=== PATIENT | male | born 1935 | race Caucasian/White ===

== ENCOUNTER 2020-04-06 09:36 | Emergency (ER) | payer MEDICARE, BC, SELFPAY ==
[2020-04-06] VITALS (9 sets, daily range): BP systolic 101–118; BP diastolic 58–78; PULSE 60–88; RESP 17–24; TEMP 36.8; O2SAT 97–98; BMI 26.6
--- NOTE | 2020-04-06 09:48 | XRR_ITS ---
PROCEDURE INFORMATION: Exam: XR Chest, 1 View Exam date and time: 04/06/2020 10:03 AM Age: 84 years old Clinical indication: Other: Syncope; Prior surgery; Surgery type: Pacemaker TECHNIQUE: Imaging protocol: XR of the chest Views: 1 view. COMPARISON: CR Chest 2 views* [id number] 12/03/2017 10:09 AM FINDINGS: Tubes, catheters and devices: Incomplete visualization of pacemaker. Lungs: Incomplete visualization of the lung base. Emphysematous change and interstitial prominence . Pleural space: Nonvisualization of the costophrenic angles. Heart/Mediastinum: Bypass surgery. No cardiomegaly. Bones/joints: Osteopenia and degenerative change. XR/XR chest 1V portable [id number] IMPRESSION: Emphysematous change and interstitial prominence in the incompletely visualized lung molina.
--- NOTE | 2020-04-06 09:48 | CT_ITS ---
WS: [id number] CT HEAD NONCONTRAST HISTORY: dizziness TECHNIQUE: Contiguous axial imaging performed through the brain in 2.5 mm imaging. Bone and soft tiss ue windows. Sagittal and coronal reformats reviewed. All CT scans at [facility] use at ast one of these dose optimization techniques: automated exposure control; mA and/or kV adjustment pe r patient size (includes targeted exams where dose is matched to clinical indication); or iterative r econstruction. DLP: 844.44 mGy.cm COMPARISON: 03/02/2017 No acute intracranial hemorrhage, midline shift or mass effect. Mild atrophy and chronic ischemic disease. Ventricles: Normal size with no hydrocephalus. Paranasal sinuses: Mild mucoperiosteal thickening in the maxillary sinuses. Mastoid air cells: Well pneumatized. Calvarium and scalp: Skull is intact with no soft tissue edema or swelling. CT/CT head wo con* [id number] IMPRESSION: 1. No acute intracranial hemorrhage or edema. 2. Mild atrophy and chronic ischemic disease.
--- NOTE | 2020-04-06 09:49 | ECG_ITS ---
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 Measurements Intervals [place] Rate: 65 P: 232 MI: 133 QRS: 236 QRSD: 175 T: 14 QT: 489 QTc: 512 Interpretive Statements ELECTRONIC ATRIAL PACEMAKER ELECTRONIC VENTRICULAR PACEMAKER Compared to ECG 12/04/2017 12:47:57 No significant changes Electronically Signed On 04-07-2020 20:26:38 CDT by Marek Redmond M.D. [email or web address]
[2020-04-06 10:17] LABS: Basophils # 0.1 10^3/uL (0.0-0.1); Basophils % 0.2 %; Eosinophils # 0.1 10^3/uL (0.0-0.8); Eosinophils % 0.3 %; Hematocrit 30.7 % (42.0-52.0); Lymphocytes # 0.9 10^3/uL (0.8-4.8); Mean Corpuscular HGB Conc 32.6 g/dL (30.0-36.0); Mean Corpuscular Hemoglobin 26.4 pg (28.0-34.0); Monocytes # 1.3 10^3/uL (0.2-0.9); Monocytes % 6.1 %; Neutrophils % 87.7 %; Nucleated Red Blood Cells % 0 %; Platelet Count 148 10^3/cmm (130-400); Red Blood Count 3.79 10^6/uL (4.1-5.3); White Blood Count 21.1 10^3/uL (4.0-10.0)
--- NOTE | 2020-04-06 10:28 | ED_ITS ---
HPI - Dizziness General: Chief Complaint: Dizziness Stated Complaint: WEAKNESS Time Seen by Provider: 04/06/20 09:43 History of Present Illness: HPI Narrative: 84-year-old male patient presents to the emergency department via EMS from home. He reports onset of weakness and dizziness that started this morning upon awakening around 730. Per EMS, stroke scale 0. Patient reports his blood pressure this morning was 80/40, EMS reports blood pressure 110/60; permanent pacemaker placed 2017. History of underlying atrial fib and sick sinus syndrome, patient of Dr. Gordon with last evaluation December 2019, previous TAVR/CABG. He denies chest pain upon exam. Glucose stick in route was 125. He reports positive dysuria for 2 weeks, has seen his primary care provider, Dr. Daly for this but no antibiotic therapy prescribed. He reports the room is spinning when he sets up. He is alert, per EMS, baseline orientation is secured. MD elicited complaint: dizziness, lightheadedness, difficulty walking, vertigo and disequilibrium Pertinent past history: inner ear problems and pacemaker Onset (ago): hour(s) (1-2) Timing: sudden onset Severity: moderate Description: room spinning , lightheadedness, off-balance and difficulty walking Context: exertion History of similar symptoms: No Exacerbating factors: movement/ambulation and change in body position Relieving factors: lying down Associated symptoms: Denies chest pain, chills, diaphoresis, headache(s), nausea, palpitations or vomiting Associated neuro symptoms: Reports extremity weakness Review of Systems General: Reports: 10 or more systems reviewed and unremarkable except in HPI and below Const: Denies: fever(s), chills, body aches or diaphoresis Eyes: Denies: blurry vision or eye redness ENMT: Denies: throat pain, hoarseness, oral sores, dental pain or disequilibrium Card: Denies: chest pain, palpitations or irregular heart rhythm Resp: Denies: dyspnea, productive cough, non-productive cough or wheezing GI: Denies: abdominal pain, nausea or vomiting : Denies: dysuria Musc: Denies: back pain Skin/Breast: Denies: rash or pruritus Neuro: Reports: weakness in extremities, lack of coordination, difficulty walking, dizziness and vertigo; Denies: headache(s), behavioral changes or Slurred speech present Bebeto/Lymph: Denies: easy bruising PFSH ED PFSH: Medical History (Updated 04/06/20 @ 15:29 by Jodie Huizar MD) Anticoagulation adequate with anticoagulant therapy Direct thrombin inhibitor Pradaxa Aortic stenosis ASHD (arteriosclerotic heart disease) Atrial fibrillation Carotid stenosis, bilateral CKD (chronic kidney disease) Dyslipidemia HTN (hypertension) Ischemic cardiomyopathy Mitral regurgitation Pulmonary HTN SSS (sick sinus syndrome) Surgical History S/P CABG (coronary artery bypass graft) S/P ICD (internal cardiac defibrillator) procedure S/P TAVR (transcatheter aortic valve replacement) Family History Mother CAD (coronary artery disease) Father Stroke Social History Smoking and tobacco status: never smoked Household members: spouse Marital status: Physical Exam Const: COMMON NORMALS: no acute distress and alert GENERAL APPEARANCE: cooperative, comfortable, frail appearing and well hydrated NUTRITIONAL APPEARANCE: thin ORIENTATION/CONSCIOUSNESS: Yes awake, Yes oriented to person, Yes oriented to place and Yes confused (Reports ear 1999; reports month February; reports President is Paco) HENMT: COMMON NORMALS: normocephalic, atraumatic and Normal external nose present HEAD & SCALP: normal to inspection, normocephalic and atraumatic FACE & SINUS: normal facial exam NOSE: Normal external nose present MOUTH: Normal oral and palatal mucosa present THROAT: posterior oropharynx normal Eye: COMMON NORMALS: Equal, round and reactive pupils present and EOMs intact bilaterally GENERAL EYE: appearance normal, both eyes and all related structures PUPIL: Yes Equal, round and reactive pupils present Neck/C-Spine: COMMON NORMALS: full ROM and no lymphadenopathy GENERAL: Yes normal visual inspection and Yes trachea midline CERVICAL SPINE: Yes cervical ROM normal Lymph: LYMPHATIC: no lymphadenopathy noted Chest: COMMONS NORMALS: normal inspection of the chest and normal palpation of entire chest wall Resp: COMMON NORMALS: normal respiratory effort and clear to auscultation bilaterally AUSCULTATION: clear to auscultation bilaterally Cardio: COMMON NORMALS: regular rhythm, S1 normal heart sound present, S2 normal heart sound present and Peripheral pulses 2+ throughout RHYTHM: regular rhythm HEART SOUNDS: S1 normal heart sound present and S2 normal heart sound present PERIPHERAL PULSES: Peripheral pulses 2+ throughout GI: COMMON NORMALS: Normal to inspection, nondistended, normoactive bowel sounds present, Soft to palpation and non-tender INSPECTION: Yes normal to inspection AUSCULTATION: Yes normoactive bowel sounds PALPATION: Yes Soft to palpation and Yes Bladder palpation abnormal : COMMON NORMALS: Yes no CVA tenderness BLADDER/KIDNEY EXAM: Yes no CVA tenderness and Yes Bladder palpation abnormal Bladder abnormal details: tender and distended to the umbilicus Back/Pelvis: COMMON NORMALS: no CVA tenderness and thoracic and lumbar spine normal to inspection Extremity: COMMON NORMALS: normal to inspection and capillary refill normal Neuro: COMMON NORMALS: no focal motor deficits SENSORIUM/ORIENTATION: Yes alert, Yes oriented to person and Yes oriented to place Psych: COMMON NORMALS: mental status grossly normal, Normal thought process present and cooperative ACTIVITY/MOTOR BEHAVIOR: Yes appropriate eye contact THOUGHT PROCESS: Normal thought process present Skin: COMMON NORMALS: no rashes or lesions noted and turgor normal GENERAL SKIN EXAM: no rashes or lesions noted and turgor normal Course ED course: 84-year-old male patient presents to the emergency department via EMS secondary to onset of dizziness and weakness that occurred this morning upon awakening. White blood count elevated, hyponatremia noted with sodium 126, transfer of care to Dr. Huizar as patient will more than likely require hospital admission. CT scan pending at this time Vital Signs: Vital signs: Vital Signs Temperature 98.3 F 04/06/20 09:37 Pulse Rate 88 04/06/20 16:34 Respiratory Rate 18 04/06/20 16:34 Blood Pressure 106/66 04/06/20 16:34 Pulse Oximetry 98 04/06/20 16:34 MDM - Dizziness Lab Data: Labs: Lab Results 04/06/20 04/06/20 04/06/20 Range/Units 10:10 10:10 10:10 WBC 21.1 H (4.0-10.0) 10^3/ uL RBC 3.79 L (4.1-5.3) 10^6/u L Hgb 10.0 L (11.7-16.6) g/dL Hct 30.7 L (42.0-52.0) % MCV 81.0 (80-94) fL MCH 26.4 L (28.0-34.0) pg MCHC 32.6 (30.0-36.0) g/dL RDW 17.0 H (12.1-15.1) % Plt Count 148 (130-400) 10^3/c mm MPV Not Reportable Neut % (Auto) 87.7 % Lymph % (Auto) 4.0 % [place] % (Auto) 6.1 % Eos % (Auto) 0.3 % Baso % (Auto) 0.2 % Neut # (Auto) 18.50 H (1.8-7.7) 10^3/u L Lymph # (Auto) 0.9 (0.8-4.8) 10^3/u L [place] # (Auto) 1.3 H (0.2-0.9) 10^3/u L Eos # (Auto) 0.1 (0.0-0.8) 10^3/u L Baso # (Auto) 0.1 (0.0-0.1) 10^3/u L Nucleated RBC % (a uto) 0 % Nucleated RBCs # 0.0 /100WBC Poikilocytosis 1+ H Ovalocytes 1+ H [place] Cells 1+ H Sodium 126 L (136-145) mmol/L Potassium 4.3 (3.5-5.1) mmol/L Chloride 96 L (98-107) mmol/L Carbon Dioxide 17 L (22-29) mmol/L Anion Gap 17.3 (5-19) BUN 23 (8-23) mg/dL Creatinine 1.5 H (0.7-1.2) mg/dL GFR Calculation Not Reportable Glucose 115 (65-115) mg/dL Calculated Osmolal ity 267 L (285-295) mOsm/k g Calcium 8.4 L (8.5-10.5) mg/dL Total Bilirubin 2.6 H (0.15-1.2) mg/dL AST 46 H (0-40) U/L ALT 37 (0-41) U/L Alkaline Phosphata se 265 H (40-130) IU/L Troponin T Baselin e 44 H (0-15) ng/L Troponin T 120 Min [place] (0-15) ng/L Delta Troponin T (0-10) ABS# Total Protein 6.4 L (6.6-8.7) g/dL Albumin 3.0 L (3.5-5.2) g/dL Globulin 3.4 (1.3-4.6) g/dL Lipase (13-60) U/L Urine Color (Yellow) Urine Appearance (CLEAR) Urine pH (5-7) Ur Specific Gravit y (1.005-1.030) Urine Protein (Negative) Urine Glucose (UA) (Normal) Urine Ketones (Negative) Urine Blood (Negative) Urine Nitrate (Negative) Urine Bilirubin (Negative) Urine Urobilinogen (Negative) mg/dL Ur Leukocyte Luci ase (Negative) Urine RBC (0-2) /hpf Urine WBC (0-5) /hpf Ur Squamous Epith Cells (0-5) /hpf Amorphous Sediment /hpf Urine Bacteria (NONE) /hpf Hyaline Casts /lpf Urine Mucus /hpf Urine Sperm /hpf 04/06/20 04/06/20 04/06/20 Range/Units 10:10 12:30 13:55 WBC (4.0-10.0) 10^3/ uL RBC (4.1-5.3) 10^6/u L Hgb (11.7-16.6) g/dL Hct (42.0-52.0) % MCV (80-94) fL MCH (28.0-34.0) pg MCHC (30.0-36.0) g/dL RDW (12.1-15.1) % Plt Count (130-400) 10^3/c mm MPV Neut % (Auto) % Lymph % (Auto) % [place] % (Auto) % Eos % (Auto) % Baso % (Auto) % Neut # (Auto) (1.8-7.7) 10^3/u L Lymph # (Auto) (0.8-4.8) 10^3/u L [place] # (Auto) (0.2-0.9) 10^3/u L Eos # (Auto) (0.0-0.8) 10^3/u L Baso # (Auto) (0.0-0.1) 10^3/u L Nucleated RBC % (a uto) % Nucleated RBCs # /100WBC Poikilocytosis Ovalocytes [place] Cells Sodium (136-145) mmol/L Potassium (3.5-5.1) mmol/L Chloride (98-107) mmol/L Carbon Dioxide (22-29) mmol/L Anion Gap (5-19) BUN (8-23) mg/dL Creatinine (0.7-1.2) mg/dL GFR Calculation Glucose (65-115) mg/dL Calculated Osmolal ity (285-295) mOsm/k g Calcium (8.5-10.5) mg/dL Total Bilirubin (0.15-1.2) mg/dL AST (0-40) U/L ALT (0-41) U/L Alkaline Phosphata se (40-130) IU/L Troponin T Baselin e (0-15) ng/L Troponin T 120 Min [place] 43.11 H (0-15) ng/L Delta Troponin T -0.89 L (0-10) ABS# Total Protein (6.6-8.7) g/dL Albumin (3.5-5.2) g/dL Globulin (1.3-4.6) g/dL Lipase 47 (13-60) U/L Urine Color Yellow (Yellow) Urine Appearance Clear (CLEAR) Urine pH 5 (5-7) Ur Specific Gravit y 1.015 (1.005-1.030) Urine Protein Neg (Negative) Urine Glucose (UA) Norm (Normal) Urine Ketones Negative (Negative) Urine Blood 3+ H (Negative) Urine Nitrate Negative (Negative) Urine Bilirubin Neg (Negative) Urine Urobilinogen Neg (Negative) mg/dL Ur Leukocyte Luci ase Negative (Negative) Urine RBC 15-25 H (0-2) /hpf Urine WBC 0-4 H (0-5) /hpf Ur Squamous Epith Cells None (0-5) /hpf Amorphous Sediment 1+ /hpf Urine Bacteria 1+ H (NONE) /hpf Hyaline Casts 0-4 H /lpf Urine Mucus 2+ /hpf Urine Sperm 1+ /hpf Imaging Data^: CXR: Radiologist's impression: [address] [address] XRay Report Signed Patient: Tank Saavedra Unit #: [id number] : 1935 Age/Sex: 84 / M ADM Date: 04/06/20 Loc: ER Room/Bed: Attending Dr: Ordering Provider/Ordering MD: Kathy Millan Date of Service: 04/06/20 Procedure(s): XR chest 1V portable [id number] Accession Number(s): [id number] Report Number: [id number] PROCEDURE INFORMATION: Exam: XR Chest, 1 View Exam date and time: 04/06/2020 10:03 AM Age: 84 years old Clinical indication: Other: Syncope; Prior surgery; Surgery type: Pacemaker TECHNIQUE: Imaging protocol: XR of the chest Views: 1 view. COMPARISON: CR Chest 2 views* [id number] 12/03/2017 10:09 AM FINDINGS: Tubes, catheters and devices: Incomplete visualization of pacemaker. Lungs: Incomplete visualization of the lung base. Emphysematous change and interstitial prominence . Pleural space: Nonvisualization of the costophrenic angles. Heart/Mediastinum: Bypass surgery. No cardiomegaly. Bones/joints: Osteopenia and degenerative change. XR/XR chest 1V portable [id number] IMPRESSION: Emphysematous change and interstitial prominence in the incompletely visualized lung molina. Dictated By: Graham Wise MD Signed By: Graham Wise MD Signed Date/Time: 04/06/20 105 DD/ 105 Discharge Plan Discharge Patient Disposition: Home Clinical Impression: Acute urinary retention, Dizziness Benign prostatic hyperplasia Qualifiers: Lower urinary tract symptom presence: symptoms present Lower urinary tract symptom detail: urinary retention Qualified Code(s): N40.1 - Benign prostatic hyperplasia with lower urinary tract symptoms Condition: Stable Prescriptions: No Action Pradaxa 75 mg capsule 75 mg PO BID Qty: 180 RF: 4 lisinopril 20 mg tablet 20 mg PO BID RF: 0 atorvastatin 40 mg tablet 40 mg PO DAILY RF: 0 carvedilol 25 mg tablet 25 mg PO BID RF: 0 amlodipine 5 mg tablet 2.5 mg PO BID RF: 0 furosemide 40 mg tablet 40 mg PO BID RF: 0 potassium chloride [Klor-Con M10] 10 mEq tablet,ER particles/crystals 10 meq PO DAILY RF: 0 nitroglycerin [Nitrostat] 0.4 mg tablet, sublingual 0.4 mg SUBLINGUAL Q5M PRNRF: 0 cetirizine [Zyrtec] 10 mg tablet 10 mg PO DAILY PRNRF: 0 omega-3 fatty acids [Fish Oil Concentrate] 1,000 mg capsule 1,000 mg PO DAILY RF: 0 cholecalciferol (vitamin D3) 400 unit capsule 400 unit PO DAILY RF: 0 lycopene 10 mg capsule 10 mg PO DAILY RF: 0 Durezol 0.05 % drops 1 drop ophthalmic (eye) BID RF: 0 hydrocodone-acetaminophen 5-325 mg tablet 1 tab PO Q8H PRNRF: 0 triamcinolone acetonide 55 mcg/actuation aerosol INTRANASAL DAILY RF: 0 levothyroxine 137 mcg capsule 150 mcg PO DAILY RF: 0 clopidogrel 75 mg tablet 75 mg PO DAILY Qty: 90 RF: 4 Discharge Orders: Discharge Order (Routine); Ordered 04/06/20 Ordered By: Jodie Huizar Referrals: Calixto Young MD [Physician] - 7-10 days Jacquie Coto NP [Primary Care Provider] - Discharge Diet: Usual diet Discharge Activity: Limit activity as instructed Patient Instructions: Wang Catheter Placement and Care (ED), Dizziness (ED) Activity Restrictions/Additional Instructions: Extremely cautious when getting up and around in case the dizziness returns. Follow-up with Dr. Young in about a week to discuss management of the catheter and urinary retention. Follow-up with your own doctor if episodes of dizziness continue. Discharge Date/Time: 04/06/20 16:34 Coding Level of Care Code ED Technology Resource Teacher for Rod Fwd Exam Comprehensive
[2020-04-06 10:37] LABS: Add RBC Morph Yes; Burr Cells 1+; Ovalocytes 1+; Poikilocytosis 1+; RBC Morph Comp Yes; Slide Review Slide Review Perform
[2020-04-06 10:51] LABS: Alanine Aminotransferase 37 U/L (0-41); Alkaline Phosphatase 265 IU/L (40-130); Anion Gap 17.3 (5-19); Aspartate Amino Transferase 46 U/L (0-40); Blood Urea Nitrogen 23 mg/dL (8-23); Calcium 8.4 mg/dL (8.5-10.5); Carbon Dioxide 17 mmol/L (22-29); Chloride 96 mmol/L (98-107); Globulin 3.4 g/dL (1.3-4.6); Glucose 115 mg/dL (65-115); Osmolality Calculated 267 mOsm/kg (285-295); Potassium 4.3 mmol/L (3.5-5.1); Sodium 126 mmol/L (136-145); Total Bilirubin 2.6 mg/dL (0.15-1.2); Total Protein 6.4 g/dL (6.6-8.7); Troponin(5th) Baseline 44 ng/L (0-15)
--- NOTE | 2020-04-06 11:24 | CT_ITS ---
WS: [id number] CT ABDOMEN AND PELVIS NONCONTRAST HISTORY: abdominal pain TECHNIQUE: Imaging performed through the abdomen and pelvis. Coronal and sagittal reformats are submi tted. All CT scans at [facility] use at least one of these dose optimization techniques: automated exposure control; mA and/or kV adjustment per patient size (includes targeted exams where d ose is matched to clinical indication); or iterative reconstruction. DLP: 1458.66 mGy.cm COMPARISON: 08/19/2006 Lower thorax: Small bilateral pleural effusions. Dependent changes at the lung bases with no pneumoni a. Markedly enlarged heart. Aortic valve replacement. LEFT subclavian dual lead cardiac pacer wires. Liver: Normal size liver with hepatic steatosis. Small amount of perihepatic fluid. Gallbladder: Gallbladder is slightly contracted and partially calcified wall. Pancreas: Normal size and attenuation. Normal pancreatic duct. No pancreatitis or mass. Spleen: Normal size spleen with a small amount of perisplenic ascites. Adrenal glands: Normal. No mass. Right kidney: Moderate perinephric stranding. There is no GI tract obstruction. Exophytic cyst from t he anterior and posterior kidney. These cysts are new since the prior study. The largest measures 2 c m. Left kidney: Moderate perinephric stranding. No obstruction. There is a large exophytic cyst from the lower pole maximum diameter 7.5 cm. Aorta: Extensive atherosclerosis of aorta. No aneurysm. There is a small amount of ascites adjacent to the liver and spleen. There is mild diffuse mesenteric edema and perinephric stranding. Subcentimeter retroperitoneal lymph nodes. GI tract: No GI tract obstruction. No wall thickening or acute inflammation. Abdominal wall: Negative. No hernia. Pelvis: Marked distention of the urinary bladder. Urinary bladder extends over a length of 18.8 cm. P rostate gland is enlarged. Osseous structures: Mild lumbar spondylosis. CT/CT kidney stone [id number] IMPRESSION: 1. Markedly distended urinary bladder. May be due to bladder outlet obstructio n as the prostate gland is enlarged. 2. Moderate diffuse perinephric stranding with no hydronephrosis. 3. Small amount of mesenteric edema. 4. Small amount of ascites. 5. Partially calcified gallbladder. 6. Cardiac enlargement with small bilateral pleural effusions.
--- NOTE | 2020-04-06 11:49 | ECG_ITS ---
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 Measurements Intervals [place] Rate: 60 P: 240 MS: 129 QRS: 234 QRSD: 192 T: 28 QT: 550 QTc: 550 Interpretive Statements ELECTRONIC ATRIAL PACEMAKER ELECTRONIC VENTRICULAR PACEMAKER PROLONGED QT INTERVAL CRITICAL TEST RESULT Compared to ECG 04/06/2020 10:04:21 Prolonged QT interval now present Electronically Signed On 04-07-2020 20:52:16 CDT by Marek Redmond M.D. [id number]
[2020-04-06] MEDS: sodium chloride 0.9% 500 ML 999 ML IV (12:10)
[2020-04-06 12:25] LABS: Lipase 47 U/L (13-60)
[2020-04-06 13:24] LABS: Troponin 5 2HR 43.11 ng/L (0-15); Troponin 5 2HR Delta -0.89 ABS# (0-10)
[2020-04-06 14:21] LABS: Add Urine Microscopic? YES; Bilirubin Urine Neg (Negative); Blood Urine 3+ (Negative); Glucose Urine UA Norm (Normal); Ketones Urine Negative (Negative); Leukocyte Esterase Urine Negative (Negative); Nitrate Urine Negative (Negative); Protein Urine Neg (Negative); Specific Gravity, Urine 1.015 (1.005-1.030); Urine Appearance Clear (CLEAR); Urine Color Yellow (Yellow); Urobilinogen Urine Neg (Negative); pH Urine 5 (5-7)
[2020-04-06 14:33] LABS: RBC Urine 15-25 /hpf (0-2); WBC Urine 0-4 /hpf (0-5)
[2020-04-06 14:34] LABS: Add Urine Culture? No; Amorphous Sediment Urine 1+ /hpf; Bacteria Urine 1+ /hpf; Hyaline Casts Urine 0-4 /lpf; Mucus Urine 2+ /hpf; Sperm Urine 1+ /hpf
--- NOTE | 2020-04-06 16:00 | PC.NURSE ---
Patient ambulated really well with walker, denies any dizziness or weakness, no abnormal gait noted.
== END 2020-04-06 16:34 | disposition home or self-care (01) ==
PROVIDERS: Nurse Practitioner Family; Emergency Provider Emergency Medicine; PCP Nurse Practitioner Family
DX: N40.1 Benign prostatic hyperplasia with lower urinary tract symptoms (principal); R42 Dizziness and giddiness; Z79.02 Long term (current) use of antithrombotics/antiplatelets; I48.91 Unspecified atrial fibrillation; E78.5 Hyperlipidemia, unspecified; I10 Essential (primary) hypertension; Z95.1 Presence of aortocoronary bypass graft
CPT/HCPCS: 12345; 36415; 51702; 70450; 71045; 74176; 80053; 81001; 83690; 84484; 85025; 87040; 87077; 87186; 87205; 93005; 99284; J7040

== ENCOUNTER 2020-04-14 21:31 | Inpatient (IN) | payer MEDICARE, BC, SELFPAY ==
[2020-04-14 21:41] VITALS: BP 94/56; PULSE 72; RESP 23; TEMP 37.4; O2SAT 94; BMI 23.7
--- NOTE | 2020-04-14 21:53 | XR_ITS ---
WS: [id number] Portable AP upright chest, 04/14/2020 Clinical Data: sepsis Comparison: Portable chest, 04/06/2020. Findings: No nodules, masses or effusions are seen. The heart is enlarged. The pulmonary vascularity is not increased. No pneumonia or pneumothorax is seen. The multilead pacemaker remains in same posit ion with the generator overlying the left lateral chest. The aortic arch and descending aorta are tor tuous. Midline sternotomy sutures are present. There is atelectasis at the left costophrenic angle. M onitor leads are on the chest wall. Osteoarthritic change of the right shoulder is noted. XR/XR chest 1V portable [id number] Impression: 1. Cardiomegaly and atherosclerosis. 2. Probable left basilar atelectasis unchanged.
--- NOTE | 2020-04-14 21:58 | W.ED.WEAKNES ---
HPI - Weakness General: Chief complaint: Weakness Stated complaint: weakness Time Seen by Provider: 04/14/20 21:40 Source: patient, family () and EMS Limitations: altered mental status History of Present Illness: HPI Narrative: Patient is an 84-year-old gentleman who was brought in today via ambulance with complaints of generalized weakness. His states that he is also lost appetite and has lost energy. The patient appears confused and was unable to give me history, all the history was given by the and ambulance. Patient was seen in this emergency department about 8 days ago and as part of his evaluation blood cultures were drawn which eventually grew out strep viridans in all bottles. He was called in a prescription for Augmentin and his states that he has had 3 doses so far. She states he has had a little bit of a cough but denied any fever. He had a low-grade temperature on arrival to the emergency department. Patient also had urinary retention when he was seen here last time and the Wang catheter was placed. He saw the urologist yesterday. Because of the patient's extreme weakness the decided that he needed to be evaluated in the emergency department. Patient hypotensive on arrival. MD Complaint: generalized weakness Review of Systems General: Reports: ROS unobtainable due to mental status PFS ED PFSH: Medical History (Reviewed 04/14/20 @ 22:05 by Suleman Moore MD, [facility] Anticoagulation adequate with anticoagulant therapy Direct thrombin inhibitor Pradaxa Aortic stenosis ASHD (arteriosclerotic heart disease) Atrial fibrillation Carotid stenosis, bilateral CKD (chronic kidney disease) Dyslipidemia Gross hematuria HTN (hypertension) Ischemic cardiomyopathy Mitral regurgitation Pulmonary HTN SSS (sick sinus syndrome) Surgical History (Reviewed 04/14/20 @ 22:05 by Suleman Moore MD, [facility] S/P CABG (coronary artery bypass graft) S/P cataract extraction S/P hernia repair S/P ICD (internal cardiac defibrillator) procedure S/P TAVR (transcatheter aortic valve replacement) Family History (Reviewed 04/14/20 @ 22:05 by Suleman Moore MD, [facility] Mother CAD (coronary artery disease) Father Stroke Social History (Reviewed 04/14/20 @ 22:05 by Suleman Moore MD, [facility] Smoking and tobacco status: never smoked Household members: spouse Marital status: Physical Exam Const: COMMON NORMALS: no acute distress, average body habitus, no limitations, healthy appearing, alert and well nourished ORIENTATION/CONSCIOUSNESS: Yes oriented to person HENMT: COMMON NORMALS: normocephalic, atraumatic and moist oral mucous membranes HEAD & SCALP: normocephalic and atraumatic Eye: COMMON NORMALS: Equal, round and reactive pupils present, EOMs intact bilaterally, conjunctivae normal and no scleral icterus CONJUNCTIVA: Yes conjunctivae normal PUPIL: Yes Equal, round and reactive pupils present Neck/C-Spine: COMMON NORMALS: full ROM, supple, no meningeal signs, no JVD and No carotid bruits Chest: COMMONS NORMALS: normal inspection of the chest and normal palpation of entire chest wall Resp: COMMON NORMALS: normal respiratory effort, No retractions, No use of accessory muscles, clear to auscultation bilaterally and percussion normal AUSCULTATION: clear to auscultation bilaterally PERCUSSION: percussion normal Cardio: COMMON NORMALS: no JVD, regular rate, regular rhythm, S1 normal heart sound present, S2 normal heart sound present, No gallops present (Cardio), No clicks present (Cardio), No murmurs present (Cardio), No rub (Cardio) and Peripheral pulses 2+ throughout RATE: regular rate RHYTHM: regular rhythm HEART SOUNDS: S1 normal heart sound present and S2 normal heart sound present PERIPHERAL PULSES: Peripheral pulses 2+ throughout GI: COMMON NORMALS: Normal to inspection, nondistended, normoactive bowel sounds present, Soft to palpation, non-tender, No hepatosplenomegaly present, no masses and no bruits PALPATION: Yes Soft to palpation and Yes No hepatosplenomegaly present Extremity: COMMON NORMALS: normal to inspection, full ROM, capillary refill normal, no calf tenderness and no pedal edema Neuro: SENSORIUM/ORIENTATION: Yes alert and Yes oriented to person MENINGEAL SIGNS: Yes no meningeal signs Skin: COMMON NORMALS: no rashes or lesions noted, no wounds, turgor normal, no jaundice, no petechiae and no mottling GENERAL SKIN EXAM: no rashes or lesions noted and turgor normal Course ED course: Patient who presents to the ED with clinical features consistent with sepsis. He was recently evaluated in the ED and blood cultures grew strep viridans and he was started on augmentin yesterday for this. He became weak today and his was concerned so he was brought in to be evaluated. Will admit him for further evaluation. Consultations: Consultation #1: Dr. Wilson, hospitalist and he kindly accepted the patient to his service. Vital Signs: Vital signs: Vital Signs Temperature 99.4 F 04/14/20 21:41 Pulse Rate 60 04/14/20 22:25 Respiratory Rate 22 H 04/14/20 22:25 Blood Pressure 88/51 04/14/20 22:25 Pulse Oximetry 95 04/14/20 22:25 MDM - Weakness MDM Narrative: Medical decision making narrative: Patient who came to the ED with AMS, and he is likely septic. He is at risk for infective endocarditis as he already has a confirmed bacteremia. He was given a dose of cefepime based on the sensitivity. He is admitted to the hospital for further evaluation and management. Medical Records: Attestation: I reviewed the patient's medical records. Lab Data: Attestation: I reviewed the patient's lab results. Labs: Lab Results 04/14/20 04/14/20 Range/Units 22:15 22:15 WBC 15.2 H (4.0-10.0) 10^3/ uL RBC 3.62 L (4.1-5.3) 10^6/u L Hgb 9.6 L (11.7-16.6) g/dL Hct 28.9 L (42.0-52.0) % MCV 79.8 L (80-94) fL MCH 26.5 L (28.0-34.0) pg MCHC 33.2 (30.0-36.0) g/dL RDW 17.4 H (12.1-15.1) % Plt Count 177 (130-400) 10^3/c mm MPV Not Reportable Neut % (Auto) 88.6 % Lymph % (Auto) 4.7 % Limestone % (Auto) 5.2 % Eos % (Auto) 0.2 % Baso % (Auto) 0.3 % Neut # (Auto) 13.44 H (1.8-7.7) 10^3/u L Lymph # (Auto) 0.7 L (0.8-4.8) 10^3/u L Limestone # (Auto) 0.8 (0.2-0.9) 10^3/u L Eos # (Auto) 0.0 (0.0-0.8) 10^3/u L Baso # (Auto) 0.0 (0.0-0.1) 10^3/u L Nucleated RBC % (a uto) 0 % Nucleated RBCs # 0.0 /100WBC Lactate 1.1 (0.5-2.2) mmol/L Critical Care Time Critical Care Time: Critical Care Time: Yes Total Critical Care Time: 45 Attestation: This case had a high probability of a clinically significant, sudden, or life threatening deterioration of this patient's condition which required my full and direct attention, intervention and personal management. 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
[2020-04-14] MEDS: cefepime 2,000 MG in sodium chloride 0.9% (plus) 50 ML 100 MG IV (22:18)
[2020-04-14] MEDS: sodium chloride 0.9% 1,000 ML 999 ML IV (22:19)
[2020-04-14 22:20] LABS: Basophils % 0.3 %; Eosinophils % 0.2 %; Hematocrit 28.9 % (42.0-52.0); Hemoglobin 9.6 g/dL (11.7-16.6); Lymphocytes # 0.7 10^3/uL (0.8-4.8); Lymphocytes % 4.7 %; Mean Corpuscular HGB Conc 33.2 g/dL (30.0-36.0); Mean Corpuscular Hemoglobin 26.5 pg (28.0-34.0); Mean Corpuscular Volume 79.8 fL (80-94); Monocytes # 0.8 10^3/uL (0.2-0.9); Monocytes % 5.2 %; Neutrophils # 13.44 10^3/uL (1.8-7.7); Neutrophils % 88.6 %; Nucleated Red Blood Cells % 0 %; Platelet Count 177 10^3/cmm (130-400); Red Blood Count 3.62 10^6/uL (4.1-5.3); Red Cell Distribution Width 17.4 % (12.1-15.1); White Blood Count 15.2 10^3/uL (4.0-10.0)
[2020-04-14 22:25] VITALS: BP 88/51; PULSE 60; RESP 22; O2SAT 95
[2020-04-14 22:37] LABS: Lactate (Lactic Acid level) 1.1 mmol/L (0.5-2.2)
[2020-04-14 22:41] LABS: Slide Review Slide Review Perform
--- NOTE | 2020-04-14 23:01 | P.HP_ITS ---
Providers/Chief Complaint Primary Care Provider: Jacquie Coto NP Chief Complaint: weakness History of Present Illness Tank Saavedra is a 84 year old male who has history of coronary disease status post CABG, pacemaker placement for sick sinus syndrome after CABG, atrial fibrillation, aortic stenosis status post TAVR, upgradation of pacemaker to defibrillator, presented today with chief complaint of generalized weakness. is at the bedside who is endorsing that lately he has been very weak, he experienced sinus congestion, rhinorrhea, no fever was noticed at home T-max 99 at home, no productive cough, diarrhea, chest pain or shortness of breath but lately he has been getting lethargic and weak on daily basis. On 04/06/2020 he presented to the [facility] [place] emergency department for weakness and dizziness, CT scan showed markedly distended bladder, Wang catheter placed for urinary tension, blood culture grew Streptococcus viridans pansensitive, Augmentin was called for him. Recently he has followed up with urology, with follow-up appointment next week. has not noticed confusion, but she is endorsing that he has been sleeping more, he has been taking naps more frequently. Diagnosis in the ER revealed leukocytosis, mild tachypnea, afebrile, he has been given cefepime in the ER, abnormal UA reviewed, hyponatremia, EMILY, he has been resuscitated with fluids as well in the ER, ESR 10, high procalcitonin Review of Systems Const: Reports: chills, body aches, fatigue, malaise and daytime sleepiness; Denies: fever(s) Eyes: Denies: change in vision ENMT: Reports: nasal discharge and nasal congestion; Denies: throat pain Card: Denies: chest pain Resp: Denies: dyspnea GI: Denies: abdominal pain : Denies: flank pain Musc: Reports: muscle weakness Skin/Breast: Reports: lesions Neuro: Reports: difficulty walking; Denies: headache(s) Psych: Reports: sleeping more Endo: Denies: polyuria Bebeto/Lymph: Denies: easy bruising All/Imm: Denies: urticaria Medications/Allergies Home Medications Medication Instructions Recorded Confirmed Last Taken Type amlodipine 5 mg tablet 2.5 mg PO BID tab 09/22/19 04/13/20 Unknown History atorvastatin 40 mg tablet 40 mg PO DAILY 09/22/19 04/13/20 Unknown History carvedilol 25 mg tablet 25 mg PO BID 09/22/19 04/13/20 Unknown History cetirizine 10 mg tablet 10 mg PO DAILY PRN tab 09/22/19 04/13/20 Unknown History cholecalciferol (vitamin D3) 10 400 unit PO DAILY 09/22/19 04/13/20 Unknown History mcg (400 unit) capsule difluprednate 0.05 % eye drops 1 drop OPHTHALMIC (EYE) BID 09/22/19 04/13/20 Unknown History furosemide 40 mg tablet 40 mg PO BID 09/22/19 04/13/20 Unknown History hydrocodone 5 mg-acetaminophen 325 1 tab PO Q8H PRN 09/22/19 04/13/20 Unknown History mg tablet lisinopril 20 mg tablet 20 mg PO BID 09/22/19 04/13/20 Unknown History lycopene 10 mg capsule 10 mg PO DAILY 09/22/19 04/13/20 Unknown History nitroglycerin 0.4 mg sublingual 0.4 mg SUBLINGUAL Q5M PRN 09/22/19 04/13/20 Unknown History tablet omega-3 fatty acids 1,000 mg 1,000 mg PO DAILY 09/22/19 04/13/20 Unknown History capsule potassium chloride 10 mEq 10 meq PO DAILY 09/22/19 04/13/20 Unknown History tablet,extended release(part/cryst) triamcinolone acetonide 55 mcg INTRANASAL DAILY 09/22/19 04/13/20 Unknown History mcg/actuation nasal spray,aerosol clopidogrel 75 mg tablet 75 mg PO DAILY #90 tab 12/24/19 04/13/20 Unknown Rx dabigatran etexilate 75 mg capsule 75 mg PO BID #180 cap 12/24/19 04/13/20 Unknown Rx levothyroxine 137 mcg capsule 150 mcg PO DAILY cap 12/24/19 04/13/20 Unknown History Allergies Allergy/AdvReac Type Severity Reaction Status Date / Time fenofibrate Allergy Unknown Unknown Verified 04/14/20 21:50 levofloxacin Allergy Unknown Unknown Verified 04/14/20 21:50 niacin Allergy Unknown Unknown Verified 04/14/20 21:50 PFSH Acute PFSH: Medical History Anticoagulation adequate with anticoagulant therapy Direct thrombin inhibitor Pradaxa Aortic stenosis ASHD (arteriosclerotic heart disease) Atrial fibrillation Carotid stenosis, bilateral CKD (chronic kidney disease) Dyslipidemia Gross hematuria HTN (hypertension) Ischemic cardiomyopathy Mitral regurgitation Pulmonary HTN SSS (sick sinus syndrome) Surgical History S/P CABG (coronary artery bypass graft) S/P cataract extraction S/P hernia repair S/P ICD (internal cardiac defibrillator) procedure S/P TAVR (transcatheter aortic valve replacement) Family History Mother CAD (coronary artery disease) Father Stroke Social History Smoking and tobacco status: never smoked Household members: spouse Marital status: Vitals/I&O/Wt Last Vital Signs Temp 99.4 F 04/14/20 21:41 Pulse 60 04/14/20 22:25 Resp 22 H 04/14/20 22:25 BP 88/51 04/14/20 22:25 Pulse Ox 95 04/14/20 22:25 Weight last 48 hrs Weight 81.647 kg Physical Exam Narrative: EXAM NARRATIVE: Pleasant elderly male, very frail Clinically looks dehydrated S1, S2, paced rhythm Urine catheter draining cloudy urine Abdomen soft, distended, bowel sound present nontender Patient is awake able to tell me date of , oriented x3, GCS 15, no neurological deficit Able to protect airways Bilateral breath sounds, no adventitious rhonchi or crackles, diminished at the bases Lower symmetry no edema gangrene or ulcer Multiple petechia on extremities, no active bleeding No decubitus ulcers No neurological deficit Appears fatigued and lethargic Data : 04/14/20 22:15 04/14/20 22:15 Micro: Microbiology 04/14/20 21:55 Blood Culture - Preliminary Blood SPECIMEN COLLECTED 04/14/20 22:15 Blood Culture - Preliminary Blood SPECIMEN COLLECTED A&P Assessment and plan (1) Sepsis: Status: Acute Qualifiers: Sepsis acute organ dysfunction status: unspecified Sepsis type: Streptococcus, other Qualified Code(s): A40.8 - Other streptococcal sepsis (2) Acute retention of urine: Status: Acute (3) BPH (benign prostatic hyperplasia): Status: Acute Additional A&P Information Sepsis Criteria met with tachypnea, leukocytosis, positive blood culture Patient is afebrile, Considering history of CHF, pleural effusion and ascites I would only give small amount of fluid for now, blood culture reviewed, pansensitive, I would use ceftriaxone because of abnormal UA and Streptococcus viridans bacteremia, no mouth sores however his dentures have green discoloration Would request echo in the morning to rule out endocarditis considering history of TAVR I would not add gentamicin or rifampin at this point EMILY due to acute urinary tension secondary to BPH Wang catheter draining cloudy urine, follows up with Dr. Young now Seems to be improving, 1.4 today, 2 weeks ago 1.5 Hold lisinopril Hypothyroidism: Continue levothyroxine, check TSH Reduced ejection fraction heart failure no acute exacerbation, I will hold Lasix for now Can resume tomorrow, mild ascites with bilateral pleural effusion evident on abdominal CT scan TAVR status post pacemaker placement with upgradation to defibrillator No acute decompensation, chest pain-free CODE STATUS: Full code( and patient were confused when I was discussing CODE STATUS, I spent a lot of time to explain goals of care, kindly readdress in the morning for now he is a full code) Cardiac diet DVT prophylaxis not needed currently on Pradaxa, slight drop in hemoglobin, monitor for now Physical therapy evaluation Attestations Medical Necessity Statement*: Anticipating stay in the hospital course more than 2 midnights continued IV antibiotics for bacteremia, need to rule out endocarditis, meets sepsis criteria Time Spent in Patient Care: (>than 50% of time spent in counselling and/or direct pt care on unit) . 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
[2020-04-14 23:14] LABS: Alanine Aminotransferase 28 U/L (0-41); Albumin Level 2.7 g/dL (3.5-5.2); Alkaline Phosphatase 250 IU/L (40-130); Anion Gap 16.3 (5-19); Aspartate Amino Transferase 34 U/L (0-40); Blood Urea Nitrogen 27 mg/dL (8-23); Carbon Dioxide 17 mmol/L (22-29); Chloride 94 mmol/L (98-107); Globulin 3.2 g/dL (1.3-4.6); Glucose 104 mg/dL (65-115); Osmolality Calculated 261 mOsm/kg (285-295); Potassium 4.3 mmol/L (3.5-5.1); Sodium 123 mmol/L (136-145); Total Protein 5.9 g/dL (6.6-8.7)
[2020-04-14 23:28] LABS: Bilirubin Urine Neg (Negative); Blood Urine 3+ (Negative); Glucose Urine UA Norm (Normal); Ketones Urine 1+ (Negative); Nitrate Urine Negative (Negative); Protein Urine 2+ (Negative); Specific Gravity, Urine 1.015 (1.005-1.030); Urine Appearance Cloudy (CLEAR); Urine Color Brown (Yellow); Urobilinogen Urine 1 mg/dL (Negative)
[2020-04-14 23:29] LABS: Add Urine Microscopic? YES; Bacteria Urine 2+ /hpf; Leukocyte Esterase Urine Trace (Negative); RBC Urine 50-80 /hpf (0-2)
[2020-04-14 23:30] VITALS: BP 100/63; PULSE 82; RESP 22; O2SAT 94
[2020-04-14 23:30] LABS: Add Urine Culture? Yes
[2020-04-15] VITALS (9 sets, daily range): BP systolic 98–119; BP diastolic 55–73; PULSE 60–71; RESP 16–20; TEMP 36.4–36.8; O2SAT 92–95
[2020-04-15 00:06] LABS: C Reactive Protein 42.9 mg/L (0.0-4.9); Procalcitonin 1.01 ng/mL (0-0.5)
[2020-04-15 00:09] LABS: Erythrocyte Sedimentation Rate 10 mm/hr (0-10)
[2020-04-15 00:58] LABS: SARS Covid-2 Antigen Negative (Negative)
--- NOTE | 2020-04-15 02:04 | USCV_ITS ---
Tank Saavedra Age: 84 Gender: M : 1935 Exam Date: 04/15/2020 07:11 Ordering Phys: Bo Wilson MD Technologist: Ivan Eller [place] [facility] [place]ication: CAD BP: 124 / 68 HR: 101 Rhythm: Sinus Technical Quality: Fair MEASUREMENTS (Male / Female) Normal Values 2D ECHO LV Diastolic Diameter PLAX 4.9 cm 4.2 - 5.9 / 3.9 - 5.3 cm LV Systolic Diameter PLAX 3.5 cm IVS Diastolic Thickness 1.2 cm 0.6 - 1.0 / 0.6 - 0.9 cm IVS Systolic Thickness 1.5 cm LVPW Diastolic Thickness 1.1 cm 0.6 - 1.0 / 0.6 - 0.9 cm LVPW Systolic Thickness 1.5 cm LVOT Diameter 2.0 cm LV Ejection Fraction 2D Teich 53.7 % LV Ejection Fraction MOD 2C 58.8 % LV Ejection Fraction 2C AL 55.9 % LA Diameter 4.6 cm Aorta at Sinotubular Diameter 1.3 cm M-MODE LV Diastolic Diameter MM 4.6 cm 4.2 - 5.9 / 3.9 - 5.3 cm LV Systolic Diameter MM 3.2 cm LV Ejection Fraction MM Teich 58.0 % IVS Diastolic Thickness MM 1.4 cm 0.6 - 1.0 / 0.6 - 0.9 cm IVS Systolic Thickness MM 1.6 cm LVPW Diastolic Thickness MM 1.4 cm 0.6 - 1.0 / 0.6 - 0.9 cm LVPW Systolic Thickness MM 2.2 cm RV Diastolic Diameter MM 3.1 cm Aortic Annulus Diameter 4.2 cm LA Ao Ratio MM 1.1 MV E Point Septal Separation 1.2 cm DOPPLER AV Peak Velocity 191.5 cm/s LVOT Peak Velocity 56.0 cm/s AV Area Cont Eq vti 0.8 cm squared AV Area Cont Eq pk 1.0 cm squared MV Area PHT 5.0 cm squared Mitral E to A Ratio 1.6 MV E' Velocity 49.0 cm/s Mitral E to MV E' Ratio 11.8 Mitral E to LV E' Lateral Ratio 10.7 Mitral E to LV E' Septal Ratio 13.4 TR Peak Velocity 280.7 cm/s TR Peak Gradient 31.5 mmHg TV Peak E Velocity 137.0 cm/s Right Atrial Pressure 3.0 mmHg Pulmonary Artery Systolic Pressu 34.5 mmHg FINDINGS Left Ventricle Normal left ventricular size and low normal systolic function. Increased wall thickness, with diagnostic no regional wall motion abnormalities. Left ventricular ejection fraction is estimated at 50-55 %. Abnormal diastolic function. Right Ventricle Normal right ventricular size and systolic function, RVSP 34.5 mmHg. Pacemaker wire visualized in the right ventricle. Right Atrium Mildly increased right atrial size. Left Atrium Mildly increased left atrial size. Mitral Valve Moderate mitral annular calcification. Mildly thickened mitral valve. No mitral valve stenosis. Trace mitral valve regurgitation. Aortic Valve Aortic valve not well visualized. TAVR valve in situ. Mean gradient 8.2 mmHg and peak velocity 2 m/s Tricuspid Valve Tricuspid valve not well visualized. Moderate tricuspid valve regurgitation. Pulmonic Valve Pulmonic valve not well visualized. Pericardium No pericardial effusion. Aorta Normal sized aortic root. CONCLUSIONS 1. Normal left ventricular size and systolic function. Increased wall thickness, with diagnostic no regional wall motion abnormalities. Left ventricular ejection fraction is estimated at 55 %. Abnormal diastolic function. 2. Normal right ventricular size and systolic function, RVSP 34.5 mmHg. 3. TAVR valve in situ. Mean gradient 8.2 mmHg and peak velocity 2 m/s. 4. There is no evidence of endocarditis based on this study. PRICILA is recommended, if clinically indicated. 5. When compared to previous study dated 12/03/2017, left ventricular systolic function has improved. Irma Granados MD (Electronically Signed) Final Date: 15 April 2020 15:12 S
[2020-04-15] MEDS: sodium chloride 0.9% 250 ML IV (02:40)
[2020-04-15] MEDS: cefTRIAXone 2,000 MG in sodium chloride 0.9% (plus) 50 ML 100 MG IV (03:15)
[2020-04-15 05:29] LABS: Basophils % 0.3 %; Eosinophils % 0.3 %; Hematocrit 28.5 % (42.0-52.0); Hemoglobin 9.1 g/dL (11.7-16.6); Lymphocytes # 1.3 10^3/uL (0.8-4.8); Lymphocytes % 9.5 %; Mean Corpuscular HGB Conc 31.9 g/dL (30.0-36.0); Mean Corpuscular Hemoglobin 26.2 pg (28.0-34.0); Mean Corpuscular Volume 82.1 fL (80-94); Mean Platelet Volume 13.7 fL (7.4-10.4); Monocytes # 0.8 10^3/uL (0.2-0.9); Neutrophils # 11.12 10^3/uL (1.8-7.7); Neutrophils % 83.1 %; Nucleated Red Blood Cells % 0 %; Platelet Count 164 10^3/cmm (130-400); Red Blood Count 3.47 10^6/uL (4.1-5.3); Red Cell Distribution Width 17.3 % (12.1-15.1); White Blood Count 13.4 10^3/uL (4.0-10.0)
[2020-04-15 06:07] LABS: Slide Review Slide Review Perform
[2020-04-15 06:18] LABS: Anion Gap 14.3 (5-19); Blood Urea Nitrogen 25 mg/dL (8-23); Calcium 7.6 mg/dL (8.5-10.5); Carbon Dioxide 19 mmol/L (22-29); Chloride 96 mmol/L (98-107); Glucose 99 mg/dL (65-115); Osmolality Calculated 264 mOsm/kg (285-295); Potassium 4.3 mmol/L (3.5-5.1); Sodium 125 mmol/L (136-145)
[2020-04-15] MEDS: atorvastatin 40 mg Tablet PO (08:28)
[2020-04-15] MEDS: levothyroxine 150 mcg Tablet PO (08:31)
[2020-04-15] MEDS: clopidogrel 75 mg Tablet PO (08:31)
--- NOTE | 2020-04-15 09:11 | US_ITS ---
WS: [id number] Gallbladder and right upper quadrant ultrasound, 04/15/2020 Clinical Data: RUQ us for acute cholecystitis Comparison: Gallbladder ultrasound, 12/13/2017. Findings: The gallbladder shows acoustic shadowing from dense stones.. The wall measures 0.4 cm with no pericho lecystic fluid. The common bile duct is 0.5 cm and there are no intrahepatic ductal abnormalities. Liver shows no cysts, masses or dilated intrahepatic ducts. The liver measured 16.34 cm in greatest d iameter. The pancreas is obscured by overlying bowel gas but no cyst, pseudocyst, or evidence of pancreatitis is noted. Right kidney measures 12.9 cm and there were several cortical cysts, the largest of which measuring 1 .63 x 2.12 x 2.48 cm. The aorta and inferior vena cava show dilatation of the IVC to 2.67 cm. US/US abdomen limited [id number] Impression: 1. Numerous gallstones. 2. Dilated gallbladder wall which can indicate acute and or chronic cholecystit is. 3. Several right renal cortical cysts.
--- NOTE | 2020-04-15 09:29 | PC.CHAP ---
Pastoral Care Encounter/Spiritual Assessment Type of Contact [] Declined attendant self service store visit [] Patient/Family/Request visit [] Outpatient visit [] Follow-up visit [] Physician referral [] Code/Alert [] Routine visit [] Staff referral [] Actively dying [] Patient sleeping [] Family support [] [] Out of room [] Palliative care [] [] Receiving care in room [] Pre-surgical visit [] Trauma [] Long length of stay [] ICU visit [] Other: Relational/Emotional Strength [] Patient feels connected with others/family/visitors/staff [] Distress [] Loneliness/isolation [] Abandonment Spirituality of Patient [x] Person of Carrol [x] Attends Scientology of their [place] [] Believes in Prayer [] Reads Bible or Adventism materials [] There are Spiritual issues to be addressed Counseling Director Interventions [x] Prayer [] Active listening [] Non-anxious presence [] Spiritual/emotional support [] Crisis/trauma care [] Spiritual counseling [] Bereavement support [] Provided bereavement packet [] Provided Bible/devotional materials [] Provided toy/stuffed animal, coloring book to patient or family member [] Provided Communion [] Anointing/[place] [] Salvation [x Completed spiritual assessment [] Other: Impact on Illness or Injury [] Angry [] Fearful [] Anxious [] Often cries [] Exhaustion [] Unable to work [] Unable to attend orthodox [] Unable to walk/stand [] Unable to read [] Unable to drive [] Unable to eat/drink [] Unable to sleep [] Unable to be with family [] Patient intubated [] Other: Summary week Time spent with patient 10 min
--- NOTE | 2020-04-15 10:52 | CT_ITS ---
WS: [id number] CT ABDOMEN PELVIS TECHNIQUE: Contrast-enhanced CT of the abdomen and pelvis with coronal and sagittal reformatted image s. CLINICAL INFORMATION: RUQ pain, AMS, COMPARISON: CT April 06, 2020 DLP: 2038.[address] scans at [facility] use at least one of these dose optimization techniques: automat ed exposure control; mA and/or kV adjustment per patient size (includes targeted exams where dose is matched to clinical indication); or iterative reconstruction. FINDINGS: Diffuse fatty infiltration of the liver with hepatomegaly. Calcified gallbladder. No evidence of serena cholecystic fluid. Calcified gallbladder has a chronic appearance. Small bilateral pleural effusions with bibasilar atelectasis. Cardiomegaly. Bibasilar atelectasis.Nor mal spleen. Normal GE junction. Adrenal glands are normal. Normal pancreas. Normal bilateral renal pa renchymal enhancement. Bilateral renal cysts. Largest left renal cyst measuring 7.0 cm. No hydroneph rosis. Normal sigmoid colon. No evidence of acute colitis or diverticulitis. No evidence of high-grade small or large bowel obstruction. Normal caliber abdominal aorta. Aortic calcification. No aneurysm. Wang catheter in place. Mild diffuse anasarca. A few shotty retroperitoneal lymph nodes. No pelvic or ing uinal lymphadenopathy. Incidental fat-containing right inguinal hernia. Ankylosis lower thoracic spin e. Wang catheter in place. Mild diffuse bladder wall thickening likely due to bladder outlet obstructio n or chronic cystitis. Enlarged prostate measuring 4.2 x 5.5 CM. Recommend correlation PSA. Nondepend ent air within the bladder likely due to Wang catheter placement. Recommend correlation for urinary tract infection. CT/CT abdomen pelvis w con* [id number] IMPRESSION: 1. Small bilateral pleural effusions with bibasilar atelectasis. 2. Gallbladder is contracted and calcified. This has a chronic appearance. No fluid in the gallbladder fossa. 3. Diffuse fatty infiltration of the liver 4. Wang catheter. Enlarged prostate. 5. Diffuse bladder wall thickening with nondependent air in the bladder. Recom mend correlation for urinary tract infection. Diffuse bladder wall thickening l ikely due to cystitis versus bladder outlet obstruction. 6. Diffuse body wall anasarca. 7. Bilateral renal cysts largest in the left measuring 7.0 cm
[2020-04-15] MEDS: iodixanol 320 mg/mL 100mL Btl IV (11:39)
[2020-04-15 11:45] LABS: Ammonia 16 umol/L (16-60); Lactic Sepsis W/Reflex 1.1 mmol/L (0.5-2.2)
[2020-04-15 11:55] LABS: Procalcitonin 1.23 ng/mL (0-0.5)
[2020-04-15 12:06] LABS: Alanine Aminotransferase 26 U/L (0-41); Albumin Level 2.6 g/dL (3.5-5.2); Alkaline Phosphatase 217 IU/L (40-130); Amylase 67 U/L (28-100); Anion Gap 14.9 (5-19); Aspartate Amino Transferase 33 U/L (0-40); Blood Urea Nitrogen 25 mg/dL (8-23); C Reactive Protein 44.2 mg/L (0.0-4.9); Calcium 7.6 mg/dL (8.5-10.5); Carbon Dioxide 19 mmol/L (22-29); Chloride 95 mmol/L (98-107); Globulin 3.2 g/dL (1.3-4.6); Glucose 114 mg/dL (65-115); Lipase 64 U/L (13-60); Osmolality Calculated 265 mOsm/kg (285-295); Potassium 3.9 mmol/L (3.5-5.1); Sodium 125 mmol/L (136-145); Total Bilirubin 1.5 mg/dL (0.15-1.2); Total Protein 5.8 g/dL (6.6-8.7)
[2020-04-15] MEDS: piperacillin-tazobactam 3.375 GM in sodium chloride 0.9% (plus) 50 ML IV ×2 (12:53→21:27)
--- NOTE | 2020-04-15 14:37 | P.PN_ITS ---
Subjective Subjective: Interval history: This morning patient was examined, he is alert oriented x2, does have episodes of confusion, but does answer most questions appropriately, tells me for the last few days he just has not been feeling well, poor appetite, weakness, nausea, no chest pain, no palpitations, no shortness of breath, no diarrhea, no sick contacts, no known exposure to COVID-19, no abdominal pain, no diarrhea, currently has no complaints, normotensive, saturating high 90s on room air, afebrile, pulse 61, regular, respiratory rate 15-18 I spoke to patient's , patient's tells me that he was in the ER a few days ago, for not feeling well, was found to have a distended bladder, they placed a Wang catheter, he then received a call that his blood cultures was positive, he was put on antibiotics, but since then he has been confused, weak, poor appetite Vitals/I&O/Wt Last Vital Signs Temp 98.3 F 04/15/20 12:00 Pulse 61 04/15/20 12:00 Resp 18 04/15/20 12:00 BP 109/65 04/15/20 12:00 Pulse Ox 92 04/15/20 12:00 04/14/20 04/15/20 04/15/20 22:59 06:59 14:59 Intake Total 140 / 140 Output Total 250 / 250 300 / 300 Balance -250 / -250 -160 / -160 Weight last 48 hrs Weight 81.647 kg Physical Exam Const: COMMON NORMALS: no acute distress and patient oriented x3 HENMT: COMMON NORMALS: normocephalic HEAD & SCALP: normocephalic Neck/C-Spine: COMMON NORMALS: no JVD Resp: COMMON NORMALS: normal respiratory effort, No retractions, No use of accessory muscles and clear to auscultation bilaterally AUSCULTATION: clear to auscultation bilaterally Cardio: COMMON NORMALS: no JVD, regular rate, regular rhythm, S1 normal heart sound present and S2 normal heart sound present RATE: regular rate RHYTHM: regular rhythm HEART SOUNDS: S1 normal heart sound present and S2 normal heart sound present GI: COMMON NORMALS: Normal to inspection, nondistended, normoactive bowel sounds present, Soft to palpation, non-tender, No hepatosplenomegaly present, no masses and no bruits INSPECTION: Yes abdominal distension PALPATION: Yes Soft to palpation and Yes No hepatosplenomegaly present Extremity: COMMON NORMALS: capillary refill normal, no clubbing, cyanosis or edema, no calf tenderness and no pedal edema Neuro: COMMON NORMALS: patient oriented x3 Psych: COMMON NORMALS: mental status grossly normal Data : 04/15/20 05:07 04/15/20 11:20 Micro: Microbiology 04/14/20 21:55 Blood Culture - Preliminary Blood SPECIMEN COLLECTED 04/14/20 22:15 Blood Culture - Preliminary Blood SPECIMEN COLLECTED A&P Assessment and plan (1) Sepsis: -Leukocytosis, hypotensive on admission, CRP 44.2, pro-Agusto 1.23 history of positive blood cultures Streptococcus viridans -Source of infection is concerning for cardiac, given his history of TAVR -However he does have elevated T bili, alk phos, CRP, pro-Agusto, I was concerned for possible acute ascending cholangitis, ultrasound of the liver showed acute and or chronic cholecystitis, with gallstones, CT scan of the abdomen did show any significant biliary ductal dilatation. I went over scans with Dr. Jones for radiology, looks more like chronic cholecystitis -Does have infiltrates bilateral lung bases -SARS Covid antigen negative PLAN: -Broaden antibiotic coverage to vancomycin and Zosyn -Follow repeat blood cultures, urine cultures -Ordered cardiac echocardiogram, will consider transesophageal echocardiogram -If complaints of abdominal pain, or elevation in T bili will consider HIDA scan -CT scan of the abdomen did show fatty infiltration of the liver, large liver, will do acute hep panel -Neurochecks, aspiration precautions, seizure precautions, if mentation changes suddenly will consider CT scan of the head to rule out septic emboli Status: Acute Qualifiers: Sepsis acute organ dysfunction status: unspecified Sepsis type: Streptococcus, other Qualified Code(s): A40.8 - Other streptococcal sepsis (2) Acute retention of urine: -CT scan does show enlarged prostate, likely production obstruction -Continue Wang, discharged with Wang and follow-up with urology Status: Acute (3) BPH (benign prostatic hyperplasia): Status: Acute (4) Atrial fibrillation: -Telemetry monitoring, Pradaxa Status: Acute (5) HTN (hypertension): -Monitor blood pressure Status: Acute (6) ASHD (arteriosclerotic heart disease): Status: Acute (7) S/P CABG (coronary artery bypass graft): Status: Acute (8) Ischemic cardiomyopathy: -Creatinine 1.3 Status: Acute (9) CKD (chronic kidney disease): Status: Acute (10) Carotid stenosis, bilateral: Status: Acute (11) Aortic stenosis: Status: Acute (12) Mitral regurgitation: Status: Acute (13) Pulmonary HTN: Status: Acute (14) S/P ICD (internal cardiac defibrillator) procedure: Status: Acute (15) S/P TAVR (transcatheter aortic valve replacement): Status: Acute (16) Septic encephalopathy: -Secondary to bacteremia Status: Acute (17) Streptococcus viridans infection: Status: Acute (18) Hyponatremia: -Likely hypovolemic hyponatremia, given history of heart failure, gentle IV hydration 50 cc an hour Status: Acute (19) Anemia: -Hemoglobin is down to 9.1, MCV of 82.1, no hemodynamic compromise Iron studies, ferritin, Hemoccult stool, Protonix- Status: Acute Additional A&P Information EMILY due to acute urinary tension secondary to BPH Wang catheter draining cloudy urine, follows up with Dr. Young now Seems to be improving, 1.4 today, 2 weeks ago 1.5 Hold lisinopril Hypothyroidism: Continue levothyroxine, tsh3.3 Reduced ejection fraction heart failure no acute exacerbation, I will hold Lasix for now Can resume tomorrow, mild ascites with bilateral pleural effusion evident on abdominal CT scan TAVR status post pacemaker placement with upgradation to defibrillator No acute decompensation, chest pain-free CODE STATUS: Full code Cardiac diet DVT prophylaxis not needed currently on Pradaxa, slight drop in hemoglobin, monitor for now Physical therapy evaluation Attestations Medical Necessity Statement*: Patient requires hospitalization for St reptococcus viridans bacteremia, septic encephalopathy, anemia Coding Level of Care 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[facility] 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 Diagnoses Sepsis A40.8 Sepsis acute organ dysfunction status: unspecified Sepsis type: Streptococcus, other Acute retention of urine R33.8 BPH (benign prostatic hyperplasia) N40.0 Atrial fibrillation I48.91 HTN (hypertension) I10 ASHD (arteriosclerotic heart disease) I25.10 S/P CABG (coronary artery bypass graft) Z95.1 Ischemic cardiomyopathy I25.5 CKD (chronic kidney disease) N18.9 Carotid stenosis, bilateral I65.23 Aortic stenosis I35.0 Mitral regurgitation I34.0 Pulmonary HTN I27.20 S/P ICD (internal cardiac defibrillator) procedure Z95.810 S/P TAVR (transcatheter aortic valve replacement) Z95.2 Septic encephalopathy G93.41 Streptococcus viridans infection A49.1 Hyponatremia E87.1 Anemia D64.9
[2020-04-15 15:50] LABS: Potassium, Radom Urine 27 mmol/L; Urine Creatinine 68 mg/dL (39-259); Urine Random Chloride 24 mmol/L
[2020-04-15 15:58] LABS: Ferritin 222 ng/mL (30-400); Iron 35 ug/dL (59-158); Total Iron Binding Capacity 166 mcg/dl; Unsaturated Iron Binding 131 ug/dL (112-347)
[2020-04-15 16:01] LABS: Eosinophil Urine No Eosinophils Seen; Urine Eosinophil Count 0 (0-0); Urine Random Sodium 19 mmol/L
[2020-04-15] MEDS: sodium chloride 0.9% 1,000 ML 50 ML IV (17:00)
[2020-04-15] MEDS: vancomycin 1,000 MG in sodium chloride 0.9% 250 ML 250 MG IV (17:01)
[2020-04-15] MEDS: pantoprazole DR 40 mg Tablet PO (18:14)
[2020-04-15 23:55] LABS: Hepatitis A Antibody IgM Non-Reactive (Nonreactive); Hepatitis B Core IgM Non-Reactive (Nonreactive); Hepatitis B Surface Antigen Non-Reactive (Nonreactive); Hepatitis C Virus Antibody Non-Reactive (Nonreactive)
[2020-04-16] VITALS (9 sets, daily range): BP systolic 115–135; BP diastolic 66–89; PULSE 58–85; RESP 16–20; TEMP 36.1–36.9; O2SAT 93–99
[2020-04-16] MEDS: piperacillin-tazobactam 3.375 GM in sodium chloride 0.9% (plus) 50 ML IV ×3 (05:55→21:13)
[2020-04-16 06:05] LABS: Basophils # 0.1 10^3/uL (0.0-0.1); Basophils % 0.8 %; Eosinophils # 0.2 10^3/uL (0.0-0.8); Eosinophils % 1.3 %; Hematocrit 33.6 % (42.0-52.0); Hemoglobin 10.7 g/dL (11.7-16.6); Lymphocytes # 1.1 10^3/uL (0.8-4.8); Lymphocytes % 9.2 %; Mean Corpuscular HGB Conc 31.8 g/dL (30.0-36.0); Mean Corpuscular Hemoglobin 26.2 pg (28.0-34.0); Mean Corpuscular Volume 82.2 fL (80-94); Mean Platelet Volume 13.2 fL (7.4-10.4); Monocytes # 0.8 10^3/uL (0.2-0.9); Monocytes % 6.4 %; Neutrophils # 9.77 10^3/uL (1.8-7.7); Neutrophils % 81.5 %; Nucleated Red Blood Cells % 0 %; Platelet Count 187 10^3/cmm (130-400); Red Blood Count 4.09 10^6/uL (4.1-5.3); Red Cell Distribution Width 17.6 % (12.1-15.1)
[2020-04-16 06:22] LABS: Lactic Sepsis W/Reflex 1.3 mmol/L (0.5-2.2)
[2020-04-16 06:23] LABS: Alanine Aminotransferase 27 U/L (0-41); Albumin Level 2.8 g/dL (3.5-5.2); Alkaline Phosphatase 220 IU/L (40-130); Anion Gap 14.6 (5-19); Aspartate Amino Transferase 31 U/L (0-40); Blood Urea Nitrogen 20 mg/dL (8-23); Carbon Dioxide 18 mmol/L (22-29); Chloride 98 mmol/L (98-107); Globulin 3.4 g/dL (1.3-4.6); Glucose 86 mg/dL (65-115); Magnesium 1.9 mg/dL (1.7-2.3); Osmolality Calculated 266 mOsm/kg (285-295); Phosphorus 2.4 mg/dL (2.5-4.5); Potassium 3.6 mmol/L (3.5-5.1); Sodium 127 mmol/L (136-145); Total Bilirubin 1.7 mg/dL (0.15-1.2); Total Protein 6.2 g/dL (6.6-8.7)
[2020-04-16 07:26] LABS: INR 1.93 (0.8-1.2)
[2020-04-16 07:59] LABS: C Reactive Protein 36.4 mg/L (0.0-4.9)
[2020-04-16] MEDS: atorvastatin 40 mg Tablet PO (08:41)
[2020-04-16] MEDS: clopidogrel 75 mg Tablet PO (08:41)
[2020-04-16] MEDS: pantoprazole DR 40 mg Tablet PO ×2 (08:42→18:39)
[2020-04-16] MEDS: levothyroxine 150 mcg Tablet PO (08:42)
[2020-04-16 08:49] LABS: NT Pro B Type Natriuretic Pept 8696 pg/mL (0-450); Procalcitonin 1.05 ng/mL (0-0.5)
[2020-04-16] MEDS: vancomycin 1,000 MG in sodium chloride 0.9% 250 ML 250 MG IV (09:29)
--- NOTE | 2020-04-16 09:50 | CTR_ITS ---
PROCEDURE INFORMATION: Exam: CT Head Without Contrast Exam date and time: 04/16/2020 10:19 AM Age: 84 years old Clinical indication: Altered mental status/memory loss; Additional info: AMS, R/O embolic stroke fom possible endocarditis TECHNIQUE: Imaging protocol: Computed tomography of the head without contrast. Radiation optimization: All CT scans at this facility use at least one of these dose optimization techniques: automated exposure control; mA and/or kV adjustment per patient size (includes targeted exams where dose is matched to clinical indication); or iterative reconstruction. COMPARISON: CT head wo con* [id number] 04/06/2020 10:15 AM RADIATION DOSE METRICS: Total DLP (mGy-cm): 828.89 FINDINGS: Brain: There is decreased white matter density indicating chronic small vessel white matter ischemia. No intracranial hemorrhage, edema or other acute abnormalities are seen in the brain. 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 There is no mass effect or midline shift. Cerebral ventricles: There is generalized prominence of the ventricles and sulci indicating diffuse chronic atrophy. Bones/joints: Unremarkable. No acute fracture. Paranasal sinuses: Visualized sinuses are unremarkable. No fluid levels. Mastoid air cells: Visualized mastoid air cells are well aerated. Soft tissues: Unremarkable. CT/CT head wo con* [id number] IMPRESSION: Chronic atrophy with chronic ischemic changes. No acute intracranial abnormality. Radiation Dose CTDIVOL = (mGy): DLP = 828.89 (mGy-cm)
--- NOTE | 2020-04-16 10:20 | PC.NURSE ---
pt off floor to CT
--- NOTE | 2020-04-16 10:30 | PC.NURSE ---
pt back on unit from CT
--- NOTE | 2020-04-16 10:50 | NMR_ITS ---
PROCEDURE INFORMATION: Exam: NM Hepatobiliary Including Gallbladder When Present Exam date and time: 04/16/2020 4:14 PM Age: 84 years old Clinical indication: Abnormal findings; Abnormal radiologic findings, biliary tract; Prior surgery; Surgery date: 6+ months; Surgery type: Hernia; Patient HX: Abnormal US of abdomen; Additional info: Hida scan TECHNIQUE: Imaging protocol: Hepatobiliary system imaging including the gallbladder when present. Projections: Frontal abdomen Radiopharmaceutical: 8.2 mCI Tc-99m Mebrofenin (Choletec), IV. Time of imaging post radiopharmaceutical administration: 60 minutes following radiopharmaceutical. COMPARISON: CT abdomen pelvis w con* [id number] 04/15/2020 11:32 AM Ultrasound dated 04/15/2020 FINDINGS: Liver: Unremarkable. Homogeneous radiotracer uptake. Gallbladder: No gallbladder uptake is identified at 60 minutes. Delayed imaging at 90 minutes and 120 minutes also demonstrates no gallbladder uptake. Bile ducts: Unremarkable. Clearly visualized. Normal hepatic to biliary transit time. Stomach and bowel: Unremarkable. No evidence of significant enterogastric reflux. Radiotracer activity is seen in the small bowel. Normal biliary to bowel transit time. VA/NM hepatobiliary wo phar [id number] IMPRESSION: Findings are suspicious for cystic duct obstruction and cholecystitis.Clinical correlation is advised.
[2020-04-16] MEDS: sodium chloride 0.9% 1,000 ML 50 ML IV (10:51)
--- NOTE | 2020-04-16 11:24 | PC.NURSE ---
spoke with Britt in [facility] about completing a Hida Scan. Britt stated that pt needed to eat or drink an Ensure Plus and that she would be ready for the Hida Scan in approximately 4 hours. notified Britt that pt drank a full Ensure Plus at 1124 and Britt stated, Okay.
--- NOTE | 2020-04-16 13:52 | P.PN_ITS ---
Subjective Subjective: Interval history: Overnight patient had episodes of agitation, requiring a one-on-one sitter, this morning patient is alert oriented x2, he tells me that bushes are present, gets a year right, does have intermittent episodes of confusion, but answers most questions appropriately, denies any fevers, denies any chills, no nausea, no vomiting, no chest pain, no shortness of breath, he knows that he is in the hospital for infection, he tells me that they are worried about my heart, he has no other concerns, no other complaints Vitals/I&O/Wt Last Vital Signs Temp 97.3 F L 04/16/20 12:00 Pulse 64 04/16/20 12:00 Resp 18 04/16/20 12:00 BP 126/72 04/16/20 12:00 Pulse Ox 98 04/16/20 12:00 04/15/20 04/16/20 04/16/20 22:59 06:59 14:59 Intake Total 600 / 740 430 / 1170 1429.5 / 1429.5 Output Total 1300 / 1600 450 / 450 Balance 600 / 440 -870 / -430 979.5 / 979.5 Weight last 48 hrs Weight 81.647 kg Physical Exam Const: COMMON NORMALS: no acute distress and patient oriented x3 ORIENTATION/CONSCIOUSNESS: Yes awake, Yes oriented to person, Yes oriented to place and Yes confused; not oriented to time HENMT: COMMON NORMALS: normocephalic HEAD & SCALP: normocephalic Neck/C-Spine: COMMON NORMALS: no JVD Resp: COMMON NORMALS: normal respiratory effort, No retractions, No use of accessory muscles and clear to auscultation bilaterally AUSCULTATION: clear to auscultation bilaterally Cardio: COMMON NORMALS: no JVD, regular rate, regular rhythm, S1 normal heart sound present and S2 normal heart sound present RATE: regular rate RHYTHM: regular rhythm HEART SOUNDS: S1 normal heart sound present and S2 normal heart sound present GI: COMMON NORMALS: Normal to inspection, nondistended, normoactive bowel sounds present, Soft to palpation, non-tender, no masses and no bruits INSPECTION: Yes abdominal distension AUSCULTATION: Yes normoactive bowel sounds PALPATION: Yes Soft to palpation Extremity: COMMON NORMALS: capillary refill normal, no clubbing, cyanosis or edema, no calf tenderness and no pedal edema Neuro: COMMON NORMALS: patient oriented x3 SENSORIUM/ORIENTATION: Yes oriented to person, Yes oriented to place and No oriented to time Psych: COMMON NORMALS: mental status grossly normal Urinary Catheter Management^: Wang: Cath Placed During This Visit: no Reason for Continuing Indwelling Catheter: Acute Urinary Retention or Obstruction Data : 04/16/20 05:43 04/16/20 05:43 Micro: Microbiology 04/14/20 22:03 Urine Culture - Preliminary Urine,Clean Catch 04/14/20 21:55 Blood Culture - Preliminary Blood NEGATIVE TO DATE 04/14/20 22:15 Blood Culture - Preliminary Blood NEGATIVE TO DATE A&P Assessment and plan (1) Sepsis: -Leukocytosis, hypotensive on admission, CRP 44.2, pro-Agusto 1.23 history of positive blood cultures Streptococcus viridans -Remains afebrile, normotensive, does have intermittent episodes of confusion -Source of infection is concerning for cardiac, given his history of TAVR -However he does have elevated T bili, alk phos, CRP, pro-Agusto, I was concerned for possible acute ascending cholangitis, ultrasound of the liver showed acute and or chronic cholecystitis, with gallstones, CT scan of the abdomen did show any significant biliary ductal dilatation. I went over scans with Dr. Jones for radiology, looks more like chronic cholecystitis. T bili is 1.7 this morning, AST ALT within normal muscular alk phos 220, will do a HIDA scan -Does have infiltrates bilateral lung bases -SARS Covid antigen negative PLAN: -Broaden antibiotic coverage to vancomycin and Zosyn -Follow repeat blood cultures, urine cultures but so far negative -Echocardiogram was a difficult study, but no gross evidence of valvular vegetations, but if he were to have repeat bacteremia, would likely require transesophageal echocardiogram -HIDA scan ordered -Acute hepatitis panel negative -CT of the head was negative for intracranial hemorrhage, acute stroke, septic emboli -Neurochecks, aspiration precautions, seizure precautions, -Dysphagia diet Status: Acute Qualifiers: Sepsis acute organ dysfunction status: unspecified Sepsis type: Streptococcus, other Qualified Code(s): A40.8 - Other streptococcal sepsis (2) Acute retention of urine: -CT scan does show enlarged prostate, likely production obstruction -Continue Wang, discharged with Wang and follow-up with urology Status: Acute (3) BPH (benign prostatic hyperplasia): Status: Acute (4) Atrial fibrillation: -Telemetry monitoring, Pradaxa Status: Acute (5) HTN (hypertension): -Monitor blood pressure Status: Acute (6) ASHD (arteriosclerotic heart disease): Status: Acute (7) S/P CABG (coronary artery bypass graft): Status: Acute (8) Ischemic cardiomyopathy: -Creatinine 1.3 Status: Acute (9) CKD (chronic kidney disease): Status: Acute (10) Carotid stenosis, bilateral: Status: Acute (11) Aortic stenosis: Status: Acute (12) Mitral regurgitation: Status: Acute (13) Pulmonary HTN: Status: Acute (14) S/P ICD (internal cardiac defibrillator) procedure: Status: Acute (15) S/P TAVR (transcatheter aortic valve replacement): Status: Acute (16) Septic encephalopathy: -Secondary to bacteremia Status: Acute (17) Streptococcus viridans infection: Status: Acute (18) Hyponatremia: -Likely hypovolemic hyponatremia, given history of heart failure, gentle IV hydration 50 cc an hour -Serum sodium improved to 127 -Fractional excretion of sodium 0.3, indicating prerenal -Monitor respiratory status closely, monitor oxygen requirements fairly closely, if any concerns of fluid overload will stop gentle IV hydration Status: Acute (19) Anemia: -Hemoglobin is down to 9.1, MCV of 82.1, no hemodynamic compromise Iron studies, ferritin, Hemoccult stool, Protonix- Status: Acute Additional A&P Information EMILY due to acute urinary tension secondary to BPH Wang catheter draining cloudy urine, follows up with Dr. Young now Seems to be improving, 1.3 today, 2 weeks ago 1.5 Hold lisinopril Hypothyroidism: Continue levothyroxine, tsh 3.3 Reduced ejection fraction heart failure no acute exacerbation, I will hold Lasix for now Can resume tomorrow, mild ascites with bilateral pleural effusion evident on abdominal CT scan TAVR status post pacemaker placement with upgradation to defibrillator No acute decompensation, chest pain-free CODE STATUS: Full code Cardiac diet DVT prophylaxis not needed currently on Pradaxa, slight drop in hemoglobin, monitor for now Physical therapy evaluation Attestations Medical Necessity Statement*: Patient requires hospitalization due to septic encephalopathy secondary to bacteremia, Coding Level of Care Code 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 [facility] Fwd Diagnoses Sepsis A40.8 Sepsis acute organ dysfunction status: unspecified Sepsis type: Streptococcus, other Acute retention of urine R33.8 BPH (benign prostatic hyperplasia) N40.0 Atrial fibrillation I48.91 HTN (hypertension) I10 ASHD (arteriosclerotic heart disease) I25.10 S/P CABG (coronary artery bypass graft) Z95.1 Ischemic cardiomyopathy I25.5 CKD (chronic kidney disease) N18.9 Carotid stenosis, bilateral I65.23 Aortic stenosis I35.0 Mitral regurgitation I34.0 Pulmonary HTN I27.20 S/P ICD (internal cardiac defibrillator) procedure Z95.810 S/P TAVR (transcatheter aortic valve replacement) Z95.2 Septic encephalopathy G93.41 Streptococcus viridans infection A49.1 Hyponatremia E87.1 Anemia D64.9
--- NOTE | 2020-04-16 16:22 | PC.NURSE ---
pt off floor to Nuc Med for Hida Scan
--- NOTE | 2020-04-16 18:23 | PC.NURSE ---
END OF SHIFT SUMMARY pt is pleasantly disorganized, but can state his name and . pt attempted to get out of bed numerous times this am as well as pulled on his lacy, so order for 1:1 was placed. pt has done better with 1:1 sitter. pt able to swallow morning PO meds well. pt able to rest well today, also. pt is currently off the unit for a Hida Scan.
--- NOTE | 2020-04-16 18:39 | PC.NURSE ---
pt back on unit from Hida Scan in Nuc Med
[2020-04-17] VITALS (7 sets, daily range): BP systolic 107–151; BP diastolic 66–78; PULSE 60–108; RESP 15–18; TEMP 36.4–36.8; O2SAT 93–99
[2020-04-17 03:15] LABS: Basophils # 0.1 10^3/uL (0.0-0.1); Basophils % 0.7 %; Eosinophils # 0.2 10^3/uL (0.0-0.8); Eosinophils % 1.7 %; Hematocrit 33.2 % (42.0-52.0); Hemoglobin 10.4 g/dL (11.7-16.6); Lymphocytes # 1.4 10^3/uL (0.8-4.8); Lymphocytes % 11.9 %; Mean Corpuscular HGB Conc 31.3 g/dL (30.0-36.0); Mean Corpuscular Hemoglobin 25.7 pg (28.0-34.0); Mean Corpuscular Volume 82.2 fL (80-94); Mean Platelet Volume 12.5 fL (7.4-10.4); Monocytes # 0.8 10^3/uL (0.2-0.9); Monocytes % 6.5 %; Neutrophils # 9.26 10^3/uL (1.8-7.7); Neutrophils % 78.4 %; Nucleated Red Blood Cells % 0 %; Platelet Count 194 10^3/cmm (130-400); Red Blood Count 4.04 10^6/uL (4.1-5.3); Red Cell Distribution Width 17.7 % (12.1-15.1); White Blood Count 11.8 10^3/uL (4.0-10.0)
[2020-04-17 03:25] LABS: INR 1.78 (0.8-1.2)
[2020-04-17 03:36] LABS: Alanine Aminotransferase 27 U/L (0-41); Albumin Level 2.8 g/dL (3.5-5.2); Alkaline Phosphatase 222 IU/L (40-130); Anion Gap 12.9 (5-19); Aspartate Amino Transferase 30 U/L (0-40); Blood Urea Nitrogen 18 mg/dL (8-23); Calcium 8.1 mg/dL (8.5-10.5); Carbon Dioxide 21 mmol/L (22-29); Chloride 102 mmol/L (98-107); Glucose 93 mg/dL (65-115); Osmolality Calculated 276 mOsm/kg (285-295); Phosphorus 2.4 mg/dL (2.5-4.5); Potassium 3.9 mmol/L (3.5-5.1); Sodium 132 mmol/L (136-145); Total Bilirubin 1.7 mg/dL (0.15-1.2); Total Protein 5.8 g/dL (6.6-8.7)
[2020-04-17 03:40] LABS: Lactic Sepsis W/Reflex 1.4 mmol/L (0.5-2.2); Vancomycin Trough 14.1 ug/mL (10-15)
[2020-04-17] MEDS: vancomycin 1,000 MG in sodium chloride 0.9% 250 ML 250 MG IV ×2 (04:57→20:42)
[2020-04-17 05:31] LABS: NT Pro B Type Natriuretic Pept 8928 pg/mL (0-450); Procalcitonin 0.67 ng/mL (0-0.5)
[2020-04-17] MEDS: piperacillin-tazobactam 3.375 GM in sodium chloride 0.9% (plus) 50 ML IV ×3 (06:49→22:46)
--- NOTE | 2020-04-17 08:00 | PC.NURSE ---
pt is A/O to name, , the facility he is in, as well as the month but pt believes the year is 1920. reoriented pt and stated that the year is 2019.
[2020-04-17] MEDS: pantoprazole DR 40 mg Tablet PO ×2 (08:08→18:07)
[2020-04-17] MEDS: clopidogrel 75 mg Tablet PO (08:08)
[2020-04-17] MEDS: atorvastatin 40 mg Tablet PO (08:08)
[2020-04-17] MEDS: levothyroxine 150 mcg Tablet PO (08:08)
--- NOTE | 2020-04-17 09:30 | PM.CONSULT ---
Providers/Reason For Consult Consulting Physican/Specialty*: Miles Carnes MD Reason for Consult*: Concern for cholecystitis Attending Physician: Jj Burnett MD Primary Care Provider: Jacquie Coto NP History of Present Illness History of Present Illness Chief Complaint: I do want an operation History of present illness: Mr.David Roshan Saavedra is a pleasant 84 year old male appears clinically to have dementia, history of coronary artery disease status post coronary artery bypass graft, pacemaker placement for sick sinus syndrome, atrial fibrillation, aortic stenosis and status post TAVR, patient presented initially with generalized weakness and had history of congestion of his sinuses, rhinorrhea. On 06 April 2020 presented to the ER of [facility] and CT scan showe: 04/06/2020 CT scan of the abdomen and pelvis IMPRESSION: 1. Markedly distended urinary bladder. May be due to bladder outlet obstruction as the prostate gland is enlarged. 2. Moderate diffuse perinephric stranding with no hydronephrosis. 3. Small amount of mesenteric edema. 4. Small amount of ascites. 5. Partially calcified gallbladder. 6. Cardiac enlargement with small bilateral pleural effusions. Because of the markedly distended bladder, Wang catheter placed for urinary tension, blood culture grew Streptococcus viridans pansensitive, Augmentin was called for him. Yet what appears to be that patient spouse noticed that he is confused later on and has been having more napping throughout the day presented to the emergency department and further work-up was done and showed: 04/15/2020 ultrasound of the liver and gallbladder Gallbladder and right upper quadrant ultrasound, 04/15/2020 Clinical Data: RUQ us for acute cholecystitis Comparison: Gallbladder ultrasound, 12/13/2017. Findings: The gallbladder shows acoustic shadowing from dense stones.. The wall measures 0.4 cm with no pericholecystic fluid. The common bile duct is 0.5 cm and there are no intrahepatic ductal abnormalities. Liver shows no cysts, masses or dilated intrahepatic ducts. The liver measured 16.34 cm in greatest diameter. The pancreas is obscured by overlying bowel gas but no cyst, pseudocyst, or evidence of pancreatitis is noted. Right kidney measures 12.9 cm and there were several cortical cysts, the largest of which measuring 1.63 x 2.12 x 2.48 cm. The aorta and inferior vena cava show dilatation of the IVC to 2.67 cm. Impression: 1. Numerous gallstones. 2. Dilated gallbladder wall which can indicate acute and or chronic cholecystitis. 3. Several right renal cortical cysts. Repeat CT scan 04/15/2020 of the abdomen and pelvis: 1. Small bilateral pleural effusions with bibasilar atelectasis. 2. Gallbladder is contracted and calcified. This has a chronic appearance. No fluid in the gallbladder fossa. 3. Diffuse fatty infiltration of the liver 4. Wang catheter. Enlarged prostate. 5. Diffuse bladder wall thickening with nondependent air in the bladder. Recommend correlation for urinary tract infection. Diffuse bladder wall thickening likely due to cystitis versus bladder outlet obstruction. 6. Diffuse body wall anasarca. 7. Bilateral renal cysts largest in the left measuring 7.0 cm HIDA scan 04/16/2020 FINDINGS: Liver: Unremarkable. Homogeneous radiotracer uptake. Gallbladder: No gallbladder uptake is identified at 60 minutes. Delayed imaging at 90 minutes and 120 minutes also demonstrates no gallbladder uptake. Bile ducts: Unremarkable. Clearly visualized. Normal hepatic to biliary transit time. Stomach and bowel: Unremarkable. No evidence of significant enterogastric reflux. Radiotracer activity is seen in the small bowel. Normal biliary to bowel transit time. PA/NM hepatobiliary wo phar [id number] IMPRESSION: Findings are suspicious for cystic duct obstruction and cholecystitis.Clinical correlation is advised. General surgery was consulted because of concern of potential cholecystitis of the gallbladder, I did talk with the patient in the presence of his nursing staff and he denied any fatty dyspepsia before and his clinical examination was completely benign. Repeat ultrasound of the gallbladder today showed: FINDINGS: Pleural space: There is a right pleural effusion. Liver: The liver is homogeneous in echogenicity. The liver measures 15.1 cm in length. Gallbladder: There is cholelithiasis with 1 gallstone measuring 1.3 cm in size. There is progressive gallbladder wall thickening now measuring 5.7 mm compared to 4 mm on the prior exam. There is a negative sonographic Cooper's sign. Common bile duct: The common bile duct is within normal limits at 4.4 mm. No mass or duct dilatation. Pancreas: Visualized pancreas is unremarkable. Right kidney: The right kidney measures 11.2 cm in length. The right kidney is unremarkable. No right stones, hydronephrosis or perinephric fluid. Left kidney: There is a simple cyst protruding from the lower pole left kidney measuring 7.9 x 6.9 cm in size. The left kidney measures 10.9 cm in length. The left kidney is unremarkable without any stones or hydronephrosis. The echotexture of the left kidney is appropriate. Spleen: The spleen is homogeneous in echogenicity measuring 12.6 cm in length. Aorta: The aorta is unremarkable measuring 1.4 cm. Inferior vena cava: Normal. US/US abdomen complete* [id number] IMPRESSION: 1. Cholelithiasis. Increasing gallbladder wall thickening compatible with cholecystitis. No duct dilatation. 2. Right pleural effusion. Review of Systems General: Reports: 10 or more systems reviewed and unremarkable except in HPI and below Meds/Allergies Home Medications and Allergies Home Medications Medication Instructions Recorded Confirmed Last Taken Type amlodipine 5 mg tablet 2.5 mg PO BID tab 09/22/19 04/15/20 Unknown History atorvastatin 40 mg tablet 40 mg PO DAILY 09/22/19 04/15/20 Unknown History carvedilol 25 mg tablet 25 mg PO BID 09/22/19 04/15/20 Unknown History cetirizine 10 mg tablet 10 mg PO DAILY PRN tab 09/22/19 04/15/20 Unknown History cholecalciferol (vitamin D3) 10 400 unit PO DAILY 09/22/19 04/15/20 Unknown History mcg (400 unit) capsule difluprednate 0.05 % eye drops 1 drop OPHTHALMIC (EYE) BID 09/22/19 04/15/20 Unknown History furosemide 40 mg tablet 40 mg PO BID 09/22/19 04/15/20 Unknown History hydrocodone 5 mg-acetaminophen 325 1 tab PO Q8H PRN 09/22/19 04/15/20 Unknown History mg tablet lisinopril 20 mg tablet 20 mg PO BID 09/22/19 04/15/20 Unknown History lycopene 10 mg capsule 10 mg PO DAILY 09/22/19 04/15/20 Unknown History nitroglycerin 0.4 mg sublingual 0.4 mg SUBLINGUAL Q5M PRN 09/22/19 04/15/20 Unknown History tablet omega-3 fatty acids 1,000 mg 1,000 mg PO DAILY 09/22/19 04/15/20 Unknown History capsule potassium chloride 10 mEq 10 meq PO DAILY 09/22/19 04/15/20 Unknown History tablet,extended release(part/cryst) triamcinolone acetonide 55 mcg INTRANASAL DAILY 09/22/19 04/13/20 Unknown History mcg/actuation nasal spray,aerosol clopidogrel 75 mg tablet 75 mg PO DAILY #90 tab 12/24/19 04/15/20 Unknown Rx dabigatran etexilate 75 mg capsule 75 mg PO BID #180 cap 12/24/19 04/15/20 Unknown Rx levothyroxine 137 mcg capsule 150 mcg PO DAILY cap 12/24/19 04/15/20 Unknown History Allergies Allergy/AdvReac Type Severity Reaction Status Date / Time fenofibrate Allergy Unknown Unknown Verified 04/17/20 09:38 levofloxacin Allergy Unknown Unknown Verified 04/17/20 09:38 niacin Allergy Unknown Unknown Verified 04/17/20 09:38 Current Medications Current Medications Generic Name Dose Route Start Last Admin Trade Name Freq PRN Reason Stop Dose Admin Atorvastatin Calcium 40 mg 04/15/20 09:00 04/17/20 08:08 Lipitor PO 40 mg DAILY DEONNA Administration Clopidogrel Bisulfate 75 mg 04/15/20 09:00 04/17/20 08:08 Plavix PO 75 mg DAILY DEONNA Administration Dabigatran 75 mg 04/15/20 09:00 04/17/20 08:08 Pradaxa PO 75 mg BID DEONNA Administration Piperacillin Sod/Tazobactam 50 mls @ 12.5 mls/hr 04/15/20 11:30 04/17/20 06:49 Sod 3.375 gm/ Sodium Chloride IV 12.5 mls/hr Q8H DEONNA Administration Protocol As Directed Sodium Chloride 1,000 mls @ 50 mls/hr 04/15/20 14:00 04/17/20 07:15 Sodium Chloride 0.9% IV Infused .Q20H DEONNA Infusion Vancomycin HCl 1,000 mg/ 250 mls @ 250 mls/hr 04/15/20 15:30 04/17/20 07:15 Sodium Chloride IV Infused Q18H DEONNA Infusion Protocol As Directed Levothyroxine Sodium 150 mcg 04/15/20 09:00 04/17/20 08:08 Synthroid PO 150 mcg DAILY DEONNA Administration Pantoprazole Sodium 40 mg 04/15/20 18:00 04/17/20 08:08 Protonix PO 40 mg BID DEONNA Administration PFSH Acute PFSH: Medical History Anticoagulation adequate with anticoagulant therapy Direct thrombin inhibitor Pradaxa Aortic stenosis ASHD (arteriosclerotic heart disease) Atrial fibrillation Carotid stenosis, bilateral CKD (chronic kidney disease) Dyslipidemia Gross hematuria HTN (hypertension) Hypothyroidism Ischemic cardiomyopathy Mitral regurgitation Pulmonary HTN SSS (sick sinus syndrome) Surgical History S/P CABG (coronary artery bypass graft) S/P cataract extraction S/P hernia repair S/P ICD (internal cardiac defibrillator) procedure S/P TAVR (transcatheter aortic valve replacement) Family History Mother CAD (coronary artery disease) Father Stroke Social History Smoking and tobacco status: never smoked Household members: spouse Marital status: Vitals/I&O/Wt Last Vital Signs Temp 98.2 F 04/17/20 07:42 Pulse 78 04/17/20 07:42 Resp 18 04/17/20 07:42 BP 151/77 04/17/20 07:42 Pulse Ox 99 04/17/20 07:42 04/16/20 04/17/20 04/17/20 22:59 06:59 14:59 Intake Total 50 / 1479.5 50 / 1529.5 1250 / 1250 Output Total 850 / 1300 150 / 150 Balance 50 / 1029.5 -800 / 229.5 1100 / 1100 Physical Exam Narrative: EXAM NARRATIVE: Patient is conscious alert yet somehow confused likely to underlying dementia BMI 24 Head and neck examination PERRLA no masses no cervical lymphadenopathy no jaundice Cardiac examination audible S1-S2 no murmurs no gallops no arrhythmias Chest is clear bilateral,abscence of Rhonchi or wheezes,no surgical emphysema Abdomen nontender nondistended soft no organomegaly guarding or rigidity/no signs of peritonitis Wang catheter in place with debris's and sediment appreciated in the urinary bag Urinary Catheter Management^: Wang: Cath Placed During This Visit: no Reason for Continuing Indwelling Catheter: Acute Urinary Retention or Obstruction Data Micro: Micro: Microbiology 04/14/20 22:03 Urine Culture - Pr eliminary Urine,Clean Catch A&P Assessment and plan (1) Cholelithiasis: After limited history taking physical examination and reviewing the chart and personal interpretation of the CT scan images and the ultrasound I do believe that patient does not have currently acute cholecystitis rather incidental finding of cholelithiasis. Yet the presence of thickness of the gallbladder wall has been increased from the previous study likely due to generalized edema looking into the previous CT scans it showed that the patient has lot of third spacing and based on my clinical examination there are no tenderness and negative Cooper sign. I do not believe that the patient will require surgical intervention at this point. Yet patient can be followed upon as an outpatient for further evaluation. I do believe more that his current potential UTI and I did notice on the scan that was done on the there was perinephric stranding which would be concerning for me for pyelonephritis. Which likely would explain the patient's clinical overall condition. Yet on today's ultrasound there is no evidence of such changes around the right kidney. Improve nutrition status and calorie count with focus on high-protein content due to deconditioning At this point I would rather follow on the patient clinically with focus on gentle hydration and continue antimicrobial therapy Will follow on the ultrasound repeat the patient because of his pacemaker would not be able to get an MRCP. If continues to be a concern about the gallbladder will be the source aspiration of gallbladder content per IR and sending gallbladder fluid for cultures and sensitivities would be an avenue yet the patient is on Plavix and Pradaxa which make him at higher risk of bleeding for any invasive procedure. I would recommend highly to send for COVID-19 PCR as the patient may have an underlying atypical symptomatology associated with COVID-19 infection At 15:15 I did discuss the overall clinical impression with Ms. Fiorella Saavedra patient's spouse on [phone] and I did discuss Mr Saavedra's current status with regard to the gallbladder as she confirmed to me that her never had issue with fatty dyspepsia but it was well known that he had history of gallbladder stones from before. But over the past month or so he was not having much of an appetite. I did explain for Ms. Saavedra that there are no signs or indications at this point for gallbladder surgery and even if the patient would to have gallbladder surgery we have to stop the Pradaxa for a week and the Plavix for 5 days before any surgical intervention.My recommendation at this point to continue conservative measures and have the patient follow-up as an outpatient at my office in 2 weeks Ms. Saavedra verbalized her understanding and I did have Ms. Narayan patient's nurse to confirm the discussion over the phone with her and all her questions and concerns have been addressed to her satisfaction.. Thank you for consulting general surgery to participate taking care Status: Acute Consult Attestations Medical Necessity Statement: Patient requiring inpatient hospitalization for IV antimicrobial therapy and repeated physical examination Time Spent in Patient Care: (>than 50% of time spent in counselling and/or direct pt care on unit). Coding Level of Care Code Acute Proj Engineer for Rod Burnett Diagnoses Cholelithiasis K80.20
[2020-04-17] MEDS: sodium chloride 0.9% 1,000 ML 50 ML IV (10:55)
--- NOTE | 2020-04-17 11:40 | P.PN_ITS ---
Subjective Subjective: Interval history: This morning patient was examined, he is alert, oriented to person, to place, notes his March, but tells me Buzz is a president, and it is 2021, he does follow all commands, answers some questions appropriate, but is confused, he has no particular complaints, just hungry as he has not eaten in 48 hours, no fever complaints, no chest pain complaints, no difficulty breathing, is on room air, afebrile, no abdominal complaints, belly is distended according to him, but I did not that no complaints, his last bowel movement was yesterday Vitals/I&O/Wt Last Vital Signs Temp 98.2 F 04/17/20 07:42 Pulse 80 04/17/20 09:53 Resp 18 04/17/20 09:53 BP 151/77 04/17/20 07:42 Pulse Ox 96 04/17/20 09:53 04/16/20 04/17/20 04/17/20 22:59 06:59 14:59 Intake Total 50 / 1479.5 50 / 1529.5 1300 / 1300 Output Total 850 / 1300 150 / 150 Balance 50 / 1029.5 -800 / 229.5 1150 / 1150 Physical Exam Const: COMMON NORMALS: no acute distress GENERAL APPEARANCE: cooperative ORIENTATION/CONSCIOUSNESS: Yes awake, Yes oriented to person, Yes oriented to place and Yes confused; not oriented to time HENMT: COMMON NORMALS: normocephalic HEAD & SCALP: normocephalic Neck/C-Spine: COMMON NORMALS: no JVD Resp: COMMON NORMALS: normal respiratory effort, No retractions, No use of accessory muscles and clear to auscultation bilaterally AUSCULTATION: clear to auscultation bilaterally Cardio: COMMON NORMALS: no JVD, regular rate, regular rhythm, S1 normal heart sound present and S2 normal heart sound present RATE: regular rate RHYTHM: regular rhythm HEART SOUNDS: S1 normal heart sound present and S2 normal heart sound present GI: COMMON NORMALS: Normal to inspection, nondistended, normoactive bowel sounds present, Soft to palpation, non-tender, No hepatosplenomegaly present, no masses and no bruits PALPATION: Yes Soft to palpation and Yes No hepatosplenomegaly present Extremity: COMMON NORMALS: capillary refill normal, no clubbing, cyanosis or edema, no calf tenderness and no pedal edema Neuro: SENSORIUM/ORIENTATION: Yes oriented to person, Yes oriented to place and No oriented to time Psych: COMMON NORMALS: mental status grossly normal Urinary Catheter Management^: Wang: Cath Placed During This Visit: no Reason for Continuing Indwelling Catheter: Acute Urinary Retention or Obstruction Data : 04/17/20 02:45 04/17/20 02:45 Micro: Microbiology 04/14/20 22:03 Urine Culture - Final Urine,Clean Catch A&P Assessment and plan (1) Sepsis: -Leukocytosis, hypotensive on admission, CRP 44.2, pro-Agusot 1.23 history of positive blood cultures Streptococcus viridans -Remains afebrile, normotensive, does have intermittent episodes of confusion -Has no complaints particularly, no abdominal complaints, no chest pain complaints -Source of infection is concerning for cardiac, given his history of TAVR, repeat blood cultures negative, bacteremia has cleared,, on room air, afebrile, CT of the head negative for septic emboli -However he does have elevated T bili, alk phos, CRP, pro-Agusto, I was concerned for possible acute ascending cholangitis, cannot have an MRCP due to pacemaker, ultrasound of the liver showed acute and or chronic cholecystitis, with gallstones, CT scan of the abdomen did show any significant biliary ductal dilatation. I went over scans with Dr. Jones for radiology, looks more like chronic cholecystitis. T bili is 1.7 this morning, AST ALT within normal m uscular alk phos 220, HIDA scan did show findings are suspicious for cystic duct obstruction and cholecystitis -Does have infiltrates bilateral lung bases, given multiple ER visits, will cover for healthcare associated pneumonia -SARS Covid antigen negative PLAN: -Broadend antibiotic coverage to vancomycin and Zosyn -Follow repeat blood cultures, urine cultures but so far negative -Echocardiogram was a difficult study, but no gross evidence of valvular vegetations, but if he were to have repeat bacteremia, would likely require transesophageal echocardiogram -Acute hepatitis panel negative -CT of the head was negative for intracranial hemorrhage, acute stroke, septic emboli -Neurochecks, aspiration precautions, seizure precautions, -General surgery consulted due to concerns for cystic duct obstruction and acute cholecystitis -Dysphagia diet -Kept n.p.o. -Patient is a full code -Clinically I feel the patient is about the same compared to yesterday, is afebrile, normotensive, repeat blood cultures are negative, white blood cells trending down, inflammatory markers trending down, however has a persistent elevated T bili and alk phos Status: Acute Qualifiers: Sepsis acute organ dysfunction status: unspecified Sepsis type: Streptococcus, other Qualified Code(s): A40.8 - Other streptococcal sepsis (2) Acute retention of urine: -CT scan does show enlarged prostate, likely production obstruction -Continue Wang, discharged with Wang and follow-up with urology Status: Acute (3) BPH (benign prostatic hyperplasia): Status: Acute (4) Atrial fibrillation: -Telemetry monitoring, Pradaxa Status: Acute (5) HTN (hypertension): -Monitor blood pressure Status: Acute (6) ASHD (arteriosclerotic heart disease): Status: Acute (7) S/P CABG (coronary artery bypass graft): Status: Acute (8) Ischemic cardiomyopathy: -Creatinine 1.3 Status: Acute (9) CKD (chronic kidney disease): Status: Acute (10) Carotid stenosis, bilateral: Status: Acute (11) Aortic stenosis: Status: Acute (12) Mitral regurgitation: Status: Acute (13) Pulmonary HTN: Status: Acute (14) S/P ICD (internal cardiac defibrillator) procedure: Status: Acute (15) S/P TAVR (transcatheter aortic valve replacement): Status: Acute (16) Septic encephalopathy: -Secondary to bacteremia Status: Acute (17) Streptococcus viridans infection: Status: Acute (18) Hyponatremia: -Likely hypovolemic hyponatremia, given history of heart failure, gentle IV hydration 50 cc an hour -Serum sodium improved to 132 -Fractional excretion of sodium 0.3, indicating prerenal -Monitor respiratory status closely, monitor oxygen requirements fairly closely, if any concerns of fluid overload will stop gentle IV hydration Status: Acute (19) Anemia: -Hemoglobin is down to 9.1, MCV of 82.1, no hemodynamic compromise Iron studies, ferritin, Hemoccult stool, Protonix- Status: Acute Additional A&P Information EMILY due to acute urinary tension secondary to BPH Wang catheter draining cloudy urine, follows up with Dr. Young now Seems to be improving, 1.3 today, 2 weeks ago 1.5 Hold lisinopril Hypothyroidism: Continue levothyroxine, tsh 3.3 Reduced ejection fraction heart failure no acute exacerbation, I will hold Lasix for now Can resume tomorrow, mild ascites with bilateral pleural effusion evident on abdominal CT scan TAVR status post pacemaker placement with upgradation to defibrillator No acute decompensation, chest pain-free CODE STATUS: Full code Cardiac diet DVT prophylaxis not needed currently on Pradaxa, slight drop in hemoglobin, monitor for now Physical therapy evaluation Attestations Medical Necessity Statement*: Patient course hospitalization for sepsis secondary to strep viridans bacteremia, hyponatremia, concerns for acute c holecystitis Coding Level of Care Code Acute [employer]erox Machine Operator for Chg Fwd Diagnoses Sepsis A40.8 Sepsis acute organ dysfunction status: unspecified Sepsis type: Streptococcus, other Acute retention of urine R33.8 BPH (benign prostatic hyperplasia) N40.0 Atrial fibrillation I48.91 HTN (hypertension) I10 ASHD (arteriosclerotic heart disease) I25.10 S/P CABG (coronary artery bypass graft) Z95.1 Ischemic cardiomyopathy I25.5 CKD (chronic kidney disease) N18.9 Carotid stenosis, bilateral I65.23 Aortic stenosis I35.0 Mitral regurgitation I34.0 Pulmonary HTN I27.20 S/P ICD (internal cardiac defibrillator) procedure Z95.810 S/P TAVR (transcatheter aortic valve replacement) Z95.2 Septic encephalopathy G93.41 Streptococcus viridans infection A49.1 Hyponatremia E87.1 Anemia D64.9
--- NOTE | 2020-04-17 11:54 | DCPLANNER ---
Pg 2 of IM updated and reviewed with pt. No questions, copy provided.
--- NOTE | 2020-04-17 13:46 | USR_ITS ---
PROCEDURE INFORMATION: Exam: US Abdomen Complete Exam date and time: 04/17/2020 2:43 PM Age: 84 years old Clinical indication: Abdominal tenderness; Additional info: Evalaute liver, ducts, galblaader TECHNIQUE: Imaging protocol: Real-time ultrasound of the abdomen with image documentation. COMPARISON: US abdomen limited [id number] 04/15/2020 9:27 AM FINDINGS: Pleural space: There is a right pleural effusion. Liver: The liver is homogeneous in echogenicity. The liver measures 15.1 cm in length. Gallbladder: There is cholelithiasis with 1 gallstone measuring 1.3 cm in size. There is progressive gallbladder wall thickening now measuring 5.7 mm compared to 4 mm on the prior exam. There is a negative sonographic Cooper's sign. Common bile duct: The common bile duct is within normal limits at 4.4 mm. No mass or duct dilatation. Pancreas: Visualized pancreas is unremarkable. Right kidney: The right kidney measures 11.2 cm in length. The right kidney is unremarkable. No right stones, hydronephrosis or perinephric fluid. Left kidney: There is a simple cyst protruding from the lower pole left kidney measuring 7.9 x 6.9 cm in size. The left kidney measures 10.9 cm in length. The left kidney is unremarkable without any stones or hydronephrosis. The echotexture of the left kidney is appropriate. Spleen: The spleen is homogeneous in echogenicity measuring 12.6 cm in length. Aorta: The aorta is unremarkable measuring 1.4 cm. Inferior vena cava: Normal. US/US abdomen complete* [id number] IMPRESSION: 1. Cholelithiasis. Increasing gallbladder wall thickening compatible with cholecystitis. No duct dilatation. 2. Right pleural effusion.
[2020-04-18] VITALS (8 sets, daily range): BP systolic 132–149; BP diastolic 73–89; PULSE 59–83; RESP 16–27; TEMP 36.3–36.8; O2SAT 94–97
[2020-04-18 05:13] LABS: Basophils # 0.1 10^3/uL (0.0-0.1); Basophils % 0.8 %; Eosinophils # 0.3 10^3/uL (0.0-0.8); Eosinophils % 2.3 %; Hematocrit 33.5 % (42.0-52.0); Hemoglobin 10.5 g/dL (11.7-16.6); Lymphocytes # 1.4 10^3/uL (0.8-4.8); Lymphocytes % 12.8 %; Mean Corpuscular HGB Conc 31.3 g/dL (30.0-36.0); Mean Corpuscular Hemoglobin 26.4 pg (28.0-34.0); Mean Corpuscular Volume 84.2 fL (80-94); Mean Platelet Volume 12.5 fL (7.4-10.4); Monocytes # 0.7 10^3/uL (0.2-0.9); Monocytes % 6.9 %; Neutrophils # 8.17 10^3/uL (1.8-7.7); Neutrophils % 76.3 %; Nucleated Red Blood Cells % 0 %; Platelet Count 193 10^3/cmm (130-400); Red Blood Count 3.98 10^6/uL (4.1-5.3); Red Cell Distribution Width 18.2 % (12.1-15.1); White Blood Count 10.7 10^3/uL (4.0-10.0)
[2020-04-18 05:34] LABS: INR 1.52 (0.8-1.2)
[2020-04-18] MEDS: piperacillin-tazobactam 3.375 GM in sodium chloride 0.9% (plus) 50 ML IV ×3 (05:44→22:23)
[2020-04-18 05:49] LABS: Alanine Aminotransferase 23 U/L (0-41); Alkaline Phosphatase 201 IU/L (40-130); Aspartate Amino Transferase 31 U/L (0-40); Blood Urea Nitrogen 11 mg/dL (8-23); Calcium 7.7 mg/dL (8.5-10.5); Carbon Dioxide 16 mmol/L (22-29); Chloride 104 mmol/L (98-107); Globulin 2.8 g/dL (1.3-4.6); Glucose 74 mg/dL (65-115); Magnesium 2.1 mg/dL (1.7-2.3); Osmolality Calculated 274 mOsm/kg (285-295); Phosphorus 2.3 mg/dL (2.5-4.5); Sodium 133 mmol/L (136-145); Total Bilirubin 1.7 mg/dL (0.15-1.2); Total Protein 5.8 g/dL (6.6-8.7)
[2020-04-18 05:50] LABS: C Reactive Protein 23.8 mg/L (0.0-4.9)
[2020-04-18 05:55] LABS: Anion Gap 16.8 (5-19); NT Pro B Type Natriuretic Pept 7096 pg/mL (0-450); Potassium 3.8 mmol/L (3.5-5.1); Procalcitonin 0.34 ng/mL (0-0.5)
[2020-04-18] MEDS: clopidogrel 75 mg Tablet PO (14:00)
[2020-04-18] MEDS: atorvastatin 40 mg Tablet PO (14:00)
[2020-04-18] MEDS: levothyroxine 150 mcg Tablet PO (14:01)
[2020-04-18] MEDS: sodium chloride 0.9% 1,000 ML 50 ML IV (14:02)
[2020-04-18 15:13] LABS: Osmolality Urine 343 mOsm/kg (50-1200)
--- NOTE | 2020-04-18 15:14 | PM.PN ---
Subjective Subjective: Interval history: Tank reports he is hungry. He reports no significant abdominal pain currently. Medications: Reviewed: Yes Vitals/I&O/Wt Last Vital Signs Temp 97.6 F 04/18/20 12:00 Pulse 62 04/18/20 12:00 Resp 21 H 04/18/20 12:00 BP 149/73 04/18/20 12:00 Pulse Ox 96 04/18/20 12:00 04/18/20 04/18/20 04/18/20 06:59 14:59 22:59 Intake Total 1300 / 2650 50 / 50 Output Total 225 / 675 Balance 1074 / 1974 50 / 50 Physical Exam Narrative: EXAM NARRATIVE: General exam is no apparent distress Cardiovascular regular rate and rhythm, no murmur Lungs clear Abdomen is soft. Positive bowel sounds. Nontender. Extremities no cyanosis clubbing or edema Urinary Catheter Management^: Wang: Cath Placed During This Visit: no Reason for Continuing Indwelling Catheter: Acute Urinary Retention or Obstruction Data : 04/18/20 04:29 04/18/20 04:29 Micro: Microbiology 04/14/20 22:03 Urine Culture - Final Urine,Clean Catch A&P Assessment and plan (1) Sepsis: Currently on Zosyn and vancomycin. Will discontinue vancomycin today. Blood cultures on admission negative to date. However blood cultures from April 06 demonstrated strep viridans 3 out of 3 bottles Past history of TAVR. Transthoracic echocardiogram no obvious vegetations Abnormal LFTs evaluated by abdominal ultrasound, CT abdomen and pelvis, and HIDA scan suggesting chronic cholecystitis, cholelithiasis Surgery has evaluated and does not believe surgery is needed currently. Will initiate a low-fat diet, and observe closely. Rapid Covid negative. PCR pending Consider transesophageal echo, cardiology to consult. Status: Acute Qualifiers: Sepsis acute organ dysfunction status: unspecified Sepsis type: Streptococcus, other Qualified Code(s): A40.8 - Other streptococcal sepsis (2) Acute retention of urine: Continue Wang Continue to follow-up with urology. Status: Acute (3) BPH (benign prostatic hyperplasia): Status: Acute (4) Atrial fibrillation: Continue Pradaxa for anticoagulation Status: Acute (5) HTN (hypertension): Restart carvedilol, low-dose Status: Acute (6) ASHD (arteriosclerotic heart disease): Restart carvedilol, low-dose Status: Acute (7) S/P CABG (coronary artery bypass graft): Status: Acute (8) Ischemic cardiomyopathy: Status: Acute (9) CKD (chronic kidney disease): Status: Acute (10) Carotid stenosis, bilateral: Status: Acute (11) Aortic stenosis: Status: Acute (12) Mitral regurgitation: Status: Acute (13) Pulmonary HTN: Status: Acute (14) S/P ICD (internal cardiac defibrillator) procedure: Status: Acute (15) S/P TAVR (transcatheter aortic valve replacement): Status: Acute (16) Septic encephalopathy: Resolved Status: Acute (17) Streptococcus viridans infection: No evidence of recurrence of bacteremia currently. Status: Acute (18) Hyponatremia: Mild Status: Acute (19) Anemia: Stable Status: Acute Additional A&P Information Acute kidney injury, resolved Hypothyroidism, continue thyroid hormone Full code No DVT prophylaxis, he is on Pradaxa Attestations Medical Necessity Statement*: Needs continued hospitalization for exploration of strep bacteremia Coding Level of Care Code Acute Mop Machine Operator for g Fwd Diagnoses Sepsis A40.8 Sepsis acute organ dysfunction status: unspecified Sepsis type: Streptococcus, other Acute retention of urine R33.8 BPH (benign prostatic hyperplasia) N40.0 Atrial fibrillation I48.91 HTN (hypertension) I10 ASHD (arteriosclerotic heart disease) I25.10 S/P CABG (coronary artery bypass graft) Z95.1 Ischemic cardiomyopathy I25.5 CKD (chronic kidney disease) N18.9 Carotid stenosis, bilateral I65.23 Aortic stenosis I35.0 Mitral regurgitation I34.0 Pulmonary HTN I27.20 S/P ICD (internal cardiac defibrillator) procedure Z95.810 S/P TAVR (transcatheter aortic valve replacement) Z95.2 Septic encephalopathy G93.41 Streptococcus viridans infection A49.1 Hyponatremia E87.1 Anemia D64.9
[2020-04-18] MEDS: pantoprazole DR 40 mg Tablet PO (18:06)
[2020-04-18] MEDS: carvedilol 3.125 mg Tablet PO (18:06)
--- NOTE | 2020-04-18 19:01 | PC.NURSE ---
Report to Sara DIAZ
[2020-04-19] VITALS (9 sets, daily range): BP systolic 116–148; BP diastolic 74–84; PULSE 60–81; RESP 18–19; TEMP 36.3–37; O2SAT 94–97
[2020-04-19 03:01] LABS: Basophils # 0.1 10^3/uL (0.0-0.1); Eosinophils # 0.3 10^3/uL (0.0-0.8); Eosinophils % 2.4 %; Hematocrit 31.9 % (42.0-52.0); Lymphocytes # 1.5 10^3/uL (0.8-4.8); Lymphocytes % 12.7 %; Mean Corpuscular HGB Conc 31.3 g/dL (30.0-36.0); Mean Corpuscular Volume 83.1 fL (80-94); Monocytes % 8.3 %; Neutrophils # 8.55 10^3/uL (1.8-7.7); Neutrophils % 74.6 %; Nucleated Red Blood Cells % 0 %; Platelet Count 194 10^3/cmm (130-400); Red Blood Count 3.84 10^6/uL (4.1-5.3); Red Cell Distribution Width 18.7 % (12.1-15.1); White Blood Count 11.5 10^3/uL (4.0-10.0)
[2020-04-19 03:21] LABS: Alanine Aminotransferase 24 U/L (0-41); Alkaline Phosphatase 202 IU/L (40-130); Anion Gap 12.5 (5-19); Aspartate Amino Transferase 29 U/L (0-40); Blood Urea Nitrogen 12 mg/dL (8-23); Calcium 8.3 mg/dL (8.5-10.5); Carbon Dioxide 20 mmol/L (22-29); Chloride 106 mmol/L (98-107); Globulin 3.1 g/dL (1.3-4.6); Glucose 105 mg/dL (65-115); Osmolality Calculated 280 mOsm/kg (285-295); Potassium 3.5 mmol/L (3.5-5.1); Sodium 135 mmol/L (136-145); Total Bilirubin 1.6 mg/dL (0.15-1.2); Total Protein 6.1 g/dL (6.6-8.7)
[2020-04-19] MEDS: piperacillin-tazobactam 3.375 GM in sodium chloride 0.9% (plus) 50 ML IV ×3 (06:17→22:01)
[2020-04-19 08:36] LABS: Coronavirus Lab Test PTC Negative
--- NOTE | 2020-04-19 09:19 | PC.NURSE ---
patient is negative for covid. inspector automatic typewriter notified Dr Montoya. Per Dr Montoya, discontinue isolations precautions
[2020-04-19] MEDS: atorvastatin 40 mg Tablet PO (09:21)
[2020-04-19] MEDS: clopidogrel 75 mg Tablet PO (09:21)
[2020-04-19] MEDS: levothyroxine 150 mcg Tablet PO (09:21)
[2020-04-19] MEDS: FUROsemide 40 mg Tablet PO (09:21)
[2020-04-19] MEDS: carvedilol 3.125 mg Tablet PO ×2 (09:21→16:59)
[2020-04-19] MEDS: pantoprazole DR 40 mg Tablet PO ×2 (09:21→16:59)
--- NOTE | 2020-04-19 10:25 | PC.SOCIAL ---
IMM Updated Explained to pt Pg 2 IMM. No questions voiced. Provided pt a copy. Signed, dated, & timed copy in chart.
--- NOTE | 2020-04-19 10:59 | PM.PN ---
Subjective Subjective: Interval history: Tank reports he is doing okay. No specific complaints at this time. Medications: Reviewed: Yes Vitals/I&O/Wt Last Vital Signs Temp 97.6 F 04/19/20 08:00 Pulse 81 04/19/20 09:32 Resp 18 04/19/20 09:32 BP 145/80 04/19/20 08:00 Pulse Ox 96 04/19/20 09:32 04/18/20 04/19/20 04/19/20 22:59 06:59 14:59 Intake Total 370 / 420 50 / 470 0 / 0 Output Total 800 / 800 400 / 1200 650 / 650 Balance -430 / -380 -350 / -730 -650 / -650 Physical Exam Narrative: EXAM NARRATIVE: General exam is no apparent distress Cardiovascular regular rate and rhythm, no murmur Lungs clear Abdomen is soft. Positive bowel sounds. Nontender. Extremities no cyanosis clubbing or edema Urinary Catheter Management^: Wang: Cath Placed During This Visit: no Reason for Continuing Indwelling Catheter: Chronic Indwelling Urinary Catheter on Admission Data : 04/19/20 02:48 04/19/20 02:48 A&P Assessment and plan (1) Sepsis: Currently on Zosyn. Blood culture demonstrated strep viridans as an outpatient. Repeat blood cultures negative. Organism could potentially have come from chronic cholecysitis Past history of TAVR. Transthoracic echocardiogram no obvious vegetations Abnormal LFTs evaluated by abdominal ultrasound, CT abdomen and pelvis, and HIDA scan suggesting chronic cholecystitis, cholelithiasis Surgery has evaluated and does not believe surgery is needed currently. Low-fat diet has been initiated, which she is tolerating well. Rapid Covid negative. PCR is negative. He is taken out of isolation. Await transesophageal echo, cardiology to consult. Status: Acute Qualifiers: Sepsis acute organ dysfunction status: unspecified Sepsis type: Streptococcus, other Qualified Code(s): A40.8 - Other streptococcal sepsis (2) Acute retention of urine: Continue Wang Continue to follow-up with urology. Status: Acute (3) BPH (benign prostatic hyperplasia): Status: Acute (4) Atrial fibrillation: Continue Pradaxa for anticoagulation Status: Acute (5) HTN (hypertension): Carvedilol, low-dose has been restarted Status: Acute (6) ASHD (arteriosclerotic heart disease): Carvedilol has been reinitiated Status: Acute (7) S/P CABG (coronary artery bypass graft): Status: Acute (8) Ischemic cardiomyopathy: Status: Acute (9) CKD (chronic kidney disease): Status: Acute (10) Carotid stenosis, bilateral: Status: Acute (11) Aortic stenosis: Status: Acute (12) Mitral regurgitation: Status: Acute (13) Pulmonary HTN: Status: Acute (14) S/P ICD (internal cardiac defibrillator) procedure: Status: Acute (15) S/P TAVR (transcatheter aortic valve replacement): Status: Acute (16) Septic encephalopathy: Resolved Status: Acute (17) Streptococcus viridans infection: No evidence of recurrence of bacteremia currently. Status: Acute (18) Hyponatremia: Mild Status: Acute (19) Anemia: Stable Status: Acute Additional A&P Information Acute kidney injury, resolved Hypothyroidism, continue thyroid hormone Full code No DVT prophylaxis, he is on Pradaxa Attestations Medical Necessity Statement*: Needs continued hospitalization for IV antibiotics secondary to bacteremia. Coding Level of Care Code Acute Vice President And Portfolio Manager for Chg Fwd Diagnoses Sepsis A40.8 Sepsis acute organ dysfunction status: unspecified Sepsis type: Streptococcus, other Acute retention of urine R33.8 BPH (benign prostatic hyperplasia) N40.0 Atrial fibrillation I48.91 HTN (hypertension) I10 ASHD (arteriosclerotic heart disease) I25.10 S/P CABG (coronary artery bypass graft) Z95.1 Ischemic cardiomyopathy I25.5 CKD (chronic kidney disease) N18.9 Carotid stenosis, bilateral I65.23 Aortic stenosis I35.0 Mitral regurgitation I34.0 Pulmonary HTN I27.20 S/P ICD (internal cardiac defibrillator) procedure Z95.810 S/P TAVR (transcatheter aortic valve replacement) Z95.2 Septic encephalopathy G93.41 Streptococcus viridans infection A49.1 Hyponatremia E87.1 Anemia D64.9
--- NOTE | 2020-04-19 11:06 | USCV_ITS ---
Tank Saavedra Age: 84 Gender: M : 1935 Exam Date: 04/19/2020 12:52 Ordering Phys: Juan Montoya MD Technologist: Josee Sanchez [place]am [place] [facility] [place]: BACTERMIA BP: / HR: Rhythm: Sinus Technical Quality: Good MEASUREMENTS (Male / Female) Normal Values Medications Patient given IV sedation by anesthesia service, for details please refer to the anesthesia report. Complications None. Proc. Components FINDINGS Left Ventricle Normal left ventricular cavity size. Moderately decreased left ventricular systolic function. Left ventricular ejection fraction is estimated at 45 %. Global left ventricular hypokinesis. Right Ventricle Catheter/pacemaker wire visualized in the right ventricle. There is thickening around the pacemaker wires most likely due to tissue growth , there also appeared to be serpentine like tissue mass attached on tricuspid valve which look suspicious therefore cannot rule out vegetation, clincal correlation advised Right Atrium Mildly increased right atrial size. Catheter/pacemaker wire in the right atrial cavity. Thickening of pacemaker wires noted most likely it is tissue growth around the pacemaker wires , clinical correlation advised Left Atrium The left atrium is normal in size. LA Appendage No obvious IA Septum The interatrial septum is normal. Mitral Valve Moderately thickened mitral valve. Moderate mitral annular calcification. No mitral valve stenosis. Mild mitral valve regurgitation. Aortic Valve Bioprosthetic stent aortic valve noted which is opening and closing fine without any perivalvular or valvular leak. There is no obvious vegetation however due to reverberation effect cannot rule out accurately Tricuspid Valve Structurally normal tricuspid valve without significant stenosis or regurgitation. Pulmonary artery systolic pressure is normal. Pulmonic Valve Structurally normal pulmonic valve without significant stenosis. There is no pulmonic regurgitation. Pericardium Normal pericardium without effusion. Aorta Normal ascending aorta dimension. CONCLUSIONS 1-Normal left ventricular cavity size. Moderately decreased left ventricular systolic function. Left ventricular ejection fraction is estimated at 45 %. Global left ventricular hypokinesis. 2-Catheter/pacemaker wire visualized in the right ventricle. There is thickening around the pacemaker wires most likely due to tissue growth , there also appeared to be serpentine like tissue mass attached on tricuspid valve which look suspicious therefore cannot rule out vegetation, clincal correlation advised. 3-Mildly increased right atrial size. Catheter/pacemaker wire in the right atrial cavity. Thickening of pacemaker wires noted most likely it is tissue growth around the pacemaker wires , clinical correlation advised. 4-Moderately thickened mitral valve. Moderate mitral annular calcification. No mitral valve stenosis. Mild mitral valve regurgitation. 5-Bioprosthetic stent aortic valve noted which is opening and closing fine without any perivalvular or valvular leak. There is no obvious vegetation however due to reverberation effect cannot rule out . 6-Structurally normal tricuspid valve without significant stenosis or regurgitation. Pulmonary artery systolic pressure is normal. 7-There is no pericardial effusion. 8-There are no prior echocardiogram studies to compare. Bo Forman MD (Electronically Signed) Final Date: 19 April 2020 20:06 S
--- NOTE | 2020-04-19 11:26 | PM.CONSULT ---
Providers/Reason For Consult Consulting Physican/Specialty*: Cardiology Reason for Consult*: Sepsis bacteremia in a patient who has bioprosthetic valve and ICD Attending Physician: Juan Montoya MD Primary Care Provider: Jacquie Coto NP History of Present Illness History of Present Illness Tank Saavedra is a 84 year old male past medical history significant for possible dementia hypertension hyperlipidemia ischemic cardiomyopathy history of CABG history of TAVR bioprosthetic aortic valve presented with sepsis since he grew strep viridans and due to persistent bacteremia we have been asked to assess for prosthesis or wales valve vegetation/intracardiac bacterial source. I spoke to the patient and he agreed to it. He has been explained all risk benefits and alternative for the procedure by myself. He would like to proceed with it. Dr. Edgar has also spoke to his family who would like to proceed with transesophageal echocardiogram in order to decide regarding future intervention and duration of IV antibiotics. Review of Systems General: Reports: 10 or more systems reviewed and unremarkable except in HPI and below and ROS unobtainable due to mental status Const: Reports: chills, body aches, fatigue, malaise and daytime sleepiness; Denies: fever(s) Eyes: Denies: change in vision ENMT: Reports: nasal discharge and nasal congestion; Denies: throat pain Card: Denies: chest pain Resp: Denies: dyspnea GI: Denies: abdominal pain : Denies: flank pain Musc: Reports: muscle weakness Skin/Breast: Reports: lesions Neuro: Reports: difficulty walking; Denies: headache(s) Psych: Reports: sleeping more Endo: Denies: polyuria Bebeto/Lymph: Denies: easy bruising All/Imm: Denies: urticaria Meds/Allergies Home Medications and Allergies Home Medications Medication Instructions Recorded Confirmed Last Taken Type amlodipine 5 mg tablet 2.5 mg PO BID tab 09/22/19 04/15/20 Unknown History atorvastatin 40 mg tablet 40 mg PO DAILY 09/22/19 04/15/20 Unknown History carvedilol 25 mg tablet 25 mg PO BID 09/22/19 04/15/20 Unknown History cetirizine 10 mg tablet 10 mg PO DAILY PRN tab 09/22/19 04/15/20 Unknown History cholecalciferol (vitamin D3) 10 400 unit PO DAILY 09/22/19 04/15/20 Unknown History mcg (400 unit) capsule difluprednate 0.05 % eye drops 1 drop OPHTHALMIC (EYE) BID 09/22/19 04/15/20 Unknown History furosemide 40 mg tablet 40 mg PO BID 09/22/19 04/15/20 Unknown History hydrocodone 5 mg-acetaminophen 325 1 tab PO Q8H PRN 09/22/19 04/15/20 Unknown History mg tablet lisinopril 20 mg tablet 20 mg PO BID 09/22/19 04/15/20 Unknown History lycopene 10 mg capsule 10 mg PO DAILY 09/22/19 04/15/20 Unknown History nitroglycerin 0.4 mg sublingual 0.4 mg SUBLINGUAL Q5M PRN 09/22/19 04/15/20 Unknown History tablet omega-3 fatty acids 1,000 mg 1,000 mg PO DAILY 09/22/19 04/15/20 Unknown History capsule potassium chloride 10 mEq 10 meq PO DAILY 09/22/19 04/15/20 Unknown History tablet,extended release(part/cryst) clopidogrel 75 mg tablet 75 mg PO DAILY #90 tab 12/24/19 04/15/20 Unknown Rx dabigatran etexilate 75 mg capsule 75 mg PO BID #180 cap 12/24/19 04/15/20 Unknown Rx levothyroxine 137 mcg capsule 150 mcg PO DAILY cap 12/24/19 04/15/20 Unknown History Allergies Allergy/AdvReac Type Severity Reaction Status Date / Time fenofibrate Allergy Unknown Unknown Verified 04/17/20 09:38 levofloxacin Allergy Unknown Unknown Verified 04/17/20 09:38 niacin Allergy Unknown Unknown Verified 04/17/20 09:38 Current Medications Current Medications Generic Name Dose Route Start Last Admin Trade Name Terryq PRN Reason Stop Dose Admin Atorvastatin Calcium 40 mg 04/15/20 09:00 04/19/20 09:21 Lipitor PO 40 mg DAILY DEONNA Administration Carvedilol 3.125 mg 04/18/20 18:00 04/19/20 09:21 Coreg PO 3.125 mg BID DEONNA Administration Clopidogrel Bisulfate 75 mg 04/15/20 09:00 04/19/20 09:21 Plavix PO 75 mg DAILY DEONNA Administration Dabigatran 75 mg 04/15/20 09:00 04/19/20 09:21 Pradaxa PO 75 mg BID DEONNA Administration Furosemide 40 mg 04/19/20 08:00 04/19/20 09:21 Lasix PO 40 mg DAILY@0800 DEONNA Administration Piperacillin Sod/Tazobactam 50 mls @ 12.5 mls/hr 04/15/20 11:30 04/19/20 06:17 Sod 3.375 gm/ Sodium Chloride IV 12.5 mls/hr Q8H DEONNA Administration Protocol As Directed Levothyroxine Sodium 150 mcg 04/15/20 09:00 04/19/20 09:21 Synthroid PO 150 mcg DAILY DEONNA Administration Pantoprazole Sodium 40 mg 04/15/20 18:00 04/19/20 09:21 Protonix PO 40 mg BID DEONNA Administration PFSH Acute PFSH: Medical History Anticoagulation adequate with anticoagulant therapy Direct thrombin inhibitor Pradaxa Aortic stenosis ASHD (arteriosclerotic heart disease) Atrial fibrillation Carotid stenosis, bilateral CKD (chronic kidney disease) Dyslipidemia Gross hematuria HTN (hypertension) Hypothyroidism Ischemic cardiomyopathy Mitral regurgitation Pulmonary HTN SSS (sick sinus syndrome) Surgical History S/P CABG (coronary artery bypass graft) S/P cataract extraction S/P hernia repair S/P ICD (internal cardiac defibrillator) procedure S/P TAVR (transcatheter aortic valve replacement) Family History Mother CAD (coronary artery disease) Father Stroke Social History Smoking and tobacco status: never smoked Household members: spouse Marital status: Dietary Habits: Current diet type/program: regular Caffeine: Yes Vitals/I&O/Wt Last Vital Signs Temp 97.6 F 04/19/20 08:00 Pulse 81 04/19/20 09:32 Resp 18 04/19/20 09:32 BP 145/80 04/19/20 08:00 Pulse Ox 96 04/19/20 09:32 04/18/20 04/19/20 04/19/20 22:59 06:59 14:59 Intake Total 370 / 420 50 / 470 0 / 0 Output Total 800 / 800 400 / 1200 650 / 650 Balance -430 / -380 -350 / -730 -650 / -650 Physical Exam Narrative: EXAM NARRATIVE: GENERAL: Patient is alert, awake and oriented he appears to be afebrile NECK: No jugular vein distension. HEENT: No cyanosis. No icterus. No pallor. HEART: Regular S1 and S2. No murmur, rub or gallop. LUNGS: Clear to auscultate bilaterally. ABDOMEN: Soft, nontender and nondistended. Positive bowel sounds. No guarding, rebound or tenderness. CENTRAL NERVOUS SYSTEM: Grossly nonfocal. EXTREMITIES: Lower extremities without edema bilaterally. Urinary Catheter Management^: Wang: Cath Placed During This Visit: no Reason for Continuing Indwelling Catheter: Chronic Indwelling Urinary Catheter on Admission A&P Assessment and plan (1) Positive blood culture: Since patient continues to have persistent bacteremia and growing strep viridans plus he has melleu you for bacterial nidus such as bioprosthetic aortic valve on stent, ICD device. We therefore agree proceeding with transesophageal echocardiogram. Patient has been discussed in detail all risk benefit and alternative for the procedure he would like to proceed with it. Status: Acute (2) Atrial fibrillation: Rate controlled anticoagulation continue meds Status: Acute Qualifiers: Atrial fibrillation type: persistent (not longstanding) Qualified Code(s): I48.19 - Other persistent atrial fibrillation (3) S/P CABG (coronary artery bypass graft): Stable. Continue medicine Status: Acute Consult Attestations Medical Necessity Statement: Patient require continuation hospitalization for above defined care. Coding Level of Care Code New Pt Acute Cartridge Gauger for Chg Fwd Patient Type New History Expanded Problem Focused Exam Expanded Problem Focused Medical Decision Making Moderate Complexity Diagnoses Positive blood culture R78.81 Atrial fibrillation I48.19 Atrial fibrillation type: persistent (not longstanding) S/P CABG (coronary artery bypass graft) Z95.1
--- NOTE | 2020-04-19 11:48 | P.ANESASSM_ITS ---
Pre-Anesthetic Assessment Pre-Anesthetic Assessment: Height/Weight: Height 1.85 m Weight 81.647 kg Temp Pulse Resp BP Pulse Ox 97.6 F 81 18 145/80 96 04/19/20 08:00 04/19/20 09:32 04/19/20 09:32 04/19/20 08:00 04/19/20 09:32 Preop Diagnosis: sepsis Proposed Procedure: PRICILA Familial anesthetic complications: None Was Beta Sea taken within 24 hours: Yes Last intake: NPO > 8 hrs Social: Social History: No alcohol and No tobacco Exam: Pre-Anes Outpt Exam: alert, oriented x 3, clear to auscultation bilaterally and regular rate & rhythm Airway: Cervical ROM: WNL MP: 3 Dentition: Chipped and Other (missing) CV/HEM: CV/HEM: Afib, CAD and HTN Comments: Dual pacer w/ ICD for sick sinus syndrome, s/p cabg and TAVR most recent echo Ef 55% : : Chronic renal Insufficiency Metabolic: Comments: sepsis Neuropsych: Comments: B/L RAIMUNDO Anesthetic Plan: ASA status: 4 Anesthesia: MAC Risk of > 500 ml blood loss (7ml/kg in children): No Meds/Allergies Current Medications: Current Medications Generic Name Dose Route Start Last Admin Trade Name Freq PRN Reason Stop Dose Admin Atorvastatin Calci um 40 mg 04/15/20 09:00 04/19/20 09:21 Lipitor PO 40 mg DAILY DEONNA Administration Carvedilol 3.125 mg 04/18/20 18:00 04/19/20 09:21 Coreg PO 3.125 mg BID DEONNA Administration Clopidogrel Bisulf ate 75 mg 04/15/20 09:00 04/19/20 09:21 Plavix PO 75 mg DAILY DEONNA Administration Dabigatran 75 mg 04/15/20 09:00 04/19/20 09:21 Pradaxa PO 75 mg BID DEONNA Administration Furosemide 40 mg 04/19/20 08:00 04/19/20 09:21 Lasix PO 40 mg DAILY@0800 DEONNA Administration Piperacillin Sod/T azobactam 50 mls @ 12.5 mls /hr 04/15/20 11:30 04/19/20 06:17 Sod 3.375 gm/ So dium Chloride IV 12.5 mls/hr Q8H DEONNA Administration Protocol As Directed Levothyroxine Sodi um 150 mcg 04/15/20 09:00 04/19/20 09:21 Synthroid PO 150 mcg DAILY DEONNA Administration Pantoprazole Sodiu m 40 mg 04/15/20 18:00 04/19/20 09:21 Protonix PO 40 mg BID DEONNA Administration PFSH Anesthesia PFSH: Medical History Anticoagulation adequate with anticoagulant therapy Direct thrombin inhibitor Pradaxa Aortic stenosis ASHD (arteriosclerotic heart disease) Atrial fibrillation Carotid stenosis, bilateral CKD (chronic kidney disease) Dyslipidemia Gross hematuria HTN (hypertension) Hypothyroidism Ischemic cardiomyopathy Mitral regurgitation Pulmonary HTN SSS (sick sinus syndrome) Surgical History S/P CABG (coronary artery bypass graft) S/P cataract extraction S/P hernia repair S/P ICD (internal cardiac defibrillator) procedure S/P TAVR (transcatheter aortic valve replacement) Family History Mother CAD (coronary artery disease) Father Stroke Social History Smoking and tobacco status: never smoked Household members: spouse Marital status: Data Anesthesia CBC & Chem 7: 04/19/20 02:48 04/19/20 02:48 Other Labs: Laboratory Results - last 48 hr 04/15/20 04/17/20 04/18/20 13:21 09:23 04:29 WBC 10.7 H RBC 3.98 L Hgb 10.5 L Hct 33.5 L MCV 84.2 MCH 26.4 L MCHC 31.3 RDW 18.2 H Plt Count 193 MPV 12.5 H Neut % (Auto) 76.3 Lymph % (Auto) 12.8 [place] % (Auto) 6.9 Eos % (Auto) 2.3 Baso % (Auto) 0.8 Neut # (Auto) 8.17 H Lymph # (Auto) 1.4 [place] # (Auto) 0.7 Eos # (Auto) 0.3 Baso # (Auto) 0.1 Nucleated RBC % (auto) 0 Nucleated RBCs # 0.0 PT INR Sodium Potassium Chloride Carbon Dioxide Anion Gap BUN Creatinine GFR Calculation Glucose Calculated Osmolality Lactic Acid Calcium Phosphorus Magnesium Total Bilirubin AST ALT Alkaline Phosphatase C-Reactive Protein NT-Pro-B Natriuret Pep Total Protein Albumin Globulin Procalcitonin Urine Osmolality 343 Nasal/Oral COVID-19 PCR Negative 04/18/20 04/18/20 04/18/20 04:29 04:29 04:29 WBC RBC Hgb Hct MCV MCH MCHC RDW Plt Count MPV Neut % (Auto) Lymph % (Auto) [place] % (Auto) Eos % (Auto) Baso % (Auto) Neut # (Auto) Lymph # (Auto) [place] # (Auto) Eos # (Auto) Baso # (Auto) Nucleated RBC % (auto) Nucleated RBCs # PT 18.80 H INR 1.52 H Sodium 133 L Potassium 3.8 Chloride 104 Carbon Dioxide 16 L Anion Gap 16.8 BUN 11 Creatinine 1.1 GFR Calculation Not Reportable Glucose 74 Calculated Osmolality 274 L Lactic Acid Calcium 7.7 L Phosphorus 2.3 L Magnesium 2.1 Total Bilirubin 1.7 H AST 31 ALT 23 Alkaline Phosphatase 201 H C-Reactive Protein 23.8 H NT-Pro-B Natriuret Pep Total Protein 5.8 L Albumin 3.0 L Globulin 2.8 Procalcitonin Urine Osmolality Nasal/Oral COVID-19 PCR 04/18/20 04/18/20 04/19/20 04:29 04:29 02:48 WBC 11.5 H RBC 3.84 L Hgb 10.0 L Hct 31.9 L MCV 83.1 MCH 26.0 L MCHC 31.3 RDW 18.7 H Plt Count 194 MPV 12.0 H Neut % (Auto) 74.6 Lymph % (Auto) 12.7 [place] % (Auto) 8.3 Eos % (Auto) 2.4 Baso % (Auto) 1.0 Neut # (Auto) 8.55 H Lymph # (Auto) 1.5 [place] # (Auto) 1.0 H Eos # (Auto) 0.3 Baso # (Auto) 0.1 Nucleated RBC % (auto) 0 Nucleated RBCs # 0.0 PT INR Sodium Potassium Chloride Carbon Dioxide Anion Gap BUN Creatinine GFR Calculation Glucose Calculated Osmolality Lactic Acid 1.0 Calcium Phosphorus Magnesium Total Bilirubin AST ALT Alkaline Phosphatase C-Reactive Protein NT-Pro-B Natriuret Pep 7096 H Total Protein Albumin Globulin Procalcitonin 0.34 Urine Osmolality Nasal/Oral COVID-19 PCR 04/19/20 02:48 WBC RBC Hgb Hct MCV MCH MCHC RDW Plt Count MPV Neut % (Auto) Lymph % (Auto) [place] % (Auto) Eos % (Auto) Baso % (Auto) Neut # (Auto) Lymph # (Auto) [place] # (Auto) Eos # (Auto) Baso # (Auto) Nucleated RBC % (auto) Nucleated RBCs # PT INR Sodium 135 L Potassium 3.5 Chloride 106 Carbon Dioxide 20 L Anion Gap 12.5 BUN 12 Creatinine 1.3 H GFR Calculation Not Reportable Glucose 105 Calculated Osmolality 280 L Lactic Acid Calcium 8.3 L Phosphorus Magnesium Total Bilirubin 1.6 H AST 29 ALT 24 Alkaline Phosphatase 202 H C-Reactive Protein NT-Pro-B Natriuret Pep Total Protein 6.1 L Albumin 3.0 L Globulin 3.1 Procalcitonin Urine Osmolality Nasal/Oral COVID-19 PCR Cardiac Studies: No Data to Display
--- NOTE | 2020-04-19 12:18 | PC.NURSE ---
Rcelisa verbal consent from patient's Jania Saavedra.
--- NOTE | 2020-04-19 12:50 | PC.NURSE ---
patient to ICU for PRICILA, via wheelchair. Patient connected to monitor. Patient aa0x3 but confused. Consent obtained by floor nurse via telephone with patient's .
--- NOTE | 2020-04-19 13:06 | PC.NURSE ---
PRICILA procedure complete. Anesthesia monitoring patient.
--- NOTE | 2020-04-19 13:39 | PC.NURSE ---
Report called to JC Gasca, on WSO2. No further questions. VSS, patient AAOx3.
--- NOTE | 2020-04-19 13:55 | PC.NURSE ---
Patient taken to [facility] via wheelchair, accompanied by this nurse. Patient placed back on telemetry. Nurse at bedside. Call light given to patient.
[2020-04-20] VITALS (8 sets, daily range): BP systolic 134–149; BP diastolic 75–90; PULSE 58–77; RESP 16–18; TEMP 36.5–36.8; O2SAT 95–97
[2020-04-20] MEDS: piperacillin-tazobactam 3.375 GM in sodium chloride 0.9% (plus) 50 ML IV ×2 (05:54→13:17)
[2020-04-20] MEDS: FUROsemide 40 mg Tablet PO (09:09)
[2020-04-20] MEDS: atorvastatin 40 mg Tablet PO (09:09)
[2020-04-20] MEDS: clopidogrel 75 mg Tablet PO (09:09)
[2020-04-20] MEDS: carvedilol 3.125 mg Tablet PO (09:09)
[2020-04-20] MEDS: levothyroxine 150 mcg Tablet PO (09:09)
[2020-04-20] MEDS: pantoprazole DR 40 mg Tablet PO (09:09)
--- NOTE | 2020-04-20 14:08 | PM.DCS ---
Discharge Providers Date of Admission: 04/14/20 23:02 Date of Discharge: April 20, 2020 Attending Provider at Admission: Bo Wilson MD Attending Provider at Discharge: Juna Montoya MD Primary Care Provider: Jacquie Coto NP Diagnoses at Discharge Discharge Diagnosis (1) Positive blood culture: Status: Acute Problem details: Strep viridans. Unknown source. PRICILA negative. Will finish 1 more week of IV antibiotic (2) Atrial fibrillation: Status: Acute Problem details: Controlled Qualifiers: Atrial fibrillation type: persistent (not longstanding) Qualified Code(s): I48.19 - Other persistent atrial fibrillation (3) S/P CABG (coronary artery bypass graft): Status: Acute Reason for Visit Reason for Visit: weakness Hospital Course Hospital Course: Tank is an 84-year-old white male who presented to the hospital with weakness. He had a previous history of transvalvular aortic replacement. There was concern he may be septic as elevated white blood cell count, and t tachycardia were noted on admission. Blood cultures were drawn. IV antibiotics started. Approximately had strep viridans grew out of a blood culture in the ER. He was prescribed Augmentin when this was noted but had only taken perhaps 1 to 2 days worth prior to coming in. Repeat blood cultures here were negative. He had no fever. He was initially placed on vancomycin and Zosyn. Transthoracic echocardiogram demonstrated no obvious vegetations. PRICILA was then performed demonstrating no obvious vegetations. There was also concern that he might have chronic cholecystitis, so surgery consult was obtained. This could also potentially be a source of the organism. Surgery ultimately did not believe he needed an intervention currently, but could follow-up in 2 weeks for reevaluation. At time of discharge she was afebrile, back to his baseline. It was decided to give him 1 more week of IV antibiotics, totaling 2 weeks in total for his bacteremia. Physical Exam Narrative: EXAM NARRATIVE: General exam no apparent distress Cardiovascular regular rate rhythm without murmur Lungs clear Abdomen is soft with positive bowel sounds Extremities no cyanosis clubbing or edema Urinary Catheter Management^: Wang: Cath Placed During This Visit: no Reason for Continuing Indwelling Catheter: Chronic Indwelling Urinary Catheter on Admission Discharge Data Data Completed and Pending: Completed Studies During Hospitalization Category Date Time Status CT abdomen pelvis w con* [id number] Stat Cat Scan 04/15/20 10:[address] head wo con* 7 0450 Stat Cat Scan 04/16/20 09:50 Completed XR chest 1V zurdo ble [id number] Urgent Exams 04/14/20 21:53 Completed NM hepatobiliary wo phar [id number] Stat Nuc Med 04/16/20 10:50 Completed CV echo complete* [id number] Routine Ultrasound 04/15/20 02:04 Completed CV echo transesop hageal 76729 Routi ne Ultrasound 04/19/20 11:06 Completed US abdomen comple te* [id number] Stat Ultrasound 04/17/20 13:46 Completed US abdomen limite d 74586 Stat Ultrasound 04/15/20 09:11 Completed Vitals: Last Vital Signs Temp 97.7 F 04/20/20 11:16 Pulse 62 04/20/20 11:16 Resp 18 04/20/20 11:16 BP 136/90 04/20/20 11:16 Pulse Ox 95 04/20/20 08:40 Discharge Plan Discharge Patient Disposition: Home Health Service Condition: Stable Prescriptions: New furosemide 40 mg Tablet 40 mg PO DAILY@0800 Qty: 30 RF: 0 carvedilol 3.125 mg Tablet 3.125 mg PO BID Qty: 60 RF: 0 Protonix 40 mg tablet,delayed release (DR/EC) 40 mg PO DAILY Qty: 30 RF: 0 ceftriaxone 2 gram recon soln 2 gm IM Q24H Qty: 7 RF: 0 Continued Pradaxa 75 mg capsule 75 mg PO BID Qty: 180 RF: 4 atorvastatin 40 mg tablet 40 mg PO DAILY RF: 0 potassium chloride [Klor-Con M10] 10 mEq tablet,ER particles/crystals 10 meq PO DAILY RF: 0 nitroglycerin [Nitrostat] 0.4 mg tablet, sublingual 0.4 mg SUBLINGUAL Q5M PRN (Reason: Chest Pain) RF: 0 cetirizine [Zyrtec] 10 mg tablet 10 mg PO DAILY PRN (Reason: Allergy Symptoms) RF: 0 omega-3 fatty acids [Fish Oil Concentrate] 1,000 mg capsule 1,000 mg PO DAILY RF: 0 cholecalciferol (vitamin D3) 400 unit capsule 400 unit PO DAILY RF: 0 lycopene 10 mg capsule 10 mg PO DAILY RF: 0 Durezol 0.05 % drops 1 drop ophthalmic (eye) BID RF: 0 hydrocodone-acetaminophen 5-325 mg tablet 1 tab PO Q8H PRN (Reason: Pain) RF: 0 levothyroxine 137 mcg capsule 150 mcg PO DAILY RF: 0 clopidogrel 75 mg tablet 75 mg PO DAILY Qty: 90 RF: 4 Discontinued lisinopril 20 mg tablet 20 mg PO BID RF: 0 carvedilol 25 mg tablet 25 mg PO BID RF: 0 amlodipine 5 mg tablet 2.5 mg PO BID RF: 0 furosemide 40 mg tablet 40 mg PO BID RF: 0 Discharge Orders: Discharge Order (Routine); Ordered 04/20/20 Ordered By: Juan Montoya Referrals: [facility] [Other] (This is the company that will be supplying your IV medication. They will have it delivered to your home by carrier service. If you have any questions regarding the process or delivery of this medication, you may call them at the phone number provided.) [facility] [Provider Group] - 06/10/20 10:30 am (Pacer check) [facility] [Outside] (This is the home health company that will be providing your home services and teaching you how to administer the IV medication. They will be in contact you when you discharge to set up a time to come out and see you. If you have not heard from them in 24 hours of being home, please call them at the phone number provided.) Miles Carnes MD [Physician] - 2 weeks Calixto Young MD [Physician] - 04/22/20 1:15 pm Jacquie Coto NP [Primary Care Provider] - 4-7 days (Hospital follow up) Discharge Diet: Cardiac Discharge Activity: Increase activity as tolerated Patient Instructions: Furosemide (By mouth), Ceftriaxone (Injection), Carvedilol (By mouth), Pantoprazole (By mouth), Transesophageal Echocardiogram (DC) Activity Restrictions/Additional Instructions: Take all medicine as prescribed Follow-up with your primary care provider to determine if blood pressure medicine will need to increase. Discharge Attestations Time Spent in Discharge Care*: greater than 30 min Quality Metrics Clinical Quality Measures During this hospital stay, did patient experience: None Coding Level of Care Code Acute Survey Research Professor for Baldomerog Fwd Diagnoses Positive blood culture R78.81 Atrial fibrillation I48.19 Atrial fibrillation type: persistent (not longstanding) S/P CABG (coronary artery bypass graft) Z95.1
[2020-04-20] MEDS: cefTRIAXone 2,000 MG in sodium chloride 0.9% (plus) 50 ML 100 MG IV (14:39)
--- NOTE | 2020-04-20 14:48 | PC.NURSE ---
20 Gauge IV started in Left AC for home IV antibiotics.
--- NOTE | 2020-04-20 16:11 | PC.NURSE ---
Faxed SB[facility] to [facility]
--- NOTE | 2020-04-20 17:50 | PC.NURSE ---
patient taken to private vehicle via wheelchair. Discharge instructions given to patient's and daughter. patient's and daughter verbalized understanding of instructions.
--- NOTE | 2020-04-21 14:55 | PC.SOCIAL ---
Post D/C phone call: Received a call from Yoly at [facility] that they are out at patient's home and he does not have an IV in the left AC space. According to documentation by JC Charles, patient left [facility] with 20 G IV in the left AC. There is no further documentation stating that this IV was discontinued. Yoly states she is going to call Dr. Montoya with further orders.
--- NOTE | 2020-04-21 16:03 | PC.SOCIAL ---
Spoke with Yoly with [facility] again who states they cannot get a peripheral IV in the home. Spoke with Dr. Montoya who gives V/O for Rocephin 2gm IM q24h for 7 days. RBVO. Called Mignon, pharmacist with [facility] and gave the V/O to her. She states they will get this delivery expedited. Called Yoly back and let her know the above information and provided her with the phone number to [facility] if she has any other questions/concerns.
== END 2020-04-20 17:52 | disposition home health service (06) | DRG 871 ==
LOC: ER 21:47 → MEDSURG 23:26
PROVIDERS: Family Medicine; Admitting Provider Internal Medicine; PCP Nurse Practitioner Family; Visit Provider Internal Medicine
DX: A40.9 Streptococcal sepsis, unspecified (principal); G93.41 Metabolic encephalopathy; I48.19 Other persistent atrial fibrillation; I13.0 Hypertensive heart and chronic kidney disease with heart failure and stage 1 through stage 4 chronic kidney disease, or unspecified chronic kidney disease; I50.22 Chronic systolic (congestive) heart failure; R18.8 Other ascites; N17.9 Acute kidney failure, unspecified; K80.10 Calculus of gallbladder with chronic cholecystitis without obstruction; E87.1 Hypo-osmolality and hyponatremia; N40.1 Benign prostatic hyperplasia with lower urinary tract symptoms; R33.8 Other retention of urine; I25.10 Atherosclerotic heart disease of native coronary artery without angina pectoris; Z95.1 Presence of aortocoronary bypass graft; Z95.810 Presence of automatic (implantable) cardiac defibrillator; I65.23 Occlusion and stenosis of bilateral carotid arteries; N18.9 Chronic kidney disease, unspecified; E78.5 Hyperlipidemia, unspecified; I25.5 Ischemic cardiomyopathy; I27.20 Pulmonary hypertension, unspecified; Z95.3 Presence of xenogenic heart valve; E03.9 Hypothyroidism, unspecified; I95.9 Hypotension, unspecified; Z79.891 Long term (current) use of opiate analgesic; Z79.02 Long term (current) use of antithrombotics/antiplatelets; F03.90 Unspecified dementia, unspecified severity, without behavioral disturbance, psychotic disturbance, mood disturbance, and anxiety; D50.9 Iron deficiency anemia, unspecified; I34.0 Nonrheumatic mitral (valve) insufficiency
CPT/HCPCS: 12345; 36415; 70450; 71045; 74177; 76700; 76705; 78226; 80048; 80053; 80074; 80202; 81001; 82140; 82150; 82247; 82248; 82436; 82570; 82728; 83540; 83550; 83605; 83690; 83735; 83880; 83935; 84100; 84133; 84145; 84300; 84443; 85025; 85045; 85610; 85651; 85999; 86140; 87040; 87086; 87426; 87635; 93306; 93312; 93320; 93325; 97110; 97116; 97161; 99283; A9537; J0692; J0696; J2370; J2543; J2704; J3370; J7030; J7050; Q9967

== ENCOUNTER 2020-05-06 16:46 | Outpatient (CLI) | payer MEDICARE, BC, SELFPAY ==
[2020-05-06 17:22] LABS: Basophils # 0.1 10^3/uL (0.0-0.1); Basophils % 1.1 %; Eosinophils # 0.4 10^3/uL (0.0-0.8); Eosinophils % 4.5 %; Hematocrit 38.5 % (42.0-52.0); Hemoglobin 12.1 g/dL (11.7-16.6); Lymphocytes # 2.1 10^3/uL (0.8-4.8); Lymphocytes % 23.2 %; Mean Corpuscular HGB Conc 31.4 g/dL (30.0-36.0); Mean Corpuscular Hemoglobin 27.2 pg (28.0-34.0); Mean Corpuscular Volume 86.5 fL (80-94); Mean Platelet Volume 12.8 fL (7.4-10.4); Monocytes # 0.9 10^3/uL (0.2-0.9); Monocytes % 9.7 %; Neutrophils # 5.41 10^3/uL (1.8-7.7); Neutrophils % 60.8 %; Nucleated Red Blood Cells % 0 %; Platelet Count 245 10^3/cmm (130-400); Red Blood Count 4.45 10^6/uL (4.1-5.3); Red Cell Distribution Width 21.2 % (12.1-15.1); White Blood Count 8.9 10^3/uL (4.0-10.0)
[2020-05-06 17:59] LABS: Slide Review Slide Review Perform
[2020-05-06 18:02] LABS: Add RBC Morph Yes; Ovalocytes 1+; RBC Morph Comp No
[2020-05-06 18:03] LABS: Burr Cells 1+; Schistocytes Trace
== END 2020-05-06 16:47 | disposition home or self-care (01) ==
LOC: LAB 16:50
PROVIDERS: PCP Nurse Practitioner Family; Visit Provider Nurse Practitioner Family
DX: A40.8 Other streptococcal sepsis (principal)
CPT/HCPCS: 85025

== ENCOUNTER → 2020-06-30 14:13 | Outpatient (BNVA) | payer MEDICARE, BC, SELFPAY | PROVIDERS: PCP Nurse Practitioner Family; Visit Provider Nurse Practitioner Family | DX: R33.8 Other retention of urine (principal); R31.0 Gross hematuria; R82.71 Bacteriuria | CPT/HCPCS: 81003; 87086 ==

== ENCOUNTER → 2020-07-15 10:07 | Outpatient (BNVA) | payer MEDICARE, BC, SELFPAY | PROVIDERS: PCP Nurse Practitioner Family; Visit Provider Urology | DX: R82.71 Bacteriuria (principal); R33.9 Retention of urine, unspecified | CPT/HCPCS: 81003 ==

== ENCOUNTER → 2020-08-26 08:54 | Outpatient (BNVA) | payer MEDICARE, BC, SELFPAY | PROVIDERS: PCP Nurse Practitioner Family; Visit Provider Nurse Practitioner Family | DX: R33.9 Retention of urine, unspecified (principal); N50.89 Other specified disorders of the male genital organs; N47.1 Phimosis | CPT/HCPCS: 81003 ==

== ENCOUNTER → 2020-09-14 06:53 | Day surgery (SDC) | payer MEDICARE, BC, SELFPAY ==
[2020-09-14] VITALS (10 sets, daily range): BP systolic 99–141; BP diastolic 71–83; PULSE 59–64; RESP 18; TEMP 36.1–36.3; O2SAT 98–100
--- NOTE | 2020-09-14 08:04 | PC.NURSE ---
0800 Efe Coto APRN notified of Hg 7.1. Orders received to transfuse two units PRBC's instead of three and check H&H at the completion of the second unit. First unit transfusing without difficulty. No reaction noted.
[2020-09-14] MEDS: sodium chloride 0.9% (100 ml) 100 ML (12:06)
--- NOTE | 2020-09-14 12:44 | PC.NURSE ---
Second unit of PRBC's complete. No reaction noted. Lungs remain clear. H&H drawn and sent to lab.
[2020-09-14 12:53] LABS: Hematocrit 29.9 % (42.0-52.0); Hemoglobin 8.7 g/dL (11.7-16.6)
--- NOTE | 2020-09-14 13:19 | PC.NURSE ---
1305 Efe Coto notified of Hg 8.7 and Hct 29.9. Orders received to hold 3rd unit of PRBC's. I
== END ==
PROVIDERS: PCP Nurse Practitioner Family; Visit Provider Nurse Practitioner Family
DX: D64.9 Anemia, unspecified (principal)
CPT/HCPCS: 36415; 36430; 85014; 85018; 86850; 86900; 86920; P9016

== ENCOUNTER → 2020-09-21 09:25 | Day surgery (SDC) | payer MEDICARE, BC, SELFPAY ==
[2020-09-21 09:40] VITALS: BP 132/69; PULSE 63; RESP 18; TEMP 36.4; O2SAT 100; BMI 28.2
[2020-09-21] MEDS: iron sucrose 500 MG in sodium chloride 0.9% 250 ML 68.8 MG IV (10:15)
[2020-09-21 10:32] LABS: Basophils % 0.1 %; Eosinophils % 0.1 %; Hematocrit 33.1 % (42.0-52.0); Hemoglobin 9.2 g/dL (11.7-16.6); Lymphocytes # 0.6 10^3/uL (0.8-4.8); Lymphocytes % 4.8 %; Mean Corpuscular HGB Conc 27.8 g/dL (30.0-36.0); Mean Corpuscular Hemoglobin 23.8 pg (28.0-34.0); Mean Corpuscular Volume 85.8 fL (80-94); Monocytes # 0.7 10^3/uL (0.2-0.9); Monocytes % 5.3 %; Neutrophils # 11.79 10^3/uL (1.8-7.7); Neutrophils % 89.2 %; Nucleated Red Blood Cells % 0 %; Platelet Count 225 10^3/cmm (130-400); Red Blood Count 3.86 10^6/uL (4.1-5.3); Red Cell Distribution Width 22.1 % (12.1-15.1); White Blood Count 13.2 10^3/uL (4.0-10.0)
== END ==
PROVIDERS: Internal Medicine Hematology & Oncology; PCP Nurse Practitioner Family; Visit Provider Nurse Practitioner Family
DX: D50.9 Iron deficiency anemia, unspecified (principal); R19.5 Other fecal abnormalities; R60.1 Generalized edema; Z79.01 Long term (current) use of anticoagulants; Z79.52 Long term (current) use of systemic steroids
CPT/HCPCS: 36415; 85025; 96365; 96366; 99214; J1756; J7050

== ENCOUNTER 2020-09-21 14:23 | Outpatient (CLI) | payer MEDICARE, BC, SELFPAY ==
--- NOTE | 2020-09-21 16:16 | ONC FU_ITS ---
Dr. Finch follow up note Patient: Tank Saavedra Unit #: [id number]: [id number] Dicatated By: Saurabh Finch M.D.Date of Visit:Sep 21, 2020 Onc Med Follow-up/Prog Note History of Present Illness: Mr. Tank Saavedra, is a 84-year-old gentleman with history of hypothyroidism, congestive heart failure, atrial fibrillation, essential hypertension, found to have 'swollen 'lymph node for which he underwent whole blood flow cytometry on 12/12/2018 which showed mildly expanded population of myeloblasts and basophils, suggestive of myelodysplastic syndrome or myeloproliferative disorder. Patient denies any history of anemia, patient denies any history of night sweats or weight loss, patient denies any history of recurrent fever Patient denies any history of abdominal fullness Repeat flow cytometry done on 05/14/2019 showed no aberrant myeloid or lymphoid population detected And CBC Checked on 06/11/2019 was also within normal range Came for follow-up, as per family patient was admitted to hospital in February 2020 with sepsis and treated with antibiotics and and also diagnosed with enlarged prostate gland causing obstruction so patient was using cath radiation as per he was given oral antibiotic by Dr. Young and after that he developed whole body swelling but no choking sensation no dysphagia or shortness of breath and antibiotic was stopped, but whole-body swelling improved but persistent on the left side also had abdominal distention, now PMD is evaluating him, scheduled for abdominal sonogram and to rule out ascites and also being referred to cardiology to assess cardiac function and last week patient was admitted to hospital with severe anemia and he was given 2 units of packed RBC for hemoglobin down to 6.4 g was also started on prednisone tapering dose for presumed hemolytic anemia and stool for occult bleeding was positive and the parenteral iron was recommended and is he received 1 dose of Venofer today and then awaiting for second dose now. Overall feeling better denies any fever or chills denies any nausea or vomiting denies any hemoptysis or hematemesis denies any dysphagia or choking sensation denies any nosebleed or gum bleed denies any jaundice denies any stool or urine color changes but he is on oral iron causing constipation and abdominal discomfort., As per patient and last colonoscopy was done about 10 years ago. Patient tolerated dose of Venofer well. And now tolerating tapering dose of prednisone prescribed by PMD. Medications: amLODIPine Besylate 0.5 Tablet (of 5 mg) Oral b.i.d., Atorvastatin Calcium 1 Tablet (of 40 mg) Oral daily, Carvedilol 1 Tablet (of 25 mg) Oral b.i.d., Cetirizine HCl 1 Tablet (of 10 mg) Oral daily, Cholecalciferol 1 Tablet (of 1000 Units) Oral daily, Clopidogrel Bisulfate 1 Tablet (of 75 mg) Oral daily, Fish Oil 2 Capsule (of 500 mg) Oral daily, Furosemide 1 Tablet (of 40 mg) Oral b.i.d., Levothyroxine Sodium 1 Tablet (of 137 mcg) Oral daily, Lisinopril 1 Tablet (of 20 mg) Oral b.i.d., Lycopene 1 Capsule (of 10 mg) Oral daily, Potassium Chloride ER 1 Tablet (of 10 meq) Tablet, controlled release Oral b.i.d., Pradaxa 1 Capsule (of 75 mg) Oral daily Allergies: Levaquin, Niaspan, and Tricor. Review of Systems: Review of Systems is not available for this patient. Vital Signs: Performed on Sep 21, 2020 15:27 Height - 69.00 in Weight - 198 lbs (HIGH) BSA - 2.06 sq.m BMI - 29.24 Temperature - 98.0 F (LOW) Pulse - 69 /min Respiration - 18 /min BP - 160/83 mm(hg) (HIGH) O2 Sat - 100 % Pain - 0 Fatigue - 0 Performance Status: 2 - Ambulatory/capable of all self-care, unable to perform any work activities. Up and about more than 50% of waking hours. (ECOG) Physical Examination: ENMT - no mouth sores, no jaundice, no thrush, Respiratory - Few basilar rales otherwise clear, Cardiovascular - Regular rate and rhythm of heart, Abdomen - Soft, bowel sounds present but distended, nontender, Extremities - 2+ edema bilaterally involving lower extremities and 1+ edema involving left hand and forearm. Lab/Imaging: Test performed on Sep 21, 2020 14:33 WBC 13.2 10^3/uL RBC 3.86 10^6/uL HGB 9.2 g/dL HCT 33.1 % MCV 85.5 fl MCH 23.8 pg MCHC 27.8 g/dL RDW 22.1 % Platelet Count 225 10^3/uL MPV 12.0 fl Neutrophils 89.2 10^3/uL Lymphocytes 4.8 10^3/uL Monocytes 5.3 10^3/uL Eosinophils 0.1 10^3/uL Basophils 0.1 10^3/uL Neutrophil % 11.79 % Lymphocyte % 0.6 % Monocyte % 0.7 % Eosinophil % 0.0 % Basophils % 0.0 % NRBC 0.0 /100 WBC NRBC % 0 % Test performed on Sep 12, 2020 12:52 % Iron Saturation 7.14 % Iron, Total 25 mcg/dL TIBC 350 mcg/dL [place] / Lambda Ratio 1.36 Absolute Value Lambda Light Chain 67.53 [place] Light Chain 92.01 Test performed on May 06, 2020 14:32 Manual Lymphocytes 23.2 % Manual Monocytes 9.7 % Manual Eosinophils 4.5 % Manual Basophils 1.1 % Impression: Iron deficiency anemia, etiology probably due to chronic GI blood loss patient is on anticoagulation and with stool positive for occult bleeding status post 2 units of packed RBCs has labs done on September 12, 2021 showed hemoglobin 6.6 g hematocrit 23.8 MCV 80.4 white blood count 10.9 platelets 334,000 and iron studies shows iron 25, iron saturation 7.14 TIBC 350, Status post 1 dose of Venofer on September 21, 2020 Abnormal whole blood flow cytometry done for' swollen' lymph node on 12/12/2018 which showed mildly expanded population of myeloblasts and basophils, suggestive of myelodysplastic syndrome or myeloproliferative disorder. CBC done on 12/12/2018 showed white blood count 9 hemoglobin 13.9 crit 42.5 MCV 89.5 platelets 188,000 neutrophil 68.2% lymphocytes 15.4% monocytes 11.6% Repeat whole blood flow cytometry done on 05/14/2019 showed no aberrant myeloid or lymphoid population detected Folic acid 15.1 white him and B12 329 normal being [id number] Plan: . Discussed with patient regarding his labs white blood count 13.2 hemoglobin 9.2 hematocrit 33.1 platelets 225,000 MCV 85.5 Clinically, patient is doing reasonably well, felt better after 2 units of packed RBC given last week for severe anemia, his stools were positive for occult bleeding, his anemia work-up showed iron deficiency for which she received Venofer today prescribed by PMD and awaiting second dose patient is also on oral iron causing indigestion and constipation. As patient is receiving, parenteral iron, will discontinue oral iron. Patient is on tapering dose of prednisone for resumed hemolytic anemia, will monitor He will return to clinic in 2 weeks with CBC and iron studies at that time we will also consider referring him to GI for EGD and colonoscopy if inconclusive, will consider capsule endoscopy to rule out small bowel AVMs causing GI bleeding thus iron deficiency anemia, Patient is on anticoagulation As far as generalized edema is concerned, work-up is in progress, patient is scheduled for abdominal sonogram and cardiac evaluation.Patient is on diuretics Signed By: Saurabh Finch M.D. <<Signature on File>>
== END 2020-09-21 14:24 | disposition home or self-care (01) ==
PROVIDERS: PCP Nurse Practitioner Family; Visit Provider Internal Medicine Hematology & Oncology
DX: D50.9 Iron deficiency anemia, unspecified (principal); R19.5 Other fecal abnormalities; R60.1 Generalized edema; Z79.01 Long term (current) use of anticoagulants; Z79.52 Long term (current) use of systemic steroids
CPT/HCPCS: 99214

== ENCOUNTER 2020-09-22 12:39 | Outpatient (CLI) | payer MEDICARE, BC, SELFPAY ==
--- NOTE | 2020-09-22 12:56 | XR_ITS ---
WS: [id number] PROCEDURE: XR chest 2V* [id number] CLINICAL INFORMATION: SHORTNESS OF BREATH COMPARISON: April 14, 2020 FINDINGS: Heart: Cardiomegaly. Sternotomy. Coronary Bypass graft. AICD. Lungs: Chronic emphysematous changes. Small pleural effusion appears new from previous. Slight left b asilar atelectasis. Bones: Moderate thoracic kyphosis. Anterior hypertrophic changes thoracic spine. XR/XR chest 2V* [id number] IMPRESSION: 1. Hepatomegaly with sternotomy and coronary artery bypass graft. AICD. 2. Small left pleural effusion with left basilar atelectasis. Recommend correl ation for left lower lobe pneumonia. 3. Chronic emphysematous changes.
== END 2020-09-22 12:40 | disposition home or self-care (01) ==
PROVIDERS: PCP Nurse Practitioner Family; Visit Provider Family Medicine
DX: R06.02 Shortness of breath (principal); R16.0 Hepatomegaly, not elsewhere classified; J90 Pleural effusion, not elsewhere classified; J98.11 Atelectasis
CPT/HCPCS: 71046

== ENCOUNTER 2020-09-27 06:51 | Outpatient (CLI) | payer MEDICARE, BC, SELFPAY ==
--- NOTE | 2020-09-27 07:04 | US_ITS ---
WS: [id number] ULTRASOUND ABDOMEN CLINICAL INFORMATION: ANASARCA COMPARISON: None. FINDINGS: Liver Size: Upper limits of normal Craniocaudal length: 15.6 cm. Echogenicity: Coarse Surface nodularity: None. Mass (size and location): None. Bidirectional flow in the main portal vein Bile ducts Intrahepatic ducts: Normal. Common bile duct diameter: 0.3 cm. Gallbladder Cholelithiasis Gallstones: Present Gallbladder sludge: None. Gallbladder wall thickening: Present Pericholecystic fluid: None. Sonographic Cooper sign: Absent. Pancreas Not well seen due to bowel gas Spleen Splenomegaly: Present Craniocaudal length: 13.0 cm. Right kidney: Multiple simple renal cysts. Hydronephrosis: None. Size: 10.7 cm x 5.5 cm x 3.4 cm Left kidney: Large left lower pole renal cyst measuring 7.2x 8.4x7.5 cm Hydronephrosis: None. Size: 11.7 cm x 6.3 cm x 4.8 cm. Abdominal aorta and IVC Visualized portions are normal. Small bilateral pleural effusions. Mild ascites. US/US abdomen complete* [id number] IMPRESSION: 1. Diffuse fatty infiltration of the liver. Liver size upper limits of normal. Bidirectional flow in the main portal vein suggesting portal hypertension 2. Splenomegaly. 3. Cholelithiasis. Normal common bile duct. 4. Bilateral renal cysts largest in the left. 5. Small bilateral pleural effusions with mild ascites.
--- NOTE | 2020-09-27 07:05 | US_ITS ---
WS: [id number] INDICATION: Anasarca TECHNIQUE: Ultrasound pelvis limited FINDINGS: Urine distended bladder. Patient with no urge to void. Bladder volume 642 cc. Diffuse bladd er wall thickening. Enlarged prostate measuring 4.3 x 5.3 x 4.1 cm. Mild ascites. US/US pelvic limited [id number] IMPRESSION: 1. Urine distended bladder. Patient with no urge to void. 2. Enlarged prostate. 3. Mild ascites.
== END 2020-09-27 06:52 | disposition home or self-care (01) ==
LOC: RAD 06:55
PROVIDERS: PCP Nurse Practitioner Family; Visit Provider Nurse Practitioner Family
DX: R18.8 Other ascites (principal); N32.89 Other specified disorders of bladder; N40.0 Benign prostatic hyperplasia without lower urinary tract symptoms; K76.0 Fatty (change of) liver, not elsewhere classified; R16.1 Splenomegaly, not elsewhere classified; K80.20 Calculus of gallbladder without cholecystitis without obstruction; Q61.02 Congenital multiple renal cysts; J90 Pleural effusion, not elsewhere classified
CPT/HCPCS: 76700; 76857

== ENCOUNTER → 2020-09-30 09:11 | Outpatient (BNVA) | payer MEDICARE, BC, SELFPAY | PROVIDERS: PCP Nurse Practitioner Family; Visit Provider Internal Medicine | DX: I25.5 Ischemic cardiomyopathy (principal); R06.00 Dyspnea, unspecified; I25.10 Atherosclerotic heart disease of native coronary artery without angina pectoris | CPT/HCPCS: 80053; 83735; 83880 ==

== ENCOUNTER → 2020-10-04 12:44 | Day surgery (SDC) | payer MEDICARE, BC, SELFPAY ==
[2020-10-04 12:55] VITALS: BP 141/76; PULSE 60; RESP 18; TEMP 36.1; O2SAT 99; BMI 26.9
[2020-10-04] MEDS: iron sucrose 500 MG in sodium chloride 0.9% 250 ML 68.8 MG IV (13:03)
== END ==
PROVIDERS: PCP Nurse Practitioner Family; Visit Provider Nurse Practitioner Family
DX: D50.9 Iron deficiency anemia, unspecified (principal)
CPT/HCPCS: 96365; 96366; J1756; J7050

== ENCOUNTER 2020-10-05 07:17 | Outpatient (CLI) | payer MEDICARE, BC, SELFPAY ==
[2020-10-05 10:08] LABS: Alanine Aminotransferase 122 U/L (0-41); Albumin Level 3.7 g/dL (3.5-5.2); Alkaline Phosphatase 217 IU/L (40-130); Anion Gap 11.5 (5-19); Aspartate Amino Transferase 109 U/L (0-40); Blood Urea Nitrogen 31 mg/dL (8-23); Calcium 8.4 mg/dL (8.5-10.5); Carbon Dioxide 28 mmol/L (22-29); Chloride 102 mmol/L (98-107); Globulin 2.4 g/dL (1.3-4.6); Glucose 94 mg/dL (65-115); Iron 302 ug/dL (59-158); Osmolality Calculated 290 mOsm/kg (285-295); Potassium 4.5 mmol/L (3.5-5.1); Sodium 137 mmol/L (136-145); Total Bilirubin 1.8 mg/dL (0.15-1.2); Total Protein 6.1 g/dL (6.6-8.7)
[2020-10-05 10:22] LABS: Vitamin B12 508 pg/mL (232-1245)
[2020-10-05 10:40] LABS: Unsaturated Iron Binding < 17 ug/dL (112-347)
[2020-10-05 10:50] LABS: Basophils % 0.3 %; Eosinophils # 0.1 10^3/uL (0.0-0.8); Hematocrit 39.2 % (42.0-52.0); Hemoglobin 11.2 g/dL (11.7-16.6); Lymphocytes # 0.8 10^3/uL (0.8-4.8); Lymphocytes % 9.8 %; Mean Corpuscular HGB Conc 28.6 g/dL (30.0-36.0); Mean Corpuscular Hemoglobin 25.7 pg (28.0-34.0); Mean Corpuscular Volume 89.9 fL (80-94); Monocytes # 0.5 10^3/uL (0.2-0.9); Monocytes % 6.4 %; Neutrophils # 6.28 10^3/uL (1.8-7.7); Neutrophils % 82.1 %; Nucleated Red Blood Cells % 0 %; Platelet Count 94 10^3/cmm (130-400); Red Blood Count 4.36 10^6/uL (4.1-5.3); Red Cell Distribution Width 25.2 % (12.1-15.1); White Blood Count 7.7 10^3/uL (4.0-10.0)
[2020-10-05 10:52] LABS: Reticulocyte % 1.9 % (0.5-2.0); Slide Review Slide Review Perform
--- NOTE | 2020-10-16 13:44 | ONC FU_ITS ---
Essie [facility] Patient Note Patient: Tank Saavedra Unit #: [id number]: 1935 Dictated By: Víctor HarveyDate of Visit: Oct 05, 2020 Onc MED Follow-Up/Prog Note Chief Complaint: Abnormal whole blood flow cytometry showing mildly expanded population of myeloblasts and basophils History of Present Illness: Mr. Saavedra is an 84-year-old gentleman with history of hypothyroidism, congestive heart failure, atrial fibrillation and essential hypertension. He found to have a 'swollen 'lymph node for which he underwent whole blood flow cytometry on 12/12/2018. The results reported mildly expanded population of myeloblasts and basophils, suggestive of myelodysplastic syndrome or myeloproliferative disorder. Patient denied any history of anemia, night sweats or weight loss, recurrent fever or abdominal fullness. Repeat flow cytometry done on 05/14/2019 showed no aberrant myeloid or lymphoid population detected And CBC Checked on 06/11/2019 was also within normal range. Mr. Saavedra is followed by Dr. Finch and was seen on 09/21/2020 for followup. His family reported that he was admitted to hospital in February 2020 with sepsis and treated with antibiotics. Mr. Saavedra was also diagnosed with enlarged prostate gland causing obstruction. He was using self catheterization as per he was given an oral antibiotic for prophylaxis by Dr. Young. However after starting it, he developed whole body swelling but no choking sensation no dysphagia or shortness of breath and antibiotic was stopped. Unfortunately the whole-body swelling improved but persistent on the left side also had abdominal distention. This is being addressed by his now PCP and he has been scheduled for abdominal sonogram to rule out ascites and also being referred to cardiology to assess cardiac function. Mr Saavedra was sent to outpatient department on September 14, 2020 with severe anemia and he was given 2 units of packed RBC for hemoglobin down to 6.4 g. He was also started on prednisone tapering dose for presumed hemolytic anemia. Stool for occult blood was positive. He was found to have iron deficiency on September 11, [address] Gambino's office. At that time his iron saturation was 7.14% and his iron level was 25. It was arranged for him to have 2 units of Injectafer. His first dose was on 09/21/2020 the second dose was on October 04, 2020. He is also scheduled for colonoscopy later this month with Dr. Littlejohn. Mr. Saavedra is here today for follow-up. He states overall he feels okay. He states that he has had some swelling in his left arm from his elbow down. This is being followed by Dr. Gambino's office as well. The family is concerned that there was documentation when he came home from the hospital sometime back that he had a PICC line however they never knew that he had a PICC line. They were concerned that it was possible he could have pulled it out and there still be debris there. It is notably swollen from his elbow down on the left side. He has a good pulse. He is scheduled for ultrasound on his arm on October 17. The arm is warm and nontender. There is no evidence of cellulitis at this time. He denies any fever or chills. He states his appetite is good. He denies any new concerns. He states he remains short of breath but states is no worse. He states it may be some better overall. He denies any chest pain or palpitations. He has had no nausea or vomiting. He denies any diarrhea or constipation. He has trace swelling in his lower extremities but states this is normal for him. His ECOG is 2. Past Medical History: Aortic stenosis Atrial fibrillation Cervical sponylarthitis Congestive heart failure Coronary artery disease Hyperlipidemia Hypertension Hypothyroidism Osteoarthritis Osteoporosis Past Surgical History: Cataract excision Coronary artery bypass Pacemaker placement Colonoscopy in 2012 Allergies: Levaquin, Niaspan, and Tricor. Medications: amLODIPine Besylate 0.5 Tablet (of 5 mg) Oral b.i.d. Atorvastatin Calcium 1 Tablet (of 40 mg) Oral daily Carvedilol 1 Tablet (of 25 mg) Oral b.i.d. Cetirizine HCl 1 Tablet (of 10 mg) Oral daily Cholecalciferol 1 Tablet (of 1000 Units) Oral daily Clopidogrel Bisulfate 1 Tablet (of 75 mg) Oral daily [facility] Nasal Allergy [place] Aerosol Nasal Fish Oil 2 Capsule (of 500 mg) Oral daily Furosemide 1 Tablet (of 40 mg) Oral t.i.d. Levothyroxine Sodium 1 Tablet (of 150 mcg) Oral daily Lisinopril 1 Tablet (of 20 mg) Oral b.i.d. Lycopene 1 Capsule (of 10 mg) Oral daily Nitrostat 1 Tablet (of 0.4 mg) Tablet, sublingual Sublingual daily PRN Potassium Chloride ER 1 Tablet (of 20 meq) Tablet, controlled release Oral b.i.d. Pradaxa 1 Capsule (of 75 mg) Oral daily predniSONE 2 Tablet (of 10 mg) Oral daily Spironolactone 1 Tablet (of 25 mg) Oral daily Family History: Mr. Saavedra's mother at age 81: Alzheimer's Disease. Mr. Saavedra's father at age 67: stroke, and heart disease, and myocardial infarction. Social History: Mr. Saavedra is and he is retired. Mr. Saavedra has never smoked. He has no history of drinking. Mr. Saavedra reports the following support systems: lives with spouse, significant other, family, or friends, lives in own house, supportive family/friends willing to assist with needs, and adequate transportation available for expected visits. His diet consists of regular meals. He indicates his activity level as: occasional exercise. Review Of Symptoms: Vital Signs: Performed on Oct 05, 2020 11:22 Height - 69.00 in Weight - 98.7 lbs (LOW) BSA - 1.53 sq.m BMI - 14.58 (LOW) Temperature - 98.6 F Pulse - 62 /min Respiration - 18 /min BP - 121/76 mm(hg) O2 Sat - 98 % Pain - 0,2 - Ambulatory/capable of all self-care, unable to perform any work activities. Up and about more than 50% of waking hours. (ECOG) Physical Examination: Constitutional Alert, oriented, no acute distress. Skin pink, warm and dry. Head Normocephalic; atraumatic. Eyes Conjunctivae and sclerae are clear and without icterus. Pupils are reactive and equal. Neck Supple without masses or thyromegaly. No jugular venous distension. Respiratory Lungs are clear to auscultation without rhonchi or wheezing. Cardiovascular Regular rate and rhythm of heart without murmurs,clicks, gallops or rubs. Abdomen Non-tender, non-distended, no masses or ascites. Good bowel sounds noted in all quads. No guarding or rebound tenderness. No pulsatile masses. Back/Spine Non-tender to palpation. Extremities No visible deformities, no cyanosis, clubbing or edema. Musculoskeletal No tenderness or swelling, normal range of motion without obvious weakness. Integumentary No rashes or lesions. Psychiatric Alert and oriented times three. Coherent speech. Verbalizes understanding of our discussions today. Laboratory:Test performed on Oct 05, 2020 09:10 Retic Count % 1.9 % WBC 7.7 10 3/uL RBC 4.36 10 6/uL HGB 11.2 g/dL HCT 39.2 % MCV 89.9 fL MCH 25.7 pg MCHC 28.6 g/dL RDW 25.2 % Platelet Count 94 10 3/cmm Neutrophils 6.28 10 3/uL Lymphocytes 0.8 10 3/uL Monocytes 0.5 10 3/uL Eosinophils 0.1 10 3/uL Basophils 0.0 10 3/uL Neutrophil % 82.1 % Lymphocyte % 9.8 % Monocyte % 6.4 % Eosinophil % 1.0 % Basophils % 0.3 % NRBC % 0 % CBC Slide Review Slide Review Perform Test performed on Sep 21, 2020 14:33 MPV 12.0 fl NRBC 0.0 /100 WBC Test performed on Sep 12, 2020 12:52 % Iron Saturation 7.14 % Iron, Total 25 mcg/dL TIBC 350 mcg/dL [place] / Lambda Ratio 1.36 Absolute Value Lambda Light Chain 67.53 [place] Light Chain 92.01 Test performed on May 06, 2020 14:32 Manual Lymphocytes 23.2 % Manual Monocytes 9.7 % Manual Eosinophils 4.5 % Manual Basophils 1.1 % Impression: Iron deficiency anemia, etiology probably due to chronic GI blood loss patient is on anticoagulation and with stool positive for occult bleeding status post 2 units of packed RBCs has labs done on September 12, 2021 showed hemoglobin 6.6 g hematocrit 23.8 MCV 80.4 white blood count 10.9 platelets 334,000 and iron studies shows iron 25, iron saturation 7.14 TIBC 350, Status post 1 dose of Venofer on September 21, 2020 Abnormal whole blood flow cytometry done for' swollen' lymph node on 12/12/2018 which showed mildly expanded population of myeloblasts and basophils, suggestive of myelodysplastic syndrome or myeloproliferative disorder. CBC done on 12/12/2018 showed white blood count 9 hemoglobin 13.9 crit 42.5 MCV 89.5 platelets 188,000 neutrophil 68.2% lymphocytes 15.4% monocytes 11.6% Repeat whole blood flow cytometry done on 05/14/2019 showed no aberrant myeloid or lymphoid population detected Folic acid 15.1 white him and B12 329 normal being [phone] Plan: PROBLEMS ADDRESSED TODAY 1. Iron deficiency anemia A. Status post 2 units of Injectafer received on September 21, 2020 and again on October 04, 2020. B. Today's labs reviewed in detail discussed with Mr. Mrs. Saavedra and a copy was given to them. WBC 7.7, hemoglobin 11.2, platelets 94,000 ANC is 6280. Potassium 4.5 random 1.2 random glucose 94 his total bilirubin is 1.8 ALT is 122 AST is 109 and alk phos is 217. His iron level today is 302. His iron sat is 94%. His B12 is 508. Retic count is 1.9. C. He is recovered well from his recent transfusion and Injectafer. His hemoglobin is 11.2. 2. Suspected hemolytic anemia A. He is currently on prednisone 1 tablet daily. Mrs. Saavedra thinks it is a 10 mg tablet. B. He will continue this for 7 more days and then start to wean to half tablet daily until his next CBC check. 3. Stool occult blood positive A. He is currently scheduled for colonoscopy and possible EGD with Dr. Littlejohn later this month. B. Dr Finch suggested that if the EGD and colonoscopy are inconclusive, will consider capsule endoscopy to rule out small bowel AVMs causing GI bleeding thus iron deficiency anemia. 4. Elevated LFTs A. Reviewing his labs in [employer] it was discovered that he has had elevated LFTs recently in cardiology. B. After reviewing his labs and presentation with Dr. Finch, it was felt these labs could be due to congestive heart failure or other cardiac concerns. His total bilirubin on 09/30/[address] Ortiz's lab request was 2.2 AST was 91 ALT was 109 and NT pro BNP was 2615. His alk phos was 217. We will plan to recheck his labs after his cardiology follow-up. 5. Follow-up plan A. We will plan to see him back in 1 month after he has had time to do all of his GI work-up and cardiac work-up. B. We will have him return with CBC CMP, iron studies and ferritin and serum free light chain assay. C. and Mrs. Saavedra were encouraged to contact us in interim should questions or problems arise. Signed By: Víctor aHrvey-, AOCNP Saurabh Finch MD <<Signature on File>>
== END 2020-10-05 07:18 | disposition home or self-care (01) ==
LOC: ONCMED 07:23
PROVIDERS: PCP Nurse Practitioner Family; Visit Provider Nurse Practitioner
DX: D50.0 Iron deficiency anemia secondary to blood loss (chronic) (principal); D46.9 Myelodysplastic syndrome, unspecified; D47.1 Chronic myeloproliferative disease; Z79.899 Other long term (current) drug therapy
CPT/HCPCS: 36415; 80053; 82607; 83540; 83550; 85025; 85045; 99214

== ENCOUNTER → 2020-10-13 10:05 | Outpatient (BNVA) | payer MEDICARE, BC, SELFPAY | PROVIDERS: PCP Nurse Practitioner Family; Visit Provider Urology | DX: R33.9 Retention of urine, unspecified (principal) | CPT/HCPCS: 81003 ==

== ENCOUNTER 2020-10-17 14:44 | Outpatient (CLI) | payer MEDICARE, BC, SELFPAY ==
--- NOTE | 2020-10-17 14:51 | USCV_ITS ---
Tank Saavedra Age: 85 Gender: M : 1935 Exam Date: 10/17/2020 15:00 Ordering Phys: Clive Gambino MD Technologist: Valerie Encinas [place] [facility] [place]: edema HISTORY: Upper extremity edema. PROCEDURES: Venous duplex imaging was performed in only the left upper extremity. The following venous structures were evaluated: internal jugular vein, subclavian vein, axillary vein, and brachial veins. In addition, the basilic vein, cephalic vein, radial vein, and ulnar vein. Serial compression, augmentation maneuvers, and spectral Doppler flow evaluation were performed. FINDINGS: Normal 2-D, color Doppler and phasicity noted in the left upper extremity venous system extending from the left internal jugular vein through the main forearm. No thrombosis or occlusion noted. CONCLUSIONS No left upper extremity DVT. Dr. Phyllis Connors DO (Electronically Signed) Final Date: 17 October 2020 16:03 S
--- NOTE | 2020-10-17 14:51 | USCV_ITS ---
Tank Saavedra Age: 85 Gender: M : 1935 Exam Date: 10/17/2020 15:08 Ordering Phys: Clive Gambino MD Technologist: Josee Sanchez [place] [facility] [place]: SOB BP: / HR: 59 Rhythm: Sinus Technical Quality: Adequate MEASUREMENTS (Male / Female) Normal Values 2D ECHO LV Diastolic Diameter PLAX 4.0 cm 4.2 - 5.9 / 3.9 - 5.3 cm LV Systolic Diameter PLAX 3.3 cm LV Chamber Size 4.1 cm IVS Diastolic Thickness 1.6 cm 0.6 - 1.0 / 0.6 - 0.9 cm IVS Systolic Thickness 1.8 cm LVPW Diastolic Thickness 1.5 cm 0.6 - 1.0 / 0.6 - 0.9 cm LVPW Systolic Thickness 1.8 cm RV Chamber Size 2.3 cm LVOT Diameter 2.1 cm LV Ejection Fraction 2D Teich 36.7 % LV Ejection Fraction MOD 2C 52.4 % LV Ejection Fraction 2C AL 51.5 % LA Diameter 5.1 cm LA Width 2.4 cm LA Height 5.1 cm RA Width 4.1 cm Aorta at Sinotubular Diameter 3.0 cm M-MODE LV Diastolic Diameter MM 5.3 cm 4.2 - 5.9 / 3.9 - 5.3 cm LV Systolic Diameter MM 3.7 cm LV Ejection Fraction MM Teich 57.4 % IVS Diastolic Thickness MM 1.2 cm 0.6 - 1.0 / 0.6 - 0.9 cm IVS Systolic Thickness MM 1.4 cm LVPW Diastolic Thickness MM 1.8 cm 0.6 - 1.0 / 0.6 - 0.9 cm LVPW Systolic Thickness MM 2.0 cm Aortic Annulus Diameter 3.1 cm LA Ao Ratio MM 2.0 MV E Point Septal Separation 1.3 cm DOPPLER AV Peak Velocity 149.0 cm/s LVOT Peak Velocity 52.0 cm/s AV Area Cont Eq vti 1.3 cm squared AV Area Cont Eq pk 1.2 cm squared MV Area PHT 2.7 cm squared MV E' Velocity 42.5 cm/s Mitral E to MV E' Ratio 14.8 Mitral E to LV E' Lateral Ratio 14.6 Mitral E to LV E' Septal Ratio 15.4 TR Peak Velocity 208.7 cm/s TR Peak Gradient 17.4 mmHg TR Mean Velocity 147.7 cm/s TR Mean Gradient 9.8 mmHg TR Velocity Time Integral 62.0 cm TV Peak E Velocity 87.0 cm/s Right Atrial Pressure 15.0 mmHg Pulmonary Artery Systolic Pressu 32.4 mmHg PV Peak Velocity 31.0 cm/s RV Acceleration Time 0.1 s RV Ejection Time 0.3 s RV AcT/ET 0.3 FINDINGS Left Ventricle Normal left ventricular cavity size. Increased left ventricular wall thickness. Moderate concentric left ventricular hypertrophy. Moderately decreased left ventricular systolic function. Left ventricular ejection fraction is estimated at 40 %. This study is inadequate for estimation of regional wall motion normality. Abnormal diastolic function. Right Ventricle Dilated right ventricle with somewhat decreased right ventricle systolic function. Pacemaker wire visualized in the right ventricle. Right ventricular systolic pressure 37 mmHg. Right Atrium Moderately increased right atrial size. Left Atrium Mildly increased left atrial size. Mitral Valve Mild mitral annular calcification. Moderately thickened mitral valve. No mitral valve stenosis. No significant mitral valve regurgitation. Aortic Valve TAVR prosthesis in situ well-seated and normal functioning. Peak velocity through aortic valve of 1.5 m/s, peak gradient 9 mmHg and mean gradient 5 mmHg. No significant valvular or perivalvular regurgitation noted on the study. Tricuspid Valve Tricuspid valve not well visualized. Moderate to severe tricuspid valve regurgitation. Pulmonic Valve Pulmonic valve not well visualized. No pulmonary valve stenosis. Mild pulmonary valve regurgitation. Pericardium No pericardial effusion. Aorta Aorta not well visualized. Probably dilated inferior vena cava. Inferior vena cava not well visualized. CONCLUSIONS 1. This is a technically difficult study. 2. Normal left ventricular cavity size. Moderate concentric left ventricular hypertrophy. Moderately decreased left ventricular systolic function. Left ventricular ejection fraction is estimated at 40 %. This study is inadequate for estimation of regional wall motion normality. Abnormal diastolic function. 3. Dilated right ventricle with somewhat decreased right ventricle systolic function. 4. Pulmonary artery pressure estimated at 37 mmHg. 5. Moderate to severe tricuspid valve regurgitation. Irma Granados MD (Electronically Signed) Final Date: 19 October 2020 09:38 S
== END 2020-10-17 14:45 | disposition home or self-care (01) ==
LOC: US 14:47
PROVIDERS: PCP Nurse Practitioner Family; Visit Provider Family Medicine
DX: R06.02 Shortness of breath (principal); R60.0 Localized edema; I07.1 Rheumatic tricuspid insufficiency
CPT/HCPCS: 87635; 93306; 93971

== ENCOUNTER 2020-10-20 08:41 | Day surgery (SDC) | payer MEDICARE, BC, SELFPAY ==
--- NOTE | 2020-10-04 13:21 | ANES.PREANE2 ---
Pre-Anesthetic Assessment Pre-Anesthetic Assessment: Height/Weight: Height 1.75 m Preop Diagnosis: chronic anemia Proposed Procedure: Operation Date: 10/20/20 10:00 Proposed Procedures p EGD 38326 [id number] d64.9(Not Applicable) - Waldemar Littlejohn MD s Colonoscopy(Not Applicable) - Waldemar Littlejohn MD Familial anesthetic complications: no issues Social: Social History: No alcohol and No tobacco Exam: Pre-Anes Outpt Exam: alert, oriented x 3 (confused.) and clear to auscultation bilaterally Additional Exam Findings (including area of procedure): dementia Airway: Submandibular: WNL Cervical ROM: WNL MP: 2 Dentition: False and Partials History/ROS: No significant history except as noted Pulmonary: Pulmonary: COPD, SOB and URI (just finished antibiotics 10/03/20 for small lower lobe pneumonia ) Comments: 2018 PFT Spirometry is normal. Lung volumes indicate air trapping. The diffusing capacity is moderately reduced. Clinical correlation is recommended. CV/HEM: CV/HEM: Afib, Anemia, Arrythmia (Sick Sinus Syndrome.), CAD, CHF, HTN, AR and PVD Comments: 4 Vessel CABG with Pacemaker- 2002 [place] Stents 2018 TAVR with Pacemaker and AICD- 2018 09/22/20 note from [facility] Normal left ventricular size and systolic function. Increased wall thickness, with diagnostic no regional wall motion abnormalities. Left ventricular ejection fraction is estimated at 55 %. Abnormal diastolic function. Normal right ventricular size and systolic function, RVSP 34.5 mmHg. TAVR valve in situ. Mean gradient 8.2 mmHg and peak velocity 2 m/s. When compared to previous study dated 12/03/2017, left ventricular systolic function has improved. : : Chronic renal Insufficiency Comments: followed by Dr. Young due to frequent urinary issues history of requiring catheterization post void. Hepatic: Comments: Fatty Liver, elevated liver enzymes and bilirubin. Abdominal US: 09/2020 Diffuse fatty infiltration of the liver. Liver size upper limits of normal. Bidirectional flow in the main portal vein suggesting portal hypertension 2. Splenomegaly. 3. Cholelithiasis. Normal common bile duct. 4. Bilateral renal cysts largest in the left. 5. Small bilateral pleural effusions with mild ascites. GI: GI: None reported Metabolic: Metabolic: Thyroid Comments: Thyroid removed. Musc/skel: Musc/skel: Weakness Comments: uses walker. Neuropsych: Neuropsych: Dementia Anesthetic Plan: ASA status: 4 Anesthesia: Anesthesia Evaluation and MAC Risk of > 500 ml blood loss (7ml/kg in children): No PFSH Anesthesia PFSH: Medical History (Updated 09/30/20 @ 16:54 by Waldemar Littlejohn MD) Anemia Aortic stenosis ASHD (arteriosclerotic heart disease) Atrial fibrillation Controlled Carotid stenosis, bilateral CKD (chronic kidney disease) Dyslipidemia HTN (hypertension) Hypothyroidism Ischemic cardiomyopathy Mitral regurgitation Phimosis Pulmonary HTN SSS (sick sinus syndrome) Urinary retention Surgical History (Updated 09/30/20 @ 10:49 by Waldemar Littlejohn MD) History of coronary artery stent placement S/P CABG (coronary artery bypass graft) S/P cataract extraction S/P hernia repair S/P ICD (internal cardiac defibrillator) procedure S/P TAVR (transcatheter aortic valve replacement) Status post colonoscopy Family History Mother , at age 82 CAD (coronary artery disease) Father , at age 69 Stroke Social History Smoking and tobacco status: never smoked Alcohol intake: never Adopted: No Caregiver/support person: No Lives independently: No Household members: spouse Marital status: Current occupational status: retired History of recent travel: No Data Anesthesia Cardiac Studies: No Data to Display
[2020-10-18 12:45] VITALS: BMI 23.0
--- NOTE | 2020-10-20 08:51 | ANES.PREANE2 ---
Pre-Anesthetic Assessment Pre-Anesthetic Assessment: Height/Weight: Height 1.75 m Weight 70.76 kg Preop Diagnosis: chronic anemia Proposed Procedure: Operation Date: 10/20/20 10:00 Proposed Procedures p EGD [id number] d64.9(Not Applicable) - Waldemar Littlejohn MD s Colonoscopy(Not Applicable) - Waldemar Littlejohn MD Familial anesthetic complications: None Was Beta Sea taken within 24 hours: Yes Last intake: plavix on saturday off pradaxa 5 days NPO > 8 hrs Social: Social History: No alcohol and No tobacco Exam: Pre-Anes Outpt Exam: alert, oriented x 3, clear to auscultation bilaterally and regular rate & rhythm Airway: Cervical ROM: WNL MP: 3 Dentition: False and Partials CV/HEM: CV/HEM: Afib, CAD and HTN Comments: CABG and stents in 2018, AVR replaced in 2018, pacemaker/defibrillator in 2018 Echo 2020 CONCLUSIONS 1. This is a technically difficult study. 2. Normal left ventricular cavity size. Moderate concentric left ventricular hypertrophy. Moderately decreased left ventricular systolic function. Left ventricular ejection fraction is estimated at 40 %. This study is inadequate for estimation of regional wall motion normality. Abnormal diastolic function. 3. Dilated right ventricle with somewhat decreased right ventricle systolic function. 4. Pulmonary artery pressure estimated at 37 mmHg. 5. Moderate to severe tricuspid valve regurgitation. : : Chronic renal Insufficiency Metabolic: Metabolic: Thyroid Anesthetic Plan: ASA status: 4 Anesthesia: MAC Risk of > 500 ml blood loss (7ml/kg in children): No PFSH Anesthesia PFSH: Medical History Anemia Aortic stenosis ASHD (arteriosclerotic heart disease) Atrial fibrillation Controlled Carotid stenosis, bilateral CKD (chronic kidney disease) Dyslipidemia HTN (hypertension) Hypothyroidism Ischemic cardiomyopathy Mitral regurgitation Phimosis Pulmonary HTN SSS (sick sinus syndrome) Urinary retention Surgical History History of coronary artery stent placement S/P CABG (coronary artery bypass graft) S/P cataract extraction S/P hernia repair S/P ICD (internal cardiac defibrillator) procedure S/P TAVR (transcatheter aortic valve replacement) Status post colonoscopy Family History Mother , at age 82 CAD (coronary artery disease) Father , at age 69 Stroke Social History Smoking and tobacco status: never smoked Alcohol intake: never Adopted: No Caregiver/support person: No Lives independently: No Household members: spouse Marital status: Current occupational status: retired History of recent travel: No Data Anesthesia Cardiac Studies: No Data to Display
[2020-10-20 09:35] VITALS: BP 145/88; PULSE 58; RESP 18; TEMP 36.1; O2SAT 98
[2020-10-20] MEDS: sodium chloride 0.9% 1,000 ML 30 ML IV (09:37)
--- NOTE | 2020-10-20 11:05 | W.PM.OPSUD ---
Surgery/Procedure H&P Update DATE OF PROCEDURE: October 20, 2020 DATE H&P PERFORMED: 09/30/20 H&P UPDATE INFORMATION: I have reviewed H&P completed within last 30 days, I have examined patient prior to procedure and No changes to prior documentation PREOP DIAGNOSIS: panendoscopy PLANNED PROCEDURE: Operation Date: 10/20/20 10:00 Proposed Procedures p EGD [id number] d64.9(Not Applicable) - Waldemar Littlejohn MD s Colonoscopy(Not Applicable) - Waldemar Littlejohn MD
[2020-10-20 11:54] VITALS: BP 127/86; PULSE 64; RESP 18; TEMP 36.2; O2SAT 95
--- NOTE | 2020-10-20 11:55 | ANE.PACU2 ---
Inpatient post-anesthesia follow up: Airway intact: Yes Vital signs: Temperature 97 F Pulse Rate 58 Respiratory Rate 18 Blood Pressure 145/88 Pulse Oximetry 98 Oxygen Delivery Me thod Room Air Oxygen Flow Rate Fraction of Inspir ed Oxygen Hydration adequate: Yes Nausea and vomiting: No Pain level: 1 Mental status: Baseline
[2020-10-20 12:08] VITALS: BP 107/84; PULSE 60; RESP 18; TEMP 36.1; O2SAT 96
== END 2020-10-20 12:26 | disposition home or self-care (01) ==
PROVIDERS: PCP Nurse Practitioner Family; Visit Provider Surgery
PROC: 0DJ08ZZ Inspection of Upper Intestinal Tract, Via Natural or Artificial Opening Endoscopic (ICD-10-PCS; CPT 43235; principal; 2020-10-20 10:00)
PROC: 0DJD8ZZ Inspection of Lower Intestinal Tract, Via Natural or Artificial Opening Endoscopic (ICD-10-PCS; CPT 45378; 2020-10-20 10:00)
DX: D64.9 Anemia, unspecified (principal); D12.3 Benign neoplasm of transverse colon; K57.30 Diverticulosis of large intestine without perforation or abscess without bleeding; K64.8 Other hemorrhoids; K29.80 Duodenitis without bleeding; I48.91 Unspecified atrial fibrillation; E03.9 Hypothyroidism, unspecified; I12.9 Hypertensive chronic kidney disease with stage 1 through stage 4 chronic kidney disease, or unspecified chronic kidney disease; N18.9 Chronic kidney disease, unspecified; Z95.1 Presence of aortocoronary bypass graft; Z82.49 Family history of ischemic heart disease and other diseases of the circulatory system; Z82.3 Family history of stroke; Z79.01 Long term (current) use of anticoagulants; J44.9 Chronic obstructive pulmonary disease, unspecified
CPT/HCPCS: 43235; 45380; 88305; 96360; 96361; J2370; J2704; J7030

== ENCOUNTER 2020-10-24 08:15 | Inpatient (IN) | payer MEDICARE, BC, SELFPAY ==
[2020-10-24] VITALS (32 sets, daily range): BP systolic 88–121; BP diastolic 39–75; PULSE 59–79; RESP 13–20; TEMP 35.2–37.1; O2SAT 96–100; BMI 24.3
--- NOTE | 2020-10-24 08:49 | CT_ITS ---
WS: [id number] CT ABDOMEN PELVIS TECHNIQUE: Contrast-enhanced CT of the abdomen and pelvis with coronal and sagittal reformatted image s. CLINICAL INFORMATION: abd pain COMPARISON: CT April 15, 2020 and ultrasound September 27, 2020 DLP: 1382.[address] scans at [facility] use at least one of these dose optimization techniques: automat ed exposure control; mA and/or kV adjustment per patient size (includes targeted exams where dose is matched to clinical indication); or iterative reconstruction. FINDINGS:Peripheral enhancing low-attenuation collection in the left buttocks musculature measuring 2 .5 x 6.6 x 6.2 CM. Recommend correlation for infection and abscess. Diffuse fatty infiltration of the liver. Gallbladder is contracted with chronic calcification unchang ed from previous. Normal portal vein and splenic vein. Fatty atrophy of the pancreas. Normal splenic enhancement. Normal GE junction. Bibasilar atelectasis. Adrenal glands are normal. Normal renal parenchymal enhancement. No hydronephrosis. Large left renal cyst measuring 7.6x8.2 cm unchanged. Normal caliber abdominal aorta. Dense aortic calcification. No a neurysm. Marked urinary distention of the bladder. Heterogeneous enhancing enlarged prostate unchanged from pr evious. Findings likely due to bladder outlet obstruction. Surgical clips left lower quadrant. No mariel dence of small or Large bowel obstruction. No free fluid in the abdomen or pelvis. Mild compression s uperior endplate L2 with sclerosis is new since April 15, [address]/CT abdomen pelvis w con* [id number] IMPRESSION: 1. Marked urinary distention of the bladder with heterogeneous enlarged prosta te likely bladder outlet obstruction. Recommend correlation PSA. 2. No evidence of small or large bowel obstruction. 3. Peripheral enhancing low-attenuation collection in the left buttocks muscul ature measuring 2.5 x 6.6 x 6.2 CM consistent with abscess. Recommend correlati on for infection 4. Diffuse fatty infiltration liver. 5. Large left renal cyst measuring 7.6 x 2.2 cm is unchanged. 6. Mild compression superior endplate L2 with sclerosis is new from March recommend correlation for low back pain. Attempted notification Jacek Turner DO at 10/24/2020 11:02 AM.
--- NOTE | 2020-10-24 08:52 | W.ED.GIBLEED ---
HPI - GI Bleed General: Chief complaint: GI Bleed Stated complaint: RECTAL BLEED Time Seen by Provider: 10/24/20 08:30 History of Present Illness: HPI Narrative: 85-year-old male presents to the emergency room with complaints of rectal bleeding. He has had several episodes of dark black tarry stools and some bright red blood per stool. He was previously on Pradaxa but it was stopped prior to his colonoscopy and has not been resumed. He had a colonoscopy for bloody stools and they were removed 3 polyps per the . He denies any chest pain denies any fever sweats or chills. He has had some shortness of breath with exertion. MD complaint: melena and blood streaked stool Onset (ago): day(s) Severity: mild Relieving factors: none Exacerbating factors: none Context: history of GI bleed Associated symptoms: Reports malaise, nausea and poor appetite; Denies abdominal pain, chills, easy bruising, epistaxis, fever(s), headache(s), other bleeding, rash, syncope, vomiting or weakness Treatments Prior to Arrival: none Review of Systems Const: Reports: malaise; Denies: fever(s) or chills ENMT: Denies: epistaxis Card: Denies: syncope Resp: Denies: dyspnea, productive cough or non-productive cough GI: Reports: nausea; Denies: abdominal pain or vomiting : Denies: flank pain, dysuria, urinary frequency or urinary urgency Skin/Breast: Denies: rash Neuro: Denies: headache(s) Bebeto/Lymph: Denies: easy bruising PFS ED PFSH: Medical History Anemia Aortic stenosis ASHD (arteriosclerotic heart disease) Atrial fibrillation Controlled Carotid stenosis, bilateral CKD (chronic kidney disease) Dyslipidemia HTN (hypertension) Hypothyroidism Ischemic cardiomyopathy Mitral regurgitation Phimosis Pulmonary HTN SSS (sick sinus syndrome) Urinary retention Surgical History H/O esophagogastroduodenoscopy (10/20/20) History of coronary artery stent placement S/P CABG (coronary artery bypass graft) S/P cataract extraction S/P hernia repair S/P ICD (internal cardiac defibrillator) procedure S/P TAVR (transcatheter aortic valve replacement) Status post colonoscopy (10/20/20) diverticulosis, polyps Family History Mother , at age 82 CAD (coronary artery disease) Father , at age 69 Stroke Social History Smoking and tobacco status: never smoked Alcohol intake: never Adopted: No Caregiver/support person: No Lives independently: No Household members: spouse Marital status: Current occupational status: retired History of recent travel: No Physical Exam Const: COMMON NORMALS: no acute distress GENERAL APPEARANCE: cooperative and comfortable ORIENTATION/CONSCIOUSNESS: Yes awake HENMT: COMMON NORMALS: normocephalic and atraumatic HEAD & SCALP: normocephalic and atraumatic Neck/C-Spine: COMMON NORMALS: no JVD Resp: COMMON NORMALS: normal respiratory effort, No retractions, No use of accessory muscles and clear to auscultation bilaterally AUSCULTATION: clear to auscultation bilaterally Cardio: COMMON NORMALS: no JVD, regular rate, regular rhythm and No murmurs present (Cardio) RATE: regular rate RHYTHM: regular rhythm GI: COMMON NORMALS: Soft to palpation and No hepatosplenomegaly present AUSCULTATION: Yes normoactive bowel sounds PALPATION: Yes Soft to palpation, No Tenderness to palpation present (GI), No Guarding due to palpation present (GI) and Yes No hepatosplenomegaly present Extremity: COMMON NORMALS: normal to inspection, capillary refill normal, no clubbing, cyanosis or edema, no calf tenderness and no pedal edema Skin: COMMON NORMALS: no rashes or lesions noted GENERAL SKIN EXAM: no rashes or lesions noted Course Vital Signs: Vital signs: Vital Signs Temperature 97.8 F 10/24/20 11:15 Pulse Rate 62 10/24/20 11:15 Respiratory Rate 13 10/24/20 11:15 Blood Pressure 117/53 10/24/20 11:15 Pulse Oximetry 98 10/24/20 11:00 MDM - GI Bleed MDM Narrative: Medical decision making narrative: Acute GI bleed likely from the colonoscopy has not restarted his Plavix or his Pradaxa. He also has some hyponatremia and mild acute kidney injury urinary retention and cystitis. All of these things have been addressed of discussed Dr. Edgar orders being written I also contacted Dr. Littlejohn to let him know patient will be admitted to the [facility] floor. Lab Data: Labs: Lab Results 10/24/20 10/24/20 10/24/20 Range/Units 09:15 09:15 09:15 WBC 12.7 H (4.0-10.0) 10^3/ uL RBC 2.36 L (4.1-5.3) 10^6/u L Hgb 6.4 L* (11.7-16.6) g/dL Hct 21.7 L (42.0-52.0) % MCV 91.9 (80-94) fL MCH 27.1 L (28.0-34.0) pg MCHC 29.5 L (30.0-36.0) g/dL RDW 24.3 H (12.1-15.1) % Plt Count 227 (130-400) 10^3/c mm MPV 12.5 H (7.4-10.4) fL Neut % (Auto) 74.7 % Lymph % (Auto) 10.8 % Meriwether % (Auto) 9.7 % Eos % (Auto) 0.2 % Baso % (Auto) 0.2 % Neut # (Auto) 9.49 H (1.8-7.7) 10^3/u L Lymph # (Auto) 1.4 (0.8-4.8) 10^3/u L Meriwether # (Auto) 1.2 H (0.2-0.9) 10^3/u L Eos # (Auto) 0.0 (0.0-0.8) 10^3/u L Baso # (Auto) 0.0 (0.0-0.1) 10^3/u L Nucleated RBC % (a uto) 0 % Nucleated RBCs # 0.0 /100WBC PT 18.60 H (12.1-14.9) SECO NDS INR 1.51 H (0.8-1.2) APTT 45.1 H (23.9-36.7) SECO NDS Sodium 129 L (136-145) mmol/L Potassium 5.0 (3.5-5.1) mmol/L Chloride 101 (98-107) mmol/L Carbon Dioxide 16 L (22-29) mmol/L Anion Gap 17.0 (5-19) BUN 53 H (8-23) mg/dL Creatinine 1.6 H (0.7-1.2) mg/dL GFR Calculation Not Reportable Glucose 113 (65-115) mg/dL Calculated Osmolal ity 283 L (285-295) mOsm/k g Calcium 7.4 L (8.5-10.5) mg/dL Total Bilirubin 0.9 (0.15-1.2) mg/dL AST 14 (0-40) U/L ALT 23 (0-41) U/L Alkaline Phosphata se 160 H (40-130) IU/L Total Protein 4.9 L (6.6-8.7) g/dL Albumin 2.9 L (3.5-5.2) g/dL Globulin 2.0 (1.3-4.6) g/dL Urine Color (Yellow) Urine Appearance (CLEAR) Urine pH (5-7) Ur Specific Gravit y (1.005-1.030) Urine Protein (Negative) Urine Glucose (UA) (Normal) Urine Ketones (Negative) Urine Blood (Negative) Urine Nitrate (Negative) Urine Bilirubin (Negative) Urine Urobilinogen (Negative) mg/dL Ur Leukocyte Luci ase (Negative) Urine RBC (0-2) /hpf Urine WBC (0-5) /hpf Ur Squamous Epith Cells (0-5) /hpf Amorphous Sediment Urine Bacteria (NONE) /hpf Urine Mucus /hpf Blood Type Rho(D) Type Antibody Screen Crossmatch 10/24/20 10/24/20 Range/Units 09:15 09:45 WBC (4.0-10.0) 10^3/ uL RBC (4.1-5.3) 10^6/u L Hgb (11.7-16.6) g/dL Hct (42.0-52.0) % MCV (80-94) fL MCH (28.0-34.0) pg MCHC (30.0-36.0) g/dL RDW (12.1-15.1) % Plt Count (130-400) 10^3/c mm MPV (7.4-10.4) fL Neut % (Auto) % Lymph % (Auto) % Meriwether % (Auto) % Eos % (Auto) % Baso % (Auto) % Neut # (Auto) (1.8-7.7) 10^3/u L Lymph # (Auto) (0.8-4.8) 10^3/u L Meriwether # (Auto) (0.2-0.9) 10^3/u L Eos # (Auto) (0.0-0.8) 10^3/u L Baso # (Auto) (0.0-0.1) 10^3/u L Nucleated RBC % (a uto) % Nucleated RBCs # /100WBC PT (12.1-14.9) SECO NDS INR (0.8-1.2) APTT (23.9-36.7) SECO NDS Sodium (136-145) mmol/L Potassium (3.5-5.1) mmol/L Chloride (98-107) mmol/L Carbon Dioxide (22-29) mmol/L Anion Gap (5-19) BUN (8-23) mg/dL Creatinine (0.7-1.2) mg/dL GFR Calculation Glucose (65-115) mg/dL Calculated Osmolal ity (285-295) mOsm/k g Calcium (8.5-10.5) mg/dL Total Bilirubin (0.15-1.2) mg/dL AST (0-40) U/L ALT (0-41) U/L Alkaline Phosphata se (40-130) IU/L Total Protein (6.6-8.7) g/dL Albumin (3.5-5.2) g/dL Globulin (1.3-4.6) g/dL Urine Color Yellow (Yellow) Urine Appearance Cloudy (CLEAR) Urine pH 5 (5-7) Ur Specific Gravit y 1.015 (1.005-1.030) Urine Protein Neg (Negative) Urine Glucose (UA) Norm (Normal) Urine Ketones Negative (Negative) Urine Blood Neg (Negative) Urine Nitrate Negative (Negative) Urine Bilirubin 1+ H (Negative) Urine Urobilinogen Norm (Negative) mg/dL Ur Leukocyte Luci ase 2+ H (Negative) Urine RBC 0-4 H (0-2) /hpf Urine WBC 80-100 H (0-5) /hpf Ur Squamous Epith Cells 0-4 H (0-5) /hpf Amorphous Sediment Not Reportable Urine Bacteria 3+ H (NONE) /hpf Urine Mucus 2+ /hpf Blood Type O Positive Rho(D) Type Positive / 4+ Antibody Screen Negative Crossmatch See Detail Discharge Plan Discharge Patient Disposition: Admitted As Inpatient Clinical Impression: Anemia, Acute urinary retention, Acute lower GI bleeding, Acute kidney injury, Acute cystitis Condition: Stable Coding 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
[2020-10-24 09:28] LABS: Basophils % 0.2 %; Eosinophils % 0.2 %; Hematocrit 21.7 % (42.0-52.0); Lymphocytes # 1.4 10^3/uL (0.8-4.8); Lymphocytes % 10.8 %; Mean Corpuscular HGB Conc 29.5 g/dL (30.0-36.0); Mean Corpuscular Hemoglobin 27.1 pg (28.0-34.0); Mean Corpuscular Volume 91.9 fL (80-94); Mean Platelet Volume 12.5 fL (7.4-10.4); Monocytes # 1.2 10^3/uL (0.2-0.9); Monocytes % 9.7 %; Neutrophils # 9.49 10^3/uL (1.8-7.7); Neutrophils % 74.7 %; Nucleated Red Blood Cells % 0 %; Platelet Count 227 10^3/cmm (130-400); Red Blood Count 2.36 10^6/uL (4.1-5.3); Red Cell Distribution Width 24.3 % (12.1-15.1); White Blood Count 12.7 10^3/uL (4.0-10.0)
[2020-10-24 09:38] LABS: Hemoglobin 6.4 g/dL (11.7-16.6); INR 1.51 (0.8-1.2)
[2020-10-24 09:39] LABS: Partial Thromboplastin Time 45.1 SECONDS (23.9-36.7)
[2020-10-24 09:48] LABS: Alanine Aminotransferase 23 U/L (0-41); Albumin Level 2.9 g/dL (3.5-5.2); Alkaline Phosphatase 160 IU/L (40-130); Aspartate Amino Transferase 14 U/L (0-40); Blood Urea Nitrogen 53 mg/dL (8-23); Calcium 7.4 mg/dL (8.5-10.5); Carbon Dioxide 16 mmol/L (22-29); Chloride 101 mmol/L (98-107); Creatinine Clr Calc Pharmacy 34.5455; Glucose 113 mg/dL (65-115); Osmolality Calculated 283 mOsm/kg (285-295); Sodium 129 mmol/L (136-145); Total Bilirubin 0.9 mg/dL (0.15-1.2); Total Protein 4.9 g/dL (6.6-8.7)
[2020-10-24 10:16] LABS: Add Urine Culture? Yes; Add Urine Microscopic? YES; Bacteria Urine 3+ /hpf; Bilirubin Urine 1+ (Negative); Blood Urine Neg (Negative); Glucose Urine UA Norm (Normal); Ketones Urine Negative (Negative); Leukocyte Esterase Urine 2+ (Negative); Mucus Urine 2+ /hpf; Nitrate Urine Negative (Negative); Protein Urine Neg (Negative); RBC Urine 0-4 /hpf (0-2); Specific Gravity, Urine 1.015 (1.005-1.030); Squamous Epithelial Cell Urine 0-4 /hpf (0-5); Urine Appearance Cloudy (CLEAR); Urine Color Yellow (Yellow); Urobilinogen Urine Norm (Negative); WBC Urine 80-100 /hpf (0-5); pH Urine 5 (5-7)
[2020-10-24] MEDS: iodixanol 320 mg/mL 100mL Btl IV (10:21)
[2020-10-24] MEDS: sodium chloride 0.9% 1,000 ML 125 ML IV (10:54)
[2020-10-24] MEDS: cefTRIAXone 1,000 MG in sodium chloride 0.9% (plus) 50 ML 100 MG IV (11:49)
--- NOTE | 2020-10-24 12:07 | PM.HP ---
Providers/Chief Complaint Primary Care Provider: Jacquie Coto NP Chief Complaint: RECTAL BLEED History of Present Illness Tank Saavedra is a 85 year old male that presents to the emergency department with complaints of blood in his stool. He underwent an EGD and colonoscopy, on October 20 and a polypectomy was performed in the transverse colon. EGD demonstrated only mild duodenitis. reports he had some blood in his stool the following day, and every day since. Yesterday it was quite a large amount, and today with continued bleeding they came into the emergency department. She reports he has looked pale. He has not had any abdominal discomfort. He has had some nausea and at least one episode of emesis. No fever. He has not resumed his Plavix or Pradaxa. This was stopped 5 days prior to the procedure as well. He has been weak, with decreased appetite. He was not able to stand yesterday so his typical straight cath procedure of 4 times a day was not followed. He has been urinating only a small amount. Review of Systems General: Reports: 10 or more systems reviewed and unremarkable except in HPI and below Const: Reports: fatigue and malaise; Denies: fever(s) or chills Eyes: Denies: change in vision ENMT: Denies: throat pain Card: Denies: chest pain Resp: Denies: dyspnea GI: Reports: nausea, vomiting, hematochezia and melena; Denies: abdominal pain : Denies: flank pain Musc: Denies: neck pain Skin/Breast: Denies: rash Neuro: Denies: headache(s) Psych: Reports: memory loss; Denies: anxiety Endo: Denies: polyuria Bebeto/Lymph: Denies: easy bruising All/Imm: Denies: urticaria Medications/Allergies Home Medications Medication Instructions Recorded Confirmed Last Taken Type cholecalciferol (vitamin D3) 10 400 unit PO DAILY 09/22/19 10/24/20 10/23/20 History mcg (400 unit) capsule lycopene 10 mg capsule 10 mg PO DAILY 09/22/19 10/24/20 10/23/20 History nitroglycerin 0.4 mg sublingual 0.4 mg SUBLINGUAL Q5M PRN 09/22/19 10/24/20 Unknown History tablet dabigatran etexilate 75 mg capsule 75 mg PO BID #180 cap 07/08/1310/24/20 10/23/20 Rx levothyroxine 137 mcg capsule 150 mcg PO DAILY cap 12/24/19 10/24/20 10/24/20 History carvedilol 3.125 mg PO BID #60 tab 04/20/20 10/24/20 10/23/20 Rx clopidogrel 75 mg tablet 75 mg PO DAILY 05/10/20 10/24/20 10/23/20 History lutein 40 mg capsule 40 mg PO DAILY 05/10/20 10/24/20 10/23/20 History omega-3 fatty acids 1,000 mg 1,000 mg PO DAILY cap 06/22/20 10/24/20 10/23/20 History capsule famotidine 20 mg tablet 20 mg PO BID 09/12/20 10/24/20 10/23/20 History loratadine 10 mg tablet 10 mg PO BEDTIME tab 09/12/20 10/24/20 10/23/20 History spironolactone 25 mg PO DAILY 09/21/20 10/24/20 10/23/20 History potassium chloride 20 mEq 20 meq PO BID #60 tab 09/22/20 10/24/20 10/23/20 Rx tablet,extended release(part/cryst) ascorbic acid (vitamin C) [Vitamin 1,000 mg PO BID 10/24/20 10/24/20 10/23/20 History C] furosemide 40 mg PO BID 10/24/20 10/24/20 10/23/20 History methenamine hippurate 1 g PO BID 10/24/20 10/24/20 Unknown History Allergies Allergy/AdvReac Type Severity Reaction Status Date / Time fenofibrate Allergy Unknown Unknown Verified 10/20/20 09:30 levofloxacin Allergy Unknown Unknown Verified 10/20/20 09:30 niacin Allergy Unknown Unknown Verified 10/20/20 09:30 PFSH Acute PFSH: Medical History Anemia Aortic stenosis ASHD (arteriosclerotic heart disease) Atrial fibrillation Controlled Carotid stenosis, bilateral CKD (chronic kidney disease) Dyslipidemia HTN (hypertension) Hypothyroidism Ischemic cardiomyopathy Mitral regurgitation Phimosis Pulmonary HTN SSS (sick sinus syndrome) Urinary retention Surgical History H/O esophagogastroduodenoscopy (10/20/20) History of coronary artery stent placement S/P CABG (coronary artery bypass graft) S/P cataract extraction S/P hernia repair S/P ICD (internal cardiac defibrillator) procedure S/P TAVR (transcatheter aortic valve replacement) Status post colonoscopy (10/20/20) diverticulosis, polyps Family History Mother , at age 82 CAD (coronary artery disease) Father , at age 69 Stroke Social History Smoking and tobacco status: never smoked Alcohol intake: never Adopted: No Caregiver/support person: No Lives independently: No Household members: spouse Marital status: Current occupational status: retired History of recent travel: No Vitals/I&O/Wt Last Vital Signs Temp 97.8 F 10/24/20 11:15 Pulse 62 10/24/20 11:15 Resp 13 10/24/20 11:15 BP 117/53 10/24/20 11:15 Pulse Ox 98 10/24/20 11:00 10/23/20 10/24/20 10/24/20 22:59 06:59 14:59 Intake Total 0 / 0 Balance 0 / 0 Weight last 48 hrs Weight 74.843 kg Physical Exam Narrative: EXAM NARRATIVE: General exam is a pale appearing white male, who seems quite forgetful. HEENT: Pupils equally round. Oropharynx clear. Neck is supple no lymphadenopathy or thyromegaly Cardiovascular: Regular rate with 2/6 systolic murmur. Left chest defibrillator/pacemaker noted Lungs clear to auscultation bilaterally without wheezing or crackles Abdomen is soft with positive bowel sounds. No obvious organomegaly demonstrates Wang Extremities no cyanosis clubbing or edema, cap refill brisk Skin no rash. Left buttock where concern was on CT does not appear to have an abscess. There is a difference on this side consistent with lipoma Neuro no obvious focal deficits Urinary Catheter Management^: Wang: Cath Placed During This Visit: yes Urinary Catheter Date of Insertion: 10/24/20 Urinary Catheter Time of Insertion: 11:43 Data : 10/24/20 09:15 10/24/20 09:15 Other data: INR is 1.51 Calcium 7.4 LFTs normal Albumin 2.9 Urinalysis 80-100 white blood cells 0-4 reds Recent Covid PCR on October 17 - CT abdomen and pelvis demonstrates marked urinary distention, no evidence of obstruction, low-attenuation collection left buttocks, large left renal cyst A&P Assessment and plan (1) Acute lower GI bleeding: Post polypectomy bleeding 1 unit packed red blood cells have been ordered through the emergency department. Check hemoglobin and hematocrit 1 hour after transfusion. Repeat transfusion if hemoglobin less than 8, patient unstable, severe ongoing bleeding Surgery consultation N.p.o. currently Secondary to severe symptomatic anemia, presumed ongoing bleeding with blood in his stool noted this morning I will place in the ICU initially. Status: Acute (2) Anemia: Chronic anemia with superimposed acute blood loss anemia from post polypectomy bleed Status: Acute (3) Acute urinary retention: Continue Wang catheter. He normally straight caths 4 times daily Add Flomax Associated with UTI. Urine culture, ceftriaxone IV Status: Acute (4) Acute kidney injury: Hydrate cautiously I suspect this will improve with placement of the Wang catheter Avoid renal toxic medication Status: Acute (5) Hyponatremia: Associated with renal failure Continue to monitor Status: Acute (6) Ischemic cardiomyopathy: No chest discomfort currently Status: Acute (7) CKD (chronic kidney disease): Status: Acute Qualifiers: Chronic kidney disease stage: unspecified stage Qualified Code(s): N18.9 - Chronic kidney disease, unspecified Additional A&P Information Multiple other medical problems as outlined in his history and physical Full code These for DVT prophylaxis. Anticoagulation contraindicated secondary to ongoing GI bleed. 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
--- NOTE | 2020-10-24 14:00 | PC.NURSE ---
Admission assessment: pt very hard of hearing even with his bilat hearing aides.
[2020-10-24] MEDS: sodium chloride 0.9% 1,000 ML 50 ML IV (14:48)
[2020-10-24 15:02] LABS: Hematocrit 26.3 % (42.0-52.0)
--- NOTE | 2020-10-24 17:00 | PC.NURSE ---
Attempted to inform pt about his Hgb of 8 and next level check at 7 pm. Pt replied yes they buried them in [place] . Communication is hampered by pt's hearing loss. This nurse pulled her mask down so pt could also read lips, communication improved.
[2020-10-24] MEDS: famotidine 20 mg Tablet PO (18:01)
--- NOTE | 2020-10-24 18:36 | PC.NURSE ---
Shift summary: Pt arrived to ICU around 1300. Pt alert and oriented. He is extremely hard of hearing. VSS. NS infusing without difficulty. He denied pain since ICu. 350ml of dark urine output in catheter. NO bowel movements. He has rested in bed with his eyes closed most of the afternoon. Dr Littlejohn called to check on him, started clear liquid diet until MN. Pt working on his clear liquid at this time.
[2020-10-24 18:54] LABS: Hematocrit 25.2 % (42.0-52.0); Hemoglobin 7.8 g/dL (11.7-16.6)
[2020-10-24] MEDS: tamsulosin 0.4 mg Capsule PO (20:29)
[2020-10-24] MEDS: sodium chloride 0.9% (100 ml) 100 ML 10 ML (20:29)
--- NOTE | 2020-10-24 21:20 | PC.NURSE ---
Notified Dr. Wilson at 1940 of current H&H. Mr. Tank Saavedra in ICU 4 came in with a GI bleed today. His H&H was 6.4 and 21.7 at 0915 and 1 unit of PRBC was given, his recheck H&H at 1500 was 8.0 and 26.3, his 1949 recheck is 7.8 and 25.2 He will be NPO after midnight for a possible scope in the morning per Dr. Littlejohn. His next CBC is ordered at 4AM. Notified that blood pressure was currently 102/52. Order given to transfuse 1 unit PRBC.
[2020-10-25] VITALS (18 sets, daily range): BP systolic 82–126; BP diastolic 45–73; PULSE 57–64; RESP 11–23; TEMP 36.4–36.9; O2SAT 93–100
[2020-10-25 03:20] LABS: Basophils # 0.1 10^3/uL (0.0-0.1); Basophils % 0.5 %; Eosinophils # 0.1 10^3/uL (0.0-0.8); Eosinophils % 0.9 %; Hemoglobin 8.6 g/dL (11.7-16.6); Lymphocytes # 1.2 10^3/uL (0.8-4.8); Lymphocytes % 12.1 %; Mean Corpuscular HGB Conc 30.7 g/dL (30.0-36.0); Mean Corpuscular Volume 87.8 fL (80-94); Mean Platelet Volume 11.1 fL (7.4-10.4); Monocytes # 1.3 10^3/uL (0.2-0.9); Monocytes % 13.1 %; Neutrophils # 7.07 10^3/uL (1.8-7.7); Nucleated Red Blood Cells % 0.3 %; Platelet Count 216 10^3/cmm (130-400); Red Blood Count 3.19 10^6/uL (4.1-5.3); Red Cell Distribution Width 21.1 % (12.1-15.1)
[2020-10-25 03:49] LABS: Alanine Aminotransferase 22 U/L (0-41); Albumin Level 3.2 g/dL (3.5-5.2); Alkaline Phosphatase 155 IU/L (40-130); Anion Gap 14.4 (5-19); Aspartate Amino Transferase 14 U/L (0-40); Blood Urea Nitrogen 44 mg/dL (8-23); Calcium 7.8 mg/dL (8.5-10.5); Carbon Dioxide 18 mmol/L (22-29); Chloride 103 mmol/L (98-107); Globulin 1.7 g/dL (1.3-4.6); Glucose 92 mg/dL (65-115); Osmolality Calculated 283 mOsm/kg (285-295); Potassium 4.4 mmol/L (3.5-5.1); Sodium 131 mmol/L (136-145); Total Bilirubin 0.8 mg/dL (0.15-1.2); Total Protein 4.9 g/dL (6.6-8.7)
--- NOTE | 2020-10-25 07:16 | P.PN_ITS ---
Subjective Subjective: Interval history: Tank reports he feels a little bit better. Nursing reports he has had no bloody bowel movements overnight. Medications: Reviewed: Yes Vitals/I&O/Wt Last Vital Signs Temp 98.2 F 10/25/20 04:00 Pulse 62 10/25/20 06:00 Resp 23 H 10/25/20 06:00 BP 82/48 10/25/20 06:00 Pulse Ox 99 10/25/20 06:00 10/24/20 10/25/20 10/25/20 22:59 06:59 14:59 Intake Total 512.5 / 1562.5 350 / 1912.5 Output Total 350 / 350 525 / 875 Balance 162.5 / 1212.5 -175 / 1037.5 Weight last 48 hrs Weight 66.95 kg Weight 74.843 kg Physical Exam Narrative: EXAM NARRATIVE: General exam no apparent distress, conversant, slightly confused Neck is supple no lymphadenopathy or thyromegaly Cardiovascular: Regular rate with 2/6 systolic murmur. Left chest defibrillator/pacemaker noted Lungs clear to auscultation bilaterally without wheezing or crackles Abdomen is soft with positive bowel sounds. No obvious organomegaly demonstrates Wang Extremities no cyanosis clubbing or edema, cap refill brisk Urinary Catheter Management^: Wang: Cath Placed During This Visit: yes Reason for Continuing Indwelling Catheter: Accurate Measurement of Urinary Output in Critically Ill Patients Urinary Catheter Date of Insertion: 10/24/20 Urinary Catheter Time of Insertion: 11:43 Data : 10/25/20 02:38 10/25/20 02:38 A&P Assessment and plan (1) Acute lower GI bleeding: Post polypectomy bleeding 2 units packed red blood cells transfused since admission No recurrent bleeding since admission. Await surgery consultation Secondary to improvement initiate clear liquids May transfer out of ICU Continue to hold anticoagulants and antiplatelets Status: Acute (2) Anemia: Chronic anemia with superimposed acute blood loss anemia from post polyp ectomy bleed. Status post 2 units of packed red blood cells Status: Acute (3) Acute urinary retention: Continue Wang catheter. He normally straight caths 4 times daily Add Flomax Associated with UTI. Continue Rocephin Await urine culture Has some confusion which has commented is worse lately. This is likely acute encephalopathy secondary to UTI, GI bleeding Status: Acute (4) Acute kidney injury: Improved with placement of Wang catheter and hydration Discontinue hydration currently Initiate diet Avoid renal toxic medication Status: Acute (5) Hyponatremia: Associated with renal failure Improved Status: Acute (6) Ischemic cardiomyopathy: No chest discomfort currently Patient has a history of CHF. Is he starts to drink better, and renal function improves will restart Lasix. This will likely happen tomorrow. Status: Acute (7) CKD (chronic kidney disease): Status: Acute Qualifiers: Chronic kidney disease stage: unspecified stage Qualified Code(s): N18.9 - Chronic kidney disease, unspecified Additional A&P Information Multiple other medical problems as outlined in his history and physical Full code SCD's for DVT prophylaxis. Anticoagulation contraindicated secondary to ongoing GI bleed. Transfer out of ICU Attestations Medical Necessity Statement*: Needs continued hospitalization for initiation of diet, close follow-up for bleeding in this patient with significant acute blood loss anemia from post polypectomy bleed. 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
--- NOTE | 2020-10-25 09:08 | PC.NURSE ---
Report called to JC Alcantara on Medical Surgical floor. Pt to be sent to room 278-2.
[2020-10-25] MEDS: carvedilol 3.125 mg Tablet PO ×2 (09:34→17:40)
[2020-10-25] MEDS: famotidine 20 mg Tablet PO ×2 (09:34→17:40)
[2020-10-25] MEDS: levothyroxine 150 mcg Tablet PO (09:34)
--- NOTE | 2020-10-25 09:45 | PM.CONSULT ---
Providers/Reason For Consult Consulting Physican/Specialty*: Dr. Montoya Reason for Consult*: GI bleed, anemia Attending Physician: Juan Montoya MD Primary Care Provider: Jacquie Coto NP History of Present Illness History of Present Illness Tank Saavedra is a 85 year old male with multiple comorbidities who underwent an EGD and colonoscopy with polypectomy on 10/20/2020. Patient subsequently started having dark stools 48 hours later and has been having occasional dark blood in stools for the last 3 days. Patient was feeling weak and therefore was brought to the emergency room. Since he has presented to the hospital over the last 24 hours he is not had any further bleeding. He denies any abdominal pain, nausea or vomiting. He received 2 units PRBC Review of Systems General: Reports: ROS unobtainable due to mental status Meds/Allergies Home Medications and Allergies Home Medications Medication Instructions Recorded Confirmed Last Taken Type cholecalciferol (vitamin D3) 10 400 unit PO DAILY 09/22/19 10/24/20 10/23/20 History mcg (400 unit) capsule lycopene 10 mg capsule 10 mg PO DAILY 09/22/19 10/24/20 10/23/20 History nitroglycerin 0.4 mg sublingual 0.4 mg SUBLINGUAL Q5M PRN 09/22/19 10/24/20 Unknown History tablet dabigatran etexilate 75 mg capsule 75 mg PO BID #180 cap 12/24/19 10/24/20 10/23/20 Rx levothyroxine 137 mcg capsule 150 mcg PO DAILY cap 12/24/19 10/24/20 10/24/20 History carvedilol 3.125 mg PO BID #60 tab 04/20/20 10/24/20 10/23/20 Rx clopidogrel 75 mg tablet 75 mg PO DAILY 05/10/20 10/24/20 10/23/20 History lutein 40 mg capsule 40 mg PO DAILY 05/10/20 10/24/20 10/23/20 History omega-3 fatty acids 1,000 mg 1,000 mg PO DAILY cap 06/22/20 10/24/20 10/23/20 History capsule famotidine 20 mg tablet 20 mg PO BID 09/12/20 10/24/20 10/23/20 History loratadine 10 mg tablet 10 mg PO BEDTIME tab 09/12/20 10/24/20 10/23/20 History spironolactone 25 mg PO DAILY 09/21/20 10/24/20 10/23/20 History potassium chloride 20 mEq 20 meq PO BID #60 tab 09/22/20 10/24/20 10/23/20 Rx tablet,extended release(part/cryst) ascorbic acid (vitamin C) [Vitamin 1,000 mg PO BID 10/24/20 10/24/20 10/23/20 History C] furosemide 40 mg PO BID 10/24/20 10/24/20 10/23/20 History methenamine hippurate 1 g PO BID 10/24/20 10/24/20 Unknown History Allergies Allergy/AdvReac Type Severity Reaction Status Date / Time fenofibrate Allergy Unknown Unknown Verified 10/20/20 09:30 levofloxacin Allergy Unknown Unknown Verified 10/20/20 09:30 niacin Allergy Unknown Unknown Verified 10/20/20 09:30 Current Medications Current Medications Generic Name Dose Route Start Last Admin Trade Name Freq PRN Reason Stop Dose Admin Carvedilol 3.125 mg 10/25/20 09:00 10/25/20 09:34 Carvedilol 3.125 Mg Tablet PO 3.125 mg BID DEONNA Administration Famotidine 20 mg 10/24/20 18:00 10/25/20 09:34 Famotidine 20 Mg Tablet PO 20 mg BID DEONNA Administration Ceftriaxone Sodium 1,000 mg/ 50 mls @ 100 mls/hr 10/24/20 12:00 10/24/20 12:20 Sodium Chloride IV Infused Q24H DEONNA Infusion Protocol Levothyroxine Sodium 150 mcg 10/25/20 09:00 10/25/20 09:34 Levothyroxine 150 Mcg Tablet PO 150 mcg DAILY DEONNA Administration Tamsulosin HCl 0.4 mg 10/24/20 21:00 10/24/20 20:29 Tamsulosin 0.4 Mg Capsule PO 0.4 mg BEDTIME DEONNA Administration PFSH Acute PFSH: Medical History Anemia Aortic stenosis ASHD (arteriosclerotic heart disease) Atrial fibrillation Controlled Carotid stenosis, bilateral CKD (chronic kidney disease) Dyslipidemia HTN (hypertension) Hypothyroidism Ischemic cardiomyopathy Mitral regurgitation Phimosis Pulmonary HTN SSS (sick sinus syndrome) Urinary retention Surgical History H/O esophagogastroduodenoscopy (10/20/20) History of coronary artery stent placement S/P CABG (coronary artery bypass graft) S/P cataract extraction S/P hernia repair S/P ICD (internal cardiac defibrillator) procedure S/P TAVR (transcatheter aortic valve replacement) Status post colonoscopy (10/20/20) diverticulosis, polyps Family History Mother , at age 82 CAD (coronary artery disease) Father , at age 69 Stroke Social History Smoking and tobacco status: never smoked Alcohol intake: never Adopted: No Caregiver/support person: No Lives independently: No Household members: spouse Marital status: Current occupational status: retired History of recent travel: No Vitals/I&O/Wt Last Vital Signs Temp 97.6 F 10/25/20 07:00 Pulse 62 10/25/20 08:00 Resp 14 10/25/20 08:00 BP 89/46 10/25/20 08:00 Pulse Ox 100 10/25/20 08:00 10/24/20 10/25/20 10/25/20 22:59 06:59 14:59 Intake Total 512.5 / 1912.5 350 / 1912.5 0 / 0 Output Total 350 / 875 525 / 875 Balance 162.5 / 1037.5 -175 / 1037.5 0 / 0 Weight last 48 hrs Weight 147 lb 9.6 oz Weight 165 lb Physical Exam Narrative: EXAM NARRATIVE: HEENT: Normocephalic Eye: Sclera /conjunctiva normal Abdomen: Soft to palpation, nontender, nondistended Neurological: Oriented to place person and time Skin: Intact, no lesions appreciated on gross exam Urinary Catheter Management^: Wang: Cath Placed During This Visit: yes Reason for Continuing Indwelling Catheter: Accurate Measurement of Urinary Output in Critically Ill Patients Urinary Catheter Date of Insertion: 10/24/20 Urinary Catheter Time of Insertion: 11:43 Data Micro: Micro: Microbiology 10/24/20 09:45 Urine Culture - Pr eliminary Urine,Clean Catch A&P Assessment and plan (1) Anemia: 85-year-old male with multiple comorbidities who is on Pradaxa and Plavix status post EGD and colonoscopy 5 days ago who presents with a hemoglobin of 6.4. He received 2 units PRBC and his hemoglobin is up to 8.6. He has not had any further bleeding. We will start him on a full liquid diet and restart his home medications. Transfer out of ICU Status: Acute Coding Level of Care Code Acute Last Putter Away for [facility] Fwd Diagnoses Anemia D64.9
--- NOTE | 2020-10-25 10:41 | PC.NURSE ---
Pt transferred via bed to the Medical Surgical floor to room 278-2. Pt transferred well, belongings placed at bedside. JC Mims was notified of pt arrival to floor. called and updated of patient's plan of care for today.
--- NOTE | 2020-10-25 10:57 | PC.NUTR ---
Nutrition assessment completed for low BMI. Recommend obtain and clarify current weight when possible, due to wt of 165 lbs on 10/24/20 and 147.75 lbs on 10/25/20 per chart. Recommend encouragement and supervision at meals, per nurse report that pt forgets to eat at times. See full nutrition assessment for further details.
[2020-10-25] MEDS: cefTRIAXone 1,000 MG in sodium chloride 0.9% (plus) 50 ML 100 MG IV (12:30)
--- NOTE | 2020-10-25 17:26 | PC.PT ---
Attempted PT evaluation of patient 3 times today; patient sleeping soundly at this time, not eating his liquid dinner; earlier was on bedpan but rejected offer of using toilet, did not know how long he be on bedpan; will reattempt tomorrow
[2020-10-26 04:07] VITALS: BP 111/65; PULSE 62; RESP 17; TEMP 36.6; O2SAT 95
[2020-10-26 06:00] VITALS: PULSE 62
[2020-10-26 06:16] LABS: Basophils % 0.5 %; Eosinophils # 0.2 10^3/uL (0.0-0.8); Eosinophils % 2.2 %; Hematocrit 26.8 % (42.0-52.0); Hemoglobin 8.2 g/dL (11.7-16.6); Lymphocytes # 1.2 10^3/uL (0.8-4.8); Lymphocytes % 15.7 %; Mean Corpuscular HGB Conc 30.6 g/dL (30.0-36.0); Mean Corpuscular Hemoglobin 27.6 pg (28.0-34.0); Mean Corpuscular Volume 90.2 fL (80-94); Mean Platelet Volume 10.9 fL (7.4-10.4); Monocytes # 0.9 10^3/uL (0.2-0.9); Monocytes % 12.4 %; Neutrophils # 4.88 10^3/uL (1.8-7.7); Neutrophils % 66.6 %; Nucleated Red Blood Cells % 0.4 %; Platelet Count 209 10^3/cmm (130-400); Red Blood Count 2.97 10^6/uL (4.1-5.3); Red Cell Distribution Width 21.6 % (12.1-15.1); White Blood Count 7.3 10^3/uL (4.0-10.0)
[2020-10-26 06:36] LABS: Anion Gap 9.9 (5-19); Blood Urea Nitrogen 30 mg/dL (8-23); Calcium 8.1 mg/dL (8.5-10.5); Carbon Dioxide 20 mmol/L (22-29); Chloride 107 mmol/L (98-107); Glucose 81 mg/dL (65-115); Osmolality Calculated 281 mOsm/kg (285-295); Potassium 3.9 mmol/L (3.5-5.1); Sodium 133 mmol/L (136-145)
[2020-10-26 08:00] VITALS: BP 102/57; PULSE 60; RESP 14; TEMP 36.4; O2SAT 99
[2020-10-26] MEDS: carvedilol 3.125 mg Tablet PO (09:23)
[2020-10-26] MEDS: levothyroxine 150 mcg Tablet PO (09:23)
[2020-10-26] MEDS: famotidine 20 mg Tablet PO (09:24)
[2020-10-26 11:42] VITALS: BP 98/72; PULSE 60; RESP 13; O2SAT 98
[2020-10-26] MEDS: cefTRIAXone 1,000 MG in sodium chloride 0.9% (plus) 50 ML 100 MG IV (12:15)
--- NOTE | 2020-10-26 12:24 | PM.DCS ---
Discharge Providers Date of Admission: 10/24/20 12:07 Date of Discharge: October 26, 2020 Attending Provider at Admission: Juan Montoya MD Attending Provider at Discharge: Juan Montoya MD Primary Care Provider: Jacquie Coto NP Diagnoses at Discharge Discharge Diagnosis (1) Anemia: Status: Acute Reason for Visit Reason for Visit: RECTAL BLEED Hospital Course Hospital Course Tank is an 85-year-old white male who presented with lower GI bleeding. He had recently had a colonoscopy, and the presumption is that this was a post polypectomy bleed. He was placed in the ICU with his hemoglobin less than 7, and symptomatic acute anemia. He was given 1 unit of blood and followed closely, and with hemoglobin less than 8 and potentially still bleeding he was given another unit of blood. Following this he had no further bowel movements suggestive of bleeding and was monitored in the hospital. On October 26 it was determined that he was stable to go home. At that time he was hemodynamically stable, hemoglobin was 8.2, and he had had no evidence of continued active bleeding. He will discharge home with home health. Hemoglobin will need to be repeated on Saturday, in approximately 5 days and at that time if it is stable and he has had no active bleeding he can resume his Pradaxa and Plavix. Surgery will follow up by phone. There was concern of urine infection when he came in and Flomax was added for his urinary retention and a Wang was placed. At discharge the Wang should be removed, and patient will continue to self cath 4 times daily. He was doing this previously. Physical Exam Narrative: EXAM NARRATIVE: General exam no apparent distress Cardiovascular regular rate and rhythm without murmur Lungs clear Abdomen is soft, positive bowel sounds Extremities no cyanosis clubbing or edema Urinary Catheter Management^: Wang: Cath Placed During This Visit: yes, but has since been removed by the nurse Reason for Continuing Indwelling Catheter: Other Urinary Catheter Date of Insertion: 10/24/20 Urinary Catheter Time of Insertion: 11:43 Date Urinary Catheter Removed: 10/26/20 Time Urinary Catheter Discontinued: 06:50 Discharge Data Data Completed and Pending: Completed Studies During Hospitalization Category Date Time Status CT abdomen pelvis w con* [id number] Stat Cat Scan 10/24/20 08:49 Completed Labs from last 24 hours 10/26/20 10/26/20 05:00 05:00 WBC 7.3 RBC 2.97 L Hgb 8.2 L Hct 26.8 L MCV 90.2 MCH 27.6 L MCHC 30.6 RDW 21.6 H Plt Count 209 MPV 10.9 H Neut % (Auto) 66.6 Lymph % (Auto) 15.7 [place] % (Auto) 12.4 Eos % (Auto) 2.2 Baso % (Auto) 0.5 Neut # (Auto) 4.88 Lymph # (Auto) 1.2 [place] # (Auto) 0.9 Eos # (Auto) 0.2 Baso # (Auto) 0.0 Nucleated RBC % (a uto) 0.4 Nucleated RBCs # 0.0 Sodium 133 L Potassium 3.9 Chloride 107 Carbon Dioxide 20 L Anion Gap 9.9 BUN 30 H Creatinine 1.0 GFR Calculation Not Reportable Glucose 81 Calculated Osmolal ity 281 L Calcium 8.1 L Vitals: Last Vital Signs Temp 97.5 F L 10/26/20 08:00 Pulse 60 10/26/20 11:42 Resp 13 10/26/20 11:42 BP 98/72 10/26/20 11:42 Pulse Ox 98 10/26/20 11:42 Discharge Plan Discharge Patient Disposition: Home Condition: Stable Prescriptions: New tamsulosin 0.4 mg Capsule 0.4 mg PO BEDTIME Qty: 30 RF: 0 Continued lutein 40 mg capsule 40 mg PO DAILY RF: 0 potassium chloride 20 mEq tablet,ER particles/crystals 20 meq PO BID Qty: 60 RF: 3 nitroglycerin [Nitrostat] 0.4 mg tablet, sublingual 0.4 mg SUBLINGUAL Q5M PRN (Reason: Chest Pain) RF: 0 cholecalciferol (vitamin D3) 400 unit capsule 400 unit PO DAILY RF: 0 lycopene 10 mg capsule 10 mg PO DAILY RF: 0 levothyroxine 137 mcg capsule 150 mcg PO DAILY RF: 0 omega-3 fatty acids [Fish Oil Concentrate] 1,000 mg capsule 1,000 mg PO DAILY RF: 0 famotidine [Pepcid] 20 mg tablet 20 mg PO BID RF: 0 loratadine [Claritin] 10 mg tablet 10 mg PO BEDTIME RF: 0 carvedilol 3.125 mg Tablet 3.125 mg PO BID Qty: 60 RF: 0 spironolactone 25 mg tablet 25 mg PO DAILY RF: 0 Vitamin C 1,000 mg Tablet 1,000 mg PO BID RF: 0 methenamine hippurate 1 gram Tablet 1 g PO BID RF: 0 furosemide 40 mg tablet 40 mg PO BID RF: 0 Discontinued clopidogrel 75 mg tablet 75 mg PO DAILY RF: 0 Pradaxa 75 mg capsule 75 mg PO BID Qty: 180 RF: 4 Hold Instructions: Resume on 10/21/20. Discharge Orders: Discharge Order (Routine); Ordered 10/26/20 Ordered By: Juan Montoya Referrals: Jacquie Coto NP [Primary Care Provider] - 11/02/20 2:00 pm (CBC on Saturday. If hemoglobin stable and no further bleeding consider restarting Plavix and Pradaxa.) [facility], [Staff Physician] - ([facility] will be calling you to set up a time do admit you to their services. If you have any questions or concerns please call them at [phone].) Discharge Diet: Cardiac Discharge Activity: Increase activity as tolerated Patient Instructions: Opioid Safety Activity Restrictions/Additional Instructions: Take all medicine as prescribed CBC Saturday, report to primary care provider. Remove Wang at discharge Self cath 4 times daily as previously, and as needed Discharge Attestations Time Spent in Discharge Care*: greater than 30 min Quality Metrics Clinical Quality Measures During this hospital stay, did patient experience: None Coding Level of Care Code Acute g [place] note Diagnoses Anemia D64.9
[2020-10-26 15:20] VITALS: BP 102/69; PULSE 82; RESP 16; O2SAT 98
--- NOTE | 2020-10-26 16:36 | PC.NURSE ---
PT HAS DONE WELL FOR ME TODAY. PT HAS BEEN UP WITH PHYSICAL THERAPY, AMBULATING IN THE [place]. PT HAS DONE WELL AMBULATING. PT WILL DISCHARGE TODAY PER MD. MACIAS WAS REMOVED. PT TOLERATED WELL. DISCHARGE PAPERWORK WAS GIVEN TO PATIENT AND DISCUSSED WITH HIM AND HIS . ALL QUESTIONS WERE ANSWERED. IV REMOVED. CATHETER TIP INTACT. PT TOLERATED WELL. PT WHEELED OUT BY THIS NURSE. PT SAFELY DISCHARGED FROM THIS HOSPITAL AT 15:49.
[2020-10-26 16:41] VITALS: BP 102/69; PULSE 82; RESP 16; O2SAT 98
== END 2020-10-26 16:43 | disposition home health service (06) | DRG 920 ==
LOC: ER 12:00 → ICU 12:37 → MEDSURG 10-25 10:27
PROVIDERS: Admitting Provider Internal Medicine; Emergency Provider Family Medicine; PCP Nurse Practitioner Family; Visit Provider Internal Medicine
DX: K91.840 Postprocedural hemorrhage of a digestive system organ or structure following a digestive system procedure (principal); D62 Acute posthemorrhagic anemia; N39.0 Urinary tract infection, site not specified; E87.1 Hypo-osmolality and hyponatremia; N17.9 Acute kidney failure, unspecified; Z86.010 Personal history of colon polyps; I25.10 Atherosclerotic heart disease of native coronary artery without angina pectoris; Z95.5 Presence of coronary angioplasty implant and graft; Z95.1 Presence of aortocoronary bypass graft; I48.91 Unspecified atrial fibrillation; I65.23 Occlusion and stenosis of bilateral carotid arteries; I12.9 Hypertensive chronic kidney disease with stage 1 through stage 4 chronic kidney disease, or unspecified chronic kidney disease; N18.9 Chronic kidney disease, unspecified; E78.5 Hyperlipidemia, unspecified; E03.9 Hypothyroidism, unspecified; I25.5 Ischemic cardiomyopathy; N47.1 Phimosis; I27.20 Pulmonary hypertension, unspecified; Z95.810 Presence of automatic (implantable) cardiac defibrillator; R33.9 Retention of urine, unspecified; Z95.2 Presence of prosthetic heart valve
CPT/HCPCS: 36415; 36430; 51702; 74177; 80048; 80053; 81001; 85014; 85018; 85025; 85610; 85730; 86850; 86900; 86920; 87086; 96361; 96365; 97161; 97530; 99285; J0696; J7030; P9016; Q9967

== ENCOUNTER 2020-10-31 12:41 | Outpatient (CLI) | payer MEDICARE, BC, SELFPAY ==
[2020-10-31 13:34] LABS: Hematocrit 27.8 % (42.0-52.0); Hemoglobin 8.7 g/dL (11.7-16.6); Mean Corpuscular HGB Conc 31.3 g/dL (30.0-36.0); Mean Corpuscular Hemoglobin 27.9 pg (28.0-34.0); Mean Corpuscular Volume 89.1 fL (80-94); Mean Platelet Volume 11.7 fL (7.4-10.4); Platelet Count 237 10^3/cmm (130-400); Red Blood Count 3.12 10^6/uL (4.1-5.3); White Blood Count 9.3 10^3/uL (4.0-10.0)
[2020-10-31 14:56] LABS: Absolute Neutrophil 6.6 10^3/cmm (1.4-6.5); Absolute Segmented Neutrophil 6.6 10/cmm (1.6-7.1); Anisocytosis Trace; Eosinophils 1 %; Lymphocytes 22 %; Lymphocytes Absolute 2.3 10^3/cmm (1.2-3.4); Monocytes Absolute 0.3 10^3/cmm (0.1-0.6); Platelet Estimate Normal (Normal); Poikilocytosis Trace; Segmented Neutrophils 71 %; Total Cells Counted 100 (0-100)
== END 2020-10-31 12:42 | disposition home or self-care (01) ==
LOC: LAB 12:46
PROVIDERS: PCP Nurse Practitioner Family; Visit Provider Internal Medicine
DX: D64.9 Anemia, unspecified (principal)
CPT/HCPCS: 85007; 85027

== ENCOUNTER 2020-11-02 14:18 | Outpatient (CLI) | payer MEDICARE, BC, SELFPAY ==
[2020-11-02 15:11] LABS: Basophils # 0.1 10^3/uL (0.0-0.1); Basophils % 0.7 %; Eosinophils # 0.2 10^3/uL (0.0-0.8); Eosinophils % 1.8 %; Hematocrit 31.4 % (42.0-52.0); Hemoglobin 9.5 g/dL (11.7-16.6); Lymphocytes # 1.8 10^3/uL (0.8-4.8); Lymphocytes % 15.5 %; Mean Corpuscular HGB Conc 30.3 g/dL (30.0-36.0); Mean Corpuscular Hemoglobin 27.6 pg (28.0-34.0); Mean Corpuscular Volume 91.3 fL (80-94); Mean Platelet Volume 11.1 fL (7.4-10.4); Monocytes # 1.5 10^3/uL (0.2-0.9); Monocytes % 13.2 %; Neutrophils # 7.52 10^3/uL (1.8-7.7); Neutrophils % 66.8 %; Nucleated Red Blood Cells % 0 %; Platelet Count 253 10^3/cmm (130-400); Red Blood Count 3.44 10^6/uL (4.1-5.3); Red Cell Distribution Width 20.7 % (12.1-15.1); White Blood Count 11.3 10^3/uL (4.0-10.0)
[2020-11-02 15:25] LABS: Alanine Aminotransferase 13 U/L (0-41); Albumin Level 3.6 g/dL (3.5-5.2); Alkaline Phosphatase 178 IU/L (40-130); Anion Gap 12.7 (5-19); Aspartate Amino Transferase 19 U/L (0-40); Blood Urea Nitrogen 24 mg/dL (8-23); Calcium 8.2 mg/dL (8.5-10.5); Carbon Dioxide 26 mmol/L (22-29); Chloride 97 mmol/L (98-107); Ferritin 369 ng/mL (30-400); Globulin 2.4 g/dL (1.3-4.6); Glucose 93 mg/dL (65-115); Iron 57 ug/dL (59-158); Osmolality Calculated 276 mOsm/kg (285-295); Percent Saturation 23.8 % (20-50); Potassium 4.7 mmol/L (3.5-5.1); Sodium 131 mmol/L (136-145); Total Bilirubin 0.7 mg/dL (0.15-1.2); Total Iron Binding Capacity 239 mcg/dl; Unsaturated Iron Binding 182 ug/dL (112-347)
--- NOTE | 2020-11-02 16:05 | ONC FU_ITS ---
Dr. Finch follow up note Patient: Tank Saavedra Unit #: [id number]: [id number] Dicatated By: Saurabh Finch M.D.Date of Visit:November 02, 2020 Onc Med Follow-up/Prog Note History of Present Illness: Mr. aSavedra is an 85-year-old gentleman with history of hypothyroidism, congestive heart failure, atrial fibrillation and essential hypertension. He found to have a 'swollen 'lymph node for which he underwent whole blood flow cytometry on 12/12/2018. The results reported mildly expanded population of myeloblasts and basophils, suggestive of myelodysplastic syndrome or myeloproliferative disorder. Patient denied any history of anemia, night sweats or weight loss, recurrent fever or abdominal fullness. Repeat flow cytometry done on 05/14/2019 showed no aberrant myeloid or lymphoid population detected And CBC Checked on 06/11/2019 was also within normal range. His family reported that he was admitted to hospital in February 2020 with sepsis and treated with antibiotics. Mr. Saavedra was also diagnosed with enlarged prostate gland causing obstruction. He was using self catheterization as per he was given an oral antibiotic for prophylaxis by Dr. Young. However after starting it, he developed whole body swelling but no choking sensation no dysphagia or shortness of breath and antibiotic was stopped. Unfortunately the whole-body swelling improved but persistent on the left side also had abdominal distention. This is being addressed by his now PCP and he has been scheduled for abdominal sonogram to rule out ascites and also being referred to cardiology to assess cardiac function. Mr Saavedra was sent to outpatient department on September 14, 2020 with severe anemia and he was given 2 units of packed RBC for hemoglobin down to 6.4 g. He was also started on prednisone tapering dose for presumed hemolytic anemia. Stool for occult blood was positive. He was found to have iron deficiency on September 11, [address] Gambino's office. At that time his iron saturation was 7.14% and his iron level was 25. It was arranged for him to have 2 units of Injectafer. His first dose was on 09/21/2020 the second dose was on October 04, 2020. Underwent colonoscopy and EGD on October 20, 2020 which shows 5 mm sessile polyps x2 in the transverse colon, there were removed final pathology report showed no malignancy, also there was evidence of internal hemorrhoids. EGD showed no abnormality except mild duodenitis. Came for follow-up, denies any specific complaints, no fever chills, no nausea or vomiting, no diarrhea constipation, no melena or hematochezia, no shortness of breath or palpitation at rest, no jaundice, patient tolerated EGD/colonoscopy well. Medications: amLODIPine Besylate 0.5 Tablet (of 5 mg) Oral b.i.d., Atorvastatin Calcium 1 Tablet (of 40 mg) Oral daily, Carvedilol 1 Tablet (of 25 mg) Oral b.i.d., Cetirizine HCl 1 Tablet (of 10 mg) Oral daily, Cholecalciferol 1 Tablet (of 1000 Units) Oral daily, Clopidogrel Bisulfate 1 Tablet (of 75 mg) Oral daily, [facility] Nasal Allergy [place] Aerosol Nasal, Fish Oil 2 Capsule (of 500 mg) Oral daily, Furosemide 1 Tablet (of 40 mg) Oral t.i.d., Levothyroxine Sodium 1 Tablet (of 150 mcg) Oral daily, Lisinopril 1 Tablet (of 20 mg) Oral b.i.d., Lycopene 1 Capsule (of 10 mg) Oral daily, Nitrostat 1 Tablet (of 0.4 mg) Tablet, sublingual Sublingual daily PRN, Potassium Chloride ER 1 Tablet (of 20 meq) Tablet, controlled release Oral b.i.d., Pradaxa 1 Capsule (of 75 mg) Oral daily, predniSONE 2 Tablet (of 10 mg) Oral daily, Spironolactone 1 Tablet (of 25 mg) Oral daily, Tamsulosin HCl 1 Capsule (of 0.4 mg) Oral daily Allergies: Levaquin, Niaspan, and Tricor. Review of Systems: Review of Systems is not available for this patient. Vital Signs: Performed on November 02, 2020 15:22 Height - 69.00 in Temperature - 97.6 F (LOW) Pulse - 58 /min (LOW) Respiration - 18 /min BP - 117/66 mm(hg) O2 Sat - 90 % (LOW) Pain - 0 Performance Status: 1 - No physically strenuous activity, but ambulatory and able to carry out light or sedentary work (e.g. office work, light house work). (ECOG) Physical Examination: ENMT - No mouth sores, no thrush, no jaundice, no cervical lymphadenopathy, Respiratory - Lungs are clear to auscultation, Cardiovascular - Regular rate and rhythm of heart, Abdomen - Soft, bowel sounds present, Extremities - No visible edema. Lab/Imaging: Test performed on Oct 05, 2020 09:10 Retic Count % 1.9 % WBC 7.7 10 3/uL RBC 4.36 10 6/uL HGB 11.2 g/dL HCT 39.2 % MCV 89.9 fL MCH 25.7 pg MCHC 28.6 g/dL RDW 25.2 % Platelet Count 94 10 3/cmm Neutrophils 6.28 10 3/uL Lymphocytes 0.8 10 3/uL Monocytes 0.5 10 3/uL Eosinophils 0.1 10 3/uL Basophils 0.0 10 3/uL Neutrophil % 82.1 % Lymphocyte % 9.8 % Monocyte % 6.4 % Eosinophil % 1.0 % Basophils % 0.3 % NRBC % 0 % CBC Slide Review Slide Review Perform Test performed on Sep 21, 2020 14:33 MPV 12.0 fl NRBC 0.0 /100 WBC Test performed on Sep 12, 2020 12:52 % Iron Saturation 7.14 % Iron, Total 25 mcg/dL TIBC 350 mcg/dL Nason / Lambda Ratio 1.36 Absolute Value Lambda Light Chain 67.53 Nason Light Chain 92.01 Test performed on May 06, 2020 14:32 Manual Lymphocytes 23.2 % Manual Monocytes 9.7 % Manual Eosinophils 4.5 % Manual Basophils 1.1 % Impression: Iron deficiency anemia, etiology probably due to chronic GI blood loss patient is on anticoagulation and with stool positive for occult bleeding status post 2 units of packed RBCs has labs done on September 12, 2021 showed hemoglobin 6.6 g hematocrit 23.8 MCV 80.4 white blood count 10.9 platelets 334,000 and iron studies shows iron 25, iron saturation 7.14 TIBC 350, Status post 1 dose of Venofer on September 21, 2020 Abnormal whole blood flow cytometry done for' swollen' lymph node on 12/12/2018 which showed mildly expanded population of myeloblasts and basophils, suggestive of myelodysplastic syndrome or myeloproliferative disorder. CBC done on 12/12/2018 showed white blood count 9 hemoglobin 13.9 crit 42.5 MCV 89.5 platelets 188,000 neutrophil 68.2% lymphocytes 15.4% monocytes 11.6% Repeat whole blood flow cytometry done on 05/14/2019 showed no aberrant myeloid or lymphoid population detected Folic acid 15.1 white him and B12 329 normal being [id number] Underwent EGD and colonoscopy on November 20, 2019 which showed, mild duodenitis otherwise unremarkable whereas colonoscopy showed 5 mm sessile polyps x2 removed from transverse colon, both were benign and internal hemorrhoids Plan: Discussed with patient regarding his labs white blood count 11.3 hemoglobin 9.5 g compared to 11.2 g on October 05, 2020 hematocrit 31.4 platelets 253,000 CMP within normal limits except creatinine 1.4 and iron saturation 23.8% ferritin 369 iron 57 TIBC 239 Clinically, patient is doing well with no new signs symptoms recently underwent EGD and colonoscopy which showed no obvious cause for bleeding except internal hemorrhoids. His follow-up lab work-up shows drop in his hemoglobin from 11.2 g previously now down to 9.5 g with no obvious sign of bleeding, his iron studies shows iron stores within normal range, considering his age underlying myelodysplasia cannot be ruled out At this point we will consider bone marrow evaluation, if it confirms MDS and there is a further drop in his hemoglobin, may we may consider erythropoiesis stimulating agents. Return to clinic 1 week after bone marrow evaluation with CBC Signed By: Saurabh Finch M.D. <<Signature on File>>
[2020-11-03 12:42] LABS: PROTEIN, TOTAL 6.1 g/dL (6.1-8.1)
[2020-11-03 14:23] LABS: KAPPA LIGHT CHAIN, FREE, SERUM 40.2 mg/L (3.3-19.4); KAPPA/LAMBDA LIGHT CHAINS FREE 0.97 (0.26-1.65); LAMBDA LIGHT CHAIN, FREE, SERU 41.5 mg/L (5.7-26.3)
[2020-11-03 15:27] LABS: ALBUMIN 3.6 g/dL (3.8-4.8); ALPHA 1 GLOBULIN 0.3 g/dL (0.2-0.3); ALPHA 2 GLOBULIN 0.7 g/dL (0.5-0.9); BETA 1 GLOBULIN 0.4 g/dL (0.4-0.6); BETA 2 GLOBULIN 0.3 g/dL (0.2-0.5); GAMMA GLOBULIN 0.9 g/dL (0.8-1.7)
== END 2020-11-02 14:19 | disposition home or self-care (01) ==
LOC: ONCMED 14:23
PROVIDERS: PCP Nurse Practitioner Family; Visit Provider Internal Medicine Hematology & Oncology
DX: D50.0 Iron deficiency anemia secondary to blood loss (chronic) (principal); D46.9 Myelodysplastic syndrome, unspecified; Z79.01 Long term (current) use of anticoagulants; Z79.899 Other long term (current) drug therapy
CPT/HCPCS: 36415; 80048; 80053; 82728; 83540; 83550; 83883; 84155; 84165; 85025; 99214

== ENCOUNTER 2020-11-10 15:09 | Outpatient (CLI) | payer MEDICARE, BC, SELFPAY ==
[2020-11-10 17:01] LABS: Anion Gap 17.1 (5-19); Blood Urea Nitrogen 28 mg/dL (8-23); Carbon Dioxide 24 mmol/L (22-29); Chloride 100 mmol/L (98-107); Glucose 93 mg/dL (65-115); Osmolality Calculated 287 mOsm/kg (285-295); Potassium 5.1 mmol/L (3.5-5.1); Sodium 136 mmol/L (136-145)
== END 2020-11-10 15:10 | disposition home or self-care (01) ==
LOC: LAB 15:14
PROVIDERS: PCP Nurse Practitioner Family; Visit Provider Nurse Practitioner Family
DX: D64.9 Anemia, unspecified (principal); K92.2 Gastrointestinal hemorrhage, unspecified
CPT/HCPCS: 80048

== ENCOUNTER → 2020-11-17 12:36 | Outpatient (BNVA) | payer MEDICARE, BC, SELFPAY | PROVIDERS: PCP Nurse Practitioner Family; Visit Provider Internal Medicine Hematology & Oncology | DX: Z01.812 Encounter for preprocedural laboratory examination (principal); Z20.822 Contact with and (suspected) exposure to COVID-19 | CPT/HCPCS: 87635 ==

== ENCOUNTER → 2020-11-24 13:12 | Outpatient (BNVA) | payer MEDICARE, BC, SELFPAY | PROVIDERS: PCP Nurse Practitioner Family; Visit Provider Internal Medicine Hematology & Oncology | DX: Z01.812 Encounter for preprocedural laboratory examination (principal); Z20.822 Contact with and (suspected) exposure to COVID-19 | CPT/HCPCS: 87635 ==

== ENCOUNTER 2020-11-29 09:54 | Day surgery (SDC) | payer MEDICARE, BC, SELFPAY ==
[2020-11-28 08:52] VITALS: BMI 23.1
--- NOTE | 2020-11-29 10:12 | ANES.PREANE2 ---
Pre-Anesthetic Assessment Pre-Anesthetic Assessment: Height/Weight: Height 1.75 m Weight 71.214 kg Preop Diagnosis: panendoscopy Proposed Procedure: Operation Date: 11/29/20 11:30 Proposed Procedures p Bone Marrow Biospy With Aspiration D50.9 R79.89(Not Applicable) - Saurabh Finch MD Familial anesthetic complications: none Was Beta Sea taken within 24 hours: Yes Was Clonidine taken within 24 hours: N/A Last intake: > 8 hrs Social: Social History: No alcohol and No tobacco Exam: Pre-Anes Outpt Exam: alert, oriented x 3, clear to auscultation bilaterally and regular rate & rhythm Airway: Cervical ROM: WNL MP: 2 Dentition: False CV/HEM: CV/HEM: Afib, CAD and HTN (CABG and sents in 2018, AVR in 2018, pacer/defibillator in 2018) Comments: Echo 2020 CONCLUSIONS 1. This is a technically difficult study. 2. Normal left ventricular cavity size. Moderate concentric left ventricular hypertrophy. Moderately decreased left ventricular systolic function. Left ventricular ejection fraction is estimated at 40 %. This study is inadequate for estimation of regional wall motion normality. Abnormal diastolic function. 3. Dilated right ventricle with somewhat decreased right ventricle systolic function. 4. Pulmonary artery pressure estimated at 37 mmHg. 5. Moderate to severe tricuspid valve regurgitation. : : Chronic renal Insufficiency GI: GI: GERD Metabolic: Metabolic: Thyroid Anesthetic Plan: ASA status: 4 Anesthesia: MAC Risk of > 500 ml blood loss (7ml/kg in children): No PFSH Anesthesia PFSH: Medical History Anemia Aortic stenosis ASHD (arteriosclerotic heart disease) Atrial fibrillation Controlled Carotid stenosis, bilateral CKD (chronic kidney disease) Dyslipidemia HTN (hypertension) Hypothyroidism Ischemic cardiomyopathy Mitral regurgitation Phimosis Pulmonary HTN SSS (sick sinus syndrome) Urinary retention Surgical History H/O esophagogastroduodenoscopy (10/20/20) History of coronary artery stent placement S/P CABG (coronary artery bypass graft) S/P cataract extraction S/P hernia repair S/P ICD (internal cardiac defibrillator) procedure S/P TAVR (transcatheter aortic valve replacement) Status post colonoscopy (10/20/20) diverticulosis, polyps Family History Mother , at age 82 CAD (coronary artery disease) Father , at age 69 Stroke Social History Smoking and tobacco status: never smoked Alcohol intake: never Adopted: No Caregiver/support person: No Lives independently: No Household members: spouse Marital status: Current occupational status: retired History of recent travel: No Data Anesthesia Cardiac Studies: No Data to Display
[2020-11-29 10:40] VITALS: BP 148/90; PULSE 65; RESP 18; TEMP 36.2; O2SAT 98
[2020-11-29] MEDS: sodium chloride 0.9% 1,000 ML 30 ML IV (10:59)
[2020-11-29 11:17] LABS: Basophils # 0.1 10^3/uL (0.0-0.1); Basophils % 0.9 %; Eosinophils # 0.2 10^3/uL (0.0-0.8); Eosinophils % 2.5 %; Hematocrit 33.1 % (42.0-52.0); Hemoglobin 9.9 g/dL (11.7-16.6); Lymphocytes # 1.4 10^3/uL (0.8-4.8); Lymphocytes % 17.9 %; Mean Corpuscular HGB Conc 29.9 g/dL (30.0-36.0); Mean Corpuscular Hemoglobin 27.3 pg (28.0-34.0); Mean Corpuscular Volume 91.4 fL (80-94); Mean Platelet Volume 11.1 fL (7.4-10.4); Monocytes # 0.9 10^3/uL (0.2-0.9); Monocytes % 12.2 %; Neutrophils # 4.99 10^3/uL (1.8-7.7); Neutrophils % 65.7 %; Nucleated Red Blood Cells % 0 %; Platelet Count 199 10^3/cmm (130-400); Red Blood Count 3.62 10^6/uL (4.1-5.3); Red Cell Distribution Width 17.2 % (12.1-15.1); White Blood Count 7.6 10^3/uL (4.0-10.0)
--- NOTE | 2020-11-29 12:52 | P.PCN_ITS ---
Bone Marrow Biopsy Bone Marrow Biopsy: I was consulted by [] office regarding bone marrow biopsy on Tank Saavedra []. Briefly, the patient is a 85 [] year old [male] with [anemia]. In the Outpatient Services Department, with nursing staff and laboratory technologists in attendance, the procedure was discussed with the patient. Appropriate consent form had been signed. Appropriate alternatives, benefits and risks of procedure were discussed with the patient and she was pre- operatively assessed with a history and physical by myself and cleared for the biopsy procedure. The patient did request IV sedation and that was provided by the Anesthesia Department. Under aseptic condition right posterior iliac area was cleaned and prepped, local anesthesia was given, about 15 cc of bone marrow aspirate and core biopsy was obtained, patient tolerated procedure well, specimen was sent for routine histopathology, flow cytometric/cytogenetics and FISH for MDS. Postprocedure nursing instructions were given Thank you for allowing me to participate in this patient's care and diagnosis. Coding Level of Care Code Acute Good [employer] Vendor for Rod Burnett
[2020-11-29 12:54] VITALS: BP 118/72; PULSE 64; RESP 16; TEMP 36.1; O2SAT 100
[2020-11-29 13:01] VITALS: BP 120/74; PULSE 58; RESP 16; O2SAT 100
--- NOTE | 2020-11-29 21:24 | ANE.PACU2 ---
Inpatient post-anesthesia follow up: Airway intact: Yes Vital signs: Temperature 97 F Pulse Rate 58 Respiratory Rate 16 Blood Pressure 120/74 Pulse Oximetry 100 Oxygen Delivery Me thod Room Air Oxygen Flow Rate Fraction of Inspir ed Oxygen Hydration adequate: Yes Nausea and vomiting: No Pain level: 2 Mental status: Baseline
[2020-12-01 08:17] LABS: Miscellaneous Test See Scanned Lab Rpt
[2020-12-12 13:00] LABS: Miscellaneous Test See Scanned Lab Rpt
== END 2020-11-29 13:34 | disposition home or self-care (01) ==
PROVIDERS: PCP Nurse Practitioner Family; Visit Provider Internal Medicine Hematology & Oncology
PROC: 07DT3ZX Extraction of Bone Marrow, Percutaneous Approach, Diagnostic (ICD-10-PCS; CPT 38222; principal; 2020-11-29 11:30)
DX: D64.9 Anemia, unspecified (principal); I48.91 Unspecified atrial fibrillation; I25.10 Atherosclerotic heart disease of native coronary artery without angina pectoris; I12.9 Hypertensive chronic kidney disease with stage 1 through stage 4 chronic kidney disease, or unspecified chronic kidney disease; N18.9 Chronic kidney disease, unspecified; Z95.1 Presence of aortocoronary bypass graft; Z95.5 Presence of coronary angioplasty implant and graft; Z95.0 Presence of cardiac pacemaker; K21.9 Gastro-esophageal reflux disease without esophagitis; E78.5 Hyperlipidemia, unspecified; E03.9 Hypothyroidism, unspecified; Z82.49 Family history of ischemic heart disease and other diseases of the circulatory system
CPT/HCPCS: 36415; 38222; 85025; 88184; 88188; 88237; 88264; 88305; 88367; 88374; 96360; 96361; J7030

== ENCOUNTER 2021-01-12 12:20 | Inpatient (IN) | payer MEDICARE, BC, SELFPAY ==
[2021-01-12] VITALS (7 sets, daily range): BP systolic 112–147; BP diastolic 62–99; PULSE 60–87; RESP 16–18; TEMP 36.4–36.6; O2SAT 96–100; BMI 26.4
--- NOTE | 2021-01-12 12:35 | ED_ITS ---
HPI - Male Genitourinary General: Chief complaint: ER Hold Stated complaint: Bleeding, sent by Hannah Time Seen by Provider: 01/12/21 12:24 History of Present Illness: HPI Narrative: 85-year-old male presents to the emergency room from Dr. Young's office after bleeding from the procedure. Patient has a history of Myelodysplastic syndrome additionally has a history of A. fib and he is on Pradaxa. He was usually been self cathing at home intermittently. He is having some urinary retention and a Wang was placed they were irrigating it urologist office need jaciel bloody drainage. He was sent to the ER. Dr. Young had called it evidently put some orders in because of difficulty edema or other not able to see them. Patient denies any recent illness denies any fever sweats chills rest of his medical record is reviewed in the old chart. MD Complaint: other (Hematuria) Onset (ago): minute(s) Duration: constant Severity: moderate Relieving factors: none Exacerbating factors: none Associated symptoms: Reports dysuria, hematuria and urinary retention; Deny fevers/chills, nausea, rash, swelling, urinary incontinence or vomiting Review of Systems Const: Denies: fever(s), chills, body aches, change in appetite, fatigue or malaise ENMT: Denies: throat pain, ear or mastoid pain, nasal discharge or nasal congestion Card: Denies: chest pain, edema, dyspnea on exertion or orthopnea Resp: Denies: dyspnea, productive cough or non-productive cough GI: Denies: nausea or vomiting : Reports: dysuria and hematuria; Denies: urinary incontinence Skin/Breast: Denies: rash or pruritus PFSH ED PFSH: Medical History Anemia Aortic stenosis ASHD (arteriosclerotic heart disease) Atrial fibrillation Controlled Carotid stenosis, bilateral CKD (chronic kidney disease) Dyslipidemia HTN (hypertension) Hypothyroidism Ischemic cardiomyopathy Mitral regurgitation Phimosis Pulmonary HTN SSS (sick sinus syndrome) Urinary retention Surgical History H/O esophagogastroduodenoscopy (10/20/20) History of coronary artery stent placement S/P CABG (coronary artery bypass graft) S/P cataract extraction S/P hernia repair S/P ICD (internal cardiac defibrillator) procedure S/P TAVR (transcatheter aortic valve replacement) Status post colonoscopy (10/20/20) diverticulosis, polyps Family History Mother , at age 82 CAD (coronary artery disease) Father , at age 69 Stroke Social History Smoking and tobacco status: never smoked Alcohol intake: never Adopted: No Caregiver/support person: No Lives independently: No Household members: spouse Marital status: Current occupational status: retired History of recent travel: No Physical Exam Const: COMMON NORMALS: no acute distress GENERAL APPEARANCE: cooperative and comfortable ORIENTATION/CONSCIOUSNESS: Yes awake, Yes oriented to person, Yes oriented to place and Yes oriented to time HENMT: COMMON NORMALS: normocephalic, atraumatic and hearing grossly normal bilaterally HEAD & SCALP: normocephalic and atraumatic Neck/C-Spine: COMMON NORMALS: no JVD Resp: COMMON NORMALS: normal respiratory effort, No retractions, No use of accessory muscles and clear to auscultation bilaterally AUSCULTATION: clear to auscultation bilaterally Cardio: COMMON NORMALS: no JVD, regular rate, regular rhythm and No murmurs present (Cardio) RATE: regular rate RHYTHM: regular rhythm GI: COMMON NORMALS: Soft to palpation and No hepatosplenomegaly present AUSCULTATION: Yes normoactive bowel sounds PALPATION: Yes Soft to palpation, No Tenderness to palpation present (GI), No Guarding due to palpation present (GI) and Yes No hepatosplenomegaly present Extremity: COMMON NORMALS: normal to inspection, capillary refill normal, no clubbing, cyanosis or edema, no calf tenderness and no pedal edema Neuro: SENSORIUM/ORIENTATION: Yes oriented to person, Yes oriented to place and Yes oriented to time Skin: COMMON NORMALS: no rashes or lesions noted GENERAL SKIN EXAM: no rashes or lesions noted Course Vital Signs: Vital signs: Vital Signs Temperature 98.8 F 01/14/21 04:00 Pulse Rate 62 01/14/21 04:00 Respiratory Rate 18 01/14/21 04:00 Blood Pressure 120/73 01/14/21 04:00 Pulse Oximetry 98 07/24/21 04:00 MDM - Male MDM Narrative: Medical decision making narrative: Wang irrigated until clots clear and then CBI started. We did have the appropriate bags of fluid here so we had to order more of the bladder had developed more clots it was reirrigated and then CBI started. Dr. Young was in the department to assist as well. We will go ahead and admit the patient Dr. Young he has already written orders. Lab Data: Labs: Lab Results 01/12/21 01/12/21 01/12/21 Range/Units 12:45 12:45 12:45 WBC 8.8 (4.0-10.0) 10^3/ uL RBC 3.58 L (4.1-5.3) 10^6/u L Hgb 8.7 L (11.7-16.6) g/dL Hct 29.6 L (42.0-52.0) % MCV 82.7 (80-94) fL MCH 24.3 L (28.0-34.0) pg MCHC 29.4 L (30.0-36.0) g/dL RDW 17.2 H (12.1-15.1) % Plt Count 280 (130-400) 10^3/c mm MPV 11.8 H (7.4-10.4) fL Neut % (Auto) 67.9 % Lymph % (Auto) 16.5 % [place] % (Auto) 11.2 % Eos % (Auto) 2.9 % Baso % (Auto) 1.0 % Neut # (Auto) 5.99 (1.8-7.7) 10^3/u L Lymph # (Auto) 1.5 (0.8-4.8) 10^3/u L [place] # (Auto) 1.0 H (0.2-0.9) 10^3/u L Eos # (Auto) 0.3 (0.0-0.8) 10^3/u L Baso # (Auto) 0.1 (0.0-0.1) 10^3/u L Nucleated RBC % (a uto) 0 % Nucleated RBCs # 0.0 /100WBC PT 22.70 H (12.1-14.9) SECO NDS INR 1.95 H (0.8-1.2) APTT 59.4 H (23.9-36.7) SECO NDS Sodium 137 (136-145) mmol/L Potassium 4.6 (3.5-5.1) mmol/L Chloride 101 (98-107) mmol/L Carbon Dioxide 23 (22-29) mmol/L Anion Gap 17.6 (5-19) BUN 40 H (8-23) mg/dL Creatinine 1.5 H (0.7-1.2) mg/dL GFR Calculation Not Reportable Glucose 111 (65-115) mg/dL Calculated Osmolal ity 294 (285-295) mOsm/k g Calcium 9.0 (8.5-10.5) mg/dL Total Bilirubin 0.7 (0.15-1.2) mg/dL AST 18 (0-40) U/L ALT 7 (0-41) U/L Alkaline Phosphata se 118 (40-130) IU/L Total Protein 6.8 (6.6-8.7) g/dL Albumin 4.2 (3.5-5.2) g/dL Globulin 2.6 (1.3-4.6) g/dL Blood Type Rho(D) Type Antibody Screen Crossmatch 01/12/21 Range/Units 12:45 WBC (4.0-10.0) 10^3/ uL RBC (4.1-5.3) 10^6/u L Hgb (11.7-16.6) g/dL Hct (42.0-52.0) % MCV (80-94) fL MCH (28.0-34.0) pg MCHC (30.0-36.0) g/dL RDW (12.1-15.1) % Plt Count (130-400) 10^3/c mm MPV (7.4-10.4) fL Neut % (Auto) % Lymph % (Auto) % [place] % (Auto) % Eos % (Auto) % Baso % (Auto) % Neut # (Auto) (1.8-7.7) 10^3/u L Lymph # (Auto) (0.8-4.8) 10^3/u L [place] # (Auto) (0.2-0.9) 10^3/u L Eos # (Auto) (0.0-0.8) 10^3/u L Baso # (Auto) (0.0-0.1) 10^3/u L Nucleated RBC % (a uto) % Nucleated RBCs # /100WBC PT (12.1-14.9) SECO NDS INR (0.8-1.2) APTT (23.9-36.7) SECO NDS Sodium (136-145) mmol/L Potassium (3.5-5.1) mmol/L Chloride (98-107) mmol/L Carbon Dioxide (22-29) mmol/L Anion Gap (5-19) BUN (8-23) mg/dL Creatinine (0.7-1.2) mg/dL GFR Calculation Glucose (65-115) mg/dL Calculated Osmolal ity (285-295) mOsm/k g Calcium (8.5-10.5) mg/dL Total Bilirubin (0.15-1.2) mg/dL AST (0-40) U/L ALT (0-41) U/L Alkaline Phosphata se (40-130) IU/L Total Protein (6.6-8.7) g/dL Albumin (3.5-5.2) g/dL Globulin (1.3-4.6) g/dL Blood Type O Positive Rho(D) Type Positive / 4+ Antibody Screen Negative Crossmatch See Detail Discharge Plan Discharge Patient Disposition: Admitted As Inpatient Admit Provider: Calixto Young Clinical Impression: Acute retention of urine, Anticoagulation adequate with anticoagulant therapy, BPH (benign prostatic hyperplasia), Anemia Condition: Stable Coding Level of Care Code ED Computer Numerical Control Grinder for Rod Burnett
[2021-01-12 12:51] LABS: Basophils # 0.1 10^3/uL (0.0-0.1); Eosinophils # 0.3 10^3/uL (0.0-0.8); Eosinophils % 2.9 %; Hematocrit 29.6 % (42.0-52.0); Hemoglobin 8.7 g/dL (11.7-16.6); Lymphocytes # 1.5 10^3/uL (0.8-4.8); Lymphocytes % 16.5 %; Mean Corpuscular HGB Conc 29.4 g/dL (30.0-36.0); Mean Corpuscular Hemoglobin 24.3 pg (28.0-34.0); Mean Corpuscular Volume 82.7 fL (80-94); Mean Platelet Volume 11.8 fL (7.4-10.4); Monocytes % 11.2 %; Neutrophils # 5.99 10^3/uL (1.8-7.7); Neutrophils % 67.9 %; Nucleated Red Blood Cells % 0 %; Platelet Count 280 10^3/cmm (130-400); Red Blood Count 3.58 10^6/uL (4.1-5.3); Red Cell Distribution Width 17.2 % (12.1-15.1); White Blood Count 8.8 10^3/uL (4.0-10.0)
[2021-01-12 13:04] LABS: INR 1.95 (0.8-1.2)
[2021-01-12 13:05] LABS: Partial Thromboplastin Time 59.4 SECONDS (23.9-36.7)
--- NOTE | 2021-01-12 13:10 | PC.NURSE ---
pt was flushed with 250 mls of NS at this time
[2021-01-12 13:44] LABS: Alanine Aminotransferase 7 U/L (0-41); Albumin Level 4.2 g/dL (3.5-5.2); Alkaline Phosphatase 118 IU/L (40-130); Aspartate Amino Transferase 18 U/L (0-40); Blood Urea Nitrogen 40 mg/dL (8-23); Carbon Dioxide 23 mmol/L (22-29); Chloride 101 mmol/L (98-107); Globulin 2.6 g/dL (1.3-4.6); Glucose 111 mg/dL (65-115); Osmolality Calculated 294 mOsm/kg (285-295); Sodium 137 mmol/L (136-145); Total Bilirubin 0.7 mg/dL (0.15-1.2); Total Protein 6.8 g/dL (6.6-8.7)
[2021-01-12 13:49] LABS: Anion Gap 17.6 (5-19); Potassium 4.6 mmol/L (3.5-5.1)
[2021-01-12 13:50] LABS: Add Urine Microscopic? YES; Bilirubin Urine Neg (Negative); Blood Urine 3+ (Negative); Glucose Urine UA Norm (Normal); Ketones Urine Negative (Negative); Leukocyte Esterase Urine Negative (Negative); Nitrate Urine Negative (Negative); Protein Urine 3+ (Negative); Urine Appearance Hazy (CLEAR); Urine Color Red (Yellow); Urobilinogen Urine Norm (Negative); pH Urine 7 (5-7)
[2021-01-12 13:53] LABS: Add Urine Culture? Yes; Bacteria Urine TRACE /hpf; RBC Urine TOO NUMEROUS TO CNT /hpf (0-2)
--- NOTE | 2021-01-12 15:22 | PC.NURSE ---
1000ml manual bladder irrigation as ordered by dr. dash. CBI started at 1510. pt reports understanding of calling with any bladder pressure or discomfort as well as any new or changing conditions.
--- NOTE | 2021-01-12 16:04 | PM.CONSULT ---
Providers/Reason For Consult Consulting Physician/Specialty*: Internal medicine Reason for Consult*: Management of medical comorbid conditions. Requesting Physician: Dr. 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 He was usually been self cathing at home intermittently. He is having some urinary retention and a Wang was placed they were irrigating it at urologist office noted jaciel bloody drainage. He was sent to the ER. Upon arrival in the ER he was continued on continuous bladder irrigation. Pertinent labs: WBC:8.8, H&H: 8.7/2.9, platelet count:280, serum sodium 137, serum potassium: 4.6 , BUN/creatinine:40/1.5. APTT: 59, PT:22.70, INR:1.95. Urinalysis: Gross hematuria. Review of Systems Const: Denies: fever(s), chills, body aches, change in appetite or diaphoresis Card: Denies: palpitations, edema, swelling of feet/ankles, dyspnea on exertion, orthopnea or leg pain with exertion Resp: Denies: dyspnea, productive cough, wheezing or pain on inspiration GI: Denies: abdominal pain, nausea, vomiting, diarrhea or constipation Musc: Denies: back pain, extremity pain or extremity swelling Neuro: Denies: headache(s), difficulty walking or confusion Meds/Allergies Home Medications and Allergies Home Medications Medication Instructions Recorded Confirmed Last Taken Type cholecalciferol (vitamin D3) 10 400 unit PO DAILY 09/22/19 01/12/21 01/12/21 History mcg (400 unit) capsule lycopene 10 mg capsule 10 mg PO DAILY 09/22/19 01/12/21 01/12/21 History nitroglycerin 0.4 mg sublingual 0.4 mg SUBLINGUAL Q5M PRN 09/22/19 01/12/21 Unknown History tablet levothyroxine 137 mcg capsule 150 mcg PO DAILY cap 12/24/19 01/12/21 01/12/21 History carvedilol 3.125 mg PO BID #60 tab 04/20/20 01/12/21 01/12/21 Rx lutein 40 mg capsule 40 mg PO DAILY 05/10/20 01/12/21 01/11/21 History omega-3 fatty acids 1,000 mg 1,000 mg PO DAILY cap 06/22/20 01/12/21 01/12/21 History capsule famotidine 20 mg tablet 20 mg PO BID 09/12/20 01/12/21 01/12/21 History loratadine 10 mg tablet 10 mg PO BEDTIME tab 09/12/20 01/12/21 01/11/21 History potassium chloride 20 mEq 20 meq PO BID #60 tab 09/22/20 01/12/21 01/12/21 Rx tablet,extended release(part/cryst) furosemide 40 mg PO BID 10/24/20 01/12/21 01/12/21 History tamsulosin 0.4 mg PO BEDTIME #30 cap 10/26/20 01/12/21 01/11/21 Rx spironolactone 25 mg PO DAILY 11/29/20 01/12/21 01/12/21 History atorvastatin 40 mg PO DAILY 01/12/21 01/12/21 01/11/21 History clopidogrel 75 mg PO BID 01/12/21 01/12/21 01/12/21 History dabigatran etexilate [Pradaxa] 75 mg PO BID 01/12/21 01/12/21 01/12/21 History methenamine hippurate 1 g PO BID 01/12/21 01/12/21 01/12/21 History Allergies Allergy/AdvReac Type Severity Reaction Status Date / Time fenofibrate Allergy Unknown Unknown Verified 01/12/21 12:48 levofloxacin Allergy Unknown Unknown Verified 01/12/21 12:48 niacin Allergy Unknown Unknown Verified 01/12/21 12:48 PFSH Acute PFSH: Medical History Anemia Aortic stenosis ASHD (arteriosclerotic heart disease) Atrial fibrillation Controlled Carotid stenosis, bilateral CKD (chronic kidney disease) Dyslipidemia HTN (hypertension) Hypothyroidism Ischemic cardiomyopathy Mitral regurgitation Phimosis Pulmonary HTN SSS (sick sinus syndrome) Urinary retention Surgical History H/O esophagogastroduodenoscopy (10/20/20) History of coronary artery stent placement S/P CABG (coronary artery bypass graft) S/P cataract extraction S/P hernia repair S/P ICD (internal cardiac defibrillator) procedure S/P TAVR (transcatheter aortic valve replacement) Status post colonoscopy (10/20/20) diverticulosis, polyps Family History Mother , at age 82 CAD (coronary artery disease) Father , at age 69 Stroke Social History Smoking and tobacco status: never smoked Alcohol intake: never Adopted: No Caregiver/support person: No Lives independently: No Household members: spouse Marital status: Current occupational status: retired History of recent travel: No Vitals/I&O/Wt Last Vital Signs Temp 97.9 F 01/12/21 12:26 Pulse 66 01/12/21 15:00 Resp 16 01/12/21 15:00 BP 135/70 01/12/21 15:00 Pulse Ox 100 01/12/21 15:00 01/12/21 01/12/21 01/12/21 06:59 14:59 22:59 Output Total 500 / 500 Balance -500 / -500 Weight last 48 hrs Weight 81.193 kg Physical Exam Const: COMMON NORMALS: patient oriented x3 HENMT: COMMON NORMALS: normocephalic and atraumatic HEAD & SCALP: normocephalic and atraumatic Resp: COMMON NORMALS: clear to auscultation bilaterally AUSCULTATION: clear to auscultation bilaterally Cardio: COMMON NORMALS: regular rate, regular rhythm, S1 normal heart sound present, S2 normal heart sound present, No gallops present (Cardio), No murmurs present (Cardio), No rub (Cardio) and Peripheral pulses 2+ throughout RATE: regular rate RHYTHM: regular rhythm HEART SOUNDS: S1 normal heart sound present and S2 normal heart sound present PERIPHERAL PULSES: Peripheral pulses 2+ throughout GI: COMMON NORMALS: Normal to inspection, nondistended, normoactive bowel sounds present, Soft to palpation, non-tender, No hepatosplenomegaly present and no masses AUSCULTATION: Yes normoactive bowel sounds PALPATION: Yes Soft to palpation and Yes No hepatosplenomegaly present RECTAL EXAM: Yes deferred Extremity: COMMON NORMALS: no clubbing, cyanosis or edema and no pedal edema Neuro: COMMON NORMALS: patient oriented x3 A&P Assessment and plan (1) Clot retention of urine: Currently on CBI: Urine is clearing up. Urology on board. Status: Acute (2) Atrial fibrillation: Currently heart rate is well controlled. Continue carvedilol 3.125 mg p.o. twice daily. Continue to hold Pradaxa. Status: Acute (3) Anemia: Chronic anemia: In the setting of MDS: Currently complicated by: Hematuria. Monitor CBC: Transfuse to maintain hemoglobin greater than 7. Status: Acute (4) CKD (chronic kidney disease): Currently serum creatinine at his baseline. Monitor BMP Status: Acute Qualifiers: Chronic kidney disease stage: unspecified stage Qualified Code(s): N18.9 - Chronic kidney disease, unspecified (5) HTN (hypertension): Blood pressure well controlled Status: Acute Qualifiers: Hypertension type: essential hypertension Qualified Code(s): I10 - Essential (primary) hypertension (6) Ischemic cardiomyopathy: Status: Acute (7) Aortic stenosis: Status: Acute (8) History of myelodysplastic syndrome: Status: Acute Additional A&P Information CODE STATUS: Full code DVT prophylaxis: Consult Attestations Medical Necessity Statement: Per primary team. Coding Level of Care Code Acute Historiography Teacher for Chg Fwd Diagnoses Clot retention of urine R33.8 Atrial fibrillation I48.91 Anemia D64.9 CKD (chronic kidney disease) N18.9 Chronic kidney disease stage: unspecified stage HTN (hypertension) I10 Hypertension type: essential hypertension Ischemic cardiomyopathy I25.5 Aortic stenosis I35.0 History of myelodysplastic syndrome Z86.2
--- NOTE | 2021-01-12 16:50 | PC.NURSE ---
pt bladder irrigated with 2000ml with output of 2200ml. 2 bags of 3000 ml hung at this time.
--- NOTE | 2021-01-12 18:09 | PC.NURSE ---
3rd 3000ml bag hung
[2021-01-12] MEDS: famotidine 20 mg Tablet PO (20:04)
[2021-01-12] MEDS: tamsulosin 0.4 mg Capsule PO (20:04)
[2021-01-12] MEDS: carvedilol 3.125 mg Tablet PO (20:04)
[2021-01-13] VITALS (13 sets, daily range): BP systolic 105–127; BP diastolic 59–80; PULSE 58–68; RESP 16–17; TEMP 36.4–37; O2SAT 92–100
[2021-01-13] MEDS: acetaminophen 325 mg Tablet 650 MG PO ×2 (01:01→15:42)
--- NOTE | 2021-01-13 06:59 | PM.PN ---
Subjective Subjective: Interval history: Urology follow-up: Hospital day #2. Aggressive irrigation in the emergency department cleared clots. Once CBI initiated had no severe issues related to clots formation or clearance. Feeling better this morning. Labs this morning are pending. No fever or chills., No abdominal pain, tolerating the catheter and CBI well. Its not exactly clear based on the scope in the clinic what the source of his bleeding was from but it appeared that it was mostly the prostate probably related to mild trauma from self-catheterization. He is cleared very well but he is at risk for rebleeding given the Pradaxa Recommendations: Continue CBI with titration to a low rate as tolerated, anticipate another 24 hours Appreciate the hospitalist service assistance in medical management. He will need to be discharged with a Wang catheter in place. Medications: Reviewed: Yes Vitals/I&O/Wt Last Vital Signs Temp 98.5 F 01/13/21 05:00 Pulse 63 01/13/21 05:00 Resp 16 01/13/21 05:00 BP 110/62 01/13/21 05:00 Pulse Ox 100 01/13/21 05:00 01/12/21 01/12/21 01/13/21 14:59 22:59 06:59 Output Total 500 / 500 Balance -500 / -500 Weight last 48 hrs Weight 179 lb Physical Exam Const: COMMON NORMALS: no acute distress, alert and well nourished GENERAL APPEARANCE: well kempt and well developed ORIENTATION/CONSCIOUSNESS: not confused Neck/C-Spine: COMMON NORMALS: full ROM Resp: COMMON NORMALS: normal respiratory effort EFFORT & INSPECTION: No labored and No Actively coughing GI: COMMON NORMALS: Soft to palpation, non-tender and no masses PALPATION: Yes Soft to palpation : BLADDER/KIDNEY EXAM: Yes bladder normal to palpation PENIS: normal penis MEATUS: meatus normal SCROTUM: No Scrotal tenderness present Neuro: SENSORIUM/ORIENTATION: Yes alert Psych: COMMON NORMALS: mental status grossly normal and Normal thought process present APPEARANCE: Yes grossly normal and Yes well kempt ATTITUDE: Yes calm and Yes engaged THOUGHT PROCESS: Normal thought process present Skin: COMMON NORMALS: no rashes or lesions noted and no jaundice GENERAL SKIN EXAM: no rashes or lesions noted Data : 01/12/21 12:45 01/12/21 12:45 A&P Assessment and plan (1) Clot retention of urine: Has done well after manual irrigation with continuation of CBI. Reviewed with nursing staff manual irrigation periodically throughout the day to make sure there are no more clots. Continue CBI with anticipation of approximately 24 more hours before attempting catheter alone. Status: Acute (2) Chronic anticoagulation: Certainly contributed to gross hematuria with self-catheterization. Status: Acute (3) Anemia: Acute blood loss on top of chronic anemia Labs pending today Status: Acute Attestations Medical Necessity Statement*: Requiring CBI and at high risk for rebleeding for all the reasons mentioned above Coding Level of Care Code Acute Lawn Care Professional for Rod Fwd Diagnoses Clot retention of urine R33.8 Chronic anticoagulation Z79.01 Anemia D64.9
[2021-01-13] MEDS: spironolactone 25 mg Tablet PO (08:29)
[2021-01-13] MEDS: carvedilol 3.125 mg Tablet PO ×2 (08:29→23:07)
[2021-01-13] MEDS: atorvastatin 40 mg Tablet PO (08:29)
[2021-01-13] MEDS: levothyroxine 150 mcg Tablet PO (08:29)
[2021-01-13] MEDS: famotidine 20 mg Tablet PO ×2 (08:30→23:07)
[2021-01-13 08:46] LABS: Basophils # 0.1 10^3/uL (0.0-0.1); Basophils % 1.1 %; Eosinophils # 0.2 10^3/uL (0.0-0.8); Eosinophils % 2.1 %; Hematocrit 29.3 % (42.0-52.0); Hemoglobin 7.7 g/dL (11.7-16.6); Lymphocytes # 1.3 10^3/uL (0.8-4.8); Lymphocytes % 17.1 %; Mean Corpuscular HGB Conc 26.3 g/dL (30.0-36.0); Mean Corpuscular Hemoglobin 24.3 pg (28.0-34.0); Mean Corpuscular Volume 92.4 fL (80-94); Mean Platelet Volume 11.7 fL (7.4-10.4); Monocytes % 12.7 %; Neutrophils # 4.98 10^3/uL (1.8-7.7); Neutrophils % 66.7 %; Nucleated Red Blood Cells % 0 %; Platelet Count 225 10^3/cmm (130-400); Red Blood Count 3.17 10^6/uL (4.1-5.3); Red Cell Distribution Width 17.4 % (12.1-15.1); White Blood Count 7.5 10^3/uL (4.0-10.0)
[2021-01-13 11:00] LABS: INR 1.75 (0.8-1.2)
[2021-01-13 11:07] LABS: Alanine Aminotransferase 7 U/L (0-41); Albumin Level 3.7 g/dL (3.5-5.2); Alkaline Phosphatase 103 IU/L (40-130); Anion Gap 14.2 (5-19); Aspartate Amino Transferase 14 U/L (0-40); Blood Urea Nitrogen 36 mg/dL (8-23); Calcium 8.8 mg/dL (8.5-10.5); Carbon Dioxide 24 mmol/L (22-29); Chloride 103 mmol/L (98-107); Globulin 2.2 g/dL (1.3-4.6); Glucose 100 mg/dL (65-115); Magnesium 1.9 mg/dL (1.7-2.3); Osmolality Calculated 292 mOsm/kg (285-295); Phosphorus 3.2 mg/dL (2.5-4.5); Potassium 4.2 mmol/L (3.5-5.1); Sodium 137 mmol/L (136-145); Total Bilirubin 0.6 mg/dL (0.15-1.2); Total Protein 5.9 g/dL (6.6-8.7)
--- NOTE | 2021-01-13 11:20 | P.PN_ITS ---
Subjective Subjective: Interval history: Patient was seen and examined this morning on CBI urine has cleared. Deny any active complain. Vital has been reviewed, am labs are pending. Medications: Reviewed: Yes Vitals/I&O/Wt Last Vital Signs Temp 98.4 F 01/13/21 07:56 Pulse 60 01/13/21 07:56 Resp 16 01/13/21 07:56 BP 114/72 01/13/21 07:56 Pulse Ox 98 01/13/21 07:56 01/12/21 01/13/21 01/13/21 22:59 06:59 14:59 Intake Total 250 / 250 Balance 250 / 250 Weight last 48 hrs Weight 81.193 kg Physical Exam Const: COMMON NORMALS: patient oriented x3 HENMT: COMMON NORMALS: normocephalic and atraumatic HEAD & SCALP: normocephalic and atraumatic Resp: COMMON NORMALS: clear to auscultation bilaterally AUSCULTATION: clear to auscultation bilaterally Cardio: COMMON NORMALS: regular rate, regular rhythm, S1 normal heart sound present, S2 normal heart sound present, No gallops present (Cardio), No murmurs present (Cardio), No rub (Cardio) and Peripheral pulses 2+ throughout RATE: regular rate RHYTHM: regular rhythm HEART SOUNDS: S1 normal heart sound present and S2 normal heart sound present PERIPHERAL PULSES: Peripheral pulses 2+ throughout GI: COMMON NORMALS: Normal to inspection, nondistended, normoactive bowel sounds present, Soft to palpation, non-tender, No hepatosplenomegaly present and no masses AUSCULTATION: Yes normoactive bowel sounds PALPATION: Yes Soft to palpation and Yes No hepatosplenomegaly present RECTAL EXAM: Yes deferred Extremity: COMMON NORMALS: no clubbing, cyanosis or edema and no pedal edema Neuro: COMMON NORMALS: patient oriented x3 Data : 01/14/21 07:12 01/14/21 07:12 A&P Assessment and plan (1) Atrial fibrillation: Currently heart rate is well controlled. Continue carvedilol 3.125 mg p.o. twice daily. Continue to hold Pradaxa. (2) Clot retention of urine: Currently on CBI: Urine is clearing up. Urology on board. (3) Anemia: Chronic normocytic anemia. Monitor CBC (4) CKD (chronic kidney disease): Currently serum creatinine at his baseline. Monitor BMP Qualifiers: Chronic kidney disease stage: unspecified stage Qualified Code(s): N18 .9 - Chronic kidney disease, unspecified (5) HTN (hypertension): Blood pressure well controlled Qualifiers: Hypertension type: essential hypertension Qualified Code(s): I10 - Essential (primary) hypertension (6) Ischemic cardiomyopathy: (7) Aortic stenosis: (8) History of myelodysplastic syndrome: Additional A&P Information CODE STATUS: Full code DVT prophylaxis: Attestations Medical Necessity Statement*: Patient needs to be in hospital for the management of clot retention of urine. Coding Level of Care Code Acute Inspector And Hand Packager for [facility] Fwd Diagnoses Atrial fibrillation I48.91 Clot retention of urine R33.8 Anemia D64.9 CKD (chronic kidney disease) N18.9 Chronic kidney disease stage: unspecified stage HTN (hypertension) I10 Hypertension type: essential hypertension Ischemic cardiomyopathy I25.5 Aortic stenosis I35.0 History of myelodysplastic syndrome Z86.2
[2021-01-13] MEDS: sodium chloride 0.9% (100 ml) 100 ML 25 ML (17:41)
[2021-01-13] MEDS: FUROsemide 10 mg/mL SDV 4mL 40 MG IVP (17:41)
--- NOTE | 2021-01-13 18:23 | PC.NURSE ---
Shift Summary Patient's CBI ran slow drip today. Urine remains pale yellow. Manually irrigated per verbal orders of Dr. Young this morning, no clots removed. Patient's hemoglobin decreased, unit of blood started per orders. Overall, no complaints throughout shift, bladder remained non-distended, no complaints of pain. Patient up to BSC to attempt bowel movement, was not successful.
[2021-01-13] MEDS: tamsulosin 0.4 mg Capsule PO (23:07)
[2021-01-14] VITALS (8 sets, daily range): BP systolic 114–123; BP diastolic 57–78; PULSE 60–66; RESP 16–18; TEMP 36.6–37.1; O2SAT 97–100
[2021-01-14 08:08] LABS: Basophils # 0.1 10^3/uL (0.0-0.1); Basophils % 0.9 %; Eosinophils # 0.2 10^3/uL (0.0-0.8); Eosinophils % 2.8 %; Hematocrit 31.7 % (42.0-52.0); Hemoglobin 9.6 g/dL (11.7-16.6); Lymphocytes # 1.3 10^3/uL (0.8-4.8); Lymphocytes % 17.2 %; Mean Corpuscular HGB Conc 30.3 g/dL (30.0-36.0); Mean Corpuscular Hemoglobin 25.6 pg (28.0-34.0); Mean Corpuscular Volume 84.5 fL (80-94); Mean Platelet Volume 11.8 fL (7.4-10.4); Monocytes # 1.2 10^3/uL (0.2-0.9); Monocytes % 14.9 %; Neutrophils # 4.97 10^3/uL (1.8-7.7); Neutrophils % 63.8 %; Nucleated Red Blood Cells % 0 %; Platelet Count 225 10^3/cmm (130-400); Red Blood Count 3.75 10^6/uL (4.1-5.3); Red Cell Distribution Width 16.7 % (12.1-15.1); White Blood Count 7.8 10^3/uL (4.0-10.0)
[2021-01-14] MEDS: spironolactone 25 mg Tablet PO (08:34)
[2021-01-14] MEDS: famotidine 20 mg Tablet PO (08:34)
[2021-01-14] MEDS: atorvastatin 40 mg Tablet PO (08:34)
[2021-01-14] MEDS: levothyroxine 150 mcg Tablet PO (08:34)
[2021-01-14] MEDS: carvedilol 3.125 mg Tablet PO (08:34)
[2021-01-14 08:57] LABS: Alanine Aminotransferase 6 U/L (0-41); Albumin Level 3.7 g/dL (3.5-5.2); Alkaline Phosphatase 105 IU/L (40-130); Anion Gap 15.1 (5-19); Aspartate Amino Transferase 15 U/L (0-40); Blood Urea Nitrogen 33 mg/dL (8-23); Calcium 8.5 mg/dL (8.5-10.5); Carbon Dioxide 21 mmol/L (22-29); Chloride 105 mmol/L (98-107); Globulin 2.4 g/dL (1.3-4.6); Glucose 79 mg/dL (65-115); Osmolality Calculated 290 mOsm/kg (285-295); Potassium 4.1 mmol/L (3.5-5.1); Sodium 137 mmol/L (136-145); Total Bilirubin 0.8 mg/dL (0.15-1.2); Total Protein 6.1 g/dL (6.6-8.7)
--- NOTE | 2021-01-14 09:36 | P.DS_ITS ---
Discharge Providers Date of Admission: 01/12/21 12:59 Date of Discharge: January 14, 2021 Attending Provider at Admission: Calixto Young MD Attending Provider at Discharge: Calixto Young MD Primary Care Provider: Jacquie Coto NP Diagnoses at Discharge Discharge Diagnosis (1) Clot retention of urine: Status: Resolved (2) Atrial fibrillation: Status: Chronic (3) Anemia: Status: Acute (4) CKD (chronic kidney disease): Status: Acute Qualifiers: Chronic kidney disease stage: unspecified stage Qualified Code(s): N18.9 - Chronic kidney disease, unspecified (5) HTN (hypertension): Status: Acute Qualifiers: Hypertension type: essential hypertension Qualified Code(s): I10 - Essential (primary) hypertension (6) Ischemic cardiomyopathy: Status: Acute (7) Aortic stenosis: Status: Acute (8) History of myelodysplastic syndrome: Status: Acute Reason for Visit Reason for Visit: Clot urinary retention Hospital Course Hospital Course He was admitted from my office for refractory gross hematuria and clot retention. In the office he presented with gross hematuria for a few days. He was still taking his blood thinners. He has a history of urinary retention requiring self clean intermittent catheterization which has been effectively marginally performed at best. I think both he and his had difficulties managing the requirements for his chronic urinary retention. In the office he underwent cystoscopy and clot evacuation with aggressive irrigation manually and clearance of the clots but with ongoing bleeding noted. For that reason he was direct admitted. There were no beds at the time and he was sent to the emergency department for continued care while waiting for a bed. In the emergency department CBI was initiated after manual irrigation which helped improve the clot situation from the coming problem again. He was maintained on CBI after reaching the floor and on hospital day #2 his urine had cleared dramatically to the point where his CBI could be weaned off. Urine remained clear off of CBI and he was discharged with Wang catheter in place on hospital day #3. He did receive 1 unit of blood because of anemia related to acute blood loss. Plavix and Pradaxa were held on admission and at discharge for 1 week per hospitalist. He has a large three-way Wang catheter in place and my plan is to remove that catheter and put a smaller catheter and midweek next week and then maintain that. We will consider longer-term management strategies and possibly including a suprapubic tube for long-term bladder management. I think this may have less problem than the self-catheterization which was probably the source of the irritation leading to the severe bleeding. Discharged in stable condition on 01/14/2021 Physical Exam Const: COMMON NORMALS: no acute distress, alert and well nourished GENERAL APPEARANCE: well kempt and well developed ORIENTATION/CONSCIOUSNESS: not confused HENMT: COMMON NORMALS: normocephalic and atraumatic HEAD & SCALP: normocephalic and atraumatic Eye: COMMON NORMALS: no scleral icterus Neck/C-Spine: COMMON NORMALS: full ROM GENERAL: Yes normal visual inspec tion Resp: COMMON NORMALS: normal respiratory effort EFFORT & INSPECTION: No labored and No Actively coughing : OTHER: Normal phallus. Urine is clear. Normal scrotum and scrotal contents Neuro: SENSORIUM/ORIENTATION: Yes alert Psych: APPEARANCE: Yes grossly normal and Yes well kempt ATTITUDE: Yes calm and Yes engaged Skin: COMMON NORMALS: no rashes or lesions noted and no jaundice GENERAL SKIN EXAM: no rashes or lesions noted Discharge Data Data Completed and Pending: Pending at discharge Category Date Time Status Complete Blood Co unt w/Auto AM LABS Lab 01/15/21 04:00 Ordered Comprehensive Met abolic Panel AM LA BS Lab 01/14/21 07:12 Results Comprehensive Met abolic Panel AM LA BS Lab 01/15/21 04:00 Ordered Urine Culture Sta t Lab 01/12/21 13:12 Results Labs from last 24 hours 01/14/21 01/14/21 01/13/21 07:12 07:12 10:31 WBC 7.8 RBC 3.75 L Hgb 9.6 L Hct 31.7 L MCV 84.5 MCH 25.6 L MCHC 30.3 RDW 16.7 H Plt Count 225 MPV 11.8 H Neut % (Auto) 63.8 Lymph % (Auto) 17.2 [place] % (Auto) 14.9 Eos % (Auto) 2.8 Baso % (Auto) 0.9 Neut # (Auto) 4.97 Lymph # (Auto) 1.3 [place] # (Auto) 1.2 H Eos # (Auto) 0.2 Baso # (Auto) 0.1 Nucleated RBC % (a uto) 0 Nucleated RBCs # 0.0 PT INR Sodium 137 137 Potassium 4.1 4.2 Chloride 105 103 Carbon Dioxide Pending 24 Anion Gap 15.1 14.2 BUN Pending 36 H Creatinine Pending 1.7 H GFR Calculation Not Reportable Not Reportable Glucose 79 100 Calculated Osmolal ity 290 292 Calcium 8.5 8.8 Phosphorus 3.2 Magnesium 1.9 Total Bilirubin 0.8 0.6 AST 15 14 ALT 6 7 Alkaline Phosphata se 105 103 Total Protein Pending 5.9 L Albumin 3.7 3.7 Globulin 2.4 2.2 Blood Type Rho(D) Type Antibody Screen Crossmatch 01/13/21 01/13/21 01/12/21 10:31 07:00 12:45 WBC 7.5 RBC 3.17 L Hgb 7.7 L Hct 29.3 L MCV 92.4 D MCH 24.3 L MCHC 26.3 L D RDW 17.4 H Plt Count 225 MPV 11.7 H Neut % (Auto) 66.7 Lymph % (Auto) 17.1 [place] % (Auto) 12.7 Eos % (Auto) 2.1 Baso % (Auto) 1.1 Neut # (Auto) 4.98 Lymph # (Auto) 1.3 [place] # (Auto) 1.0 H Eos # (Auto) 0.2 Baso # (Auto) 0.1 Nucleated RBC % (a uto) 0 Nucleated RBCs # 0.0 PT 20.80 H INR 1.75 H Sodium Potassium Chloride Carbon Dioxide Anion Gap BUN Creatinine GFR Calculation Glucose Calculated Osmolal ity Calcium Phosphorus Magnesium Total Bilirubin AST ALT Alkaline Phosphata se Total Protein Albumin Globulin Blood Type O Positive Rho(D) Type Positive / 4+ Antibody Screen Negative Crossmatch See Detail Vitals: Last Vital Signs Temp 98.8 F 01/14/21 04:00 Pulse 62 01/14/21 04:00 Resp 18 01/14/21 04:00 BP 120/73 01/14/21 04:00 Pulse Ox 98 01/14/21 04:00 Discharge Plan Discharge Patient Disposition: Home Condition: Stable Prescriptions: Continued lutein 40 mg capsule 40 mg PO DAILY RF: 0 potassium chloride 20 mEq tablet,ER particles/crystals 20 meq PO BID Qty: 60 RF: 3 nitroglycerin [Nitrostat] 0.4 mg tablet, sublingual 0.4 mg SUBLINGUAL Q5M PRN (Reason: Chest Pain) RF: 0 cholecalciferol (vitamin D3) 400 unit capsule 400 unit PO DAILY RF: 0 lycopene 10 mg capsule 10 mg PO DAILY RF: 0 levothyroxine 137 mcg capsule 150 mcg PO DAILY RF: 0 omega-3 fatty acids [Fish Oil Concentrate] 1,000 mg capsule 1,000 mg PO DAILY RF: 0 famotidine [Pepcid] 20 mg tablet 20 mg PO BID RF: 0 loratadine [Claritin] 10 mg tablet 10 mg PO BEDTIME RF: 0 carvedilol 3.125 mg Tablet 3.125 mg PO BID Qty: 60 RF: 0 furosemide 40 mg tablet 40 mg PO BID RF: 0 tamsulosin 0.4 mg Capsule 0.4 mg PO BEDTIME Qty: 30 RF: 0 spironolactone 25 mg tablet 25 mg PO DAILY RF: 0 atorvastatin 40 mg tablet 40 mg PO DAILY RF: 0 methenamine hippurate 1 gram tablet 1 g PO BID RF: 0 Held clopidogrel 75 mg tablet 75 mg PO BID RF: 0 Hold Instructions: Resume on 01/21/21. Pradaxa 75 mg capsule 75 mg PO BID RF: 0 Hold Instructions: Resume on 01/21/21. Discharge Orders: Discharge Order (Routine); Ordered 01/14/21 Ordered By: Brenton Andrea Other Ambulatory Orders: Complete Blood Count w/Auto (Routine) Timeframe: 1 Week Location: Determined by Patient Ordered By: Brenton Andrea Referrals: Calixto Young MD [Physician] - 01/17/21 (Remove 22 Dutch and changed to an 18 Dutch Wang catheter.) Discharge Diet: Cardiac Discharge Activity: Increase activity as tolerated Patient Instructions: Acute Hematuria (GEN), Anticoagulation Therapy, Opioid Safety Activity Restrictions/Additional Instructions: 1. Please avoid heavy lifting and straining. 2. The catheter needs to stay in place. He will be taught before discharge how to change from a leg bag which secures the catheter to the leg and a night bag which can hold more volume so that it has to be emptied less at night. 3. We will switch catheters when I see you in the office from a large bore catheter to a smaller bore catheter which should be more comfortable. 4. It is very likely that your bladder will need to be drained long-term with a catheter. Discharge Attestations Time Spent in Discharge Care*: greater than 30 min Quality Metrics Clinical Quality Measures During this hospital stay, did patient experience: None Coding Level of Care Code Acute Chg FW DC note Exam Detailed Diagnoses Clot retention of urine R33.8 Atrial fibrillation I48.91 Anemia D64.9 CKD (chronic kidney disease) N18.9 Chronic kidney disease stage: unspecified stage HTN (hypertension) I10 Hypertension type: essential hypertension Ischemic cardiomyopathy I25.5 Aortic stenosis I35.0 History of myelodysplastic syndrome Z86.2
--- NOTE | 2021-01-14 11:44 | P.PN_ITS ---
Subjective Subjective: Interval history: S/P 2 Us PRBC trasfusion in the last 24 Hrs for drop in hemoglobin.Post transfusion cbc is stable. No other acute events , deny any abdominal pain, nausea, vomiting,fever. Medications: Reviewed: Yes Vitals/I&O/Wt Last Vital Signs Temp 98.0 F 01/14/21 08:00 Pulse 60 01/14/21 08:00 Resp 17 01/14/21 08:00 BP 119/77 01/14/21 08:00 Pulse Ox 100 01/14/21 08:00 01/13/21 01/14/21 01/14/21 22:59 06:59 14:59 Intake Total 500 / 750 450 / 1200 Balance 500 / 750 450 / 1200 Weight last 48 hrs Weight 81.193 kg Physical Exam Const: COMMON NORMALS: patient oriented x3 HENMT: COMMON NORMALS: normocephalic and atraumatic HEAD & SCALP: normocephalic and atraumatic Resp: COMMON NORMALS: clear to auscultation bilaterally AUSCULTATION: clear to auscultation bilaterally Cardio: COMMON NORMALS: regular rate, regular rhythm, S1 normal heart sound present, S2 normal heart sound present, No gallops present (Cardio), No murmurs present (Cardio), No rub (Cardio) and Peripheral pulses 2+ throughout RATE: regular rate RHYTHM: regular rhythm HEART SOUNDS: S1 normal heart sound present and S2 normal heart sound present PERIPHERAL PULSES: Peripheral pulses 2+ throughout GI: COMMON NORMALS: Normal to inspection, nondistended, normoactive bowel sounds present, Soft to palpation, non-tender, No hepatosplenomegaly present and no masses AUSCULTATION: Yes normoactive bowel sounds PALPATION: Yes Soft to palpation and Yes No hepatosplenomegaly present RECTAL EXAM: Yes deferred Extremity: COMMON NORMALS: no clubbing, cyanosis or edema and no pedal edema Neuro: COMMON NORMALS: patient oriented x3 Data : 01/14/21 07:12 01/14/21 07:12 Micro: Microbiology 01/12/21 13:12 Urine Culture - Final Urine,Clean Catch A&P Assessment and plan (1) Atrial fibrillation: Currently heart rate is well controlled. Continue carvedilol 3.125 mg p.o. twice daily. Continue to hold Pradaxa for a week. He will follow with repeat CBC and if H/H is stable,please resume pradaxa. (2) Clot retention of urine: Currently on CBI: Urine is clearing up. Urology on board. (3) Anemia: Chronic normocytic anemia. Monitor CBC (4) CKD (chronic kidney disease): Currently serum creatinine at his baseline. Monitor BMP Qualifiers: Chronic kidney disease stage: unspecified stage Qualified Code(s): N18.9 - Chronic kidney disease, unspecified (5) HTN (hypertension): Blood pressure well controlled Qualifiers: Hypertension type: essential hypertension Qualified Code(s): I10 - Essential (primary) hypertension (6) Ischemic cardiomyopathy: (7) Aortic stenosis: (8) History of myelodysplastic syndrome: Additional A&P Information CODE STATUS: Full code DVT prophylaxis: Attestations Medical Necessity Statement*: Patient is being discharged today. Coding Level of Care Code Acute Independent Living Instructor for [facility] Fwd Diagnoses Atrial fibrillation I48.91 Clot retention of urine R33.8 Anemia D64.9 CKD (chronic kidney disease) N18.9 Chronic kidney disease stage: unspecified stage HTN (hypertension) I10 Hypertension type: essential hypertension Ischemic cardiomyopathy I25.5 Aortic stenosis I35.0 History of myelodysplastic syndrome Z86.2
== END 2021-01-14 13:45 | disposition home or self-care (01) | DRG 700 ==
LOC: ER 12:35 → MEDSURG 17:39
PROVIDERS: Internal Medicine; Admitting Provider Urology; Emergency Provider Family Medicine; PCP Nurse Practitioner Family; Visit Provider Urology
DX: T83.83XA Hemorrhage due to genitourinary prosthetic devices, implants and grafts, initial encounter (principal); R31.0 Gross hematuria; N32.89 Other specified disorders of bladder; R33.9 Retention of urine, unspecified; Y73.1 Therapeutic (nonsurgical) and rehabilitative gastroenterology and urology devices associated with adverse incidents; F03.90 Unspecified dementia, unspecified severity, without behavioral disturbance, psychotic disturbance, mood disturbance, and anxiety; I12.9 Hypertensive chronic kidney disease with stage 1 through stage 4 chronic kidney disease, or unspecified chronic kidney disease; N18.9 Chronic kidney disease, unspecified; E78.5 Hyperlipidemia, unspecified; I25.5 Ischemic cardiomyopathy; I25.10 Atherosclerotic heart disease of native coronary artery without angina pectoris; Z95.5 Presence of coronary angioplasty implant and graft; Z95.1 Presence of aortocoronary bypass graft; Z95.3 Presence of xenogenic heart valve; I48.91 Unspecified atrial fibrillation; D46.9 Myelodysplastic syndrome, unspecified; E03.9 Hypothyroidism, unspecified; I34.0 Nonrheumatic mitral (valve) insufficiency; I27.20 Pulmonary hypertension, unspecified; Z95.810 Presence of automatic (implantable) cardiac defibrillator
CPT/HCPCS: 36415; 36430; 80053; 81001; 83735; 84100; 85025; 85610; 85730; 86850; 86900; 86920; 87086; 96374; 99285; J1940; P9016

== ENCOUNTER → 2021-01-20 12:53 | Outpatient (BNVA) | payer MEDICARE, BC, SELFPAY | PROVIDERS: PCP Nurse Practitioner Family; Visit Provider Nurse Practitioner Family | DX: Z20.822 Contact with and (suspected) exposure to COVID-19 (principal); J06.9 Acute upper respiratory infection, unspecified; Z20.828 Contact with and (suspected) exposure to other viral communicable diseases | CPT/HCPCS: 87635 ==

== ENCOUNTER 2021-01-23 18:45 | Inpatient (IN) | payer MEDICARE, BC, SELFPAY ==
--- NOTE | 2021-01-23 18:54 | XRR_ITS ---
PROCEDURE INFORMATION: Exam: XR Chest Exam date and time: 01/23/2021 6:54 PM Age: 85 years old Clinical indication: Cough and fever and shortness of breath; Prior surgery; Surgery type: Pacer, heart; Additional info: Cough, fever, SOB. Covid + TECHNIQUE: Imaging protocol: XR of the chest. Views: 1 view. COMPARISON: CR XR chest 2V* [id number] 09/22/2020 1:02 PM FINDINGS: Tubes, catheters and devices: Sternotomy wires with AICD/pacer device. Lungs: Linear atelectasis at the left lung base. Evaluation of the left lung base is limited. No evidence of focal consolidation elsewhere. Pleural spaces: Unremarkable. No pleural effusion. No pneumothorax. Heart/Mediastinum: Unremarkable. No cardiomegaly. Bones/joints: Moderate degenerative narrowing of the right glenohumeral and acromioclavicular joints. The visualized osseous structures are intact. XR/XR chest 1V portable [id number] IMPRESSION: Linear atelectasis at the left lung base. Evaluation of the left lung base is limited, without focal consolidation seen elsewhere within the lungs.
--- NOTE | 2021-01-23 19:02 | CTR_ITS ---
PROCEDURE INFORMATION: Exam: CT Head Without Contrast Exam date and time: 01/23/2021 7:02 PM Age: 85 years old Clinical indication: Altered mental status/memory loss; Patient HX: Covid +/fall last night; Additional info: Confusion TECHNIQUE: Imaging protocol: Computed tomography of the head without contrast. Radiation optimization: All CT scans at this facility use at least one of these dose optimization techniques: automated exposure control; mA and/or kV adjustment per patient size (includes targeted exams where dose is matched to clinical indication); or iterative reconstruction. COMPARISON: CT head wo con* [id number] 04/16/2020 10:21 AM RADIATION DOSE METRICS: Total DLP (mGy-cm): 2312.55 FINDINGS: Brain: Moderate diffuse cerebral atrophy. Low attenuation signal within the periventricular and deep white matter tracts consistent with chronic small vessel ischemic disease. No acute intracranial hemorrhage. No midline shift. Cerebral ventricles: No ventriculomegaly. Paranasal sinuses: Trace air-fluid levels within the left maxillary sinus with mucosal thickening. Mucosal thickening of the right maxillary sinus. There is also mucosal thickening of the sphenoid sinuses and ethmoid air cells. Mastoid air cells: Visualized mastoid air cells are well aerated. Bones/joints: Unremarkable. No acute fracture. Soft tissues: Unremarkable. CT/CT head wo con* [id number] IMPRESSION: 1. No acute intracranial abnormality. 2. Multifocal sinusitis including trace air-fluid levels in the left maxillary sinus. 3. Moderate diffuse cerebral atrophy and sequela of chronic small vessel ischemic disease. Radiation Dose CTDIVOL = (mGy): DLP = 2312.55 (mGy-cm)
--- NOTE | 2021-01-23 19:03 | ED_ITS ---
HPI - General Adult General: Chief complaint: COVID symptoms Stated complaint: FEVER, COUGH, COVID Time Seen by Provider: 01/23/21 18:57 History of Present Illness: HPI narrative: This patient is an 85-year-old male who presents to the emergency department with a Covid shortness of breath. There was diagnosed 5 days ago. Patient reportedly has had decreased p.o. intake and has not been eating or drinking. Become short of breath and confused. Patient does have some confusion noted at this time. Patient states that not answer questions appropriately. EMS reports the patient a pulse ox in 80s upon arrival and they placed the patient on nasal cannula. Patient at this time is O2 sat is 99% on 2 L by nasal cannula Onset (ago): unknown Associated symptoms: Reports confusion, dyspnea and malaise; Deny chest pain, headache(s), nausea, rash, palpitations or vomiting Review of Systems General: Reports: 10 or more systems reviewed and unremarkable except in HPI and below Const: Reports: change in appetite and malaise; Denies: fever(s), chills, body aches or fatigue Eyes: Denies: change in vision or blurry vision ENMT: Denies: throat pain, hoarseness or mouth pain Card: Denies: chest pain, palpitations, irregular heart rhythm, edema, swelling of feet/ankles or lightheadedness Resp: Reports: dyspnea and non-productive cough; Denies: productive cough, wheezing or pain on inspiration GI: Denies: abdominal pain, nausea or vomiting : Denies: flank pain, dysuria, urinary frequency, urinary urgency or urinary hesitancy Musc: Denies: neck pain, back pain, extremity pain, extremity swelling, joint pain, joint swelling, joint redness, joint warmth or limited range of motion Skin/Breast: Denies: rash, pruritus, erythema or skin tenderness Neuro: Reports: confusion; Denies: headache(s), numbness in extremities or weakness in extremities Psych: Denies: anxiety or depression PFSH ED PFSH: Medical History Acute retention of urine Anemia Anemia Anticoagulation adequate with anticoagulant therapy Direct thrombin inhibitor Pradaxa Aortic stenosis ASHD (arteriosclerotic heart disease) Atrial fibrillation Controlled Atrial fibrillation BPH (benign prostatic hyperplasia) Carotid stenosis, bilateral Chronic anticoagulation CKD (chronic kidney disease) Clot retention of urine Dyslipidemia History of myelodysplastic syndrome HTN (hypertension) Hypothyroidism Ischemic cardiomyopathy Mitral regurgitation Phimosis Pulmonary HTN SSS (sick sinus syndrome) Urinary retention Surgical History H/O esophagogastroduodenoscopy (10/20/20) History of coronary artery stent placement S/P CABG (coronary artery bypass graft) S/P cataract extraction S/P hernia repair S/P ICD (internal cardiac defibrillator) procedure S/P TAVR (transcatheter aortic valve replacement) Status post colonoscopy (10/20/20) diverticulosis, polyps Family History Mother , at age 82 CAD (coronary artery disease) Father , at age 69 Stroke Social History Alcohol intake: never Adopted: No Caregiver/support person: No Lives independently: No Household members: spouse Marital status: Current occupational status: retired History of recent travel: No Physical Exam Const: COMMON NORMALS: no acute distress, average body habitus, no limitations, healthy appearing, alert and well nourished EXAM LIMITATIONS: altered mental status ORIENTATION/CONSCIOUSNESS: Yes oriented to person and Yes oriented to place; not oriented to time HENMT: COMMON NORMALS: normocephalic, atraumatic, hearing grossly normal b ilaterally, external ears normal, EAC's normal, TM's normal bilaterally, Normal external nose present, Normal nasal mucous membranes and turbinates present, moist oral mucous membranes, oropharynx normal, dentition normal and gingiva normal HEAD & SCALP: normocephalic and atraumatic NOSE: Normal external nose present and Normal nasal mucous membranes and turbinates present EXTERNAL EAR: Yes external ears normal EXTERNAL AUDITORY CANAL: EAC's normal TYMPANIC MEMBRANE: TM's normal bilaterally Neck/C-Spine: COMMON NORMALS: full ROM, no lymphadenopathy, supple, no meningeal signs, no JVD, Thyroid normal and No carotid bruits THYROID: Thyroid normal Chest: COMMONS NORMALS: normal inspection of the chest, normal palpation of entire chest wall, normal inspection of the breasts and normal palpation of the breasts Breast/axilla inspection: Yes normal inspection of the breasts BREAST/AXILLA PALPATION: Yes normal palpation of the breasts Resp: COMMON NORMALS: normal respiratory effort, No retractions, No use of accessory muscles, clear to auscultation bilaterally and percussion normal AUSCULTATION: clear to auscultation bilaterally PERCUSSION: percussion normal Cardio: COMMON NORMALS: no JVD, regular rate, regular rhythm, S1 normal heart sound present, S2 normal heart sound present, No gallops present (Cardio), No clicks present (Cardio), No murmurs present (Cardio), No rub (Cardio) and Peripheral pulses 2+ throughout RATE: regular rate RHYTHM: regular rhythm HEART SOUNDS: S1 normal heart sound present and S2 normal heart sound present PERIPHERAL PULSES: Peripheral pulses 2+ throughout GI: COMMON NORMALS: Normal to inspection, nondistended, normoactive bowel soun ds present, Soft to palpation, non-tender, No hepatosplenomegaly present, no masses and no bruits PALPATION: Yes Soft to palpation and Yes No hepatosplenomegaly present : COMMON NORMALS: Yes no CVA tenderness BLADDER/KIDNEY EXAM: Yes no CVA tenderness Back/Pelvis: COMMON NORMALS: no CVA tenderness, thoracic and lumbar spine normal to inspection, no thoracic nor lumbar tenderness, thoraco-lumbar ROM normal and straight leg raise negative bilaterally Extremity: COMMON NORMALS: normal to inspection, full ROM, capillary refill normal, no joint enlargement, no clubbing, cyanosis or edema, no calf tenderness and no pedal edema Neuro: SENSORIUM/ORIENTATION: Yes alert, Yes oriented to person, Yes oriented to place and No oriented to time MENINGEAL SIGNS: Yes no meningeal signs Course Consultations: Consultation #1: I did discuss at length with Dr. Dickson lua. He states it does not appear to be any kind of acute STEMI. We'll continue to monitor the patient. Time: 21:26 Consultation #2: I did discuss at length with Dr. Wilson. Hospitalist. He agrees with current treatment. He will meet the patient 1 additional orders. Time: 22:06 Consultation #3: I did discuss at length with Dr. Tommy lua again we again discussed patient's EKG and elevated troponin concerning for STEMI versus non- STEMI. Cardiology believes that this is non-STEMI. Due to other medical issues. He agrees with heparin but will see patient As a consult Time: 22:07 Vital Signs: Vital signs: Vital Signs Temperature 98.4 F 01/23/21 19:06 Pulse Rate 65 01/23/21 20:23 Respiratory Rate 16 01/23/21 20:20 Blood Pressure 110/70 01/23/21 19:06 Pulse Oximetry 95 01/23/21 20:41 MDM - General Adult MDM Narrative: Medical decision making narrative: This patient is an 85-year-old male who presents to the emergency department with a Covid shortness of breath. There was diagnosed 5 days ago. Patient reportedly has had decreased p.o. intake and has not been eating or drinking. Become short of breath and confused. Patient does have some confusion noted at this time. Patient states that not answer questions appropriately. EMS reports the patient a pulse ox in 80s upon arrival and they placed the patient on nasal cannula. Patient at this time is O2 sat is 99% on 2 L by nasal cannula I did discuss at length with Dr. Wilson. Hospitalist. He agrees with current treatment. He will meet the patient 1 additional orders. I did discuss at length with Dr. Sanders cardiology again we again discussed patient's EKG and elevated troponin concerning for STEMI versus non-STEMI. Cardiology believes that this is non-STEMI. Due to other medical issues. He agrees with heparin but will see patient As a consult Lab Data: Labs: Lab Results 01/23/21 01/23/21 01/23/21 Range/Units 20:07 20:33 20:36 WBC 16.8 H (4.0-10.0) 10^3/ uL RBC 4.28 (4.1-5.3) 10^6/u L Hgb 10.2 L (11.7-16.6) g/dL Hct 33.9 L (42.0-52.0) % MCV 79.2 L (80-94) fL MCH 23.8 L (28.0-34.0) pg MCHC 30.1 (30.0-36.0) g/dL RDW 17.5 H (12.1-15.1) % Plt Count 393 (130-400) 10^3/c mm MPV 11.1 H (7.4-10.4) fL Neut % (Auto) 78.8 % Lymph % (Auto) 6.7 % Pershing % (Auto) 11.0 % Eos % (Auto) 2.2 % Baso % (Auto) 0.5 % Neut # (Auto) 13.21 H (1.8-7.7) 10^3/u L Lymph # (Auto) 1.1 (0.8-4.8) 10^3/u L Pershing # (Auto) 1.9 H (0.2-0.9) 10^3/u L Eos # (Auto) 0.4 (0.0-0.8) 10^3/u L Baso # (Auto) 0.1 (0.0-0.1) 10^3/u L Nucleated RBC % (a uto) 0.1 % Nucleated RBCs # 0.0 /100WBC PT (12.1-14.9) SECO NDS INR (0.8-1.2) APTT (23.9-36.7) SECO NDS D-Dimer (0-0.59) ug/mIFE U Specimen Type Arterial Sample Site Radial, right ABG pH 7.46 H (7.35-7.45) ABG pCO2 20.3 L (35-45) mmHg ABG pO2 72.5 L (80.0-100.0) mmH g ABG HCO3 14.5 L (22-26) mmol/L ABG O2 Saturation 96.3 ABG Base Excess -7.7 L (-2.0-2.0) mmol/ L [place] Test Pos A-a O2 Gradient 6.6 (5-10) mmHg Hematocrit 30.4 L (42-52) % Hgb O2 Saturation 94.5 L (95-100) % Carboxyhemoglobin 1.2 (0.4-20.1) %THgb Methemoglobin 0.7 (0.4-1.5) % Total Hemoglobin 9.9 L (14-18) g/dL Sodium 127.0 L (131-143) mmol/L Potassium 4.8 (3.5-5.0) mmol/L Glucose 107.0 (70-115) mg/dL Ionized Calcium 1.2 (1.1-1.4) mmol/L FiO2 21.0 % Scre[employer]ter ID yorna Chloride (98-107) mmol/L Carbon Dioxide (22-29) mmol/L Anion Gap (5-19) BUN (8-23) mg/dL Creatinine (0.7-1.2) mg/dL GFR Calculation Calculated Osmolal ity (285-295) mOsm/k g Lactic Acid (0.5-2.2) mmol/L Calcium (8.5-10.5) mg/dL Total Bilirubin (0.15-1.2) mg/dL AST (0-40) U/L ALT (0-41) U/L Alkaline Phosphata se (40-130) IU/L Ammonia (16-60) umol/L Creatine Kinase (39-308) U/L Troponin T Gen 5 n g/L (0-15) ng/L C-Reactive Protein (0.0-4.9) mg/L NT-Pro-B Natriuret Pep (0-450) pg/mL Total Protein (6.6-8.7) g/dL Albumin (3.5-5.2) g/dL Globulin (1.3-4.6) g/dL Urine Color Yellow (Yellow) Urine Appearance Hazy A (CLEAR) Urine pH 6 (5-7) Ur Specific Gravit y 1.010 (1.005-1.030) Urine Protein 3+ H (Negative) Urine Glucose (UA) Norm (Normal) Urine Ketones Negative (Negative) Urine Blood 2+ H (Negative) Urine Nitrate Negative (Negative) Urine Bilirubin Neg (Negative) Urine Urobilinogen Norm (Negative) mg/dL Ur Leukocyte Luci ase 1+ H (Negative) Urine RBC 5-10 H (0-2) /hpf Urine WBC >100 H (0-5) /hpf Ur Squamous Epith Cells 0-4 H (0-5) /hpf Amorphous Sediment Not Reportable Urine Bacteria Trace (NONE) /hpf 01/23/21 01/23/21 01/23/21 Range/Units 20:36 20:36 20:36 WBC (4.0-10.0) 10^3/ uL RBC (4.1-5.3) 10^6/u L Hgb (11.7-16.6) g/dL Hct (42.0-52.0) % MCV (80-94) fL MCH (28.0-34.0) pg MCHC (30.0-36.0) g/dL RDW (12.1-15.1) % Plt Count (130-400) 10^3/c mm MPV (7.4-10.4) fL Neut % (Auto) % Lymph % (Auto) % Pershing % (Auto) % Eos % (Auto) % Baso % (Auto) % Neut # (Auto) (1.8-7.7) 10^3/u L Lymph # (Auto) (0.8-4.8) 10^3/u L Pershing # (Auto) (0.2-0.9) 10^3/u L Eos # (Auto) (0.0-0.8) 10^3/u L Baso # (Auto) (0.0-0.1) 10^3/u L Nucleated RBC % (a uto) % Nucleated RBCs # /100WBC PT 17.20 H (12.1-14.9) SECO NDS INR 1.36 H (0.8-1.2) APTT 49.4 H (23.9-36.7) SECO NDS D-Dimer 0.81 H (0-0.59) ug/mIFE U Specimen Type Sample Site ABG pH (7.35-7.45) ABG pCO2 (35-45) mmHg ABG pO2 (80.0-100.0) mmH g ABG HCO3 (22-26) mmol/L ABG O2 Saturation ABG Base Excess (-2.0-2.0) mmol/ L [place] Test A-a O2 Gradient (5-10) mmHg Hematocrit (42-52) % Hgb O2 Saturation (95-100) % Carboxyhemoglobin (0.4-20.1) %THgb Methemoglobin (0.4-1.5) % Total Hemoglobin (14-18) g/dL Sodium 124 L (131-143) mmol/L Potassium 5.0 (3.5-5.0) mmol/L Glucose 97 (70-115) mg/dL Ionized Calcium (1.1-1.4) mmol/L FiO2 % Screw Machine Tool Setter ID Chloride 93 L (98-107) mmol/L Carbon Dioxide 17 L (22-29) mmol/L Anion Gap 19.0 (5-19) BUN 34 H (8-23) mg/dL Creatinine 1.7 H (0.7-1.2) mg/dL GFR Calculation Not Reportable Calculated Osmolal ity 266 L (285-295) mOsm/k g Lactic Acid 2.2 (0.5-2.2) mmol/L Calcium 8.9 (8.5-10.5) mg/dL Total Bilirubin 1.0 (0.15-1.2) mg/dL AST 24 (0-40) U/L ALT 9 (0-41) U/L Alkaline Phosphata se 172 H (40-130) IU/L Ammonia (16-60) umol/L Creatine Kinase 202 (39-308) U/L Troponin T Gen 5 n g/L (0-15) ng/L C-Reactive Protein 43.4 H (0.0-4.9) mg/L NT-Pro-B Natriuret Pep 2747 H (0-450) pg/mL Total Protein 6.9 (6.6-8.7) g/dL Albumin 4.0 (3.5-5.2) g/dL Globulin 2.9 (1.3-4.6) g/dL Urine Color (Yellow) Urine Appearance (CLEAR) Urine pH (5-7) Ur Specific Gravit y (1.005-1.030) Urine Protein (Negative) Urine Glucose (UA) (Normal) Urine Ketones (Negative) Urine Blood (Negative) Urine Nitrate (Negative) Urine Bilirubin (Negative) Urine Urobilinogen (Negative) mg/dL Ur Leukocyte Luci ase (Negative) Urine RBC (0-2) /hpf Urine WBC (0-5) /hpf Ur Squamous Epith Cells (0-5) /hpf Amorphous Sediment Urine Bacteria (NONE) /hpf 01/23/21 01/23/21 Range/Units 20:36 20:36 WBC (4.0-10.0) 10^3/ uL RBC (4.1-5.3) 10^6/u L Hgb (11.7-16.6) g/dL Hct (42.0-52.0) % MCV (80-94) fL MCH (28.0-34.0) pg MCHC (30.0-36.0) g/dL RDW (12.1-15.1) % Plt Count (130-400) 10^3/c mm MPV (7.4-10.4) fL Neut % (Auto) % Lymph % (Auto) % Pershing % (Auto) % Eos % (Auto) % Baso % (Auto) % Neut # (Auto) (1.8-7.7) 10^3/u L Lymph # (Auto) (0.8-4.8) 10^3/u L Pershing # (Auto) (0.2-0.9) 10^3/u L Eos # (Auto) (0.0-0.8) 10^3/u L Baso # (Auto) (0.0-0.1) 10^3/u L Nucleated RBC % (a uto) % Nucleated RBCs # /100WBC PT (12.1-14.9) SECO NDS INR (0.8-1.2) APTT (23.9-36.7) SECO NDS D-Dimer (0-0.59) ug/mIFE U Specimen Type Sample Site ABG pH (7.35-7.45) ABG pCO2 (35-45) mmHg ABG pO2 (80.0-100.0) mmH g ABG HCO3 (22-26) mmol/L ABG O2 Saturation ABG Base Excess (-2.0-2.0) mmol/ L [place] Test A-a O2 Gradient (5-10) mmHg Hematocrit (42-52) % Hgb O2 Saturation (95-100) % Carboxyhemoglobin (0.4-20.1) %THgb Methemoglobin (0.4-1.5) % Total Hemoglobin (14-18) g/dL Sodium (131-143) mmol/L Potassium (3.5-5.0) mmol/L Glucose (70-115) mg/dL Ionized Calcium (1.1-1.4) mmol/L FiO2 % Screw Machine Tool Setter ID Chloride (98-107) mmol/L Carbon Dioxide (22-29) mmol/L Anion Gap (5-19) BUN (8-23) mg/dL Creatinine (0.7-1.2) mg/dL GFR Calculation Calculated Osmolal ity (285-295) mOsm/k g Lactic Acid (0.5-2.2) mmol/L Calcium (8.5-10.5) mg/dL Total Bilirubin (0.15-1.2) mg/dL AST (0-40) U/L ALT (0-41) U/L Alkaline Phosphata se (40-130) IU/L Ammonia 26 (16-60) umol/L Creatine Kinase (39-308) U/L Troponin T Gen 5 n g/L 128 H* (0-15) ng/L C-Reactive Protein (0.0-4.9) mg/L NT-Pro-B Natriuret Pep (0-450) pg/mL Total Protein (6.6-8.7) g/dL Albumin (3.5-5.2) g/dL Globulin (1.3-4.6) g/dL Urine Color (Yellow) Urine Appearance (CLEAR) Urine pH (5-7) Ur Specific Gravit y (1.005-1.030) Urine Protein (Negative) Urine Glucose (UA) (Normal) Urine Ketones (Negative) Urine Blood (Negative) Urine Nitrate (Negative) Urine Bilirubin (Negative) Urine Urobilinogen (Negative) mg/dL Ur Leukocyte Luci ase (Negative) Urine RBC (0-2) /hpf Urine WBC (0-5) /hpf Ur Squamous Epith Cells (0-5) /hpf Amorphous Sediment Urine Bacteria (NONE) /hpf Imaging Data^: CT Head: Attestation: I personally reviewed and interpreted this imaging study as follows: Radiologist's impression: FINDINGS: Brain: Moderate diffuse cerebral atrophy. Low attenuation signal within the periventricular and deep white matter tracts consistent with chronic small vessel ischemic disease. No acute intracranial hemorrhage. No midline shift. Cerebral ventricles: No ventriculomegaly. Paranasal sinuses: Trace air-fluid levels within the left maxillary sinus with mucosal thickening. Mucosal thickening of the right maxillary sinus. There is also mucosal thickening of the sphenoid sinuses and ethmoid air cells. Mastoid air cells: Visualized mastoid air cells are well aerated. Bones/joints: Unremarkable. No acute fracture. Soft tissues: Unremarkable. CT/CT head wo con* [id number] IMPRESSION: 1. No acute intracranial abnormality. 2. Multifocal sinusitis including trace air-fluid levels in the left maxillary sinus. 3. Moderate diffuse cerebral atrophy and sequela of chronic small vessel ischemic disease. CXR: Attestation: I personally reviewed and interpreted this imaging study as follows: Radiologist's impression: FINDINGS: Tubes, catheters and devices: Sternotomy wires with AICD/pacer device. Lungs: Linear atelectasis at the left lung base. Evaluation of the left lung base is limited. No evidence of focal consolidation elsewhere. Pleural spaces: Unremarkable. No pleural effusion. No pneumothorax. Heart/Mediastinum: Unremarkable. No cardiomegaly. Bones/joints: Moderate degenerative narrowing of the right glenohumeral and acromioclavicular joints. The visualized osseous structures are intact. XR/XR chest 1V portable [id number] IMPRESSION: Linear atelectasis at the left lung base. Evaluation of the left lung base is limited, without focal consolidation seen elsewhere within the lungs. EKG Data^: EKG 1: Attestation: I personally reviewed and interpreted this EKG as follows: EKG interpretation date: 01/23/21 EKG interpretation time: 21:04 Prior EKG tracings: not available for review Interpretation: Pacemaker rhythm. Some questionable elevation of ST elevation. The lateral leads heart rate 60 a lot of motion artifact do not believe this is an acute [place] initial troponin 84. We did for this to cardiology Dr. Forman Computer generated interpretation: Chest X-Ray 01/23/21 18:54 IMPRESSION: Linear atelectasis at the left lung base. Evaluation of the left lung base is limited, without focal consolidation seen elsewhere within the lungs. Head CT 01/23/21 19:02 IMPRESSION: 1. No acute intracranial abnormality. 2. Multifocal sinusitis including trace air-fluid levels in the left maxillary sinus. 3. Moderate diffuse cerebral atrophy and sequela of chronic small vessel ischemic disease. Radiation Dose CTDIVOL = (mGy): DLP = 2312.55 (mGy-cm) Discharge Plan Discharge Patient Disposition: Admitted As Inpatient Clinical Impression: Acute alteration in mental status, Urinary tract infection, COVID-19, Fall, Non-ST elevated myocardial infarction (non-STEMI), Acute urinary retention Condition: Stable Coding Level of Care Code ED Body Trimmer Upholsterer for Rod Burnett Exam Comprehensive
[2021-01-23 19:06] VITALS: BP 110/70; PULSE 63; RESP 18; TEMP 36.9; O2SAT 97; BMI 23.6
--- NOTE | 2021-01-23 20:01 | PC.PHAR ---
PT UNABLE TO CONFIRM MEDICATIONS. I TRIED CALLING PT'S BUT WAS UNABLE TO REACH HER TO CONFIRM MEDICATIONS. GOING BY MEDICATION HISTORY AND PHARMACY LIST.
[2021-01-23 20:18] LABS: ABG PCO2 20.3 mmHg (35-45); ABG PH Result 7.46 (7.35-7.45); Alveolar-Arterial Oxygen Gradi 6.6 mmHg (5-10); Arterial Blood Gas Hematocrit 30.4 % (42-52); Base Excess ABG -7.7 mmol/L (-2.0-2.0); Blood Gas Allen Test Pos; Blood Gas Sample Site Radial, right; Blood Gas Sample Type Arterial; Carboxyhemoglobin 1.2 %THgb (0.4-20.1); HCO3 ABG 14.5 mmol/L (22-26); HGB O2 Sat 94.5 % (95-100); Ionized Calcium Level - ABG 1.2 mmol/L (1.1-1.4); Methemoglobin 0.7 % (0.4-1.5); Oxygen Saturation ABG 96.3; PO2 ABG 72.5 mmHg (80.0-100.0); Potassium Level - ABG 4.8 mmol/L (3.5-5.0); Total Hemoglobin 9.9 g/dL (14-18)
[2021-01-23 20:20] VITALS: PULSE 65; RESP 16; O2SAT 97
[2021-01-23 20:23] VITALS: PULSE 65
[2021-01-23 20:41] VITALS: O2SAT 95
[2021-01-23 20:45] LABS: Basophils # 0.1 10^3/uL (0.0-0.1); Basophils % 0.5 %; Eosinophils # 0.4 10^3/uL (0.0-0.8); Eosinophils % 2.2 %; Hematocrit 33.9 % (42.0-52.0); Hemoglobin 10.2 g/dL (11.7-16.6); Lymphocytes # 1.1 10^3/uL (0.8-4.8); Lymphocytes % 6.7 %; Mean Corpuscular HGB Conc 30.1 g/dL (30.0-36.0); Mean Corpuscular Hemoglobin 23.8 pg (28.0-34.0); Mean Corpuscular Volume 79.2 fL (80-94); Mean Platelet Volume 11.1 fL (7.4-10.4); Monocytes # 1.9 10^3/uL (0.2-0.9); Neutrophils # 13.21 10^3/uL (1.8-7.7); Neutrophils % 78.8 %; Nucleated Red Blood Cells % 0.1 %; Platelet Count 393 10^3/cmm (130-400); Red Blood Count 4.28 10^6/uL (4.1-5.3); Red Cell Distribution Width 17.5 % (12.1-15.1); White Blood Count 16.8 10^3/uL (4.0-10.0)
[2021-01-23 20:51] LABS: Urine Appearance Hazy (CLEAR); Urine Color Yellow (Yellow); pH Urine 6 (5-7)
[2021-01-23 20:52] LABS: Add Urine Culture? Yes; Add Urine Microscopic? YES; Bacteria Urine TRACE /hpf; Bilirubin Urine Neg (Negative); Blood Urine 2+ (Negative); Glucose Urine UA Norm (Normal); Ketones Urine Negative (Negative); Leukocyte Esterase Urine 1+ (Negative); Nitrate Urine Negative (Negative); Protein Urine 3+ (Negative); Squamous Epithelial Cell Urine 0-4 /hpf (0-5); Urobilinogen Urine Norm (Negative); WBC Urine >100 /hpf (0-5)
--- NOTE | 2021-01-23 20:54 | ECG_ITS ---
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 rita's medical [id number]
[2021-01-23] MEDS: dexamethasone 10 mg/mL INJ 6 MG IV (20:58)
[2021-01-23] MEDS: sodium chloride 0.9% 500 ML IV (20:59)
[2021-01-23 21:04] LABS: INR 1.36 (0.8-1.2)
[2021-01-23 21:11] LABS: Ammonia 26 umol/L (16-60); Lactic Sepsis W/Reflex 2.2 mmol/L (0.5-2.2)
[2021-01-23 21:20] LABS: Partial Thromboplastin Time 49.4 SECONDS (23.9-36.7)
[2021-01-23 21:21] LABS: Alanine Aminotransferase 9 U/L (0-41); Alkaline Phosphatase 172 IU/L (40-130); Aspartate Amino Transferase 24 U/L (0-40); Blood Urea Nitrogen 34 mg/dL (8-23); C Reactive Protein 43.4 mg/L (0.0-4.9); Calcium 8.9 mg/dL (8.5-10.5); Carbon Dioxide 17 mmol/L (22-29); Chloride 93 mmol/L (98-107); Creatine Phosphokinase 202 U/L (39-308); Globulin 2.9 g/dL (1.3-4.6); Glucose 97 mg/dL (65-115); NT Pro B Type Natriuretic Pept 2747 pg/mL (0-450); Osmolality Calculated 266 mOsm/kg (285-295); Sodium 124 mmol/L (136-145); Total Protein 6.9 g/dL (6.6-8.7)
[2021-01-23 21:22] LABS: D Dimer 0.81 ug/mIFEU (0-0.59)
[2021-01-23 21:23] LABS: Creatinine Clr Calc Pharmacy 32.1058
[2021-01-23] MEDS: cefTRIAXone 1,000 MG in sodium chloride 0.9% (plus) 50 ML 100 MG IV (21:35)
[2021-01-23 21:49] LABS: Troponin T (5th) Once 128 ng/L (0-15)
[2021-01-23 22:09] VITALS: BP 120/59; RESP 21; O2SAT 96
--- NOTE | 2021-01-23 22:22 | PM.HP ---
Providers/Chief Complaint Primary Care Provider: Jacquie Coto NP Chief Complaint: FEVER, COUGH, COVID History of Present Illness Tank Saavedra is a 85 year old male who has history of dementia, hematuria, BPH, chronic indwelling catheter currently being managed by Dr. Young, tested positive on 01/20 with COVID-19, presented today from home with chief complaint of confusion and a fall. Patient is not able to provide any information. I called his daughter to get more information. Daughter is stating that normally he would turn his room light on whenever he wakes up however this was not done today and when his checked on him he found him on the floor, face facing towards the carpet, his walker and bedside commode had also fallen on the floor. He was assisted by son to get up, he ate afterwards and took his meds and drank decent amount of fluids with it. He was complaining of dysuria today. He never complained of any chest pain, no evidence of vomiting. His mentation is fluctuant. Because of these concerns he was brought to the hospital for the evaluation Diagnosis in the ER revealed NSTEMI, UTI, he was saturating well on room air, afebrile, oriented to himself only, septic EKG showing paced rhythm, troponin above 100 however trending down, EMILY, BNP 27[address] CT head unremarkable for acute finding Review of Systems General: Reports: ROS unobtainable due to medical condition ( dementia) Medications/Allergies Home Medications Medication Instructions Recorded Confirmed Last Taken Type cholecalciferol (vitamin D3) 10 400 unit PO DAILY 09/22/19 01/23/21 01/12/21 History mcg (400 unit) capsule lycopene 10 mg capsule 10 mg PO DAILY 09/22/19 01/23/21 01/12/21 History nitroglycerin 0.4 mg sublingual 0.4 mg SUBLINGUAL Q5M PRN 09/22/19 01/23/21 Unknown History tablet levothyroxine 137 mcg capsule 150 mcg PO DAILY cap 12/24/19 01/23/21 01/12/21 History carvedilol 3.125 mg PO BID #60 tab 04/20/20 01/23/21 01/12/21 Rx lutein 40 mg capsule 40 mg PO DAILY 05/10/20 01/23/21 01/11/21 History omega-3 fatty acids 1,000 mg 1,000 mg PO DAILY cap 06/22/20 01/23/21 01/12/21 History capsule famotidine 20 mg tablet 20 mg PO BID 09/12/20 01/23/21 01/12/21 History loratadine 10 mg tablet 10 mg PO BEDTIME tab 09/12/20 01/23/21 01/11/21 History potassium chloride 20 mEq 20 meq PO BID #60 tab 09/22/20 01/23/21 01/12/21 Rx tablet,extended release(part/cryst) furosemide 40 mg PO BID 10/24/20 01/23/21 01/12/21 History tamsulosin 0.4 mg PO BEDTIME #30 cap 10/26/20 01/23/21 01/11/21 Rx spironolactone 25 mg PO DAILY 11/29/20 01/23/21 01/12/21 History Pradaxa 75 mg PO BID 01/12/21 01/23/21 01/12/21 History atorvastatin 40 mg PO DAILY 01/12/21 01/23/21 01/11/21 History clopidogrel 75 mg PO BID 01/12/21 01/23/21 01/12/21 History methenamine hippurate 1 g PO BID 01/12/21 01/23/21 01/12/21 History ascorbic acid (vitamin C) 1,000 mg 1 g PO BID tab 01/17/21 01/23/21 Unknown History tablet Allergies Allergy/AdvReac Type Severity Reaction Status Date / Time fenofibrate Allergy Unknown Unknown Verified 01/23/21 19:11 levofloxacin Allergy Unknown Unknown Verified 01/23/21 19:11 niacin Allergy Unknown Unknown Verified 01/23/21 19:11 PFSH Acute PFSH: Medical History Acute retention of urine Anemia Anemia Anticoagulation adequate with anticoagulant therapy Direct thrombin inhibitor Pradaxa Aortic stenosis ASHD (arteriosclerotic heart disease) Atrial fibrillation Controlled Atrial fibrillation BPH (benign prostatic hyperplasia) Carotid stenosis, bilateral Chronic anticoagulation CKD (chronic kidney disease) Clot retention of urine Dyslipidemia History of myelodysplastic syndrome HTN (hypertension) Hypothyroidism Ischemic cardiomyopathy Mitral regurgitation Phimosis Pulmonary HTN SSS (sick sinus syndrome) Urinary retention Surgical History H/O esophagogastroduodenoscopy (10/20/20) History of coronary artery stent placement S/P CABG (coronary artery bypass graft) S/P cataract extraction S/P hernia repair S/P ICD (internal cardiac defibrillator) procedure S/P TAVR (transcatheter aortic valve replacement) Status post colonoscopy (10/20/20) diverticulosis, polyps Family History Mother , at age 82 CAD (coronary artery disease) Father , at age 69 Stroke Social History Alcohol intake: never Adopted: No Caregiver/support person: No Lives independently: No Household members: spouse Marital status: Current occupational status: retired History of recent travel: No Vitals/I&O/Wt Last Vital Signs Temp 98.4 F 01/23/21 19:06 Pulse 65 01/23/21 20:23 Resp 21 H 01/23/21 22:09 BP 120/59 01/23/21 22:09 Pulse Ox 96 01/23/21 22:09 Weight last 48 hrs Weight 72.575 kg Physical Exam Narrative: EXAM NARRATIVE: Patient was laying in left lateral position, saturating well on room air Appears stated age Oriented to himself only Able to tell me that he is in [place] He mostly says yes to most of my questions Clinically looks dehydrated S1, S2 No murmur appreciated Bilateral breath sounds without any adventitious rhonchi or crackles Abdomen soft Wang catheter draining clear concentrated urine Neuro exam limited No joint swelling or cellulitis of skin no rash Urinary Catheter Management^: Wang: Cath Placed During This Visit: yes Urinary Catheter Date of Insertion: 01/23/21 Urinary Catheter Time of Insertion: 20:37 Data : 01/23/21 20:36 01/23/21 20:36 Micro: Microbiology 01/23/21 20:36 Blood Culture - Preliminary Blood SPECIMEN COLLECTED 01/23/21 20:34 Blood Culture - Preliminary Blood SPECIMEN COLLECTED A&P Assessment and plan (1) Acute alteration in mental status: Status: Acute (2) Urinary tract infection: Status: Acute (3) COVID-19: Status: Acute (4) Fall: Status: Acute (5) Non-ST elevated myocardial infarction (non-STEMI): Status: Acute (6) Hyponatremia: Status: Acute (7) Pneumonia: Status: Acute Additional A&P Information Sepsis UTI and left sided community-acquired pneumonia Start ceftriaxone and azithromycin Judicious use of fluids considering history of heart failure, 40%.EF However clinically does look dry Sepsis criteria met with tachypnea, leukocytosis Encephalopathy related to sepsis Hemodynamically stable COVID-19 pneumonia Not requiring oxygen, would use Decadron only for now Tested positive on 01/20 Non-ST segment elevation [place] Patient sustained a fall at home Requested pacemaker evaluation History him on EKG, troponin IV 100 with negative delta Start heparin drip request echo to see wall motion abnormality Cardio consulted by the ER physician EMILY Seems secondary to dehydration Hold diuretics for now Gentle fluid hydration considering sepsis Hyponatremia This seems to be an acute finding on 01/14 sodium 137 Clinically dehydrated, hold diuretics Gentle fluid hydration for now Dementia Acute worsening due to pneumonia and UTI Full code as per my discussion with his daughter Cardiac diet DVT prophylaxis currently on heparin drip Attestations Medical Necessity Statement*: Anticipating stay in the hospital cross more than 2 midnights for sepsis, EMILY Time Spent in Patient Care: 16 - 35 minutes Coding Level of Care Code Acute Safety Coordinator for g Fwd Diagnoses Acute alteration in mental status R41.82 Urinary tract infection N39.0 COVID-19 U07.1 Fall W19.XXXA Non-ST elevated myocardial infarction (non-STEMI) I21.4 Hyponatremia E87.1 Pneumonia J18.9
[2021-01-23 22:28] LABS: Reflex Lactate Order REFLEX LACTIC ORDERD
--- NOTE | 2021-01-23 22:28 | PC.NURSE ---
CALLED PTS DAUGHTER SIXTO AND INFORMED HER THAT WE WOULD BE KEEPING THE PT IN THE HOSPITAL. PTS FAMILY WAS UPDATED ON THE REASON FOR ADMISSION AND RESULTS.
[2021-01-23 23:13] LABS: Troponin 5 2HR Delta -15.7 ABS# (0-10)
[2021-01-23 23:14] LABS: Troponin 5 2HR 112.3 ng/L (0-15)
[2021-01-23 23:34] VITALS: BP 107/58; PULSE 61; RESP 18; O2SAT 98
[2021-01-23] MEDS: heparin 5,000 unit/mL INJ 1 mL 4000 UNIT IVP (23:39)
[2021-01-24] VITALS (59 sets, daily range): BP systolic 106–142; BP diastolic 63–85; PULSE 60–77; RESP 12–27; TEMP 36.6–37.1; O2SAT 95–100
--- NOTE | 2021-01-24 00:10 | USCV_ITS ---
Tank Saavedra Age: 85 Gender: M : 1935 Exam Date: 01/24/2021 13:04 Ordering Phys: Bo Wilson MD Technologist: Exam [place] [facility] [place]: NSTEMI BP: 114 / 76 HR: Rhythm: Sinus Technical Quality: Adequate MEASUREMENTS (Male / Female) Normal Values 2D ECHO LV Diastolic Diameter PLAX 4.2 cm 4.2 - 5.9 / 3.9 - 5.3 cm LV Systolic Diameter PLAX 2.7 cm IVS Diastolic Thickness 1.2 cm 0.6 - 1.0 / 0.6 - 0.9 cm IVS Systolic Thickness 1.4 cm LVPW Diastolic Thickness 1.2 cm 0.6 - 1.0 / 0.6 - 0.9 cm LVPW Systolic Thickness 1.6 cm LVOT Diameter 2.3 cm LV Ejection Fraction 2D Teich 65.5 % LV Ejection Fraction MOD 2C 55.1 % LV Ejection Fraction 2C AL 54.3 % LA Diameter 4.8 cm LA Width 4.3 cm LA Height 4.9 cm RA Width 4.5 cm RA Height 4.9 cm Aorta at Sinotubular Diameter 2.7 cm FINDINGS Left Ventricle Normal left ventricular cavity size. Moderately decreased left ventricular systolic function. Left ventricular ejection fraction is estimated at 40%. Moderate global hypokinesis. Abnormal septal motion consistent with conduction abnormality. Right Ventricle Moderately dilated right ventricle with moderately decreased right ventricular systolic function. Pacemaker wire visualized in the right ventricle. Right Atrium Right atrium not well visualized. Left Atrium Moderately increased left atrial size. Mitral Valve Moderately thickened mitral valve. Aortic Valve Bioprosthetic aortic valve not well visualized. Tricuspid Valve Tricuspid valve not well visualized. Pulmonic Valve Pulmonic valve not well visualized. Pericardium No pericardial effusion. Aorta Aorta not well visualized. CONCLUSIONS 1. This is a limited and technically difficult echocardiogram. 2. Normal left ventricular cavity size. Moderately decreased left ventricular systolic function. Left ventricular ejection fraction is estimated at 40%. Moderate global hypokinesis. Abnormal septal motion consistent with conduction abnormality. 3. When compared to previous echocardiogram dated 10/17/2020, there may not have been any significant change. Irma Granados MD (Electronically Signed) Final Date: 24 January 2021 17:59 S
[2021-01-24] MEDS: heparin drip 25,000 UNIT/500 ML PREMIX 21 UNIT IV (00:55)
[2021-01-24] MEDS: sodium chloride 0.9% 1,000 ML 75 ML IV (00:55)
[2021-01-24] MEDS: aspirin 325 mg EC Tablet PO (00:56)
[2021-01-24 02:39] LABS: Troponin 5 6HR 99.26 ng/L (0-15)
[2021-01-24 02:46] LABS: Procalcitonin 0.14 ng/mL (0-0.5); Thyroid Stimulating Hormone 0.51 uIU/mL (0.27-4.20)
[2021-01-24 07:55] LABS: Magnesium 1.7 mg/dL (1.7-2.3)
--- NOTE | 2021-01-24 08:46 | PM.CONSULT ---
Providers/Reason For Consult Consulting Physician/Specialty*: Cardiology Reason for Consult*: Abnormal cardiac markers Attending Physician: Juan Montoya MD Primary Care Provider: Jacquie Coto NP History of Present Illness History of Present Illness Tank Saavedra is a 85 year old male past medical history significant for bioprosthetic aortic valve, dementia, permanent pacemaker placement, moderately depressed LV function, indwelling catheter history of urinary tract infection and recent COVID-19 infection was admitted with mental status changes upon admission he was noted to have abnormal cardiac markers and multiple episodes of atrial tachycardia, it is the reason that we have been asked to assist in her care. Please note that due to Covid infection I have not personally examined the patient however the history physical examination as per our medicine colleague. Twelve-lead EKG was consistent with paced rhythm, no significant ST changes suggestive of acute coronary syndrome on the basis of EKG however due to paced rhythm cannot be interpreted. Review of Systems General: Reports: 10 or more systems reviewed and unremarkable except in HPI and below and ROS unobtainable due to medical condition ( dementia) Const: Reports: change in appetite and malaise; Denies: fever(s), chills, body aches or fatigue Eyes: Denies: change in vision or blurry vision ENMT: Denies: throat pain, enlarged tonsils, hoarseness or mouth pain Card: Denies: chest pain, palpitations, irregular heart rhythm, edema, swelling of feet/ankles or lightheadedness Resp: Reports: dyspnea and non-productive cough; Denies: productive cough, wheezing or pain on inspiration GI: Denies: abdominal pain, nausea or vomiting : Denies: flank pain, dysuria, urinary frequency, urinary urgency or urinary hesitancy Musc: Denies: neck pain, back pain, extremity pain, extremity swelling, joint pain, joint swelling, joint redness, joint warmth or limited range of motion Skin/Breast: Denies: rash, pruritus, erythema or skin tenderness Neuro: Reports: confusion; Denies: headache(s), numbness in extremities or weakness in extremities Psych: Reports: sleeping more; Denies: anxiety or depression All/Imm: Denies: acute wheezing Meds/Allergies Home Medications and Allergies Home Medications Medication Instructions Recorded Confirmed Last Taken Type cholecalciferol (vitamin D3) 10 400 unit PO DAILY 09/22/19 01/23/21 01/12/21 History mcg (400 unit) capsule lycopene 10 mg capsule 10 mg PO DAILY 09/22/19 01/23/21 01/12/21 History nitroglycerin 0.4 mg sublingual 0.4 mg SUBLINGUAL Q5M PRN 09/22/19 01/23/21 Unknown History tablet levothyroxine 137 mcg capsule 150 mcg PO DAILY cap 12/24/19 01/23/21 01/12/21 History carvedilol 3.125 mg PO BID #60 tab 04/20/20 01/23/21 01/12/21 Rx lutein 40 mg capsule 40 mg PO DAILY 05/10/20 01/23/21 01/11/21 History omega-3 fatty acids 1,000 mg 1,000 mg PO DAILY cap 06/22/20 01/23/21 01/12/21 History capsule famotidine 20 mg tablet 20 mg PO BID 09/12/20 01/23/21 01/12/21 History loratadine 10 mg tablet 10 mg PO BEDTIME tab 09/12/20 01/23/21 01/11/21 History potassium chloride 20 mEq 20 meq PO BID #60 tab 09/22/20 01/23/21 01/12/21 Rx tablet,extended release(part/cryst) furosemide 40 mg PO BID 10/24/20 01/23/21 01/12/21 History tamsulosin 0.4 mg PO BEDTIME #30 cap 10/26/20 01/23/21 01/11/21 Rx spironolactone 25 mg PO DAILY 11/29/20 01/23/21 01/12/21 History Pradaxa 75 mg PO BID 01/12/21 01/23/21 01/12/21 History atorvastatin 40 mg PO DAILY 01/12/21 01/23/21 01/11/21 History clopidogrel 75 mg PO BID 01/12/21 01/23/21 01/12/21 History methenamine hippurate 1 g PO BID 01/12/21 01/23/21 01/12/21 History ascorbic acid (vitamin C) 1,000 mg 1 g PO BID tab 01/17/21 01/23/21 Unknown History tablet Allergies Allergy/AdvReac Type Severity Reaction Status Date / Time fenofibrate Allergy Unknown Unknown Verified 01/23/21 19:11 levofloxacin Allergy Unknown Unknown Verified 01/23/21 19:11 niacin Allergy Unknown Unknown Verified 01/23/21 19:11 Current Medications Current Medications Generic Name Dose Route Start Last Admin Trade Name Terryq PRN Reason Stop Dose Admin Heparin Sodium/Sodium Chloride 25,000 unit in 500 mls @ 0 mls/hr 01/24/21 00:15 01/24/21 00:55 Heparin Drip IV 14.47 unit/kg/hr .Q0M DEONNA 21 mls/hr Administration Protocol Per Protocol PFSH Acute PFSH: Medical History (Updated 01/24/21 @ 20:29 by Bo Forman MD) Acute retention of urine Anemia Anemia Anticoagulation adequate with anticoagulant therapy Direct thrombin inhibitor Pradaxa Aortic stenosis ASHD (arteriosclerotic heart disease) Atrial fibrillation Controlled Atrial fibrillation BPH (benign prostatic hyperplasia) Carotid stenosis, bilateral CHF (congestive heart failure) Chronic anticoagulation CKD (chronic kidney disease) Clot retention of urine Dyslipidemia History of myelodysplastic syndrome HTN (hypertension) Hypothyroidism Ischemic cardiomyopathy Mitral regurgitation Phimosis Pulmonary HTN SSS (sick sinus syndrome) Urinary retention Surgical History (Updated 01/24/21 @ 20:26 by Bo Forman MD) H/O esophagogastroduodenoscopy (10/20/20) History of coronary artery stent placement S/P cataract extraction S/P hernia repair S/P ICD (internal cardiac defibrillator) procedure S/P TAVR (transcatheter aortic valve replacement) Status post colonoscopy (10/20/20) diverticulosis, polyps Family History Mother , at age 82 CAD (coronary artery disease) Father , at age 69 Stroke Social History Alcohol intake: never Adopted: No Caregiver/support person: No Lives independently: No Household members: spouse Marital status: Current occupational status: retired History of recent travel: No Dietary Habits: Current diet type/program: regular Caffeine: Yes Vitals/I&O/Wt Last Vital Signs Temp 98.3 F 01/24/21 04:00 Pulse 62 01/24/21 06:55 Resp 14 01/24/21 04:00 BP 126/73 01/24/21 04:00 Pulse Ox 98 01/24/21 04:00 01/23/21 01/24/21 01/24/21 22:59 06:59 14:59 Intake Total 550 / 550 Output Total 750 / 750 Balance 550 / 550 -750 / -200 Weight last 48 hrs Weight 160 lb Physical Exam Narrative: EXAM NARRATIVE: Not performed due to Covid infection, please see medicine note Urinary Catheter Management^: Wang: Cath Placed During This Visit: yes Reason for Continuing Indwelling Catheter: Chronic Indwelling Urinary Catheter on Admission Urinary Catheter Date of Insertion: 01/23/21 Urinary Catheter Time of Insertion: 20:37 Data Micro: Micro: Microbiology 01/23/21 20:36 Blood Culture - Pr eliminary Blood SPECIMEN [facility] 01/23/21 20:34 Blood Culture - Pr eliminary Blood SPECIMEN [facility] A&P Assessment and plan (1) Acute alteration in mental status: Most likely due to metabolic, sepsis UTI pneumonia. Patient rest per medicine note is better continue as per medicine no cardiac cause or etiology for the altered mental status is evident Status: Acute (2) S/P TAVR (transcatheter aortic valve replacement): Bioprosthetic aortic valve not well visualized on echo most probably stable Status: Acute (3) High level of cardiac marker: Could be multifactorial however most likely or possible cause is type II non-ST elevation VT due to sepsis pneumonia, myocarditis could be another explanation. Continue current regimen. Anticoagulation in the form heparin or Lovenox as recommended. Aspirin and statin can be added Status: Acute (4) Arrhythmia: Episodes of atrial tachycardia most likely due to pulmonary etiology. Possible underlying rhythm is atrial fibrillation, continue to monitor if requires beta-jacqueline or calcium channel jacqueline can be used. Status: Acute Qualifiers: Arrhythmia type: supraventricular tachycardia Qualified Code(s): I47.1 - Supraventricular tachycardia (5) CHF (congestive heart failure): Systolic type mildly decompensated, due to renal dysfunction diuretics on hold. Since oxygen requirement has reduced continue holding diuretics as per clinical impression Status: Acute Consult Attestations Medical Necessity Statement: Patient require continuation hospitalization for above defined care. Coding Level of Care Code New Pt Acute Electrical Instrument Technician for [facility]ett Patient Type New Medical Decision Making Moderate Complexity Diagnoses Acute alteration in mental status R41.82 S/P TAVR (transcatheter aortic valve replacement) Z95.2 High level of cardiac marker R74.8 Arrhythmia I47.1 Arrhythmia type: supraventricular tachycardia CHF (congestive heart failure) I50.9
[2021-01-24 09:28] LABS: Basophils % 0.2 %; Eosinophils % 0.1 %; Hematocrit 33.4 % (42.0-52.0); Hemoglobin 9.7 g/dL (11.7-16.6); Lymphocytes # 0.9 10^3/uL (0.8-4.8); Lymphocytes % 6.4 %; Mean Corpuscular Hemoglobin 23.8 pg (28.0-34.0); Mean Corpuscular Volume 82.1 fL (80-94); Mean Platelet Volume 11.6 fL (7.4-10.4); Monocytes # 0.5 10^3/uL (0.2-0.9); Neutrophils # 11.92 10^3/uL (1.8-7.7); Neutrophils % 88.3 %; Nucleated Red Blood Cells % 0 %; Platelet Count 324 10^3/cmm (130-400); Red Blood Count 4.07 10^6/uL (4.1-5.3); Red Cell Distribution Width 17.4 % (12.1-15.1); White Blood Count 13.5 10^3/uL (4.0-10.0)
[2021-01-24] MEDS: dexamethasone 4 mg Tablet 6 MG PO (09:32)
[2021-01-24] MEDS: atorvastatin 40 mg Tablet PO (09:32)
[2021-01-24] MEDS: levothyroxine 150 mcg Tablet PO (09:33)
[2021-01-24] MEDS: carvedilol 3.125 mg Tablet PO ×2 (09:33→17:24)
[2021-01-24] MEDS: aspirin 81 mg EC Tablet PO (09:33)
[2021-01-24] MEDS: azithromycin 250 mg Tablet 500 MG PO (09:33)
[2021-01-24] MEDS: clopidogrel 75 mg Tablet PO (09:33)
[2021-01-24] MEDS: famotidine 20 mg Tablet PO ×2 (09:43→17:26)
[2021-01-24 09:49] LABS: Anion Gap 17.9 (5-19); Blood Urea Nitrogen 37 mg/dL (8-23); C Reactive Protein 58.5 mg/L (0.0-4.9); Calcium 8.4 mg/dL (8.5-10.5); Carbon Dioxide 17 mmol/L (22-29); Chloride 102 mmol/L (98-107); Glucose 116 mg/dL (65-115); Osmolality Calculated 284 mOsm/kg (285-295); Potassium 4.9 mmol/L (3.5-5.1); Sodium 132 mmol/L (136-145)
--- NOTE | 2021-01-24 09:55 | PC.CHAP ---
Pastoral Care Encounter/Spiritual Assessment Type of Contact [] Declined supervisor waterproofing visit [] Patient/Family/Request visit [] Outpatient visit [] Follow-up visit [] Physician referral [] Code/Alert [x] Routine visit [] Staff referral [] Actively dying [] Patient sleeping [] Family support [] [] Out of room [] Palliative care [] [] Receiving care in room [] Pre-surgical visit [] Trauma [] Long length of stay [] ICU visit [x] Other: covid Relational/Emotional Strength [] Patient feels connected with others/family/visitors/staff [] Distress [] Loneliness/isolation [] Abandonment Spirituality of Patient [] Person of [place] [] Attends Yarsani of their [place] [] Believes in Prayer [] Reads Bible or Jehovah'S Witness materials [] There are Spiritual issues to be addressed Bank Courier Interventions [x] Prayer [] Active listening [] Non-anxious presence [] Spiritual/emotional support [] Crisis/trauma care [] Spiritual counseling [] Bereavement support [] Provided bereavement packet [] Provided Bible/devotional materials [] Provided toy/stuffed animal, coloring book to patient or family member [] Provided Communion [] Anointing/[place] [] Salvation [x] Completed spiritual assessment [] Other: Impact on Illness or Injury [] Angry [] Fearful [] Anxious [] Often cries [] Exhaustion [] Unable to work [] Unable to attend scientologist [] Unable to walk/stand [] Unable to read [] Unable to drive [] Unable to eat/drink [] Unable to sleep [] Unable to be with family [] Patient intubated [] Other: Summary Time spent with patient
--- NOTE | 2021-01-24 12:44 | PM.PN ---
Subjective Subjective: Interval history: Tank reports he is doing okay. Feels weak. Denies any chest discomfort. Does not feel short of breath currently. Medications: Reviewed: Yes Vitals/I&O/Wt Last Vital Signs Temp 98.3 F 01/24/21 04:00 Pulse 60 01/24/21 09:05 Resp 16 01/24/21 09:05 BP 132/77 01/24/21 09:05 Pulse Ox 99 01/24/21 09:05 01/23/21 01/24/21 01/24/21 22:59 06:59 14:59 Intake Total 550 / 550 240 / 240 Output Total 750 / 750 Balance 550 / 550 -750 / -200 240 / 240 Weight last 48 hrs Weight 72.575 kg Physical Exam Narrative: EXAM NARRATIVE: General exam is no apparent distress Neck is supple no lymphadenopathy or thyromegaly Cardiovascular regular rate and rhythm without murmur Lungs clear no wheezing or crackles Abdomen is soft, positive bowel sounds. Extremities no cyanosis clubbing or edema Urinary Catheter Management^: Wang: Cath Placed During This Visit: yes Reason for Continuing Indwelling Catheter: Chronic Indwelling Urinary Catheter on Admission Urinary Catheter Date of Insertion: 01/23/21 Urinary Catheter Time of Insertion: 20:37 Data : 01/24/21 09:20 01/24/21 09:20 Micro: Microbiology 01/23/21 20:36 Blood Culture - Preliminary Blood SPECIMEN COLLECTED 01/23/21 20:34 Blood Culture - Preliminary Blood SPECIMEN COLLECTED A&P Assessment and plan (1) Acute alteration in mental status: Appears he is back to baseline currently. With acute encephalopathy, metabolic Status: Acute (2) Urinary tract infection: Continue Rocephin Status: Acute (3) COVID-19: Placed on dexamethasone on admission. However he is not requiring oxygen. Will discontinue as steroids may worsen his mental status causing delirium. Status: Acute (4) Fall: Status: Acute (5) Non-ST elevated myocardial infarction (non-STEMI): Concern of non-ST elevation myocardial infarction. Cardiology consulted Change heparin drip to Lovenox Continue statin, aspirin, beta-jacqueline Multiple arrhythmias noted on interrogation of pacemaker. Cardiology will address. Limited echocardiogram ordered and pending. Previous demonstrated a bioprosthetic aortic valve, and an EF of 45% with global hypokinesis. Status: Acute (6) Hyponatremia: Status: Acute (7) Pneumonia: Status: Acute Additional A&P Information Possible community-acquired pneumonia. Currently on Rocephin and azithromycin SIRS criteria but no evidence of severe sepsis or septic shock Acute kidney injury. Diuretics held. Improving. Hyponatremia, improved History of dementia Full code Lovenox will suffice for DVT prophylaxis Attestations Medical Necessity Statement*: Needs continued hospitalization for treatment of UTI and acute kidney injury with IV antibiotics, close monitoring as well as investigation of elevated troponin. Coding Level of Care Code Acute Ships Equipment Engineer for [facility] Fwd Diagnoses Acute alteration in mental status R41.82 Urinary tract infection N39.0 COVID-19 U07.1 Fall W19.XXXA Non-ST elevated myocardial infarction (non-STEMI) I21.4 Hyponatremia E87.1 Pneumonia J18.9
[2021-01-24] MEDS: enoxaparin 80 mg/0.8 mL Syringe 70 MG SUBCUT (17:25)
[2021-01-24] MEDS: tamsulosin 0.4 mg Capsule PO (21:41)
[2021-01-24] MEDS: cefTRIAXone 1,000 MG in sodium chloride 0.9% (plus) 50 ML 100 MG IV (21:41)
[2021-01-25] VITALS (15 sets, daily range): BP systolic 96–133; BP diastolic 53–79; PULSE 60–69; RESP 18–27; TEMP 36.4–38.5; O2SAT 8–99
[2021-01-25] MEDS: enoxaparin 80 mg/0.8 mL Syringe 70 MG SUBCUT ×2 (05:17→17:52)
--- NOTE | 2021-01-25 06:31 | PC.NURSE ---
Patient rested well through the night on RA with oxygen saturations 100%. Patient has some confusion through the night with the year and where he is at. He was able to tell me his name and that he is in the hospital, but not the town.
[2021-01-25 08:18] LABS: Basophils # 0.1 10^3/uL (0.0-0.1); Basophils % 0.3 %; Hematocrit 31.2 % (42.0-52.0); Hemoglobin 9.4 g/dL (11.7-16.6); Lymphocytes # 0.5 10^3/uL (0.8-4.8); Mean Corpuscular HGB Conc 30.1 g/dL (30.0-36.0); Mean Corpuscular Volume 79.6 fL (80-94); Mean Platelet Volume 11.3 fL (7.4-10.4); Monocytes # 1.7 10^3/uL (0.2-0.9); Monocytes % 6.9 %; Neutrophils % 88.9 %; Nucleated Red Blood Cells % 0 %; Platelet Count 357 10^3/cmm (130-400); Red Blood Count 3.92 10^6/uL (4.1-5.3); Red Cell Distribution Width 17.6 % (12.1-15.1)
[2021-01-25 08:46] LABS: Alanine Aminotransferase 10 U/L (0-41); Albumin Level 3.6 g/dL (3.5-5.2); Alkaline Phosphatase 158 IU/L (40-130); Anion Gap 17.2 (5-19); Aspartate Amino Transferase 20 U/L (0-40); Blood Urea Nitrogen 40 mg/dL (8-23); Calcium 8.6 mg/dL (8.5-10.5); Carbon Dioxide 18 mmol/L (22-29); Chloride 100 mmol/L (98-107); Globulin 2.4 g/dL (1.3-4.6); Glucose 121 mg/dL (65-115); Osmolality Calculated 281 mOsm/kg (285-295); Potassium 5.2 mmol/L (3.5-5.1); Sodium 130 mmol/L (136-145); Total Bilirubin 0.5 mg/dL (0.15-1.2)
[2021-01-25] MEDS: aspirin 81 mg EC Tablet PO (09:08)
[2021-01-25] MEDS: azithromycin 250 mg Tablet 500 MG PO (09:08)
[2021-01-25] MEDS: famotidine 20 mg Tablet PO ×2 (09:08→17:51)
[2021-01-25] MEDS: clopidogrel 75 mg Tablet PO (09:08)
[2021-01-25] MEDS: levothyroxine 150 mcg Tablet PO (09:08)
[2021-01-25] MEDS: carvedilol 3.125 mg Tablet PO ×2 (09:08→17:51)
--- NOTE | 2021-01-25 10:05 | PC.CHAP ---
Pastoral Care Encounter/Spiritual Assessment Type of Contact [] Declined surgeon partner visit [] Patient/Family/Request visit [] Outpatient visit [] Follow-up visit [] Physician referral [] Code/Alert [x] Routine visit [] Staff referral [] Actively dying [] Patient sleeping [] Family support [] [] Out of room [] Palliative care [] [] Receiving care in room [] Pre-surgical visit [] Trauma [] Long length of stay [] ICU visit [x] Other: covid Relational/Emotional Strength [] Patient feels connected with others/family/visitors/staff [] Distress [] Loneliness/isolation [] Abandonment Spirituality of Patient [] Person of Carrol [] Attends Oriental Orthodox of their [place] [] Believes in Prayer [] Reads Bible or Yarsanism materials [] There are Spiritual issues to be addressed Logging Operations Inspector Interventions [x] Prayer [] Active listening [] Non-anxious presence [] Spiritual/emotional support [] Crisis/trauma care [] Spiritual counseling [] Bereavement support [] Provided bereavement packet [] Provided Bible/devotional materials [] Provided toy/stuffed animal, coloring book to patient or family member [] Provided Communion [] Anointing/[place] [] Salvation [x] Completed spiritual assessment [] Other: Impact on Illness or Injury [] Angry [] Fearful [] Anxious [] Often cries [] Exhaustion [] Unable to work [] Unable to attend restorationism [] Unable to walk/stand [] Unable to read [] Unable to drive [] Unable to eat/drink [] Unable to sleep [] Unable to be with family [] Patient intubated [] Other: Summary Time spent with patient
[2021-01-25] MEDS: vancomycin 1,000 MG in sodium chloride 0.9% 250 ML 250 MG IV (13:04)
--- NOTE | 2021-01-25 14:30 | PM.PN ---
Subjective Subjective: Interval history: Tank was coughing quite a bit when I entered the room. He seems a little sleepier than the day previously. Medications: Reviewed: Yes Vitals/I&O/Wt Last Vital Signs Temp 101.3 F H 01/25/21 12:43 Pulse 60 01/25/21 13:53 Resp 22 H 01/25/21 13:53 BP 131/68 01/25/21 13:53 Pulse Ox 98 01/25/21 13:53 01/24/21 01/25/21 01/25/21 22:59 06:59 14:59 Intake Total 360 / 1766 50 / 1816 250 / 250 Output Total 800 / 800 275 / 1075 350 / 350 Balance -440 / 966 -225 / 741 -100 / -100 Weight last 48 hrs Weight 72.575 kg Physical Exam Narrative: EXAM NARRATIVE: General exam is no apparent distress Neck is supple no lymphadenopathy or thyromegaly Cardiovascular regular rate and rhythm without murmur Lungs bilateral expiratory wheezes were noted. Abdomen is soft, positive bowel sounds. Extremities no cyanosis clubbing or edema Urinary Catheter Management^: Wang: Cath Placed During This Visit: yes Reason for Continuing Indwelling Catheter: Accurate Measurement of Urinary Output in Critically Ill Patients Urinary Catheter Date of Insertion: 01/23/21 Urinary Catheter Time of Insertion: 20:37 Data : 01/25/21 07:40 01/25/21 07:40 Micro: Microbiology 01/23/21 20:33 Urine Culture - Final Urine,Clean Catch 01/23/21 20:36 Blood Culture - Preliminary Blood NEGATIVE TO DATE 01/23/21 20:34 Blood Culture - Preliminary Blood NEGATIVE TO DATE A&P Assessment and plan (1) Acute alteration in mental status: Mental status may be a little worse today. However, I talked with his and she reports this morning he was acting fairly normal on the phone.. With acute encephalopathy, metabolic CT head concern of sinusitis but no acute changes. Status: Acute (2) Urinary tract infection: Has chronic indwelling catheter. Urine culture negative but may have received IV antibiotics prior to then's being obtained. Concerned this may be a complicated UTI with white blood cell count increasing, encephalopathy. Will expand coverage to vancomycin and Primaxin while awaiting cultures. Note that he has previously had bacteremia with strep viridans. Repeat procalcitonin level tomorrow. Repeat blood cultures Status: Acute (3) COVID-19: Placed on dexamethasone on admission. This was discontinued as he was not requiring any oxygen. As he is not requiring oxygen, was not hospitalized for Covid, is high risk, and symptom onset 7 to 8 days ago will give monoclonal antibody infusion. Note that he was vaccinated. Status: Acute (4) Fall: Status: Acute (5) Non-ST elevated myocardial infarction (non-STEMI): Concern of non-ST elevation myocardial infarction. Cardiology consulted Continue Lovenox Continue statin, aspirin, beta-jacqueline Multiple arrhythmias noted on interrogation of pacemaker. Cardiology will address. Limited echocardiogram ordered and pending. Previous demonstrated a bioprosthetic aortic valve, and an EF of 45% with global hypokinesis. Status: Acute (6) Hyponatremia: Status: Acute (7) Pneumonia: IV antibiotic coverage expanded Check MRSA PCR Bacterial antigen panel Sputum culture Status: Acute Additional A&P Information Possible community-acquired pneumonia. Currently on Rocephin and azithromycin SIRS criteria but no evidence of severe sepsis or septic shock Acute kidney injury. Diuretics held. Improving. Hyponatremia, improved History of dementia Full code Lovenox will suffice for DVT prophylaxis Attestations Medical Necessity Statement*: Needs continued hospital stay for IV antibiotics secondary to UTI and pneumonia. Coding Level of Care Code Acute Operator And Truck Driver for Rod Burnett Diagnoses Acute alteration in mental status R41.82 Urinary tract infection N39.0 COVID-19 U07.1 Fall W19.XXXA Non-ST elevated myocardial infarction (non-STEMI) I21.4 Hyponatremia E87.1 Pneumonia J18.9
[2021-01-25] MEDS: acetaminophen 325 mg Tablet 650 MG PO (14:47)
[2021-01-25 15:53] LABS: Blood Urea Nitrogen 44 mg/dL (8-23); Calcium 8.5 mg/dL (8.5-10.5); Carbon Dioxide 19 mmol/L (22-29); Chloride 102 mmol/L (98-107); Creatinine Clr Calc Pharmacy 36.3866; Glucose 101 mg/dL (65-115); Osmolality Calculated 285 mOsm/kg (285-295); Sodium 132 mmol/L (136-145)
--- NOTE | 2021-01-25 19:04 | PM.PN ---
Subjective Subjective: Interval history: Stable vital ray Medications: Reviewed: Yes Vitals/I&O/Wt Last Vital Signs Temp 99.0 F 01/25/21 16:38 Pulse 62 01/25/21 16:18 Resp 25 H 01/25/21 16:18 BP 128/69 01/25/21 16:18 Pulse Ox 97 01/25/21 16:18 01/25/21 01/25/21 01/25/21 06:59 14:59 22:59 Intake Total 50 / 1816 250 / 250 210 / 460 Output Total 275 / 1075 350 / 350 150 / 500 Balance -225 / 741 -100 / -100 60 / -40 Weight last 48 hrs Weight 160 lb Physical Exam Narrative: EXAM NARRATIVE: Not performed due to Covid infection, please see medicine note Urinary Catheter Management^: Wang: Cath Placed During This Visit: yes Reason for Continuing Indwelling Catheter: Accurate Measurement of Urinary Output in Critically Ill Patients Urinary Catheter Date of Insertion: 01/23/21 Urinary Catheter Time of Insertion: 20:37 Data : 01/25/21 07:40 01/25/21 15:04 Micro: Microbiology 01/23/21 20:36 Blood Culture - Preliminary Blood 01/25/21 14:59 Blood Culture - Preliminary Blood SPECIMEN COLLECTED 01/25/21 15:04 Blood Culture - Preliminary Blood SPECIMEN COLLECTED 01/23/21 20:33 Urine Culture - Final Urine,Clean Catch 01/23/21 20:34 Blood Culture - Preliminary Blood NEGATIVE TO DATE A&P Assessment and plan (1) Acute alteration in mental status: Improved as per medicine Status: Acute (2) S/P TAVR (transcatheter aortic valve replacement): Stable. Status: Acute (3) High level of cardiac marker: Could be multifactorial however most likely or possible cause is type II non-ST elevation RI due to sepsis pneumonia, myocarditis could be another explanation. Continue current regimen. Anticoagulation in the form heparin or Lovenox as recommended. Aspirin and statin can be added Continue current management Status: Acute (4) Arrhythmia: Episodes of atrial tachycardia most likely due to pulmonary etiology. Possible underlying rhythm is atrial fibrillation, continue to monitor if requires beta-jacqueline or calcium channel jacqueline can be used. Continue as per management discussed above Status: Acute Qualifiers: Arrhythmia type: supraventricular tachycardia Qualified Code(s): I47.1 - Supraventricular tachycardia (5) CHF (congestive heart failure): Systolic type mildly decompensated, due to renal dysfunction diuretics on hold. Since oxygen requirement has reduced continue holding diuretics as per clinical impression Continue management Status: Acute Attestations Medical Necessity Statement*: As per medicine Coding Level of Care Code Established Pt Acute Commercial Real Estate Lender for Chg Fwd Patient Type Established History Detailed Exam Detailed Medical Decision Making Moderate Complexity Diagnoses Acute alteration in mental status R41.82 S/P TAVR (transcatheter aortic valve replacement) Z95.2 High level of cardiac marker R74.8 Arrhythmia I47.1 Arrhythmia type: supraventricular tachycardia CHF (congestive heart failure) I50.9
[2021-01-25] MEDS: tamsulosin 0.4 mg Capsule PO (20:40)
[2021-01-26] VITALS (13 sets, daily range): BP systolic 88–165; BP diastolic 45–83; PULSE 60–61; RESP 13–27; TEMP 36.7–36.8; O2SAT 96–100
[2021-01-26] MEDS: guaiFENesin-dextromethorphan UDC 10 mL PO (03:30)
[2021-01-26] MEDS: enoxaparin 80 mg/0.8 mL Syringe 70 MG SUBCUT (05:02)
--- NOTE | 2021-01-26 06:12 | PC.NURSE ---
Shift Summary Patient has been confused all night. Only able to tell me his name and that he is in a hospital. Patient has been restless with several attempts to climb out of bed and pulled on lines. Patient has been coughing all night. Night hospitalist ordered Robitussin and Tessalon pearls. Patient remains on RA with oxygen saturation 100%.
[2021-01-26 07:29] LABS: Basophils % 0.2 %; Eosinophils # 0.3 10^3/uL (0.0-0.8); Eosinophils % 1.6 %; Hematocrit 29.7 % (42.0-52.0); Hemoglobin 8.6 g/dL (11.7-16.6); Lymphocytes # 0.7 10^3/uL (0.8-4.8); Lymphocytes % 3.9 %; Mean Corpuscular Hemoglobin 23.4 pg (28.0-34.0); Mean Corpuscular Volume 80.9 fL (80-94); Mean Platelet Volume 11.1 fL (7.4-10.4); Monocytes # 1.5 10^3/uL (0.2-0.9); Monocytes % 8.7 %; Neutrophils % 83.1 %; Nucleated Red Blood Cells # 0.1 /100WBC; Nucleated Red Blood Cells % 0.3 %; Platelet Count 343 10^3/cmm (130-400); Red Blood Count 3.67 10^6/uL (4.1-5.3); Red Cell Distribution Width 17.5 % (12.1-15.1); White Blood Count 17.2 10^3/uL (4.0-10.0)
[2021-01-26 08:01] LABS: Alanine Aminotransferase 12 U/L (0-41); Albumin Level 3.4 g/dL (3.5-5.2); Alkaline Phosphatase 130 IU/L (40-130); Aspartate Amino Transferase 22 U/L (0-40); Blood Urea Nitrogen 39 mg/dL (8-23); Calcium 8.2 mg/dL (8.5-10.5); Carbon Dioxide 16 mmol/L (22-29); Chloride 100 mmol/L (98-107); Globulin 2.4 g/dL (1.3-4.6); Glucose 89 mg/dL (65-115); Osmolality Calculated 281 mOsm/kg (285-295); Sodium 131 mmol/L (136-145); Total Bilirubin 0.8 mg/dL (0.15-1.2); Total Protein 5.8 g/dL (6.6-8.7)
[2021-01-26 08:02] LABS: Creatinine Clr Calc Pharmacy 41.9845
[2021-01-26 08:06] LABS: Procalcitonin 0.18 ng/mL (0-0.5)
--- NOTE | 2021-01-26 09:14 | PC.SOCIAL ---
Pg 2 IMM Explained to pt's , Pg 2 IMM. No questions voiced. Provided pt care nurse a copy to give to pt since pt is on isolation. Initialed, dated, & timed a copy & placed in chart.
[2021-01-26] MEDS: aspirin 81 mg EC Tablet PO (09:22)
[2021-01-26] MEDS: carvedilol 3.125 mg Tablet PO ×2 (09:22→17:29)
[2021-01-26] MEDS: levothyroxine 150 mcg Tablet PO (09:22)
[2021-01-26] MEDS: clopidogrel 75 mg Tablet PO (09:22)
[2021-01-26] MEDS: famotidine 20 mg Tablet PO ×2 (09:22→17:29)
[2021-01-26] MEDS: atorvastatin 40 mg Tablet PO (09:22)
--- NOTE | 2021-01-26 09:59 | PC.CHAP ---
Pastoral Care Encounter/Spiritual Assessment Type of Contact [] Declined special warfare operator visit [] Patient/Family/Request visit [] Outpatient visit [] Follow-up visit [] Physician referral [] Code/Alert [x] Routine visit [] Staff referral [] Actively dying [] Patient sleeping [] Family support [] [] Out of room [] Palliative care [] [] Receiving care in room [] Pre-surgical visit [] Trauma [] Long length of stay [] ICU visit [x] Other: covid Relational/Emotional Strength [] Patient feels connected with others/family/visitors/staff [] Distress [] Loneliness/isolation [] Abandonment Spirituality of Patient [] Person of [place] [] Attends Gnosticism of their [place] [] Believes in Prayer [] Reads Bible or Presybeterian materials [] There are Spiritual issues to be addressed Medicare Biller Interventions [x] Prayer [] Active listening [] Non-anxious presence [] Spiritual/emotional support [] Crisis/trauma care [] Spiritual counseling [] Bereavement support [] Provided bereavement packet [] Provided Bible/devotional materials [] Provided toy/stuffed animal, coloring book to patient or family member [] Provided Communion [] Anointing/[place] [] Salvation [x] Completed spiritual assessment [] Other: Impact on Illness or Injury [] Angry [] Fearful [] Anxious [] Often cries [] Exhaustion [] Unable to work [] Unable to attend yarsani [] Unable to walk/stand [] Unable to read [] Unable to drive [] Unable to eat/drink [] Unable to sleep [] Unable to be with family [] Patient intubated [] Other: Summary Time spent with patient
[2021-01-26] MEDS: vancomycin 1,000 MG in sodium chloride 0.9% 250 ML 250 MG IV (12:05)
--- NOTE | 2021-01-26 12:29 | PM.PN ---
Subjective Subjective: Interval history: Tank reports he is doing okay this morning. Nursing reports he has had some confusion. Medications: Reviewed: Yes Vitals/I&O/Wt Last Vital Signs Temp 98.1 F 01/26/21 12:00 Pulse 60 01/26/21 12:00 Resp 17 01/26/21 12:00 BP 126/66 01/26/21 12:00 Pulse Ox 96 01/26/21 12:00 01/25/21 01/26/21 01/26/21 22:59 06:59 14:59 Intake Total 310 / 560 340 / 900 Output Total 150 / 500 300 / 800 Balance 160 / 60 40 / 100 Physical Exam Narrative: EXAM NARRATIVE: General exam is no apparent distress Neck is supple no lymphadenopathy or thyromegaly Cardiovascular regular rate and rhythm without murmur Lungs bilateral expiratory wheezes were noted. Abdomen is soft, positive bowel sounds. No apparent pain with palpation I inspected his back and buttocks and no evidence of abscess Extremities no cyanosis clubbing or edema Urinary Catheter Management^: Wang: Cath Placed During This Visit: yes Reason for Continuing Indwelling Catheter: Accurate Measurement of Urinary Output in Critically Ill Patients Urinary Catheter Date of Insertion: 01/23/21 Urinary Catheter Time of Insertion: 20:37 Data : 01/26/21 06:45 01/26/21 06:45 Micro: Microbiology 01/23/21 20:36 Blood Culture - Preliminary Blood 01/25/21 14:59 Blood Culture - Preliminary Blood SPECIMEN COLLECTED 01/25/21 15:04 Blood Culture - Preliminary Blood SPECIMEN COLLECTED 01/23/21 20:33 Urine Culture - Final Urine,Clean Catch A&P Assessment and plan (1) Acute alteration in mental status: Mental status demonstrates some confusion, but he is able to converse. I do not think he is quite back to baseline. With acute encephalopathy, metabolic CT head concern of sinusitis but no acute changes. Status: Acute (2) Urinary tract infection: Has chronic indwelling catheter. Urine culture negative but may have received IV antibiotics prior to then's being obtained. Concerned this may be a complicated UTI with white blood cell count increasing, encephalopathy. Will expand coverage to vancomycin and Primaxin while awaiting cultures. Note that he has previously had bacteremia with strep viridans. White blood cell count has decreased Procalcitonin level not elevated Blood culture, 1 out of 3 bottles growing large gram-positive rods. Repeat cultures were drawn. Renal ultrasound demonstrated no hydronephrosis Secondary to fever yesterday, concern of blood culture with a gram-positive gunjan we will go ahead and CT scan abdomen and pelvis. Secondary to some renal insufficiency this will be done without contrast. Status: Acute (3) COVID-19: Placed on dexamethasone on admission. This was discontinued as he was not requiring any oxygen. As he is not requiring oxygen, was not hospitalized for Covid, is high risk, and symptom onset 7 to 8 days ago will give monoclonal antibody infusion. This was given January 25 Note that he was vaccinated. Status: Acute (4) Fall: Status: Acute (5) Non-ST elevated myocardial infarction (non-STEMI): Concern of non-ST elevation myocardial infarction. Cardiology consulted Continue Lovenox Continue statin, aspirin, beta-jacqueline Multiple arrhythmias noted on interrogation of pacemaker. Cardiology will address. Limited echocardiogram ordered and pending. Previous demonstrated a bioprosthetic aortic valve, and an EF of 45% with global hypokinesis. 40 mg Lasix IV x1 today. Sodium slightly low. Note that he is on diuretic twice daily at home. Status: Acute (6) Hyponatremia: Status: Acute (7) Pneumonia: IV antibiotic coverage expanded to Primaxin and vancomycin Await MRSA PCR Await bacterial antigen panel Await sputum culture Status: Acute Additional A&P Information Possible community-acquired pneumonia. Currently on Rocephin and azithromycin SIRS criteria but no evidence of severe sepsis or septic shock Acute kidney injury. Diuretics held. Improving. Hyponatremia, improved History of dementia Full code Lovenox will suffice for DVT prophylaxis Attestations Medical Necessity Statement*: Needs continued hospitalization for IV antibiotics secondary to UTI, possible bacteremia. Coding Level of Care Code Acute Audiology Doctor for Rod Burnett Diagnoses Acute alteration in mental status R41.82 Urinary tract infection N39.0 COVID-19 U07.1 Fall W19.XXXA Non-ST elevated myocardial infarction (non-STEMI) I21.4 Hyponatremia E87.1 Pneumonia J18.9
--- NOTE | 2021-01-26 12:34 | CT_ITS ---
WS: [id number] CT ABDOMEN AND PELVIS NONCONTRAST HISTORY: fever, bacteremia TECHNIQUE: Imaging performed through the abdomen and pelvis. Coronal and sagittal reformats are submi tted. All CT scans at [facility] use at least one of these dose optimization techniques: automated exposure control; mA and/or kV adjustment per patient size (includes targeted exams where d ose is matched to clinical indication); or iterative reconstruction. DLP: 1384.6 mGy.cm COMPARISON: 10/24/2020 Lower thorax: Very small bilateral pleural effusions. Heart is enlarged. Pacer wires are noted. Liver: Negative. Gallbladder: Present with calcified wall with mild contraction. No adjacent inflammation. Pancreas: Normal size and attenuation. Normal pancreatic duct. No pancreatitis or mass. Spleen: Normal. Adrenal glands: Normal. No mass. Right kidney: Perinephric stranding with no obstruction. Exophytic cyst from the lower pole. There is an additional smaller cyst anteriorly. Left kidney: Perinephric stranding. Large cyst from the lower pole is unchanged. Aorta: Heavy calcification in aorta. No free fluid or free air. No adenopathy appreciated. GI tract: Normal appendix. No GI tract obstruction or diverticulosis. Abdominal wall: Diffuse soft tissue anasarca. There is a large variable density soft tissue mass cent ered in the oblique muscles over the RIGHT lateral abdominal wall. There is a fluid/fluid level withi n the mass. No air. This is consistent with a large RIGHT abdominal wall hematoma extending over roseanna th of 9.6 cm x 11.0 x 7.3 cm. There is a additional component of the hematoma extending along the RIG HT iliacus muscle into the pelvis. Pelvis: No free fluid. Wang catheter in a nondistended bladder. There is diffuse bladder wall thicke emerald. Osseous structures: L2 compression fracture by 20%. CT/CT abdomen pelvis wo con [id number] IMPRESSION: 1. Large RIGHT lateral abdominal wall hematoma centered between the oblique mu scles measures 9.6 x 11.0 x 7.3 cm. Hematoma extends into the RIGHT iliacus mu scle into the pelvis. 2. Small bilateral pleural effusions and soft tissue anasarca. 3. Mildly contracted gallbladder with calcified wall. 4. Bilateral renal cysts. Notified Juan Montoya MD at 01/26/2021 2:38 PM.
[2021-01-26] MEDS: FUROsemide 10 mg/mL SDV 4mL 40 MG IVP (13:04)
[2021-01-26 14:05] LABS: Oxygen Device RA
--- NOTE | 2021-01-26 15:01 | US_ITS ---
WS: [id number] RENAL ULTRASOUND HISTORY: febrile UTI, PV bladder not needed COMPARISON: 01/04/[address] 10/24/2020 TECHNIQUE: 2-D and color Doppler imaging of the kidney submitted. Right kidney: 11.0 cm x 4.3 cm x 5.3 cm. Normal echogenicity with no hydronephrosis or mass. Left kidney: 10.6 cm x 4.7 cm x 7.0 cm. Normal size kidney. No hydronephrosis. Large cyst exophytic from the lower pole measures 8.1 x 7.3 x 8.8 cm. Similar to prior studies. No solid mass. Aorta: Normal. Urinary Bladder: Wang catheter present in the urinary bladder. Prostate gland is enlarged. There is wall thickening of the visualized urinary bladder and complex material in the bladder which may be re lated to stasis or infection. US/US renal BI* [id number] IMPRESSION: 1. No hydronephrosis. 2. Large known LEFT renal cyst. 3. Wang catheter present in a thick walled urinary bladder with diffuse low l evel echoes which may be related to stasis or infection.
[2021-01-26 16:46] LABS: Hematocrit 23.1 % (42.0-52.0); Hemoglobin 6.8 g/dL (11.7-16.6)
--- NOTE | 2021-01-26 19:02 | P.PN_ITS ---
Subjective Subjective: Interval history: No reporting of chest pain. Rectus sheath hematoma with drop of hemoglobin Medications: Reviewed: Yes Vitals/I&O/Wt Last Vital Signs Temp 98.1 F 01/26/21 12:00 Pulse 60 01/26/21 17:31 Resp 17 01/26/21 12:00 BP 104/80 01/26/21 16:00 Pulse Ox 99 01/26/21 17:31 01/26/21 01/26/21 01/26/21 06:59 14:59 22:59 Intake Total 340 / 900 570 / 570 100 / 670 Output Total 300 / 800 Balance 40 / 100 570 / 570 100 / 670 Physical Exam Narrative: EXAM NARRATIVE: Not performed due to Covid infection, please see medicine note Urinary Catheter Management^: Wang: Cath Placed During This Visit: yes Reason for Continuing Indwelling Catheter: Accurate Measurement of Urinary Output in Critically Ill Patients Urinary Catheter Date of Insertion: 01/23/21 Urinary Catheter Time of Insertion: 20:37 Data : 01/26/21 16:17 01/26/21 06:45 Micro: Microbiology 01/25/21 14:59 Blood Culture - Preliminary Blood NEGATIVE TO DATE 01/25/21 15:04 Blood Culture - Preliminary Blood NEGATIVE TO DATE 01/25/21 16:40 MRSA Culture - Final Nose 01/23/21 20:36 Blood Culture - Preliminary Blood Bacillus sp not b. anthracis A&P Assessment and plan (1) Acute alteration in mental status: As per medicine appear to be stable but somewhat confused Status: Acute (2) S/P TAVR (transcatheter aortic valve replacement): Stable. Status: Acute (3) High level of cardiac marker: Type II non-ST elevation NC most likely due to demand ischemia. Due to hematoma anticoagulation and antiplatelet can be stopped Status: Acute (4) Arrhythmia: Stable. Continue to monitor Status: Acute Qualifiers: Arrhythmia type: supraventricular tachycardia Qualified Code(s): I47.1 - Supraventricular tachycardia (5) CHF (congestive heart failure): Appear to be compensated. Continue current management Status: Acute Attestations Medical Necessity Statement*: As per medicine Coding Level of Care Code Established Pt Acute Physical Therapist Clinic Director for Rod Fwd Patient Type Established History Expanded Problem Focused Exam Expanded Problem Focused Medical Decision Making Moderate Complexity Diagnoses Acute alteration in mental status R41.82 S/P TAVR (transcatheter aortic valve replacement) Z95.2 High level of cardiac marker R74.8 Arrhythmia I47.1 Arrhythmia type: supraventricular tachycardia CHF (congestive heart failure) I50.9
[2021-01-26] MEDS: benzonatate 100 mg Capsule PO (20:27)
[2021-01-26] MEDS: acetaminophen 325 mg Tablet 650 MG PO (20:27)
[2021-01-26] MEDS: tamsulosin 0.4 mg Capsule PO (20:28)
[2021-01-27] VITALS (15 sets, daily range): BP systolic 92–133; BP diastolic 58–78; PULSE 60–76; RESP 17–22; TEMP 35.7–36.9; O2SAT 97–100
--- NOTE | 2021-01-27 07:02 | PC.NURSE ---
Shift Summary Patient remains confused. Able to correctly answer name, , and that he is in the hospital. SCD's applied per order. Patient remains on RA with oxygen sats 100%
[2021-01-27 07:41] LABS: Alanine Aminotransferase 11 U/L (0-41); Albumin Level 2.8 g/dL (3.5-5.2); Alkaline Phosphatase 100 IU/L (40-130); Anion Gap 16.5 (5-19); Aspartate Amino Transferase 30 U/L (0-40); Blood Urea Nitrogen 46 mg/dL (8-23); Calcium 7.7 mg/dL (8.5-10.5); Carbon Dioxide 16 mmol/L (22-29); Chloride 105 mmol/L (98-107); Globulin 2.3 g/dL (1.3-4.6); Glucose 97 mg/dL (65-115); Osmolality Calculated 288 mOsm/kg (285-295); Potassium 4.5 mmol/L (3.5-5.1); Sodium 133 mmol/L (136-145); Total Bilirubin 0.8 mg/dL (0.15-1.2); Total Protein 5.1 g/dL (6.6-8.7)
[2021-01-27 07:59] LABS: Basophils % 0.1 %; Eosinophils # 0.3 10^3/uL (0.0-0.8); Eosinophils % 2.2 %; Lymphocytes # 1.4 10^3/uL (0.8-4.8); Lymphocytes % 9.8 %; Mean Corpuscular HGB Conc 29.7 g/dL (30.0-36.0); Mean Corpuscular Hemoglobin 24.1 pg (28.0-34.0); Mean Corpuscular Volume 80.9 fL (80-94); Mean Platelet Volume 12.1 fL (7.4-10.4); Monocytes # 1.5 10^3/uL (0.2-0.9); Monocytes % 10.2 %; Neutrophils # 10.76 10^3/uL (1.8-7.7); Nucleated Red Blood Cells # 0.1 /100WBC; Nucleated Red Blood Cells % 0.3 %; Platelet Count 305 10^3/cmm (130-400); Red Blood Count 2.41 10^6/uL (4.1-5.3); Red Cell Distribution Width 17.7 % (12.1-15.1); White Blood Count 14.4 10^3/uL (4.0-10.0)
[2021-01-27 08:06] LABS: Hematocrit 19.5 % (42.0-52.0); Hemoglobin 5.8 g/dL (11.7-16.6)
--- NOTE | 2021-01-27 08:14 | PC.NURSE ---
Dr. Montoya notified at this time via telephone. New orders received to transfuse 2 PRBC as well as giving Lasix 2 mg in between 1st and 2nd dose.
[2021-01-27] MEDS: famotidine 20 mg Tablet PO ×2 (09:57→17:10)
[2021-01-27] MEDS: atorvastatin 40 mg Tablet PO (09:57)
[2021-01-27] MEDS: carvedilol 3.125 mg Tablet PO ×2 (09:57→17:10)
[2021-01-27] MEDS: levothyroxine 150 mcg Tablet PO (09:57)
--- NOTE | 2021-01-27 12:25 | P.PN_ITS ---
Subjective Subjective: Interval history: Tank reports he is doing okay today. He seems less confused, more conversant. Medications: Reviewed: Yes Vitals/I&O/Wt Last Vital Signs Temp 96.4 F L 01/27/21 09:58 Pulse 60 01/27/21 10:43 Resp 20 H 01/27/21 10:43 BP 116/63 01/27/21 09:58 Pulse Ox 100 01/27/21 10:43 01/26/21 01/27/21 01/27/21 22:59 06:59 14:59 Intake Total 100 / 670 100 / 770 100 / 100 Output Total 1100 / 1100 400 / 1500 Balance -1000 / -430 -300 / -730 100 / 100 Physical Exam Narrative: EXAM NARRATIVE: General exam is no apparent distress Neck is supple no lymphadenopathy or thyromegaly Cardiovascular regular rate and rhythm without murmur Lungs bilateral expiratory wheezes were noted. Abdomen is positive bowel sounds. Right rectus sheath without discoloration but tight. Extremities no cyanosis clubbing or edema Urinary Catheter Management^: Wang: Cath Placed During This Visit: yes Reason for Continuing Indwelling Catheter: Accurate Measurement of Urinary Outp ut in Critically Ill Patients Urinary Catheter Date of Insertion: 01/23/21 Urinary Catheter Time of Insertion: 20:37 Data : 01/27/21 05:30 01/27/21 05:30 Micro: Microbiology 01/25/21 14:59 Blood Culture - Preliminary Blood NEGATIVE TO DATE 01/25/21 15:04 Blood Culture - Preliminary Blood NEGATIVE TO DATE 01/25/21 16:40 MRSA Culture - Final Nose 01/23/21 20:36 Blood Culture - Preliminary Blood Bacillus sp not b. anthracis A&P Assessment and plan (1) Acute alteration in mental status: Mental status improved With acute encephalopathy, metabolic CT head concern of sinusitis but no acute changes. Status: Acute (2) Urinary tract infection: Has chronic indwelling catheter. Urine culture negative but may have received IV antibiotics prior to then's being obtained. Concerned this may be a complicated UTI with white blood cell count increasing, encephalopathy. Will expand coverage to vancomycin and Primaxin while awaiting cultures. Note that he has previously had bacteremia with strep viridans. White blood cell count is decreasing Procalcitonin level not elevated Blood culture, 1 out of 3 bottles growing large gram-positive rods. Repeat cultures were drawn and negative to date. Likely a bacillus species. Probable contamination at Renal ultrasound demonstrated no hydronephrosis Secondary to fever yesterday, concern of blood culture with a gram-positive gunjan we will go ahead and CT scan abdomen and pelvis. This demonstrated an abdominal wall hematoma and anticoagulation, antiplatelet agents were discontinued. Status: Acute (3) COVID-19: Placed on dexamethasone on admission. This was discontinued as he was not requiring any oxygen. As he is not requiring oxygen, was not hospitalized for Covid, is high risk, and symptom onset 7 to 8 days ago will give monoclonal antibody infusion. This was given January 25 Note that he was vaccinated. Status: Acute (4) Fall: Status: Acute (5) Non-ST elevated myocardial infarction (non-STEMI): Concern of non-ST elevation myocardial infarction. Cardiology consulted Lovenox and aspirin discontinued secondary to bleed Continue statin, beta-jacqueline Multiple arrhythmias noted on interrogation of pacemaker. Cardiology will address. Limited echocardiogram ordered and pending. Previous demonstrated a biop rosthetic aortic valve, and an EF of 45% with global hypokinesis. Status: Acute (6) Hyponatremia: Status: Acute (7) Pneumonia: IV antibiotic coverage expanded to Primaxin and vancomycin Await MRSA PCR Await bacterial antigen panel Await sputum culture Status: Acute Additional A&P Information Possible community-acquired pneumonia. Currently on imipenem and vancomycin. Clinically improving and white blood cell count decreasing. MRSA PCR negative so we will discontinue vancomycin. SIRS criteria but no evidence of severe sepsis or septic shock Anemia. Acute blood loss associated with abdominal wall bleed. Lovenox, Plavix, aspirin all discontinued. Transfusing 2 units of packed red blood cells currently. Recheck hemoglobin and hematocrit following transfusion. Acute kidney injury. Diuretics held. Improved. Consider readding diuretics tomorrow Hyponatremia, improved History of dementia Full code Lovenox will suffice for DVT prophylaxis Attestations Medical Necessity Statement*: Needs continued hospitalization for close monitoring of abdominal wall bleed. Coding Level of Care Code Acute Commercial Service Technician for Rod Burnett Diagnoses Acute alteration in mental status R41.82 Urinary tract infection N39.0 COVID-19 U07.1 Fall W19.XXXA Non-ST elevated myocardial infarction (non-STEMI) I21.4 Hyponatremia E87.1 Pneumonia J18.9
[2021-01-27] MEDS: FUROsemide 10 mg/mL SDV 2mL 20 MG IVP (13:12)
[2021-01-27 18:04] LABS: Hematocrit 25.8 % (42.0-52.0); Hemoglobin 7.9 g/dL (11.7-16.6)
--- NOTE | 2021-01-27 18:07 | PC.NURSE ---
Dr. Montoya notified at this time via telephone of repeat H&H labs. New orders to recheck labs in the morning.
--- NOTE | 2021-01-27 18:55 | PC.NURSE ---
Dr. Montoya notified at this time via telephone of hematoma noted on right side going to flank. No new orders received at this time.
[2021-01-27] MEDS: tamsulosin 0.4 mg Capsule PO (21:03)
[2021-01-28] VITALS (7 sets, daily range): BP systolic 113–140; BP diastolic 9–78; PULSE 60–65; RESP 17–24; TEMP 36–36.7; O2SAT 90–100
--- NOTE | 2021-01-28 05:08 | PC.NURSE ---
Shift Note Frequent safety and comfort rounds continue. Orders and/or nursing care completed as indicated. Patient monitored for response to intervention and treatment(s). Education provided includes Use of IS patient does not understand teaching due to dementia. Patient remains on Room air. Patient is very confused and pulling at his monitor lines, IV and lacy. Will continue to monitor.
[2021-01-28] MEDS: levothyroxine 150 mcg Tablet PO (08:41)
[2021-01-28] MEDS: atorvastatin 40 mg Tablet PO (08:41)
[2021-01-28] MEDS: famotidine 20 mg Tablet PO ×2 (08:41→17:08)
[2021-01-28] MEDS: carvedilol 3.125 mg Tablet PO ×2 (08:41→17:08)
[2021-01-28 09:14] LABS: Basophils % 0.1 %; Eosinophils # 0.1 10^3/uL (0.0-0.8); Eosinophils % 0.5 %; Hematocrit 24.5 % (42.0-52.0); Hemoglobin 7.6 g/dL (11.7-16.6); Lymphocytes # 1.4 10^3/uL (0.8-4.8); Lymphocytes % 7.6 %; Mean Corpuscular Hemoglobin 24.8 pg (28.0-34.0); Mean Corpuscular Volume 80.1 fL (80-94); Mean Platelet Volume 11.4 fL (7.4-10.4); Monocytes # 1.7 10^3/uL (0.2-0.9); Monocytes % 8.9 %; Neutrophils # 15.22 10^3/uL (1.8-7.7); Neutrophils % 80.2 %; Nucleated Red Blood Cells # 0.2 /100WBC; Nucleated Red Blood Cells % 1.1 %; Platelet Count 328 10^3/cmm (130-400); Red Blood Count 3.06 10^6/uL (4.1-5.3); Red Cell Distribution Width 16.5 % (12.1-15.1)
[2021-01-28 09:43] LABS: Alanine Aminotransferase 13 U/L (0-41); Albumin Level 3.2 g/dL (3.5-5.2); Alkaline Phosphatase 97 IU/L (40-130); Aspartate Amino Transferase 31 U/L (0-40); Blood Urea Nitrogen 59 mg/dL (8-23); Calcium 7.8 mg/dL (8.5-10.5); Carbon Dioxide 17 mmol/L (22-29); Chloride 104 mmol/L (98-107); Globulin 2.3 g/dL (1.3-4.6); Glucose 100 mg/dL (65-115); Osmolality Calculated 299 mOsm/kg (285-295); Sodium 136 mmol/L (136-145); Total Bilirubin 1.4 mg/dL (0.15-1.2); Total Protein 5.5 g/dL (6.6-8.7)
--- NOTE | 2021-01-28 11:48 | CTR_ITS ---
PROCEDURE INFORMATION: Exam: CT Chest Without Contrast; Diagnostic Exam date and time: 01/28/2021 11:48 AM Age: 85 years old Clinical indication: Shortness of breath; Prior surgery; Surgery date: 6+ months; Surgery type: Pacer, cabg; Patient HX: Copd w covid; Additional info: Copd/pna TECHNIQUE: Imaging protocol: Diagnostic computed tomography of the chest without contrast. Radiation optimization: All CT scans at this facility use at least one of these dose optimization techniques: automated exposure control; mA and/or kV adjustment per patient size (includes targeted exams where dose is matched to clinical indication); or iterative reconstruction. COMPARISON: CR (CHEST, ) 01/23/2021 7:10 PM RADIATION DOSE METRICS: Total DLP (mGy-cm): 848.32 FINDINGS: Tubes, catheters and devices: Multi lead pacemaker device. Lungs: Patchy bilateral pulmonary ground-glass opacities. There is a bulla in the right middle lobe. Pleural spaces: There are bilateral pleural effusions with underlying compressive atelectasis or infiltrate. Heart: Cardiomegaly. Prosthetic aortic valve. Mediastinal space: There are post sternotomy changes and postoperative changes in the anterior mediastinum. Aorta: Unremarkable. No aortic aneurysm. Lymph nodes: There are pulmonary parenchymal calcifications consistent with remote granulomatous organism exposure.There are calcified mediastinal and perihilar lymph nodes consistent with prior granulomatous exposure. Diaphragm: There is elevation of the left hemidiaphragm. Gallbladder and bile ducts: Calcifications partially visualized in the region of the gallbladder fundus. There is artifact in this region making evaluation suboptimal. Bones/joints: There are degenerative changes in the visualized spine.There are diffuse enthesopathic changes consistent with benign diffuse idiopathic skeletal hyperostosis (DISH). Soft tissues: There is edema in the subcutaneous soft tissues surrounding the thorax and upper abdomen. CT/CT chest wo con [id number] IMPRESSION: 1. Patchy bilateral pulmonary ground-glass opacities are nonspecific and can be seen with pneumonia and/or pulmonary edema. 2. There are bilateral pleural effusions with underlying compressive atelectasis or infiltrate. 3. Cardiomegaly. In combination with bilateral pleural effusions, findings are consistent with congestive heart failure. Radiation Dose CTDIVOL = (mGy): DLP = 848.32 (mGy-cm)
--- NOTE | 2021-01-28 11:56 | PC.SOCIAL ---
IMM Update Pg. 2of IMM updated and reviewed with patient's over the phone, verbalized understanding.
[2021-01-28 12:17] LABS: Iron 24 ug/dL (59-158); Percent Saturation 8.2 % (20-50); Total Iron Binding Capacity 291 mcg/dl; Unsaturated Iron Binding 267 ug/dL (112-347)
--- NOTE | 2021-01-28 13:05 | P.PN_ITS ---
Subjective Subjective: Interval history: Hospital course, labs appreciated. On examination patient lying in bed with eyes closed. Awakens to physical touch, hard of hearing. On waking up series his head is hurting. Alert and oriented to self and is in the hospital. Cannot rule out to place. Has remained hemodynamically stable, currently on room air saturating 96%. Afebrile last 24 hours feels Medications: Reviewed: Yes Vitals/I&O/Wt Last Vital Signs Temp 97.7 F 01/28/21 12:00 Pulse 62 01/28/21 12:00 Resp 24 H 01/28/21 12:00 BP 113/52 01/28/21 12:00 Pulse Ox 99 01/28/21 12:00 01/27/21 01/28/21 01/28/21 22:59 06:59 14:59 Intake Total 100 / 450 100 / 550 100 / 100 Output Total 350 / 350 200 / 550 Balance -250 / 100 -100 / 0 100 / 100 Physical Exam Narrative: EXAM NARRATIVE: General exam is no apparent distress Neck is supple no lymphadenopathy or thyromegaly Cardiovascular regular rate and rhythm without murmur Lungs bilateral expiratory wheezes were noted. Abdomen is positive bowel sounds. Right rectus sheath without discoloration but tight. Extremities no cyanosis clubbing or edema Urinary Catheter Management^: Wang: Cath Placed During This Visit: yes Reason for Continuing Indwelling Catheter: Accurate Measurement of Urinary Output in Critically Ill Patients Urinary Catheter Date of Insertion: 01/23/21 Urinary Catheter Time of Insertion: 20:37 Data : 01/29/21 07:24 01/29/21 07:24 A&P Assessment and plan (1) Acute alteration in mental status: CT head negative for any acute abnormality. Could be secondary to worsening dementia in setting of possible UTI with ongoing COVID-19. Could be acute metabolic encephalopathy. Patient does not have any electrolyte abnormality, liver dysfunction. Previously was thought could be secondary to steroids but has not improved even after stopping steroids for now. Status: Acute (2) Urinary tract infection: Has chronic indwelling catheter. Urine culture negative but may have re ceived IV antibiotics prior to then's being obtained. Concerned this may be a complicated UTI with white blood cell count increasing, encephalopathy. Continue with vancomycin and Primaxin for now. Will follow culture results and de-escalate antibiotics accordingly. Patient has history of strep bacteremia in the past. CT abdomen results appreciated and negative for any obstructive pathology. Renal ultrasound results appreciated. MRSA swab negative. Patient's white count trending up. Check urine Legionella, bacterial antigen, fresh urinalysis, procalcitonin, urine culture. Check CT chest. Status: Acute (3) COVID-19: Post monoclonal antibodies on January 25. Monitor inflammatory markers including ESR, CRP, ferritin, chest x-ray every 48 hours. Currently patient on room air. No need for remdesivir for now. Altered mental status could be secondary to COVID-19 as well. We will continue to monitor if continues to worsen or not improve will start patient on dexamethasone. Status: Acute (4) Fall: Status: Acute (5) Hematoma: Status: Acute (6) Anemia: Status: Acute (7) Acute kidney injury: Status: Acute (8) Pneumonia: Patient currently on room air. Check CT chest as above. For now continue with Primaxin. MRSA negative. Urine Legionella and bacterial antigen negative. Sputum culture results awaited. Status: Acute (9) Arrhythmia: Status: Acute Qualifiers: Arrhythmia type: supraventricular tachycardia Qualified Code(s): I47.1 - Supraventricular tachycardia (10) S/P TAVR (transcatheter aortic valve replacement): Status: Acute (11) Chronic anticoagulation: Status: Acute (12) Non-ST elevated myocardial infarction (non-STEMI): Concern of non-ST elevation myocardial infarction. Cardiology consulted Lovenox and aspirin discontinued secondary to bleed Continue statin, beta-jacqueline Multiple arrhythmias noted on interrogation of pacemaker. Continue telemetry. Limited echocardiogram shows moderate LV systolic dysfunction with EF 40%, moderate global at hypokinesia, abnormal septal motion, moderately dilated right ventricle with moderately decreased right ventricular systolic function. Status: Acute Additional A&P Information Hematoma: Seems to be resolving as per the nurse. Seen on CT scan few days ago. Anticoagulation and aspirin withheld since then. Anemia. Acute blood loss associated with abdominal wall bleed. Lovenox, Plavix, aspirin all discontinued. Have already received 2 units of blood transfusion during hospitalization. Check iron panel. We will keep hemoglobin around 8 given history of CAD and TAVR along with congestive heart failure. Acute kidney injury: Baseline creatinine for last 2 months seems to be ranging from 1.3-1.5. Currently 1.7. Medical reconciliation done for nephrotoxic drugs. Continue to monitor BMP daily. Check urine studies including urine lites, urine creatinine, urinalysis. Once improve will consider adding diuretics. Hyponatremia, improved History of dementia Full code No anticoagulation given hematoma and anemia. Protonix OPD prophylaxis. Attestations Medical Necessity Statement*: Requires further hospitalization for management requires further hospitalization for management of acute kidney injury, altered mental status secondary to UTI and COVID-19., anemia, hematoma Time Spent in Patient Care: Greater than 35 minutes (>than 50% of time spent in counselling and/or direct pt care on unit) . Coding Level of Care Code Acute Slot Floor Attendant for Chg Fwd Diagnoses Acute alteration in mental status R41.82 Urinary tract infection N39.0 COVID-19 U07.1 Fall W19.XXXA Hematoma T14.8XXA Anemia D64.9 Acute kidney injury N17.9 Pneumonia J18.9 Arrhythmia I47.1 Arrhythmia type: supraventricular tachycardia S/P TAVR (transcatheter aortic valve replacement) Z95.2 Chronic anticoagulation Z79.01 Non-ST elevated myocardial infarction (non-STEMI) I21.4
--- NOTE | 2021-01-28 16:52 | PC.NUTR ---
Nutrition assessment completed for LOS. Nurse reports pt not likely to eat/drink without extensive assistance and encouragement at meals. Recommend liberalizing diet and adding supplement--received order from Dr. Gaytan. Have changed to Regular diet with 4 oz Nepro TID at this time. Recommend to assist pt at meals as needed to optimize nutrition. See full RD assessment for further details.
[2021-01-28 16:55] LABS: Bilirubin Urine 1+ (Negative); Blood Urine 2+ (Negative); Glucose Urine UA Norm (Normal); Ketones Urine 1+ (Negative); Leukocyte Esterase Urine 2+ (Negative); Nitrate Urine Negative (Negative); Protein Urine 1+ (Negative); Urine Appearance Cloudy (CLEAR); Urine Color Yellow (Yellow); Urobilinogen Urine 1 mg/dL (Negative); pH Urine 5 (5-7)
[2021-01-28 16:57] LABS: RBC Urine 15-25 /hpf (0-2); Squamous Epithelial Cell Urine 0-4 /hpf (0-5); WBC Urine TOO NUMEROUS TO CNT /hpf (0-5)
[2021-01-28 16:59] LABS: Add Urine Culture? Yes; Bacteria Urine 2+ /hpf
[2021-01-28] MEDS: ferrous gluconate 324 mg Tablet PO (17:08)
[2021-01-28 17:22] LABS: Potassium, Radom Urine 47 mmol/L; Urine Creatinine 149 mg/dL (39-259)
[2021-01-28 18:10] LABS: Urine Random Chloride < 10 mmol/L; Urine Random Sodium < 10 mmol/L
[2021-01-28 18:15] LABS: Eosinophil Urine No Eosinophils Seen; Urine Eosinophil Count 0 (0-0)
[2021-01-28] MEDS: tamsulosin 0.4 mg Capsule PO (20:20)
[2021-01-29] VITALS (9 sets, daily range): BP systolic 107–138; BP diastolic 63–86; PULSE 60–62; RESP 16–20; TEMP 36–36.6; O2SAT 96–100
--- NOTE | 2021-01-29 06:00 | XRR_ITS ---
PROCEDURE INFORMATION: Exam: XR Chest Exam date and time: 01/29/2021 6:00 AM Age: 85 years old Clinical indication: Dyspnea; Additional info: Covid TECHNIQUE: Imaging protocol: XR of the chest. Views: 1 view. COMPARISON: CT chest con [id number] 01/28/2021 3:58 PM FINDINGS: Lungs: There are patchy ground-glass opacities present, findings compatible with a interstitial pneumonia. Pleural spaces: Unremarkable. No pleural effusion. No pneumothorax. Heart/Mediastinum: Unremarkable. No cardiomegaly. Bones/joints: Unremarkable. XR/XR chest 1V portable [id number] IMPRESSION: Patchy ground-glass opacities compatible with a bilateral interstitial pneumonia.
[2021-01-29] MEDS: zinc gluconate 50 mg Tablet PO (07:48)
[2021-01-29] MEDS: atorvastatin 40 mg Tablet PO (07:48)
[2021-01-29] MEDS: levothyroxine 150 mcg Tablet PO (07:48)
[2021-01-29] MEDS: carvedilol 3.125 mg Tablet PO ×2 (07:48→17:46)
[2021-01-29] MEDS: ascorbic acid 500 mg Tablet 1000 MG PO (07:48)
[2021-01-29] MEDS: ferrous gluconate 324 mg Tablet PO ×2 (07:48→17:46)
[2021-01-29] MEDS: famotidine 20 mg Tablet PO ×2 (07:48→17:46)
[2021-01-29 08:08] LABS: Basophils % 0.2 %; Eosinophils # 0.3 10^3/uL (0.0-0.8); Hematocrit 23.3 % (42.0-52.0); Hemoglobin 7.2 g/dL (11.7-16.6); Lymphocytes # 1.4 10^3/uL (0.8-4.8); Lymphocytes % 9.5 %; Mean Corpuscular HGB Conc 30.9 g/dL (30.0-36.0); Mean Corpuscular Hemoglobin 25.7 pg (28.0-34.0); Mean Corpuscular Volume 83.2 fL (80-94); Mean Platelet Volume 11.5 fL (7.4-10.4); Monocytes # 1.3 10^3/uL (0.2-0.9); Monocytes % 9.1 %; Neutrophils # 11.14 10^3/uL (1.8-7.7); Neutrophils % 75.5 %; Nucleated Red Blood Cells # 0.2 /100WBC; Nucleated Red Blood Cells % 1.4 %; Platelet Count 284 10^3/cmm (130-400); Red Cell Distribution Width 17.1 % (12.1-15.1); White Blood Count 14.8 10^3/uL (4.0-10.0)
[2021-01-29 08:42] LABS: Alanine Aminotransferase 11 U/L (0-41); Albumin Level 3.2 g/dL (3.5-5.2); Alkaline Phosphatase 103 IU/L (40-130); Anion Gap 16.5 (5-19); Aspartate Amino Transferase 29 U/L (0-40); Blood Urea Nitrogen 64 mg/dL (8-23); Calcium 7.8 mg/dL (8.5-10.5); Carbon Dioxide 17 mmol/L (22-29); Chloride 106 mmol/L (98-107); Creatinine Clr Calc Pharmacy 32.1058; Globulin 2.2 g/dL (1.3-4.6); Glucose 82 mg/dL (65-115); Osmolality Calculated 297 mOsm/kg (285-295); Potassium 4.5 mmol/L (3.5-5.1); Sodium 135 mmol/L (136-145); Total Protein 5.4 g/dL (6.6-8.7)
[2021-01-29 09:57] LABS: Estmated Average Glucose 108; Hemoglobin A1C 5.4 % (4.0-6.0); NT Pro B Type Natriuretic Pept 3186 pg/mL (0-450); Procalcitonin 0.53 ng/mL (0-0.5)
[2021-01-29 10:08] LABS: C Reactive Protein 42.1 mg/L (0.0-4.9); Creatine Phosphokinase 228 U/L (39-308); Ferritin 108 ng/mL (30-400)
[2021-01-29 10:20] LABS: Erythrocyte Sedimentation Rate 15 mm/hr (0-10)
[2021-01-29] MEDS: dexamethasone 4 mg/mL INJ 3 MG IVP (12:42)
--- NOTE | 2021-01-29 15:08 | PC.SLP ---
Attempted to see patient for bedside swallowing evaluation. Patient was unable to be fully alert to participate in the evaluation. Will continue to monitor and evaluate when patient is able to participate.
[2021-01-29] MEDS: tamsulosin 0.4 mg Capsule PO (17:46)
[2021-01-29] MEDS: magnesium hydroxide 30 mL UDC PO (18:03)
--- NOTE | 2021-01-29 23:36 | P.PN_ITS ---
Subjective Subjective: Interval history: No acute events overnight. On exam patient looks comfortable in bed. Denies nay N/V. Alot more awake and alert today. Has remained hemodynamically stable and afebrile. As per my conversation with patient's daughter and over the phone today ,patient has been getting progressively more and more confused since March and got acutely worse for last 1 week in which he fell and hit the side on last Saturday because of which she was brought to the ER. Patient's also stated that she spoke with patient over the phone and he seemed to be at his baseline mentation to her during the conversation. As per the patient's family patient does not really move around the home too much since last March. We also discussed possible options for discharge including SNF versus home health. Patient's daughter opted for home health currently and stated that going to senior living would make him more confused. We also discussed that if his mentation remained stable as of today for next 48 hours and without any oxygen requirement we will plan to discharge and patient's daughter is agreeable to same. Medications: Reviewed: Yes Vitals/I&O/Wt Last Vital Signs Temp 96.8 F L 01/29/21 20:00 Pulse 60 01/29/21 20:00 Resp 16 01/29/21 20:00 BP 107/86 01/29/21 20:00 Pulse Ox 96 01/29/21 20:00 01/29/21 01/29/21 01/30/21 14:59 22:59 06:59 Intake Total 460 / 460 150 / 610 Output Total 450 / 450 300 / 750 Balance 10 / 10 -150 / -140 Physical Exam Narrative: EXAM NARRATIVE: General exam is no apparent distress Neck is supple no lymphadenopathy or thyromegaly Cardiovascular regular rate and rhythm without murmur Lungs bilateral expiratory wheezes were noted. Abdomen is positive bowel sounds. Right rectus sheath without discoloration but tight. Extremities no cyanosis clubbing or edema Urinary Catheter Management^: Wang: Cath Placed During This Visit: yes Reason for Continuing Indwelling Catheter: Accurate Measurement of Urinary Output in Critically Ill Patients Urinary Catheter Date of Insertion: 01/23/21 Urinary Catheter Time of Insertion: 20:37 Data : 01/29/21 07:24 01/29/21 07:24 Micro: Microbiology 01/23/21 20:36 Blood Culture - Final Blood Bacillus sp not b. anthracis 01/28/21 14:25 Urine Culture - Preliminary Urine Catheterized 01/23/21 20:34 Blood Culture - Final Blood NO GROWTH AFTER 5 DAYS A&P Assessment and plan (1) Acute alteration in mental status: CT head negative for any acute abnormality. Could be secondary to worsening dementia in setting of possible UTI with ongoing COVID-19. Could be acute metabolic encephalopathy. Patient does not have any electrolyte abnormality, liver dysfunction. Previously was thought could be secondary to steroids but has not improved even after stopping steroids for now. Status: Acute (2) Urinary tract infection: Has chronic indwelling catheter. Urine culture negative but may have received IV antibiotics prior to then's being obtained. Concerned this may be a complicated UTI with white blood cell count increasing, encephalopathy. Continue with Primaxin for now. Will follow culture results and de-escalate antibiotics accordingly. Patient has history of strep bacteremia in the past. CT abdomen results appreciated and negative for any obstructive pathology. Renal ultrasound results appreciated. MRSA swab negative. Patient's white count trending up. Urine Legionella urine Legionella, procalcitonin negativawaited. A fresh urinalysis stable as before other than mild increase in WBCs. Status: Acute (3) COVID-19: Post monoclonal antibodies on January 25. Monitor inflammatory markers including ESR, CRP, ferritin, chest x-ray every 48 hours. Start patient on Advair, Spiriva. Vitamin C, zinc. Incentive spirometry, flutter valve.. Currently on room air. No need for remdesivir for now. Altered mental status could be secondary to COVID-19 as well. We will continue to monitor if continues to worsen or not improve will start patient on dexamethasone. Status: Acute (4) Fall: Status: Acute (5) Hematoma: Status: Acute (6) Anemia: Status: Acute (7) Acute kidney injury: Status: Acute (8) Pneumonia: Patient currently on room air. Check CT chest as above. For now continue with Primaxin. MRSA negative. Urine Legionella and bacterial antigen negative. Sputum culture results awaited. Status: Acute (9) Arrhythmia: Status: Acute Qualifiers: Arrhythmia type: supraventricular tachycardia Qualified Code(s): I47.1 - Supraventricular tachycardia (10) S/P TAVR (transcatheter aortic valve replacement): Status: Acute (11) Chronic anticoagulation: Status: Acute (12) Non-ST elevated myocardial infarction (non-STEMI): Concern of non-ST elevation myocardial infarction. Cardiology consulted Lovenox and aspirin discontinued secondary to bleed Continue statin, beta-jacqueline Multiple arrhythmias noted on interrogation of pacemaker. Continue telemetry. Limited echocardiogram shows moderate LV systolic dysfunction with EF 40%, moderate global at hypokinesia, abnormal septal motion, moderately dilated right ventricle with moderately decreased right ventricular systolic function. Status: Acute Additional A&P Information Hematoma: Seems to be resolving as per the nurse. Seen on CT scan few days ago. Anticoagulation and aspirin withheld since then. Anemia: Getting worse. Hemoglobin 7.2 Post 2 unit transfusion earlier in admission. Repeat 1 unit of PRBC transfusion if needed can give 40 mg of IV Lasix in between. Start patient on oral iron supplementation. For now continue to hold off on anticoagulation for Plavix and aspirin. We will keep hemoglobin around 8 given history of CAD and TAVR along with congestive heart failure. Acute kidney injury: Baseline creatinine for last 2 months seems to be ranging from 1.3-1.5. Currently 1.7. Blood transfusion should help with acute kidney injury as well. Medical reconciliation done for nephrotoxic drugs. Continue to monitor BMP daily. Check urine studies including urine lites, urine creatinine, urinalysis. Once improve will consider adding diuretics. Hyponatremia, improved History of dementia Full code No anticoagulation given hematoma and anemia. Protonix OPD prophylaxis. Swallow evaluation. Start patient on mechanical soft with Ensure. PT/OT Attestations Medical Necessity Statement*: Requires further hospitalization, most possible UTI, COVID-19, acute kidney injury, anemia secondary to hematoma in setting of chronic anticoagulation for TAVR and atrial fibrillation. Time Spent in Patient Care: Greater than 35 minutes (>than 50% of time spent in counselling and/or direct pt care on unit) . Coding Level of Care Code Acute Relay Shop Supervisor for Rod Fwd Diagnoses Acute alteration in mental status R41.82 Urinary tract infection N39.0 COVID-19 U07.1 Fall W19.XXXA Hematoma T14.8XXA Anemia D64.9 Acute kidney injury N17.9 Pneumonia J18.9 Arrhythmia I47.1 Arrhythmia type: supraventricular tachycardia S/P TAVR (transcatheter aortic valve replacement) Z95.2 Chronic anticoagulation Z79.01 Non-ST elevated myocardial infarction (non-STEMI) I21.4
[2021-01-30] VITALS (10 sets, daily range): BP systolic 108–153; BP diastolic 67–102; PULSE 60–68; RESP 13–20; TEMP 35.7–36.7; O2SAT 85–100
[2021-01-30 06:15] LABS: Basophils % 0.2 %; Eosinophils % 0.1 %; Hematocrit 29.1 % (42.0-52.0); Hemoglobin 9.3 g/dL (11.7-16.6); Lymphocytes % 7.5 %; Mean Corpuscular Volume 84.6 fL (80-94); Mean Platelet Volume 11.6 fL (7.4-10.4); Monocytes # 0.9 10^3/uL (0.2-0.9); Monocytes % 6.6 %; Neutrophils # 10.79 10^3/uL (1.8-7.7); Neutrophils % 81.5 %; Nucleated Red Blood Cells # 0.3 /100WBC; Nucleated Red Blood Cells % 2.6 %; Platelet Count 265 10^3/cmm (130-400); Red Blood Count 3.44 10^6/uL (4.1-5.3); Red Cell Distribution Width 18.3 % (12.1-15.1); White Blood Count 13.2 10^3/uL (4.0-10.0)
[2021-01-30 06:32] LABS: Alanine Aminotransferase 12 U/L (0-41); Albumin Level 3.5 g/dL (3.5-5.2); Alkaline Phosphatase 152 IU/L (40-130); Anion Gap 19.3 (5-19); Aspartate Amino Transferase 29 U/L (0-40); Blood Urea Nitrogen 59 mg/dL (8-23); Carbon Dioxide 19 mmol/L (22-29); Chloride 106 mmol/L (98-107); Glucose 104 mg/dL (65-115); Osmolality Calculated 305 mOsm/kg (285-295); Potassium 5.3 mmol/L (3.5-5.1); Sodium 139 mmol/L (136-145); Total Bilirubin 1.6 mg/dL (0.15-1.2); Total Protein 5.5 g/dL (6.6-8.7)
[2021-01-30 06:50] LABS: C Reactive Protein 33.1 mg/L (0.0-4.9); NT Pro B Type Natriuretic Pept 5087 pg/mL (0-450)
[2021-01-30] MEDS: ferrous gluconate 324 mg Tablet PO ×2 (09:14→17:41)
[2021-01-30] MEDS: zinc gluconate 50 mg Tablet PO (09:14)
[2021-01-30] MEDS: sodium bicarbonate 650 mg Tablet PO ×3 (09:15→20:07)
[2021-01-30] MEDS: carvedilol 3.125 mg Tablet PO ×2 (09:15→17:41)
[2021-01-30] MEDS: atorvastatin 40 mg Tablet PO (09:15)
[2021-01-30] MEDS: famotidine 20 mg Tablet PO ×2 (09:15→17:41)
[2021-01-30] MEDS: levothyroxine 150 mcg Tablet PO (09:15)
[2021-01-30] MEDS: dextrose 50% syringe 50 mL IVP (09:17)
[2021-01-30] MEDS: insulin regular-human 10 UNIT in SYRINGE 1 EACH IVP (09:17)
--- NOTE | 2021-01-30 09:52 | PC.CHAP ---
Pastoral Care Encounter/Spiritual Assessment Type of Contact [] Declined hotel baggage handler visit [] Patient/Family/Request visit [] Outpatient visit [] Follow-up visit [] Physician referral [] Code/Alert [x] Routine visit [] Staff referral [] Actively dying [] Patient sleeping [] Family support [] [] Out of room [] Palliative care [] [] Receiving care in room [] Pre-surgical visit [] Trauma [] Long length of stay [] ICU visit [x] Other: covid Relational/Emotional Strength [] Patient feels connected with others/family/visitors/staff [] Distress [] Loneliness/isolation [] Abandonment Spirituality of Patient [] Person of [place] [] Attends Episcopalian of their [place] [] Believes in Prayer [] Reads Bible or Religion materials [] There are Spiritual issues to be addressed Linking Machine Operator Interventions [x] Prayer [] Active listening [] Non-anxious presence [] Spiritual/emotional support [] Crisis/trauma care [] Spiritual counseling [] Bereavement support [] Provided bereavement packet [] Provided Bible/devotional materials [] Provided toy/stuffed animal, coloring book to patient or family member [] Provided Communion [] Anointing/[place] [] Salvation [x] Completed spiritual assessment [] Other: Impact on Illness or Injury [] Angry [] Fearful [] Anxious [] Often cries [] Exhaustion [] Unable to work [] Unable to attend restoration [] Unable to walk/stand [] Unable to read [] Unable to drive [] Unable to eat/drink [] Unable to sleep [] Unable to be with family [] Patient intubated [] Other: Summary Time spent with patient
--- NOTE | 2021-01-30 10:00 | PC.SOCIAL ---
IMM Update Pg. 2 of IMM updated and reviewed with patient's over the phone, who verbalized understanding.
[2021-01-30] MEDS: dexamethasone 4 mg/mL INJ 3 MG IVP (11:39)
--- NOTE | 2021-01-30 14:57 | P.PN_ITS ---
Subjective Subjective: Interval history: No acute events overnight. 24 hours patient received 1 unit of blood count. He tolerated transfusion well. Today morning examination he is lying comfortably in bed. More awake and alert than yesterday. Able to have some conversation. Hard of hearing. Pleasant. Medications: Reviewed: Yes Vitals/I&O/Wt Last Vital Signs Temp 98.0 F 01/30/21 11:55 Pulse 60 01/30/21 11:55 Resp 13 01/30/21 11:55 BP 121/71 01/30/21 11:55 Pulse Ox 98 01/30/21 11:55 01/29/21 01/30/21 01/30/21 22:59 06:59 14:59 Intake Total 150 / 610 200 / 810 700.1 / 700.1 Output Total 300 / 750 650 / 1400 Balance -150 / -140 -450 / -590 700.1 / 700.1 Physical Exam Narrative: EXAM NARRATIVE: General exam is no apparent distress Neck is supple no lymphadenopathy or thyromegaly Cardiovascular regular rate and rhythm without murmur Lungs bilateral expiratory wheezes were noted. Abdomen is positive bowel sounds. Right rectus sheath without discoloration but tight. Extremities no cyanosis clubbing or edema Urinary Catheter Management^: Wang: Cath Placed During This Visit: yes Reason for Continuing Indwelling Catheter: Accurate Measurement of Urinary Output in Critically Ill Patients Urinary Catheter Date of Insertion: 01/23/21 Urinary Catheter Time of Insertion: 20:37 Data : 01/30/21 05:15 01/30/21 05:15 Micro: Microbiology 01/28/21 14:25 Urine Culture - Final Urine Catheterized 01/23/21 20:36 Blood Culture - Final Blood Bacillus sp not b. anthracis A&P Assessment and plan (1) Acute alteration in mental status: CT head negative for any acute abnormality. Could be secondary to worsening dementia in setting of possible UTI with ongoing COVID-19. Less likely acute metabolic encephalopathy. Patient does not have any electrolyte abnormality, liver dysfunction. Previously was thought could be secondary to steroids but has not improved even after stopping steroids for now. Status: Acute (2) Urinary tract infection: Has chronic indwelling catheter. Urine culture negative but may have received IV antibiotics prior to then's being obtained. Concerned this may be a complicated UTI with white blood cell count increasing, encephalopathy. Continue with Primaxin for now. Will follow culture results and de-escalate antibiotics accordingly. Patient has history of strep bacteremia in the past. Since admission from January 23 patient was on Rocephin which was changed to Primaxin and vancomycin on January 25. Vancomycin was stopped on January 26. Patient has been on Primaxin since January 25. Day six today. Will finish a 7- day course. CT abdomen results appreciated and negative for any obstructive pathology. Renal ultrasound results appreciated. MRSA swab negative. Repeat urine culture negative. Pro-Agusto mildly positive most likely secondary to EMILY. Will repeat procalcitonin and trend today. Urine Legionella, bacterial antigen negative. Status: Acute (3) COVID-19: Post monoclonal antibodies on January 25. Monitor inflammatory markers including ESR, CRP, ferritin, chest x-ray every 48 hours. Start patient on Advair, Spiriva. Vitamin C, zinc. Incentive spirometry, flutter valve.. Currently on room air. No need for remdesivir for now. Altered mental status could be secondary to COVID-19 as well. Continue with oral dexamethasone 3 mg daily. Most likely patient will require a short 10-day course. Status: Acute (4) Fall: Status: Acute (5) Hematoma: Status: Acute (6) Anemia: Status: Acute (7) Acute kidney injury: Status: Acute (8) Pneumonia: Patient currently on room air. Check CT chest as above. For now continue with Primaxin. MRSA negative. Urine Legionella and bacterial antigen negative. Sputum culture results awaited. Status: Acute (9) Arrhythmia: Status: Acute Qualifiers: Arrhythmia type: supraventricular tachycardia Qualified Code(s): I47.1 - Supraventricular tachycardia (10) S/P TAVR (transcatheter aortic valve replacement): Status: Acute (11) Chronic anticoagulation: Status: Acute (12) Non-ST elevated myocardial infarction (non-STEMI): Concern of non-ST elevation myocardial infarction. Cardiology consulted Lovenox and aspirin discontinued secondary to bleed Continue statin, beta-jacqueline Multiple arrhythmias noted on interrogation of pacemaker. Continue telemetry. Limited echocardiogram shows moderate LV systolic dysfunction with EF 40%, moderate global at hypokinesia, abnormal septal motion, moderately dilated right ventricle with moderately decreased right ventricular systolic function. Status: Acute Additional A&P Information Hematoma: Seems to be resolving as per the nurse. Seen on CT scan few days ago. Anticoagulation and aspirin withheld since then. Anemia: Getting worse. Hemoglobin better today. Overall patient has received 3 units of PRBC transfusion with last on January 29. Continue with oral iron supplementation. For now continue to hold off on anticoagulation for Plavix and aspirin. Most likely will hold off on next 1 week. We will keep hemoglobin around 8 given history of CAD and TAVR along with congestive heart failure. Acute kidney injury: Baseline creatinine for last 2 months seems to be ranging from 1.3-1.5. Resolved today. Patient's BUN still elevated. Start on Lasix 40 mg oral daily. Start on bicarb 650 mg three times a day for mild metabolic acidosis. Medical reconciliation done for nephrotoxic drugs. Continue to monitor BMP daily. Hyponatremia, improved History of dementia CODE STATUS: Discussed CODE STATUS with patient's daughter yesterday. Today patient's called back saying that there discussed among themselves and for now they would not want any heroic measures. CODE STATUS changed to allow natural . No anticoagulation given hematoma and anemia. Protonix PUD prophylaxis. Swallow evaluation. Start patient on mechanical soft with Ensure. PT/OT Discharge planning: Plan to discharge home with HH if he remains hemodynamically stable, on room air and at baseline mentation for next 24 hours. Care discussed in detail with both daughter and over the phone. All the questions were answered. Attestations Medical Necessity Statement*: Patient requires further hospitalization for management of altered mental status due to worsening dementia in setting of UTI, COVID-19 pneumonia, hematoma leading to acute blood loss anemia and acute kidney injury in setting of chronic anticoagulation for atrial fibrillation and post TAVR status. Time Spent in Patient Care: Greater than 35 minutes (>than 50% of time spent in counselling and/or direct pt care on unit) . Coding Level of Care Code Acute [employer] for Baldomerog Fwd Diagnoses Acute alteration in mental status R41.82 Urinary tract infection N39.0 COVID-19 U07.1 Fall W19.XXXA Hematoma T14.8XXA Anemia D64.9 Acute kidney injury N17.9 Pneumonia J18.9 Arrhythmia I47.1 Arrhythmia type: supraventricular tachycardia S/P TAVR (transcatheter aortic valve replacement) Z95.2 Chronic anticoagulation Z79.01 Non-ST elevated myocardial infarction (non-STEMI) I21.4
[2021-01-30 16:09] LABS: Procalcitonin 0.04 ng/mL (0-0.5)
[2021-01-30] MEDS: acetaminophen 325 mg Tablet 650 MG PO (16:31)
[2021-01-30] MEDS: benzonatate 100 mg Capsule PO (16:32)
--- NOTE | 2021-01-30 17:43 | PC.RESP ---
RT Shift Note Frequent safety and respiratory rounds continue. Orders completed as indicated. Patient monitored pre and post treatments throughout shift. Patient tolerated treatments appropriately. Condition did not change. Patient and/or communications representative educated on respiratory treatment and medications. Patient and/or communications representative verbalized understanding. Will continue to monitor patient progress.
[2021-01-30] MEDS: tamsulosin 0.4 mg Capsule PO (20:07)
[2021-01-31] VITALS (8 sets, daily range): BP systolic 121–140; BP diastolic 64–73; PULSE 60–71; RESP 16–20; TEMP 36.4–37; O2SAT 95–100
--- NOTE | 2021-01-31 06:00 | XRR_ITS ---
PROCEDURE INFORMATION: Exam: XR Chest Exam date and time: 01/31/2021 6:00 AM Age: 85 years old Clinical indication: Cough; Patient HX: Follow up covid TECHNIQUE: Imaging protocol: XR of the chest. Views: 1 view. COMPARISON: CR (CHEST, ) 01/29/2021 5:02 AM FINDINGS: Tubes, catheters and devices: There is an AICD with intact leads in good position. Lungs: Stable linear atelectasis or scar in the right lung. Pleural spaces: Unremarkable. No pleural effusion. No pneumothorax. Heart/Mediastinum: There is mild cardiomegaly. Bones/joints: There has been a median sternotomy. XR/XR chest 1V portable [id number] IMPRESSION: 1. Mild cardiomegaly. 2. No acute disease.
[2021-01-31 07:12] LABS: Basophils % 0.2 %; Eosinophils % 0.1 %; Hematocrit 30.6 % (42.0-52.0); Hemoglobin 9.4 g/dL (11.7-16.6); Lymphocytes # 1.1 10^3/uL (0.8-4.8); Lymphocytes % 5.8 %; Mean Corpuscular HGB Conc 30.7 g/dL (30.0-36.0); Mean Corpuscular Hemoglobin 26.5 pg (28.0-34.0); Mean Corpuscular Volume 86.2 fL (80-94); Monocytes # 0.9 10^3/uL (0.2-0.9); Monocytes % 5.1 %; Neutrophils # 15.93 10^3/uL (1.8-7.7); Neutrophils % 86.6 %; Nucleated Red Blood Cells # 0.2 /100WBC; Nucleated Red Blood Cells % 0.8 %; Platelet Count 272 10^3/cmm (130-400); Red Blood Count 3.55 10^6/uL (4.1-5.3); Red Cell Distribution Width 18.7 % (12.1-15.1); White Blood Count 18.4 10^3/uL (4.0-10.0)
[2021-01-31 07:54] LABS: Alanine Aminotransferase 11 U/L (0-41); Albumin Level 3.5 g/dL (3.5-5.2); Alkaline Phosphatase 145 IU/L (40-130); Anion Gap 14.4 (5-19); Aspartate Amino Transferase 25 U/L (0-40); Blood Urea Nitrogen 51 mg/dL (8-23); Calcium 8.1 mg/dL (8.5-10.5); Carbon Dioxide 21 mmol/L (22-29); Chloride 109 mmol/L (98-107); Glucose 100 mg/dL (65-115); Osmolality Calculated 302 mOsm/kg (285-295); Potassium 5.4 mmol/L (3.5-5.1); Sodium 139 mmol/L (136-145); Total Bilirubin 1.5 mg/dL (0.15-1.2); Total Protein 5.5 g/dL (6.6-8.7)
[2021-01-31 07:56] LABS: C Reactive Protein 20.4 mg/L (0.0-4.9); NT Pro B Type Natriuretic Pept 4268 pg/mL (0-450)
[2021-01-31 08:57] LABS: Erythrocyte Sedimentation Rate 8 mm/hr (0-10)
[2021-01-31] MEDS: carvedilol 3.125 mg Tablet PO (09:05)
[2021-01-31] MEDS: famotidine 20 mg Tablet PO (09:05)
[2021-01-31] MEDS: levothyroxine 150 mcg Tablet PO (09:05)
[2021-01-31] MEDS: zinc gluconate 50 mg Tablet PO (09:05)
[2021-01-31] MEDS: ferrous gluconate 324 mg Tablet PO (09:06)
[2021-01-31] MEDS: sodium bicarbonate 650 mg Tablet PO (09:06)
[2021-01-31] MEDS: atorvastatin 40 mg Tablet PO (09:06)
[2021-01-31] MEDS: FUROsemide 40 mg Tablet PO (09:08)
[2021-01-31] MEDS: ascorbic acid 500 mg Tablet 1000 MG PO (09:11)
--- NOTE | 2021-01-31 11:28 | P.DS_ITS ---
Discharge Providers Date of Admission: 01/23/21 22:03 Date of Discharge: January 31, 2021 Attending Provider at Admission: Bo Wilson MD Attending Provider at Discharge: Deyvi Gaytan MD Consults: Cardiology: Dr. Forman Primary Care Provider: Jacquie Coto NP Diagnoses at Discharge Discharge Diagnosis (1) Acute alteration in mental status: Status: Acute (2) Urinary tract infection: Status: Acute (3) COVID-19: Status: Acute (4) Fall: Status: Acute (5) Hematoma: Status: Acute (6) Anemia: Status: Acute (7) Acute kidney injury: Status: Acute (8) Pneumonia: Status: Acute (9) Arrhythmia: Status: Acute Qualifiers: Arrhythmia type: supraventricular tachycardia Qualified Code(s): I47.1 - Supraventricular tachycardia (10) S/P TAVR (transcatheter aortic valve replacement): Status: Acute (11) Chronic anticoagulation: Status: Acute (12) Non-ST elevated myocardial infarction (non-STEMI): Status: Acute Reason for Visit 2 Reason for Visit: FEVER, COUGH, COVID Hospital Course Hospital Course Most of the history taken from chart review and through phone call with daughter. Tank Saavedra is a 85 year old male who has history of dementia, hematuria, BPH, chronic indwelling catheter currently being managed by Dr. Young, tested positive on 01/20 with COVID-19, presented today from home with chief complaint of confusion and a fall. Daughter is stating that normally he would turn his room light on whenever he wakes up however this was not done today and when his checked on him he found him on the floor, face facing towards the carpet, his walker and bedside commode had also fallen on the floor. He was assisted by son to get up, he ate afterwards and took his meds and drank decent amount of fluids with it. He was complaining of dysuria today. He never complained of any chest pain, no evidence of vomiting. His mentation is fluctuant. Because of these concerns he was brought to the hospital for the evaluation. On further interview family stated that patient has been getting more since March which has gotten worse for last 2 months. Patient has recurrent falls while being at home. Patient was brought to the hospital for further management of confusion, fall. For COVID-19 patient remained on room air throughout his hospitalization though had mild elevation in inflammatory markers for which he received monoclonal antibodies. Patient's urinalysis on admission once found to be concerning for possible UTI given his history of indwelling Wang catheter as an outpatient for persistent urine retention. He was started on broad-spectrum antibiotics. Patient has been on antibiotics for last 7 days and is finished his course of IV antibiotics. Patient has remained afebrile for last 4 to 5 days. For confusion various etiologies including metabolic encephalopathy, stroke doubt with blood work and CT head. It is believed patient's confusion is most likely secondary to worsening of dementia because of acute infection from COVID- 19 and possible UTI. During hospitalization patient was also found to have worsening anemia. CT abdomen pelvis was done because of history of fall prior to coming in and he was found to have a huge hematoma in the flank region. For that patient's home dose of Pradaxa and Plavix was stopped. During hospitalization he received overall 3 unit of blood transfusion and his hemoglobin has remained stable for 2 days. Patient takes Pradaxa at home for atrial fibrillation. Benefits and demerits of anticoagulation was discussed with family. It was discussed that unfortunately at his age with worsening confusion because of dementia patient is at high risk of fall and having catastrophic bleed along with catastrophic stroke more than a possible thromboembolic event so his anticoagulation should be stopped. Patient's and daughter shared the same concerns and agreed on stopping the medications for now. Above all above discussed with patient's Ms. Barros and daughter Ms. Rodriges for safe discharge planning several options were discussed including placement to SNF versus home with home health. Patient's family believed that his confusion would become better if he comes home in his familiar settings and would want to give it a try. They also stated if they are not able to take care of him at home they will discuss placement to SNF with his primary care provider. Home health has been arranged for the patient. Goals of care discussions were also done given his advanced age, CHF, history of CABG and TAVR along with worsening dementia. Patient's CODE STATUS was changed to DNR/DNI. Patient is been discharged in hemodynamically stable condition on room air with advised to follow-up with his primary care provider within next 1 week for repeat CBC and CMP. Physical Exam Narrative: EXAM NARRATIVE: General exam is no apparent distress Neck is supple no lymphadenopathy or thyromegaly Cardiovascular regular rate and rhythm without murmur Lungs bilateral expiratory wheezes were noted. Abdomen is positive bowel sounds. Right rectus sheath without discoloration but tight. Extremities no cyanosis clubbing or edema Urinary Catheter Management^: Wang: Cath Placed During This Visit: yes Reason for Continuing Indwelling Catheter: Accurate Measurement of Urinary Output in Critically Ill Patients Urinary Catheter Date of Insertion: 01/23/21 Urinary Catheter Time of Insertion: 20:37 Discharge Data Data Completed and Pending: Completed Studies During Hospitalization Category Date Time Status CT abdomen pelvis wo con 87637 Rout ine Cat Scan 01/26/21 12:[address] chest wo con 7 1250 Urgent Cat Scan 01/28/21 11:[address] head wo con* 7 0450 Stat Cat Scan 01/23/21 19:02 Completed XR chest 1V zurdo ble 73975 Q48H Exams 01/29/21 06:00 Completed XR chest 1V zurdo ble 53854 Q48H Exams 01/31/21 06:00 Completed XR chest 1V zurdo ble 01422 Stat Exams 01/23/21 18:54 Completed CV echo limited 9 3308 Routine Ultrasound 01/24/21 00:10 Completed US renal BI* 7677 0 Routine Ultrasound 01/26/21 15:01 Completed Pending at discharge Category Date Time Status XR chest 1V zurdo ble 74680 Q48H Exams 02/02/21 06:00 Ordered RED BLOOD CELLS [ Leukocyte Reduced RBC] Routine Lab 01/27/21 08:31 Results Sputum Culture an d Gram Stain Routi ne Lab 01/25/21 14:38 Uncollected Type and Screen R outine Lab 01/27/21 08:31 Results Labs from last 24 hours 01/31/21 01/31/21 01/31/21 05:50 05:50 05:50 WBC 18.4 H RBC 3.55 L Hgb 9.4 L Hct 30.6 L MCV 86.2 MCH 26.5 L MCHC 30.7 RDW 18.7 H Plt Count 272 MPV 12.0 H Neut % (Auto) 86.6 Lymph % (Auto) 5.8 [place] % (Auto) 5.1 Eos % (Auto) 0.1 Baso % (Auto) 0.2 Neut # (Auto) 15.93 H Lymph # (Auto) 1.1 [place] # (Auto) 0.9 Eos # (Auto) 0.0 Baso # (Auto) 0.0 Nucleated RBC % (a uto) 0.8 Nucleated RBCs # 0.2 ESR Sodium 139 Potassium 5.4 H Chloride 109 H Carbon Dioxide 21 L Anion Gap 14.4 BUN 51 H Creatinine 1.0 GFR Calculation Not Reportable Glucose 100 Calculated Osmolal ity 302 H Calcium 8.1 L Total Bilirubin 1.5 H AST 25 ALT 11 Alkaline Phosphata se 145 H C-Reactive Protein 20.4 H NT-Pro-B Natriuret Pep 4268 H Total Protein 5.5 L Albumin 3.5 Globulin 2.0 Procalcitonin 01/31/21 01/30/21 05:50 05:55 WBC RBC Hgb Hct MCV MCH MCHC RDW Plt Count MPV Neut % (Auto) Lymph % (Auto) [place] % (Auto) Eos % (Auto) Baso % (Auto) Neut # (Auto) Lymph # (Auto) [place] # (Auto) Eos # (Auto) Baso # (Auto) Nucleated RBC % (a uto) Nucleated RBCs # ESR 8 Sodium Potassium Chloride Carbon Dioxide Anion Gap BUN Creatinine GFR Calculation Glucose Calculated Osmolal ity Calcium Total Bilirubin AST ALT Alkaline Phosphata se C-Reactive Protein NT-Pro-B Natriuret Pep Total Protein Albumin Globulin Procalcitonin 0.04 Addt'l Data from Hospital Stay: Laboratory Results WBC 18.4 10^3/uL (4.0 -10.0) H 01/31/21 05:50 RBC 3.55 10^6/uL (4.1 -5.3) L 01/31/21 05:50 Hgb 9.4 g/dL (11.7-16 .6) L 01/31/21 05:50 Hct 30.6 % (42.0-52.0 ) L 01/31/21 05:50 MCV 86.2 fL (80-94) 01/31/21 05:50 MCH 26.5 pg (28.0-34. 0) L 01/31/21 05:50 MCHC 30.7 g/dL (30.0-3 6.0) 01/31/21 05:50 RDW 18.7 % (12.1-15.1 ) H 01/31/21 05:50 Plt Count 272 10^3/cmm (130 -400) 01/31/21 05:50 MPV 12.0 fL (7.4-10.4 ) H 01/31/21 05:50 Neut % (Auto) 86.6 % 01/31/21 05:50 Lymph % (Auto) 5.8 % 01/31/21 05:50 [place] % (Auto) 5.1 % 01/31/21 05:50 Eos % (Auto) 0.1 % 01/31/21 05:50 Baso % (Auto) 0.2 % 01/31/21 05:50 Neut # (Auto) 15.93 10^3/uL (1. 8-7.7) H 01/31/21 05:50 Lymph # (Auto) 1.1 10^3/uL (0.8- 4.8) 01/31/21 05:50 [place] # (Auto) 0.9 10^3/uL (0.2- 0.9) 01/31/21 05:50 Eos # (Auto) 0.0 10^3/uL (0.0- 0.8) 01/31/21 05:50 Baso # (Auto) 0.0 10^3/uL (0.0- 0.1) 01/31/21 05:50 Nucleated RBC % (a uto) 0.8 % 01/31/21 05:50 Nucleated RBCs # 0.2 /100WBC 01/31/21 05:50 ESR 8 mm/hr (0-10) 01/31/21 05:50 PT 17.20 SECONDS (12 .1-14.9) H 01/23/21 20:36 INR 1.36 (0.8-1.2) H 01/23/21 20:36 APTT 208.0 SECONDS (23 .9-36.7) H* D 01/24/21 09:20 D-Dimer 0.81 ug/mIFEU (0- 0.59) H 01/23/21 20:36 Specimen Type Arterial 01/23/21 20:07 Sample Site Radial, right 01/23/21 20:07 ABG pH 7.46 (7.35-7.45) H 01/23/21 20:07 ABG pCO2 20.3 mmHg (35-45) L 01/23/21 20:07 ABG pO2 72.5 mmHg (80.0-1 00.0) L 01/23/21 20:07 ABG HCO3 14.5 mmol/L (22-2 6) L 01/23/21 20:07 ABG O2 Saturation 96.3 01/23/21 20:07 ABG Base Excess -7.7 mmol/L (-2.0 -2.0) L 01/23/21 20:07 [place] Test Pos 01/23/21 20:07 A-a O2 Gradient 6.6 mmHg (5-10) 01/23/21 20:07 Hematocrit 30.4 % (42-52) L 01/23/21 20:07 Hgb O2 Saturation 94.5 % (95-100) L 01/23/21 20:07 Carboxyhemoglobin 1.2 %THgb (0.4-20 .1) 01/23/21 20:07 Methemoglobin 0.7 % (0.4-1.5) 01/23/21 20:07 Total Hemoglobin 9.9 g/dL (14-18) L 01/23/21 20:07 Sodium 127.0 mmol/L (131 -143) L 01/23/21 20:07 Potassium 4.8 mmol/L (3.5-5 .0) 01/23/21 20:07 Glucose 107.0 mg/dL (70-1 15) 01/23/21 20:07 Ionized Calcium 1.2 mmol/L (1.1-1 .4) 01/23/21 20:07 O2 Delivery Device Ra 01/23/21 20:07 FiO2 21.0 % 01/23/21 20:07 [employer] ID yorna 01/23/21 20:07 Sodium 139 mmol/L (136-1 45) 01/31/21 05:50 Potassium 5.4 mmol/L (3.5-5 .1) H 01/31/21 05:50 Chloride 109 mmol/L (98-10 7) H 01/31/21 05:50 Carbon Dioxide 21 mmol/L (22-29) L 01/31/21 05:50 Anion Gap 14.4 (5-19) 01/31/21 05:50 BUN 51 mg/dL (8-23) H 01/31/21 05:50 Creatinine 1.0 mg/dL (0.7-1. 2) 01/31/21 05:50 GFR Calculation Not Reportable 01/31/21 05:50 Glucose 100 mg/dL (65-115 ) 01/31/21 05:50 Estimat Average Gl ucose 108 01/29/21 07:24 Hemoglobin A1c 5.4 % (4.0-6.0) 01/29/21 07:24 Calculated Osmolal ity 302 mOsm/kg (285- 295) H 01/31/21 05:50 Lactic Acid 2.2 mmol/L (0.5-2 .2) 01/23/21 20:36 Calcium 8.1 mg/dL (8.5-10 .5) L 01/31/21 05:50 Magnesium 1.7 mg/dL (1.7-2. 3) 01/24/21 02:07 Iron 24 ug/dL (59-158) L 01/28/21 08:42 TIBC 291 mcg/dl 01/28/21 08:42 % Saturation 8.2 % (20-50) L 01/28/21 08:42 Unsat Iron Binding 267 ug/dL (112-34 7) 01/28/21 08:42 Ferritin 108 ng/mL (30-400 ) 01/29/21 07:24 Total Bilirubin 1.5 mg/dL (0.15-1 .2) H 01/31/21 05:50 AST 25 U/L (0-40) 01/31/21 05:50 ALT 11 U/L (0-41) 01/31/21 05:50 Alkaline Phosphata se 145 IU/L (40-130) H 01/31/21 05:50 Ammonia 26 umol/L (16-60) 01/23/21 20:36 Creatine Kinase 228 U/L (39-308) 01/29/21 07:24 Troponin T Gen 5 n g/L 128 ng/L (0-15) H* 01/23/21 20:36 Troponin T 120 Min ak chin 112.3 ng/L (0-15) H 01/23/21 22:28 Delta Troponin T -15.7 ABS# (0-10) L 01/23/21 22:28 Troponin T Hi Sens 6Hr 99.26 ng/L (0-15) H 01/24/21 02:07 Troponin T Hi Sens 6Hr Delta -13.04 ng/L (0-12 ) L 01/24/21 02:07 C-Reactive Protein 20.4 mg/L (0.0-4. 9) H 01/31/21 05:50 NT-Pro-B Natriuret Pep 4268 pg/mL (0-450 ) H 01/31/21 05:50 Total Protein 5.5 g/dL (6.6-8.7 ) L 01/31/21 05:50 Albumin 3.5 g/dL (3.5-5.2 ) 01/31/21 05:50 Globulin 2.0 g/dL (1.3-4.6 ) 01/31/21 05:50 Procalcitonin 0.04 ng/mL (0-0.5 ) 01/30/21 05:55 TSH 0.51 uIU/mL (0.27 -4.20) 01/24/21 02:07 Urine Color Yellow (Yellow) 01/28/21 14:25 Urine Appearance Cloudy (CLEAR) 01/28/21 14:25 Urine pH 5 (5-7) 01/28/21 14:25 Ur Specific Gravit y 1.020 (1.005-1.0 30) 01/28/21 14:25 Urine Protein 1+ (Negative) H 01/28/21 14:25 Urine Glucose (UA) Norm (Normal) 01/28/21 14:25 Urine Ketones 1+ (Negative) H 01/28/21 14:25 Urine Blood 2+ (Negative) H 01/28/21 14:25 Urine Nitrate Negative (Negati ve) 01/28/21 14:25 Urine Bilirubin 1+ (Negative) H 01/28/21 14:25 Urine Urobilinogen 1 mg/dL (Negative ) H 01/28/21 14:25 Ur Leukocyte Luci ase 2+ (Negative) H 01/28/21 14:25 Urine RBC 15-25 /hpf (0-2) H 01/28/21 14:25 Urine WBC Too numerous to c nt /hpf (0-5) H 01/28/21 14:25 Ur Eosinophil Smea r 0 (0-0) 01/28/21 14:25 Ur Squamous Epith Cells 0-4 /hpf (0-5) H 01/28/21 14:25 Amorphous Sediment Not Reportable 01/28/21 14:25 Urine Bacteria 2+ /hpf (NONE) H 01/28/21 14:25 Urine Yeast Trace /hpf 01/28/21 14:25 Urine Eosinophils No eosinophils se en 01/28/21 14:25 Ur Random Sodium < 10 mmol/L 01/28/21 14:25 Ur Random Potassiu m 47 mmol/L 01/28/21 14:25 Ur Random Chloride < 10 mmol/L 01/28/21 14:25 Urine Creatinine 149 mg/dL (39-259 ) 01/28/21 14:25 Blood Type O Positive 01/29/21 13:27 Rho(D) Type Positive / 4+ 01/29/21 13:27 Antibody Screen Negative 01/29/21 13:27 Crossmatch See Detail 01/29/21 13:[address] 01/23/21 19:02 IMPRESSION: 1. No acute intracranial abnormality. 2. Multifocal sinusitis including trace air-fluid levels in the left maxillary sinus. 3. 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 Radiation Dose CTDIVOL = (mGy): DLP = 2312.55 (mGy-cm) Abdomen/Pelvis CT 01/26/21 12:34 IMPRESSION: 1. Large RIGHT lateral abdominal wall hematoma centered between the oblique muscles measures 9.6 x 11.0 x 7.3 cm. Hematoma extends into the RIGHT iliacus muscle into the pelvis. 2. Small bilateral pleural effusions and soft tissue anasarca. 3. Mildly contracted gallbladder with calcified wall. 4. Bilateral renal cysts. Notified Juan Montoya MD at 01/26/2021 2:38 PM. Renal Ultrasound 01/26/21 15:01 IMPRESSION: 1. No hydronephrosis. 2. Large known LEFT renal cyst. 3. Wang catheter present in a thick walled urinary bladder with diffuse low level echoes which may be related to stasis or infection. Chest CT 01/28/21 11:48 IMPRESSION: 1. Patchy bilateral pulmonary ground-glass opacities are nonspecific and can be seen with pneumonia and/or pulmonary edema. 2. There are bilateral pleural effusions with underlying compressive atelectasis or infiltrate. 3. Cardiomegaly. In combination with bilateral pleural effusions, findings are consistent with congestive heart failure. Radiation Dose CTDIVOL = (mGy): DLP = 848.32 (mGy-cm) Chest X-Ray 01/31/21 06:00 IMPRESSION: 1. Mild cardiomegaly. 2. No acute disease. Echocardiogram: CONCLUSIONS 1. This is a limited and technically difficult echocardiogram. 2. Normal left ventricular cavity size. Moderately decreased left ventricular systolic function. Left ventricular ejection fraction is estimated at 40%. Moderate global hypokinesis. Abnormal septal motion consistent with conduction abnormality. 3. When compared to previous echocardiogram dated 10/17/2020, there may not have been any significant change. Vitals: Last Vital Signs Temp 98.6 F 01/31/21 08:00 Pulse 61 01/31/21 09:44 Resp 20 H 01/31/21 09:44 BP 140/73 01/31/21 08:00 Pulse Ox 96 01/31/21 09:44 Discharge Plan Discharge Patient Disposition: Home Condition: Stable Prescriptions: New ferrous gluconate 324 mg (37.5 mg iron) Tablet 324 mg PO BIDWM 30 Days Qty: 30 RF: 0 sodium bicarbonate 650 mg Tablet 650 mg PO DAILY 30 Days Qty: 30 RF: 0 benzonatate 100 mg Capsule 100 mg PO TID PRN (Reason: Cough) Qty: 10 RF: 0 zinc gluconate 50 mg Tablet 50 mg PO DAILY 14 Days Qty: 14 RF: 0 Spiriva with HandiHaler 18 mcg Capsule, W/Inhalation Device 18 mcg inhalation DAILY.RESPIRATORY 14 Days Qty: 14 RF: 0 dexamethasone 6 mg tablet 3 mg PO DAILY 7 Days Qty: 4 RF: 0 Continued lutein 40 mg capsule 40 mg PO DAILY RF: 0 potassium chloride 20 mEq tablet,ER particles/crystals 20 meq PO BID Qty: 60 RF: 3 lubricants Gel 1 ea topical ONCE Qty: 1 RF: 0 ascorbic acid (vitamin C) 1,000 mg tablet 1 g PO BID RF: 0 nitroglycerin [Nitrostat] 0.4 mg tablet, sublingual 0.4 mg SUBLINGUAL Q5M PRN (Reason: Chest Pain) RF: 0 cholecalciferol (vitamin D3) 400 unit capsule 400 unit PO DAILY RF: 0 lycopene 10 mg capsule 10 mg PO DAILY RF: 0 levothyroxine 137 mcg capsule 150 mcg PO DAILY RF: 0 omega-3 fatty acids [Fish Oil Concentrate] 1,000 mg capsule 1,000 mg PO DAILY RF: 0 famotidine [Pepcid] 20 mg tablet 20 mg PO BID RF: 0 loratadine [Claritin] 10 mg tablet 10 mg PO BEDTIME RF: 0 carvedilol 3.125 mg Tablet 3.125 mg PO BID Qty: 60 RF: 0 furosemide 40 mg tablet 40 mg PO BID RF: 0 tamsulosin 0.4 mg Capsule 0.4 mg PO BEDTIME Qty: 30 RF: 0 atorvastatin 40 mg tablet 40 mg PO DAILY RF: 0 methenamine hippurate 1 gram tablet 1 g PO BID RF: 0 Held clopidogrel 75 mg tablet 75 mg PO DAILY RF: 0 Hold Instructions: Resume on 01/21/21. Discontinued spironolactone 25 mg tablet 25 mg PO DAILY RF: 0 Pradaxa 75 mg capsule 75 mg PO BID RF: 0 Hold Instructions: Resume on 01/21/21. Discharge Orders: Discharge Order (Routine); Ordered 01/31/21 Ordered By: Deyvi Gaytan Referrals: [facility] [Outside] Jacquie Coto NP [Primary Care Provider] - 4-7 days Irma Granados MD [Physician] - 7-10 days Discharge Diet: Cardiac and Soft Mechanical Discharge Activity: Resume usual activity and Increase activity as tolerated Patient Instructions: Opioid Safety Activity Restrictions/Additional Instructions: Advised to take inhalation treatment with Spiriva daily. Advised to continue working with incentive spirometry and flutter valve while at home. Advised to continue taking dexamethasone 3 mg for next 5 days. Advised to follow-up with his primary care provider and his Financial Consultant within the next 4 to 7 days. Can take his COVID-19 vaccination in 3 months. Advised to continue following social distancing and isolation protocol for next 10 days. Advised to come back to the ER if fever of more than 101 Fahrenheit, more difficulty breathing than usual or requiring higher oxygen supplementation. Repeat CBC, CMP in 1 week. Pradaxa has been stopped. Restart Plavix after rechecking CBC. Discharge Attestations Time Spent in Discharge Care*: greater than 30 min Specific Discharge Activities: educating and/or supporting family/caregiver, discussing with pcp/other providers, discussing with case supervisor/social workers/dc planners, documenting/other paperwork and evaluating patient/reviewing data Status at Discharge: Cognitive status at discharge: moderately impaired cognition , Behavioral status at discharge: cooperative , Functional status at discharge: other assisted ambulation Overall status at discharge: patient is back to baseline Quality Metrics Clinical Quality Measures During this hospital stay, did patient experience: None Coding Level of Care Code Acute Chg FW DC note Diagnoses Acute alteration in mental status R41.82 Urinary tract infection N39.0 COVID-19 U07.1 Fall W19.XXXA Hematoma T14.8XXA Anemia D64.9 Acute kidney injury N17.9 Pneumonia J18.9 Arrhythmia I47.1 Arrhythmia type: supraventricular tachycardia S/P TAVR (transcatheter aortic valve replacement) Z95.2 Chronic anticoagulation Z79.01 Non-ST elevated myocardial infarction (non-STEMI) I21.4
[2021-01-31] MEDS: dexamethasone 4 mg/mL INJ 3 MG IVP (12:05)
--- NOTE | 2021-01-31 13:20 | PC.NURSE ---
Discharge Note Patient discharged to home via wheelchair to private vehicle accompanied by the and daughter. Discharge instructions reviewed with patient and/or sales donor recruitment representative. Mobile pharmacy medications and/or prescriptions provided. Belongings/home medications returned.
== END 2021-01-31 14:19 | disposition home or self-care (01) | DRG 177 ==
LOC: ER 22:34 → MS 2A 23:22
PROVIDERS: Internal Medicine; Nurse Practitioner Family; Admitting Provider Internal Medicine; Emergency Provider Emergency Medicine; PCP Nurse Practitioner Family; Visit Provider Student in an Organized Health Care Education/Training Program
DX: U07.1 COVID-19 (principal); J12.82 Pneumonia due to coronavirus disease 2019; I50.21 Acute systolic (congestive) heart failure; I21.4 Non-ST elevation (NSTEMI) myocardial infarction; G93.41 Metabolic encephalopathy; I13.0 Hypertensive heart and chronic kidney disease with heart failure and stage 1 through stage 4 chronic kidney disease, or unspecified chronic kidney disease; N39.0 Urinary tract infection, site not specified; N17.9 Acute kidney failure, unspecified; D62 Acute posthemorrhagic anemia; I47.1 Supraventricular tachycardia; E87.1 Hypo-osmolality and hyponatremia; N18.9 Chronic kidney disease, unspecified; N40.0 Benign prostatic hyperplasia without lower urinary tract symptoms; E78.5 Hyperlipidemia, unspecified; S30.1XXA Contusion of abdominal wall, initial encounter; W19.XXXA Unspecified fall, initial encounter; Y93.9 Activity, unspecified; Y92.003 Bedroom of unspecified non-institutional (private) residence as the place of occurrence of the external cause; R29.6 Repeated falls; E03.9 Hypothyroidism, unspecified; I49.5 Sick sinus syndrome; I25.5 Ischemic cardiomyopathy; E86.0 Dehydration; Z66 Do not resuscitate; Z79.01 Long term (current) use of anticoagulants; Z95.2 Presence of prosthetic heart valve; Z95.4 Presence of other heart-valve replacement; Z87.440 Personal history of urinary (tract) infections; Z95.5 Presence of coronary angioplasty implant and graft; Z95.0 Presence of cardiac pacemaker; Z95.1 Presence of aortocoronary bypass graft; Z82.49 Family history of ischemic heart disease and other diseases of the circulatory system; Z82.3 Family history of stroke; Z88.8 Allergy status to other drugs, medicaments and biological substances; Z79.890 Hormone replacement therapy; Z98.49 Cataract extraction status, unspecified eye
CPT/HCPCS: 36415; 36430; 36600; 51702; 70450; 71045; 71250; 74176; 76770; 80048; 80051; 80053; 81001; 82140; 82330; 82436; 82550; 82570; 82728; 82805; 83036; 83540; 83550; 83605; 83735; 83880; 84133; 84145; 84300; 84443; 84484; 85014; 85018; 85025; 85378; 85610; 85651; 85730; 85999; 86140; 86403; 86850; 86900; 86920; 87040; 87086; 87205; 87635; 87641; 92610; 93005; 93308; 94640; 94664; 96365; 96372; 96375; 97161; 97530; 99285; J0696; J0743; J1100; J1644; J1650; J1815; J1940; J3370; J3535; J7030; J7040; J7050; J8540; P9016; P9040; Q0144

== ENCOUNTER → 2021-02-06 09:56 | Outpatient (BNVA) | payer MEDICARE, BC, SELFPAY | PROVIDERS: PCP Nurse Practitioner Family; Visit Provider Nurse Practitioner Family | DX: Z09 Encounter for follow-up examination after completed treatment for conditions other than malignant neoplasm (principal); D64.9 Anemia, unspecified; I48.19 Other persistent atrial fibrillation; I25.10 Atherosclerotic heart disease of native coronary artery without angina pectoris | CPT/HCPCS: 80048; 85025 ==

== ENCOUNTER 2021-02-07 10:39 | Emergency (ER) | payer MEDICARE, BC, SELFPAY ==
[2021-02-07 11:11] VITALS: BP 140/72; PULSE 61; RESP 18; TEMP 36.7; O2SAT 99; BMI 25.2
[2021-02-07 11:22] VITALS: BP 140/72; PULSE 60; RESP 20; O2SAT 98
--- NOTE | 2021-02-07 11:24 | W.ED.RECABL ---
HPI - Recheck/Abnormal Lab/Rx General: Chief Complaint: Recheck/Abnormal Lab/Rx Stated Complaint: White blood count is high Time Seen by Provider: 02/07/21 11:05 History of Present Illness: HPI narrative: 85-year-old male presents emergency room instruction of the nurse practitioner his also saw the Dr. Young's office and sent to him. He states he is feeling fine he was directed here because of abnormal labs. He was recently hospitalized and discharged on the was concerned of urinary retention he has an indwelling Wang leg bag he had urinary cultures that were negative. He did have Covid at high and was discharged home with dexamethasone 6 mg daily to finish yesterday. He denies any chest pain abdominal pain difficulty breathing dysuria urgency or frequency. He states his breathing is been good since he got home when he has been feeling fine. Main reason he was sent to us for the elevated white count. I called the Dr. Young's office, Dr. Young was not aware he been sent here. MD complaint: abnormal lab Initial visit (ago): day(s) Symptoms since prior visit: no new symptoms Context: called for abnormal lab result Associated symptoms: none Review of Systems Const: Denies: fever(s), chills, body aches, change in appetite, fatigue or malaise ENMT: Denies: throat pain, ear or mastoid pain, nasal discharge or nasal congestion Card: Denies: chest pain, edema, dyspnea on exertion or orthopnea Resp: Denies: dyspnea, productive cough or non-productive cough GI: Denies: abdominal pain, nausea, vomiting, hematemesis, coffee ground emesis, diarrhea, constipation, bloating, hematochezia or melena : Denies: flank pain, dysuria, urinary frequency or urinary urgency Skin/Breast: Denies: rash or pruritus PFSH ED PFSH: Medical History Acute retention of urine Acute urinary retention Anemia Anemia Anticoagulation adequate with anticoagulant therapy Direct thrombin inhibitor Pradaxa Aortic stenosis Arrhythmia ASHD (arteriosclerotic heart disease) Atrial fibrillation Controlled Atrial fibrillation BPH (benign prostatic hyperplasia) Carotid stenosis, bilateral CHF (congestive heart failure) Chronic anticoagulation Chronic anticoagulation CKD (chronic kidney disease) Clot retention of urine Dyslipidemia History of myelodysplastic syndrome HTN (hypertension) Hyponatremia Hypothyroidism Ischemic cardiomyopathy Mitral regurgitation Phimosis Pulmonary HTN SSS (sick sinus syndrome) Urinary retention Urinary tract infection Surgical History H/O esophagogastroduodenoscopy (10/20/20) History of coronary artery stent placement S/P cataract extraction S/P hernia repair S/P ICD (internal cardiac defibrillator) procedure S/P TAVR (transcatheter aortic valve replacement) Status post colonoscopy (10/20/20) diverticulosis, polyps Family History Mother , at age 82 CAD (coronary artery disease) Father , at age 69 Stroke Social History Alcohol intake: never Adopted: No Caregiver/support person: No Lives independently: No Household members: spouse Marital status: Current occupational status: retired History of recent travel: No Physical Exam Const: COMMON NORMALS: no acute distress GENERAL APPEARANCE: cooperative and comfortable ORIENTATION/CONSCIOUSNESS: Yes awake, Yes oriented to person, Yes oriented to place and Yes oriented to time HENMT: COMMON NORMALS: normocephalic, atraumatic and hearing grossly normal bilaterally HEAD & SCALP: normocephalic and atraumatic Neck/C-Spine: COMMON NORMALS: no JVD Resp: COMMON NORMALS: normal respiratory effort, No retractions, No use of accessory muscles and clear to auscultation bilaterally AUSCULTATION: clear to auscultation bilaterally Cardio: COMMON NORMALS: no JVD, regular rate, regular rhythm and No murmurs present (Cardio) RATE: regular rate RHYTHM: regular rhythm GI: COMMON NORMALS: Soft to palpation and No hepatosplenomegaly present AUSCULTATION: Yes normoactive bowel sounds PALPATION: Yes Soft to palpation, No Tenderness to palpation present (GI), No Guarding due to palpation present (GI) and Yes No hepatosplenomegaly present Extremity: COMMON NORMALS: normal to inspection, capillary refill normal, no clubbing, cyanosis or edema, no calf tenderness and no pedal edema Neuro: SENSORIUM/ORIENTATION: Yes oriented to person, Yes oriented to place and Yes oriented to time Skin: COMMON NORMALS: no rashes or lesions noted GENERAL SKIN EXAM: no rashes or lesions noted Course Vital Signs: Vital signs: Vital Signs Temperature 98.1 F 02/07/21 11:11 Pulse Rate 60 02/07/21 12:42 Respiratory Rate 18 02/07/21 12:42 Blood Pressure 124/70 02/07/21 12:42 Pulse Oximetry 98 02/07/21 12:42 MDM - Recheck/Abnormal Lab/Rx MDM Narrative: Medical decision making narrative: Negative leukocytosis is secondary to the steroids he has been taking otherwise rest of his evaluation on exam is negative. He did have some white blood cells in his urine but he has a catheter in place recently had 2 urine cultures which were negative we will hold off on putting him on antibiotics for now until we have culture results. Lab Data: Labs: Lab Results 02/07/21 Range/Units 12:06 Urine Color Yellow (Yellow) Urine Appearance Clear (CLEAR) Urine pH 5 (5-7) Ur Specific Gravit y 1.010 (1.005-1.030) Urine Protein Neg (Negative) Urine Glucose (UA) Norm (Normal) Urine Ketones Negative (Negative) Urine Blood Neg (Negative) Urine Nitrate Negative (Negative) Urine Bilirubin Neg (Negative) Urine Urobilinogen Norm (Negative) mg/dL Ur Leukocyte Luci ase 2+ H (Negative) Urine RBC None (0-2) /hpf Urine WBC 25-40 H (0-5) /hpf Ur Squamous Epith Cells 0-4 H (0-5) /hpf Amorphous Sediment Not Reportable Urine Bacteria 2+ H (NONE) /hpf Urine Yeast Trace /hpf Discharge Plan Discharge Patient Disposition: Home Clinical Impression: Leukocytosis, Medication side effects, Indwelling Wang catheter present Condition: Stable Prescriptions: No Action lutein 40 mg capsule 40 mg PO DAILY@0700 RF: 0 ascorbic acid (vitamin C) 1,000 mg tablet 1 g PO BID@0700,1900 RF: 0 nitroglycerin [Nitrostat] 0.4 mg tablet, sublingual 0.4 mg SUBLINGUAL Q5M PRN (Reason: Chest Pain) RF: 0 cholecalciferol (vitamin D3) 400 unit capsule 400 unit PO DAILY@0700 RF: 0 lycopene 10 mg capsule 10 mg PO DAILY@0700 RF: 0 levothyroxine 137 mcg capsule 150 mcg PO DAILY@0700 RF: 0 omega-3 fatty acids [Fish Oil Concentrate] 1,000 mg capsule 1,000 mg PO DAILY@0700 RF: 0 famotidine [Pepcid] 20 mg tablet 20 mg PO BID@07,1900 RF: 0 loratadine [Claritin] 10 mg tablet 10 mg PO BEDTIME@1900 RF: 0 lubricants Gel 1 ea TOPICAL DAILY PRN (Reason: UNKNOWN) RF: 0 dexamethasone 6 mg tablet 3 mg PO DAILY@0700 RF: 0 carvedilol 3.125 mg tablet 3.125 mg PO BID@699,1899 RF: 0 potassium chloride 20 mEq tablet,ER particles/crystals 20 meq PO BID@07,1899 RF: 0 tamsulosin 0.4 mg capsule 0.4 mg PO BEDTIME@190 RF: 0 sodium bicarbonate 650 mg tablet 650 mg PO DAILY@07 RF: 0 zinc gluconate 50 mg tablet 50 mg PO DAILY@07 RF: 0 Spiriva with HandiHaler 18 mcg capsule, w/inhalation device 18 mcg inhalation DAILY@07 RF: 0 ferrous gluconate 324 mg (37.5 mg iron) tablet 324 mg PO BID@699,1899 RF: 0 furosemide 40 mg tablet 40 mg PO BID@699,1899 RF: 0 atorvastatin 40 mg tablet 40 mg PO DAILY@190 RF: 0 clopidogrel 75 mg tablet 75 mg PO DAILY RF: 0 Hold Instructions: Resume on 01/21/21. methenamine hippurate 1 gram tablet 1 g PO BID@0700,1900 RF: 0 benzonatate 100 mg Capsule 100 mg PO TID PRN (Reason: Cough) Qty: 10 RF: 0 Discharge Orders: Discharge ED (Routine); Ordered 02/07/21 Ordered By: Jacek Turner Referrals: Jacquie Coto, SIMONE [Primary Care Provider] - Patient Instructions: Opioid Safety Activity Restrictions/Additional Instructions: Elevated white count most likely was due to the steroids. Complete steroid as previously prescribed. A urine culture was done today we will contact you if there is any significant growth. Follow-up with Dr. Young and your other physicians as previously planned. Return if you have further problems. Coding Level of Care Code ED Scrap Charger for Rod Burnett
--- NOTE | 2021-02-07 11:58 | XRR_ITS ---
PROCEDURE INFORMATION: Exam: XR Chest Exam date and time: 02/07/2021 11:58 AM Age: 85 years old Clinical indication: Cough and dyspnea; Additional info: Dyspnea/cough TECHNIQUE: Imaging protocol: XR of the chest. Views: 1 view. Total images: 1 COMPARISON: CR (CHEST, ) 01/31/2021 6:12 AM FINDINGS: Tubes, catheters and devices: AICD projects in satisfactory location. Lungs: Nonspecific left lung base opacity favors atelectasis or pneumonia. Trace atelectasis or scar noted in the right mid lung. Pleural spaces: Unremarkable. No pleural effusion. No pneumothorax. Heart/Mediastinum: Heart size is stable when compared to the prior exam. Bones/joints: Osseous structures are unchanged from the prior exam. Other findings: Stable postsurgical changes. XR/XR chest 1V portable [id number] IMPRESSION: 1. Nonspecific left lung base opacity favors atelectasis or pneumonia. 2. Trace atelectasis or scar noted in the right mid lung.
[2021-02-07 12:12] VITALS: BP 131/81; PULSE 64; RESP 18; O2SAT 100
[2021-02-07 12:23] LABS: Add Urine Microscopic? YES; Bilirubin Urine Neg (Negative); Blood Urine Neg (Negative); Glucose Urine UA Norm (Normal); Ketones Urine Negative (Negative); Leukocyte Esterase Urine 2+ (Negative); Nitrate Urine Negative (Negative); Protein Urine Neg (Negative); Urine Appearance Clear (CLEAR); Urine Color Yellow (Yellow); Urobilinogen Urine Norm (Negative); pH Urine 5 (5-7)
[2021-02-07 12:24] LABS: Add Urine Culture? Yes; Squamous Epithelial Cell Urine 0-4 /hpf (0-5)
[2021-02-07 12:25] LABS: Bacteria Urine 2+ /hpf; WBC Urine 25-40 /hpf (0-5)
[2021-02-07 12:42] VITALS: BP 124/70; PULSE 60; RESP 18; O2SAT 98
== END 2021-02-07 12:38 | disposition home or self-care (01) ==
PROVIDERS: Emergency Provider Family Medicine; PCP Nurse Practitioner Family
DX: D72.829 Elevated white blood cell count, unspecified (principal); T50.905A Adverse effect of unspecified drugs, medicaments and biological substances, initial encounter; Z79.02 Long term (current) use of antithrombotics/antiplatelets; I11.0 Hypertensive heart disease with heart failure; I50.9 Heart failure, unspecified; E78.5 Hyperlipidemia, unspecified
CPT/HCPCS: 71045; 81001; 87086; 99282

== ENCOUNTER 2021-02-17 13:39 | Outpatient (CLI) | payer MEDICARE, BC, SELFPAY ==
[2021-02-17 13:58] LABS: Basophils % 0.3 %; Eosinophils # 0.7 10^3/uL (0.0-0.8); Eosinophils % 12.6 %; Hematocrit 36.3 % (42.0-52.0); Hemoglobin 10.7 g/dL (11.7-16.6); Lymphocytes # 1.1 10^3/uL (0.8-4.8); Lymphocytes % 18.3 %; Mean Corpuscular HGB Conc 29.5 g/dL (30.0-36.0); Mean Corpuscular Hemoglobin 27.1 pg (28.0-34.0); Mean Corpuscular Volume 91.9 fl (80-94); Mean Platelet Volume 13.2 fL (7.4-10.4); Monocytes # 0.5 10^3/uL (0.2-0.9); Monocytes % 9.2 %; Neutrophils # 3.39 10^3/uL (1.8-7.7); Neutrophils % 59.3 %; Nucleated Red Blood Cells % 0 %; Platelet Count 109 10^3/cmm (130-400); Red Blood Count 3.95 10^6/uL (4.1-5.3); Red Cell Distribution Width 24.2 % (12.1-15.1); White Blood Count 5.7 10^3/uL (4.0-10.0)
[2021-02-17 16:34] LABS: Slide Review Slide Review Perform
== END 2021-02-17 13:40 | disposition home or self-care (01) ==
LOC: LAB 13:43
PROVIDERS: PCP Nurse Practitioner Family; Visit Provider Nurse Practitioner Family
DX: T14.8XXA Other injury of unspecified body region, initial encounter (principal); X58.XXXA Exposure to other specified factors, initial encounter
CPT/HCPCS: 85025

== ENCOUNTER → 2021-03-16 10:03 | Outpatient (BNVA) | payer MEDICARE, BC, SELFPAY | PROVIDERS: PCP Nurse Practitioner Family; Visit Provider Internal Medicine Cardiovascular Disease | DX: I50.43 Acute on chronic combined systolic (congestive) and diastolic (congestive) heart failure (principal); I25.10 Atherosclerotic heart disease of native coronary artery without angina pectoris | CPT/HCPCS: 80048; 83735; 83880; 85025 ==

== ENCOUNTER → 2021-04-03 10:33 | Outpatient (BNVA) | payer MEDICARE, BC, SELFPAY | PROVIDERS: PCP Nurse Practitioner Family; Visit Provider Internal Medicine Cardiovascular Disease | DX: I50.43 Acute on chronic combined systolic (congestive) and diastolic (congestive) heart failure (principal); I48.91 Unspecified atrial fibrillation; I34.0 Nonrheumatic mitral (valve) insufficiency; I25.10 Atherosclerotic heart disease of native coronary artery without angina pectoris | CPT/HCPCS: 80048; 83735; 83880 ==

== ENCOUNTER 2021-06-08 12:05 | Emergency (ER) | payer MEDICARE, BC, SELFPAY ==
--- NOTE | 2021-06-08 12:22 | W.ED.MALEGU ---
HPI - Male Genitourinary General: Chief complaint: Urogenital-Male Stated complaint: BLOOD IN CATH Time Seen by Provider: 06/08/21 12:07 History of Present Illness: HPI Narrative: 85-year-old male with indwelling Wang presents by EMS from [facility] with blood in the Wang catheter. Patient has had difficulty with urinary retention secondary to BPH. Earlier this year was hospitalized in January for retained clot in the bladder. Ultimately discharged home previous urology notes reviewed. Onset (ago): hour(s) Duration: constant Severity: moderate Exacerbating factors: none Associated symptoms: Reports hematuria and urinary retention; Deny discharge, dysuria, fevers/chills, nausea, rash, swelling, urinary incontinence, mass or vomiting Review of Systems Const: Denies: fever(s), chills, body aches, change in appetite, fatigue or malaise ENMT: Denies: throat pain, ear or mastoid pain, nasal discharge or nasal congestion Card: Denies: chest pain, edema, dyspnea on exertion or orthopnea Resp: Denies: dyspnea, productive cough or non-productive cough GI: Denies: nausea or vomiting : Reports: hematuria; Denies: dysuria or urinary incontinence PFSH ED PFSH: Medical History Acute retention of urine Acute urinary retention Anemia Anemia Anticoagulation adequate with anticoagulant therapy Direct thrombin inhibitor Pradaxa Aortic stenosis Arrhythmia ASHD (arteriosclerotic heart disease) Atrial fibrillation Controlled Atrial fibrillation BPH (benign prostatic hyperplasia) Carotid stenosis, bilateral CHF (congestive heart failure) Chronic anticoagulation Chronic anticoagulation CKD (chronic kidney disease) Clot retention of urine Dyslipidemia History of myelodysplastic syndrome HTN (hypertension) Hyponatremia Hypothyroidism Ischemic cardiomyopathy Mitral regurgitation Phimosis Pulmonary HTN SSS (sick sinus syndrome) Urinary retention Urinary tract infection Surgical History H/O esophagogastroduodenoscopy (10/20/20) History of coronary artery stent placement S/P cataract extraction S/P hernia repair S/P ICD (internal cardiac defibrillator) procedure S/P TAVR (transcatheter aortic valve replacement) Status post colonoscopy (10/20/20) diverticulosis, polyps Family History Mother , at age 82 CAD (coronary artery disease) Father , at age 69 Stroke Social History Alcohol intake: never Adopted: No Caregiver/support person: No Lives independently: No Household members: spouse Marital status: Current occupational status: retired History of recent travel: No Course Vital Signs: Vital signs: Vital Signs Temperature 99.8 F H 06/08/21 12:48 Pulse Rate 67 06/08/21 12:48 Respiratory Rate 27 H 06/08/21 12:48 Blood Pressure 135/75 06/08/21 12:48 Pulse Oximetry 95 06/08/21 12:48 MDM - Male MDM Narrative: Medical decision making narrative: Discharge patient home on antibiotic. We did flush his catheter aggressively until we got very lightly tinged fluid back. He is feeling much better he can flush it at home he states he normally does it once a day asked him to do it several times a day for the next few days to prevent any buildup if he notes increased blood in the catheter he should have multiple times until it comes back as only some very slightly tinged is that does not work or is not able to get it to flush return to the emergency room Lab Data: Labs: Lab Results 06/08/21 06/08/21 06/08/21 12:25 12:25 12:25 WBC 13.6 10^3/uL H 10 ^3/uL (4.0-10.0) RBC 5.09 10^6/uL 10^6 /uL (4.1-5.3) Hgb 14.4 g/dL g/dL (11.7-16.6) Hct 44.3 % % (42.0-52.0) MCV 87.0 fl fl (80-94) MCH 28.3 pg pg (28.0-34.0) MCHC 32.5 g/dL g/dL (30.0-36.0) RDW 15.8 % H % (12.1-15.1) Plt Count 162 10^3/cmm 10^3 /cmm (130-400) MPV 12.6 fL H fL (7.4-10.4) Neut % (Auto) 76.5 % % Lymph % (Auto) 7.6 % % [place] % (Auto) 14.8 % % Eos % (Auto) 0.5 % % Baso % (Auto) 0.1 % % Neut # (Auto) 10.39 10^3/uL H 1 0^3/uL (1.8-7.7) Lymph # (Auto) 1.0 10^3/uL 10^3/ uL (0.8-4.8) Blackford # (Auto) 2.0 10^3/uL H 10^ 3/uL (0.2-0.9) Eos # (Auto) 0.1 10^3/uL 10^3/ uL (0.0-0.8) Baso # (Auto) 0.0 10^3/uL 10^3/ uL (0.0-0.1) Nucleated RBC % (a uto) 0 % % Nucleated RBCs # 0.0 /100WBC /100W BC Sodium 132 mmol/L L mmol /L (136-145) Potassium 4.1 mmol/L mmol/L (3.5-5.1) Chloride 98 mmol/L mmol/L (98-107) Carbon Dioxide 18 mmol/L L mmol/ L (22-29) Anion Gap 20.1 H (5-19) BUN 29 mg/dL H mg/dL (8-23) Creatinine 1.3 mg/dL H mg/dL (0.7-1.2) GFR Calculation Not Reportable Glucose 84 mg/dL mg/dL (65-115) Calculated Osmolal ity 279 mOsm/kg L mOs m/kg (285-295) Calcium 8.0 mg/dL L mg/dL (8.5-10.5) Urine Color Lorie (Yellow) Urine Appearance Cloudy (CLEAR) Urine pH 5 (5-7) Ur Specific Gravit y 1.020 (1.005-1.030) Urine Protein 1+ H (Negative) Urine Glucose (UA) Norm (Normal) Urine Ketones 1+ H (Negative) Urine Blood 3+ H (Negative) Urine Nitrate Negative (Negative) Urine Bilirubin Neg (Negative) Urine Urobilinogen Norm mg/dL mg/dL (Negative) Ur Leukocyte Luci ase 2+ H (Negative) Urine RBC 50-80 /hpf H /hpf (0-2) Urine WBC 25-40 /hpf H /hpf (0-5) Ur Squamous Epith Cells 5-10 /hpf H /hpf (0-5) Amorphous Sediment Not Reportable Urine Bacteria 2+ /hpf H /hpf (NONE) Discharge Plan Discharge Patient Disposition: Home Clinical Impression: Cystitis Condition: Stable Prescriptions: New cefdinir 300 mg capsule 300 mg PO BID 10 Days Qty: 20 RF: 0 No Action lutein 40 mg capsule 25 mg PO DAILY@0700 RF: 0 ascorbic acid (vitamin C) 1,000 mg tablet 1 g PO BID@0700,1900 RF: 0 nitroglycerin [Nitrostat] 0.4 mg tablet, sublingual 0.4 mg SUBLINGUAL Q5M PRN (Reason: Chest Pain) RF: 0 cholecalciferol (vitamin D3) 400 unit capsule 400 unit PO DAILY@0700 RF: 0 lycopene 10 mg capsule 10 mg PO DAILY@0700 RF: 0 levothyroxine 137 mcg capsule 150 mcg PO DAILY@0700 RF: 0 omega-3 fatty acids [Fish Oil Concentrate] 1,000 mg capsule 1,000 mg PO DAILY@0700 RF: 0 famotidine [Pepcid] 20 mg tablet 20 mg PO BID@0700,1900 RF: 0 loratadine [Claritin] 10 mg tablet 10 mg PO BEDTIME@1900 RF: 0 potassium chloride 20 mEq tablet,ER particles/crystals 20 meq PO .COMPLEX Qty: 90 RF: 5 furosemide 40 mg tablet 80 mg PO BID RF: 0 spironolactone 25 mg tablet 25 mg PO DAILY Qty: 90 RF: 3 lubricants Gel 1 ea TOPICAL DAILY PRN (Reason: UNKNOWN) RF: 0 carvedilol 3.125 mg tablet 3.125 mg PO BID@0700,1900 RF: 0 Hold Instructions: Doctor's Order tamsulosin 0.4 mg capsule 0.4 mg PO BEDTIME@1900 RF: 0 atorvastatin 40 mg tablet 40 mg PO DAILY@1900 RF: 0 methenamine hippurate 1 gram tablet 1 g PO BID@0700,1900 RF: 0 Discharge Orders: Discharge ED (Routine); Ordered 06/12/21 Ordered By: Jacek Turner Referrals: Jacquie Coto, [facility] [Primary Care Provider] - Discharge Diet: Usual diet Discharge Activity: Resume usual activity Patient Instructions: Opioid Safety Coding Level of Care Code ED Cobol Developer for Baldomerog Hortencia
[2021-06-08 12:33] VITALS: BP 135/75; PULSE 67; RESP 27; TEMP 37.7; O2SAT 95; BMI 25.4
[2021-06-08 12:48] VITALS: BP 135/75; PULSE 67; RESP 27; TEMP 37.7; O2SAT 95
[2021-06-08 12:48] LABS: Bilirubin Urine Neg (Negative); Blood Urine 3+ (Negative); Glucose Urine UA Norm (Normal); Ketones Urine 1+ (Negative); Nitrate Urine Negative (Negative); Protein Urine 1+ (Negative); Urine Appearance Cloudy (CLEAR); Urine Color Amber (Yellow); pH Urine 5 (5-7)
[2021-06-08 12:49] LABS: Add Urine Microscopic? YES; Bacteria Urine 2+ /hpf; Leukocyte Esterase Urine 2+ (Negative); Urobilinogen Urine Norm (Negative)
[2021-06-08 12:50] LABS: Add Urine Culture? Yes; RBC Urine 50-80 /hpf (0-2); WBC Urine 25-40 /hpf (0-5)
[2021-06-08 13:08] LABS: Basophils % 0.1 %; Eosinophils # 0.1 10^3/uL (0.0-0.8); Eosinophils % 0.5 %; Hematocrit 44.3 % (42.0-52.0); Hemoglobin 14.4 g/dL (11.7-16.6); Lymphocytes % 7.6 %; Mean Corpuscular HGB Conc 32.5 g/dL (30.0-36.0); Mean Corpuscular Hemoglobin 28.3 pg (28.0-34.0); Mean Platelet Volume 12.6 fL (7.4-10.4); Monocytes % 14.8 %; Neutrophils # 10.39 10^3/uL (1.8-7.7); Neutrophils % 76.5 %; Nucleated Red Blood Cells % 0 %; Platelet Count 162 10^3/cmm (130-400); Red Blood Count 5.09 10^6/uL (4.1-5.3); Red Cell Distribution Width 15.8 % (12.1-15.1); White Blood Count 13.6 10^3/uL (4.0-10.0)
[2021-06-08 13:17] LABS: Anion Gap 20.1 (5-19); Blood Urea Nitrogen 29 mg/dL (8-23); Carbon Dioxide 18 mmol/L (22-29); Chloride 98 mmol/L (98-107); Glucose 84 mg/dL (65-115); Osmolality Calculated 279 mOsm/kg (285-295); Potassium 4.1 mmol/L (3.5-5.1); Sodium 132 mmol/L (136-145)
== END 2021-06-08 14:29 | disposition home or self-care (01) ==
PROVIDERS: Emergency Provider Family Medicine; PCP Nurse Practitioner Family
DX: N30.90 Cystitis, unspecified without hematuria (principal); I11.0 Hypertensive heart disease with heart failure; I50.9 Heart failure, unspecified; E78.5 Hyperlipidemia, unspecified; Z87.440 Personal history of urinary (tract) infections
CPT/HCPCS: 80048; 81001; 85025; 87077; 87086; 87186; 99283; 99291

== ENCOUNTER → 2021-10-18 10:41 | Outpatient (BNVA) | payer MEDICARE, BC, SELFPAY | PROVIDERS: PCP Nurse Practitioner Family; Visit Provider Internal Medicine Cardiovascular Disease | DX: I48.19 Other persistent atrial fibrillation (principal); I13.0 Hypertensive heart and chronic kidney disease with heart failure and stage 1 through stage 4 chronic kidney disease, or unspecified chronic kidney disease; I50.43 Acute on chronic combined systolic (congestive) and diastolic (congestive) heart failure; N18.9 Chronic kidney disease, unspecified; Z95.810 Presence of automatic (implantable) cardiac defibrillator | CPT/HCPCS: 99214 ==

== ENCOUNTER → 2021-11-30 14:35 | Outpatient (BNVA) | payer MEDICARE, BC, SELFPAY | PROVIDERS: PCP Nurse Practitioner Family; Visit Provider Internal Medicine Cardiovascular Disease | DX: Z45.02 Encounter for adjustment and management of automatic implantable cardiac defibrillator (principal) ==

== ENCOUNTER → 2022-04-18 11:14 | Outpatient (BNVA) | payer MEDICARE, BC, SELFPAY | PROVIDERS: PCP Internal Medicine; Visit Provider Internal Medicine Cardiovascular Disease | DX: I13.0 Hypertensive heart and chronic kidney disease with heart failure and stage 1 through stage 4 chronic kidney disease, or unspecified chronic kidney disease (principal); N18.9 Chronic kidney disease, unspecified; I50.43 Acute on chronic combined systolic (congestive) and diastolic (congestive) heart failure; I48.19 Other persistent atrial fibrillation; Z95.810 Presence of automatic (implantable) cardiac defibrillator | CPT/HCPCS: 99214 ==

== ENCOUNTER → 2022-06-29 11:55 | Outpatient (BNVA) | payer MEDICARE, SELFPAY | PROVIDERS: PCP Internal Medicine; Visit Provider Urology | DX: R33.9 Retention of urine, unspecified (principal); N39.9 Disorder of urinary system, unspecified | CPT/HCPCS: 51702 ==

== ENCOUNTER → 2022-08-15 12:02 | Outpatient (BNVA) | payer MEDICARE, SELFPAY | PROVIDERS: PCP Internal Medicine; Visit Provider Urology | DX: R33.9 Retention of urine, unspecified (principal) | CPT/HCPCS: 99213 ==

== ENCOUNTER → 2022-09-13 13:32 | Outpatient (BNVA) | payer MEDICARE, SELFPAY | PROVIDERS: PCP Internal Medicine; Visit Provider Nurse Practitioner Family | DX: I13.0 Hypertensive heart and chronic kidney disease with heart failure and stage 1 through stage 4 chronic kidney disease, or unspecified chronic kidney disease (principal); N18.9 Chronic kidney disease, unspecified; I50.43 Acute on chronic combined systolic (congestive) and diastolic (congestive) heart failure; I48.19 Other persistent atrial fibrillation; I25.10 Atherosclerotic heart disease of native coronary artery without angina pectoris; Z95.810 Presence of automatic (implantable) cardiac defibrillator; Z95.1 Presence of aortocoronary bypass graft | CPT/HCPCS: 99214 ==

== ENCOUNTER → 2023-01-04 16:57 | Outpatient (BNVA) | payer MEDICARE, SELFPAY | PROVIDERS: PCP Internal Medicine; Visit Provider Internal Medicine Cardiovascular Disease | DX: Z45.02 Encounter for adjustment and management of automatic implantable cardiac defibrillator (principal) | CPT/HCPCS: 93296 ==

== ENCOUNTER 2023-04-08 15:28 | Outpatient (CLI) | payer MEDICARE, SELFPAY ==
--- NOTE | 2023-04-08 | US_ITS ---
WS: [id number] TESTICULAR ULTRASOUND HISTORY: Inflammation of scrotum COMPARISON: None available. TECHNIQUE: Real-time and color Doppler imaging or utilized to perform a testicular ultrasound. Right testicle: 4.8 cm x 3.7 cm x 3.6 cm. Enlarged heterogeneous testicle. There is mild thickening around the testicle. Increased color Doppler throughout the testicle. Although there is no mass there is heterogeneity. Large complex hydrocele surrounding the testicle. Multiple loculated components. Right epididymis: Enlarged heterogeneous and hypervascular. Left testicle: 4.3 cm x 3.4 cm x 2.7 cm. Heterogeneous testicle. No mass identified. No increased vascularity. Normal color Doppler is present throughout. Systolic and diastolic velocities are both present. Small simple hydrocele. Left epididymis: Normal epididymis with no increased vascularity. IMPRESSION: 1. Acute RIGHT epididymal orchitis. No testicular mass identified. 2. Large loculated RIGHT hydrocele. 3. Heterogeneous LEFT testicle but no evidence for orchitis.
== END 2023-04-08 15:29 | disposition home or self-care (01) ==
PROVIDERS: PCP Internal Medicine; Visit Provider Nurse Practitioner Family
DX: N48.89 Other specified disorders of penis (principal); N45.2 Orchitis; N43.3 Hydrocele, unspecified; I11.0 Hypertensive heart disease with heart failure; I50.43 Acute on chronic combined systolic (congestive) and diastolic (congestive) heart failure; I25.10 Atherosclerotic heart disease of native coronary artery without angina pectoris; I48.19 Other persistent atrial fibrillation; E78.5 Hyperlipidemia, unspecified; I65.23 Occlusion and stenosis of bilateral carotid arteries; I34.0 Nonrheumatic mitral (valve) insufficiency; Z79.899 Other long term (current) drug therapy; Z95.1 Presence of aortocoronary bypass graft
CPT/HCPCS: 76870; 99214

== ENCOUNTER 2023-09-16 09:18 | Outpatient (CLI) | payer MEDICARE, SELFPAY ==
--- NOTE | 2023-09-16 09:29 | NM_ITS ---
WS: [id number] NUCLEAR MEDICINE BONE SCAN Radiopharmaceutical: 24.2 Tc-99m MDP mCi IV Injection site: Antecubital Postinjection imaging delay: 1 hr CLINICAL INFORMATION: ELEVATED ALKALINE PHOSPHATASE COMPARISON: None. FINDINGS: Bone lesions: There are no osseous lesions suspicious for metastatic disease. Soft tissue contours: Normal. Kidneys: Normal. Other findings: Thoracic kyphosis with slight increased uptake in the mid thoracic spine vertebral nba dy. This could be further evaluated with CT or MRI suspicious for compression fracture. IMPRESSION: 1. No evidence of osseous metastatic disease. 2. Thoracic kyphosis with slight increased uptake in a mid thoracic spine vertebral body. This could be further evaluated with CT or MRI suspicious for compression fracture. This is approximately T9 ve rtebral body
== END 2023-09-16 09:19 | disposition home or self-care (01) ==
PROVIDERS: PCP Internal Medicine; Visit Provider Internal Medicine
DX: R74.8 Abnormal levels of other serum enzymes (principal); M40.204 Unspecified kyphosis, thoracic region
CPT/HCPCS: 78306; A9561

== ENCOUNTER → 2023-10-28 13:54 | Outpatient (BNVA) | payer MEDICARE, SELFPAY | PROVIDERS: PCP Internal Medicine; Visit Provider Internal Medicine Cardiovascular Disease | DX: Z95.3 Presence of xenogenic heart valve (principal); I13.0 Hypertensive heart and chronic kidney disease with heart failure and stage 1 through stage 4 chronic kidney disease, or unspecified chronic kidney disease; I50.22 Chronic systolic (congestive) heart failure; N18.9 Chronic kidney disease, unspecified; Z95.810 Presence of automatic (implantable) cardiac defibrillator; I36.1 Nonrheumatic tricuspid (valve) insufficiency; I25.10 Atherosclerotic heart disease of native coronary artery without angina pectoris; I48.19 Other persistent atrial fibrillation; E78.5 Hyperlipidemia, unspecified | CPT/HCPCS: 99215 ==

== ENCOUNTER 2023-11-15 11:49 | Outpatient (CLI) | payer MEDICARE, SELFPAY ==
--- NOTE | 2023-11-15 12:15 | USCV_ITS ---
Tank Saavedra Age: 88 Gender: M : 1935 Exam Date: 11/15/2023 12:27 Ordering Phys: Yamileth Yepez MD ([email or web address]) Technologist: Burton Cannon [place] [facility] [place]: cardiomyopathy BP: 167 / 84 HR: 60 Rhythm: Sinus Technical Quality: Adequate MEASUREMENTS (Male / Female) Normal Values 2D ECHO LV Diastolic Diameter PLAX 2.3 cm 4.2 - 5.9 / 3.9 - 5.3 cm IVS Diastolic Thickness 1.1 cm 0.6 - 1.0 / 0.6 - 0.9 cm IVS Systolic Thickness 1.4 cm LVPW Diastolic Thickness 1.0 cm 0.6 - 1.0 / 0.6 - 0.9 cm LVPW Systolic Thickness 1.3 cm LVOT Diameter 2.0 cm LV Ejection Fraction 2D Teich 47.9 % LV Ejection Fraction MOD 2C 34.0 % LV Ejection Fraction 2C AL 37.5 % LA Diameter 4.9 cm RA Systolic Volume 4C AL 83.2 ml RA Systolic Volume 4C MOD 81.1 ml LA Sys Volume AL 95.0 cm cubed LA Sys Volume Index AL 47.0 cm cubed/m squared Aorta at Sinotubular Diameter 2.3 cm IVC Diameter 2.8 cm DOPPLER AV Peak Velocity 162.7 cm/s LVOT Peak Velocity 44.0 cm/s AV Area Cont Eq vti 1.0 cm squared AV Area Cont Eq pk 0.9 cm squared MV Peak Velocity 97.0 cm/s MV Area PHT 5.2 cm squared Mitral E to A Ratio 2.4 TV Peak Velocity 207.5 cm/s TR Peak Velocity 216.0 cm/s TR Peak Gradient 18.7 mmHg TR Mean Velocity 154.0 cm/s TR Mean Gradient 10.5 mmHg TR Velocity Time Integral 63.3 cm PV Peak Velocity 74.3 cm/s RV Ejection Time 0.3 s FINDINGS Left Ventricle Diffuse hypokinesis left-ventricular with ejection fraction of 37% Right Ventricle The right ventricle is normal in size and function. Right Atrium Mildly increased right atrial size. Left Atrium Mildly increased left atrial size. Mitral Valve Thickened mitral valve. Trace mitral valve regurgitation. Aortic Valve The possible bioprosthetic valve the aortic position appears to be well-seated. Tricuspid Valve Moderate tricuspid valve regurgitation. Pulmonic Valve Mild pulmonary valve regurgitation. Pericardium Normal pericardium without effusion. Aorta Normal ascending aorta dimension. IVC Dilated IVC with decreased respiratory variation. CONCLUSIONS Diffuse hypokinesis left-ventricular with ejection fraction of 37%. Mild biatrial enlargement. The possible bioprosthetic valve the aortic position appears to be well-seated. The peak velocity aortic valve was 1.6 m/s with a calculated valve area 1.0 cm squared Thickened mitral valve. Trace mitral valve regurgitation. Moderate tricuspid valve regurgitation. Mild pulmonary valve regurgitation. There is no pericardial effusion. Compared to the study from 01/24/2021, there is slight drop in the LV ejection fraction from 40% to 37% Dr Yamileth Yepez MD FAC (Electronically Signed) Final Date: 18 Nov 2023 12:33 S
== END 2023-11-15 11:50 | disposition home or self-care (01) ==
LOC: RAD 11:49
PROVIDERS: PCP Internal Medicine; Visit Provider Internal Medicine Cardiovascular Disease
DX: R06.09 Other forms of dyspnea (principal); I34.0 Nonrheumatic mitral (valve) insufficiency; I36.1 Nonrheumatic tricuspid (valve) insufficiency; I37.1 Nonrheumatic pulmonary valve insufficiency; I34.89 Other nonrheumatic mitral valve disorders; I51.7 Cardiomegaly
CPT/HCPCS: 93306

== ENCOUNTER → 2023-12-10 11:01 | Outpatient (BNVA) | payer MEDICARE, SELFPAY | PROVIDERS: PCP Internal Medicine; Visit Provider Internal Medicine Cardiovascular Disease | DX: Z45.02 Encounter for adjustment and management of automatic implantable cardiac defibrillator (principal) | CPT/HCPCS: 93296 ==

== ENCOUNTER → 2024-05-06 11:29 | Outpatient (BNVA) | payer MEDICARE, SELFPAY | PROVIDERS: PCP Internal Medicine; Visit Provider Internal Medicine Cardiovascular Disease | DX: R06.02 Shortness of breath (principal); I50.43 Acute on chronic combined systolic (congestive) and diastolic (congestive) heart failure; I34.0 Nonrheumatic mitral (valve) insufficiency; I65.23 Occlusion and stenosis of bilateral carotid arteries; I25.10 Atherosclerotic heart disease of native coronary artery without angina pectoris; I48.19 Other persistent atrial fibrillation; E78.5 Hyperlipidemia, unspecified; Z95.810 Presence of automatic (implantable) cardiac defibrillator; Z95.3 Presence of xenogenic heart valve | CPT/HCPCS: 36415; 80048; 83880; 99214 ==

== ENCOUNTER 2024-05-19 14:35 | Outpatient (CLI) | payer MEDICARE, SELFPAY ==
--- NOTE | 2024-05-19 14:38 | CTR_ITS ---
PROCEDURE INFORMATION: Exam: CT Abdomen And Pelvis With Contrast Exam date and time: 05/19/2024 3:44 PM Age: 88 years old Clinical indication: Abnormal findings; Abnormal lab test; Other: Elevated alkaline phosphatase; Prior surgery; Surgery date: 6+ months; Surgery type: Hernia, pacemaker TECHNIQUE: Imaging protocol: Computed tomography of the abdomen and pelvis with contrast. Radiation optimization: All CT scans at this facility use at least one of these dose optimization techniques: automated exposure control; mA and/or kV adjustment per patient size (includes targeted exams where dose is matched to clinical indication); or iterative reconstruction. Contrast material: OMNI 350; Contrast volume: 100 ml; Contrast route: INTRAVENOUS (IV); COMPARISON: CT abdomen pelvis wo con [id number] 01/26/2021 1:23 PM RADIATION DOSE METRICS: Total DLP (mGy-cm): 460.1 FINDINGS: Lungs: Bibasilar atelectasis. Pleural spaces: Trace left pleural effusion. Heart: Status post TAVR. Cardiac pacing leads partially imaged. Findings. Heart appears mildly enlarged. Liver: Hepatic steatosis. No focal liver lesion. Gallbladder and biliary ducts: Cholelithiasis without associated inflammatory changes. Pancreas: Pancreas is mildly atrophic. No ductal dilatation. Spleen: Normal. No splenomegaly. Adrenal glands: Normal. No mass. Kidneys and ureters: Diffuse thinning of the renal cortices bilaterally. Dominant left renal cortical cysts measures up to 9.8 cm, previously 8.4 cm. Dominant right renal cyst measures up to 3.1 cm, previously 2.5 cm. Additional cysts and subcentimeter cortical hypodensities too small to characterize which likely represent additional cysts. No hydronephrosis. Mild bilateral perinephric fat stranding is nonspecific. Stomach and bowel: Unremarkable. No obstruction. No mucosal thickening. Appendix: No evidence of appendicitis. Intraperitoneal space: Unremarkable. No free air. No significant fluid collection. Vasculature: Moderate diffuse atherosclerotic aortoiliac calcifications. No aortic aneurysm. Prominent pelvic venous structures which may reflect venous stasis/congestion. Lymph nodes: Unremarkable. No enlarged lymph nodes. Urinary bladder: Urinary bladder is decompressed with a Wang catheter in place. Mild fat stranding along the urinary bladder. Reproductive: The prostate is mildly enlarged and heterogeneous. Bones/joints: Chronic compression deformity at L2. Multilevel degenerative changes throughout the visualized spine. Age-indeterminate mild compression deformity along the inferior endplate of T10 and areas of patchy sclerosis in T9. Diffuse osseous demineralization. Soft tissues: Bilateral gynecomastia. Small fat containing right inguinal hernia with a trace amount of fluid. Other findings: Trace fluid in the pelvis. CT/CT abdomen pelvis w con* [id number] IMPRESSION: 1. Cholelithiasis without CT evidence of acute cholecystitis. 2. No biliary ductal dilatation. 3. Hepatic steatosis. 4. Decompressed urinary bladder with a Wang catheter in place. Mild pericystic fat stranding is nonspecific. Correlate with physical exam findings and urinalysis to exclude acute cystitis. 5. Mild inferior endplate compression deformity at T10 is new from 2020 but is otherwise age indeterminate. 6. Patchy sclerosis within the T9 vertebral body is also new from 2020. Findings are nonspecific, though mild subacute fracture is not entirely excluded. 7. Additional ancillary findings as above are similar to prior. COMMENTS: Consistent with the [employer]'s Incidental Findings Committee white paper (J Am Marion Radiol 2018): Any incidental renal lesion less than 1 cm or classified as too small to characterize, or any incidental cystic renal lesion characterized as simple-appearing, is likely benign. No follow-up imaging is recommended for these lesions per consensus recommendations based on imaging criteria.
[2024-05-19] MEDS: iohexol 350 mg/mL 500 mL Btl (per mL) IV (15:37)
[2024-05-19] MEDS: iohexol 350 mg/mL 500 mL Btl (per mL) PO (15:37)
== END 2024-05-19 14:36 | disposition home or self-care (01) ==
LOC: RAD 14:36
PROVIDERS: PCP Internal Medicine; Visit Provider Internal Medicine
DX: R74.8 Abnormal levels of other serum enzymes (principal); J98.11 Atelectasis; K76.0 Fatty (change of) liver, not elsewhere classified; K80.20 Calculus of gallbladder without cholecystitis without obstruction; Q61.02 Congenital multiple renal cysts; I70.0 Atherosclerosis of aorta; Z96.0 Presence of urogenital implants; S32.020A Wedge compression fracture of second lumbar vertebra, initial encounter for closed fracture; N62 Hypertrophy of breast
CPT/HCPCS: 74177

== ENCOUNTER → 2024-05-29 10:16 | Outpatient (BNVA) | payer MEDICARE, SELFPAY | PROVIDERS: PCP Internal Medicine; Visit Provider Nurse Practitioner Family | DX: I13.0 Hypertensive heart and chronic kidney disease with heart failure and stage 1 through stage 4 chronic kidney disease, or unspecified chronic kidney disease (principal); N18.9 Chronic kidney disease, unspecified; I50.43 Acute on chronic combined systolic (congestive) and diastolic (congestive) heart failure; I25.10 Atherosclerotic heart disease of native coronary artery without angina pectoris; I48.19 Other persistent atrial fibrillation; Z95.810 Presence of automatic (implantable) cardiac defibrillator | CPT/HCPCS: 99214 ==

== ENCOUNTER 2024-06-05 14:10 | Outpatient (CLI) | payer MEDICARE, SELFPAY ==
[2024-06-05 15:06] LABS: Anion Gap 14.2 (5-19); Blood Urea Nitrogen 22 mg/dL (8-23); Calcium 8.9 mg/dL (8.5-10.5); Carbon Dioxide 24 mmol/L (22-29); Chloride 105 mmol/L (98-107); Glucose 95 mg/dL (65-115); Osmolality Calculated 291 mOsm/kg (285-295); Potassium 4.2 mmol/L (3.5-5.1); Sodium 139 mmol/L (136-145)
[2024-06-05 15:30] LABS: NT Pro B Type Natriuretic Pept 916 pg/mL (0-450)
== END 2024-06-05 14:11 | disposition home or self-care (01) ==
LOC: LAB 14:11
PROVIDERS: PCP Internal Medicine; Visit Provider Nurse Practitioner Family
DX: I50.43 Acute on chronic combined systolic (congestive) and diastolic (congestive) heart failure (principal)
CPT/HCPCS: 36415; 80048; 83880

== ENCOUNTER 2024-07-15 11:47 | Outpatient (CLI) | payer MEDICARE, SELFPAY ==
[2024-07-15 13:08] LABS: Blood Urea Nitrogen 20 mg/dL (8-23); Calcium 9.4 mg/dL (8.5-10.5); Carbon Dioxide 26 mmol/L (22-29); Chloride 108 mmol/L (98-107); Glucose 98 mg/dL (65-115); NT Pro B Type Natriuretic Pept 1299 pg/mL (0-450); Osmolality Calculated 301 mOsm/kg (285-295); Sodium 144 mmol/L (136-145)
[2024-07-15 13:12] LABS: Anion Gap 13.9 (5-19); Potassium 3.9 mmol/L (3.5-5.1)
== END 2024-07-15 11:48 | disposition home or self-care (01) ==
LOC: LAB 11:49
PROVIDERS: PCP Internal Medicine; Visit Provider Nurse Practitioner Family
DX: I50.9 Heart failure, unspecified (principal); R06.02 Shortness of breath
CPT/HCPCS: 36415; 80048; 83880

== ENCOUNTER 2024-08-14 15:34 | Outpatient (CLI) | payer MEDICARE, SELFPAY ==
[2024-08-14 15:59] LABS: Bilirubin Urine Negative (Negative); Blood Urine 2+ (Negative); Glucose Urine UA 3+ (Normal); Ketones Urine Negative (Negative); Leukocyte Esterase Urine 3+ (Negative); Nitrate Urine Negative (Negative); Protein Urine Trace (Negative); Specific Gravity, Urine 1.013 (1.005-1.030); Urine Appearance Cloudy (CLEAR); Urine Color Yellow (Yellow); Urobilinogen Urine 0.2 mg/dL (Negative)
[2024-08-14 16:26] LABS: Add Urine Microscopic? YES; Bacteria Urine 1+ /hpf; Squamous Epithelial Cell Urine 0-4 /hpf (0-5); UA Manual Slide Review YES; UA Slide Review UA Slide Review Perf; WBC Urine 51-100 /hpf (0-5)
== END 2024-08-14 15:35 | disposition home or self-care (01) ==
LOC: LAB 15:40
PROVIDERS: PCP Internal Medicine; Visit Provider Internal Medicine
DX: N40.1 Benign prostatic hyperplasia with lower urinary tract symptoms (principal)
CPT/HCPCS: 81001; 87086

== ENCOUNTER 2024-09-16 11:50 | Outpatient (CLI) | payer MEDICARE, SELFPAY ==
[2024-09-16 12:06] LABS: Bilirubin Urine Negative (Negative); Blood Urine 2+ (Negative); Glucose Urine UA 3+ (Normal); Ketones Urine Negative (Negative); Leukocyte Esterase Urine 2+ (Negative); Nitrate Urine Negative (Negative); Protein Urine 1+ (Negative); Specific Gravity, Urine 1.016 (1.005-1.030); Urine Appearance Cloudy (CLEAR); Urine Color Yellow (Yellow); Urobilinogen Urine 0.2 mg/dL (Negative); pH Urine 5.5 (5-7)
[2024-09-16 12:38] LABS: UA Slide Review UA Slide Review Perf
[2024-09-16 12:40] LABS: Add Urine Microscopic? YES
[2024-09-16 12:41] LABS: Add Urine Culture? Yes; Bacteria Urine 3+ /hpf; Mucus Urine TRACE /hpf; Squamous Epithelial Cell Urine 0-4 /hpf (0-5); WBC Urine 25-40 /hpf (0-5)
== END 2024-09-16 11:51 | disposition home or self-care (01) ==
LOC: LAB 11:53
PROVIDERS: PCP Internal Medicine; Visit Provider Internal Medicine
DX: N40.1 Benign prostatic hyperplasia with lower urinary tract symptoms (principal)
CPT/HCPCS: 81001; 87086

== ENCOUNTER 2024-10-20 14:16 | Outpatient (CLI) | payer MEDICARE, SELFPAY ==
--- NOTE | 2024-10-20 14:24 | XRR_ITS ---
PROCEDURE INFORMATION: Exam: XR Chest Exam date and time: 10/20/2024 2:59 PM Age: 89 years old Clinical indication: Prior surgery; Surgery date: 6+ months; Surgery type: Hernia, pacer; Acute cough, congestion and weakness x 2 wks TECHNIQUE: Imaging protocol: Radiologic exam of the chest. Views: 2 views. COMPARISON: CR XR chest 1V portable [id number] 02/07/2021 11:58 AM FINDINGS: Tubes, catheters and devices: There is a three-lead cardiac AICD via left subclavian approach. Findings are stable. Lungs: Interval development of patchy alveolar airspace disease in the left lower lobe. Findings are suspicious for pneumonia. Pleural spaces: Interval development of a small left pleural effusion. Heart/Mediastinum: Stable moderate enlargement of the cardiac silhouette. Mediastinal contours are unremarkable. Vasculature: Stable vascular calcifications in the aorta. Stable tortuosity of the aorta. An aortic root prosthesis is stable in position. Bones/joints: Unremarkable for age. XR/XR chest 2V* [id number] IMPRESSION: 1. Interval development of patchy alveolar airspace disease in the left lower lobe. Findings are suspicious for pneumonia. Recommend followup chest imaging to insure resolution of these findings. 2. Interval development of a small left pleural effusion. 3. Incidental/nonacute findings are listed in the report.
== END 2024-10-20 14:17 | disposition home or self-care (01) ==
PROVIDERS: PCP Internal Medicine; Visit Provider Nurse Practitioner Family
DX: R05.1 Acute cough (principal); R91.8 Other nonspecific abnormal finding of lung field; Z96.89 Presence of other specified functional implants; J90 Pleural effusion, not elsewhere classified; I51.7 Cardiomegaly; I70.0 Atherosclerosis of aorta
CPT/HCPCS: 71046

== ENCOUNTER → 2024-10-28 09:45 | Outpatient (BNVA) | payer MEDICARE, SELFPAY | PROVIDERS: PCP Internal Medicine; Visit Provider Nurse Practitioner Family | DX: I25.10 Atherosclerotic heart disease of native coronary artery without angina pectoris (principal); I50.43 Acute on chronic combined systolic (congestive) and diastolic (congestive) heart failure; I48.19 Other persistent atrial fibrillation; Z95.810 Presence of automatic (implantable) cardiac defibrillator; I13.0 Hypertensive heart and chronic kidney disease with heart failure and stage 1 through stage 4 chronic kidney disease, or unspecified chronic kidney disease; N18.9 Chronic kidney disease, unspecified | CPT/HCPCS: 99213 ==

== ENCOUNTER 2024-11-02 12:20 | Outpatient (CLI) | payer MEDICARE, SELFPAY ==
--- NOTE | 2024-11-02 12:25 | XR_ITS ---
WS: [id number] Exam: XR chest 2V* [id number] Date/Time of Exam: 11/02/2024 12:28 PM Reason For Exam: PNEUMONIA,BACTERIAL Comparison 10/20/2024. The lungs are fully expanded and clear. There are mild chronic changes in the basal areas. Mild cardiac enlargement. Signs of CABG surgery and also cardiac valve repair. Permanent cardiac pacer over the LEFT chest. The mediastinum is normal in contour. No pneumothorax. Bony structures are unremarkable. XR/XR chest 2V* [id number] IMPRESSION: 1. Mild cardiac enlargement unchanged. Chronic pulmonary changes but no acute p rocess noted.
== END 2024-11-02 12:21 | disposition home or self-care (01) ==
LOC: LAB 12:25 → RAD 13:01
PROVIDERS: PCP Internal Medicine; Visit Provider Internal Medicine
DX: J15.9 Unspecified bacterial pneumonia (principal); I51.7 Cardiomegaly; R91.8 Other nonspecific abnormal finding of lung field; Z98.890 Other specified postprocedural states; Z96.89 Presence of other specified functional implants
CPT/HCPCS: 71046

== ENCOUNTER 2024-12-11 07:29 | Outpatient (CLI) | payer MEDICARE, SELFPAY ==
--- NOTE | 2024-12-11 07:45 | USCV_ITS ---
Tank Saavedra Age: 89 Gender: M : 1935 Exam Date: 12/11/2024 08:21 Ordering Phys: Mignon Swanson NP Technologist: Burton Cannon Exam Location: [facility] [place] Indication: systolic heart failure BP: 167 / 84 HR: 59 Rhythm: Sinus Technical Quality: Adequate MEASUREMENTS (Male / Female) Normal Values 2D ECHO LV Diastolic Diameter PLAX 3.4 cm 4.2 - 5.9 / 3.9 - 5.3 cm IVS Diastolic Thickness 1.3 cm 0.6 - 1.0 / 0.6 - 0.9 cm IVS Systolic Thickness 2.0 cm LVPW Diastolic Thickness 0.9 cm 0.6 - 1.0 / 0.6 - 0.9 cm LVPW Systolic Thickness 1.3 cm LVOT Diameter 2.0 cm LV Ejection Fraction 2D Teich 70.2 % LV Ejection Fraction MOD 4C 46.9 % LV Ejection Fraction MOD 2C 51.6 % LV Ejection Fraction 2C AL 51.3 % LA Diameter 5.0 cm RA Systolic Volume 4C AL 54.2 ml RA Systolic Volume 4C MOD 56.2 ml LA Sys Volume AL 60.5 cm cubed LA Sys Volume Index AL 30.0 cm cubed/m squared Aorta at Sinotubular Diameter 2.3 cm IVC Diameter 2.5 cm M-MODE LA Ao Ratio MM 1.9 AV Cusp Separation MM 0.9 cm DOPPLER AV Peak Velocity 99.0 cm/s LVOT Peak Velocity 42.0 cm/s AV Area Cont Eq vti 1.3 cm squared AV Area Cont Eq pk 1.3 cm squared MV Peak Velocity 89.0 cm/s MV Area PHT 5.2 cm squared TV Peak Velocity 152.8 cm/s TR Peak Velocity 167.0 cm/s TR Peak Gradient 11.2 mmHg TR Mean Velocity 113.0 cm/s TR Mean Gradient 6.1 mmHg TR Velocity Time Integral 50.6 cm PV Peak Velocity 62.0 cm/s RV Ejection Time 0.4 s FINDINGS Left Ventricle Moderately reduced LV systolic function. Akinesis of inferior inferoseptal wall segments. Rest of the wall segments are hypokinetic. Estimated LVEF 40%. Right Ventricle Mildly dilated right ventricle with reduced RV systolic function. Right Atrium Mildly dilated right atrium Left Atrium Dilated left atrium Mitral Valve Thickened mitral valve. Mild mitral regurgitation. Aortic Valve Thickened aortic valve. No aortic stenosis. Tricuspid Valve Mildly thickened tricuspid valve. Trace tricuspid regurgitation. Inadequate TR jet to assess pulmonary pressure appropriately Pulmonic Valve Pulmonic valve not well visualized. Trace pulmonary valve regurgitation. Pericardium No pericardial effusion. Aorta Normal size aortic root and proximal ascending aorta. IVC Inferior vena cava not visualized. CONCLUSIONS Moderately reduced LV systolic function. Akinesis of in the septal wall and hypokinesis of rest of the wall segments. LVEF is reduced, estimated at 40%. Dilated RV with reduced RV systolic function. Dilated left and right atria with mild MR. Unable to assess pulmonary pressures due to inadequate TR jet. Renee Lau MD (Electronically Signed) Final Date: 11 December 2024 17:53 S
== END 2024-12-11 07:30 | disposition home or self-care (01) ==
LOC: RAD 07:30
PROVIDERS: PCP Internal Medicine; Visit Provider Nurse Practitioner Family
DX: I50.43 Acute on chronic combined systolic (congestive) and diastolic (congestive) heart failure (principal); R93.1 Abnormal findings on diagnostic imaging of heart and coronary circulation; I34.0 Nonrheumatic mitral (valve) insufficiency; I35.8 Other nonrheumatic aortic valve disorders; I07.9 Rheumatic tricuspid valve disease, unspecified
CPT/HCPCS: 93306

== ENCOUNTER → 2024-12-30 10:24 | Outpatient (BNVA) | payer MEDICARE, SELFPAY | PROVIDERS: PCP Internal Medicine; Visit Provider Internal Medicine Cardiovascular Disease | DX: I13.0 Hypertensive heart and chronic kidney disease with heart failure and stage 1 through stage 4 chronic kidney disease, or unspecified chronic kidney disease (principal); N18.9 Chronic kidney disease, unspecified; I50.43 Acute on chronic combined systolic (congestive) and diastolic (congestive) heart failure; I48.19 Other persistent atrial fibrillation; I34.0 Nonrheumatic mitral (valve) insufficiency; E78.5 Hyperlipidemia, unspecified; I25.118 Atherosclerotic heart disease of native coronary artery with other forms of angina pectoris; T83.511D Infection and inflammatory reaction due to indwelling urethral catheter, subsequent encounter; N39.0 Urinary tract infection, site not specified; Y73.8 Miscellaneous gastroenterology and urology devices associated with adverse incidents, not elsewhere classified; Z95.2 Presence of prosthetic heart valve; Z95.1 Presence of aortocoronary bypass graft; Z95.810 Presence of automatic (implantable) cardiac defibrillator; Z45.010 Encounter for checking and testing of cardiac pacemaker pulse generator [battery]; Z79.01 Long term (current) use of anticoagulants; R06.02 Shortness of breath | CPT/HCPCS: 99215 ==

== ENCOUNTER 2025-01-11 05:54 | Outpatient (CLI) | payer MEDICARE, SELFPAY ==
[2025-01-11 06:00] VITALS: BP 158/97; PULSE 67; RESP 16; TEMP 36.4; O2SAT 99; BMI 26.4
[2025-01-11 06:34] LABS: Hematocrit 46.5 % (37-53); Hemoglobin 15.10 g/dL (11.27-16.99); Mean Corpuscular HGB Conc 32.5 g/dL (30-55); Mean Corpuscular Hemoglobin 30.4 pg (27-33); Mean Corpuscular Volume 93.8 fl (82-101); Nucleated Red Blood Cells % 0 %; Platelet Count 119 10^3/cmm (157-399); Red Blood Count 4.96 10^6/uL (3.85-5.65); White Blood Count 6.36 10^3/uL (3.29-11.43)
[2025-01-11 06:36] LABS: Glucose Urine UA Negative (Normal); Nitrate Urine Positive (Negative); Specific Gravity, Urine 1.011 (1.005-1.030)
[2025-01-11 06:41] LABS: Add Urine Microscopic? YES
[2025-01-11 06:58] LABS: INR 1.13 (0.8-1.2); Prothrombin Time 15.30 SECONDS (12.1-14.9)
[2025-01-11 07:25] LABS: Anion Gap 17.7 (5-19); Blood Urea Nitrogen 21 mg/dL (8-23); Calcium 9.3 mg/dL (8.5-10.5); Carbon Dioxide 23 mmol/L (22-29); Chloride 99 mmol/L (98-107); Creatinine Clr Calc Pharmacy 48.2293; Glucose 82 mg/dL (65-115); Osmolality Calculated 284 mOsm/kg (285-295); Potassium 3.7 mmol/L (3.5-5.1); Sodium 136 mmol/L (136-145)
--- NOTE | 2025-01-11 07:34 | PM.MISC ---
Miscellaneous Note Purpose of Documentation: Outpatient procedure is canceled Note: This patient came to the hospital today for a scheduled ENGINEER DESIGN AND CONSTRUCTION-D revision. He has a history of chronic UTI. He has not had any recent antibiotics. The urinalysis today revealed elevated white cell count and a positive nitrate. He is afebrile. He has no chest pain, shortness of breath, palpitation or dizziness. Also I was told that there is no hospital bed available to keep him overnight. We usually give postop IV antibiotic for 24 hours. So at this point it was thought to be best for the patient to reschedule this procedure for a later date, after treating the UTI appropriately. I discussed this with the patient and his in detail which they understood well So the procedure was canceled I tried to contact his primary care provider Dr. Daly. But she is not available at this time I will be contacting her office regarding this as well.
--- NOTE | 2025-01-11 07:45 | PC.NURSE ---
Due to results of UA, Dr. Yepez postponed procedure for later date until treatment for UTI completed. Urine culture is pending. Pt and family updated on plan.
== END 2025-01-11 05:55 | disposition home or self-care (01) ==
LOC: CCL 05:55
PROVIDERS: PCP Internal Medicine; Visit Provider Internal Medicine Cardiovascular Disease
PROC: 0JPT0PZ Removal of Cardiac Rhythm Related Device from Trunk Subcutaneous Tissue and Fascia, Open Approach (ICD-10-PCS; principal; 2025-01-11 07:00)
DX: Z53.8 Procedure and treatment not carried out for other reasons (principal); N39.0 Urinary tract infection, site not specified
CPT/HCPCS: 36415; 80048; 81001; 85025; 85610; 87086; J0690; J2250; J3010; J3373; J7030; J7050; J9999

== ENCOUNTER 2025-01-29 07:29 | Outpatient (CLI) | payer MEDICARE, SELFPAY ==
[2025-01-29] VITALS (17 sets, daily range): BP systolic 98–148; BP diastolic 68–91; PULSE 61–72; RESP 9–22; TEMP 36.1–36.8; O2SAT 94–98; BMI 26.4
--- NOTE | 2025-01-29 07:30 | XACV_ITS ---
Wt: 81 kg BSA: 2.00 m2 Gender: Male : 1935 Any Known Allergies: Other Exam Priority: Routine Procedure(s): Procedure Description: Diagnostic procedure Procedure Description: Miscellaneous Procedure Description: Generator Replacement AICD (EOL) Diagnostic Cath Status: Elective Conclusions 1. This patient was brought to the cardiac [employer] [facility] for an elective revision of his SQUEEGEE OPERATOR-D. He underwent a SQUEEGEE OPERATOR-D revision under local anesthesia and IV sedation. Tolerated the procedure very well and with no complications. Please refer to the procedure report for details. Clinical Evaluation EBL: 5mL-10mL Procedural Details Pre-Procedure Time Out. Identified patient by full name and date of as verbalized by the patient/guarantor. Does the consent match the physician's order: Yes. Accurate & Complete Informed Consent: Yes. Inpatient/Outpatient History & Physical on Chart: Yes. If H&P is completed, is and addenduem needed: No; If yes, is the addendum complete: N/A. Visualize and Verify Site with Patient/Guarantor: N/A. Relevant Radiology Images available: Yes. Pre-op teaching completed and patient verbalized understanding. The risks, benefits, and alternatives of sedation and/or procedure were discussed by physician. The patient agrees to continue. Procedure started. PERRLA. 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 Lungs clear x 5 lobes. IV Site on Arrival: 20 gauge in the right anticubital. IV Fluids: 0.9% NaCl at KVO. 0 mL infused prior to rn labor delivery. Pre Procedural Pulses: bilateral radial was Doppled. Oxygen started at 2liters/min via nasal canula. bilateral groins was prepped with chloroprep then draped in the usual sterile fashion. Physician notified. Baseline sample Acquired. HR: 60 BPM. Physician arrived. Supplies: Cath pack, micropunture, bovie pen, 2-0 silk, 0 surgilon, 3-0 vicryl, 4-0 vicryl. Pre sponge count: 55. Pre sharps count: 18. Pre instrument count: 10. AP Pads placed on patient. Physician scrubbed in. Immediate Pre-Procedure Time Out. Correct Patient: Yes; Correct Procedure: Yes; Correct Site: Yes; Correct Patient Position: Yes; Correct Supplies: Yes; Dried Flammable Prep: Yes; Blood Products Available: N/A;. Lidocaine 1% with epinephrine infiltrated to Right subclavian area. Incision and pacer pocket made in right subclavian region. 2-0 silk used in the pacer pocket. Old generator removed from the pacer pocket. New generator attached and tested. Generator Lot# [id number] EXP: 04/20/2026. Antibiotic flush used to clean pacer pocket. Generator secured with surgilon. Antibiotic sleeve placed around the generator. LOT# [id number] EXP: 07/10/2025. Subcutaneous tissue closed with 3-0 vicryl. Cutaneous tissue closed with 4-0 vicryl. All final counts correct. Physician scrubbed out. right subclavian pocket dressed per physician order. No bleeding or hematoma noted at right subclavian pocket. Post Procedure: Pulses reassessed and unchanged. PERRLA. 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 No VTE prophylaxis required. Medication's Wasted: Lidocaine 1% = 20 mL. Total IV fluids: 75 mL. Vital chart was stopped. Complications: None. Estimated blood loss: 5mL-10mL. Responsiveness - Normal response to verbal stimuli; alert and oriented, PERRLA. Airway - Unaffected, no intervention required; spontaneous ventilation. Circulation: W/N/L, pulses unchanged. Nausea/Vomiting: Yes. Procedure completed. Patient transferred by stretcher to CPRU. Procedure Medications Start: 9:10 AM Stop: 9:10 AM Medication: Ancef Amount: 2 g Route: I.V. Start: 9:12 AM Stop: 9:12 AM Medication: Versed Amount: 1 mg Route: I.V. Start: 9:13 AM Stop: 9:13 AM Medication: Fentanyl Amount: 50 mcg Route: I.V. Start: 9:33 AM Stop: 9:33 AM Medication: Versed Amount: 1 mg Route: I.V. Start: 9:33 AM Stop: 9:33 AM Medication: Fentanyl Amount: 50 mcg Route: I.V. I, the attending physician, have reviewed and verified all procedure medications. Yes, all medications given per verbal order History/Risk Factors Hypertension: Yes Dyslipidemia: No Peripheral Arterial Disease (PAD): No Myocardial Infarction (CO): No Obesity: No Renal Disease: No Tobacco Use: Never Prior Interventions PCI: No CABG: Yes Valve Surgery: No Report Signatures Finalized by Dr Yamileth Yepez MD [facility] on 01/29/2025 11:15 AM
[2025-01-29 08:06] LABS: Hematocrit 45.3 % (37-53); Hemoglobin 15.00 g/dL (11.27-16.99); Mean Corpuscular HGB Conc 33.1 g/dL (30-55); Mean Corpuscular Hemoglobin 30.9 pg (27-33); Mean Corpuscular Volume 93.4 fl (82-101); Nucleated Red Blood Cells % 0 %; Platelet Count 108 10^3/cmm (157-399); Red Blood Count 4.85 10^6/uL (3.85-5.65); White Blood Count 6.36 10^3/uL (3.29-11.43)
[2025-01-29 08:18] LABS: Slide Review Slide Review Perform
--- NOTE | 2025-01-29 08:21 | ECG_ITS ---
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 Measurements Intervals [place] Rate: 47 P: 0 NV: 0 QRS: 212 QRSD: 201 T: 38 QT: 532 QTc: 475 Interpretive Statements ELECTRONIC VENTRICULAR PACEMAKER ABNORMAL RHYTHM ECG Compared to ECG 01/23/2021 23:03:09 No significant changes Electronically Signed On 01-29-2025 13:55:37 CDT by Yamileth Yepez M.D. [email or web address]
--- NOTE | 2025-01-29 08:21 | P.HPUD_ITS ---
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 Currently the device is in CASH GRAIN FARMER PLANNED PROCEDURE: Operation Date: 01/29/25 08:30 Proposed Procedures p ICD Generator Exchange/Change - Rem/Rep Multi ICD(Not Applicable) - Yamileth Yepez MD PATIENT REASSESSED PRIOR TO SEDATION, WITH NO CHANGE NOTED: Yes PHYSICAL EXAM: alert, oriented x 3, clear to auscultation bilaterally and regular rate & rhythm AIRWAY EVAL/ANESTHESIA PLAN: normal airway, see other exam findings, ASA III, Monitored Anesthesia, Local Anesthesia, Risks, benefits & alternatives of sedation and/or procedure discussed and Patient agrees to continue as planned
[2025-01-29 08:27] LABS: Anion Gap 15.8 (5-19); Blood Urea Nitrogen 27 mg/dL (8-23); Calcium 9.2 mg/dL (8.5-10.5); Carbon Dioxide 23 mmol/L (22-29); Chloride 103 mmol/L (98-107); Creatinine Clr Calc Pharmacy 48.2293; Glucose 85 mg/dL (65-115); Osmolality Calculated 290 mOsm/kg (285-295); Potassium 3.8 mmol/L (3.5-5.1); Sodium 138 mmol/L (136-145)
--- NOTE | 2025-01-29 08:53 | PM.OP ---
Operative Report Date of procedure: January 29, 2025 Surgeon: Yamileth Yepez MD Procedure: PROCEDURE: RETAIL GREETER-D REVISION PREOPERATIVE DIAGNOSIS: RETAIL GREETER-D elective replacement indication. POSTOPERATIVE DIAGNOSIS:RETAIL GREETER-D elective replacement indication. ESTIMATED BLOOD LOSS: None COMPLICATIONS: None. BRIEF HISTORY: The patient is an 89-year-old white male who had a RETAIL GREETER-D implantation for cardiomyopathy/congestive heart failure/symptomatic bradycardia. He is pacemaker dependent. The patient was found to have elective replacement indication, during routine office followup evaluation. For further management of patient's condition and for the symptomatic bradycardia, the patient required an RETAIL GREETER-D revision. Patient has a history of atrial fibrillation/ASHD/TAVR/hematuria/indwelling Wang's catheter/recurrent UTI. He just finished a course of antibiotic for the UTI last Saturday. Currently remaining afebrile with normal white cell count The procedure was explained to the patient and his in detail with the risks and benefits. The risks of bleeding, hematoma, vascular injury, infection and other concomitant complications were explained in detail, which the patient understood well and consented to proceed. Because of his advanced age, recurrent UTI with the indwelling Wang's catheter, he carries a higher risk for device pocket infection. This was explained to the patient and his family in detail which they understood well. PROCEDURES PERFORMED: 1. Explantation of the old RETAIL GREETER-D device . 2. Implantation of the new RETAIL GREETER-D device The patient brought to the Cardiac Complaint Supervisor. The left side of the neck and the subclavian area were cleaned and draped in a sterile fashion. 1% Xylocaine was used for local anesthetic agent. A 2 inch long incision was made just below the previous pacemaker scar. By sharp and blunt dissection, the RETAIL GREETER-Dpocket was accessed. The old generator was delivered from the pocket. The generator was detached from the lead s. The new generator was attached to the lead. The RETAIL GREETER-D pocket was copiously irrigated with vancomycin solution. Complete hemostasis was achieved. The lead was positioned behind the generator and the generator and the generator was placed inside a Tyrex sleeve .the device was attached to the pectoralis fascia by suturing with 0 Surgilon. Sponge counts were confirmed. The ICD pocket was closed in layers. Skin was approximated using 4-0 Vicryl. EXPLANTED DEVICE: ICD Device: Date of implant 01/06/2018 Brand: VIVA Model number:Quad XT RETAIL GREETER-D Serial number: [id number]. . IMPLANTED DEVICES: Ventricular Lead: Date of implantation: 01/06/2018 Model number: 693 5 AM Serial number: [id number] Make: Medtronic. Atrial Lead Date of implantation 05/31/2011 Model number 5076 Serial number [id number] LV lead Date of implantation 01/06/2018 Model number: [id number] Serial number: [id number] Make: Medtronic Implanted Generator: Date of implantation 01/29/2025 Brand: Windsor XT HF Quad RETAIL GREETER-D MRI SureScan. Model number: [id number] Serial number: [id number] Make: Medtronic TYREX REF: [id number] LOT: [id number] Expiry Stimulation Threshold: Through the Device--the right ventricular sensing was not obtained since the patient is pacemaker dependent .. Lead impedance was 323 and the pacing threshold was 0.75 volts at 0.4 milliseconds. The atrial sensing was not obtained because of the fibrillation . The lead impedance was 475 ohms and the pacing threshold was not obtained. The HV lead impedance was66 Ohms The pacemaker was set for VVI mode with an upper rate of 130 and a lower rate of 60. The LV lead sensing was not obtained because of the pacer dependency. The lead impedance was 760 ohms. Pacing threshold was 1.25 V at 0.4 ms The DFT testing was not done Ventricular tachycardia detection rate was set at 150 bpm The ventricular fibrillation detection rate was set at 200 bpm A pressure dressing was applied over the RETAIL GREETER-D site. The patient was transferred back to medical floor in stable condition.
[2025-01-29 09:35] LABS: Add Urine Microscopic? YES; Glucose Urine UA Norm (Normal); Nitrate Urine Negative (Negative); Specific Gravity, Urine 1.015 (1.005-1.030)
--- NOTE | 2025-01-29 10:21 | PC.NURSE ---
Patient arrived to CPRU post procedure until floor bed becomes available. Pt drowsy, arouses to verbal stimuli and touch. Breathing even and non-labored on 2L NC. Patient denies pain. Placed on bedside cardiac rehabilitation specialist. Pressure dressing to left chest. Clean, dry, and intact. No signs of bleeding or hematoma. Call light in reach. Family at bedside.
--- NOTE | 2025-01-29 14:21 | PC.NURSE ---
Patient received from CPRU s/p ICD generator change. Pressure dressing in place to left upper chest. No s/s of bleeding or hematoma formation observed. Patient denies pain. Instructed patient on site care with restrictions. Patient verbalized understanding. Patient is [place]. Family at bedside.
[2025-01-29] MEDS: ceFAZolin 2,000 mg SDV 2000 MG IVP (17:36)
[2025-01-30 00:42] VITALS: BP 126/71; PULSE 73; RESP 15
[2025-01-30] MEDS: ceFAZolin 2,000 mg SDV 2000 MG IVP ×2 (01:29→08:21)
[2025-01-30 04:01] VITALS: BP 128/76; PULSE 71; RESP 21; TEMP 36.6; O2SAT 97
--- NOTE | 2025-01-30 06:00 | ECG_ITS ---
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
[2025-01-30 07:40] VITALS: BP 131/72; PULSE 70; RESP 18; TEMP 36.5; O2SAT 96
[2025-01-30] MEDS: metoprolol succinate ER (24 HR) 25 mg Tablet 12.5 MG PO (08:21)
[2025-01-30 11:37] VITALS: BP 122/79; PULSE 70; RESP 20; TEMP 36.4; O2SAT 95
--- NOTE | 2025-01-30 13:03 | PM.DCS ---
Discharge Providers Date of Admission: 01/29/2025 Date of Discharge: January 30, 2025 Attending Provider at Discharge: Yamileth Yepez MD Consults: 89-year-old male past medical history significant for cardiomyopathy history of ICD placement/SHELL MAKER LOCKSTITCH-D, history of TAVR history of congestive heart failure brought in yesterday and underwent successful replacement of SHELL MAKER LOCKSTITCH-D electively by Dr. Yepez. Patient was observed overnight for any complication. Patient tolerated procedure well and recovering. Patient denies any complaint including chest pain shortness of breath PND orthopnea. No overnight event. This morning pacemaker/ICD check showing it is working within normal limit. No hematoma or wound dehiscence pain bruising reported he has been discharged home. Primary Care Provider: Lizbeth Berrios MD Reason for Visit Reason for Visit: Z45.010 Physical Exam Const: OTHER: GENERAL: Patient is alert, awake and oriented x3. Patient is in sling HEART: Regular S1 and S2. No murmur, rub or gallop. LUNGS: Clear to auscultate bilaterally. CENTRAL NERVOUS SYSTEM: Grossly nonfocal. EXTREMITIES: Lower extremities with out edema bilaterally. Discharge Data Studies Completed and Pending Pending at discharge Category Date Time Status SOLUTIONS DEVELOPER request for service Routine Exams 01/29/25 07:30 Ordered Urine Culture Routine Lab 01/29/25 07:52 Results Laboratory Results WBC 6.36 10^3/uL (3.29-11.43) 01/29/25 07:52 RBC 4.85 10^6/uL (3.85-5.65) 01/29/25 07:52 Hgb 15.00 g/dL (11.27-16.99) 01/29/25 07:52 Hct 45.3 % (37-53) 01/29/25 07:52 MCV 93.4 fl (82-101) 01/29/25 07:52 MCH 30.9 pg (27-33) 01/29/25 07:52 MCHC 33.1 g/dL (30-55) 01/29/25 07:52 RDW 15.9 % (12.1-15.1) H 01/29/25 07:52 Plt Count 108 10^3/cmm (157-399) L 01/29/25 07:52 MPV 13.4 fL (7.4-10.4) H 01/29/25 07:52 Neut % (Auto) 60.6 % 01/29/25 07:52 Lymph % (Auto) 22.3 % 01/29/25 07:52 Sherman % (Auto) 11.9 % 01/29/25 07:52 Eos % (Auto) 4.2 % 01/29/25 07:52 Baso % (Auto) 0.8 % 01/29/25 07:52 Neut # (Auto) 3.85 10^3/uL (1.8-7.7) 01/29/25 07:52 Lymph # (Auto) 1.4 10^3/uL (0.8-4.8) 01/29/25 07:52 Sherman # (Auto) 0.8 10^3/uL (0.2-0.9) 01/29/25 07:52 Eos # (Auto) 0.3 10^3/uL (0.0-0.8) 01/29/25 07:52 Baso # (Auto) 0.1 10^3/uL (0.0-0.1) 01/29/25 07:52 Nucleated RBC % (auto) 0 % 01/29/25 07:52 Nucleated RBCs # 0.0 /100WBC 01/29/25 07:52 Sodium 138 mmol/L (136-145) 01/29/25 07:52 Potassium 3.8 mmol/L (3.5-5.1) 01/29/25 07:52 Chloride 103 mmol/L (98-107) 01/29/25 07:52 Carbon Dioxide 23 mmol/L (22-29) 01/29/25 07:52 Anion Gap 15.8 (5-19) 01/29/25 07:52 BUN 27 mg/dL (8-23) H 01/29/25 07:52 Creatinine 1.1 mg/dL (0.7-1.2) 01/29/25 07:52 GFR Calculation Not Reportable 01/29/25 07:52 Glucose 85 mg/dL (65-115) 01/29/25 07:52 Calculated Osmolality 290 mOsm/kg (285-295) 01/29/25 07:52 Calcium 9.2 mg/dL (8.5-10.5) 01/29/25 07:52 Urine Color Yellow (Yellow) 01/29/25 07:52 Urine Appearance Slightly cloudy (CLEAR) 01/29/25 07:52 Urine pH 5.5 (5-7) 01/29/25 07:52 Ur Specific [place] 1.015 (1.005-1.030) 01/29/25 07:52 Urine Protein 1+ (Negative) H 01/29/25 07:52 Urine Glucose (UA) Norm (Normal) 01/29/25 07:52 Urine Ketones Negative (Negative) 01/29/25 07:52 Urine Blood 1+ (Negative) H 01/29/25 07:52 Urine Nitrate Negative (Negative) 01/29/25 07:52 Urine Bilirubin Neg (Negative) 01/29/25 07:52 Urine Urobilinogen 1 mg/dL (Negative) H 01/29/25 07:52 Ur Leukocyte Esterase 1+ (Negative) H 01/29/25 07:52 Urine RBC 11-20 /hpf (0-2) H 01/29/25 07:52 Urine WBC 6-10 /hpf (0-5) 01/29/25 07:52 Ur Squamous Epith Cells 0-4 /hpf (0-5) H 01/29/25 07:52 Amorphous Sediment Not Reportable 01/29/25 07:52 Urine Bacteria None /hpf (NONE) 01/29/25 07:52 Procedures Performed SHELL MAKER LOCKSTITCH-D revision Vitals Last Vital Signs Temp 97.6 F 01/30/25 11:37 Pulse 70 01/30/25 11:37 Resp 20 H 01/30/25 11:37 BP 122/79 01/30/25 11:37 Pulse Ox 95 01/30/25 11:37 O2 Del Method Room Air 01/30/25 11:37 O2 Flow Rate 2 01/29/25 10:30 Discharge Plan Discharge Patient Disposition: Home Prescriptions: New multivitamin Tablet 1 tab PO DAILY 14 Days Qty: 14 0RF cephalexin 500 mg capsule 500 mg PO Q6H 5 Days Qty: 20 0RF Continued ascorbic acid (vitamin C) 1,000 mg tablet 1 g PO BID@0700,1900 omega-3 fatty acids [Fish Oil Concentrate] 1,000 mg capsule 1,000 mg PO DAILY@0700 lycopene 10 mg capsule 15 mg PO DAILY@0700 loratadine [Claritin] 10 mg tablet 10 mg PO BEDTIME@1900 lutein-zeaxanthin 25-5 mg capsule 1 cap PO .1 daily dorzolamide-timolol 22.3-6.8 mg/mL drops 1 drp ophthalmic (eye) BID metoprolol succinate 25 mg tablet extended release 24 hr See Rx Instructions .ROUTE .COMPLEX Qty: 45 3RF Dose Instruction: Take 1/2 (one-half) tablet by mouth once daily Rx Instructions: Take 1/2 (one-half) tablet by mouth once daily cholecalciferol (vitamin D3) 25 mcg (1,000 unit) capsule 25 mcg PO DAILY triamcinolone acetonide [Nasacort] 55 mcg aerosol,spray 2 spray intranasal DAILY PRN (Reason: Rash) Rx Instructions: administer into each nostril furosemide 40 mg tablet 20 mg PO DAILY nitroglycerin [Nitrostat] 0.4 mg tablet, sublingual 0.4 mg SUBLINGUAL Q5M PRN (Reason: Chest Pain) Qty: 30 2RF spironolactone 25 mg tablet 12.5 mg PO DAILY Qty: 90 3RF tamsulosin 0.4 mg capsule 0.4 mg PO BEDTIME@1900 Qty: 90 3RF atorvastatin 40 mg tablet 40 mg PO DAILY@1900 Qty: 90 4RF levothyroxine [Euthyrox] 150 mcg tablet 150 mcg PO DAILY Qty: 90 0RF methenamine hippurate 1 gram tablet See Rx Instructions .ROUTE .COMPLEX Qty: 60 6RF Dose Instruction: TAKE 1 TABLET BY MOUTH TWICE DAILY, TAKE EACH DOSE WITH 1000 MG OF VITAMIN C Rx Instructions: TAKE 1 TABLET BY MOUTH TWICE DAILY, TAKE EACH DOSE WITH 1000 MG OF VITAMIN C sacubitril-valsartan [Entresto] 97-103 mg tablet 1 tab PO BID Qty: 180 2RF Pigment Furnace Tender OK for DC: Cardiology Diet: Cardiac Patient Instructions: Pacemaker (DC), Post Pacemaker - Lucho Activity Restrictions/Additional Instructions: Minimize the movements of the left shoulder to 45 degrees for the next 10 days Avoid any weightbearing on the left elbow for the next 10 days Keep the device site clean and dry Please keep the patient post pacemaker instructions. Take the antibiotic as prescribed Appointment the [facility] with the nurse practitioner in 1 week for a wound check and device check Appointment with me in the office in 1 month Print Language: Salvadorean Discharge Attestations Time Spent in Discharge Care*: greater than 30 min Status at Discharge: Cognitive status at discharge: moderately impaired cognition, Behavioral status at discharge: cooperative, Quality Metrics Clinical Quality Measures [ No reported AMI, CVA or VTE this stay] Coding Level of Care Code Acute Code for Chg Fwd
== END 2025-01-30 12:45 | disposition home or self-care (01) ==
LOC: CCL 07:33 → CSU 14:14
PROVIDERS: PCP Internal Medicine; Visit Provider Internal Medicine Cardiovascular Disease
DX: Z45.02 Encounter for adjustment and management of automatic implantable cardiac defibrillator (principal); Z95.5 Presence of coronary angioplasty implant and graft; Z95.1 Presence of aortocoronary bypass graft; I13.0 Hypertensive heart and chronic kidney disease with heart failure and stage 1 through stage 4 chronic kidney disease, or unspecified chronic kidney disease; N18.9 Chronic kidney disease, unspecified; I50.9 Heart failure, unspecified; I25.10 Atherosclerotic heart disease of native coronary artery without angina pectoris; E03.9 Hypothyroidism, unspecified; E78.5 Hyperlipidemia, unspecified
CPT/HCPCS: 33241; 33264; 36415; 80048; 81001; 85025; 87077; 87086; 87186; 93005; 97110; 97165; 99152; 99153; A4565; C1722; C1769; J0690; J2250; J3010; J3373; J7030; J7050; J9999

== ENCOUNTER → 2025-02-09 15:12 | Outpatient (BNVA) | payer MEDICARE, SELFPAY | PROVIDERS: PCP Internal Medicine; Visit Provider Nurse Practitioner Family | DX: I13.0 Hypertensive heart and chronic kidney disease with heart failure and stage 1 through stage 4 chronic kidney disease, or unspecified chronic kidney disease (principal); N18.9 Chronic kidney disease, unspecified; I50.9 Heart failure, unspecified; I25.10 Atherosclerotic heart disease of native coronary artery without angina pectoris; I48.91 Unspecified atrial fibrillation; E78.5 Hyperlipidemia, unspecified; I34.0 Nonrheumatic mitral (valve) insufficiency; L29.9 Pruritus, unspecified; Z95.5 Presence of coronary angioplasty implant and graft; Z95.2 Presence of prosthetic heart valve; Z95.1 Presence of aortocoronary bypass graft; Z95.810 Presence of automatic (implantable) cardiac defibrillator | CPT/HCPCS: 99213 ==

== ENCOUNTER 2025-03-17 02:54 | Inpatient (IN) | payer MEDICARE, SELFPAY ==
[2025-03-17] VITALS (42 sets, daily range): BP systolic 107–155; BP diastolic 68–108; PULSE 69–85; RESP 14–24; TEMP 36.2–37.2; O2SAT 91–100; BMI 24.7; BMI 25.2
--- NOTE | 2025-03-17 02:59 | ECG_ITS ---
[facility]: 2025-03-17 Pat Name: Tank Saavedra Department: Room: Gender: Male Rn Access: : 1935 Requested By: Nhan Cruz Order Number: [id number] Martinez MD: Blair Yan M.D. Measurements Intervals [place] Rate: 73 P: 144 AL: 93 QRS: 122 QRSD: 19 T: 30 QT: 246 QTc: 271 Interpretive Statements VENTRICULAR PACED RHYTHM Compared to ECG 01/30/2025 06:13:57 NO SIGNIFICANT CHANGE Electronically Signed On 03-17-2025 21:25:25 CDT by Blair Yan M.D. [email or web address]
--- NOTE | 2025-03-17 02:59 | XRR_ITS ---
PROCEDURE INFORMATION: Exam: XR Chest Exam date and time: 03/17/2025 3:14 AM Age: 89 years old Clinical indication: Pain; Angina pectoris; Prior surgery; Surgery date: 6+ months; Surgery type: Defib; Additional info: Cp TECHNIQUE: Imaging protocol: Radiologic exam of the chest. Views: 1 view. COMPARISON: CR XR chest 2V* [id number] 11/02/2024 12:32 PM FINDINGS: Tubes, catheters and devices: Left chest ICD. Lungs: Unremarkable. No consolidation. Pleural spaces: Unremarkable. No pleural effusion. No pneumothorax. Heart/Mediastinum: CABG. TAVR. Mild cardiomegaly. Bones/joints: Unremarkable. XR/XR chest 1V portable [id number] IMPRESSION: Negative for acute chest pathology.
--- OUTSIDE RECORDS SUMMARY | 2025-03-17 03:06 | XMS_ITS | Encounter Summary ---
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); IMPOTENCE, ORGANIC ORIGN Social History Tobacco Use Types Packs/Day Years Used Date Smoking Tobacco: Never Assessed Sex and Gender Information Value Date Recorded Sex Assigned at Not on file Legal Sex Male 2:37 AM 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
--- OUTSIDE RECORDS SUMMARY | 2025-03-17 03:06 | XMS_ITS | Encounter Summary ---
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) Social History Tobacco Use Types Packs/Day Years Used Date Smoking Tobacco: Never Assessed Sex and Gender Information Value Date Recorded Sex Assigned at Not on file Legal Sex Male 2:37 AM ROLL 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
--- OUTSIDE RECORDS SUMMARY | 2025-03-17 03:06 | XMS_ITS | Encounter Summary ---
Author Organization [facility] Address [address] [place] [address] Care Team Providers Care Microsoft Dynamics Ax Developer Name Role Phone Immanuel Bautista MD, Clive Fuller Primary Care Provider Encounter Details Date Type Department Care Team (Latest Contact Info) Description 04/24/2001 Outpatient Historical [facility] RT BUNDLE BRANCH BLOCK (Primary Dx); HYPERTENSION NOS; Hypertrophy of prostate; VACCINE FOR INFLUENZA Social History Tobacco Use Types Packs/Day Years Used Date Smoking Tobacco: Never Assessed Sex and Gender Information Value Date Recorded Sex Assigned at Not on file Legal Sex Male 2:37 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 MANAGER Gender Identity Not on file Sexual Orientation Not on file documented as of this encounter Plan of Treatment Not on file documented as of this encounter Visit Diagnoses Diagnosis Right bundle branch block- Primary Unspecified essential hypertension Hypertrophy of prostate Hypertrophy (benign) of prostate Need vaccination-viral disease Need for prophylactic vaccination and inoculation against other viral diseases documented in this encounter Care Teams Microsoft Dynamics Ax Developer Relationship Specialty Start Date End Date Clive Gambino Jr., MD [address] [place] [phone] PCP - General 08/19/07 documented as of this encounter
--- OUTSIDE RECORDS SUMMARY | 2025-03-17 03:06 | XMS_ITS | Encounter Summary ---
Author Organization [facility] Address [address] Attn: [place] [address] Care Team Providers Care Pr Manager Name Role Phone Immanuel Bautista MD, Clive Fuller Primary Care Provider Encounter Details Date Type Department Care Team (Late st Contact Info) Description 03/10/2001 Outpatient Historical Clive Gambino Jr., MD [address] [place] [address] Social History Tobacco Use Types Packs/Day Years Used Date Smoking Tobacco: Never Assessed Sex and Gender Information Value Date Recorded Sex Assigned at Not on file Legal Sex Male 2:37 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
--- OUTSIDE RECORDS SUMMARY | 2025-03-17 03:06 | XMS_ITS | Encounter Summary ---
Author Organization [facility] Address [address] [place] [address] Care Team Providers Care Health Information Systems Technician Name Role Phone Immanuel Bautista MD, Clive Fuller Primary Care Provider Encounter Details Date Type Department Care Team (Latest Contact Info) Description 08/21/2006 Outpatient Historical [facility] Cardiology- [place] [address] [place] [address] Other Specified Forms of Chronic Ischemic Heart Disease (Primary Dx); Unspecified Chronic Ischemic Heart Disease; Unspecified Essential Hypertension; Other Premature Beats Social History Tobacco Use Types Packs/Day Years Used Date Smoking Tobacco: Never Assessed Sex and Gender Information Value Date Recorded Sex Assigned at Not on file Legal Sex Male 2:37 AM SODIUM CHLORITE OPERATOR Gender Identity Not on file Sexual Orientation Not on file documented as of this encounter Plan of Treatment Not on file documented as of this encounter Visit Diagnoses Diagnosis Other specified forms of chronic ischemic heart disease- Primary Chronic ischemic heart disease, unspecified Unspecified essential hypertension Other premature beats documented in this encounter Care Teams Health Information Systems Technician Relationship Specialty Start Date End Date Clive Gambino Jr., MD [address] [place] [address] PCP - General 08/19/07 documented as of this encounter
--- OUTSIDE RECORDS SUMMARY | 2025-03-17 03:06 | XMS_ITS | Encounter Summary ---
Author Organization [facility] Address [address] [place] [address] Care Team Providers Care Manager Property Name Role Phone Immanuel Bautista MD, Clive Fuller Primary Care Provider Encounter Details Date Type Department Care Team (Late st Contact Info) Description 12/10/2017 Ancillary Orders 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
--- OUTSIDE RECORDS SUMMARY | 2025-03-17 03:06 | XMS_ITS | Encounter Summary ---
Author Organization [facility] Address [address] [place] [address] Care Team Providers Care Tearer Name Role Phone Immanuel Bautista MD, Clive Fuller Primary Care Provider Encounter Details Date Type Department Care Team (Late st Contact Info) Description 08/19/2007 Outpatient Historical [facility] Cardiology- [place] [address] [place] [address] Navdeep Montalvo MD [address] [address] [place] [address] Social History Tobacco Use Types Packs/Day Years Used Date Smoking Tobacco: Never Assessed Sex and Gender Information Value Date Recorded Sex Assigned at Not on file Legal Sex Male 2:37 AM AUDIO/VISUAL OPERATOR Gender Identity Not on file Sexual Orientation Not on file documented as of this encounter Procedure Notes * Navdeep Montalvo - 08/19/2007 12:00 AM CSTAssociated Order(s): ECG REPORT 08/19/2007 Tank Saavedra [phone] 1935 12 LEAD ELECTROCARDIOGRAM: Normal sinus rhythm at 52 beats per minute. The [place] interval is 218 msec,consistent with very mild first degree AV block. QRS duration 154 msec. QT interval is 420 msec. [place] indeterminate. Right bundle branch block. Nonspecific T abnormality. Navdeep Montalvo M.D., Cardiology , , A, 560, , Doc #: [id number] Electronically Signed by Navdeep Montalvo M.D. 08/26/2007 08:25 cc: O/VISUAL OPERATOR documented in this encounter Plan of Treatment Not on file documented as of this encounter Procedures Procedure Name Priority Date/Time Associated Diagnosis Comments ECG REPORT 08/26/2007 8:25 AM AUDIO/VISUAL OPERATOR documented in this encounter Results * ECG REPORT (08/26/2007 8:25 AM AUDIO/VISUAL OPERATOR) Narrative Transcriptions Navdeep Montalvo - 08/19/2007 12:00 AM CST 08/19/2007 Tank Saavedra [phone] 1935 12 LEAD ELECTROCARDIOGRAM: Normal sinus rhythm at 52 beats per minute.The [place] interval is 218 msec, consistent with very mild first degree AVblock. QRS duration 154 msec. QT interval is 420 msec. Axisindeterminate. Right bundle branch block. Nonspecific T abnormality. Navdeep Montalvo M.D., Cardiology , , A, 560, , Doc #: [id number] Electronically Signed by Navdeep Montalvo M.D. 08/26/2007 08:25 cc: Navdeep Montalvo MD ECG ORDERABLES Final Resul t documented in this encounter Visit Diagnoses Not on filedocumented in this encounter Care Teams Tearer Relationship Specialty Start Date End Date Clive Gambino Jr., MD [address] [place] [address] PCP - General 08/19/07 documented as of this encounter
--- OUTSIDE RECORDS SUMMARY | 2025-03-17 03:06 | XMS_ITS | Encounter Summary ---
Author Organization [facility] Address [address] [place] [address] Care Team Providers Care Informatics Analyst Name Role Phone Immanuel Bautista MD, Clive Fuller Primary Care Provider Reason for Referral * Auth/Cert (Routine) Specialty Diagnoses / Procedures Referred By Contac t Referred To Contact Cardiology Diagnoses Cardiomyopathy, unspecified type (CMS/HCC) Procedures CL BI V ICD IMPLANT Julieta William MD Phone: tel: fax: [facility] Cardiac Passenger Relations Representative [address] [place] [address] Phone: tel: fax: Referral ID Status Reason Start Date Expiration Date Visits Requested Visits Authorized [id number] Ordering Department To Schedule 12/10/2017 01/10/2019 1 1 Encounter Details Date Type Department Care Team (Late st Contact Info) Description 12/10/2017 Ancillary Orders [facility] Cardiology- [place] [address] [place] [address] Julieta William MD [address] 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 Medtronic BiV/ICD Implant 2. Medtronic Dual Chamber Pacemaker Explant 3. Contrast Venography 4. Left Subclavian Vein Access 5. Device Interrogation 6. Capping of Right Ventricular Pacemaker Lead 7. Conscious Sedation 8. Fluoroscopy with Interpretation Operators: 1. Julieta William MD, [facility], [facility] - Clinical Cardiac Electrophysiology Indication: 82 y/o WM with h/o IDCM, NYHA Class II HF, CAD, CABG, TAVR, CHB (100% V-pacing), Pacemaker, and EF < 35% despite OMT > 3 months presents for a BiV/ICD upgrade for both primary prevention and cardiac resynchronization therapy. Procedure Description: After the patient was informed and consented in regards to the risks, benefits, and alternatives to the procedure, the patient was brought to the EP lab in a fasting, non-sedated state. Conscious sedation was administered under my supervision with fentanyl and versed. Contrast injection of the left subclavian vein was performed, which was patent but did have area of stenosis. After appropriate antiseptic prep and with serena-operative antibiotics infusing and using local anesthesia, cutdown to the deltopectoral fascia was performed using blunt dissection and electrocautery. The old generator was removed from the pocket but left connected to the leads to allow for pacing. Access was obtained via the left subclavian vein. A subcutaneous pocket was fashioned. Under fluoroscopic guidance, the HV RV lead was placed in a RV apical position. The lead was sutured with ethabond. At this point, attention was turned towards implanting of the LV lead. A Takepin Extended Hook sheath was passed into the heart over a J-wire. Through the sheath, a nonsteerable decapolar CS catheter was used to cannulate the coronary sinus. The system was then advanced into the coronary sinus and the CS catheter was subsequently removed. A Valentine catheter was then placed through the sheath and contrast venography was performed outlining the main body of the coronary sinus and its branches. There were a paucity of branches and only a MCV and a large anterolateral branch that was available. The LV lead was placed in the anterolateral vessel. The sheath was then removed and the lead was secured with ethabond. The pocket was irrigated with antibiotic/saline solution. The leads were then connected to the new generator. The Old RV pacemaker lead was capped and secured with ethabond suture. The pacing parameters were tested as described below. The new generator was placed in the pocket. DFT was not performed due to severity of co-morbidities and advanced age. The pocket was closed with multiple layers of absorbable suture and steri-strips with a sterile dressing were applied. After the procedure, the patient was returned to the observation area with routine post operative antibiotics and analgesia. EBL = < 30 cc. Conscious sedation time = 1003 and end time = 1114. Device Model: Medtronic Viva Quad XT DISTRIBUTION DRIVER-D [id number] ATRIAL Lead: QUINCY [id number] Pacing Threshold: 1.0V @ 0.4ms Impedance: 342 ohms P wave: 1.0 mV RIGHT VENTRICULAR Lead: T [id number] Pacing Threshold: 0.75V @ 0.4ms Impedance: 399 ohms R wave: Paced LEFT VENTRICULAR Lead: QUINCY [id number]/[id number] Pacing Threshold: 0.75V @ 0.4ms Impedance: 456 ohms R wave: Paced Complications: None Summary: 1. Successful BiV/ICD Upgrade 2. Stenotic Left Subclavian Vein Julieta William MD, FAC, RS Clinical Cardiac Electrophysiology Take Off Man of Clinical Medicine [facility] Julieta William MD FLUOROSCOPY ORDERABLES Final Result [facility] documented in this encounter Visit Diagnoses Diagnosis Cardiomyopathy, unspecified type (CMS/HCC) Ischemic cardiomyopathy- Primary Other specified forms of chronic ischemic heart disease Cardiomyopathy, unspecified type (CMS/HCC) documented in this encounter Care Teams Informatics Analyst Relationship Specialty Start Date End Date Clive Gambino Jr., MD [address] [place] [address] PCP - General 08/19/07 documented as of this encounter
--- OUTSIDE RECORDS SUMMARY | 2025-03-17 03:06 | XMS_ITS | Encounter Summary ---
Author Organization [facility] Address [address] [place] [address] Care Team Providers Care Demurrage Clerk Name Role Phone Immanuel Bautista MD, Clive Fuller Primary Care Provider Encounter Details Date Type Department Care Team (Latest Contact Info) Description 03/11/2000 Outpatient Historical [facility] Pure hypercholesterolem (Primary Dx); Unspecified essential hypertension; Encounter for long-term (current) use of other medications Social History Tobacco Use Types Packs/Day Years Used Date Smoking Tobacco: Never Assessed Sex and Gender Information Value Date Recorded Sex Assigned at Not on file 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
--- OUTSIDE RECORDS SUMMARY | 2025-03-17 03:06 | XMS_ITS | Encounter Summary ---
Author Organization [facility] Address [address] [place] [address] Care Team Providers Care Family Medicine Physician Name Role Phone Immanuel Bautista MD, Clive Fuller Primary Care Provider Encounter Details Date Type Department Care Team (Latest Contact Info) Description 01/06/2003 [facility] [address] [place] [address] [place] [address] Alejandro Alejo MD NO ADDRESS ON FILE PREOP CARDIOVASC EXAM (Primary Dx) Social History Tobacco Use Types Packs/Day Years Used Date Smoking Tobacco: Never Assessed Sex and Gender Information Value Date Recorded Sex Assigned at Not on file 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
--- OUTSIDE RECORDS SUMMARY | 2025-03-17 03:06 | XMS_ITS | Encounter Summary ---
Author Organization [facility] Address [address] [place] [address] Care Team Providers Care Rural Carrier Associate Name Role Phone Immanuel Bautista MD, Clive Fuller Primary Care Provider Encounter Details Date Type Department Care Team (Latest Contact Info) Description 08/17/2005 Outpatient Historical [facility] Cardiology Ancillary Services-[place] [address] [place] [address] CORON ATHEROSCL [place] CORON VESSEL (Primary Dx); PRIM CARDIOMYOPATHY NEC (CMS/HCC) Social History Tobacco Use Types Packs/Day Years Used Date Smoking Tobacco: Never Assessed Sex and Gender Information Value Date Recorded Sex Assigned at Not on file 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
--- OUTSIDE RECORDS SUMMARY | 2025-03-17 03:06 | XMS_ITS | Encounter Summary ---
Author Organization [facility] Address [address] [facility] Attn: [place] [address] Care Team Providers Care Load Blocker Name Role Phone Immanuel Bautista MD, Clive Fuller Primary Care Provider Encounter Details Date Type Department Care Team (Late st Contact Info) Description 07/10/2001 Outpatient Historical Elise Jama MD [address] [place] [address] Social History Tobacco Use Types Packs/Day Years Used Date Smoking Tobacco: Never Assessed Sex and Gender Information Value Date Recorded Sex Assigned at Not on file 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
--- OUTSIDE RECORDS SUMMARY | 2025-03-17 03:06 | XMS_ITS | Encounter Summary ---
Author Organization [facility] Address [address] [place] [address] Care Team Providers Care Flight Physician Name Role Phone Immanuel Bautista MD, Clive Fuller Primary Care Provider Reason for Visit * Reason Onset Date Comments Fatigue 12/03/2017 called abou t pts nausea and vomiting. and weakness Encounter Details Date Type Department Care Team (Late st Contact Info) Description 12/03/2017 Telephone [facility] Cardiac Microsoft Exchange Architect [address] [place] [address] Lashell Ramires, RN Fatigue ( called about pts nausea and vomiting. 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 Has been doing well bp and hr stable Appetite good. Awaken this am c nausea and vomited clear liquid. Sat in chair in kitchen Unable to get up. [place] too weak No slurred speech or weakness favoring one side. Answers question. Bp was obtained after trying several times. 116/66 Sr rate 60. Recommend calling ambulance and eval by paramedics. documented in this encounter Plan of Treatment Not on file documented as of this encounter Visit Diagnoses Not on filedocumented in this encounter Care Teams Flight Physician Relationship Specialty Start Date End Date Clive Gambino Jr., MD [address] [place] [phone] PCP - General 08/19/07 documented as of this encounter
--- OUTSIDE RECORDS SUMMARY | 2025-03-17 03:06 | XMS_ITS | Encounter Summary ---
Author Organization [facility] Address [address] [place] [address] Care Team Providers Care Cotton Ginner Helper Name Role Phone Immanuel Bautista MD, Clive Fuller Primary Care Provider Encounter Details Date Type Department Care Team (Latest Contact Info) Description 11/11/2002 Outpatient Historical [facility] Leonard Rom[place] [address] [place] [address] NONTOX UNINODULAR GOITER (Primary Dx) Social History Tobacco Use Types Packs/Day Years Used Date Smoking Tobacco: Never Assessed Sex and Gender Information Value Date Recorded Sex Assigned at Not on file 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
--- OUTSIDE RECORDS SUMMARY | 2025-03-17 03:06 | XMS_ITS | Encounter Summary ---
Author Organization [facility] Address [address] [place] [address] Care Team Providers Care Acetylene Gas Compressor Name Role Phone Immanuel Bautista MD, Clive Fuller Primary Care Provider Encounter Details Date Type Department Care Team (Latest Contact Info) Description 05/15/2000 Outpatient Historical [facility] [address] [phone] Screening for malignant neoplasm of the rectum (Primary Dx) Social History Tobacco Use Types Packs/Day Years Used Date Smoking Tobacco: Never Assessed Sex and Gender Information Value Date Recorded Sex Assigned at Not on file 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
--- OUTSIDE RECORDS SUMMARY | 2025-03-17 03:06 | XMS_ITS | Encounter Summary ---
Author Organization [facility] Address [address] [place] [address] Care Team Providers Care Waste Management Specialist Name Role Phone Immanuel Bautista MD, Clive Fuller Primary Care Provider Encounter Details Date Type Department Care Team (Latest Contact Info) Description 01/13/2003 Outpatient Historical [facility] Cardiovascular Services [id number] [place] [address] Navdeep Montalvo MD [address] [address] [place] [address] CONDUCTION DISORDER NOS (Primary Dx) Social History Tobacco Use Types Packs/Day Years Used Date Smoking Tobacco: Never Assessed Sex and Gender Information Value Date Recorded Sex Assigned at Not on file 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
--- OUTSIDE RECORDS SUMMARY | 2025-03-17 03:06 | XMS_ITS | Encounter Summary ---
Author Organization [facility] Address [address] [place] [address] Care Team Providers Care Dairy Processing Supervisor Name Role Phone Immanuel Buatista MD, Clive Fuller Primary Care Provider Encounter Details Date Type Department Care Team (Latest Contact Info) Description 09/06/2000 Outpatient Historical [facility] Unspecified sinusitis (chronic) (Primary Dx); Acute sinusitis, unspecified Social History Tobacco Use Types Packs/Day Years Used Date Smoking Tobacco: Never Assessed Sex and Gender Information Value Date Recorded Sex Assigned at Not on file 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
--- OUTSIDE RECORDS SUMMARY | 2025-03-17 03:06 | XMS_ITS | Encounter Summary ---
Author Organization [facility] Address [address] [place] [address] Care Team Providers Care Automotive Engineering Technician Name Role Phone Immanuel Bautista MD, Clive Fuller Primary Care Provider Reason for Referral * Outpatient Services (Routine) - Closed Specialty Diagnoses / Procedures Referred By Contac t Referred To Contact Diagnoses Aortic valve stenosis, etiology of cardiac valve disease unspecified Procedures CT CARDIAC CHEST INTERPRETATION Tank Davis MD Phone: tel: fax: Referral ID Status Reason Start Date Expiration Date Visits Re quested Visits Authorized [id number] Closed 10/30/2017 11/30/2018 1 1 Encounter Details Date Type Department Care Team (Late st Contact Info) Description 10/30/2017 Ancillary Orders [facility] Cardiology- [place] [address] [place] [address] Tank Davis MD [address] 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 A 4 mm right lower lobe pulmonary nodule. Low risk individuals with a nodule < 6mm do not require a routine follow up CT. High risk individuals can get an optional CT at 12 months. Nodules < 6 mm do not require routine follow-up, but certain patients at high risk with suspicious nodule morphology, upper lobe location, or both may warrant 12-month follow-up CT. These recommendations do not apply to patients with immunosuppression, or patients with known primary cancer. Fleischner Society guidelines 2017 2. Enlarged mediastinal lymph nodes. In the absence of a known malignancy these are statistically likely to be reactive. Follow-up imaging in 3 months may be of benefit to document stability. 3. Mosaic attenuation. This can be seen with bronchiolitis/small airways disease. [id number] Narrative 10/30/2017 3:[address] CARDIAC CHEST INTERPRETATION; HISTORY: Aortic valve stenosis, etiology of cardiac valve disease unspecified COMPARISON: None. TECHNIQUE: Following uneventful administration of 110 mL Isovue 370 intravenous contrast helical scanning was obtained of the chest, and reviewed in soft tissue and lung algorithm. The patient tolerated the procedure and there were no immediate complications. FINDINGS: LUNGS: Mild right lower lobe reticulation is noted. 4 mm right lower lobe pulmonary nodule on image 417 series 6 is noted. Mild emphysematous changes. Mild mosaic attenuation. No focal consolidation. PLEURA: No pneumothorax or pleural effusion. LYMPH NODES: Enlarged mediastinal lymph nodes are noted. For example an AP window lymph node measures 1 cm in short axis. GREAT VESSELS: Reported by cardiology. HEART: Reported by cardiology. OSSEOUS STRUCTURES: The visualized skeletal structures are intact. UPPER ABDOMEN: Included portions of the upper abdomen are unremarkable. Procedure Note Vishal Ko MD - 10/30/2017 CT CARDIAC CHEST INTERPRETATION; HISTORY: Aortic valve stenosis, etiology of cardiac valve disease unspecified COMPARISON: None. TECHNIQUE: Following uneventful administration of 110 mL Isovue 370 intravenous contrast helical scanning was obtained of the chest, and reviewed in soft tissue and lung algorithm. The patient tolerated the procedure and there were no immediate complications. FINDINGS: LUNGS: Mild right lower lobe reticulation is noted. 4 mm right lower lobe pulmonary nodule on image 417 series 6 is noted. Mild emphysematous changes. Mild mosaic attenuation. No focal consolidation. PLEURA: No pneumothorax or pleural effusion. LYMPH NODES: Enlarged mediastinal lymph nodes are noted. For example an AP window lymph node measures 1 cm in short axis. GREAT VESSELS: Reported by cardiology. HEART: Reported by cardiology. OSSEOUS STRUCTURES: The visualized skeletal structures are intact. UPPER ABDOMEN: Included portions of the upper abdomen are unremarkable. IMPRESSION: 1. A 4 mm right lower lobe pulmonary nodule. Low risk individuals with a nodule < 6mm do not require a routine follow up CT. High risk individuals can get an optional CT at 12 months. Nodules < 6 mm do not require routine follow-up, but certain patients at high risk with suspicious nodule morphology, upper lobe location, or both may warrant 12-month follow-up CT. These recommendations do not apply to patients with immunosuppression, or patients with known primary cancer. Fleischner Society guidelines 2017 2. Enlarged mediastinal lymph nodes. In the absence of a known malignancy these are statistically likely to be reactive. Follow-up imaging in 3 months may be of benefit to document stability. 3. Mosaic attenuation. This can be seen with bronchiolitis/small airways disease. [id number] ORDERABLES Final Result documented in this encounter Visit Diagnoses Diagnosis Aortic valve stenosis, etiology of cardiac valve disease unspecified Aortic valve stenosis, etiology of cardiac valve disease unspecified documented in this encounter Care Teams Automotive Engineering Technician Relationship Specialty Start Date End Date Clive Gambino Jr., MD [address] [place] [phone] PCP - General 08/19/07 documented as of this encounter
--- OUTSIDE RECORDS SUMMARY | 2025-03-17 03:06 | XMS_ITS | Encounter Summary ---
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
--- OUTSIDE RECORDS SUMMARY | 2025-03-17 03:06 | XMS_ITS | Clinical Summary ---
Author Organization [facility] Address [address] Attn: [place] [address] Care Team Providers Care Cathodic Protection Technician Name Role Phone Immanuel Bautista MD, Clive Fuller Primary Care Provider Allergies Active Allergy Reactions Criticality Noted Date Comments Fenofibrate Rash Low 10/30/2017 Levofloxacin Rash Low 10/30/2017 Niacin Rash Low 10/30/2017 Medications lisinopriL (PRINIVIL) 20 mg tablet Take 20 mg by mouth 2 times daily. 9 Active potassium chloride (KLOR-CON) 10 mEq Extended Release tablet Take 10 mEq by mouth 2 times daily with meals. 8 Active furosemide (LASIX) 40 mg tablet Take 40 mg by mouth two times daily, 7 hours apart. 8 Active amLODIPine (NORVASC) 5 mg tablet Take 5 mg by mouth daily. 8 Active nitroglycerin (NITROSTAT) 0.4 mg Tablet, Sublingual Place 1 Tablet (0.4 mg) under tongue every 5 minutes as needed for Chest Pain (Not to exceed 3 doses, notify physician if chest pain not relieved, hold if systolic BP less than or equal to 90 mmHg). 25 Tablet 6 8 Active cholecalciferol , Vitamin D3, (VITAMIN D3) 25 mcg (1,000 unit) Capsule Take 3,000 Units by mouth daily. 8 Active Lycopene 10 mg Capsule Take 10 mg by mouth late in the day. 8 Active dabigatran etexilate (PRADAXA) 75 mg Capsule Take 75 mg by mouth 2 times daily. 8 Active clopidogreL (PLAVIX) 75 mg Tablet Take 1 Tablet (75 mg) by mouth daily. 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 09/05/2017 Dyslipidemia 09/05/2017 Stenosis of carotid artery 09/05/2017 S/P CABG (coronary artery bypass graft) 08/26/19 10 ASHD (arteriosclerotic heart disease) 08/25/2009 Immunizations Immunization Administration Dates Next Due (PNEUMOVAX 23)(50 YRS UP) PN EUMOCOCCAL POLYSACCHARIDE (PPV23) 0.5 ML, IM 04/26/1999 Influenza Seasonal Unspecifi ed Formulation IM 03/24/2017,04/07/2003,04/24/2001,04/26 Social History Tobacco Use Types Packs/Day Years Used Date Smoking Tobacco: Never Smokeless Tobacco: Never Alcohol Use Standard Drinks/Week Comments No 0 (1 standard drink = 0.6 oz pur e alcohol) Sex and Gender Information Value Date Recorded Sex Assigned at Not on file Legal Sex Male 2:25 PM BEREAVEMENT PROGRAM COORDINATOR Gender Identity Not on file Sexual Orientation Not on file Last Filed Vital Signs Vital Sign Reading Time Taken Comments Blood Pressure 126/64 10/29/2018 1:02 PM CDT Pulse 68 10/29/2018 1:02 PM CDT Temperature 36.8 C (98.3 F) 01/07/2018 6:28 AM CDT Respiratory Rate 16 01/07/2018 6:28 AM CDT Oxygen Saturation - - Inhaled Oxygen Concentration - - Weight 83 kg (183 lb) 10/29/2018 1:02 PM CDT Height 175.3 cm (5' 9 ) 10/29/2018 1:02 PM CDT Body Mass Index 27.02 10/29/2018 1:02 PM CDT Plan of Treatment Health Maintenance Due Date Last Done Comments DTAP/TDAP/TD VACCINES (1 - Tdap) 10/05/1954 ZOSTER VACCINE (1 of 2) 10/05/1985 PNEUMOCOCCAL VACCINE 50+ YEA RS (2 of 2 - PCV) 04/26/2000 04/26/1999 RSV VACCINE (60+ or ) (1 - 1-dose 75+ series) 10/05/2010 INFLUENZA VACCINE (#1) 2025 7, 04/07/2003, 04/24/2001, Additional history exists Medical Devices Implanted Type Area Cutter V Groove Device Identifier Shelf Expiration Date Model / Serial / Lot Defibrillator- 01/06/2018 Implanted:Qty: 1 on 01/06/2018 by Julieta William MD Defibrillator 12/05/2018 / [id number] / Lv Lead-01/06/2018 Implanted:Qty: 1 on 01/06/2018 by Julieta William MD Lead 08/13/2019 / [id number] / Rv Lead-01/06/2018 Implanted:Qty: 1 on 01/06/2018 by Julieta William MD Lead 11/13/2019 / [id number] / Insurance Care Teams Cathodic Protection Technician Relationship Specialty Start Date End Date Clive Gambino Jr., MD [facility] [place] [phone] PCP - General 08/19/07
--- OUTSIDE RECORDS SUMMARY | 2025-03-17 03:06 | XMS_ITS | Encounter Summary ---
Author Organization [facility] Address [address] [facility] Attn: [place] [address] Care Team Providers Care Screw Cutter Name Role Phone Immanuel Bautista MD, Clive Fuller Primary Care Provider Encounter Details Date Type Department Care Team (Late Contact Info) Description 04/17/2001 Outpatient Historical Clive Gambino Jr., MD [address] [place] [address] Social History Tobacco Use Types Packs/Day Years Used Date Smoking Tobacco: Never Assessed Sex and Gender Information Value Date Recorded Sex Assigned at Not on file Legal Sex Male 2:37 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
--- OUTSIDE RECORDS SUMMARY | 2025-03-17 03:06 | XMS_ITS | Encounter Summary ---
Author Organization [facility] Address [address] [place] [address] Care Team Providers Care Manager Pest Name Role Phone Immanuel Bautista MD, Clive Fuller Primary Care Provider Encounter Details Date Type Department Care Team (Latest Contact Info) Description 04/29/2000 Outpatient Historical [facility] Routine medical exam (Primary Dx); Screening for other and unspecified endocrine, nutritional, metabolic and immunity disorders; Special screening for malignant neoplasms of other sites; Screening for nephropathy Social History Tobacco Use Types Packs/Day Years Used Date Smoking Tobacco: Never Assessed Sex and Gender Information Value Date Recorded Sex Assigned at Not on file 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 Gender Identity Not on file Sexual Orientation Not on file documented as of this encounter Plan of Treatment Not on file documented as of this encounter Visit Diagnoses Diagnosis Routine medical exam- Primary Routine general medical examination at a health care facility Screening for other and unspecified endocrine, nutritional, metabolic and immunity disorders Special screening for malignant neoplasms of other sites Screening for nephropathy documented in this encounter Care Teams Manager Pest Relationship Specialty Start Date End Date Clive Gambino Jr., MD [address] [place] [phone] PCP - General 08/19/07 documented as of this encounter
--- OUTSIDE RECORDS SUMMARY | 2025-03-17 03:06 | XMS_ITS | Encounter Summary ---
Author Organization [facility] Address [address] [place] [address] Care Team Providers Care Risk Prevention Engineer Name Role Phone Immanuel Bautista MD, Clive Fuller Primary Care Provider Encounter Details Date Type Department Care Team (Latest Contact Info) Description 01/13/2003 Outpatient Historical [facility] Cardiology- [place] [address] [place] [address] PREMATURE BEATS NEC (Primary Dx); HYPERTENSION NOS; Pure hypercholesterolem; Preop cardiovascular exam Social History Tobacco Use Types Packs/Day Years Used Date Smoking Tobacco: Never Assessed Sex and Gender Information Value Date Recorded Sex Assigned at Not on file 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
--- OUTSIDE RECORDS SUMMARY | 2025-03-17 03:06 | XMS_ITS | Encounter Summary ---
Author Organization [facility] Address [address] [place] [address] Care Team Providers Care Compacting Machine Operator/Tender Name Role Phone Immanuel Bautista MD, Clive Fuller Primary Care Provider Encounter Details Date Type Department Care Team (Latest Contact Info) Description 04/19/2000 Outpatient Historical [facility] Other and unspecified hyperlipidemia (Primary Dx); Unspecified essential hypertension Social History Tobacco Use Types Packs/Day Years Used Date Smoking Tobacco: Never Assessed Sex and Gender Information Value Date Recorded Sex Assigned at Not on file 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
--- OUTSIDE RECORDS SUMMARY | 2025-03-17 03:06 | XMS_ITS | Encounter Summary ---
Author Organization [facility] Address [address] [place] [address] Care Team Providers Care Installation And Repair Technician Name Role Phone Immanuel Bautista MD, Clive Fuller Primary Care Provider Encounter Details Date Type Department Care Team (Latest Contact Info) Description 03/21/2001 Outpatient Historical [facility] Pure hypercholesterolem (Primary Dx); Other and unspecified hyperlipidemia Social History Tobacco Use Types Packs/Day Years Used Date Smoking Tobacco: Never Assessed Sex and Gender Information Value Date Recorded Sex Assigned at Not on file 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
--- OUTSIDE RECORDS SUMMARY | 2025-03-17 03:06 | XMS_ITS | Encounter Summary ---
Author Organization [facility] Address [address] [place] [address] Care Team Providers Care Transition Manager Name Role Phone Immanuel Bautista MD, Clive Fuller Primary Care Provider Encounter Details Date Type Department Care Team (Latest Contact Info) Description 04/17/2001 Outpatient Historical [facility] Pure hypercholesterolem (Primary Dx); Other and unspecified hyperlipidemia Social History Tobacco Use Types Packs/Day Years Used Date Smoking Tobacco: Never Assessed Sex and Gender Information Value Date Recorded Sex Assigned at Not on file 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
--- OUTSIDE RECORDS SUMMARY | 2025-03-17 03:06 | XMS_ITS | Encounter Summary ---
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
--- OUTSIDE RECORDS SUMMARY | 2025-03-17 03:06 | XMS_ITS | Encounter Summary ---
Author Organization [facility] Address [address] [place] [address] Care Team Providers Care Long Filler Cigar Roller Machine Name Role Phone Immanuel Bautista MD, Clive Fuller Primary Care Provider Encounter Details Date Type Department Care Team (Latest Contact Info) Description 07/22/2000 Outpatient Historical [facility] Unspecified hypothyroidism (Primary Dx); Pure hypercholesterolem; Unspecified essential hypertension; Inhibited sex excitement Social History Tobacco Use Types Packs/Day Years Used Date Smoking Tobacco: Never Assessed Sex and Gender Information Value Date Recorded Sex Assigned at Not on file 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 Gender Identity Not on file Sexual Orientation Not on file documented as of this encounter Plan of Treatment Not on file documented as of this encounter Visit Diagnoses Diagnosis Unspecified hypothyroidism- Primary Pure hypercholesterolem Pure hypercholesterolemia Unspecified essential hypertension Inhibited sex excitement Psychosexual dysfunction with inhibited sexual excitement documented in this encounter Care Teams Long Filler Cigar Roller Machine Relationship Specialty Start Date End Date Clive Gambino Jr., MD [address] [place] [phone] PCP - General 08/19/07 documented as of this encounter
--- OUTSIDE RECORDS SUMMARY | 2025-03-17 03:06 | XMS_ITS | Encounter Summary ---
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
--- OUTSIDE RECORDS SUMMARY | 2025-03-17 03:06 | XMS_ITS | Clinical Summary ---
Author Organization [facility] Address [address] [place] [address] Phone Care Team Providers Care Pharmaceutical Plant Operator Name Role Phone Immanuel Bautista MD, Clive Fuller Primary Care Provider Allergies Active Allergy Reactions Criticality Noted Date Comments Fenofibrate Rash Low 10/30/2017 Levofloxacin Rash Low 10/30/2017 Niacin Rash Low 10/30/2017 Medications atorvastatin (LIPITOR) 40 mg tablet Take 40 mg by mouth daily . Active CALCIUM CARBONATE (CALCIUM 500 PO) Take by mouth daily. Active levothyroxine (SYNTHROID) 150 mcg Oral tablet Take by mouth daily. Active omega-3 acid ethyl esters (OMACOR) 1 gram Oral Cap Take by mouth 2 times daily. Active triamcinolone acetonide (NASACORT AQ) 55 mcg Both Nostril SprAIndications:Cor onary atherosclerosis of unspecified type of vessel, rampart or graft Administer 1 Donna in each nostril daily. Active cetirizine (ZYRTEC) 10 mg Oral tabletIndications:C oronary atherosclerosis of unspecified type of vessel, rampart or graft Take 10 mg by mouth daily. Active carvedilol (COREG) 6.25 mg Oral tablet Take 1 Tab by mouth 2 times daily with meals. 180 Tab 3 09/13/19 10 Active dabigatran etexilate (PRADAXA) 75 mg Capsule Take 75 mg by mouth 2 times daily. Active amLODIPine (NORVASC) 5 mg tablet Take 5 mg by mouth daily. Active potassium chloride (KLOR-CON) 10 mEq Extended Release tablet Take 10 mEq by mouth 2 times daily with meals. Active furosemide (LASIX) 40 mg tablet Take 40 mg by mouth two times daily, 7 hours apart. 10/28/19 18 Active Lycopene 10 mg Capsule Take 10 mg by mouth late in the day. Active cholecalciferol, Vitamin D3, (VITAMIN D3) 1,000 unit Capsule Take 3,000 Units by mouth daily. Active nitroglycerin (NITROSTAT) 0.4 mg Tablet, Sublingual Place 1 Tablet (0.4 mg) under tongue every 5 minutes as needed for Chest Pain (Not to exceed 3 doses, notify physician if chest pain not relieved, hold if systolic BP less than or equal to 90 mmHg). 25 Tablet 6 11/21/19 18 Active clopidogrel (PLAVIX) 75 mg Tablet Take 1 Tablet (75 mg) by mouth daily. 30 Tablet 11/21/19 18 Active lisinopril (PRINIVIL) 20 mg tablet Take 20 mg by mouth 2 times daily. 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 09/05/2017 Benign hypertension 09/05/2017 Dyslipidemia 09/05/2017 Stenosis of carotid artery 09/05/2017 ASHD (arteriosclerotic heart disease) 08/25/2009 S/P CABG (coronary artery bypass graft) 08/26/19 10 Immunizations Immunization Administration Dates Next Due (PNEUMOVAX 23)(50 YRS UP) PN EUMOCOCCAL POLYSACCHARIDE (PPV23) 0.5 ML, IM 04/26/1999 Influenza Seasonal Unspecifi ed Formulation IM 03/24/2017,04/07/2003,04/24/2001,04/26 Social History Tobacco Use Types Packs/Day Years Used Date Smoking Tobacco: Never Smokeless Tobacco: Never Tobacco Cessation:Counseling Given: No Alcohol Use Standard Drinks/Week Comments No 0 (1 standard drink = 0.6 oz pur e alcohol) Sex and Gender Information Value Date Recorded Sex Assigned at Not on file 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 Gender Identity Not on file Sexual Orientation Not on file Last Filed Vital Signs Vital Sign Reading Time Taken Comments Blood Pressure 126/64 10/29/2018 1:02 PM CDT Pulse 68 10/29/2018 1:02 PM CDT Temperature 36.8 C (98.3 F) 01/07/2018 6:28 AM CDT Respiratory Rate 16 01/07/2018 6:28 AM CDT Oxygen Saturation 98% 01/07/2018 6:28 AM CDT Inhaled Oxygen Concentration - - Weight 83 [...] history exists Medical Devices Implanted Type Area Assistant Engineer Device Identifier Shelf Expiration Date Model / Serial / Lot Defibrillator- 01/06/2018 Implanted:Qty: 1 on 01/06/2018 by Julieta William MD Defibrillator 12/05/2018 / [id number] / Rv Lead-01/06/2018 Implanted:Qty: 1 on 01/06/2018 by Julieta William MD Lead 11/13/2019 / [id number] / Lv Lead-01/06/2018 Implanted:Qty: 1 on 01/06/2018 by Julieta William MD Lead 08/13/2019 / [id number] / Insurance MEDICARE PART A AND B [facility] Advance Directives For more information, please contact: [phone] * Full Code (Latest Code Status on File) Date Activated Date Inactivated Comments 01/06/2018 11:37 AM 01/07/2018 11:08 AM * Full Code Date Activated Date Inactivated Comments 11/19/2017 10:35 AM 11/20/2017 1:43 PM * Full Code Date Activated Date Inactivated Comments 11/19/2017 6:02 AM 11/19/2017 10:35 AM Care Teams Pharmaceutical Plant Operator Relationship Specialty Start Date End Date Clive Gambino Jr., MD [address] [place] [address] PCP - General 08/19/07
--- OUTSIDE RECORDS SUMMARY | 2025-03-17 03:07 | XMS_ITS | Encounter Summary ---
Author Organization [facility] Address [address] [place] [address] Care Team Providers Care Beam Press Operator Name Role Phone Immanuel Bautista MD, Clive Fuller Primary Care Provider Encounter Details Date Type Department Care Team (Latest Contact Info) Description 01/18/2000 Outpatient Historical [facility] Unspecified essential hypertension (Primary Dx); Pure hypercholesterolem Social History Tobacco Use Types Packs/Day Years Used Date Smoking Tobacco: Never Assessed Sex and Gender Information Value Date Recorded Sex Assigned at Not on file 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
--- OUTSIDE RECORDS SUMMARY | 2025-03-17 03:07 | XMS_ITS | Encounter Summary ---
Author Organization [facility] Address [address] [place] [address] Care Team Providers Care Fabric Inspector Name Role Phone Immanuel Bautista MD, Clive Fuller Primary Care Provider Encounter Details Date Type Department Care Team (Latest Contact Info) Description 07/14/2003 Outpatient Historical [facility] Cardiovascular Services [address] [place] [address] Navdeep Montalvo MD [address] [address] [place] [address] CARDIAC DYSRHYTHMIAS NEC (Primary Dx) Social History Tobacco Use Types Packs/Day Years Used Date Smoking Tobacco: Never Assessed Sex and Gender Information Value Date Recorded Sex Assigned at Not on file 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
--- OUTSIDE RECORDS SUMMARY | 2025-03-17 03:07 | XMS_ITS | Encounter Summary ---
Author Organization [employer] [facility] Address [address] [place] [address] Care Team Providers Care Helpdesk Manager Name Role Phone Immanuel Bautista MD, Clive Fuller Primary Care Provider Encounter Details Date Type Department Care Team (Latest Contact Info) Description 03/27/2002 Outpatient Historical [facility] SCREENING-ENDOC/NUT/ MET/IMMUN OTHER (Primary Dx); SCREENING-THYROID DISORDER; SCREENING MAL NEOP-PROSTATE Social History Tobacco Use Types Packs/Day Years Used Date Smoking Tobacco: Never Assessed Sex and Gender Information Value Date Recorded Sex Assigned at Not on file 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
--- OUTSIDE RECORDS SUMMARY | 2025-03-17 03:07 | XMS_ITS | Encounter Summary ---
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
--- OUTSIDE RECORDS SUMMARY | 2025-03-17 03:07 | XMS_ITS | Encounter Summary ---
Author Organization [facility] Address [address] 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
--- OUTSIDE RECORDS SUMMARY | 2025-03-17 03:07 | XMS_ITS | Encounter Summary ---
Author Organization [facility] Address [address] [place] [address] Care Team Providers Care Correctional Supervising Cook Name Role Phone Immanuel Bautista MD, Clive Fuller Primary Care Provider Encounter Details Date Type Department Care Team (Latest Contact Info) Description 05/17/2003 Outpatient Historical [facility] PreAdmission [address] [place] [address] Alejandro Alejo MD NO ADDRESS ON FILE PREOP EXAM OTHER SPECIFIED (Primary Dx) Social History Tobacco Use Types Packs/Day Years Used Date Smoking Tobacco: Never Assessed Sex and Gender Information Value Date Recorded Sex Assigned at Not on file 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
--- OUTSIDE RECORDS SUMMARY | 2025-03-17 03:07 | XMS_ITS | Encounter Summary ---
Author Organization [facility] Address [address] [place] [address] Care Team Providers Care Director Client Services Name Role Phone Immanuel Bautista MD, Clive Fuller Primary Care Provider Encounter Details Date Type Department Care Team (Latest Contact Info) Description 09/06/1999 Outpatient Historical [facility] Skin sensation disturb (Primary Dx); Allergic rhinitis, cause unspecified; Unspecified hypothyroidism Social History Tobacco Use Types Packs/Day Years Used Date Smoking Tobacco: Never Assessed Sex and Gender Information Value Date Recorded Sex Assigned at Not on file 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
--- OUTSIDE RECORDS SUMMARY | 2025-03-17 03:07 | XMS_ITS | Encounter Summary ---
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
--- OUTSIDE RECORDS SUMMARY | 2025-03-17 03:07 | XMS_ITS | Encounter Summary ---
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
--- OUTSIDE RECORDS SUMMARY | 2025-03-17 03:07 | XMS_ITS | Encounter Summary ---
Author Organization [employer] Address [address] [facility] Attn: [place] [address] Care Team Providers Care Shrimp Peeling Machine Operator Name Role Phone Immanuel Bautista MD, Clive Fuller Primary Care Provider Encounter Details Date Type Department Care Team (Late st Contact Info) Description 11/03/2001 Outpatient Historical Elise Jama MD [address] [place] [address] Social History Tobacco Use Types Packs/Day Years Used Date Smoking Tobacco: Never Assessed Sex and Gender Information Value Date Recorded Sex Assigned at Not on file 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
--- OUTSIDE RECORDS SUMMARY | 2025-03-17 03:07 | XMS_ITS | Encounter Summary ---
Author Organization [facility] Address [address] [place] [address] Care Team Providers Care Metal Bonding Worker Name Role Phone Immanuel Bautista MD, Clive Fuller Primary Care Provider Encounter Details Date Type Department Care Team (Latest Contact Info) Description 08/16/2003 Outpatient Historical [facility] Cardiology- [place] [address] [place] [address] HYPERTENSION NOS (Primary Dx); CORON ATHEROSCL [place] CORON VESSEL; Pure hypercholesterolem; PRECORDIAL PAIN Social History Tobacco Use Types Packs/Day Years Used Date Smoking Tobacco: Never Assessed Sex and Gender Information Value Date Recorded Sex Assigned at Not on file 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
--- OUTSIDE RECORDS SUMMARY | 2025-03-17 03:07 | XMS_ITS | Encounter Summary ---
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
--- OUTSIDE RECORDS SUMMARY | 2025-03-17 03:07 | XMS_ITS | Encounter Summary ---
Author Organization [facility] Address [address] [place] [address] Care Team Providers Care Ultrasonic Cleaner Name Role Phone Immanuel Bautista MD, Clive Fuller Primary Care Provider Encounter Details Date Type Department Care Team (Latest Contact Info) Description 07/23/2001 Outpatient Historical [facility] Nuclear Med Services-Quentin Carrillonn [place] [address] [place] [address] GOITER NOS (Primary Dx) Social History Tobacco Use Types Packs/Day Years Used Date Smoking Tobacco: Never Assessed Sex and Gender Information Value Date Recorded Sex Assigned at Not on file 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
--- OUTSIDE RECORDS SUMMARY | 2025-03-17 03:07 | XMS_ITS | Encounter Summary ---
Author Organization [facility] Address [address] [place] [address] Care Team Providers Care Linoleum Mechanic Name Role Phone Immanuel Bautista MD, Clive Fuller Primary Care Provider Encounter Details Date Type Department Care Team (Latest Contact Info) Description 07/21/2003 Outpatient Historical [facility] Gen Spec Surg [place] [address] [facility] [address] [place] [address] TOX MULTNOD GOIT NO BHAVESH (Primary Dx); SURGERY FOLLOWUP, UNSPEC Social History Tobacco Use Types Packs/Day Years Used Date Smoking Tobacco: Never Assessed Sex and Gender Information Value Date Recorded Sex Assigned at Not on file 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
--- OUTSIDE RECORDS SUMMARY | 2025-03-17 03:07 | XMS_ITS | Encounter Summary ---
Author Organization [facility] Address [address] [place] [address] Care Team Providers Care Restaurant Kitchen Manager Name Role Phone Immanuel Bautista MD, Clive Fuller Primary Care Provider Encounter Details Date Type Department Care Team (Latest Contact Info) Description 04/07/2003 Outpatient Historical [facility] Routine medical exam (Primary Dx); SCREENING MAL NEOP-COLON; SCREENING FOR COND NEC; Vaccine for influenza Social History Tobacco Use Types Packs/Day Years Used Date Smoking Tobacco: Never Assessed Sex and Gender Information Value Date Recorded Sex Assigned at Not on file Legal Sex Male 2:37 AM QA ARCHITECT Gender Identity Not on file Sexual Orientation Not on file documented as of this encounter Plan of Treatment Not on file documented as of this encounter Visit Diagnoses Diagnosis Routine medical exam- Primary Routine general medical examination at a health care facility Special screening for malignant neoplasms, colon Screening for other and unspecified genitourinary condition Vaccine for influenza Need for prophylactic vaccination and inoculation against influenza documented in this encounter Care Teams Restaurant Kitchen Manager Relationship Specialty Start Date End Date Clive Gambino Jr., MD [address] [place] [phone] PCP - General 08/19/07 documented as of this encounter
--- OUTSIDE RECORDS SUMMARY | 2025-03-17 03:07 | XMS_ITS | Encounter Summary ---
Author Organization [facility] Address [address] [place] [address] Care Team Providers Care Fundraising Manager Name Role Phone Immanuel Bautista MD, Clive Fuller Primary Care Provider Encounter Details Date Type Department Care Team (Latest Contact Info) Description 11/11/2002 Outpatient Historical [facility] Endocrinology-Saavedra Appling [place] [address] [place] [address] NONTOX MULTINODUL GOITER (Primary Dx) Social History Tobacco Use Types Packs/Day Years Used Date Smoking Tobacco: Never Assessed Sex and Gender Information Value Date Recorded Sex Assigned at Not on file 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
--- OUTSIDE RECORDS SUMMARY | 2025-03-17 03:07 | XMS_ITS | Encounter Summary ---
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
--- OUTSIDE RECORDS SUMMARY | 2025-03-17 03:07 | XMS_ITS | Encounter Summary ---
Author Organization [facility] Address [address] [place] [address] Care Team Providers Care Shrimp Cleaner Name Role Phone Immanuel Bautista MD, Clive Fuller Primary Care Provider Encounter Details Date Type Department Care Team (Latest Contact Info) Description 08/17/2005 Outpatient Historical [facility] Cardiology- [place] [address] [place] [address] PRIM CARDIOMYOPATHY NEC (CMS/HCC) (Primary Dx); PALPITATIONS; PREMATURE BEATS NEC; HYPERTENSION NOS Social History Tobacco Use Types Packs/Day Years Used Date Smoking Tobacco: Never Assessed Sex and Gender Information Value Date Recorded Sex Assigned at Not on file Legal Sex Male 2:37 AM RECREATION FACILITIES SUPERVISOR Gender Identity Not on file Sexual Orientation Not on file documented as of this encounter Plan of Treatment Not on file documented as of this encounter Visit Diagnoses Diagnosis Other primary cardiomyopathies (CMS/HCC)- Primary Other primary cardiomyopathies Palpitations Other premature beats Unspecified essential hypertension documented in this encounter Care Teams Shrimp Cleaner Relationship Specialty Start Date End Date Clive Gambino Jr., MD [address] [place] [phone] PCP - General 08/19/07 documented as of this encounter
--- OUTSIDE RECORDS SUMMARY | 2025-03-17 03:07 | XMS_ITS | Encounter Summary ---
Author Organization [facility] Address [address] [place] [address] Care Team Providers Care Vegetable Grader Name Role Phone Immanuel Bautista MD, Clive Fuller Primary Care Provider Encounter Details Date Type Department Care Team (Latest Contact Info) Description 06/09/2003 Outpatient Historical [facility] [place] [address] [facility] [address] [place] [address] TOX MULTNOD GOIT NO BHAVESH (Primary Dx); SURGERY FOLLOWUP, UNSPEC Social History Tobacco Use Types Packs/Day Years Used Date Smoking Tobacco: Never Assessed Sex and Gender Information Value Date Recorded Sex Assigned at Not on file Legal Sex Male 2:37 AM BLIND EYELETTER Gender Identity Not on file Sexual Orientation Not on file documented as of this encounter Plan of Treatment Not on file documented as of this encounter Visit Diagnoses Diagnosis 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
--- OUTSIDE RECORDS SUMMARY | 2025-03-17 03:07 | XMS_ITS | Encounter Summary ---
Author Organization [facility] Address [address] [place] [address] Care Team Providers Care Document Review Attorney Name Role Phone Immanuel Bautista MD, Clive Fuller Primary Care Provider Encounter Details Date Type Department Care Team (Latest Contact Info) Description 04/26/2003 Outpatient Historical [facility] [place] [address] [facility] [address] [place] [address] NONTOX MULTINODUL GOITER (Primary Dx) Social History Tobacco Use Types Packs/Day Years Used Date Smoking Tobacco: Never Assessed Sex and Gender Information Value Date Recorded Sex Assigned at Not on file 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
--- OUTSIDE RECORDS SUMMARY | 2025-03-17 03:07 | XMS_ITS | Encounter Summary ---
[facility] [address] [place] [address] Care Team Providers Care Catalytic Converter Operator Name Role Phone Immanuel Bautista MD, Clive Fuller Primary Care Provider Encounter Details Date Type Department Care Team (Late st Contact Info) Description 02/10/2003 Inpatient Historical HIS IN BED German Catherine MD NO ADDRESS ON FILE CORON ATHEROSCL [place] CORON VESSEL (Primary Dx) Social History Tobacco Use Types Packs/Day Years Used Date Smoking Tobacco: Never Assessed Sex and Gender Information Value Date Recorded Sex Assigned at Not on file Legal Sex Male 2:37 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
--- OUTSIDE RECORDS SUMMARY | 2025-03-17 03:07 | XMS_ITS | Patient Health Record ---
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 Lizbeth Berrios Primary Care Provider Clive Knight [phone] Allergies Allergen (clinical drug ingredient) Drug/Non Drug Allergy documented on EMR Reaction Allergy Type Onset Date Status Levaquin Unknown Drug Allergy Active Niaspan rash Drug Allergy Active fenofibrate Tricor Unknown Drug Allergy Activ e Reason For Referral No Information Medications Medication SIG (Take, Route, Frequency, Duration) Notes Start Date End Date Status Claritin 10 MG Tablet 1 tablet Orally On ce a day Active Pepcid 20 MG Tablet one in the AM and one in the PM Orally twice a day; Duration: 30 day(s) Active Cefdinir 300 MG Capsule one capsule Oral ly twice daily for 7 days; Duration: 7 days Active [place] 3 1000 MG Capsule 1/2 capsule Oral ly Once a day Active Lycopene 10 MG Capsule 1 capsule with a meal Orally Once a day Active Spironolactone 25 MG Tablet TAKE 1 TABLET BY MOUTH ONCE DAILY IN THE MORNING; Duration: 30 Active Methenamine Hippurate 1 GM Tablet 1 tablet Orally Twice a day Active Euthyrox 150 MCG Tablet TAKE 1 TABLET BY MOUTH ONCE DAILY FOR 90 DAYS (TAKE THIS MEDICATION SEPERATE FROM OTHER MEDICINES,VITAMINS, AND FOOD); Duration: 90 Active Potassium Chloride ER 20 MEQ Tablet Extended Release 1 tablet with food Orally Twice a day; Duration: 90 days Active Nitroglycerin 0.4 MG Tablet Sublingual Dissolve 1 tablet(s) under the tongue may repeat every 5 minutes. Maximum of 3 doses in 15 minutes Sublingual; Duration: 30 12/05/2011 Active Atorvastatin Calcium 40 MG Tablet TAKE 1 TABLET BY MOUTH ONCE DAILY AT BEDTIME; Duration: 90 Active Tamsulosin HCl 0.4 MG Capsule Take 1 capsule by mouth once daily at bedtime; Duration: 30 Active Vitamin D 25 MCG (1000 UT) Tablet 1 tablet Orally Once a day Active Vitamin C 1000 MG Tablet 1 tablet Orally twice daily Active Furosemide 40 MG Tablet 2 tablet daily a t 8am and 1 at 2pm Orally daily; Duration: 90 days dose increase Active Nasacort AQ 55 mcg AEROSOL, SPRAY (GRAM) 2 spray(s) in each nostril daily NASAL; Duration: 30 11/30/2013 Active Immunizations Vaccine Route Administration Date Status Comme nts FLUAD IM Intramuscular 04/03/2021 Administered Flu vaccine no Preserv 3 and > Unknown 04/18/2009 Administered Flu vaccine no Preserv 3 and > IM Intramuscular 03/28/2010 Administered Flu vaccine no Preserv 3 and > Unknown 04/03/2011 Administered Flu vaccine no Preserv 3 and > Unknown 04/15/2012 Administered Flu vaccine no Preserv 3 and > Unknown 03/31/2013 Administered COVID-19 Vaccine (Moderna) Dose #3 Unknown 05/23/2021 Administered COVID-19 Vaccine (Moderna) Dose #2 Unknown 09/28/2020 Administered COVID-19 Vaccine (Moderna) Dose #1 Unknown 08/30/2020 Administered Afluria Quadrivalent Influenza Vaccine 3 years+ IM Intramuscular 05/04/2020 Administered Social History Tobacco Use: Social History Observation Description Date Details (start date - stop date) Never Smoker NA - NA Social History Drugs/Alcohol: Social Info Question Answer Notes Alcohol Screen (Audit-C) Did you have a drink containing alcohol in the past year? No Points 0 Interpretation Negative Drugs Have you used drugs other than those for medical reasons in the past 12 months? No Household: Social Info Question Answer Notes Household Marital status: Number of adults in household: 2 Number of children in household: 0 Tobacco Use: Social Info Question Answer Notes xTobacco Use/Smoking Are you a nonsmoker Additional Details Category Social Info Options Details Drugs/Alcohol: Do you smoke marijuana? De nies Do you drink alcohol? 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) Active confirmed Problem Lower urinary tract symptoms due to benign prostatic hypertrophy (59468067176917) Benign prostatic hyperplasia with lower urinary tract symptoms (N40.1) Active confirmed Problem Essential hypertension (25814691) Essential hypertension (I10) Active confirmed Problem Iron deficiency anemia (59818012) Iron deficiency anemia, unspecified iron deficiency anemia type (D50.9) Active confirmed Problem Bradycardia (72860236) Bradycardia (R00.1) Active confirmed Problem Hypothyroidism (93505909) Hypothyroidism (E03.9) Active confirmed Problem Hypercholesterolemia (20283960) Hypercholesterolemia (E78.00) Active confirmed Problem Hypertension (87064160) Hypertension (I10) Active confirmed Problem Heart failure (65940557) Chronic congestive heart failure, unspecified heart failure type (I50.9) Active confirmed Problem Atrial fibrillation (16447926) Atrial fibrillation (427.31) 2014 Active confirmed [id number]- Problem Hypercholesterolemia (40438223) Hypercholesterolemia (272.0) 2009 Active confirmed [id number]- Problem Congestive heart failure (44012223) Congestive heart failure (428.0) 2015 Active confirmed [id number]- Problem 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 Active confirmed [id number]- Problem 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 Active confirmed [id number]- Problem Mixed hyperlipidemia (600017500) Mixed hyperlipidemia (272.2) 2006 Problem resolved confirmed [id number]- Problem Gout (44158983) Gout, unspecifie d (274.9) 2017 Problem resolved confirmed [id number]- Problem Hypocalcemia (9657300) Hypocalcemia (275.41) 2002 Problem resolved confirmed [id number]- Problem Anemia (555073598) Unspecified a nemia (285.9) 2018 Problem resolved confirmed [id number]- Problem Acute non-suppurativ e otitis media - serous (042091261) Acute serous otitis media (381.01) 2011 Problem resolved confirmed [id number]- Problem Congestive heart failure (72618500) Congestive heart failure, unspecified (428.0) 2018 Problem resolved confirmed [id number]- Problem Actinic keratosis (585775390) Actinic keratosis (702.0) 2005 Problem resolved confirmed [id number]- Problem Pressure ulcer of buttock (926949840) Pressure ulcer, buttock (707.05) 2017 Problem resolved confirmed [id number]- Problem Shortness of breath (417002307) Shortness of breath (786.05) 2011 Problem resolved confirmed [id number]- Problem Basal cell carcinoma of face (714405762) Basal cell carcinoma of skin of other and unspecified parts of face (173.31) 2014 Problem resolved confirmed [id number]- Problem Screening for malignant neoplasm of prostate (241095371) Screening for prostate cancer (V76.44) 2007 Problem resolved confirmed [id number]- Problem Anemia (925393726) Anemia, unspe cified (285.9) 2017 Problem resolved confirmed [id number]- Problem Rash (413024199) Rash (782.1) 2007 Problem resolved confirmed [id number]- Problem Dizziness (718920768) Dizziness (780.4) 0 2010 Problem resolved confirmed [id number] [id number]- Problem Iron deficiency anemia (73447248) Iron deficiency anemia, unspecified (280.9) 2018 Problem resolved confirmed [facility] [id number]- Problem Vaccine-other combinations (V06.8) 2006 Problem resolved confirmed [id number]- Problem Dry skin (11497546) Dry skin (701.8) 02/23 Problem resolved confirmed [id number]- Problem Generalized pain (41073497) Generalized pain (780.99) 2016 Problem resolved confirmed [id number]- Problem History of thyroidectomy (736584881) History of thyroidectomy (V15.2) 2003 Problem resolved confirmed [id number]- Problem Hypotension (55065100) Hypotension, other (458.8) 2017 Problem resolved confirmed [id number]- Problem Laceration on th e finger(s) (883.0) 2014 Problem resolved confirmed [id number]- Problem Shortness of breath (371572116) Shortness of breath (786.09) 2016 Problem resolved confirmed [id number]- Problem Allergic rhinitis caused by pollen (89780616) Allergies (477.0) 2009 Problem resolved confirmed [id number]- Problem 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) Aortic stenosis (396.0) 2014 Problem resolved confirmed [facility] [id number]- Problem Inflamed seborrheic keratosis (552032685) Atypical seborrheic keratosis (702.11) 2003 Problem resolved confirmed [id number] [id number]- Problem Disorder of hematopoietic system (79580593) Other abnormal findings on blood examination (790.99) 2016 Problem resolved confirmed [id number]- Problem Disorder of hematopoietic system (51961330) Other abnormal laboratory result on blood (790.99) 2005 Problem resolved confirmed [id number]- Problem Sore throat (223326243) Sore Throat (462) 2007 Problem resolved confirmed [id number]- Problem Drug reaction (950295454) Drug reaction (995.2) 2005 Problem resolved confirmed [facility] [id number]- Problem 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) Elevated homocysteine level (270.4) 2004 Problem resolved confirmed [facility] [id number]- Problem Generalized abdomina l pain (440451161) Generalized abdominal pain (789.07) 2006 Problem resolved confirmed [id number] [id number]- Problem Lab: Used to mat ch unlinked laboratory orders (V92) 2014 Problem resolved confirmed [facility] [id number]- Problem Ear ache (757617059) Ear ache (388.71) 2011 Problem resolved confirmed [facility] [id number]- Problem Mixed hyperlipidemia (143500510) Hypercholesterolemia with hypertriglyceridemia (272.2) 2005 Problem resolved confirmed [facility] [id number]- Problem Hyponatremia (04596431) Hyponatremia (276.1) 2016 Problem resolved confirmed [id number]- Problem Infected abrasio n or friction burn of hip, thigh, leg, and ankle (916.1) 2004 Problem resolved confirmed [id number]- Problem Influenza (3932630) Influenza (487.8) 2005 Problem resolved confirmed [id number]- Problem Influenza immunization (12644336) Influenza immunization (V04.81) 2018 Problem resolved confirmed [facility]11- Problem Pneumonia and influenza (754857163) Influenza, with pneumonia (487.0) 2016 Problem resolved confirmed [facility] 5911- Problem Screening for malignant neoplasm of colon (189186162) Screening for colorectal cancer (V76.49) 2013 Problem resolved confirmed [facility] [id number]- Problem Microalbuminuria (070645439) Microalbuminuria (791.0) 2016 Problem resolved confirmed [facility]- Problem Stiff neck (760002910) stiff neck (781.6) 2016 Problem resolved confirmed [facility]11- Problem Needs influenza immunization (731392796) Vaccination against other viral diseases, Influenza (V04.81) 2007 Problem resolved confirmed [id number]- Problem Electrocardiogram abnormal (389643246) Abnormal EKG (794.31) 2011 Problem resolved confirmed [facility] 5911- Problem Coronary artery disease (44360140) CAD (414.01) 2008 Problem resolved confirmed [facility]- Problem Coronary artery disease (09082039) Coronary artery disease (414.01) 2004 Problem resolved confirmed [facility]11- Problem Polycythemia vera (258647693) Polycythemia vera (238.4) 2012 Problem resolved confirmed [facility] 5911- Problem Gallbladder calculus (334219646) Cholelithiasis, without mention of obstruction (574.20) 2006 Problem resolved confirmed [facility] 5911- Problem Mixed hyperlipidemia (566771102) Combined hyperlipidemia (272.4) 2006 Problem resolved confirmed [facility] [id number]- Problem Thyroid function tests abnormal (076269364) Abnormal thyroid findings (794.5) 2003 Problem resolved confirmed [facility] [id number]- Problem Calculus of bile rita t with acute cholecystitis without obstruction (12704100) Acute choledocholithiasis (574.30) 2006 Problem resolved confirmed [facility]11- Problem Coronary arteriosclerosis (disorder) (65497647) ASHD (414.01) 2005 Problem resolved confirmed [facility]- Problem Candidal intertrigo (040006744) Candidal intertrigo (112.3) 2008 Problem resolved confirmed [facility]- Problem Gallstones (941758439) Gallstones (574.20) 2006 Problem resolved confirmed [facility]- Problem 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 Problem resolved confirmed [facility] 5911- Problem Multiple joint pain (92606006) Joint pain, multiple sites (719.49) 2005 Problem resolved confirmed [facility] 5911- Problem Acquired hypothyroidism (722976182) Acquired hypothyroidism (244.8) 2009 Problem resolved confirmed [facility] 5911- Problem Disorder of lipid metabolism (716933582) Low HDL level (272.9) 2006 Problem resolved confirmed [facility]- Problem Swollen lymph nodes (57462392) Swollen lymph nodes (785.6) 2018 Problem resolved confirmed [facility] 5911- Problem Nausea and vomiting (34674250) Nausea and vomiting (787.01) 2017 Problem resolved confirmed [facility] 5911- Problem Localized, primary osteoarthritis of the ankle and/or foot (055478067) 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 Problem resolved confirmed [facility]- Problem Osteoporosis (74776557) Osteoporosis (733.09) 2003 Problem resolved confirmed [facility]11- Problem Dry skin (74767325) Dry skin (701.1) 12/23 Problem resolved confirmed [facility] 5911- Problem Essential hypertension (32918651) Essential hypertension (401.1) 2004 Problem resolved confirmed [facility] 5911- Problem Impacted cerumen (47169799) External cerumen impaction (380.4) 2016 Problem resolved confirmed [facility] 5911- Problem Hypertension (13755853) HTN (401.1) 2004 Problem resolved confirmed [facility] 5911- Problem Mitral valve insufficiency (32132905) Mitral valve insufficiency (424.0) 2014 Problem resolved confirmed [facility]- Problem Syncope (084030887) Syncope (780.2) 02/28 Problem resolved confirmed [facility]- Problem Electrocardiogram abnormal (472001509) Prolonged Q-T interval (794.31) 2014 Problem resolved confirmed [facility]- Plan Of Treatment No Information Insurance Providers Payer Name Payer Address Payer Phone Subscriber Number Group Number Insured Name Patient Relationship to Insured Coverage Start Date Coverage End Date [place] [address] [address] [place] [address] [id number] Tank Saavedra Self - patient is the insured [facility] [employer] [address] [address] [place] [address] [phone] [id number] Tank Saavedra Self - patient is the insured Medical (General) History Medical History History ICD Code Hypertension Hypercholesterolemia CHF Aortic stenosis Atrial fibrillation Pacemaker; Medtronic Viva Quad Hypothyroidism Osteoarthritis Surgical History Surgery Date(Month/Year) Coronary Artery Bypass Graft Cataract removal; bilateral Pacemaker implantation; Medtronic Viva Q uad 01/06/2018 Hospitalization History Reason Date(Month/Year) UTI, COVID, received blood transfusion 0 01/2021 GI bleed 10/2020 bacteria in blood 03/2020 Surgeries
--- OUTSIDE RECORDS SUMMARY | 2025-03-17 03:07 | XMS_ITS | Patient Health Record ---
Author Organization [employer] y, [facility] ([facility]) Address [address] [place] [address] Care Team Providers Care Medical Psychotherapist Name Role Phone Lizbeth Berrios Primary Care Provider LAILA Cole Unavailable [phone] Allergies Allergen (clinical drug ingredient) Drug/Non Drug Allergy documented on EMR Reaction Allergy Type Onset Date Status Levaquin Unknown Drug Allergy Active Niaspan rash Drug Allergy Active fenofibrate Tricor Unknown Drug Allergy Activ e fenofibrate Fenofibrate allergy Drug Allergy Act cinthya Reason For Referral No Information Medications Medication SIG (Take, Route, Frequency, Duration) Notes Start Date End Date Status Methenamine Hippurate 1 GM 1 tablet Orally Twice a day Active Claritin 10 MG 1 tablet Orally Once a day Active Tamsulosin HCl 0.4 MG Take 1 capsule by mouth once daily at bedtime; Duration: 30 Active Pepcid 20 MG one in the AM and one in the PM Orally twice a day; Duration: 30 day(s) Not-Taking Potassium Chloride ER 20 MEQ 1 tablet with food Orally Twice a day; Duration: 90 days Not-Taking Vitamin C 1000 MG 1 tablet Orally twice daily Active Cefdinir 300 MG one capsule Orally twice daily for 7 days; Duration: 7 days Not-Taking Nasacort AQ 55 mcg 2 spray(s) in each nostril daily NASAL; Duration: 30 *Reorder from [facility] for eRx and Interaction Alerts* 11/30/2013 Not-Taking Euthyrox 150 MCG TAKE 1 TABLET BY MOUTH ONCE DAILY FOR 90 DAYS (TAKE THIS MEDICATION SEPERATE FROM OTHER MEDICINES,VITAMI NS, AND FOOD); Duration: 90 Not-Taking Entresto 49-51 MG 1 tablet Orally Twice a day Active Lycopene 10 MG 1 capsule with a meal Orally Once a day Active Levothyroxine Sodium 150 MCG 1 tablet in the morning on an empty stomach Orally Once a day 05/29/2023 Active Vitamin D 25 MCG (1000 UT) 1 tablet Orally Once a day Active Spironolactone 25 MG TAKE 1 TABLET BY MOUTH ONCE DAILY IN THE MORNING; Duration: 30 Active Furosemide 40 MG 2 tablet daily at 8am and 1 at 2pm Orally daily; Duration: 90 days dose increase Active Nitroglycerin 0.4 MG Dissolve 1 tablet(s) under the tongue may repeat every 5 minutes. Maximum of 3 doses in 15 minutes Sublingual; Duration: 30 12/05/2011 Active Atorvastatin Calcium 40 MG TAKE 1 TABLET BY MOUTH ONCE DAILY AT BEDTIME; Duration: 90 Active Levering 3 1000 MG 1/2 capsule Orally Once a day Active Immunizations Vaccine Route Administration Date Status Comme nts Afluria Quadrivalent influenza vaccube IM Intramuscular 05/04/2020 Administered COVID-19 Vaccine (Moderna) Dose #1 Unknown 08/30/2020 Administered Immunization Given by from source eCW:: COVID-19 Vaccine (Moderna) Dose #2 Unknown 09/28/2020 Administered Immunization Given by from source eCW:: COVID-19 Vaccine (Moderna) Dose #3 Unknown 05/23/2021 Administered Immunization Given by from source eCW:: Flu vaccine no Preserv 3 and > Unknown 04/18/2009 Administered Flu vaccine no Preserv 3 and > IM Intramuscular 03/28/2010 Administered Flu vaccine no Preserv 3 and > Unknown 04/03/2011 Administered Flu vaccine no Preserv 3 and > Unknown 04/15/2012 Administered Flu vaccine no Preserv 3 and > Unknown 03/31/2013 Administered FLUAD IM Intramuscular 04/03/2021 Administered Social History Tobacco Use: Social History Observation Description Date Details (start date - stop date) Never Smoker NA - NA Tobacco Control (Standard) Question Answer Notes Tobacco use: Nonsmoker AUDIT-C (Standard) Question Answer Notes Did you have a drink containing alcohol in the p ast year? 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) Active confirmed Problem Phimosis (632911919) Phimosis (N47.1) Active co nfirmed Problem Incision of bladder (49099491) Encounter for attention to cystostomy (Z43.5) Active confirmed Problem Essential hypertension (87956573) Essential hypertension (I10) Active confirmed Problem Hypercholesterolemia (89974365) Hypercholesterolemia (E78.00) Active confirmed Problem Lower urinary tract symptoms due to benign prostatic hypertrophy (49670162111568) Benign prostatic hyperplasia with lower urinary tract symptoms (N40.1) Active confirmed Problem Lower urinary tract symptoms due to benign prostatic hypertrophy (21998980893061) Benign localized hyperplasia of prostate with urinary obstruction (N40.1) Active confirmed Problem Iron deficiency anemia (71379023) Iron deficiency anemia, unspecified iron deficiency anemia type (D50.9) Active confirmed Problem Chronic retention of urine (131636490) 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) Active confirmed Problem Benign prostatic hyperplasia (681373944) BPH (benign prostatic hyperplasia) (N40.0) Active confirmed Problem Heart failure (16923727) Chronic congestive heart failure, unspecified heart failure type (I50.9) Active confirmed Problem Encounter for Fo virgen catheter replacement (Z46.6) Active confirmed Problem Catheterization of urinary bladder (939877557) Wang catheter in place (Z96.0) Active confirmed Problem Hypertension (09614182) Hypertension (I10) Active confirmed Problem Bradycardia (36828059) Bradycardia (R00.1) Active confirmed Problem Hypothyroidism (13141537) Hypothyroidism (E03.9) Active confirmed Problem History of transurethral resection of prostate (166705835) Status post transurethral resection of prostate (Z90.79) Active confirmed Problem Epididymo-orchitis (876889848) Epididymoorchitis (N45.3) Active confirmed Problem Recurrent urinary tract infection (365221433) Recurrent UTI (N39.0) Active confirmed Problem Atrial fibrillation (75268312) Atrial fibrillation (427.31) 2014 Active confirmed [id number]- Problem 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 Active confirmed [id number]- Problem Congestive heart failure (14593379) Congestive heart failure (428.0) 2015 Active confirmed [id number]- Problem Hypercholesterolemia (71723642) Hypercholesterolemia (272.0) 2009 Active confirmed [id number]- Problem 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 Active confirmed [id number]- Problem Mixed hyperlipidemia (480972393) Mixed hyperlipidemia (272.2) 2006 Problem resolved confirmed [id number]- Problem Gout (14959059) Gout, unspecifie d (274.9) 2017 Problem resolved confirmed [id number]- Problem Hypocalcemia (2378649) Hypocalcemia (275.41) 2002 Problem resolved confirmed [id number]- Problem Anemia (859822150) Unspecified a nemia (285.9) 2018 Problem resolved confirmed [id number]- Problem Acute non-suppurativ e otitis media - serous (085646126) Acute serous otitis media (381.01) 2011 Problem resolved confirmed [id number]- Problem Congestive heart failure (11147294) Congestive heart failure, unspecified (428.0) 2018 Problem resolved confirmed [id number]- Problem Actinic keratosis (139733) Actinic keratosis (702.0) 2005 Problem resolved confirmed [id number]- Problem Pressure ulcer of buttock (400935360) Pressure ulcer, buttock (707.05) 2017 Problem resolved confirmed [facility][id number]- Problem Shortness of breath (417994157) Shortness of breath (786.05) 2011 Problem resolved confirmed [id number]- Problem Basal cell carcinoma of face (852658824) Basal cell carcinoma of skin of other and unspecified parts of face (173.31) 2014 Problem resolved confirmed [id number]- Problem Ear ache (683567687) Ear ache (388.71) 2011 Problem resolved confirmed [facility][id number]- Problem Mixed hyperlipidemia (006631670) Hypercholesterolemia with hypertriglyceridemia (272.2) 2005 Problem resolved confirmed [facility]98 [id number]- Problem Infected abrasio n or friction burn of hip, thigh, leg, and ankle (916.1) 2004 Problem resolved confirmed [id number]- Problem Influenza (2243302) Influenza (487.8) 2005 Problem resolved confirmed [facility][id number]- Problem Influenza immunization (32200322) Influenza immunization (V04.81) 2018 Problem resolved confirmed [facility]98 [id number]- Problem 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) Elevated homocysteine level (270.4) 2004 Problem resolved confirmed [id number][id number]- Problem Generalized abdomina l pain (499282552) Generalized abdominal pain (789.07) 2006 Problem resolved confirmed [id number]- Problem Hyponatremia (44186451) Hyponatremia (276.1) 2016 Problem resolved confirmed [facility][id number]- Problem Pneumonia caused by Influenza virus (disorder) (28570326852606) Influenza, with pneumonia (487.0) 2016 Problem resolved confirmed [id number]- Problem Shortness of breath (772748743) Shortness of breath (786.09) 2016 Problem resolved confirmed [facility][id number]- Problem Drug reaction (35132096) Drug reaction (995.2) 2005 Problem resolved confirmed [facility]98 [id number]- Problem Screening for malignant neoplasm of colon (059916022) Screening for colorectal cancer (V76.49) 2013 Problem resolved confirmed [facility] [id number]- Problem Vaccine-other combinations (V06.8) 2006 Problem resolved confirmed [id number]98 [id number]- Problem Lab: Used to mat ch unlinked laboratory orders (V92) 2014 Problem resolved confirmed [facility][id number]- Problem Dry skin (05394695) Dry skin (701.8) 02/23 Problem resolved confirmed [facility] [id number]- Problem History of multiple allergies (situation) (307315346) Allergies (477.0) 2009 Problem resolved confirmed [facility]98 [id number]- Problem History of thyroidectomy (160198795) History of thyroidectomy (V15.2) 2003 Problem resolved confirmed [facility]98 [id number]- Problem Mitral and aortic stenosis (007024677) Aortic stenosis (396.0) 2014 Problem resolved confirmed [facility] [id number]- Problem Hypotension (81118617) Hypotension, other (458.8) 2017 Problem resolved confirmed [facility][id number] [id number]- Problem Microalbuminuria (959548827) Microalbuminuria (791.0) 2016 Problem resolved confirmed [facility] [id number]- Problem Inflamed seborrheic keratosis (583768266) Atypical seborrheic keratosis (702.11) 2003 Problem resolved confirmed [facility] [id number]- Problem Generalized pain (45770458) Generalized pain (780.99) 2016 Problem resolved confirmed [facility] [id number]- Problem Disorder of hematopoietic system (92564800) Other abnormal findings on blood examination (790.99) 2016 Problem resolved confirmed [facility] [id number]- Problem Disorder of hematopoietic system (05071073) Other abnormal laboratory result on blood (790.99) 2005 Problem resolved confirmed [facility] [id number]- Problem Localized, primary osteoarthritis of the ankle and/or foot (309425016) 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 Problem resolved confirmed [facility] [id number]- Problem Stiff neck (750952930) stiff neck (781.6) 2016 Problem resolved confirmed [facility] [id number]- Problem Laceration on th e finger(s) (883.0) 2014 Problem resolved confirmed [facility] [id number]- Problem Electrocardiogram abnormal (126468842) Abnormal EKG (794.31) 2011 Problem resolved confirmed [facility] [id number]- Problem Osteoporosis (62871269) Osteoporosis (733.09) 2003 Problem resolved confirmed [facility] [id number]- Problem Nausea and vomiting (50669948) Nausea and vomiting (787.01) 2017 Problem resolved confirmed [facility] [id number]- Problem Needs influenza immunization (082880406) Vaccination against other viral diseases, Influenza (V04.81) 2007 Problem resolved confirmed [id number]- Problem Dry skin (84849620) Dry skin (701.1) 12/23 Problem resolved confirmed [facility] [id number]- Problem Coronary artery disease (72969278) CAD (414.01) 2008 Problem resolved confirmed [facility] [id number]- Problem Essential hypertension (70571007) Essential hypertension (401.1) 2004 Problem resolved confirmed [facility] [id number]- Problem Coronary artery disease (59485453) Coronary artery disease (414.01) 2004 Problem resolved confirmed [facility] [id number]- Problem Impacted cerumen (56014264) External cerumen impaction (380.4) 2016 Problem resolved confirmed [facility] [id number]- Problem Hypertension (70967587) HTN (401.1) 2004 Problem resolved confirmed [facility] [id number]- Problem Mitral valve insufficiency (82739730) Mitral valve insufficiency (424.0) 2014 Problem resolved confirmed [facility] [id number]- Problem Gallbladder calculus (861453304) Cholelithiasis, without mention of obstruction (574.20) 2006 Problem resolved confirmed [facility] 5911- Problem Mixed hyperlipidemia (793489100) Combined hyperlipidemia (272.4) 2006 Problem resolved confirmed [facility] [id number]- Problem Sore throat (674536163) Sore Throat (462) 2007 Problem resolved confirmed [facility] [id number]- Problem Polycythemia vera (241546802) Polycythemia vera (238.4) 2012 Problem resolved confirmed [facility] [id number]- Problem Thyroid function tests abnormal (888021095) Abnormal thyroid findings (794.5) 2003 Problem resolved confirmed [facility] [id number]- Problem Candidal intertrigo (920009690) Candidal intertrigo (112.3) 2008 Problem resolved confirmed [facility] [id number]- Problem Coronary arteriosclerosis (disorder) (17324253) ASHD (414.01) 2005 Problem resolved confirmed [facility] [id number]- Problem Syncope (063392956) Syncope (780.2) 02/28 Problem resolved confirmed [facility]98 [id number]- Problem Electrocardiogram abnormal (405333570) Prolonged Q-T interval (794.31) 2014 Problem resolved confirmed [facility]98 5911- Problem Calculus of bile rita t with acute cholecystitis without obstruction (84093110) Acute choledocholithiasis (574.30) 2006 Problem resolved confirmed [facility] [id number]- Problem 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 Problem resolved confirmed [facility]98 5911- Problem Gallstones (824419216) Gallstones (574.20) 2006 Problem resolved confirmed [facility]98 5911- Problem Acquired hypothyroidism (830310425) Acquired hypothyroidism (244.8) 2009 Problem resolved confirmed [facility]98 5911- Problem Swollen lymph nodes (76503911) Swollen lymph nodes (785.6) 2018 Problem resolved confirmed [facility]98 5911- Problem Disorder of lipid metabolism (125188209) Low HDL level (272.9) 2006 Problem resolved confirmed [facility]98 5911- Problem Multiple joint pain (29370036) Joint pain, multiple sites (719.49) 2005 Problem resolved confirmed [facility]98 5911- Problem Rash (021106370) Rash (782.1) 2007 Problem resolved confirmed [facility]98 5911- Problem Dizziness (571307323) Dizziness (780.4) 0 2010 Problem resolved confirmed [facility]98 5911- Problem Iron deficiency anemia (61752239) Iron deficiency anemia, unspecified (280.9) 2018 Problem resolved confirmed [facility]98 5911- Problem Screening for malignant neoplasm of prostate (893705767) Screening for prostate cancer (V76.44) 2007 Problem resolved confirmed [facility]98 5911- Problem Anemia (240442171) Anemia, unspe cified (285.9) 2017 Problem resolved confirmed [facility]- Vital Signs Heart Rate 73 /min 02/08/2025 Blood pressure diastolic 95 mm Hg 02/08/2025 Weight-kg 79.38 kg 02/08/2025 Height 69 in 02/08/2025 Blood pressure systolic 165 mm Hg 02/08/2025 Weight 175 lbs 02/08/2025 BMI 25.84 kg/m2 02/08/2025 Encounters Encounter Location Date Provider Diagnosis [facility], [place] [address] [place] [address] 02/08/2025 LAILA RENDON Benign localized hyperplasia of prostate with urinary obstruction N40.1 ; Chronic retention of urine R33.9 ; Status post transurethral resection of prostate Z90.79 and Recurrent UTI N39.0 Assessments Encounter Date Diagnosis (ICD Code) Assessment Notes Treatment Notes Treatment Clinical Notes Section Notes 02/08/2025 Benign localized hyperplasia of prostate with urinary obstruction (ICD-10 - N40.1) Problem List: 1. Retention of urine with indwelling catheter - N39.490 2. Long-term (current) use of indwelling urinary catheter - Z46.6 3. 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 Patient is tolerating the catheter well with appropriate home health management. 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 Retention of urine with indwelling catheter - N39.490 2. Long-term (current) use of indwelling urinary catheter - Z46.6 3. 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 Patient is tolerating the catheter well with appropriate home health management. 02/08/2025 Status post transurethral resection of prostate (ICD-10 - Z90.79) Problem List: 1. Retention of urine with indwelling catheter - N39.490 2. Long-term (current) use of indwelling urinary catheter - Z46.6 3. 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 Patient is tolerating the catheter well with appropriate home health management. 02/08/2025 Recurrent UTI (ICD-10 - N39.0) Problem List: 1. Retention of urine with indwelling catheter - N39.490 2. Long-term (current) use of indwelling urinary catheter - Z46.6 3. 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 Patient is tolerating the catheter well with appropriate home health management. 02/08/2025 Other # Urinary Retention with Indwelling Catheter Continue with current indwelling catheter management. Home health to continue monthly catheter changes. Discussed potential for suprapubic catheter but agreed to maintain current approach as it is working well. Schedule KUB X-ray in one year to assess for bladder stones, which can develop with chronic catheter use. Patient to continue using larger collection bag at night and leg bag during the day. # Follow-up Return to clinic in one year for reassessment. Sooner if experiencing issues with catheter function, signs of UTI, or other concerns. You are doing well with your urinary catheter. Keep using the large bag at night and the smaller bag during the day. Home health will continue to change your catheter once a month. This regular changing helps prevent stones from forming in your bladder. We will check an X-ray of your bladder in one year to make sure no stones are forming. Call our office if you notice: - Cloudy or foul-smelling urine - Fever or chills - Pain in your lower abdomen or back - Blood in your urine that doesn't clear quickly - Problems with your catheter not draining properly Your next appointment should be in one year, but come sooner if you have any problems. Problem List: 1. Retention of urine with indwelling catheter - N39.490 2. Long-term (current) use of indwelling urinary catheter - Z46.6 3. 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 Patient is tolerating the catheter well with appropriate home health management. Plan Of Treatment Pending Test Test Name Order Date SP Tube Change 05/29/2023 Next Appt Details Provider Name:LAILA Bolton, 02/14/2026 01:50:00 PM, [address] [place], [address], Insurance Providers Payer Name Payer Address Payer Phone Subscriber Number Group Number Insured Name Patient Relationship to Insured Coverage Start Date Coverage End Date [facility] Medicare Advantage PPO [address] [address] [place], [place] [id number] Tank Saavedra Self - patient is the insured Medical (General) History Medical History History ICD Code Hypertension Hypercholesterolemia CHF Aortic stenosis Atrial fibrillation Pacemaker; Medtronic Viva Quad Hypothyroidism Osteoarthritis urinary retention and incomplete emptyin g anemia aortic stenosis BPH with LUTS Surgical History Surgery Date(Month/Year) Coronary Artery Bypass Graft Cataract removal; bilateral Pacemaker implantation; Medtronic Viva Q uad 01/06/2018 thyroid surgery battery replaced in pacemaker 01/2025 Hospitalization History Reason Date(Month/Year) UTI, COVID, received blood transfusion 0 01/2021 GI bleed 10/2020 bacteria in blood 03/2020 Surgeries
--- OUTSIDE RECORDS SUMMARY | 2025-03-17 03:07 | XMS_ITS | Encounter Summary ---
Author Organization [facility] Address [address] [place] [address] Care Team Providers Care Finisher Card Tender Name Role Phone Immanuel Bautista MD, Clive Fuller Primary Care Provider Encounter Details Date Type Department Care Team (Latest Contact Info) Description 08/16/2004 Outpatient Historical [facility] Cardiology- [place] [address] [place] [address] PALPITATIONS (Primary Dx); PREMATURE BEATS NEC; HYPERTENSION NOS; CORON ATHEROSCL KETCHIKAN CORON VESSEL Social History Tobacco Use Types Packs/Day Years Used Date Smoking Tobacco: Never Assessed Sex and Gender Information Value Date Recorded Sex Assigned at Not on file Legal Sex Male 2:37 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
--- OUTSIDE RECORDS SUMMARY | 2025-03-17 03:07 | XMS_ITS | Encounter Summary ---
Author Organization [facility] Address [address] [place] [address] Care Team Providers Care Ink Maker Name Role Phone Immanuel Bautista MD, Clive Fuller Primary Care Provider Encounter Details Date Type Department Care Team (Latest Contact Info) Description 02/09/[facility] [id number] [place] [address] German Catherine MD NO ADDRESS ON FILE PREOP EXAM OTHER SPECIFIED (Primary Dx) Social History Tobacco Use Types Packs/Day Years Used Date Smoking Tobacco: Never Assessed Sex and Gender Information Value Date Recorded Sex Assigned at Not on file 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
--- OUTSIDE RECORDS SUMMARY | 2025-03-17 03:07 | XMS_ITS | Encounter Summary ---
Author Organization [facility] Address [address] [place] [address] Care Team Providers Care [facility] Lab Technician Name Role Phone Immanuel Bautista MD, Clive Fuller Primary Care Provider Encounter Details Date Type Department Care Team (Latest Contact Info) Description 02/01/2003 Outpatient Historical [facility] Cardiology- [place] [address] [place] [address] PRIM CARDIOMYOPATHY NEC (CMS/HCC) (Primary Dx); PREMATURE BEATS NEC; HYPERTENSION NOS; Pure hypercholesterolem Social History Tobacco Use Types Packs/Day Years Used Date Smoking Tobacco: Never Assessed Sex and Gender Information Value Date Recorded Sex Assigned at Not on file 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 Gender Identity Not on file Sexual Orientation Not on file documented as of this encounter Plan of Treatment Not on file documented as of this encounter Visit Diagnoses Diagnosis 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
--- OUTSIDE RECORDS SUMMARY | 2025-03-17 03:07 | XMS_ITS | Encounter Summary ---
Author Organization [facility] Address [address] [place] [address] Care Team Providers Care Robotic Toy Inventor Name Role Phone Immanuel Bautista MD, Clive Fuller Primary Care Provider Encounter Details Date Type Department Care Team (Latest Contact Info) Description 01/13/2003 Outpatient Historical [facility] Cardiology Ancillary Services[facility] [address] [place] [address] Malignant hypertension (Primary Dx); Preop cardiovascular exam Social History Tobacco Use Types Packs/Day Years Used Date Smoking Tobacco: Never Assessed Sex and Gender Information Value Date Recorded Sex Assigned at Not on file 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
--- OUTSIDE RECORDS SUMMARY | 2025-03-17 03:07 | XMS_ITS | Encounter Summary ---
Author Organization 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
--- OUTSIDE RECORDS SUMMARY | 2025-03-17 03:07 | XMS_ITS | Encounter Summary ---
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
--- OUTSIDE RECORDS SUMMARY | 2025-03-17 03:07 | XMS_ITS | Encounter Summary ---
Author Organization [facility] Address [address] [place] [address] Care Team Providers Care Cost Specialist Name Role Phone Immanuel Bautista MD, Clive Fuller Primary Care Provider Encounter Details Date Type Department Care Team (Latest Contact Info) Description 04/24/2002 Outpatient Historical [facility] [address] [place] [address] NONTOX MULTINODUL GOITER (Primary Dx) Social History Tobacco Use Types Packs/Day Years Used Date Smoking Tobacco: Never Assessed Sex and Gender Information Value Date Recorded Sex Assigned at Not on file 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
--- OUTSIDE RECORDS SUMMARY | 2025-03-17 03:07 | XMS_ITS | Encounter Summary ---
Author Organization 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
--- OUTSIDE RECORDS SUMMARY | 2025-03-17 03:07 | XMS_ITS | Encounter Summary ---
Author Organization [facility] Address [address] [facility] Attn: [place] [address] Care Team Providers Care Instrument Maintenance Supervisor Name Role Phone Immanuel Bautista MD, Clive Fuller Primary Care Provider Encounter Details Date Type Department Care Team (Late Contact Info) Description 04/06/2002 Outpatient Historical Clive Gambino Jr., MD [address] [place] [address] Social History Tobacco Use Types Packs/Day Years Used Date Smoking Tobacco: Never Assessed Sex and Gender Information Value Date Recorded Sex Assigned at Not on file 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
--- OUTSIDE RECORDS SUMMARY | 2025-03-17 03:07 | XMS_ITS | Encounter Summary ---
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
--- OUTSIDE RECORDS SUMMARY | 2025-03-17 03:07 | XMS_ITS | Encounter Summary ---
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
--- OUTSIDE RECORDS SUMMARY | 2025-03-17 03:07 | XMS_ITS | Encounter Summary ---
Author Organization [facility] Address [address] [facility] Attn: [place] [address] Care Team Providers Care Bpm Solution Architect Name Role Phone Immanuel Bautista MD, Clive Fuller Primary Care Provider Encounter Details Date Type Department Care Team (Late st Contact Info) Description 12/09/2000 Outpatient Historical Clive Gambino Jr., MD [address] [place] [address] Social History Tobacco Use Types Packs/Day Years Used Date Smoking Tobacco: Never Assessed Sex and Gender Information Value Date Recorded Sex Assigned at Not on file 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
--- OUTSIDE RECORDS SUMMARY | 2025-03-17 03:07 | XMS_ITS | Encounter Summary ---
Author Organization [facility] Address [address] [place] [address] Care Team Providers Care Java User Interface Developer Name Role Phone Immanuel Bautista MD, Clive Fuller Primary Care Provider Encounter Details Date Type Department Care Team (Latest Contact Info) Description 10/28/2000 Outpatient Historical [facility] Pure hypercholesterolem (Primary Dx); Unspecified essential hypertension; Unspecified hypothyroidism Social History Tobacco Use Types Packs/Day Years Used Date Smoking Tobacco: Never Assessed Sex and Gender Information Value Date Recorded Sex Assigned at Not on file 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
--- OUTSIDE RECORDS SUMMARY | 2025-03-17 03:07 | XMS_ITS | Encounter Summary ---
Author Organization [facility] Address [address] [place] [address] Care Team Providers Care Teller Manager Name Role Phone Immanuel Bautista MD, Clive Fuller Primary Care Provider Encounter Details Date Type Department Care Team (Latest Contact Info) Description 11/27/2001 Outpatient Historical [facility] Toxic effect venom (Primary Dx); Venomous spider bite; HYPERTENSION NOS Social History Tobacco Use Types Packs/Day Years Used Date Smoking Tobacco: Never Assessed Sex and Gender Information Value Date Recorded Sex Assigned at Not on file Legal Sex Male 2:37 AM DENTAL RESIDENT Gender Identity Not on file Sexual Orientation Not on file documented as of this encounter Plan of Treatment Not on file documented as of this encounter Visit Diagnoses Diagnosis Toxic effect venom- Primary Toxic effect of venom Venomous spider bite Venomous spiders as the cause of poisoning and toxic reactions Unspecified essential hypertension documented in this encounter Care Teams Teller Manager Relationship Specialty Start Date End Date Clive Gambino Jr., MD [address] [place] [phone] PCP - General 08/19/07 documented as of this encounter
--- OUTSIDE RECORDS SUMMARY | 2025-03-17 03:07 | XMS_ITS | Encounter Summary ---
Author Organization [facility] Address [address] [place] [address] Care Team Providers Care Patient Care Name Role Phone Immanuel Bautista MD, Clive Fuller Primary Care Provider Encounter Details Date Type Department Care Team (Latest Contact Info) Description 04/26/1999 Outpatient Historical [facility] Routine medical exam (Primary Dx); Unspecified essential hypertension; Need for prophylactic vaccination against Streptococcus pneumoniae (pneumococcus); Hyperplasia of prostate Social History Tobacco Use Types Packs/Day Years Used Date Smoking Tobacco: Never Assessed Sex and Gender Information Value Date Recorded Sex Assigned at Not on file 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 Gender Identity Not on file Sexual Orientation Not on file documented as of this encounter Plan of Treatment Not on file documented as of this encounter Visit Diagnoses Diagnosis Routine medical exam- Primary Routine general medical examination at a health care facility Unspecified essential hypertension Need for prophylactic vaccination against Streptococcus pneumoniae (pneumococcus) Need for prophylactic vaccination against streptococcus pneumoniae (pneumococcus) Hyperplasia of prostate documented in this encounter Care Teams Patient Care Relationship Specialty Start Date End Date Clive Gambino Jr., MD [address] [place] [address] PCP - General 08/19/07 documented as of this encounter
--- OUTSIDE RECORDS SUMMARY | 2025-03-17 03:07 | XMS_ITS | Encounter Summary ---
Author Organization [facility] Address [address] [place] [address] Care Team Providers Care Vulcanized Fiber Unit Operator Name Role Phone Immanuel Bautista MD, Clive Fuller Primary Care Provider Encounter Details Date Type Department Care Team (Latest Contact Info) Description 03/11/2003 Outpatient Historical [facility] Cardiology- [place] [address] [place] [address] German Catherine MD NO ADDRESS ON FILE CORON ATHEROSCL [place] CORON VESSEL (Primary Dx) Social History Tobacco Use Types Packs/Day Years Used Date Smoking Tobacco: Never Assessed Sex and Gender Information Value Date Recorded Sex Assigned at Not on file 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
--- OUTSIDE RECORDS SUMMARY | 2025-03-17 03:07 | XMS_ITS | Encounter Summary ---
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
--- OUTSIDE RECORDS SUMMARY | 2025-03-17 03:07 | XMS_ITS | Encounter Summary ---
Author Organization [facility] Address [address] [place] [address] Care Team Providers Care Medical Sales Specialist Name Role Phone Immanuel Bautista MD, Clive Fuller Primary Care Provider Encounter Details Date Type Department Care Team (Latest Contact Info) Description 01/27/2003 Outpatient Historical [facility] [address] [place] [address] Navdeep Montalvo MD [address] [address] [place] [address] ASCVD (Primary Dx) Social History Tobacco Use Types Packs/Day Years Used Date Smoking Tobacco: Never Assessed Sex and Gender Information Value Date Recorded Sex Assigned at Not on file 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
--- OUTSIDE RECORDS SUMMARY | 2025-03-17 03:07 | XMS_ITS | Encounter Summary ---
Author Organization [facility] Address [address] [place] [address] Care Team Providers Care Landscape Horticulture Instructor Name Role Phone Immanuel Bautista MD, Clive Fuller Primary Care Provider Encounter Details Date Type Department Care Team (Latest Contact Info) Description 03/15/2003 Outpatient Historical [facility] Cardiology- [place] [address] [place] [address] PREMATURE BEATS NEC (Primary Dx); HYPERTENSION NOS; CORON ATHEROSCL [place] CORON VESSEL; Pure hypercholesterolem Social History Tobacco Use Types Packs/Day Years Used Date Smoking Tobacco: Never Assessed Sex and Gender Information Value Date Recorded Sex Assigned at Not on file 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
--- OUTSIDE RECORDS SUMMARY | 2025-03-17 03:07 | XMS_ITS | Encounter Summary ---
Author Organization [facility] Address [address] [place] [address] Care Team Providers Care Slot Service Specialist Name Role Phone Immanuel Bautista MD, Clive Fuller Primary Care Provider Encounter Details Date Type Department Care Team (Latest Contact Info) Description 04/20/2002 Outpatient Historical [facility] Imaging Services-[place] [facility] [place] [address] [place] [address] NONTOX UNINODULAR GOITER (Primary Dx) Social History Tobacco Use Types Packs/Day Years Used Date Smoking Tobacco: Never Assessed Sex and Gender Information Value Date Recorded Sex Assigned at Not on file 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
--- OUTSIDE RECORDS SUMMARY | 2025-03-17 03:07 | XMS_ITS | Encounter Summary ---
Author Organization [facility] Address [address] [place] [address] Care Team Providers Care Manager Home Name Role Phone Immanuel Bautista MD, Clive Fuller Primary Care Provider Encounter Details Date Type Department Care Team (Latest Contact Info) Description 07/23/2001 Outpatient Historical 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
--- OUTSIDE RECORDS SUMMARY | 2025-03-17 03:07 | XMS_ITS | Encounter Summary ---
Author Organization [facility] Address [address] [place] [address] Care Team Providers Care Ballistician Name Role Phone Immanuel Bautista MD, Clive Fuller Primary Care Provider Encounter Details Date Type Department Care Team (Late st Contact Info) Description 02/08/2003 Outpatient Historical [facility] Cardiac Thoracic Vascular Surg [place] [address] [place] [address] Social History Tobacco Use Types Packs/Day Years Used Date Smoking Tobacco: Never Assessed Sex and Gender Information Value Date Recorded Sex Assigned at Not on file 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
--- OUTSIDE RECORDS SUMMARY | 2025-03-17 03:07 | XMS_ITS | Encounter Summary ---
Author Organization [facility] Address [address] [place] [address] Care Team Providers Care Relay Telegrapher Name Role Phone Immanuel Bautista MD, Clive Fuller Primary Care Provider Encounter Details Date Type Department Care Team (Latest Contact Info) Description 02/03/2003 Outpatient Historical [facility] Cardiac Summer Sessions Director [address] [place] [address] Tank Davis MD [address] [facility] [address] [place] [address] CORON ATHEROSCL [place] CORON VESSEL (Primary Dx) Social History Tobacco Use Types Packs/Day Years Used Date Smoking Tobacco: Never Assessed Sex and Gender Information Value Date Recorded Sex Assigned at Not on file 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
--- OUTSIDE RECORDS SUMMARY | 2025-03-17 03:07 | XMS_ITS | Encounter Summary ---
Author Organization [facility] Address [address] [place] [address] Care Team Providers Care Singe Winder Name Role Phone Immanuel Bautista MD, Clive Fuller Primary Care Provider Encounter Details Date Type Department Care Team (Latest Contact Info) Description 07/14/2003 Outpatient Historical [facility]- [place] [address] [place] [address] PREMATURE BEATS NEC (Primary Dx); HYPERTENSION NOS; CORON ATHEROSCL [place] CORON VESSEL; Pure hypercholesterolem Social History Tobacco Use Types Packs/Day Years Used Date Smoking Tobacco: Never Assessed Sex and Gender Information Value Date Recorded Sex Assigned at Not on file 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
--- OUTSIDE RECORDS SUMMARY | 2025-03-17 03:07 | XMS_ITS | Encounter Summary ---
Author Organization [facility] Address [address] [place] [address] Care Team Providers Care Ob Gyn Physician Assistant Name Role Phone Immanuel Bautista MD, Clive Fuller Primary Care Provider Encounter Details Date Type Department Care Team (Latest Contact Info) Description 11/11/2002 Outpatient Historical [facility] Imaging Services-Quentin Lenoard Romelia [address] [place] [address] Elise Jama MD [address] [place] [address] NONTOX MULTINODUL GOITER (Primary Dx) Social History Tobacco Use Types Packs/Day Years Used Date Smoking Tobacco: Never Assessed Sex and Gender Information Value Date Recorded Sex Assigned at Not on file 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
--- OUTSIDE RECORDS SUMMARY | 2025-03-17 03:07 | XMS_ITS | Encounter Summary ---
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
--- OUTSIDE RECORDS SUMMARY | 2025-03-17 03:07 | XMS_ITS | Encounter Summary ---
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
--- OUTSIDE RECORDS SUMMARY | 2025-03-17 03:07 | XMS_ITS | Encounter Summary ---
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); Unspecified essential hypertension; Inhibited sex excitement Social History Tobacco Use Types Packs/Day Years Used Date Smoking Tobacco: Never Assessed Sex and Gender Information Value Date Recorded Sex Assigned at Not on file 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 Gender Identity Not on file Sexual Orientation Not on file documented as of this encounter Plan of Treatment Not on file documented as of this encounter Visit Diagnoses Diagnosis 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
--- OUTSIDE RECORDS SUMMARY | 2025-03-17 03:07 | XMS_ITS | Encounter Summary ---
Author Organization [facility] Address [address] [place] [address] Care Team Providers Care Radiation Safety Officer Name Role Phone Immanuel Bautista MD, Clive Fuller Primary Care Provider Encounter Details Date Type Department Care Team (Latest Contact Info) Description 11/25/[address] [facility] Gen Spec Surg [place] 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
--- OUTSIDE RECORDS SUMMARY | 2025-03-17 03:07 | XMS_ITS | Encounter Summary ---
Author Organization [facility] Address [address] [place] [address] Care Team Providers Care Activity Coordinator Name Role Phone Immanuel Bautista MD, Clive Fuller Primary Care Provider Encounter Details Date Type Department Care Team (Latest Contact Info) Description 03/11/2003 Outpatient Historical [facility] Cardiac Thoracic Vascular Surg Nicole [address] [place] [address] CORON ATHEROSCL [place] CORON VESSEL (Primary Dx) Social History Tobacco Use Types Packs/Day Years Used Date Smoking Tobacco: Never Assessed Sex and Gender Information Value Date Recorded Sex Assigned at Not on file 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
--- NOTE | 2025-03-17 03:08 | W.ED.GENADLT ---
HPI - General Adult General: Chief complaint: Arrhythmia/Palpitations Stated complaint: Pacemaker is shocking pt Time Seen by Provider: 03/17/25 03:00 Source: patient Mode of arrival: ambulatory Limitations: no limitations History of Present Illness: 89-year-old male that has a defibrillator placed he states that yesterday it shocked him 4 times he spoke to his circular knitter Dr. Yepez states it made some med changes but states that in the melanite again tonight it shocked him. He states he feels some diaphoresis before he gets a shock he denies any chest pain has no chest pain currently denies any syncope. Denies any cough or fever Related Data Home Medications ?Medication ?Instructions ?Recorded ?Confirmed omega-3 fatty acids 1,000 mg 1,000 mg PO DAILY@0700 06/22/20 02/09/25 capsule (Fish Oil Concentrate) loratadine 10 mg tablet (Claritin) 10 mg PO BEDTIME@1900 09/12/20 02/09/25 ascorbic acid (vitamin C) 1,000 mg 1 g PO BID@0700,1900 01/17/21 02/09/25 tablet cholecalciferol (vitamin D3) 25 25 mcg PO DAILY 12/21/21 02/09/25 mcg (1,000 unit) capsule lutein 25 mg-zeaxanthin 5 mg 1 cap PO .1 daily 12/26/21 02/09/25 capsule furosemide 40 mg tablet 20 mg PO DAILY 09/13/22 02/09/25 triamcinolone acetonide 55 mcg 2 spray intranasal DAILY PRN Rash 04/08/23 02/09/25 nasal spray aerosol (Nasacort) dorzolamide 22.3 mg-timolol 6.8 1 drp ophthalmic (eye) BID 05/06/24 02/09/25 mg/mL eye drops lycopene 10 mg capsule 15 mg PO DAILY@0700 10/28/24 02/09/25 Previous Rx's ?Medication ?Instructions ?Recorded tamsulosin 0.4 mg capsule 0.4 mg PO BEDTIME@1900 #90 caps 02/20/22 atorvastatin 40 mg tablet 40 mg PO DAILY@1900 #90 tabs 03/01/22 levothyroxine 150 mcg tablet 150 mcg PO DAILY #90 tabs 03/05/22 (Euthyrox) methenamine hippurate 1 gram tablet See Rx Instructions .Route 09/05/22 .COMPLEX #60 tabs nitroglycerin 0.4 mg sublingual 0.4 mg sublingual Q5M PRN Chest 09/13/22 tablet (Nitrostat) Pain #30 tabs spironolactone 25 mg tablet 12.5 mg (1/2 x 25 mg) PO DAILY #90 05/29/24 tabs metoprolol succinate 25 mg 12.5 mg (1/2 x 25 mg) PO BID #45 03/16/25 tablet,extended release 24 hr tabs sacubitril 49 mg-valsartan 51 mg 0.5 tab PO BID #120 tabs 03/16/25 tablet (Entresto) Allergies Allergy/AdvReac Type Severity Reaction Status Date / Time fenofibrate Allergy Unknown Unknown Verified 02/09/25 15:27 levofloxacin Allergy Unknown Unknown Verified 02/09/25 15:27 niacin Allergy Unknown Unknown Verified 02/09/25 15:27 [facility] PFS: Medical History (Updated 03/17/25 @ 05:16 by Nhan Cruz MD) 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 So he was taken off the Pradaxa SSS (sick sinus syndrome) HTN (hypertension) ASHD (arteriosclerotic heart disease) Ischemic cardiomyopathy CKD (chronic kidney disease) Carotid stenosis, bilateral Aortic stenosis Mitral regurgitation Pulmonary HTN Surgical History H/O esophagogastroduodenoscopy (10/20/20) History of coronary artery stent placement Status post colonoscopy (10/20/20) diverticulosis, polyps S/P hernia repair S/P cataract extraction S/P CABG (coronary artery bypass graft) S/P ICD (internal cardiac defibrillator) procedure S/P TAVR (transcatheter aortic valve replacement) Family History Mother , at age 82 CAD (coronary artery disease) Father , at age 69 Stroke Social History Smoking and tobacco/nicotine status: never used tobacco/nicotine Alcohol intake: never Substance/Drug Use: never Adopted: No Caregiver/support person: No Lives independently: No Household members: spouse Marital status: Current occupational status: retired Physical Exam Const: COMMON NORMALS: no acute distress, patient oriented x3 and healthy appearing HENMT: COMMON NORMALS: normocephalic and atraumatic HEAD & SCALP: normocephalic and atraumatic Neck/C-Spine: COMMON NORMALS: full ROM and supple Chest: COMMONS NORMALS: normal inspection of the chest Resp: COMMON NORMALS: normal respiratory effort, No retractions, No use of accessory muscles and clear to auscultation bilaterally AUSCULTATION: clear to auscultation bilaterally Cardio: COMMON NORMALS: regular rate, regular rhythm and No murmurs present (Cardio) RATE: regular rate RHYTHM: regular rhythm Extremity: COMMON NORMALS: normal to inspection and full ROM Neuro: COMMON NORMALS: patient oriented x3, moves all extremities and no focal motor deficits Psych: COMMON NORMALS: mental status grossly normal, Normal thought process present and cooperative THOUGHT PROCESS: Normal thought process present Skin: COMMON NORMALS: no rashes or lesions noted and no wounds GENERAL SKIN EXAM: no rashes or lesions noted Course Vital Signs: Vital signs: Vital Signs Temperature 97.6 F 03/17/25 03:04 Pulse Rate 72 03/17/25 04:14 Respiratory Rate 17 03/17/25 03:04 Blood Pressure 129/80 03/17/25 04:14 Pulse Oximetry 100 03/17/25 04:14 Oxygen Delivery Me thod Room Air 03/17/25 04:14 MDM - General Adult Medical Decision Making Patient presents here after being shocked by his AICD multiple times in the last 2 days with 1 last night. He has not had any chest pain or shortness of breath. His initial lab work and EKG here are normal no acute findings. Did get results from his Medtronic interrogation he has had multiple shocks of the last 2 days with multiple runs of V-fib and V. tach. I did speak to the hospitalist Dr. Barnes and will admit to cardiac stepdown I have attempted to call cardiology Dr. Yan pending callback from her for consult patient has been stable while here with stable vitals. I did go over all this with patient and his family and will admit Medical Records I reviewed the patient's medical records. Lab Data I reviewed the patient's lab results. 03/17/25 04:16 03/17/25 04:16 Laboratory Results WBC 6.58 10^3/uL (3.29-11.43) 03/17/25 04:16 RBC 4.74 10^6/uL (3.85-5.65) 03/17/25 04:16 Hgb 14.30 g/dL (11.27-16.99) 03/17/25 04:16 Hct 44.4 % (37-53) 03/17/25 04:16 MCV 93.7 fl (82-101) 03/17/25 04:16 MCH 30.2 pg (27-33) 03/17/25 04:16 MCHC 32.2 g/dL (30-55) 03/17/25 04:16 RDW 15.5 % (12.1-15.1) H 03/17/25 04:16 Plt Count 101 10^3/cmm (157-399) L 03/17/25 04:16 MPV 12.5 fL (7.4-10.4) H 03/17/25 04:16 Neut % (Auto) 62.7 % 03/17/25 04:16 Lymph % (Auto) 19.0 % 03/17/25 04:16 Granite % (Auto) 13.2 % 03/17/25 04:16 Eos % (Auto) 3.8 % 03/17/25 04:16 Baso % (Auto) 0.8 % 03/17/25 04:16 Neut # (Auto) 4.13 10^3/uL (1.8-7.7) 03/17/25 04:16 Lymph # (Auto) 1.3 10^3/uL (0.8-4.8) 03/17/25 04:16 Granite # (Auto) 0.9 10^3/uL (0.2-0.9) 03/17/25 04:16 Eos # (Auto) 0.3 10^3/uL (0.0-0.8) 03/17/25 04:16 Baso # (Auto) 0.1 10^3/uL (0.0-0.1) 03/17/25 04:16 Nucleated RBC % (auto) 0 % 03/17/25 04:16 Nucleated RBCs # 0.0 /100WBC 03/17/25 04:16 Sodium 139 mmol/L (136-145) 03/17/25 04:16 Potassium 3.7 mmol/L (3.5-5.1) 03/17/25 04:16 Chloride 103 mmol/L (98-107) 03/17/25 04:16 Carbon Dioxide 21 mmol/L (22-29) L 03/17/25 04:16 Anion Gap 18.7 (5-19) 03/17/25 04:16 BUN 27 mg/dL (8-23) H 03/17/25 04:16 Creatinine 1.1 mg/dL (0.7-1.2) 03/17/25 04:16 GFR Calculation Not Reportable 03/17/25 04:16 Glucose 101 mg/dL (65-115) 03/17/25 04:16 Calculated Osmolality 293 mOsm/kg (285-295) 03/17/25 04:16 Calcium 9.1 mg/dL (8.5-10.5) 03/17/25 04:16 Magnesium 1.7 mg/dL (1.7-2.3) 03/17/25 04:16 Total Bilirubin 1.0 mg/dL (0.15-1.2) 03/17/25 04:16 AST 27 U/L (0-40) 03/17/25 04:16 ALT 23 U/L (0-41) 03/17/25 04:16 Alkaline Phosphatase 193 U/L (40-130) H 03/17/25 04:16 Troponin T Baseline 34 ng/L (0-15) H 03/17/25 04:16 Total Protein 7.3 g/dL (6.6-8.7) 03/17/25 04:16 Albumin 4.2 g/dL (3.5-5.2) 03/17/25 04:16 Globulin 3.1 g/dL (1.3-4.6) 03/17/25 04:16 All radiology interpretation(s) finalized by discharge EKG Data EKG 1: I personally reviewed and interpreted this EKG as follows: EKG interpretation date: 03/17/25 EKG interpretation time: 03:09 Interpretation: paced hr [address] elevation qrs 19 qtc 271 no change from previous ekg Discharge Plan Discharge Patient Disposition: Admitted As Inpatient Clinical Impression: AICD discharge Condition: Stable Coding Level of Care Code ED Service Parts Coordinator for Rod Burnett
[2025-03-17 04:27] LABS: Hematocrit 44.4 % (37-53); Hemoglobin 14.30 g/dL (11.27-16.99); Mean Corpuscular HGB Conc 32.2 g/dL (30-55); Mean Corpuscular Hemoglobin 30.2 pg (27-33); Mean Corpuscular Volume 93.7 fl (82-101); Nucleated Red Blood Cells % 0 %; Platelet Count 101 10^3/cmm (157-399); Red Blood Count 4.74 10^6/uL (3.85-5.65); White Blood Count 6.58 10^3/uL (3.29-11.43)
[2025-03-17 04:45] LABS: Troponin(5th) Baseline 34 ng/L (0-15)
[2025-03-17 04:47] LABS: Alanine Aminotransferase 23 U/L (0-41); Albumin Level 4.2 g/dL (3.5-5.2); Alkaline Phosphatase 193 U/L (40-130); Anion Gap 18.7 (5-19); Aspartate Amino Transferase 27 U/L (0-40); Blood Urea Nitrogen 27 mg/dL (8-23); Calcium 9.1 mg/dL (8.5-10.5); Carbon Dioxide 21 mmol/L (22-29); Chloride 103 mmol/L (98-107); Creatinine Clr Calc Pharmacy 46.9442; Globulin 3.1 g/dL (1.3-4.6); Glucose 101 mg/dL (65-115); Magnesium 1.7 mg/dL (1.7-2.3); Osmolality Calculated 293 mOsm/kg (285-295); Potassium 3.7 mmol/L (3.5-5.1); Sodium 139 mmol/L (136-145); Total Protein 7.3 g/dL (6.6-8.7)
--- NOTE | 2025-03-17 04:59 | ECG_ITS ---
[facility]: 2025-03-17 Pat Name: Tank Saavedra Department: Room: [facility] Gender: Male Entry Rep: : 1935 Requested By: Nhan Cruz Order Number: [id number] Martinez MD: Blair Yan M.D. Measurements Intervals [place] Rate: 69 P: 0 MD: 0 QRS: 185 QRSD: 221 T: 5 QT: 505 QTc: 544 Interpretive Statements VENTRICULAR PACED RHYTHM ABNORMAL RHYTHM ECG Compared to ECG 03/17/2025 03:09:57 NO SIGNIFICANT CHANGE Electronically Signed On 03-17-2025 22:21:55 CDT by Blair Yan M.D. [email or web address]
--- NOTE | 2025-03-17 05:41 | USCV_ITS ---
Tank Saavedra Age: 89 Gender: M : 1935 Exam Date: 03/17/2025 05:57 Ordering Phys: Nhan Cruz MD Technologist: RITESH Exam Location: [facility] Indication: CP BP: 134 / 83 HR: 66 Rhythm: Sinus Technical Quality: Adequate MEASUREMENTS (Male / Female) Normal Values 2D ECHO LV Diastolic Diameter PLAX 4.8 cm 4.2 - 5.9 / 3.9 - 5.3 cm IVS Diastolic Thickness 0.9 cm 0.6 - 1.0 / 0.6 - 0.9 cm IVS Systolic Thickness 1.7 cm LVPW Diastolic Thickness 1.5 cm 0.6 - 1.0 / 0.6 - 0.9 cm LVPW Systolic Thickness 1.9 cm LVOT Diameter 2.0 cm LV Ejection Fraction 2D Teich 40.6 % LV Ejection Fraction MOD 4C 34.5 % LV Ejection Fraction MOD 2C 36.6 % LV Ejection Fraction 2C AL 43.0 % LA Diameter 4.8 cm RA Systolic Volume 4C AL 95.8 ml RA Systolic Volume 4C MOD 95.1 ml LA Sys Volume AL 127.6 cm cubed LA Sys Volume Index AL 65.9 cm cubed/m squared Aorta at Sinotubular Diameter 2.1 cm M-MODE LA Ao Ratio MM 2.2 AV Cusp Separation MM 1.0 cm DOPPLER AV Peak Velocity 89.0 cm/s LVOT Peak Velocity 72.0 cm/s AV Area Cont Eq vti 2.1 cm squared AV Area Cont Eq pk 2.6 cm squared MV Peak Velocity 88.0 cm/s MV Area PHT 3.5 cm squared Mitral E to A Ratio 2.3 TR Peak Velocity 152.0 cm/s TR Peak Gradient 9.2 mmHg TV Peak E Velocity 88.0 cm/s PV Peak Velocity 69.0 cm/s FINDINGS Left Ventricle Normal left ventricular cavity size. Moderately decreased left ventricular systolic function with akinesis of the mid and basal inferior, inferoseptal, inferolateral and anterolateral wall segments with an EF of 37%. Paradoxical septal motion. Indeterminate LV diastolic function. Normal LV wall thickness. Right Ventricle Moderately increased right ventricular size. Mildly decreased right ventricular systolic function. Normal right ventricular systolic pressure. Catheter/pacemaker wire visualized in the right ventricle. Right Atrium Normal right atrial size. Left Atrium Mildly increased left atrial size. Mitral Valve No mitral valve stenosis. No mitral valve regurgitation. Aortic Valve No aortic valve stenosis. No aortic valve regurgitation. Tricuspid Valve Mild tricuspid valve regurgitation. Pulmonic Valve Mild pulmonary valve regurgitation. Pericardium No pericardial effusion. Aorta Normal size aortic root and proximal ascending aorta. IVC Inferior vena cava not visualized. CONCLUSIONS 1.Normal left ventricular cavity size. Moderately decreased left ventricular systolic function with akinesis of the mid and basal inferior, inferoseptal, inferolateral and anterolateral wall segments with an EF of 37%. Paradoxical septal motion. Indeterminate LV diastolic function. Normal LV wall thickness. 2. Moderate right ventricular enlargement. Mildly decreased right ventricular systolic function 3. Pacemaker wire seen in RV 4. No significant valvular abnormalities. 5. Compared to echocardiogram on 12/11/2024, there is no significant change. Blair Yan MD, FACC (Electronically Signed) Final Date: 17 March 2025 17:21 S
--- NOTE | 2025-03-17 05:55 | PM.HP ---
Providers/Chief Complaint Admitting Physician: MISSAEL CROUCH DO----admitted after 12 midnight Primary Care Provider: Lizbeth Berrios MD Chief Complaint: Pacemaker is shocking pt History of Present Illness Tank Saavedra is a 89 year old male with medical history significant for arrhythmia requiring AICD placement. Patient had had 1 in the past that run out of battery life and a new 1 was just placed 6 weeks ago and this 1 is working very well but had fired multiple times within the last 48 hours for a V. tach and V-fib. AICD was interrogated in the emergency room and he was able to generate scrapes of V. tach and V-fib's. Patient is not on any amiodarone already at home. Case discussed with cardiology Dr. Knight who feels the patient need to be on amiodarone drip and then will transition to oral once the protocol is completed. I have seen and evaluated patient discussed care with the family and also discussed care with the ED attending as well as the inspector timers. Patient is going to be going to stepdown unit though with an ICU over the floor since he has no bed in stepdown. Otherwise patient is doing okay no chest pain hemodynamically stable vital signs are stable and good. Family very jovial patient is 89 years old is 89 years old looking good and looking fit and very happy together. and daughter at the bedside. Review of Systems Narrative: System review upon 10 organ system review we are only significant for cardiovascular process with arrhythmia and a functional AICD doing its walk. Medications/Allergies Home Medications ?Medication ?Instructions ?Recorded ?Confirmed ?Last Taken ?Type omega-3 fatty acids 1,000 mg 1,000 mg PO DAILY@0706/22/20 02/09/25 01/28/25 History capsule (Fish Oil Concentrate) loratadine 10 mg tablet (Claritin) 10 mg PO BEDTIME@0 09/12/20 02/09/25 01/28/25 History ascorbic acid (vitamin C) 1,000 mg 1 g PO BID@0700,1900 01/17/21 02/09/25 01/28/25 History tablet cholecalciferol (vitamin D3) 25 25 mcg PO DAILY 12/21/21 02/09/25 01/28/25 History mcg (1,000 unit) capsule lutein 25 mg-zeaxanthin 5 mg 1 cap PO .1 daily 12/26/21 02/09/25 01/28/25 History capsule tamsulosin 0.4 mg capsule 0.4 mg PO BEDTIME@1900 #90 caps 02/20/22 02/09/25 01/28/25 Rx atorvastatin 40 mg tablet 40 mg PO DAILY@1900 #90 tabs 03/01/22 02/09/25 01/28/25 Rx levothyroxine 150 mcg tablet 150 mcg PO DAILY #90 tabs 03/05/22 02/09/25 01/29/25 06:30 Rx (Euthyrox) methenamine hippurate 1 gram tablet See Rx Instructions .Route 09/05/22 02/09/25 01/28/25 Rx .COMPLEX #60 tabs furosemide 40 mg tablet 20 mg PO DAILY 09/13/22 02/09/25 01/28/25 History nitroglycerin 0.4 mg sublingual 0.4 mg sublingual Q5M PRN Chest 09/13/22 02/09/25 01/28/25 Rx tablet (Nitrostat) Pain #30 tabs triamcinolone acetonide 55 mcg 2 spray intranasal DAILY PRN Rash 04/08/23 02/09/25 01/28/25 History nasal spray aerosol (Nasacort) dorzolamide 22.3 mg-timolol 6.8 1 drp ophthalmic (eye) BID 05/06/24 02/09/25 01/28/25 History mg/mL eye drops spironolactone 25 mg tablet 12.5 mg (1/2 x 25 mg) PO DAILY #90 05/29/24 02/09/25 01/28/25 Rx tabs lycopene 10 mg capsule 15 mg PO DAILY@0700 10/28/24 02/09/25 01/28/25 History metoprolol succinate 25 mg 12.5 mg (1/2 x 25 mg) PO BID #45 03/16/25 Unknown Rx tablet,extended release 24 hr tabs sacubitril 49 mg-valsartan 51 mg 0.5 tab PO BID #120 tabs 03/16/25 Unknown Rx tablet (Entresto) Allergies Allergy/AdvReac Type Severity Reaction Status Date / Time fenofibrate Allergy Unknown Unknown Verified 02/09/25 15:27 levofloxacin Allergy Unknown Unknown Verified 02/09/25 15:27 niacin Allergy Unknown Unknown Verified 02/09/25 15:27 PFSH Acute PFSH: Medical History Cardiac resynchronization therapy defibrillator (ALTERATIONS SUPERVISOR-D) in place CHF (congestive heart failure) Arrhythmia Urinary tract infection associated with indwelling urethral catheter, subsequent encounter History of myelodysplastic syndrome Chronic anticoagulation Clot retention of urine Hyponatremia Anemia Phimosis Urinary retention BPH (benign prostatic hyperplasia) Hypothyroidism Anticoagulation adequate with anticoagulant therapy Direct thrombin inhibitor Pradaxa Dyslipidemia Atrial fibrillation Patient has a history of recurrent GI bleed and spontaneous hematoma in the flank. So he was taken off the Pradaxa SSS (sick sinus syndrome) HTN (hypertension) ASHD (arteriosclerotic heart disease) Ischemic cardiomyopathy CKD (chronic kidney disease) Carotid stenosis, bilateral Aortic stenosis Mitral regurgitation Pulmonary HTN Surgical History H/O esophagogastroduodenoscopy (10/20/20) History of coronary artery stent placement Status post colonoscopy (10/20/20) diverticulosis, polyps S/P hernia repair S/P cataract extraction S/P CABG (coronary artery bypass graft) S/P ICD (internal cardiac defibrillator) procedure S/P TAVR (transcatheter aortic valve replacement) Family History Mother , at age 82 CAD (coronary artery disease) Father , at age 69 Stroke Social History Smoking and tobacco/nicotine status: never used tobacco/nicotine Alcohol intake: never Substance/Drug Use: never Adopted: No Caregiver/support person: No Lives independently: No Household members: spouse Marital status: Current occupational status: retired Vitals/I&O/Wt Last Vital Signs Temp 97.6 F 03/17/25 03:04 Pulse 70 03/17/25 05:00 Resp 17 03/17/25 03:04 BP 124/76 03/17/25 05:00 Pulse Ox 100 03/17/25 05:00 O2 Del Method Room Air 03/17/25 05:00 Weight last 48 hrs Weight 76.204 kg Physical Exam Narrative: Generally patient looks well not ill-appearing not weak appearing very cheerful and wheelchair for disposition. HEENT normocephalic/atraumatic neck neck is supple cardiovascular heart rate is regular lungs are pretty much clear abdomen soft nontender nondistended unremarkable extremities intact no edema has good pulses neurology has no focality lab studies lab studies reviewed and noted. Data 03/17/25 04:16 03/17/25 04:16 A&P Assessment and plan 1. AICD discharge: 2. CHF (congestive heart failure), NYHA class III: Plan: #1 AICD discharges - Patient with AICD multiple discharges for V. tach V-fib - Admit to stepdown unit if there is no bed patient can be an ICU overflow - Amiodarone initiated per protocol with cardiology consultation. - Current AICD was only 6 weeks old following in a battery ran out - Must continue to monitor - Echo ordered follow-up the result #2 History of CHF Nyha class III - Patient is not in any overt heart failure at this time. #3 GI and DVT prophylaxis in place PDMP PDMP Reviewed: Not Reviewed Attestations Medical Necessity Statement*: Patient meets inpatient criteria on IV amiodarone drip for the care of multiple discharges of AICD for V. tach and V-fib. Patient needs at least 2 midnights to optimize care and be able to be on oral amiodarone once the drip completes Coding Level of Care Code 36538 Diagnoses AICD discharge Z45.02 CHF (congestive heart failure), NYHA class III I50.9 Time Spent (min) 60
[2025-03-17 06:27] LABS: Troponin 5 2HR 32.23 ng/L (0-15)
[2025-03-17 06:32] LABS: Troponin 5 2HR Delta -1.77 ABS# (0-10)
[2025-03-17] MEDS: heparin 5,000 unit/mL INJ 1 mL 5000 UNIT SUBCUT ×2 (07:43→17:31)
[2025-03-17] MEDS: AMIODARONE HCL/D5W 900 MG/500 ML BAG 33.33 MG IV (07:45)
--- NOTE | 2025-03-17 08:45 | ECG_ITS ---
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 Measurements Intervals [place] Rate: 72 P: 134 MS: 96 QRS: 132 QRSD: 24 T: 0 QT: 152 QTc: 167 Interpretive Statements VENTRICULAR PACED RHYTHM VENTRICULAR PREMATURE COMPLEXES Compared to ECG 03/17/2025 06:19:39 VENTRICULAR ECTOPIC BEATS ARE NEW Electronically Signed On 03-17-2025 22:24:25 CDT by Blair Yan M.D. [email or web address]
--- NOTE | 2025-03-17 09:32 | P.CONIM_ITS ---
<Statement entered by Blair Yan MD - 03/17/25 17:28> Patient was evaluated and cared for in conjunction with an advanced practice practitioner. I personally examined the patient and reviewed the chart and all pertinent data including imaging, telemetry, and laboratory results. I discussed the patient in detail with the advanced practice practitioner. Please see their note for complete consult note, testing results and agreed upon plan of care for the patient. GENERAL: Patient is alert, awake and oriented x3. NECK: No JVD or carotid bruit HEART: Regular S1 and S2 LUNGS: Clear to auscultation bilaterally. EXTREMITIES: Lower extremities with out edema bilaterally. CAD/CABG Ischemic CM Chronic HFrEF - EF on echo today 37%, unchanged from prior, euvolemic VT/VF with sucessful ICD shocks IV amio, will change to oral tomorrow [facility] - schedule available for Saturday Continue Metoprolol LEAD ANDROID DEVELOPER-ICD Providers/Reason For Consult 2 Consulting Physician/Specialty*: Dr Yan, cardiology Reason for Consult*: ICD shock Requesting Physician: Dr Crouch Attending Physician: Jose Roberto Hernandez MD Primary Care Provider: Lizbeth Berrios MD History of Present Illness History of Present Illness Tank Saavedra is a 89 year old male with past medical history of atrial fibrillation, cardiomyopathy, systolic CHF (LVEF 37% in October of last year, now improved to 40% as of November of this year), status post TAVR, CAD status post CABG. Most recent coronary angiogram was in 2018 SVG to first obtuse marginal SVG to distal RCA and POTTS to first diagonal jump to mid LAD, SVG to first obtuse marginal. At that time stent was placed in the SVG to first obtuse marginal graft, collaterals from first diagonal to distal RCA and proximal RCA to distal RCA noted. He had [employer] LEAD ANDROID DEVELOPER-D placed in 2018, device went into [employer] 12/20/2024 and was replaced 01/29/2025. Settings for the new device are VVIR, lower rate 70 bpm. He has been biventricular pacing 100% up to this point. Yesterday we received a call from the patient stating he had been shocked by his LEAD ANDROID DEVELOPER-D at 0300 that morning which was the first occurrence since the device was implanted, never had a previous shock with his other LEAD ANDROID DEVELOPER-D. Interrogation of the device was received and reviewed by Dr. Forman, felt to be SVT and medication changes were made including reducing Entresto and uptitrating his beta-jacqueline. He had another shock from his LEAD ANDROID DEVELOPER-D at 0100 this morning, he came to the emergency room for further evaluation. Interrogation of the device in the emergency room showed that shock on 03/16 at 1:55 AM, after a sequence of 3 ATP, then again on 03/16 at 3AM he received a 40 J shock, 3:22 AM noted VT successfully treated with 4 sequences of ATP, monomorphic VT at 3:31 AM untreated, VF at 3:32 AM treated with 40 J shock after 3 sequences of ATP, 3:33 AM recognized as VF treated with ATP 3 sequences, then on 03/17 1 AM recognized his VF treated with 40 J shock after 3 sequences of ATP. Ventricular rates for these episodes are all 207 except for the monomorphic VT which is 168 bpm ventricular rate. He does not note any changes in his physical condition or symptoms prior to these shocks, denies chest pain or shortness of breath, edema or signs of volume overload. He notes feeling diaphoretic after the shock. He was started on amiodarone infusion in the emergency room has not had any further arrhythmias. Review of telemetry monitoring shows ventricular paced rhythm. Medications/Allergies Home Medications ?Medication ?Instructions ?Recorded ?Confirmed ?Last Taken ?Type loratadine 10 mg tablet (Claritin) 10 mg PO BEDTIME@19 00 09/12/20 03/17/25 03/16/25 History ascorbic acid (vitamin C) 1,000 mg 1 g PO BID@0700,190 0 01/17/21 03/17/25 03/16/25 History tablet cholecalciferol (vitamin D3) 25 25 mcg PO DAILY 03/17/25 03/16/25 History mcg (1,000 unit) capsule lutein 25 mg-zeaxanthin 5 mg 1 cap PO DAILY 12/26/21 0 03/17/25 03/16/25 History capsule tamsulosin 0.4 mg capsule 0.4 mg PO BEDTIME@1900 #90 c aps 02/20/22 03/17/25 03/16/25 Rx atorvastatin 40 mg tablet 40 mg PO DAILY@1900 #90 tabs 03/01/22 03/17/25 03/16/25 Rx levothyroxine 150 mcg tablet 150 mcg PO DAILY #90 tabs 03/05/22 03/17/25 03/16/25 Rx (Euthyrox) methenamine hippurate 1 gram tablet See Rx Instruction s .Route 09/05/22 03/17/25 03/16/25 Rx .COMPLEX #60 tabs nitroglycerin 0.4 mg sublingual 0.4 mg sublingual Q5M PRN Chest 09/13/22 03/17/25 01/28/25 Rx tablet (Nitrostat) Pain #30 tabs triamcinolone acetonide 55 mcg 2 spray intranasal DEREK Y PRN 04/08/23 03/17/25 01/28/25 History nasal spray aerosol (Nasacort) allergies dorzolamide 22.3 mg-timolol 6.8 1 drp ophthalmic (eye) BID 05/06/24 03/17/25 03/16/25 History mg/mL eye drops spironolactone 25 mg tablet 12.5 mg (1/2 x 25 mg) PO D AILY #90 05/29/24 03/17/25 03/16/25 Rx tabs lycopene 10 mg capsule 15 mg PO DAILY@0700 10/28/24 03/17/25 03/16/25 History metoprolol succinate 25 mg 12.5 mg (1/2 x 25 mg) PO BI D #45 03/16/25 03/17/25 03/16/25 Rx tablet,extended release 24 hr tabs sacubitril 49 mg-valsartan 51 mg 0.5 tab PO BID #120 t abs 03/16/25 03/17/25 03/16/25 Rx tablet (Entresto) furosemide 20 mg tablet 20 mg PO DAILY 03/17/2502/2303/16/25 History omega-3 fatty acids 1,000 mg 1,000 mg PO DAILY 5 03/17/25 03/16/25 History capsule Allergies Allergy/AdvReac Type Severity Reaction Status Date / Time fenofibrate Allergy Unknown Unknown Verified 02/09/25 15:27 levofloxacin Allergy Unknown Unknown Verified 02/09/25 15:27 niacin Allergy Unknown Unknown Verified 02/09/25 15:27 Current Medications Generic Name Dose Route Start Last Admin Trade Name Freq PRN Reason Stop Dose Admin Heparin Sodium (Porcine) 5,000 unit 03/17/25 06:38 03/17/25 07:43 Heparin 5,000 Unit/Ml Inj 1 Ml SUBCUT 5,000 unit Q12H DEONNA Administration AMIODARONE HCL/D5W 900 mg in 500 mls @ 0 mls/hr 03/17/25 05:41 03/17/25 07:45 Amiodarone 900 Mg/500 Ml-D5w IV 1 mg/min .Q0M DEONNA 33.33 mls/hr Protocol Administration Per Protocol Sodium Chloride 1,000 mls @ 75 mls/hr 03/17/25 06:38 03/17/25 07:45 Sodium Chloride 0.9% IV 75 mls/hr .[id number] DEONNA Administration Pantoprazole Sodium 40 mg 03/17/25 09:00 03/17/25 07:[address] 40 Mg Tablet PO 40 mg DAILY DEONNA Administration PFSH Acute 2 PFSH: Medical History Cardiac resynchronization therapy defibrillator (LEAD ANDROID DEVELOPER-D) in place CHF (congestive heart failure) Arrhythmia Urinary tract infection associated with indwelling urethral catheter, subsequent encounter History of myelodysplastic syndrome Chronic anticoagulation Clot retention of urine Hyponatremia Anemia Phimosis Urinary retention BPH (benign prostatic hyperplasia) Hypothyroidism Anticoagulation adequate with anticoagulant therapy Direct thrombin inhibitor Pradaxa Dyslipidemia Atrial fibrillation Patient has a history of recurrent GI bleed and spontaneous hematoma in the flank. So he was taken off the Pradaxa SSS (sick sinus syndrome) HTN (hypertension) ASHD (arteriosclerotic heart disease) Ischemic cardiomyopathy CKD (chronic kidney disease) Carotid stenosis, bilateral Aortic stenosis Mitral regurgitation Pulmonary HTN Surgical History H/O esophagogastroduodenoscopy (10/20/20) History of coronary artery stent placement Status post colonoscopy (10/20/20) diverticulosis, polyps S/P hernia repair S/P cataract extraction S/P CABG (coronary artery bypass graft) S/P ICD (internal cardiac defibrillator) procedure S/P TAVR (transcatheter aortic valve replacement) Family History Mother , at age 82 CAD (coronary artery disease) Father , at age 69 Stroke Social History Smoking and tobacco/nicotine status: never used tobacco/nicotine Alcohol intake: never Substance/Drug Use: never Adopted: No Caregiver/support person: No Lives independently: No Household members: spouse Marital status: Current occupational status: retired Vitals/I&O/Wt Last Vital Signs Temp 97.2 F L 03/17/25 06:59 Pulse 71 03/17/25 06:59 Resp 18 03/17/25 06:59 BP 148/92 03/17/25 06:59 Pulse Ox 99 03/17/25 06:59 O2 Del Method Room Air 03/17/25 06:59 03/16/25 03/17/25 03/17/25 22:59 06:59 14:59 Intake Total 260 / 260 Balance 260 / 260 Weight last 48 hrs Weight 170 lb 13.732 oz Weight 168 lb Physical Exam 2 Const: COMMON NORMALS: no acute distress and patient oriented x3 GENERAL APPEARANCE: cooperative and comfortable ORIENTATION/CONSCIOUSNESS: Yes awake, Yes oriented to person, Yes oriented to place and Yes oriented to time Chest: COMMONS NORMALS: normal inspection of the chest and normal palpation of entire chest wall CHEST: Yes Symmetrical chest wall rise Resp: COMMON NORMALS: normal respiratory effort, No retractions, No use of accessory muscles and clear to auscultation bilaterally EFFORT & INSPECTION: Yes symmetric chest movement AUSCULTATION: clear to auscultation bilaterally Cardio: COMMON NORMALS: regular rate, regular rhythm, S1 normal heart sound present, S2 normal heart sound present, No gallops present (Cardio), No clicks present (Cardio), No murmurs present (Cardio) and No rub (Cardio) RATE: r egular rate RHYTHM: regular rhythm HEART SOUNDS: S1 normal heart sound present and S2 normal heart sound present PERIPHERAL PULSES: radial pulses present Extremity: COMMON NORMALS: no pedal edema Neuro: COMMON NORMALS: patient oriented x3 and moves all extremities S ENSORIUM/ORIENTATION: Yes oriented to person, Yes oriented to place and Yes oriented to time Data 03/17/25 04:16 03/17/25 04:16 A&P Assessment and plan 1. Chronic systolic heart failure: 2. AICD discharge: 3. Status post transcatheter aortic valve replacement (TAVR) using bioprosthesis: 4. Cardiac resynchronization therapy defibrillator (LEAD ANDROID DEVELOPER-D) in place: 5. Atrial fibrillation: 6. ASHD (arteriosclerotic heart disease): Plan: Will continue amiodarone infusion currently at 1 mg/min. No electrolyte abnormalities noted. He may require ischemic workup this admission, if recurrence of arrhythmias noted even on amiodarone, will refer to electrophysiology for further evaluation. PDMP PDMP Reviewed: Not Reviewed Coding Level of Care Code Acute Code for [facility] Fwd Diagnoses Chronic systolic heart failure I50.22 AICD discharge Z45.02 Status post transcatheter aortic valve replacement (TAVR) using bioprosthesis Z95.3 Cardiac resynchronization therapy defibrillator (LEAD ANDROID DEVELOPER-D) in place Z95.810 Atrial fibrillation I48.91 ASHD (arteriosclerotic heart disease) I25.10
[2025-03-17 10:55] LABS: Troponin 5 6HR 31.78 ng/L (0-15)
[2025-03-17 11:03] LABS: Troponin 5 6HR Delta -2.22 ng/L (0-12)
--- NOTE | 2025-03-17 12:39 | P.PN_ITS ---
Subjective 2 Subjective: AICD discharge, now on amio drip. Vitals/I&O/Wt Last Vital Signs Temp 98.6 F 03/17/25 08:37 Pulse 71 03/17/25 09:45 Resp 18 03/17/25 09:45 BP 149/96 03/17/25 09:45 Pulse Ox 93 03/17/25 09:45 O2 Del Method Room Air 03/17/25 06:59 03/16/25 03/17/25 03/17/25 22:59 06:59 14:59 Intake Total 260 / 260 Balance 260 / 260 Weight last 48 hrs Weight 77.5 kg Weight 76.204 kg Physical Exam 2 Const: COMMON NORMALS: no acute distress, average body habitus and patient oriented x3 HENMT: COMMON NORMALS: normocephalic and atraumatic HEAD & SCALP: n ormocephalic and atraumatic Eye: COMMON NORMALS: Equal, round and reactive pupils present, EOMs intact bilaterally and no papilledema PUPIL: Yes Equal, round and reactive pupils present DIRECT OPHTHALMOSCOPY: Yes no papilledema Neck/C-Spine: COMMON NORMALS: no lymphadenopathy and supple Resp: COMMON NORMALS: normal respiratory effort, No retractions and clear to auscultation bilaterally AUSCULTATION: clear to auscultation bilaterally Cardio: COMMON NORMALS: No murmurs present (Cardio) and No rub (Cardio) R ATE: Other (paced rhythm currently) GI: COMMON NORMALS: Soft to palpation, non-tender and no masses PALPATION: Yes Soft to palpation Extremity: COMMON NORMALS: no clubbing, cyanosis or edema Neuro: COMMON NORMALS: patient oriented x3 and CN's II-XII intact bilaterally Data 03/17/25 04:16 03/17/25 04:16 A&P Assessment and plan 1. AICD discharge: Plan: 89 year old male presenting after AICD discharge. Recent replacement of device for end of life on 01/29. AICD discharges - Patient with AICD multiple discharges for V. tach V-fib - Amiodarone initiated per protocol with cardiology consultation. - Current AICD was only 6 weeks old, prior battery at EOL. - Echo ordered follow-up the result - per cardiology, may need ischemic eval, will need EP follow up. #2 History of CHF Nyha class III - Patient is not in any overt heart failure at this time. PPx: - heparin subq Diet: cardiac. Disposition - Admit to stepdown unit if there is no bed patient can be an ICU overflow - pending cardiology recs. PDMP PDMP Reviewed: Not Reviewed Attestations 2 Medical Necessity Statement*: Anticipate ongoing inpatient for AICD discharge Time Spent in Patient Care: 16 - 35 minutes (>than 50% of time sp ent in counselling and/or direct pt care on unit) . Coding Level of Care Code Acute Code for [facility] Fwd Diagnoses AICD discharge Z45.02
[2025-03-17 14:18] LABS: Hematocrit 46.1 % (37-53); Hemoglobin 14.50 g/dL (11.27-16.99); Mean Corpuscular HGB Conc 31.5 g/dL (30-55); Mean Corpuscular Hemoglobin 30.3 pg (27-33); Mean Corpuscular Volume 96.4 fl (82-101); Nucleated Red Blood Cells % 0 %; Platelet Count 101 10^3/cmm (157-399); Red Blood Count 4.78 10^6/uL (3.85-5.65); White Blood Count 8.17 10^3/uL (3.29-11.43)
[2025-03-17 14:38] LABS: Alanine Aminotransferase 23 U/L (0-41); Albumin Level 3.7 g/dL (3.5-5.2); Alkaline Phosphatase 176 U/L (40-130); Blood Urea Nitrogen 26 mg/dL (8-23); Calcium 8.8 mg/dL (8.5-10.5); Carbon Dioxide 17 mmol/L (22-29); Chloride 105 mmol/L (98-107); Creatinine Clr Calc Pharmacy 52.0058; Globulin 3.2 g/dL (1.3-4.6); Glucose 115 mg/dL (65-115); Magnesium 1.6 mg/dL (1.7-2.3); Osmolality Calculated 282 mOsm/kg (285-295); Sodium 133 mmol/L (136-145); Total Protein 6.9 g/dL (6.6-8.7)
[2025-03-17 14:46] LABS: Anion Gap 14.9 (5-19); Aspartate Amino Transferase 31 U/L (0-40); Potassium 3.9 mmol/L (3.5-5.1)
[2025-03-18] VITALS (42 sets, daily range): BP systolic 109–142; BP diastolic 63–97; PULSE 69–78; RESP 9–95; TEMP 36.5–36.9; O2SAT 92–99
[2025-03-18 04:34] LABS: Hematocrit 40.1 % (37-53); Hemoglobin 13.00 g/dL (11.27-16.99); Mean Corpuscular HGB Conc 32.4 g/dL (30-55); Mean Corpuscular Hemoglobin 29.9 pg (27-33); Mean Corpuscular Volume 92.2 fl (82-101); Nucleated Red Blood Cells % 0 %; Platelet Count 94 10^3/cmm (157-399); Red Blood Count 4.35 10^6/uL (3.85-5.65); White Blood Count 6.62 10^3/uL (3.29-11.43)
[2025-03-18 04:55] LABS: Anion Gap 12.7 (5-19); Blood Urea Nitrogen 24 mg/dL (8-23); Calcium 8.5 mg/dL (8.5-10.5); Carbon Dioxide 20 mmol/L (22-29); Chloride 107 mmol/L (98-107); Creatinine Clr Calc Pharmacy 52.0058; Glucose 104 mg/dL (65-115); Osmolality Calculated 286 mOsm/kg (285-295); Potassium 3.7 mmol/L (3.5-5.1); Sodium 136 mmol/L (136-145)
[2025-03-18] MEDS: AMIODARONE HCL/D5W 900 MG/500 ML BAG 16.67 MG IV (06:10)
[2025-03-18] MEDS: heparin 5,000 unit/mL INJ 1 mL 5000 UNIT SUBCUT ×2 (06:11→17:13)
--- NOTE | 2025-03-18 09:25 | PC.NURSE ---
Piper Fritz NP would like the amio drip stopped a hour after giving amio PO this morning.
--- NOTE | 2025-03-18 09:34 | P.PN_ITS ---
<Statement entered by Blair Yan MD - 03/18/25 17:22> Patient was evaluated and cared for in conjunction with an advanced practice practitioner. I personally saw the patient and reviewed the chart and all pertinent data. I discussed the patient in detail with the advanced practice practitioner. Please see their note for complete assessment and agreed upon plan of care for the patient. Sustained ventricular tachycardia - no recurrence since starting IV amio Change to oral amio load today C tomorrow Subjective 2 Subjective: No arrhythmia on telemetry overnight. He denies any ICD shocks. Will switch IV amiodarone to oral, start 400mg BID, turn off infusion in one hour. Vitals/I&O/Wt Last Vital Signs Temp 98.2 F 03/18/25 08:00 Pulse 70 03/18/25 08:00 Resp 19 H 03/18/25 08:00 BP 117/73 03/18/25 08:00 Pulse Ox 98 03/18/25 08:00 O2 Del Method Room Air 03/18/25 08:00 03/17/25 03/18/25 03/18/25 22:59 06:59 14:59 Intake Total 1000 / 2240.000 744.468 / 2240.000 1000 / 1000 Output Total 500 / 500 Balance 500 / 1740.000 744.468 / 2048.686 4510 / 1000 Weight last 48 hrs Weight 170 lb 13.732 oz Weight 168 lb Physical Exam 2 Const: COMMON NORMALS: no acute distress and patient oriented x3 GENERAL APPEARANCE: cooperative and comfortable ORIENTATION/CONSCIOUSNESS: Yes awake, Yes oriented to person, Yes oriented to place and Yes oriented to time Chest: COMMONS NORMALS: normal inspection of the chest and normal palpation of entire chest wall CHEST: Yes Symmetrical chest wall rise Resp: COMMON NORMALS: normal respiratory effort, No retractions, No use of accessory muscles and clear to auscultation bilaterally EFFORT & INSPECTION: Yes symmetric chest movement AUSCULTATION: clear to auscultation bilaterally Cardio: COMMON NORMALS: regular rate, regular rhythm, S1 normal heart sound present, S2 normal heart sound present, No gallops present (Cardio), No clicks present (Cardio), No murmurs present (Cardio) and No rub (Cardio) RATE: r egular rate RHYTHM: regular rhythm HEART SOUNDS: S1 normal heart sound present and S2 normal heart sound present PERIPHERAL PULSES: radial pulses present Extremity: COMMON NORMALS: no pedal edema Neuro: COMMON NORMALS: patient oriented x3 and moves all extremities S ENSORIUM/ORIENTATION: Yes oriented to person, Yes oriented to place and Yes oriented to time Data 03/18/25 03:37 03/18/25 03:37 A&P Assessment and plan 1. AICD discharge: 2. Cardiac resynchronization therapy defibrillator (STRAPPER AND BUFFER-D) in place: 3. Status post transcatheter aortic valve replacement (TAVR) using bioprosthesis: 4. Chronic systolic heart failure: 5. Atrial fibrillation: 6. ASHD (arteriosclerotic heart disease): Plan: Transitioning to oral amiodarone today. Plan for coronary angiogram at 0600 tomorrow morning. NPO after midnight tonight. Can DC IV fluids. PDMP PDMP Reviewed: Not Reviewed Attestations 2 Medical Necessity Statement*: cath tomorrow Coding Level of Care Code Acute Code for Chg Fwd Diagnoses AICD discharge Z45.02 Cardiac resynchronization therapy defibrillator (STRAPPER AND BUFFER-D) in place Z95.810 Status post transcatheter aortic valve replacement (TAVR) using bioprosthesis Z95.3 Chronic systolic heart failure I50.22 Atrial fibrillation I48.91 ASHD (arteriosclerotic heart disease) I25.10
--- NOTE | 2025-03-18 09:40 | PC.NURSE ---
Piper Fritz ordered to stop NS.
--- NOTE | 2025-03-18 10:26 | P.PN_ITS ---
Vitals/I&O/Wt Last Vital Signs Temp 98.2 F 03/18/25 08:00 Pulse 70 03/18/25 08:00 Resp 19 H 03/18/25 08:00 BP 117/73 03/18/25 08:00 Pulse Ox 98 03/18/25 08:00 O2 Del Method Room Air 03/18/25 08:00 03/17/25 03/18/25 03/18/25 22:59 06:59 14:59 Intake Total 1000 / 1495.532 744.468 / 2240.000 1240 / 1240 Output Total 500 / 500 Balance 500 / 995.532 744.468 / 9745.034 6810 / 1240 Weight last 48 hrs Weight 77.5 kg Weight 76.204 kg Physical Exam 2 Narrative: Physical Exam Const: no acute distress, average body habi tus and patient or iented x3 HENMT: normocephalic and atraumatic Eye: Equal, round and r eactive pupils pre sent, EOMs intact bilaterally and no papilledema Neck/C-Spine: no lymphadenopathy and supple Resp: normal respiratory effort, No retrac tions and clear to auscultation bila terally Cardio: No murmurs or rubs . paced rhythm GI: Soft to palpation, non-tender and no ndistended Extremity: no clubbing, cyano sis or edema Neuro: orient oriented x3 and CN's II-XII i ntact bilaterally Data 03/18/25 03:37 03/18/25 03:37 A&P Assessment and plan 1. AICD discharge: 2. Chronic systolic heart failure: Plan: 89 year old male presenting after AICD discharge. Recent replacement of device for end of life on 01/29. AICD discharges - Patient with AICD multiple discharges for V. tach V-fib - Amiodarone drip changed to oral per cardiology - Current AICD was only 6 weeks old, prior battery at EOL. - cardiology planning angiogram in the AM. #2 HFrEF History of CHF Nyha class III - Echo with moderatedly decreased LV function, akinesis of mid and basal inferior, inferolateral and anterolateral wall. EF 37%, paradoxical septal motion, similar from prior echo in November. - Patient is not in any overt heart failure at this time. PPx: - heparin subq Diet: cardiac. Disposition - Angiogram in AM. PDMP PDMP Reviewed: Not Reviewed Attestations 2 Medical Necessity Statement*: Ongoing inpatient care for pacemaker firing, HFrEF, angiogram in AM. Time Spent in Patient Care: 16 - 35 minutes (>than 50% of time sp ent in counselling and/or direct pt care on unit) . Coding Level of Care Code Acute Code for Chg Fwd Diagnoses AICD discharge Z45.02 Chronic systolic heart failure I50.22
[2025-03-18] MEDS: amiodarone 150 MG/100 ML PREMIX 400 MG IV (22:50)
[2025-03-18] MEDS: AMIODARONE HCL/D5W 900 MG/500 ML BAG 33.33 MG IV (23:12)
--- NOTE | 2025-03-18 23:43 | PC.NURSE ---
[id number] Patient arrived from [facility], bedside report received at this time. Dr. Crouch in room and gave verbal orders to start Amiodarone drip after bolus finishes infusing. BRITTANY reflected to show orders
[2025-03-18] MEDS: amiodarone 150 MG/100 ML PREMIX 400 MG (23:58)
[2025-03-19] VITALS (92 sets, daily range): BP systolic 95–146; BP diastolic 61–102; PULSE 69–154; RESP 10–29; TEMP 35.6; O2SAT 92–98
[2025-03-19 00:32] LABS: Hematocrit 46.0 % (37-53); Hemoglobin 15.00 g/dL (11.27-16.99); Mean Corpuscular HGB Conc 32.6 g/dL (30-55); Mean Corpuscular Hemoglobin 30.1 pg (27-33); Mean Corpuscular Volume 92.4 fl (82-101); Nucleated Red Blood Cells % 0 %; Platelet Count 104 10^3/cmm (157-399); Red Blood Count 4.98 10^6/uL (3.85-5.65); White Blood Count 9.09 10^3/uL (3.29-11.43)
[2025-03-19] MEDS: metoprolol succinate ER (24 HR) 25 mg Tablet PO ×2 (00:35→08:23)
[2025-03-19] MEDS: MAGNESIUM SULFATE 4 GM/100 ML 50 GM (00:36)
[2025-03-19] MEDS: lidocaine drip 2,000 MG/500 ML PREMIX 30 MG IV (00:37)
--- NOTE | 2025-03-19 00:39 | PM.PN ---
Subjective Subjective: I was called by powerhouse mechanic and ICU nurse that patient had multiple episodes of ventricular tachycardia requiring defibrillation. I immediately came to the ICU and examined the patient he was in incessant VT. Patient was started on IV amiodarone, since he continues to have VT lidocaine was added along with magnesium 4 g. Despite of that he continues to go back and forth in sustained ventricular tachycardia requiring multiple shocks, at this point p.o. metoprolol was given and patient was started on Cardizem drip. Since at the same time we were called with STEMI pager to a patient and because of the fact currently his ventricular tachycardia is not under control and he is in sinus rhythm we proceeded with ST elevation RI patient with intention to take Mr. Saavedra to [facility] once I finish STEMI. Vitals/I&O/Wt Last Vital Signs Temp 98.1 F 03/18/25 20:00 Pulse 70 03/18/25 20:00 Resp 18 03/18/25 20:00 BP 129/79 03/18/25 20:00 Pulse Ox 97 03/18/25 20:00 O2 Del Method Room Air 03/18/25 20:00 03/18/25 03/18/25 03/19/25 14:59 22:59 06:59 Intake Total 1673.349 / 1673.349 240 / 1913.349 100 / 2013.349 Output Total 676 / 676 Balance 1673.349 / 1673.349 -436 / 1237.349 100 / 1337.349 Weight last 48 hrs Weight 180 lb Weight 170 lb 13.732 oz Weight 168 lb Physical Exam Const: OTHER: GENERAL: Patient is alert, awake and oriented x3., He is in mild distress after multiple repeated shocks HEART: Regular S1 and S2. No murmur, rub or gallop. LUNGS: Clear to auscultate bilaterally. CENTRAL NERVOUS SYSTEM: Grossly nonfocal. EXTREMITIES: Lower extremities with out edema bilaterally. Data 03/19/25 00:23 03/19/25 00:23 A&P Assessment and plan 1. Ventricular tachycardia, incessant: 2. AICD discharge: 3. 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 Status post transcatheter aortic valve replacement (TAVR) using bioprosthesis: 5. Chronic systolic heart failure: 6. Persistent atrial fibrillation: 7. ASHD (arteriosclerotic heart disease): Plan: I was called by powerhouse mechanic and ICU nurse that patient had multiple episodes of ventricular tachycardia requiring defibrillation. I immediately came to the ICU and examined the patient he was in incessant VT. Patient was started on IV amiodarone, since he continues to have VT lidocaine was added along with magnesium 4 g IV slow. Despite of that he continues to go back and forth in sustained ventricular tachycardia requiring multiple shocks, at this point p.o. metoprolol was given and patient was started on Cardizem drip. I ordered for Mexiletine but it was not available in our pharmacy, At the same time we were called for STEMI who was being transferred from [facility] [place], after adding Cardizem drip patient had quite period without VT, he remained stable therefore we decided to proceed with ST elevation RI patient with intention to take Mr. Saavedra to [facility] once I finish STEMI to rule out ischemic etiology. Have detailed discussion with the patient and his family his and daughter over the phone. They clearly understand that patient is in critical condition given his comorbidities severe LV dysfunction recurrent incessant VT fraility and advanced age he is high risk for complication and worst-case scenario . Patient and his family would like to proceed with it. Patient has been explained all risk-benefit and alternative for the procedure. He understand 10 to 15% risk of stroke major bleed, understand 10 to 15% risk of minor bleeding oozing infection hematoma contrast-induced nephropathy urgent or emergent vascular or bypass surgery. He would like to proceed with that. 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
[2025-03-19] MEDS: DILTIAZEM HCL/D5W 125 MG/125 ML BAG IV (00:47)
--- NOTE | 2025-03-19 00:47 | PC.NURSE ---
Patient went in to sustained V-Tach. Patient was alert and talking when this nurse entered room. Code faraz was called overhead. Zole pads placed on patient and one shock was delivered to patient. Patient converted into paced rhythm. Patient transferred to ICU 4. Bedside report was given to Shelli GREENE. was notified with no answer, voicemail was left. Daughter was notified and voicemail left. Patient daughter did contact this nurse and was notified of situation and of transfer to ICU.
[2025-03-19 00:53] LABS: Anion Gap 17.7 (5-19); Blood Urea Nitrogen 24 mg/dL (8-23); Calcium 8.8 mg/dL (8.5-10.5); Carbon Dioxide 19 mmol/L (22-29); Chloride 106 mmol/L (98-107); Creatinine Clr Calc Pharmacy 40.9083; Glucose 114 mg/dL (65-115); Osmolality Calculated 293 mOsm/kg (285-295); Potassium 3.7 mmol/L (3.5-5.1); Sodium 139 mmol/L (136-145)
[2025-03-19 00:54] LABS: Troponin T (5th) Once 39 ng/L (0-15)
[2025-03-19 00:55] LABS: Magnesium 1.6 mg/dL (1.7-2.3)
[2025-03-19 01:01] LABS: Slide Review Slide Review Perform
--- NOTE | 2025-03-19 01:18 | XACV_ITS ---
Exam Room: [facility] Ht: 185 cm Wt: 82 kg BSA: 2.05 m2 Gender: Male : 1935 Any Known Allergies: Other Exam Priority: Routine Indication(s): - Arrhythmias - Acute coronary syndrome Procedure(s): Procedure Description: Diagnostic procedure Procedure Description: PCI procedure Procedure Description: Venous Graft Catheterization Procedure Description: POTTS Graft Catheterization Procedure Description: Drug Eluting Coronary Stent Procedure Description: PTCA Procedure Description: Miscellaneous Procedure Description: ACT Procedure Description: Coronary Angiography Dickson PASCAL; Diagnostic Cath Status: Emergency Diagnostic Findings * Circumflex has no disease. * Left Main: luminal irregularities 20% stenosis, LINDSAY: 3 flow. * Proximal Left Anterior Descending: total occlusion, LINDSAY: 0 flow. * Left Internal Mammary Artery to Mid Left Anterior Descending graft: patent. * Proximal Right Coronary Artery to Mid Right Coronary Artery: total occlusion, LINDSAY: 0 flow. * Ascending Aorta to Right Posterior AV graft: total occlusion, LINDSAY: 0 flow. * Ascending Aorta to First Obtuse Marginal Branch Segment graft: total occlusion, LINDSAY: 0 flow. * First Obtuse Marginal Branch Segment: significant 80% stenosis, LINDSAY: 3 flow. * Second Obtuse Marginal Branch Segment: severe 90% stenosis, LINDSAY: 3 flow. * Three grafts visualized. * Coronary angiography shows right dominance. PCI Status: Emergency PCI Indication: Other Interventional Findings * As above to drug-eluting stents 1 Janice 3.5 x 18 mm other 3.5 x 12 mm were deployed in mid OM and mid RCA 2 ostial OM for calcified high-grade 80% stenotic. Both stents were then postdilated with Euphora noncompliant balloon 3.5 x 8 mm. Good angiographic result LINDSAY-3 flow was noted at the end of the case.. * First Obtuse Marginal Branch Segment: 80% stenosis treated with a AB TREK 2.50X12 RX BALLOON, MDT R JANICE 3.5X18 LAVERNE, MDT BENNY EUPHORA RX [id number] BALLOON, and MDT R JANICE 3.5X12 LAVERNE. 0% residual stenosis, LINDSAY: 3 flow. Conclusions 1. 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 2. Three coronary grafts visualized: one graft patent, and two grafts occluded. 3. Patient has prior CABG. 4. First Obtuse Marginal Branch Segment was treated with a Balloon, Drug Eluting Stent, Balloon, and Drug Eluting Stent. 5. Indication for urgent left heart catheterization: Incessant ventricular tachycardia. Recommendations * 1-Return to inpatient for close monitoring and routine cath care 2-Risk factor modification for secondary prevention 3-Statin and aspirin 81 mg life-long, if tolerated 4-Patient was pre-loaded with 600 mg of Plavix, continue Plavix 75mg p.o. daily for at least one year. We will assess at the end of one year again to continue if further or not 5-Continue optimal medical management 6-Follow up with Dr. Forman in four weeks and your primary care in 10 days. Diagnostic RX Recommendation: PCI w/o planned CABG Pressures Phase:Rest AO : 113 / 67 ( 78 ) @ 11:04:34 PM 91 / 53 ( 69 ) @ 11:04:34 PM Clinical Evaluation EBL: 5mL-10mL Procedural Details Procedure Consent Obtained. Admit Source: In Patient. Current Diagnosis : ACS. Pre-Procedure Time Out. Identified patient by full name and date of as verbalized by the patient/guarantor. Does the consent match the physician's order: Yes. Accurate & Complete Informed Consent: Yes. Inpatient/Outpatient History & Physical on Chart: Yes. If H&P is completed, is and addenduem needed: No; If yes, is the addendum complete: N/A. Visualize and Verify Site with Patient/Guarantor: N/A. Relevant Radiology Images available: N/A. The risks, benefits, and alternatives of sedation and/or procedure were discussed by physician. The patient agrees to continue. Procedure started. [facility] Clinical Fraility Score: 6: Moderately Frail. Visual Journalist Indications: Cardiac Arrhythmia. Chest Pain Symptom Assessment: Atypical Angina. Cardiovascular Instability: Yes, if yes, Ventricular Arrhythmias. Correct patient, site and procedure confirmed by cath team. Current diagnosis: ACS; Incessant VT. PERRLA. Strong, equal hand property maintenance technician bilaterally. Lungs clear x 5 lobes. IV Site on Arrival: 20 gauge in the left anticubital. IV Site on Arrival: 18 gauge in the right anticubital. IV Site on Arrival: 20 gauge in the right forearm. IV Site on Arrival: 18 gauge in the left forearm. Patient on: Cardizem gtt at 5 mg/hr in right AC IV Amiodarone 1 mg/min in right forearm IV Normal Saline 75 ml/hr in left AC IV Lidocaine 2 mg/min in left forearm IV. IV Fluids: 0.9% NaCl at KVO. 200 mL infused prior to cardiac cath rn. Pre Procedural Pulses: bilateral posterior tibial was Doppled. Pre Procedural Pulses: bilateral dorsalis pedis was Doppled. Pre Procedural Pulses: bilateral radial was 2+. Oxygen started at 3liters/min via nasal canula. bilateral groins was prepped with chloroprep then draped in the usual sterile fashion. Physician notified. Baseline sample Acquired. HR: 46 BPM. Physician arrived. Physician scrubbed in. Immediate Pre-Procedure Time Out. Correct Patient: Yes; Correct Procedure: Yes; Correct Site: Yes; Correct Patient Position: Yes; Correct Supplies: Yes; Dried Flammable Prep: Yes; Blood Products Available: N/A;. Lidocaine 1% infiltrated to the right groin. AP pads on and monitoring continued from ICU. Arterial access obtained. A Right femoral angiogram was performed to determine safe placement of closure device. A 5 greenlandic JL4 catheter in over wire. Multiple views taken of left coronary artery. Catheter removed over the standard wire. A 5 greenlandic JR4 catheter in over wire. SVG to Circumflex occluded. Multiple views taken of right coronary artery. SVG to RCA known occluded. POTTS to LAD visualized. Side port of sheath attached to Normal Saline flush at KVO to maintain patency. Physician review of cine films. Catheter removed over the wire. 6 greenlandic XB 3 guide catheter was inserted over the wire. Guide seated in the LCS. ACT drawn. Results 354 seconds. Therapeutic limits - pre-heparin administration 90-150 seconds and monitoring heparin during a vascular procedure >250 seconds. Runthrough guidewire was advanced through the guide catheter to lesion in the OM. Guidewire advanced across lesion. Inflation number : 1 A AB TREK 2.50X12 RX BALLOON was prepped and advanced across the 1st Ob Michelle , then inflated to 14 ALAN for 0:15 seconds. Inflation number: 2 The AB TREK 2.50X12 RX BALLOON was reinflated across the 1st Ob Michelle, to 14 ALAN for 0:16 seconds. Inflation number: 3 The AB TREK 2.50X12 RX BALLOON was reinflated across the 1st Ob Michelle, to 14 ALAN for 0:16 seconds. Balloon out. Results checked. Inflation Number : 4 A MDT R JANICE 3.5X18 LAVERNE -Lot Number# [id number] EXP 05/10/27 was prepped and advanced across the 1st Ob Michelle. The stent was deployed at 12 ALAN for 0:18 seconds. Results checked. Stent balloon out over wire. Inflation number : 5 A MDT NC EUPHORA RX 3.93B52US BALLOON was prepped and advanced across the 1st Ob Michelle , then inflated to 12 ALAN for 0:19 seconds. Inflation number: 6 The MDT NC EUPHORA RX [id number] BALLOON was reinflated across the 1st Ob Michelle, to 14 ALAN for 0:20 seconds. Inflation number: 7 The MDT NC EUPHORA RX 3.52T22HV BALLOON was reinflated across the 1st Ob Michelle, to 10 ALAN for 0:15 seconds. Balloon out. Results checked. Inflation Number : 8 A MDT R JANICE 3.5X12 LAVERNE -Lot Number# [id number] EXP 11/11/27 was prepped and advanced across the 1st Ob Michelle. The stent was deployed at 10 ALAN for 0:22 seconds. Stent balloon out over wire. Inflation number: 9 The MDT NC EUPHORA RX 3.02H63WT BALLOON was reinflated across the 1st Ob Michelle, to 12 ALAN for 0:26 seconds. Inflation number: 10 The MDT NC EUPHORA RX [id number] BALLOON was reinflated across the 1st Ob Michelle, to 12 ALAN for 0:16 seconds. Balloon out. Results checked. Wire out. ACT drawn. Results 369 seconds. Therapeutic limits - pre-heparin administration 90-150 seconds and monitoring heparin during a vascular procedure >250 seconds. Guide catheter out. Physician review of films. [id number]. Post-op diagnosis: OCCLUDED SVG TO OM; Significan om lesions treated with 2 drug eluting stents. A Suture was successful obtaining hemostatsis at the Right Femoral artery insertion site. Sheath(s) sutured into position with 2-0 silk and sterile 4x4's and Op-site applied over the site. No oozing or signs and symptoms of hematoma noted. Arterial sheath flushed and connected to tranducer and pressure bag with heparinized saline. Post Procedure: Pulses reassessed and unchanged. PERRLA. Strong, equal hand property maintenance technician bilaterally. No VTE prophylaxis required. Medication's Wasted: Lidocaine 1% = 7 ml, Versed = 1 mg , Heparin = 4000 units, Fentanyl = 100 mcg. Total IV fluids: 250 mL. Fluoro: 20:06. Contrast type used: Visipaque 320 mgI/mL, 500 mL bottle. Complications: None. Estimated blood loss: 5mL-10mL. Responsiveness - Normal response to verbal stimuli; alert and oriented, PERRLA. Airway - Unaffected, no intervention required; spontaneous ventilation. Circulation: W/N/L, pulses unchanged. Nausea/Vomiting: No. Procedure completed. Patient transferred by bed to ICU. Vital chart was stopped. Access Site Site: Right Femoral artery Sheath Size: 6 Fr Hemostasis Method: Suture Hemostasis Success: Successful Procedure Medications Start: 2:45 AM Stop: 2:45 AM Medication: Versed Amount: 1 mg Route: I.V. Start: 3:06 AM Stop: 3:06 AM Medication: Heparin Amount: 5000 units Route: I.V. Start: 3:45 AM Stop: 3:45 AM Medication: Neosynephrine Amount: 200 mcg Route: I.V. Start: 3:47 AM Stop: 3:47 AM Medication: 0.9% Saline Amount: 250 ml Route: I.V. bolus I, the attending physician, have reviewed and verified all procedure medications. Yes, all medications given per verbal order History/Risk Factors Hypertension: Yes Dyslipidemia: Yes Peripheral Arterial Disease (PAD): No Myocardial Infarction (RI): No Obesity: No Renal Disease: Yes Tobacco Use: Never Prior Interventions PCI: Yes CABG: Yes Valve Surgery: No Date of PCI: 08/01/2017 Report Signatures Finalized by Bo Forman MD on 03/20/2025 12:52 PM
--- NOTE | 2025-03-19 02:36 | W.PM.OPSUD ---
Surgery/Procedure H&P Update DATE OF PROCEDURE: March 19, 2025 DATE H&P PERFORMED: 03/17/25 H&P UPDATE INFORMATION: I have reviewed H&P completed within last 30 days, I have examined patient prior to procedure and No changes to prior documentation PREOP DIAGNOSIS: Incessant VT PRIMARY INDICATION FOR PROCEDURE: Unstable angina Incessant VT PATIENT REASSESSED PRIOR TO SEDATION, WITH NO CHANGE NOTED: Yes PHYSICAL EXAM: alert, oriented x 3, clear to auscultation bilaterally, regular rate & rhythm and operative site marked AIRWAY EVAL/ANESTHESIA PLAN: ASA II, Risks, benefits & alternatives of sedation and/or procedure discussed and Patient agrees to continue as planned ADDITIONAL INFORMATION: Patient has been explained all risk-benefit and alternative for the procedure. Patient understand 10 to 15% risk of stroke major bleed. Patient restand 9015% risk of minor bleeding oozing infection hematoma contrast-induced nephropathy vascular or urgent CT surgery. Patient would like to proceed with that after clearly understanding it.
--- NOTE | 2025-03-19 03:01 | PC.NURSE ---
Patient left for field laborer at [id number]
--- NOTE | 2025-03-19 03:02 | PC.NURSE ---
Patient with sustained recurrent vtach with pulse starting at approximately 0000; maintained consciousness throughout. Dr. Crouch at bedside and Dr. Forman at bedside shortly therafter Patient syptomatic as evidenced by hypotension, neck vein distention, as well as flushed face Cardioversion per physician instruction at 0002, 0004, 0010, 0017, 0027, 0039, 0049, 0055 Verbal medication orders administered as reflected in the MAR
--- NOTE | 2025-03-19 04:01 | PM.PROC ---
Procedure Note: Date of procedure: 03/19/25 Pre-procedure diagnosis: Incessant VT Post-procedure diagnosis: same Procedure: Urgent left heart cath was performed Left main diffuse disease without significant stenosis LAD chronically occluded in the proximal segment Left circumflex has high-grade calcified mid stenosis at the bifurcation of the groove circumflex and large obtuse marginal branch, obtuse marginal branch also has mid high-grade stenosis RCA is known to be chronically occluded POTTS to LAD is patent SVG to RCA is known to be chronically occluded SVG to OM is occluded, it is possible the culprit vessel for ischemia since circumflex has mid and obtuse marginal had mid high-grade stenosis, which he was supplying to the obtuse marginal PCI to mid obtuse marginal with drug-eluting stent postdilated with noncompliant balloon PCI to mid circumflex with drug-eluting stent postdilated with noncompliant balloon Excellent angiographic result was noted LINDSAY-3 flow was noted No complication noted Plan: Continue IV amiodarone, continue IV lidocaine Discontinue Cardizem Load patient with 600 mg of Plavix now Load patient with 325 mg of aspirin now Sheath to be pulled out once PTT is less than 45 Dual antiplatelet therapy in the form of Plavix 75 mg and aspirin 81 mg from tomorrow for at least 1 year Full note to be dictated Coding Level of Care Code Acute Code for Rod Fwian
--- NOTE | 2025-03-19 04:34 | PC.NURSE ---
Patient back from labor gang supervisor, received verbal orders from Dr. Forman at this time to stop the Diltiazem and administer 600mg Plavix PO once patient is able to swallow.
[2025-03-19 06:25] LABS: Partial Thromboplastin Time 126.2 SECONDS (23.9-36.7)
--- NOTE | 2025-03-19 07:20 | P.MISC_ITS ---
Miscellaneous Note Purpose of Documentation: Intermittent and frequent V. tach symptomatic with shortness of breath and hypotension Note: Patient had frequent and intermittent V. tach and had to be moved to ICU room for. Patient was shocked 10 x 200 V within an hour and half cardiology Dr. Forman called Dr. Forman to the patient to [employer] Application Support Specialist and Dr. Kramer everything. Prior to that patient was on Cardizem drip on Amio drip lidocaine drip and oral beta- jacqueline none of these electrolyte optimization with magnesium we had done Patient was to be taken to cath at 6 AM this morning but rather it was then taking to cath NVI at 1 AM. The patient is not restful with no for the issues with V. tach's. Patient had pacemaker replaced with AICD on 29 January and that had been functioning and this was why the patient came to the hospital at this time because he had fired multiple time at home. An in-house during this time of V. tach V-fib the pacemaker was not discharging. Follow-up with the cardiology and do accordingly
--- NOTE | 2025-03-19 07:59 | PC.NURSE ---
Dr. Forman ordered to hold heparin dose this morning.
--- NOTE | 2025-03-19 10:58 | P.PN_ITS ---
<Statement entered by Blair Yan MD - 03/19/25 16:57> Patient was evaluated and cared for in conjunction with an advanced practice practitioner. I reviewed the chart and all pertinent data. I discussed the patient in detail with the advanced practice practitioner. Please see their note for complete assessment and agreed upon plan of care for the patient. Subjective 2 Subjective: He had multiple shocks from his LEAF STRIPPER-D overnight due to VT, taken to [facility] for coronary angiogram finding SVG to OM was occluded, treated with LAVERNE x 1, circumflex supplying the obtuse marginal also had significant stenosis treated with LAVERNE x 1. He has not had any recurrence of VT since the procedure. Continued on amiodarone infusion 0.5 mg/min. Resting comfortably in the ICU. Vitals/I&O/Wt Last Vital Signs Temp 96.0 F L 03/19/25 08:00 Pulse 70 03/19/25 08:00 Resp 18 03/19/25 08:00 BP 101/74 03/19/25 08:00 Pulse Ox 94 03/19/25 08:00 O2 Del Method Room Air 03/19/25 08:00 03/18/25 03/19/25 03/19/25 22:59 06:59 14:59 Intake Total 240 / 3188.963 1275.614 / 3188.963 561.5 / 561.5 Output Total 676 / 1026 350 / 1026 Balance -436 / 2162.963 925.614 / 2162.963 561.5 / 561.5 Weight last 48 hrs Weight 183 lb Weight 180 lb Physical Exam 2 Const: COMMON NORMALS: no acute distress and patient oriented x3 GENERAL APPEARANCE: cooperative and comfortable ORIENTATION/CONSCIOUSNESS: Yes awake, Yes oriented to person, Yes oriented to place and Yes oriented to time Chest: COMMONS NORMALS: normal inspection of the chest and normal palpation of entire chest wall CHEST: Yes Symmetrical chest wall rise Resp: COMMON NORMALS: normal respiratory effort, No retractions, No use of accessory muscles and clear to auscultation bilaterally EFFORT & INSPECTION: Yes symmetric chest movement AUSCULTATION: clear to auscultation bilaterally Cardio: COMMON NORMALS: regular rate, regular rhythm, S1 normal heart sound present, S2 normal heart sound present, No gallops present (Cardio), No clicks present (Cardio), No murmurs present (Cardio) and No rub (Cardio) RATE: r egular rate RHYTHM: regular rhythm HEART SOUNDS: S1 normal heart sound present and S2 normal heart sound present PERIPHERAL PULSES: radial pulses present Extremity: COMMON NORMALS: no pedal edema Neuro: COMMON NORMALS: patient oriented x3 and moves all extremities S ENSORIUM/ORIENTATION: Yes oriented to person, Yes oriented to place and Yes oriented to time Data 03/19/25 00:23 03/19/25 00:23 A&P Assessment and plan 1. Ventricular tachycardia, incessant: 2. AICD discharge: 3. Chronic systolic heart failure: 4. Status post transcatheter aortic valve replacement (TAVR) using bioprosthesis: 5. Cardiac resynchronization therapy defibrillator (LEAF STRIPPER-D) in place: 6. Atrial fibrillation: Plan: Doing well after stent to occluded SVG to OM and circumflex. Dr. Forman will plan to place Angio-Seal to right femoral cath site at bedside later today. Will plan to keep him on amiodarone infusion today, transition to oral amiodarone tomorrow. Continue aspirin, Plavix, metoprolol succinate 25mg daily. PDMP PDMP Reviewed: Not Reviewed Attestations 2 Medical Necessity Statement*: Stents placed due to incessant VT Coding Level of Care Code Acute Code for Chg Fwd Diagnoses Ventricular tachycardia, incessant I47.29 AICD discharge Z45.02 Chronic systolic heart failure I50.22 Status post transcatheter aortic valve replacement (TAVR) using bioprosthesis Z95.3 Cardiac resynchronization therapy defibrillator (LEAF STRIPPER-D) in place Z95.810 Atrial fibrillation I48.91
[2025-03-19 12:01] LABS: Partial Thromboplastin Time 48.5 SECONDS (23.9-36.7)
[2025-03-19] MEDS: fentaNYL 50 mcg/mL INJ 2mL 25 MCG IVP (13:42)
--- NOTE | 2025-03-19 14:09 | P.PN_ITS ---
Subjective 2 Subjective: Vtach over night. Received multiple shocks, cath with stents, currently stable, he was transferred to ICU after cath. Vitals/I&O/Wt Last Vital Signs Temp 96.0 F L 03/19/25 08:00 Pulse 71 03/19/25 12:30 Resp 22 H 03/19/25 12:30 BP 118/76 03/19/25 12:30 Pulse Ox 96 03/19/25 12:30 O2 Del Method Room Air 03/19/25 12:30 03/18/25 03/19/25 03/19/25 22:59 06:59 14:59 Intake Total 240 / 3743.995 4321.614 / 3188.963 801.5 / 801.5 Output Total 676 / 676 350 / 1026 Balance -436 / 1237.349 925.614 / 2162.963 801.5 / 801.5 Weight last 48 hrs Weight 83.007 kg Weight 81.647 kg Physical Exam 2 Narrative: Physical Exam Const: no acute distress, average body habitus and patient oriented x3 HENMT: normocephalic and atraumatic Eye: Equal, round and reactive pupils present, EOMs intact bilaterally and no papilledema Neck/C-Spine: no lymphadenopathy and supple Resp: normal respiratory effort, No retractions and clear to auscultation bilaterally Cardio: No murmurs or rubs, paced rhythm GI: Soft to palpation, non-tender and nondistended Extremity: no clubbing, cyanosis or edema Neuro: orient oriented x3 and CN's II-XII intact bilaterally Data 03/19/25 00:23 03/19/25 00:23 A&P Assessment and plan 1. AICD discharge: 2. Ventricular tachycardia, incessant: Plan: 89 year old male presenting after AICD discharge. Recent replacement of device for end of life on 01/29. AICD discharges - Patient with AICD multiple discharges for V. tach V-fib, repeat events over night. - cont. Amiodarone drip, IV lidocaine - Current AICD was only 6 weeks old, prior battery at EOL. - cardiology consulted, now s/p urgent angiogram with 2 stents - angioseal to cath site today per cardiology - cont. DAPT - cardizem discontinued - cont. metoprolol succinate 25 mg daily #2 HFrEF History of CHF Nyha class III - Echo with moderatedly decreased LV function, akinesis of mid and basal inferior, inferolateral and anterolateral wall. EF 37%, paradoxical septal motion, similar from prior echo in November. - Patient is not in any overt heart failure at this time. PPx: - heparin subq Diet: cardiac. Disposition - Monitor in ICU s/p PCI. PDMP PDMP Reviewed: Not Reviewed Attestations 2 Medical Necessity Statement*: Ogoing inpatient care s/p PCI Time Spent in Patient Care: Greater than 35 minutes (>than 50% of time spent in counselling and/or direct pt care on unit) . Critical Care Time: The high probability of a clinically significant, sudden or life threatening deterioration of the patient's [] system(s) required my full and direct attention, intervention and personal management. The critical care time is as shown. This time is in addition to time spent performing any reported procedures but includes the following: [x] Data and vital sign review and interpretation [x] Patient assessment, examination and intervention [x] Documentation [x] Medication orders and management Coding Level of Care Code Acute Code for Chg Fwd Diagnoses AICD discharge Z45.02 Ventricular tachycardia, incessant I47.29
[2025-03-19] MEDS: dorzolamide/timolol Op Soln 10 mL Btl 1 DROP EYE-LEFT (17:11)
[2025-03-19] MEDS: heparin 5,000 unit/mL INJ 1 mL 5000 UNIT SUBCUT (17:44)
--- NOTE | 2025-03-19 18:16 | PC.SOCIAL ---
*IMM* Patient received copy of important message from Medicare. forensic manager initialled and placed copy in chart.
--- NOTE | 2025-03-19 19:07 | XRR_ITS ---
PROCEDURE INFORMATION: Exam: XR Chest Exam date and time: 03/19/2025 7:45 PM Age: 89 years old Clinical indication: Shortness of breath; Prior surgery; Surgery date: 6+ months; Surgery type: Tavr. Cabg. Pacer; New onset of SOB TECHNIQUE: Imaging protocol: Radiologic exam of the chest. Views: 1 view. COMPARISON: CR (CHEST, ) 03/17/2025 3:14 AM FINDINGS: Tubes, catheters and devices: Left-sided pacemaker. Lungs: Emphysematous changes. Pleural spaces: Trace left pleural effusion. Heart/Mediastinum: Cardiomegaly. Bones/joints: Sternotomy wires. XR/XR chest 1V portable [id number] IMPRESSION: 1. Cardiomegaly. 2. Left-sided pacemaker. 3. Sternotomy wires. 4. Emphysematous changes. 5. Trace left pleural effusion.
--- NOTE | 2025-03-19 19:10 | PC.NURSE ---
SOB Patient complaining of being short of breath, 95% on RA and lung sounds clear to auscultation Dr. Crouch notified and received telephone orders at this time for a chest xray and to stop fluids
[2025-03-19] MEDS: AMIODARONE HCL/D5W 900 MG/500 ML BAG 16.67 MG IV (21:03)
[2025-03-20] VITALS (98 sets, daily range): BP systolic 84–125; BP diastolic 56–103; PULSE 68–85; RESP 14–24; TEMP 36.4–37.1; O2SAT 89–99
[2025-03-20] MEDS: DILTIAZEM HCL/D5W 125 MG/125 ML BAG IV (01:16)
--- NOTE | 2025-03-20 01:50 | PC.NURSE ---
Patient sustained a two minute run of vtach, zol pads applied and shock delivered at 0110 Dr. Forman notified and received telephone orders at this time to restart the Lidocaine and Cardizem drip; BRITTANY reflected to show orders Daughter called and updated
[2025-03-20 04:45] LABS: Hematocrit 44.2 % (37-53); Hemoglobin 14.60 g/dL (11.27-16.99); Mean Corpuscular HGB Conc 33.0 g/dL (30-55); Mean Corpuscular Hemoglobin 30.5 pg (27-33); Mean Corpuscular Volume 92.3 fl (82-101); Platelet Count 118 10^3/cmm (157-399); Red Blood Count 4.79 10^6/uL (3.85-5.65); White Blood Count 9.29 10^3/uL (3.29-11.43)
[2025-03-20 05:20] LABS: Anion Gap 18.9 (5-19); Blood Urea Nitrogen 27 mg/dL (8-23); Calcium 8.6 mg/dL (8.5-10.5); Carbon Dioxide 16 mmol/L (22-29); Chloride 107 mmol/L (98-107); Glucose 113 mg/dL (65-115); Osmolality Calculated 292 mOsm/kg (285-295); Potassium 3.9 mmol/L (3.5-5.1); Sodium 138 mmol/L (136-145)
[2025-03-20 05:25] LABS: Creatinine Clr Calc Pharmacy 41.0663
[2025-03-20 05:57] LABS: Absolute Segmented Neutrophil 6.5 10/cmm (1.6-7.1); Atypical Lymphs 8.0 % (0-5); Band Neutrophils Absolute 0.3 10^3/cmm (0.0-1.2); Giant Platelets Trace; Slide Review Slide Review Perform; Total Cells Counted 100 (0-100)
[2025-03-20 05:58] LABS: Poikilocytosis 3+
[2025-03-20 05:59] LABS: Anisocytosis 2+; Macrocytosis 1+; Microcytosis 1+; Smudge Cells 1+
[2025-03-20 06:00] LABS: Acanthocytes 1+; Crenated RBC 4+
[2025-03-20] MEDS: heparin 5,000 unit/mL INJ 1 mL 5000 UNIT SUBCUT ×2 (06:05→17:54)
[2025-03-20] MEDS: metoprolol succinate ER (24 HR) 25 mg Tablet PO (09:09)
[2025-03-20] MEDS: dorzolamide/timolol Op Soln 10 mL Btl 1 DROP EYE-LEFT ×2 (09:16→17:56)
[2025-03-20] MEDS: lidocaine drip 2,000 MG/500 ML PREMIX 30 MG IV (09:16)
--- NOTE | 2025-03-20 12:23 | PC.NURSE ---
Progress note: At 1207 Dr. Hernandez notified of change in patient mentation. Patient is able to tell me his name, date, and that he is, in the hospital having heart problems. Patient attempting to get out of bed to , go to the kitchen to get medicine. Patient reoriented to hospital setting. Patient states the year is 1955, Patient oriented to current year. Patient is still refusing meals. Bed alarm set for patient safety. Patient is in full view of nursing staff and floor staff have been notified of patients confusion and attempts to get out of bed.
--- NOTE | 2025-03-20 12:31 | P.PN_ITS ---
Subjective 2 Subjective: Patient overnight had another episode of sustained ventricular tachycardia, internal ICD is not working, he was shocked out of the rhythm into sinus successfully. Since patient was on already amiodarone drip lidocaine was added he had another episode of sustained ventricular tachycardia therefore Cardizem was added after that patient has calm down in the last several 8 to 10 hours he has not had any more episodes of VT. He appeared to be euvolemic. He denies any chest pain. Vitals/I&O/Wt Last Vital Signs Temp 97.6 F 03/20/25 08:45 Pulse 70 03/20/25 12:00 Resp 18 03/20/25 12:00 BP 100/59 03/20/25 12:00 Pulse Ox 95 03/20/25 12:00 O2 Del Method Room Air 03/20/25 12:00 03/19/25 03/20/25 03/20/25 22:59 06:59 14:59 Intake Total 1277.270 / 2078.770 0 / 2078.770 288.5 / 288.5 Output Total 425 / 425 150 / 575 100 / 100 Balance 852.270 / 1653.770 -150 / 1503.770 188.5 / 188.5 Weight last 48 hrs Weight 181 lb 9.6 oz Weight 183 lb Weight 180 lb Physical Exam 2 Const: COMMON NORMALS: alert OTHER: GENERAL: Patient is alert, awake and oriented x3. Laying in the bed feeling weak HEART: Regular S1 and S2. No murmur, rub or gallop. LUNGS: Decreased breath sound but no crackles bilaterally. CENTRAL NERVOUS SYSTEM: Grossly nonfocal. EXTREMITIES: Lower extremities with out edema bilaterally. Resp: COMMON NORMALS: clear to auscultation bilaterally AUSCULTATION: clear to auscultation bilaterally Neuro: SENSORIUM/ORIENTATION: Yes alert Data 03/20/25 03:47 03/20/25 03:47 A&P Assessment and plan 1. Ventricular tachycardia, incessant: 2. AICD discharge: 3. Chronic systolic heart failure: 4. Status post transcatheter aortic valve replacement (TAVR) using bioprosthesis: 5. Cardiac resynchronization therapy defibrillator (REAL ESTATE REPRESENTATIVE-D) in place: 6. Persistent atrial fibrillation: Plan: Doing well after stent to occluded SVG to OM and circumflex. Dr. Forman will plan to place Angio-Seal to right femoral cath site at bedside later today. Will plan to keep him on amiodarone infusion today, transition to oral amiodarone tomorrow. Continue aspirin, Plavix, metoprolol succinate 25mg daily. 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 He has patent POTTS to LAD. Ejection fraction around 40%. At this point despite of revascularization patient had multiple episode of sustained ventricular tachycardia, it appeared to me that his ICD is not working as well. Patient is on beta-jacqueline oral, IV amiodarone drip, IV lidocaine drip and Cardizem due to incessant VT, I think he may will benefit from VT ablation. We would therefore transfer the patient patient would like to go to [facility] will put a request for the transfer. Currently he is stable and had no more VT's on these drips. Continue aspirin statin Plavix PDMP PDMP Reviewed: Not Reviewed Attestations 2 Medical Necessity Statement*: Patient require continuation of hospitalization in the ICU because of above defined problems. Coding Level of Care Code Acute Code for Chg Fwd Diagnoses Ventricular tachycardia, incessant I47.29 AICD discharge Z45.02 Chronic systolic heart failure I50.22 Status post transcatheter aortic valve replacement (TAVR) using bioprosthesis Z95.3 Cardiac resynchronization therapy defibrillator (REAL ESTATE REPRESENTATIVE-D) in place Z95.810 Persistent atrial fibrillation I48.19 Atrial fibrillation type: persistent (not longstanding)
--- NOTE | 2025-03-20 15:12 | PC.NURSE ---
Progress: Daughter and at bedside state that patient occasionally becomes confused at home. Patient is able to tell me that he is in the hospital and that he is in [place]. AO to self and his family. Incorrectly states year, and continues to attempt getting out of bed stating he is going various areas of his home or that he is driving and needs to order puller. Pending transfer for cardiology.
--- NOTE | 2025-03-20 16:17 | PM.DCS ---
Discharge Providers Date of Admission: 03/17/25 05:10 Date of Discharge: March 20, 2025 Attending Provider at Admission: Faby Crouch MD Attending Provider at Discharge: Jose Roberto Hernandez MD Consults: Cardiology Primary Care Provider: Lizbteh Berrios MD Diagnoses at Discharge Discharge Diagnosis 1. Ventricular tachycardia, incessant: 2. AICD discharge: 3. Chronic systolic heart failure: 4. Status post transcatheter aortic valve replacement (TAVR) using bioprosthesis: 5. Cardiac resynchronization therapy defibrillator ([employer]D) in place: 6. Persistent atrial fibrillation: Reason for Visit Reason for Visit: Pacemaker is shocking pt Hospital Course Hospital Course 89 year old male presenting after AICD discharge. Recent replacement of device for end of life on 01/29. AICD discharges - Patient with AICD multiple discharges for V. tach V-fib, repeat events over night. - cont. Amiodarone drip, IV lidocaine - Current AICD was only 6 weeks old, prior battery at EOL. - cardiology consulted, now s/p urgent angiogram with 2 stents - cont. DAPT - cardizem discontinued - cont. metoprolol succinate 25 mg daily - patient had repeat Vtach over night requiring shocks. Stable currently. #2 HFrEF History of CHF Nyha class III - Echo with moderatedly decreased LV function, akinesis of mid and basal inferior, inferolateral and anterolateral wall. EF 37%, paradoxical septal motion, similar from prior echo in November. - Patient is not in any overt heart failure at this time. PPx: - heparin subq Diet: cardiac. Disposition - patient having repeat episodes of vtach. Per cardiology, plan to transfer to higher level of care where EP services are available - patient is currently stable for discharge once transfer bed is available. Physical Exam Narrative: Physical Exam Const: no acute distress, average body habitus and patient oriented x3 HENMT: normocephalic and atraumatic Eye: Equal, round and reactive pupils present, EOMs intact bilaterally and no papilledema Neck/C-Spine: no lymphadenopathy and supple Resp: normal respiratory effort, No retractions and clear to auscultation bilaterally Cardio: No murmurs or rubs, paced rhythm GI: Soft to palpation, non-tender and nondistended Extremity: no clubbing, cyanosis or edema Neuro: orient oriented x3 and CN's II-XII intact bilaterally Discharge Data Studies Completed and Pending Completed Studies During Hospitalization Category Date Time Status ACCOUNT MAINTENANCE REPRESENTATIVE request for service Routine Exams 03/19/25 01:18 Completed XR chest 1V portable [id number] Stat Exams 03/17/25 02:59 Completed XR chest 1V portable [id number] Stat Exams 03/19/25 19:07 Completed CV. echo complete* [id number] Stat Ultrasound 03/17/25 05:41 Completed Radiology Impressions Chest X-Ray 03/19/25 19:07 IMPRESSION: 1. Cardiomegaly. 2. Left-sided pacemaker. 3. Sternotomy wires. 4. Emphysematous changes. 5. Trace left pleural effusion. Laboratory Results WBC 9.29 10^3/uL (3.29-11.43) 03/20/25 03:47 RBC 4.79 10^6/uL (3.85-5.65) 03/20/25 03:47 Hgb 14.60 g/dL (11.27-16.99) 03/20/25 03:47 Hct 44.2 % (37-53) 03/20/25 03:47 MCV 92.3 fl (82-101) 03/20/25 03:47 MCH 30.5 pg (27-33) 03/20/25 03:47 MCHC 33.0 g/dL (30-55) 03/20/25 03:47 RDW 16.1 % (12.1-15.1) H 03/20/25 03:47 Plt Count 118 10^3/cmm (157-399) L 03/20/25 03:47 MPV 13.2 fL (7.4-10.4) H 03/20/25 03:47 Neut % (Auto) 60.9 % 03/19/25 00:23 Lymph % (Auto) Not Reportable 03/20/25 03:47 Treasure % (Auto) Not Reportable 03/20/25 03:47 Eos % (Auto) 4.1 % 03/19/25 00:23 Baso % (Auto) 0.8 % 03/19/25 00:23 Neut # (Auto) 5.54 10^3/uL (1.8-7.7) 03/19/25 00:23 Lymph # (Auto) Not Reportable 03/20/25 03:47 Treasure # (Auto) Not Reportable 03/20/25 03:47 Eos # (Auto) 0.4 10^3/uL (0.0-0.8) 03/19/25 00:23 Baso # (Auto) 0.1 10^3/uL (0.0-0.1) 03/19/25 00:23 Nucleated RBC % (auto) 0 % 03/19/25 00:23 Total Counted 100 (0-100) 03/20/25 03:47 Atypical Lymphs % 8.0 % (0-5) H 03/20/25 03:47 Absolute Neutrophils 6.8 10^3/cmm (1.4-6.5) H 03/20/25 03:47 Segmented Neutrophils 70 % 03/20/25 03:47 Band Neutrophils 3.0 % 03/20/25 03:47 Absolute Lymphocytes 1.9 10^3/cmm (1.2-3.4) 03/20/25 03:47 Lymphocytes (Manual) 12 % 03/20/25 03:47 Monocytes (Manual) 5.0 % 03/20/25 03:47 Absolute Monocytes 0.5 10^3/cmm (0.1-0.6) 03/20/25 03:47 Eosinophils (Manual) 1 % 03/20/25 03:47 Absolute Eosinophils 0.1 10^3/cmm (0.0-0.7) 03/20/25 03:47 Basophils (Manual) 0.0 % 03/20/25 03:47 Absolute Basophils 0.0 10^3/cmm (0.0-0.2) 03/20/25 03:47 Metamyelocytes 1.0 % 03/20/25 03:47 Nucleated RBCs # 0.0 /100WBC 03/19/25 00:23 Smudge Cells 1+ H 03/20/25 03:47 Platelet Estimate Normal (Normal) 03/20/25 03:47 Giant Platelets Trace 03/20/25 03:47 Poikilocytosis 3+ H 03/20/25 03:47 Anisocytosis 2+ H 03/20/25 03:47 Microcytosis 1+ H 03/20/25 03:47 Macrocytosis 1+ H 03/20/25 03:47 Crenated Cell 4+ H 03/20/25 03:47 Acanthocytes (Spur) 1+ H 03/20/25 03:47 APTT 48.5 SECONDS (23.9-36.7) H D 03/19/25 10:53 Sodium 138 mmol/L (136-145) 03/20/25 03:47 Potassium 3.9 mmol/L (3.5-5.1) 03/20/25 03:47 Chloride 107 mmol/L (98-107) 03/20/25 03:47 Carbon Dioxide 16 mmol/L (22-29) L 03/20/25 03:47 Anion Gap 18.9 (5-19) 03/20/25 03:47 BUN 27 mg/dL (8-23) H 03/20/25 03:47 Creatinine 1.3 mg/dL (0.7-1.2) H 03/20/25 03:47 GFR Calculation Not Reportable 03/20/25 03:47 Glucose 113 mg/dL (65-115) 03/20/25 03:47 Calculated Osmolality 292 mOsm/kg (285-295) 03/20/25 03:47 Calcium 8.6 mg/dL (8.5-10.5) 03/20/25 03:47 Phosphorus 3.0 mg/dL (2.5-4.5) 03/19/25 00:23 Magnesium 1.6 mg/dL (1.7-2.3) L 03/19/25 00:23 Total Bilirubin 1.0 mg/dL (0.15-1.2) 03/17/25 14:09 AST 31 U/L (0-40) 03/17/25 14:09 ALT 23 U/L (0-41) 03/17/25 14:09 Alkaline Phosphatase 176 U/L (40-130) H 03/17/25 14:09 Troponin T 5th Gen ng/L 39 ng/L (0-15) H 03/19/25 00:23 Troponin T Baseline 34 ng/L (0-15) H 03/17/25 04:16 Troponin T 120 Minute 32.23 ng/L (0-15) H 03/17/25 05:54 Delta Troponin T -1.77 ABS# (0-10) L 03/17/25 05:54 Troponin T Hi Sens 6Hr 31.78 ng/L (0-15) H 03/17/25 10:23 Troponin T Hi Sens 6Hr Delta -2.22 ng/L (0-12) L 03/17/25 10:23 Total Protein 6.9 g/dL (6.6-8.7) 03/17/25 14:09 Albumin 3.7 g/dL (3.5-5.2) 03/17/25 14:09 Globulin 3.2 g/dL (1.3-4.6) 03/17/25 14:09 Vitals Last Vital Signs Temp 98.8 F 03/20/25 14:14 Pulse 70 03/20/25 16:00 Resp 21 H 03/20/25 16:00 BP 100/72 03/20/25 16:00 Pulse Ox 96 03/20/25 16:00 O2 Del Method Room Air 03/20/25 15:45 Discharge Plan Discharge Patient Disposition: Xfer Other Condition: Stable Prescriptions: New amiodarone in dextrose 5 % 900 mg/500 mL (1.8 mg/mL) Solution 900 mg continuous IV infusion .Q0M Qty: 0 0RF alprazolam 0.5 mg Tablet 0.25 mg PO TID PRN (Reason: Anxiety) Qty: 0 0RF clopidogrel 75 mg Tablet 75 mg PO DAILY Qty: 0 0RF lidocaine in 5 % dextrose (PF) 4 mg/mL (0.4 %) Parenteral Solution 2,000 mg continuous IV infusion .Q24H Qty: 0 0RF acetaminophen 325 mg Tablet 650 mg PO Q6H PRN (Reason: Mild Pain) Qty: 0 0RF aspirin 81 mg Tablet,Delayed Release (Dr/Ec) 81 mg PO DAILY Qty: 0 0RF Continued ascorbic acid (vitamin C) 1,000 mg tablet 1 g PO BID@0700,1900 lycopene 10 mg capsule 15 mg PO DAILY@0700 loratadine [Claritin] 10 mg tablet 10 mg PO BEDTIME@1900 lutein-zeaxanthin 25-5 mg capsule 1 cap PO DAILY dorzolamide-timolol 22.3-6.8 mg/mL drops 1 drp ophthalmic (eye) BID cholecalciferol (vitamin D3) 25 mcg (1,000 unit) capsule 25 mcg PO DAILY triamcinolone acetonide [Nasacort] 55 mcg aerosol,spray 2 spray intranasal DAILY PRN (Reason: allergies) Rx Instructions: administer into each nostril nitroglycerin [Nitrostat] 0.4 mg tablet, sublingual 0.4 mg SUBLINGUAL Q5M PRN (Reason: Chest Pain) Qty: 30 2RF spironolactone 25 mg tablet 12.5 mg PO DAILY Qty: 90 3RF tamsulosin 0.4 mg capsule 0.4 mg PO BEDTIME@1900 Qty: 90 3RF atorvastatin 40 mg tablet 40 mg PO DAILY@1900 Qty: 90 4RF levothyroxine [Euthyrox] 150 mcg tablet 150 mcg PO DAILY Qty: 90 0RF methenamine hippurate 1 gram tablet See Rx Instructions .ROUTE .COMPLEX Qty: 60 6RF Dose Instruction: TAKE 1 TABLET BY MOUTH TWICE DAILY, TAKE EACH DOSE WITH 1000 MG OF VITAMIN C Rx Instructions: TAKE 1 TABLET BY MOUTH TWICE DAILY, TAKE EACH DOSE WITH 1000 MG OF VITAMIN C metoprolol succinate 25 mg tablet extended release 24 hr 12.5 mg PO BID Qty: 45 3RF sacubitril-valsartan [Entresto] 49-51 mg tablet 0.5 tab PO BID Qty: 120 0RF omega-3 fatty acids 1,000 mg Capsule 1,000 mg PO DAILY furosemide 20 mg tablet 20 mg PO DAILY Referrals: Lizbeth Berrios MD [Primary Care Provider, Internal Medicine] - 03/25/25 11:30 am Referral Note: Discharge Attestations Time Spent in Discharge Care*: greater than 30 min Specific Discharge Activities: educating patient, educating and/or supporting family/caregiver, discussing with pcp/other providers, discussing with case checker/social workers/dc planners, documenting/other paperwork and evaluating patient/reviewing data Status at Discharge: Cognitive status at discharge: moderately impaired cognition, Behavioral status at discharge: cooperative, Quality Metrics Clinical Quality Measures [ No reported AMI, CVA or VTE this stay] Coding Level of Care Code Acute Code for Chg Fwd Diagnoses Ventricular tachycardia, incessant I47.29 AICD discharge Z45.02 Chronic systolic heart failure I50.22 Status post transcatheter aortic valve replacement (TAVR) using bioprosthesis Z95.3 Cardiac resynchronization therapy defibrillator ([employer]D) in place Z95.810 Persistent atrial fibrillation I48.19 Atrial fibrillation type: persistent (not longstanding)
[2025-03-20] MEDS: FUROsemide 10 mg/mL SDV 4mL 40 MG IVP (17:21)
--- NOTE | 2025-03-20 19:06 | PC.NURSE ---
Notified Dr. Forman of patients urine output after lasix. Updated family on plans for transfer.
[2025-03-20] MEDS: esmolol drip 2,500 MG/250 ML PREMIX 24.71 MG IV (20:25)
--- NOTE | 2025-03-20 22:53 | PC.NURSE ---
Dr. Forman at bedside updating family on plan of care Received verbal orders at this time to start Esmolol and stop Cardizem as well as start Lovenox and stop Heparin. MAR reflected to show orders
[2025-03-21] VITALS (96 sets, daily range): BP systolic 84–123; BP diastolic 38–80; PULSE 69–73; RESP 12–35; TEMP 36.3–37; O2SAT 89–97
[2025-03-21] MEDS: AMIODARONE HCL/D5W 900 MG/500 ML BAG 16.67 MG IV (03:05)
[2025-03-21] MEDS: esmolol drip 2,500 MG/250 ML PREMIX 24.71 MG IV (06:07)
[2025-03-21 07:49] LABS: Alanine Aminotransferase 17 U/L (0-41); Albumin Level 3.5 g/dL (3.5-5.2); Alkaline Phosphatase 138 U/L (40-130); Blood Urea Nitrogen 37 mg/dL (8-23); Calcium 8.0 mg/dL (8.5-10.5); Carbon Dioxide 14 mmol/L (22-29); Chloride 103 mmol/L (98-107); Creatinine Clr Calc Pharmacy 29.7590; Globulin 2.6 g/dL (1.3-4.6); Glucose 86 mg/dL (65-115); Magnesium 2.0 mg/dL (1.7-2.3); Osmolality Calculated 284 mOsm/kg (285-295); Sodium 133 mmol/L (136-145); Total Protein 6.1 g/dL (6.6-8.7)
[2025-03-21 07:51] LABS: Anion Gap 20.3 (5-19); Aspartate Amino Transferase 23 U/L (0-40); Potassium 4.3 mmol/L (3.5-5.1)
[2025-03-21] MEDS: dorzolamide/timolol Op Soln 10 mL Btl 1 DROP EYE-LEFT ×2 (08:04→18:02)
[2025-03-21] MEDS: FUROsemide 10 mg/mL SDV 4mL 40 MG IVP (08:04)
[2025-03-21] MEDS: metoprolol succinate ER (24 HR) 25 mg Tablet PO (08:04)
--- NOTE | 2025-03-21 09:27 | XRR_ITS ---
PROCEDURE INFORMATION: Exam: XR Chest Exam date and time: 03/21/2025 10:08 AM Age: 89 years old Clinical indication: Other: Fluid retention; Prior surgery; Surgery date: 6+ months; Surgery type: Cabg, tavr, pacemaker; Additional info: Fluid retention; Followup TECHNIQUE: Imaging protocol: Radiologic exam of the chest. Views: 1 view. COMPARISON: CR (CHEST, ) 03/19/2025 7:45 PM FINDINGS: Tubes, catheters and devices: Unchanged left pacemaker/AICD. Lungs: New diffuse bilateral pulmonary edema and/or pneumonitis. Unchanged low lung volumes. Pleural spaces: Unremarkable. No pleural effusion. No pneumothorax. Heart/Mediastinum: Unremarkable. No cardiomegaly. Bones/joints: Nothing acute. No change. Other findings: Stable surgical changes. XR/XR chest 1V portable [id number] IMPRESSION: 1. New diffuse bilateral pulmonary edema and/or pneumonitis. 2. Unchanged low lung volumes.
[2025-03-21 09:56] LABS: Anion Gap 16.5 (5-19); Blood Urea Nitrogen 32 mg/dL (8-23); Calcium 6.1 mg/dL (8.5-10.5); Carbon Dioxide 13 mmol/L (22-29); Chloride 108 mmol/L (98-107); Creatinine Clr Calc Pharmacy 38.2615; Glucose 80 mg/dL (65-115); Osmolality Calculated 282 mOsm/kg (285-295); Potassium 4.5 mmol/L (3.5-5.1); Sodium 133 mmol/L (136-145)
--- NOTE | 2025-03-21 12:10 | P.PN_ITS ---
Subjective 2 Subjective: awaiting transfer for inpatient EP services. Vitals/I&O/Wt Last Vital Signs Temp 98.1 F 03/21/25 08:15 Pulse 70 03/21/25 08:15 Resp 18 03/21/25 08:15 BP 105/77 03/21/25 08:15 Pulse Ox 95 03/21/25 08:15 O2 Del Method Room Air 03/21/25 08:15 03/20/25 03/21/25 03/21/25 22:59 06:59 14:59 Intake Total 331.333 / 619.833 739.687 / 1359.520 215.301 / 215.301 Output Total 50 / 150 100 / 250 50 / 50 Balance 281.333 / 469.833 639.687 / 1109.520 165.301 / 165.301 Weight last 48 hrs Weight 83.007 kg Weight 82.372 kg Physical Exam 2 Narrative: Physical Exam Const: no acute distress, average body habitus and patient oriented x3 HENMT: normocephalic and atraumatic Eye: Equal, round and reactive pupils present, EOMs intact bilaterally and no papilledema Neck/C-Spine: no lymphadenopathy and supple Resp: normal respiratory effort, No retractions and clear to auscultation bilaterally Cardio: No murmurs or rubs, paced rhythm GI: Soft to palpation, non-tender and nondistended Extremity: no clubbing, cyanosis or edema Neuro: orient oriented x3 and CN's II-XII intact bilaterally Data 03/20/25 03:47 03/21/25 09:09 A&P Assessment and plan 1. Ventricular tachycardia, incessant: 2. AICD discharge: Plan: 89 year old male presenting after AICD discharge. Recent replacement of device for end of life on 01/29. AICD discharges - Patient with AICD multiple discharges for V. tach V-fib, repeat events over night. - cont. Amiodarone drip, IV lidocaine - Current AICD was only 6 weeks old, prior battery at EOL. - cardiology consulted, now s/p urgent angiogram with 2 stents - cont. DAPT - cardizem discontinued - cont. metoprolol succinate 25 mg daily - patient had repeat Vtach over night on 03/19- requiring shocks. Stable currently. No repeat Vtach last night. #2 HFrEF History of CHF Nyha class III - Echo with moderatedly decreased LV function, akinesis of mid and basal inferior, inferolateral and anterolateral wall. EF 37%, paradoxical septal motion, similar from prior echo in November. - Patient is not in any overt heart failure at this time. PPx: - heparin subq Diet: cardiac. Disposition - patient having repeat episodes of vtach. Per cardiology, plan to transfer to higher level of care where EP services are available - patient is currently stable for discharge once transfer bed is available. - having some episodes of confusion onvernight. PDMP PDMP Reviewed: Not Reviewed Attestations 2 Medical Necessity Statement*: Ongoing inpatient for vtach, awaiting transfer. Time Spent in Patient Care: 16 - 35 minutes (>than 50% of time sp ent in counselling and/or direct pt care on unit) . Coding Level of Care Code Acute Code for Chg Fwd Diagnoses Ventricular tachycardia, incessant I47.29 AICD discharge Z45.02
--- NOTE | 2025-03-21 12:31 | PM.PN ---
Subjective Subjective: Patient has 2 episode of nonsustained ventricular tachycardia last night not requiring shock [facility] and [facility] denied the transfer as [facility] does not have EP street and building decorator performing ventricular tachycardia at the same time [facility] does not have EP coverage over the weekend, they would like to discuss with patient on Saturday. I then spoke to Dr. Reeves EP street and building decorator at [place] and discussed the case in detail. At this point Dr. Revees EP street and building decorator thought that patient has been revascularized and may not requiring VT ablation she suggested continuing with amiodarone and adding esmolol and then switching to p.o. meds, she agrees to the idea of mexiletine. We are also planning to adjust pacemaker tomorrow setting ray which we can do after discussion with Dr. Reeves Vitals/I&O/Wt Last Vital Signs Temp 98.1 F 03/21/25 08:15 Pulse 70 03/21/25 08:15 Resp 18 03/21/25 08:15 BP 105/77 03/21/25 08:15 Pulse Ox 95 03/21/25 08:15 O2 Del Method Room Air 03/21/25 08:15 03/20/25 03/21/25 03/21/25 22:59 06:59 14:59 Intake Total 331.333 / 619.833 739.687 / 1359.520 215.301 / 215.301 Output Total 50 / 150 100 / 250 50 / 50 Balance 281.333 / 469.833 639.687 / 1109.520 165.301 / 165.301 Weight last 48 hrs Weight 183 lb Weight 181 lb 9.6 oz Physical Exam Const: COMMON NORMALS: alert OTHER: GENERAL: Patient is alert, awake and oriented x3. Sitting in the bed HEART: Regular S1 and S2. No murmur, rub or gallop. LUNGS: Decreased breath sound but no crackles bilaterally. CENTRAL NERVOUS SYSTEM: Grossly nonfocal. EXTREMITIES: Lower extremities with out edema bilaterally. Resp: COMMON NORMALS: clear to auscultation bilaterally AUSCULTATION: clear to auscultation bilaterally Neuro: SENSORIUM/ORIENTATION: Yes alert Data 03/20/25 03:47 03/21/25 09:09 A&P Assessment and plan 1. Ventricular tachycardia, incessant: 2. AICD discharge: 3. Chronic systolic heart failure: 4. Status post transcatheter aortic valve replacement (TAVR) using bioprosthesis: 5. Cardiac resynchronization therapy defibrillator ([employer]D) in place: 6. Persistent atrial fibrillation: Plan: Doing well after stent to occluded SVG to OM and circumflex. Dr. Forman will plan to place Angio-Seal to right femoral cath site at bedside later today. Will plan to keep him on amiodarone infusion today, transition to oral amiodarone tomorrow. Continue aspirin, Plavix, metoprolol succinate 25mg daily. On today's visit dated 03/20/2025 Patient is status post left heart catheterization noted to have chronically occluded SVG to RCA and chronically occluded RCA, interim patent graft SVG to obtuse marginal which had been stented in 2018 was closed it appeared to be the culprit 1 therefore [place] circumflex and obtuse marginal high-grade stenosis was treated with 2 drug-eluting stent with excellent angiographic result, it was thought that this may be the vessel which is culprit creating ischemia. He has patent POTTS to LAD. Ejection fraction around 40%. At this point despite of revascularization patient had multiple episode of sustained ventricular tachycardia, it appeared to me that his ICD is not working as well. Patient is on beta-jacqueline oral, IV amiodarone drip, IV lidocaine drip and Cardizem due to incessant VT, I think he may will benefit from VT ablation. We would therefore transfer the patient patient would like to go to [facility] will put a request for the transfer. Currently he is stable and had no more VT's on these drips. Continue aspirin statin Plavix On today's visit dated 03/21/2025 plan as above Switch to p.o. amiodarone 400 mg 3 times daily Increase metoprolol to today 25 mg twice daily succinate Plan to taper stop amiodarone and esmolol drip We would like to start mexiletine which is not available in the formulary therefore we have requested outpatient pharmacy Lidocaine was turned off due to confusion Renal function has slightly worsened because patient was given Lasix last night will hold Lasix for now PDMP PDMP Reviewed: Not Reviewed Attestations Medical Necessity Statement*: Patient require continuation hospitalization for above defined care Coding Level of Care Code Acute Code for Chg Fwd Diagnoses Ventricular tachycardia, incessant I47.29 AICD discharge Z45.02 Chronic systolic heart failure I50.22 Status post transcatheter aortic valve replacement (TAVR) using bioprosthesis Z95.3 Cardiac resynchronization therapy defibrillator ([employer]D) in place Z95.810 Persistent atrial fibrillation I48.19 Atrial fibrillation type: persistent (not longstanding)
[2025-03-21] MEDS: MEXILETINE 150 MG 150 EACH PO (14:09)
--- NOTE | 2025-03-21 14:09 | PC.NURSE ---
Verbal order per Dr. Forman to give mexiletine first dose early, then shut off esmolol drip shortly after. Verbal order to not give one time order of metoprolol succinate ER 25mg prior to shutting off drip.
[2025-03-22] VITALS (96 sets, daily range): BP systolic 93–133; BP diastolic 60–90; PULSE 68–86; RESP 10–32; TEMP 36.5–36.9; O2SAT 92–98
[2025-03-22 05:01] LABS: Hematocrit 40.5 % (37-53); Hemoglobin 13.70 g/dL (11.27-16.99); Mean Corpuscular HGB Conc 33.8 g/dL (30-55); Mean Corpuscular Hemoglobin 30.9 pg (27-33); Mean Corpuscular Volume 91.4 fl (82-101); Nucleated Red Blood Cells % 0 %; Platelet Count 117 10^3/cmm (157-399); Red Blood Count 4.43 10^6/uL (3.85-5.65); White Blood Count 9.76 10^3/uL (3.29-11.43)
[2025-03-22 05:27] LABS: Anion Gap 18.0 (5-19); Blood Urea Nitrogen 44 mg/dL (8-23); Calcium 8.5 mg/dL (8.5-10.5); Carbon Dioxide 15 mmol/L (22-29); Chloride 105 mmol/L (98-107); Creatinine Clr Calc Pharmacy 24.3483; Glucose 83 mg/dL (65-115); Osmolality Calculated 288 mOsm/kg (285-295); Potassium 4.0 mmol/L (3.5-5.1); Sodium 134 mmol/L (136-145)
[2025-03-22 06:52] LABS: Slide Review Slide Review Perform
[2025-03-22] MEDS: metoprolol succinate ER (24 HR) 25 mg Tablet 50 MG PO (08:38)
[2025-03-22] MEDS: dorzolamide/timolol Op Soln 10 mL Btl 1 DROP EYE-LEFT ×2 (08:39→17:08)
[2025-03-22] MEDS: MEXILETINE 150 MG 150 EACH PO ×2 (08:39→17:08)
--- NOTE | 2025-03-22 11:51 | PC.SOCIAL ---
IMM Update pg 2 of IMM Updated and reviewed w/ patient. Copy provided and copy dated, initialed and placed in chart.
--- NOTE | 2025-03-22 13:02 | PM.PN ---
Subjective Subjective: Creatinine trending up to 2.2 today. Medications: Reviewed: Yes Vitals/I&O/Wt Last Vital Signs Temp 98.1 F 03/22/25 12:00 Pulse 70 03/22/25 12:00 Resp 15 03/22/25 12:00 BP 113/68 03/22/25 12:00 Pulse Ox 95 03/22/25 12:00 O2 Del Method Room Air 03/21/25 08:15 03/21/25 03/22/25 03/22/25 22:59 06:59 14:59 Intake Total 60 / 486.572 Output Total 300 / 350 200 / 550 Balance -240 / 136.572 -200 / -63.428 Weight last 48 hrs Weight 85.729 kg Weight 83.007 kg Physical Exam Narrative: General: No acute distress, AO x3 HEENT: PERRLA, pupils bilaterally equal and reactive, pallors not present Chest: Normal vesicular breath sounds, no added sounds, equal good air entry bilaterally CVS: S1-S2 regular, no murmurs, no tachycardia, no gallops, no rubs Abdomen: Soft, nontender, no organomegaly, bowel sounds present Neuro: No focal deficits, no facial deformity, AO x3, power 5/5 in all limbs Data 03/22/25 03:54 03/22/25 03:54 A&P Assessment and plan 1. Ventricular tachycardia, incessant: 2. AICD discharge: Plan: 89 year old male presenting after AICD discharge. Recent replacement of device for end of life on 01/29. AICD discharges - Patient with AICD multiple discharges for V. tach V-fib, repeat events over night. - cont. Amiodarone drip, IV lidocaine - Current AICD was only 6 weeks old, prior battery at EOL. - cardiology consulted, now s/p urgent angiogram with 2 stents - cont. DAPT - cardizem discontinued - cont. metoprolol succinate 25 mg daily - patient had repeat Vtach over night on 03/19- requiring shocks. Stable currently. No repeat Vtach last night. #2 HFrEF History of CHF Nyha class III - Echo with moderatedly decreased LV function, akinesis of mid and basal inferior, inferolateral and anterolateral wall. EF 37%, paradoxical septal motion, similar from prior echo in November. - Patient is not in any overt heart failure at this time. PPx: - heparin subq Diet: cardiac. Disposition - patient having repeat episodes of vtach. Per cardiology, plan to transfer to higher level of care where EP services are available - patient is currently stable for discharge once transfer bed is available. - having some episodes of confusion onvernight. March 22, 2025 89 year old male with medical history significant for coronary artery disease, cardiomyopathy, A-fib, status post TAVR, arrhythmia requiring [employer]D placement, status post recent battery change 6 weeks ago. He presented to the emergency room on March 17, 2025 after having been shocked by his [employer]-D multiple times. He was evaluated by cardiology. Found to be euvolemic. Echocardiogram was 37% unchanged from prior. He was trialed on IV Amio with continuation of metoprolol. On he had multiple episodes of ventricular tachycardia requiring defibrillation. He was noted to be in incessant VT. This eventually settled with addition of magnesium, lidocaine and Cardizem. Urgent left heart cath was performed which showed multivessel disease. He underwent PCI to mid obtuse marginal with a drug-eluting stent and PCI to mid circumflex with drug-eluting stent. He has been started on aspirin and Plavix afterwards. Cardizem has since been discontinued. He was planned to be transferred to a higher level of care for EP services, however no bed was available. Case was discussed with the EP at [facility] by cardiology, they opined that patient may not need VT ablation given recent revascularization. Pacemaker settings are expected to be changed per EP recommendations today. In the interim continuing p.o. amiodarone 400 mg 3 times a day, Metoprolol at 25 mg twice a day Started on mexiletine 150mg BID Renal function noted to be worsening with creatinine at 2.2 today, likely related to recurrent episodes of V. tach and hemodynamic instability. He is off Lasix and currently ordered for normal saline. PDMP PDMP Reviewed: Not Reviewed Attestations Medical Necessity Statement*: EMILY, cr up at 2.2 today, needs IVF, needs settings asjusted on AICD Coding Level of Care Code Acute Code for Chg Fwd Diagnoses Ventricular tachycardia, incessant I47.29 AICD discharge Z45.02
--- NOTE | 2025-03-22 14:18 | XR_ITS ---
WS: [id number] XR chest 1V portable [id number] REASON FOR EXAM: breathing changes FINDINGS: The chest is essentially unchanged compared to 03/19/2025. Sternal sutures. Previous aorto coronary artery bypass. Left chest cardiac device with multiple trans left subclavian vein leads to the right atrium and right ventricle. Moderate tortuosity and ectasia of the aorta with calcification of the aortic arch. Mild cardiomegaly with mild central venous congestion. Calcified granulomatous disease. No acute pulmonary parenchymal or pleural abnormality. No findings of pulmonary edema. Left pleural effusion with left lower lung opacity which could represent pneumonitis and/or atelectasis. XR/XR chest 1V portable [id number] IMPRESSION: Stable abnormal chest. No acute abnormality.
--- NOTE | 2025-03-22 15:35 | P.PN_ITS ---
<Statement entered by Blair Yan MD - 03/22/25 17:10> Patient was evaluated and cared for in conjunction with an advanced practice practitioner. I reviewed the chart and all pertinent data. I discussed the patient in detail with the advanced practice practitioner and with Dr. Forman who covered care of patient over the weekend. Please see below note for complete assessment and agreed upon plan of care for the patient. Subjective 2 Subjective: He had some shortness of breath overnight, resolved on its own. NSVT overnight. Creatinine increased to 2.2 this morning, felt to be dry, orders for IV fluid given. Vitals/I&O/Wt Last Vital Signs Temp 98.1 F 03/22/25 12:00 Pulse 71 03/22/25 14:00 Resp 15 03/22/25 12:00 BP 113/68 03/22/25 12:00 Pulse Ox 95 03/22/25 12:00 O2 Del Method Room Air 03/21/25 08:15 03/22/25 03/22/25 03/22/25 06:59 14:59 22:59 Intake Total 733.333 / 733.333 Output Total 200 / 550 Balance -200 / -63.428 733.333 / 733.333 Weight last 48 hrs Weight 189 lb Weight 183 lb Physical Exam 2 Const: COMMON NORMALS: no acute distress and patient oriented x3 GENERAL APPEARANCE: cooperative and comfortable ORIENTATION/CONSCIOUSNESS: Yes awake, Yes oriented to person, Yes oriented to place and Yes oriented to time Chest: COMMONS NORMALS: normal inspection of the chest and normal palpation of entire chest wall CHEST: Yes Symmetrical chest wall rise Resp: COMMON NORMALS: normal respiratory effort, No retractions and No use of accessory muscles EFFORT & INSPECTION: Yes symmetric chest movement A USCULTATION: crackles (bases) Laterality: bilateral and posterior Cardio: COMMON NORMALS: regular rate, regular rhythm, S1 normal heart sound present, S2 normal heart sound present, No gallops present (Cardio), No clicks present (Cardio), No murmurs present (Cardio) and No rub (Cardio) RATE: r egular rate RHYTHM: regular rhythm HEART SOUNDS: S1 normal heart sound present and S2 normal heart sound present PERIPHERAL PULSES: radial pulses present Extremity: GENERAL: Yes edema (1+ pitting edema bilat LE below knee) Neuro: COMMON NORMALS: patient oriented x3 and moves all extremities S ENSORIUM/ORIENTATION: Yes oriented to person, Yes oriented to place and Yes oriented to time Data 03/22/25 03:54 03/22/25 03:54 A&P Assessment and plan 1. Ventricular tachycardia, incessant: 2. AICD discharge: 3. Chronic systolic heart failure: 4. Status post transcatheter aortic valve replacement (TAVR) using bioprosthesis: 5. 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 CHF (congestive heart failure), NYHA class III: 7. ASHD (arteriosclerotic heart disease): Plan: Continue amiodarone 400 TID, mexiletine 150mg BID. Plan today is to coordinate with [employer] for adjustment of pacemaker settings provided through consultation with EP Dr Reeves. PDMP PDMP Reviewed: Not Reviewed Attestations 2 Medical Necessity Statement*: medication adjustments for VT Coding Level of Care Code Acute Code for Chg Fwd Diagnoses Ventricular tachycardia, incessant I47.29 AICD discharge Z45.02 Chronic systolic heart failure I50.22 Status post transcatheter aortic valve replacement (TAVR) using bioprosthesis Z95.3 Cardiac resynchronization therapy defibrillator (SHOELACE TIPPING MACHINE OPERATOR-D) in place Z95.810 CHF (congestive heart failure), NYHA class III I50.9 ASHD (arteriosclerotic heart disease) I25.10
--- NOTE | 2025-03-22 16:06 | PC.NURSE ---
[employer] help number called at 1600 after anticipating [employer] rep arrival. Unit phone number left, awaiting call back
[2025-03-23] VITALS (68 sets, daily range): BP systolic 89–138; BP diastolic 59–95; PULSE 70–79; RESP 13–29; TEMP 36.3–36.9; O2SAT 91–98
--- NOTE | 2025-03-23 05:50 | PC.NURSE ---
Gross Hematuria noted in patient's urine, had been clear previously in this shift. Catheter is draining, and Dr. Trivedi notified. Dr. Trivedi wants medications continued and reports he is placing a ua and renal us order.
--- NOTE | 2025-03-23 05:53 | US_ITS ---
WS: [id number] RENAL ULTRASOUND HISTORY: Gross hematuria COMPARISON: 01/26/2021 TECHNIQUE: 2-D and color Doppler imaging of the kidney submitted. Right kidney: 10.8 cm x 4.6 cm x 6.3 cm. Cortex: 1.1 cm Normal size kidney. Mild increased echogenicity. No hydronephrosis. Several renal cysts are identified which are new since the prior study. The largest from the upper pole measures 3.0 x 3.3 x 3.1 cm. No solid mass identified. Left kidney: 8.8 cm x 4.8 cm x 4.6 cm. Cortex: 1.0 cm LEFT kidney is very difficult to visualize. There is a large cyst extending from the lower pole which has been previously described. Cyst measures 10.0 x 8.4 x 7.9 cm. Difficult visualizing the remaining LEFT kidney. The LEFT kidney does appear atrophied with cortical thinning. Aorta: Not visualized well. Urinary Bladder: Not distended. US/US renal BI* [id number] IMPRESSION: 1. Bilateral renal cysts. 2. Multiple new renal cysts in the RIGHT kidney with the largest measuring 3.0 x 3.3 x 3.1 cm. 3. Very poorly visualized LEFT kidney. There is mild LEFT renal atrophy and co rtical thinning. 4. Large simple cyst from the lower pole LEFT kidney has been previously descr ibed and unchanged.
--- NOTE | 2025-03-23 05:53 | P.EN_ITS ---
Event Note Event Note: Gross hematuria: Patient chart reviewed no drop in hemoglobin and stable vitals. On aspirin and clopidogrel. UA and ultrasound kidneys for further evaluation of gross hematuria Continue to monitor CBC and hematuria if clearing Event Notes Attestations Time Spent in Patient Care: less than 15 minutes (>than 50% of time spent in counselling and/or direct pt care on unit) .
[2025-03-23 06:26] LABS: Glucose Urine UA Negative (Normal); Nitrate Urine Positive (Negative); Specific Gravity, Urine 1.020 (1.005-1.030)
[2025-03-23 07:52] LABS: UA Manual Slide Review YES
[2025-03-23 07:53] LABS: Add Urine Microscopic? YES
[2025-03-23] MEDS: metoprolol succinate ER (24 HR) 25 mg Tablet 50 MG PO (08:32)
[2025-03-23] MEDS: dorzolamide/timolol Op Soln 10 mL Btl 1 DROP EYE-LEFT ×2 (08:32→17:12)
[2025-03-23] MEDS: MEXILETINE 150 MG 150 EACH PO ×2 (08:32→17:12)
--- NOTE | 2025-03-23 09:16 | P.PN_ITS ---
<Statement entered by Bo Forman MD - 03/24/25 20:29> Patient was evaluated and cared for in conjunction with an advanced practice practitioner. I personally examined the patient and reviewed the chart and all pertinent data including imaging, telemetry, and laboratory results. I discussed the patient in detail with the advanced practice practitioner. Please see their note for complete H&P testing result and agreed upon plan of care for the patient. Subjective 2 Subjective: No significant shortness of breath, appears to have atelectasis. Chest xray yesterday shows left pleural effusion, with left lower lobe atelectasis. No edema or abdominal distention. Plan is to transfer to [facility], await adjustment of pacemaker settings by EP, Dr Reeves. He self caths at home, he has Wang catheter here, noted hematuria overnight. Vitals/I&O/Wt Last Vital Signs Temp 97.9 F 03/23/25 08:00 Pulse 70 03/23/25 09:00 Resp 17 03/23/25 09:00 BP 127/88 03/23/25 09:00 Pulse Ox 97 03/23/25 09:00 O2 Del Method Room Air 03/21/25 08:15 03/22/25 03/23/25 03/23/25 22:59 06:59 14:59 Intake Total 350 / 1323.333 Output Total 300 / 625 325 / 625 Balance 50 / 698.333 -325 / 698.333 Weight last 48 hrs Weight 186 lb 11.2 oz Weight 189 lb Physical Exam 2 Const: COMMON NORMALS: no acute distress and patient oriented x3 GENERAL APPEARANCE: cooperative and comfortable ORIENTATION/CONSCIOUSNESS: Yes awake, Yes oriented to person, Yes oriented to place and Yes oriented to time Chest: COMMONS NORMALS: normal inspection of the chest and normal palpation of entire chest wall CHEST: Yes Symmetrical chest wall rise Resp: COMMON NORMALS: normal respiratory effort, No retractions and No use of accessory muscles EFFORT & INSPECTION: Yes symmetric chest movement A USCULTATION: crackles (some clear with coughing) Laterality: bilateral and posterior and diminished lung sounds on the left in the lower lung molina Cardio: COMMON NORMALS: regular rate, regular rhythm, S1 normal heart sound present, S2 normal heart sound present, No gallops present (Cardio), No clicks present (Cardio), No murmurs present (Cardio) and No rub (Cardio) RATE: r egular rate RHYTHM: regular rhythm HEART SOUNDS: S1 normal heart sound present and S2 normal heart sound present PERIPHERAL PULSES: radial pulses present Extremity: COMMON NORMALS: no pedal edema Neuro: COMMON NORMALS: patient oriented x3 and moves all extremities S ENSORIUM/ORIENTATION: Yes oriented to person, Yes oriented to place and Yes oriented to time Data 03/23/25 09:34 03/23/25 09:34 A&P Assessment and plan 1. 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 Status post transcatheter aortic valve replacement (TAVR) using bioprosthesis: 3. AICD discharge: 4. Ventricular tachycardia, incessant: 5. Chronic systolic heart failure: 6. Atrial fibrillation: Plan: Due to significant hematuria, will stop Lovenox anticoagulation. He has underlying atrial fibrillation, currently bi-ventricular pacing. Hospitalist service is monitoring CBC, renal ultrasound. Continue amiodarone, reduce to 400mg daily from TID dosing. Continue metoprolol succinate 25mg BID, may uptitrate later depending on blood pressure. Will eventually need event monitor on discharge. 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
[2025-03-23 09:57] LABS: Hematocrit 42.4 % (37-53); Hemoglobin 13.70 g/dL (11.27-16.99); Mean Corpuscular HGB Conc 32.3 g/dL (30-55); Mean Corpuscular Hemoglobin 30.3 pg (27-33); Mean Corpuscular Volume 93.8 fl (82-101); Nucleated Red Blood Cells % 0 %; Platelet Count 129 10^3/cmm (157-399); Red Blood Count 4.52 10^6/uL (3.85-5.65); White Blood Count 7.65 10^3/uL (3.29-11.43)
[2025-03-23 10:21] LABS: Alanine Aminotransferase 15 U/L (0-41); Albumin Level 3.8 g/dL (3.5-5.2); Alkaline Phosphatase 137 U/L (40-130); Anion Gap 14.8 (5-19); Aspartate Amino Transferase 17 U/L (0-40); Blood Urea Nitrogen 46 mg/dL (8-23); Calcium 8.4 mg/dL (8.5-10.5); Carbon Dioxide 16 mmol/L (22-29); Chloride 106 mmol/L (98-107); Creatinine Clr Calc Pharmacy 25.7342; Globulin 2.9 g/dL (1.3-4.6); Glucose 98 mg/dL (65-115); Osmolality Calculated 288 mOsm/kg (285-295); Potassium 3.8 mmol/L (3.5-5.1); Sodium 133 mmol/L (136-145); Total Protein 6.7 g/dL (6.6-8.7)
--- NOTE | 2025-03-23 13:15 | P.PN_ITS ---
Subjective 2 Subjective: No significant shortness of breath, appears to have atelectasis. Chest xray yesterday shows left pleural effusion, with left lower lobe atelectasis. No edema or abdominal distention. Plan is to transfer to [facility], await adjustment of pacemaker settings by EP, Dr Reeves. He self caths at home, he has Wang catheter here, noted hematuria overnight. Medications: Reviewed: Yes Vitals/I&O/Wt Last Vital Signs Temp 98.5 F 03/23/25 12:00 Pulse 70 03/23/25 12:00 Resp 17 03/23/25 12:00 BP 127/75 03/23/25 12:00 Pulse Ox 94 03/23/25 12:00 O2 Del Method Room Air 03/21/25 08:15 03/22/25 03/23/25 03/23/25 22:59 06:59 14:59 Intake Total 350 / 1323.333 300 / 300 Output Total 300 / 300 325 / 625 Balance 50 / 1023.333 -325 / 698.333 300 / 300 Weight last 48 hrs Weight 84.686 kg Weight 85.729 kg Physical Exam 2 Narrative: General: No acute distress, AO x3 HEENT: PERRLA, pupils bilaterally equal and reactive, pallors not present Chest: Normal vesicular breath sounds, no added sounds, equal good air entry bilaterally CVS: S1-S2 regular, no murmurs, no tachycardia, no gallops, no rubs Abdomen: Soft, nontender, no organomegaly, bowel sounds present Neuro: No focal deficits, no facial deformity, AO x3, power 5/5 in all limbs Data 03/23/25 09:34 03/23/25 09:34 A&P Assessment and plan 1. Ventricular tachycardia, incessant: 2. AICD discharge: Plan: 89 year old male presenting after AICD discharge. Recent replacement of device for end of life on 01/29. AICD discharges - Patient with AICD multiple discharges for V. tach V-fib, repeat events over night. - cont. Amiodarone drip, IV lidocaine - Current AICD was only 6 weeks old, prior battery at EOL. - cardiology consulted, now s/p urgent angiogram with 2 stents - cont. DAPT - cardizem discontinued - cont. metoprolol succinate 25 mg daily - patient had repeat Vtach over night on requiring shocks. Stable currently. No repeat Vtach last night. #2 HFrEF History of CHF Ny[place] class III - Echo with moderatedly decreased LV function, akinesis of mid and basal inferior, inferolateral and anterolateral wall. EF 37%, paradoxical septal motion, similar from prior echo in November. - Patient is not in any overt heart failure at this time. PPx: - heparin subq Diet: cardiac. Disposition - patient having repeat episodes of vtach. Per cardiology, plan to transfer to higher level of care where EP services are available - patient is currently stable for discharge once transfer bed is available. - having some episodes of confusion onvernight. March 22, 2025 89 year old male with medical history significant for coronary artery disease, cardiomyopathy, A-fib, status post TAVR, arrhythmia requiring TRANSLATIONAL SPECIALIST-D placement, status post recent battery change 6 weeks ago. He presented to the emergency room on March 17, 2025 after having been shocked by his TRANSLATIONAL SPECIALIST-D multiple times. He was evaluated by cardiology. Found to be euvolemic. Echocardiogram was 37% unchanged from prior. He was trialed on IV Amio with continuation of metoprolol. On he had multiple episodes of ventricular tachycardia requiring defibrillation. He was noted to be in incessant VT. This eventually settled with addition of magnesium, lidocaine and Cardizem. Urgent left heart cath was performed which showed multivessel disease. He underwent PCI to mid obtuse marginal with a drug-eluting stent and PCI to mid circumflex with drug-eluting stent. He has been started on aspirin and Plavix afterwards. Cardizem has since been discontinued. He was planned to be transferred to a higher level of care for EP services, however no bed was available. Case was discussed with the EP at [place] by cardiology, they opined that patient may not need VT ablation given recent revascularization. Pacemaker settings are expected to be changed per EP recommendations today. In the interim continuing p.o. amiodarone 400 mg 3 times a day, Metoprolol at 25 mg twice a day Started on mexiletine 150mg BID Renal function noted to be worsening with creatinine at 2.2 today, likely related to recurrent episodes of V. tach and hemodynamic instability. He is off Lasix and currently ordered for normal saline. March 23, 2025 Patient developed hematuria overnight. He will need to continue on aspirin and Plavix related to recently placed stents, however Lovenox 80 mg daily has been discontinued. This was previously added as he was noted to have A-fib on device interrogation. Metoprolol succinate to 25 mg p.o. twice daily today. Amiodarone being reduced to 400 mg p.o. daily. Continue mexiletine 150 mg p.o. twice daily. Currently has not had any ICD fires in the last 24 hours. Hemoglobin remaining stable at 13.7. Creatinine stable at 2.1. He was started on IV fluids yesterday which needed to be discontinued as a result of developing interim crackles. Urine output 625 cc last 24 hours. Closely continue to monitor. Holding off on IV fluids for now Lasix remains on hold additionally. Transfer to [facility] PDMP PDMP Reviewed: Not Reviewed Attestations 2 Medical Necessity Statement*: Amiodarone reducing, closely monitor for any recurrent VT and device firing, hematuria today which needs to be closely monitored. Discontinue Lovenox at this time. Monitoring creatinine for improvement Coding Level of Care Code Acute Code for Chg Fwd High MDM includes number and complexity of problems actively addressed during encounter, amount and/or complexity of data reviewed/ordered and described risk of complication, morbidity or mortality of management as documented Diagnoses Ventricular tachycardia, incessant I47.29 AICD discharge Z45.02
[2025-03-23] MEDS: metoprolol succinate ER (24 HR) 25 mg Tablet PO (17:12)
[2025-03-24] VITALS (7 sets, daily range): BP systolic 105–126; BP diastolic 65–88; PULSE 70–82; RESP 15–18; TEMP 36.1–36.8; O2SAT 94–100; BMI 28.9
[2025-03-24 04:10] LABS: Hematocrit 40.1 % (37-53); Hemoglobin 13.30 g/dL (11.27-16.99); Mean Corpuscular HGB Conc 33.2 g/dL (30-55); Mean Corpuscular Hemoglobin 30.4 pg (27-33); Mean Corpuscular Volume 91.8 fl (82-101); Nucleated Red Blood Cells % 0 %; Platelet Count 138 10^3/cmm (157-399); Red Blood Count 4.37 10^6/uL (3.85-5.65); White Blood Count 7.95 10^3/uL (3.29-11.43)
[2025-03-24 04:36] LABS: Alanine Aminotransferase 14 U/L (0-41); Albumin Level 3.8 g/dL (3.5-5.2); Alkaline Phosphatase 149 U/L (40-130); Anion Gap 18.8 (5-19); Aspartate Amino Transferase 16 U/L (0-40); Blood Urea Nitrogen 46 mg/dL (8-23); Calcium 8.4 mg/dL (8.5-10.5); Carbon Dioxide 15 mmol/L (22-29); Chloride 104 mmol/L (98-107); Creatinine Clr Calc Pharmacy 24.5645; Globulin 2.9 g/dL (1.3-4.6); Glucose 105 mg/dL (65-115); Osmolality Calculated 290 mOsm/kg (285-295); Potassium 3.8 mmol/L (3.5-5.1); Sodium 134 mmol/L (136-145); Total Protein 6.7 g/dL (6.6-8.7)
[2025-03-24] MEDS: metoprolol succinate ER (24 HR) 25 mg Tablet PO ×2 (05:10→16:34)
[2025-03-24] MEDS: MEXILETINE 150 MG 150 EACH PO ×2 (05:11→16:34)
[2025-03-24] MEDS: dorzolamide/timolol Op Soln 10 mL Btl 1 DROP EYE-LEFT ×2 (05:11→16:34)
--- NOTE | 2025-03-24 07:16 | PC.SOCIAL ---
IMM Update pg 2 of IMM Updated and reviewed w/ patient. Copy provided and copy dated, initialed and placed in chart.
--- NOTE | 2025-03-24 08:20 | P.PN_ITS ---
<Statement entered by Bo Forman MD - 03/24/25 20:28> Patient was evaluated and cared for in conjunction with an advanced practice practitioner. I personally examined the patient and reviewed the chart and all pertinent data including imaging, telemetry, and laboratory results. I discussed the patient in detail with the advanced practice practitioner. Please see their note for complete H&P testing result and agreed upon plan of care for the patient. Dr. Reeves was contacted, pacemaker assessment was faxed awaiting reply. In the meantime patient doing fine from cardiovascular perspective no more arrhythmia noted. Subjective 2 Subjective: No VT or OCULAR CARE TECHNICIAN-D shocks overnight. No chest pain or shortness of breath. No edema. Urine brown, no more gross blood. Urine culture shows gram-negative rods, sensitivity pending. Vitals/I&O/Wt Last Vital Signs Temp 97.0 F L 03/24/25 03:52 Pulse 70 03/24/25 03:52 Resp 17 03/24/25 03:52 BP 112/75 03/24/25 03:52 Pulse Ox 95 03/24/25 03:52 O2 Del Method Room Air 03/24/25 03:52 03/23/25 03/24/25 03/24/25 22:59 06:59 14:59 Output Total 525 / 700 175 / 700 Balance -525 / -400 -175 / -400 Weight last 48 hrs Weight 195 lb 15.855 oz Weight 186 lb 11.2 oz Physical Exam 2 Const: COMMON NORMALS: no acute distress and patient oriented x3 GENERAL APPEARANCE: cooperative and comfortable ORIENTATION/CONSCIOUSNESS: Yes awake, Yes oriented to person, Yes oriented to place and Yes oriented to time Chest: COMMONS NORMALS: normal inspection of the chest and normal palpation of entire chest wall CHEST: Yes Symmetrical chest wall rise Resp: COMMON NORMALS: normal respiratory effort, No retractions, No use of accessory muscles and clear to auscultation bilaterally EFFORT & INSPECTION: Yes symmetric chest movement AUSCULTATION: clear to auscultation bilaterally and wheezes Cardio: COMMON NORMALS: regular rate, regular rhythm, S1 normal heart sound present, S2 normal heart sound present, No gallops present (Cardio), No clicks present (Cardio), No murmurs present (Cardio) and No rub (Cardio) RATE: r egular rate RHYTHM: regular rhythm HEART SOUNDS: S1 normal heart sound present and S2 normal heart sound present PERIPHERAL PULSES: radial pulses present Extremity: COMMON NORMALS: no pedal edema Neuro: COMMON NORMALS: patient oriented x3 and moves all extremities S ENSORIUM/ORIENTATION: Yes oriented to person, Yes oriented to place and Yes oriented to time Data 03/24/25 03:48 03/24/25 03:48 A&P Assessment and plan 1. Ventricular tachycardia, incessant: 2. AICD discharge: 3. Chronic systolic heart failure: 4. Status post transcatheter aortic valve replacement (TAVR) using bioprosthesis: 5. Cardiac resynchronization therapy defibrillator (OCULAR CARE TECHNICIAN-D) in place: 6. Atrial fibrillation: 7. ASHD (arteriosclerotic heart disease): 8. Pulmonary HTN: Plan: Will discuss adjustments of pacemaker with Dr Reeves. Continue amiodarone 400mg daily, metoprolol succinate 25mg BID, aspirin, Plavix. PDMP PDMP Reviewed: Not Reviewed Attestations 2 Medical Necessity Statement*: Adjustment of pacemaker settings for incessant VT Coding Level of Care Code Acute Code for Chg Fwd Diagnoses Ventricular tachycardia, incessant I47.29 AICD discharge Z45.02 Chronic systolic heart failure I50.22 Status post transcatheter aortic valve replacement (TAVR) using bioprosthesis Z95.3 Cardiac resynchronization therapy defibrillator (OCULAR CARE TECHNICIAN-D) in place Z95.810 Atrial fibrillation I48.91 ASHD (arteriosclerotic heart disease) I25.10 Pulmonary HTN I27.20
--- NOTE | 2025-03-24 13:33 | PC.NURSE ---
Patient up walking in vickers with PT using a walker. Patient weak but did well. Noted rectangle shaped rash/discolored area on right upper shoulder. Patient denies pain or itching at this time.
--- NOTE | 2025-03-24 15:12 | PC.NURSE ---
Assisted patient back to bed at this time. Patient insisted on doing it myself . Patient demonstrated appropriate use of chair and walker. Patient got to bed with minimal assist. Family at bedside.
--- NOTE | 2025-03-24 21:18 | PM.PN ---
Subjective Subjective: Patient interval history is that of improvement. Patient had not had episode of V. tach's in the last 72 hours now on medication preference metoprolol, amiodarone and another antiarrhythmic making dual antiarrhythmic Vitals/I&O/Wt Last Vital Signs Temp 97.8 F 03/24/25 19:53 Pulse 70 03/24/25 19:53 Resp 18 03/24/25 19:53 BP 121/81 03/24/25 19:53 Pulse Ox 94 03/24/25 19:53 O2 Del Method Room Air 03/24/25 19:53 03/24/25 03/24/25 03/24/25 06:59 14:59 22:59 Intake Total 720 / 720 Output Total 175 / 700 500 / 500 Balance -175 / -400 720 / 720 -500 / 220 Weight last 48 hrs Weight 88.9 kg Weight 84.686 kg Physical Exam Narrative: Patient is relaxing in bed in no apparent distress actually told me how well she slept last night. HEENT normocephalic/atraumatic neck neck is supple cardiovascular heart rate is regular lungs are pretty much clear abdomen is soft nontender nondistended unremarkable extremities are intact no edema has good pulses neurology has no focality lab studies lab studies reviewed and noted. Data 03/24/25 03:48 03/24/25 03:48 Micro: Microbiology 03/23/25 05:55 Urine Culture - Preliminary Urine Catheterized Gram Negative Rods A&P Assessment and plan 1. Ventricular tachycardia, incessant: 2. AICD discharge: 3. Urinary tract infection associated with indwelling urethral catheter, subsequent encounter: 4. CHF (congestive heart failure), NYHA class III: 5. Acute renal failure: 6. CAD (coronary artery disease): Plan: #! Incessant ventricular tachycardia - Has resolved in the last 72 hours - Patient moved out of ICU yesterday - Patient need much monitoring - And in the setting of heart failure and diuresis creatinine had gone up significant for acute renal failure - Must continue to treat and optimize arrhythmia and renal failure #2 Acute renal failure significant for ATN due to overdiuresis - Hold diuretics - Will not give any IV fluid - Will monitor creatinine to trend down - Must continue to treat and optimize #3 Coronary artery disease - Patient status post stent placement to LAD this hospitalization - This is following shocks of 10 times for V. tach with symptomatology significant for hypotension with no perfusion to the brain - Patient post cardiac catheterization and stent placement stayed for a whole day with no recurrence of V. tach - V. tach came back and now stopped because of medications that had gone well with the patient #4 AICD functional with interrogation #5 GI and DVT prophylaxis in place #6 CHF [place] heart class III - Hold diuretics because of renal failure - Patient is doing well not hypoxemic and not dyspneic - Patient at this time is not in overt heart failure PDMP PDMP Reviewed: Not Reviewed Attestations Medical Necessity Statement*: Patient with multiple acute medical problem cardiac is continuously needing inpatient care patient is being monitored for the heart arrhythmia and treatment. Cardiology following up with other electrophysiology and this will need continuous inpatient care. Coding Level of Care Code 31200 Diagnoses Ventricular tachycardia, incessant I47.29 AICD discharge Z45.02 Urinary tract infection associated with indwelling urethral catheter, subsequent encounter T83.511D; N39.0 Encounter type: subsequent encounter Indwelling urinary catheter type: indwelling urethral catheter Urinary tract infection type: catheter-associated UTI CHF (congestive heart failure), NYHA class III I50.9 Acute renal failure N17.9 CAD (coronary artery disease) I25.10 Time Spent (min) 60
[2025-03-25 00:05] VITALS: BP 119/72; PULSE 70; RESP 14; O2SAT 93
--- NOTE | 2025-03-25 00:13 | W.PM.EVENTAC ---
Event Note Event Note: Jaciel pneumaturia with mild penile swelling Patient examined in the presence of transmission superintendent the registered nurse, having penile swelling nontender and urinary catheter in place with jaciel pneumaturia. Patient hemoglobin and vitals reviewed and stable. Ultrasound stat ordered for soft tissue/penile swelling Based on the results and further clinical assessment consider urology input Patient has been informed about the current plan of management with all the risk and benefits, agreed with the plan of care without any language barrier Event Notes Attestations Time Spent in Patient Care: 16 - 35 minutes (>than 50% of time spent in counselling and/or direct pt care on unit).
--- NOTE | 2025-03-25 01:15 | USR_ITS ---
PROCEDURE INFORMATION: Exam: US Left Limited Joint or Other Non-Vascular Extremity Structure Exam date and time: 03/25/2025 1:51 AM Age: 89 years old Clinical indication: Other: Bleeding; Additional info: Dr smith ordered, to see beneath soft tissue TECHNIQUE: Imaging protocol: US left limited joint or other nonvascular extremity structure. Real-time ultrasound with image documentation. Exam focused on the area of clinical interest. COMPARISON: US renal BI* [id number] 03/23/2025 8:32 AM FINDINGS: Grayscale and color Doppler images at the area of concern demonstrate diffuse soft tissue edema without organized hematoma or fluid collection. US/US soft tissue/extremity [id number] IMPRESSION: Grayscale and color Doppler images at the area of concern demonstrate diffuse soft tissue edema without organized hematoma or fluid collection.
--- NOTE | 2025-03-25 02:26 | PC.NURSE ---
Patient was found to have jaciel red blood dripping from catheter area. Doctor Farooq was notified and came to assess patient in room. Soft tissue ultrasound of penis area was ordered and performed.
[2025-03-25 03:04] LABS: Hematocrit 39.8 % (37-53); Hemoglobin 13.20 g/dL (11.27-16.99); Mean Corpuscular HGB Conc 33.2 g/dL (30-55); Mean Corpuscular Hemoglobin 30.8 pg (27-33); Mean Corpuscular Volume 92.8 fl (82-101); Nucleated Red Blood Cells % 0 %; Platelet Count 134 10^3/cmm (157-399); Red Blood Count 4.29 10^6/uL (3.85-5.65); White Blood Count 8.24 10^3/uL (3.29-11.43)
[2025-03-25 03:32] LABS: Alanine Aminotransferase 16 U/L (0-41); Albumin Level 3.9 g/dL (3.5-5.2); Alkaline Phosphatase 157 U/L (40-130); Anion Gap 17.9 (5-19); Aspartate Amino Transferase 18 U/L (0-40); Blood Urea Nitrogen 42 mg/dL (8-23); Calcium 8.5 mg/dL (8.5-10.5); Carbon Dioxide 15 mmol/L (22-29); Chloride 106 mmol/L (98-107); Creatinine Clr Calc Pharmacy 26.3028; Globulin 3.0 g/dL (1.3-4.6); Glucose 109 mg/dL (65-115); Osmolality Calculated 291 mOsm/kg (285-295); Potassium 3.9 mmol/L (3.5-5.1); Sodium 135 mmol/L (136-145); Total Protein 6.9 g/dL (6.6-8.7)
[2025-03-25 04:00] VITALS: BP 127/72; PULSE 70; RESP 16; TEMP 36.4; O2SAT 94
[2025-03-25] MEDS: metoprolol succinate ER (24 HR) 25 mg Tablet PO ×2 (05:18→17:19)
[2025-03-25] MEDS: dorzolamide/timolol Op Soln 10 mL Btl 1 DROP EYE-LEFT ×2 (05:18→17:18)
[2025-03-25] MEDS: MEXILETINE 150 MG 150 EACH PO ×2 (05:19→17:19)
[2025-03-25 05:20] VITALS: BMI 28.6
[2025-03-25 07:45] VITALS: BP 125/83; PULSE 76; RESP 17; TEMP 35.9
--- NOTE | 2025-03-25 10:37 | P.PN_ITS ---
<Statement entered by Bo Forman MD - 03/25/25 20:48> Patient was evaluated and cared for in conjunction with an advanced practice practitioner. I personally examined the patient and reviewed the chart and all pertinent data including imaging, telemetry, and laboratory results. I discussed the patient in detail with the advanced practice practitioner. Please see their note for complete H&P testing result and agreed upon plan of care for the patient. No overnight event except severe hematuria No ventricular tachycardia Patient tolerated medicine well GENERAL: Patient is alert, awake and oriented x3. HEART: Regular S1 and S2. No murmur, rub or gallop. LUNGS: Clear to auscultate bilaterally. CENTRAL NERVOUS SYSTEM: Grossly nonfocal. EXTREMITIES: Lower extremities with out edema bilaterally. incessant VT Congestive heart CKD Severe hematuria Hold aspirin, anticoagulation has already been discontinued continue clopidogrel since patient has recent stent Continue rest of medications including mexiletine over p.o. amiodarone and metoprolol Reassess hematuria in the morning Check CBC in a.m. Check BMP in the morning Subjective 2 Subjective: Reviewed telemetry, no VT overnight. He has gross hematuria in the Wang catheter. Cannot stop Plavix due to recent stents, but will stop aspirin. He sees urology in [place], notes he usually has some blood tinged urine when he changes out the Wang once a month, but it typically clears quickly. [place] blood with small clots present now. Vitals/I&O/Wt Last Vital Signs Temp 96.7 F L 03/25/25 07:45 Pulse 76 03/25/25 07:45 Resp 17 03/25/25 07:45 BP 125/83 03/25/25 07:45 Pulse Ox 94 03/25/25 04:00 O2 Del Method Room Air 03/25/25 04:00 03/24/25 03/25/25 03/25/25 22:59 06:59 14:59 Output Total 800 / 1050 250 / 1050 Balance -800 / -330 -250 / -330 Weight last 48 hrs Weight 193 lb 12.581 oz Weight 195 lb 15.855 oz Physical Exam 2 Const: COMMON NORMALS: no acute distress and patient oriented x3 GENERAL APPEARANCE: cooperative and comfortable ORIENTATION/CONSCIOUSNESS: Yes awake, Yes oriented to person, Yes oriented to place and Yes oriented to time Chest: COMMONS NORMALS: normal inspection of the chest and normal palpation of entire chest wall CHEST: Yes Symmetrical chest wall rise Resp: COMMON NORMALS: normal respiratory effort, No retractions, No use of accessory muscles and clear to auscultation bilaterally EFFORT & INSPECTION: Yes symmetric chest movement AUSCULTATION: clear to auscultation bilaterally Cardio: COMMON NORMALS: regular rate, regular rhythm, S1 normal heart sound present, S2 normal heart sound present, No gallops present (Cardio), No clicks present (Cardio), No murmurs present (Cardio) and No rub (Cardio) RATE: r egular rate RHYTHM: regular rhythm HEART SOUNDS: S1 normal heart sound present and S2 normal heart sound present PERIPHERAL PULSES: radial pulses present Extremity: COMMON NORMALS: no pedal edema Neuro: COMMON NORMALS: patient oriented x3 and moves all extremities S ENSORIUM/ORIENTATION: Yes oriented to person, Yes oriented to place and Yes oriented to time Data 03/25/25 02:46 03/25/25 02:46 Micro: Microbiology 03/23/25 05:55 Urine Culture - Final Urine Catheterized Enterobacter cloacae A&P Assessment and plan 1. Ventricular tachycardia, incessant: 2. AICD discharge: 3. Chronic systolic heart failure: 4. Status post transcatheter aortic valve replacement (TAVR) using bioprosthesis: 5. Cardiac resynchronization therapy defibrillator (OPEN HEARTH FURNACE OPERATOR HELPER-D) in place: 6. Atrial fibrillation: 7. Anemia: Plan: Working with EP Dr Reeves for adjustment of OPEN HEARTH FURNACE OPERATOR HELPER-D settings. Continue mexiletine 150mg BID, amiodarone 400mg daily, metoprolol succinate 25mg BID. Cannot stop Plavix but will stop aspirin, may need to get input of his urologist. PDMP PDMP Reviewed: Not Reviewed Attestations 2 Medical Necessity Statement*: hematuria, VT Coding Level of Care Code Acute Code for [facility] Fwd Diagnoses Ventricular tachycardia, incessant I47.29 AICD discharge Z45.02 Chronic systolic heart failure I50.22 Status post transcatheter aortic valve replacement (TAVR) using bioprosthesis Z95.3 Cardiac resynchronization therapy defibrillator (OPEN HEARTH FURNACE OPERATOR HELPER-D) in place Z95.810 Atrial fibrillation I48.91 Anemia D64.9
[2025-03-25 12:00] VITALS: BP 119/77; PULSE 71; RESP 18; TEMP 36.4; O2SAT 96
--- NOTE | 2025-03-25 13:18 | PM.PN ---
Subjective Subjective: Patient is doing well no further V. tach's. However patient has a new event of gross hematuria overnight Wang catheter is being flushed looking into a three-way catheter at this time for appropriate flushing aspirin held patient must continue his Plavix for he is recently stented just last week to LAD denies any complaints at this time. Hemodynamically stable. Creatinine March 18 was 1. Today is 2.1 we hope to get patient to the baseline creatinine. If patient loses so much blood it will impound on the renal function will monitor and optimize accordingly Vitals/I&O/Wt Last Vital Signs Temp 97.6 F 03/25/25 12:00 Pulse 71 03/25/25 12:00 Resp 18 03/25/25 12:00 BP 119/77 03/25/25 12:00 Pulse Ox 96 03/25/25 12:00 O2 Del Method Room Air 03/25/25 12:00 03/24/25 03/25/25 03/25/25 22:59 06:59 14:59 Output Total 800 / 800 250 / 1050 Balance -800 / -80 -250 / -330 Weight last 48 hrs Weight 87.9 kg Weight 88.9 kg Physical Exam Narrative: Generally patient is well doing well sitting up in chair smiling denies any complaints slept well last night HEENT normocephalic atraumatic neck neck is supple cardiovascular heart rate is regular lungs are pretty much clear abdomen soft nontender nondistended unremarkable extremities are intact no edema has good pulses neurology has no focality lab studies lab studies reviewed and noted. Data 03/25/25 02:46 03/25/25 02:46 Micro: Microbiology 03/23/25 05:55 Urine Culture - Final Urine Catheterized Enterobacter cloacae A&P Assessment and plan 1. Acute renal failure: 2. CAD (coronary artery disease): 3. CHF (congestive heart failure), NYHA class III: 4. Ventricular tachycardia, incessant: 5. Gross hematuria: 6. AICD discharge: 7. Urinary tract infection associated with indwelling urethral catheter, subsequent encounter: 8. Chronic systolic heart failure: 9. Cardiac resynchronization therapy defibrillator (CLINICAL APPEALS AUDITOR-D) in place: Plan: Patient with frequent V. tach/CAD/chronic heart failure/gross hematuria - Patient transferred out from ICU to stepdown unit just yesterday since V. tach had been optimized - No further frequent V. tach's on beta-jacqueline, amiodarone, Plavix and aspirin - Aspirin held at this time because of new gross hematuria started last night. Must continue Plavix - Patient with recent stent placement just last week to LAD - Case has been discussed with Dr. Forman and he is in agreement - Must continue to treat and optimize - Patient is in ATN because of overly diuresis and now Lasix has been held while renal function recovers - Patient baseline creatinine is 0.9-1. And this is as of last week 03/18/2025 Rate limiting step is the hematuria - Once patient stopped bleeding then it would be time to discharge to follow-up outpatient with cardiology - Will must make sure that the creatinine continues to trend down to baseline prior to discharge - Maintain good hemoglobin hemoglobin today is 13 again I doubt FOR this could be from volume contraction. Because patient is having much blood loss anemia CAD - Recent stent placement LAD just last week - Must continue Plavix even in the face of gross hematuria - Aspirin must be held and had been discontinued by cardiology If patient does well disposition could be tomorrow but again the rate limiting step is gross hematuria and renal function PDMP PDMP Reviewed: Not Reviewed Attestations Medical Necessity Statement*: Patient with multiple medical problem concerning V. tach with AICD in place/CAD/heart failure chronic - Frequent V. tach's had resolved on amiodarone and beta-jacqueline Plavix and aspirin - Aspirin had been held at this time because of his gross hematuria as of last night till now. Patient continued to meet inpatient Coding Level of Care Code 38597 Diagnoses Acute renal failure N17.9 CAD (coronary artery disease) I25.10 CHF (congestive heart failure), NYHA class III I50.9 Ventricular tachycardia, incessant I47.29 Gross hematuria R31.0 AICD discharge Z45.02 Urinary tract infection associated with indwelling urethral catheter, subsequent encounter T83.511D; N39.0 Encounter type: subsequent encounter Indwelling urinary catheter type: indwelling urethral catheter Urinary tract infection type: catheter-associated UTI Chronic systolic heart failure I50.22 Cardiac resynchronization therapy defibrillator (CLINICAL APPEALS AUDITOR-D) in place Z95.810 Time Spent (min) 40
--- NOTE | 2025-03-25 15:46 | PC.NURSE ---
I was called to CSU to assist with 3-way catheter with intermittent irrigation. I presented to patient's room and Karma Lala RN was present and had placed 3-way catheter. She stated that Dr. Crouch had ordered intermittent irrigation until clear, however she was unable to flush it effectively without the syringe coming off the end of the lacy. I obtained more sterile water and a 60 mL cath tip syringe and was able to flush lacy with only slight initial resistance. After flushing with the first syringe, the urine still contained jaciel blood that was not clear. I continued manual irrigation up to 400 mL and urine ran clear initially, then immediately was jaciel blood again. Lizzie had attempted to call Dr. Crouch at bedside but there had been no response back yet. I called and spoke with her at 1532 and reviewed my assessment of urine with her as well as informed her of manual irrigation amount. I requested to initiate CBI to attempt to get the urine to run clear more consistently without the presence of clots as well as a KUB to ensure there wasn't trauma or other issues causing the bleeding. She states that she had requested a 3-way lacy, which means I wanted it continuously. I explained that 3-way foleys can be utilized for both intermittent, manual as well as continuous bladder irrigation. She states she doesn't think a KUB is necessary at this time, that he is only bleeding d/t low platelets and receiving anticoagulants, however patient had his lacy in place upon admission up until 3-way was place today, so no trauma has occurred to the urinary tract up until this point. I verbalized understanding and placed order for CBI and reviewed procedure with primary nurse, Lizzie. Will continue to monitor condition of urine and will call with further issues.
[2025-03-25 17:41] VITALS: BP 131/81; PULSE 73; RESP 14; O2SAT 100
--- NOTE | 2025-03-25 19:15 | PC.NURSE ---
At the end of my shift patient has had 4 bags of continuos irrigation and a total output of 13,275 and total intake of 10,800 through CBI. Color at the end of my shift is light david, grapefruit juice color.
[2025-03-25 19:26] VITALS: BP 131/88; PULSE 70; RESP 17; TEMP 36.6; O2SAT 99
[2025-03-25 19:27] LABS: Hematocrit 42.7 % (37-53); Hemoglobin 13.60 g/dL (11.27-16.99); Mean Corpuscular HGB Conc 31.9 g/dL (30-55); Mean Corpuscular Hemoglobin 30.9 pg (27-33); Mean Corpuscular Volume 97.0 fl (82-101); Nucleated Red Blood Cells % 0 %; Platelet Count 151 10^3/cmm (157-399); Red Blood Count 4.40 10^6/uL (3.85-5.65); White Blood Count 9.71 10^3/uL (3.29-11.43)
[2025-03-25 19:39] LABS: Alanine Aminotransferase 18 U/L (0-41); Albumin Level 4.1 g/dL (3.5-5.2); Alkaline Phosphatase 164 U/L (40-130); Blood Urea Nitrogen 41 mg/dL (8-23); Calcium 8.8 mg/dL (8.5-10.5); Carbon Dioxide 16 mmol/L (22-29); Chloride 107 mmol/L (98-107); Creatinine Clr Calc Pharmacy 26.1679; Globulin 3.4 g/dL (1.3-4.6); Glucose 102 mg/dL (65-115); Osmolality Calculated 294 mOsm/kg (285-295); Sodium 137 mmol/L (136-145); Total Protein 7.5 g/dL (6.6-8.7)
[2025-03-25 19:45] LABS: Anion Gap 18.6 (5-19); Aspartate Amino Transferase 26 U/L (0-40); Potassium 4.6 mmol/L (3.5-5.1)
[2025-03-26] VITALS: BP 130/89; PULSE 70; RESP 17; O2SAT 95
[2025-03-26 03:18] LABS: Hematocrit 41.1 % (37-53); Hemoglobin 13.50 g/dL (11.27-16.99); Red Blood Count 4.41 10^6/uL (3.85-5.65); White Blood Count 8.54 10^3/uL (3.29-11.43)
[2025-03-26 03:19] LABS: Mean Corpuscular HGB Conc 32.8 g/dL (30-55); Mean Corpuscular Hemoglobin 30.6 pg (27-33); Mean Corpuscular Volume 93.2 fl (82-101); Nucleated Red Blood Cells % 0 %; Platelet Count 129 10^3/cmm (157-399)
[2025-03-26 03:57] LABS: Alanine Aminotransferase 15 U/L (0-41); Albumin Level 3.9 g/dL (3.5-5.2); Alkaline Phosphatase 159 U/L (40-130); Anion Gap 18.0 (5-19); Aspartate Amino Transferase 17 U/L (0-40); Blood Urea Nitrogen 39 mg/dL (8-23); Calcium 8.6 mg/dL (8.5-10.5); Carbon Dioxide 17 mmol/L (22-29); Chloride 108 mmol/L (98-107); Creatinine Clr Calc Pharmacy 27.4763; Globulin 3.0 g/dL (1.3-4.6); Glucose 116 mg/dL (65-115); Osmolality Calculated 298 mOsm/kg (285-295); Potassium 4.0 mmol/L (3.5-5.1); Sodium 139 mmol/L (136-145); Total Protein 6.9 g/dL (6.6-8.7)
[2025-03-26 04:00] VITALS: BP 115/73; PULSE 70; RESP 11; TEMP 37.2; O2SAT 96
[2025-03-26 06:00] VITALS: PULSE 70
[2025-03-26] MEDS: dorzolamide/timolol Op Soln 10 mL Btl 1 DROP EYE-LEFT (06:11)
[2025-03-26] MEDS: metoprolol succinate ER (24 HR) 25 mg Tablet PO (06:12)
[2025-03-26] MEDS: MEXILETINE 150 MG 150 EACH PO (06:12)
--- NOTE | 2025-03-26 06:34 | PC.NURSE ---
Patient had 4 L irrigation added: [id number] Had [id number] output: 1175 urine output. CBI documentation would not let me enter [id number].
[2025-03-26 07:43] VITALS: BP 121/85; PULSE 70; RESP 12; TEMP 36.6; O2SAT 96
--- NOTE | 2025-03-26 10:21 | PC.SOCIAL ---
IMM Update pg 2 of IMM updated and reviewed w/ patient. Copy provided and copy dated, initialed and placed in chart.
--- NOTE | 2025-03-26 10:25 | P.PN_ITS ---
<Statement entered by Bo Forman MD - 04/04/25 19:59> Patient was evaluated and cared for in conjunction with an advanced practice practitioner. I personally examined the patient and reviewed the chart and all pertinent data including imaging, telemetry, and laboratory results. I discussed the patient in detail with the advanced practice practitioner. Please see their note for complete H&P testing result and agreed upon plan of care for the patient. Subjective 2 Subjective: He did not have any runs of VT overnight. He continues to have hematuria and Wang catheter. Hospital service has recommended transfer to [place] for urology evaluation. Vitals/I&O/Wt Last Vital Signs Temp 97.8 F 03/26/25 07:43 Pulse 70 03/26/25 07:43 Resp 12 03/26/25 07:43 BP 121/85 03/26/25 07:43 Pulse Ox 96 03/26/25 07:43 O2 Del Method Room Air 03/26/25 07:43 03/25/25 03/26/25 03/26/25 22:59 06:59 14:59 Intake Total 520 / 920 400 / 920 120 / 120 Output Total 0 / 2225 2225 / 2225 Balance 520 / -1305 -1825 / -1305 120 / 120 Weight last 48 hrs Weight 203 lb 14.841 oz Weight 193 lb 12.581 oz Physical Exam 2 Const: COMMON NORMALS: no acute distress and patient oriented x3 GENERAL APPEARANCE: cooperative and comfortable ORIENTATION/CONSCIOUSNESS: Yes awake, Yes oriented to person, Yes oriented to place and Yes oriented to time Chest: COMMONS NORMALS: normal inspection of the chest and normal palpation of entire chest wall CHEST: Yes Symmetrical chest wall rise Resp: COMMON NORMALS: normal respiratory effort, No retractions, No use of accessory muscles and clear to auscultation bilaterally EFFORT & INSPECTION: Yes symmetric chest movement AUSCULTATION: clear to auscultation bilaterally Cardio: COMMON NORMALS: regular rate, regular rhythm, S1 normal heart sound present, S2 normal heart sound present, No gallops present (Cardio), No clicks present (Cardio), No murmurs present (Cardio) and No rub (Cardio) RATE: r egular rate RHYTHM: regular rhythm HEART SOUNDS: S1 normal heart sound present and S2 normal heart sound present PERIPHERAL PULSES: radial pulses present Extremity: COMMON NORMALS: no pedal edema Neuro: COMMON NORMALS: patient oriented x3 and moves all extremities S ENSORIUM/ORIENTATION: Yes oriented to person, Yes oriented to place and Yes oriented to time Data 03/26/25 02:53 03/26/25 02:53 Micro: Microbiology 03/23/25 05:55 Urine Culture - Final Urine Catheterized Enterobacter cloacae A&P Assessment and plan 1. Ventricular tachycardia, incessant: 2. CAD (coronary artery disease): 3. AICD discharge: 4. Chronic systolic heart failure: 5. Status post transcatheter aortic valve replacement (TAVR) using bioprosthesis: 6. 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 Atrial fibrillation: 8. Pulmonary HTN: Plan: We have held aspirin yesterday but he continues to have significant hematuria on Plavix alone. Agree with transfer for urologic evaluation. He appears euvolemic. Continue amiodarone 400 mg daily for VT, mexiletine 150 mg twice a day, metoprolol succinate 25 mg twice daily. Once the hematuria is resolved he should resume aspirin if okay with urology, due to recent stenting of the obtuse marginal 1 and 2. 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
--- NOTE | 2025-03-26 10:28 | PM.TDS ---
Transfer Summary Providers Date of Admission: 03/17/25 05:10 Date of Discharge/Transfer: 03/26/25 Attending Provider at Admission: Faby Crouch MD Attending Provider at Transfer: Marti Courtney MD Primary Care Provider: Lizbeth Berrios MD Transfer Plans: Anticipated date of transfer: 03/26/25. Receiving Facility: [facility] . Receiving Provider: Dr. Hamm Hospitalist . Diagnoses at Discharge Discharge Diagnosis 1. Ventricular tachycardia, incessant: 2. AICD discharge: 3. Chronic systolic heart failure: 4. Status post transcatheter aortic valve replacement (TAVR) using bioprosthesis: 5. Cardiac resynchronization therapy defibrillator ([employer] LEADER-D) in place: 6. Persistent atrial fibrillation: 7. Anemia: 8. Gross hematuria: 9. Urinary tract infection associated with indwelling urethral catheter, subsequent encounter: 10. Acute on chronic combined systolic and diastolic congestive heart failure, NYHA class 3: 11. Acute renal failure: 12. CAD (coronary artery disease): Reason for Visit Reason for Visit Pacemaker is shocking pt Hospital Course Hospital Course 89 year old male with past medical history of atrial fibrillation, cardiomyopathy, s/p FI[employer] LEADER-D , A fib, systolic CHF (LVEF 37%), status post TAVR, CAD status post CABG He presented to the emergency room on March 17, 2025 after having been shocked by his [employer]ELD [employer] LEADER-D multiple times. He was evaluated by cardiology. He was started on IV Amio with continuation of metoprolol. On 03/19 he had multiple episodes of ventricular tachycardia requiring defibrillation. He was noted to be in incessant VT. This eventually settled with addition of magnesium, lidocaine and Cardizem. Urgent left heart cath was performed which showed multivessel disease. He underwent PCI to mid obtuse marginal with a drug-eluting stent and PCI to mid circumflex with drug-eluting stent. He has been started on aspirin and Plavix afterwards and was onf ull dose lovenox given A fib. Recurrent VT is now resolved. He is currently maintained on Amiodarone, metoprolol and Mexiletene. Case was discussed with EP at [facility] by cardiology, they opined that patient may not need VT ablation given recent revascularization. Pacemaker settings were adjusted. He is currently in paced rhytm with no recurrent firings. He is stable in this this regard. His hospital course has been complicated by EMILY with creatinine peaking at 2.2, likely related to URSULA and diuresis with IV Lasix. IV Lasix is currently on hold. Creatinine is improving at 2.0. Patient developed spontaneous hematuria initially on March 23, 2025 which resolved with discontinuing the full dose Lovenox. Ultrasound of the kidneys was performed on this day which showed bilateral cysts but no obstructing stones or hydro nephrosis. He developed recurrent hematuria on March 25, 2025 which required initiation of CBI which is currently still going on. Aspirin was briefly held yesterday, however given that he has had recent stents placed, discontinuation of DAPT is not recommended. Patient is being transferred today for urology services for cystoscopy, assess source of bleeding and control of bleeding while managing antiplatelets simultaneously. We do not have urology services available at our hospital therefore patient needs to be transferred to a different hospital. Hb stable at 13.0. He is hemodynamically stable at discharge. Patient has been accepted at [facility]. 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 echo complete* [id number] Stat Ultrasound 03/17/25 05:41 Completed US renal BI* [id number] Routine Ultrasound 03/23/25 05:53 Completed US soft tissue and or extremity [US soft tissue/ Ultrasound 03/25/25 01:15 Completed extremity [id number]] Stat Laboratory Last Values WBC 8.54 10^3/uL (3.29-11.43) 03/26/25 02:53 RBC 4.41 10^6/uL (3.85-5.65) 03/26/25 02:53 Hgb 13.50 g/dL (11.27-16.99) 03/26/25 02:53 Hct 41.1 % (37-53) 03/26/25 02:53 MCV 93.2 fl (82-101) 03/26/25 02:53 MCH 30.6 pg (27-33) 03/26/25 02:53 MCHC 32.8 g/dL (30-55) 03/26/25 02:53 RDW 16.8 % (12.1-15.1) H 03/26/25 02:53 Plt Count 129 10^3/cmm (157-399) L 03/26/25 02:53 MPV 12.6 fL (7.4-10.4) H 03/26/25 02:53 Neut % (Auto) 65.8 % 03/26/25 02:53 Lymph % (Auto) 13.1 % 03/26/25 02:53 Kimball % (Auto) 12.6 % 03/26/25 02:53 Eos % (Auto) 6.7 % 03/26/25 02:53 Baso % (Auto) 0.7 % 03/26/25 02:53 Neut # (Auto) 5.62 10^3/uL (1.8-7.7) 03/26/25 02:53 Lymph # (Auto) 1.1 10^3/uL (0.8-4.8) 03/26/25 02:53 Kimball # (Auto) 1.1 10^3/uL (0.2-0.9) H 03/26/25 02:53 Eos # (Auto) 0.6 10^3/uL (0.0-0.8) 03/26/25 02:53 Baso # (Auto) 0.1 10^3/uL (0.0-0.1) 03/26/25 02:53 Nucleated RBC % (auto) 0 % 03/26/25 02:53 Total Counted 100 (0-100) 03/20/25 03:47 Atypical Lymphs % 8.0 % (0-5) H 03/20/25 03:47 Absolute Neutrophils 6.8 10^3/cmm (1.4-6.5) H 03/20/25 03:47 Segmented Neutrophils 70 % 03/20/25 03:47 Band Neutrophils 3.0 % 03/20/25 03:47 Absolute Lymphocytes 1.9 10^3/cmm (1.2-3.4) 03/20/25 03:47 Lymphocytes (Manual) 12 % 03/20/25 03:47 Monocytes (Manual) 5.0 % 03/20/25 03:47 Absolute Monocytes 0.5 10^3/cmm (0.1-0.6) 03/20/25 03:47 Eosinophils (Manual) 1 % 03/20/25 03:47 Absolute Eosinophils 0.1 10^3/cmm (0.0-0.7) 03/20/25 03:47 Basophils (Manual) 0.0 % 03/20/25 03:47 Absolute Basophils 0.0 10^3/cmm (0.0-0.2) 03/20/25 03:47 Metamyelocytes 1.0 % 03/20/25 03:47 Nucleated RBCs # 0.0 /100WBC 03/26/25 02:53 Smudge Cells 1+ H 03/20/25 03:47 Platelet Estimate Normal (Normal) 03/20/25 03:47 Giant Platelets Trace 03/20/25 03:47 Poikilocytosis 3+ H 03/20/25 03:47 Anisocytosis 2+ H 03/20/25 03:47 Microcytosis 1+ H 03/20/25 03:47 Macrocytosis 1+ H 03/20/25 03:47 Crenated Cell 4+ H 03/20/25 03:47 Acanthocytes (Spur) 1+ H 03/20/25 03:47 APTT 48.5 SECONDS (23.9-36.7) H D 03/19/25 10:53 Sodium 139 mmol/L (136-145) 03/26/25 02:53 Potassium 4.0 mmol/L (3.5-5.1) 03/26/25 02:53 Chloride 108 mmol/L (98-107) H 03/26/25 02:53 Carbon Dioxide 17 mmol/L (22-29) L 03/26/25 02:53 Anion Gap 18.0 (5-19) 03/26/25 02:53 BUN 39 mg/dL (8-23) H 03/26/25 02:53 Creatinine 2.0 mg/dL (0.7-1.2) H 03/26/25 02:53 GFR Calculation Not Reportable 03/26/25 02:53 Glucose 116 mg/dL (65-115) H 03/26/25 02:53 Calculated Osmolality 298 mOsm/kg (285-295) H 03/26/25 02:53 Calcium 8.6 mg/dL (8.5-10.5) 03/26/25 02:53 Phosphorus 3.0 mg/dL (2.5-4.5) 03/19/25 00:23 Magnesium 2.0 mg/dL (1.7-2.3) 03/21/25 04:28 Total Bilirubin 0.7 mg/dL (0.15-1.2) 03/26/25 02:53 Direct Bilirubin 0.43 mg/dL (0.00-0.30) H 03/21/25 04:28 AST 17 U/L (0-40) 03/26/25 02:53 ALT 15 U/L (0-41) 03/26/25 02:53 Alkaline Phosphatase 159 U/L (40-130) H 03/26/25 02:53 Troponin T 5th Gen ng/L 39 ng/L (0-15) H 03/19/25 00:23 Troponin T Baseline 34 ng/L (0-15) H 03/17/25 04:16 Troponin T 120 Minute 32.23 ng/L (0-15) H 03/17/25 05:54 Delta Troponin T -1.77 ABS# (0-10) L 03/17/25 05:54 Troponin T Hi Sens 6Hr 31.78 ng/L (0-15) H 03/17/25 10:23 Troponin T Hi Sens 6Hr Delta -2.22 ng/L (0-12) L 03/17/25 10:23 Total Protein 6.9 g/dL (6.6-8.7) 03/26/25 02:53 Albumin 3.9 g/dL (3.5-5.2) 03/26/25 02:53 Globulin 3.0 g/dL (1.3-4.6) 03/26/25 02:53 Urine Color Red (Yellow) A 03/23/25 05:55 Urine Appearance Turbid (CLEAR) A 03/23/25 05:55 Urine pH 5.0 (5-7) 03/23/25 05:55 Ur Specific [place] 1.020 (1.005-1.030) 03/23/25 05:55 Urine Protein 2+ (Negative) A 03/23/25 05:55 Urine Glucose (UA) Negative (Normal) 03/23/25 05:55 Urine Ketones Negative (Negative) 03/23/25 05:55 Urine Blood 2+ (Negative) A 03/23/25 05:55 Urine Nitrate Positive (Negative) A 03/23/25 05:55 Urine Bilirubin 1+ (Negative) H 03/23/25 05:55 Urine Urobilinogen 0.2 mg/dL (Negative) 03/23/25 05:55 Ur Leukocyte Esterase 3+ (Negative) A 03/23/25 05:55 Urine RBC Too numerous to cnt /hpf (0-2) H 03/23/25 05:55 Urine WBC 15-25 /hpf (0-5) H 03/23/25 05:55 Ur Squamous Epith Cells 0-4 /hpf (0-5) H 03/23/25 05:55 Amorphous Sediment Not Reportable 03/23/25 05:55 Urine Bacteria 2+ /hpf (NONE) H 03/23/25 05:55 Radiology Impressions Chest X-Ray 03/22/25 14:18 IMPRESSION: Stable abnormal chest. No acute abnormality. Renal Ultrasound 03/23/25 05:53 IMPRESSION: 1. Bilateral renal cysts. 2. Multiple new renal cysts in the RIGHT kidney with the largest measuring 3.0 x 3.3 x 3.1 cm. 3. Very poorly visualized LEFT kidney. There is mild LEFT renal atrophy and cortical thinning. 4. Large simple cyst from the lower pole LEFT kidney has been previously described and unchanged. Soft Tissue Ultrasound 03/25/25 01:15 IMPRESSION: Grayscale and color Doppler images at the area of concern demonstrate diffuse soft tissue edema without organized hematoma or fluid collection. Recent Clincial Data Last Vital Signs Temp 97.8 F 03/26/25 07:43 Pulse 70 03/26/25 07:43 Resp 12 03/26/25 07:43 BP 121/85 03/26/25 07:43 Pulse Ox 96 03/26/25 07:43 O2 Del Method Room Air 03/26/25 07:43 Vital Signs Temp Pulse Resp BP Pulse Ox O2 Del Method 03/26/25 07:43 97.8 F 70 12 121/85 96 Room Air 03/26/25 06:00 70 03/26/25 04:00 98.9 F 70 11 L 115/73 96 Room Air 03/26/25 00:00 70 17 130/89 95 Room Air Intake & Output/Weight 03/24/25 03/25/25 03/26/25 03/27/25 06:59 06:59 06:59 06:59 Intake Total 300 / 300 720 / 720 920 / 920 120 / 120 Output Total 700 / 700 1050 / 1050 2225 / 2225 Balance -400 / -400 -330 / -330 -1305 / -1305 120 / 120 Weight 88.9 kg 87.9 kg 92.5 kg Vitals Last Vital Signs Temp 97.8 F 03/26/25 07:43 Pulse 70 03/26/25 07:43 Resp 12 03/26/25 07:43 BP 121/85 03/26/25 07:43 Pulse Ox 96 03/26/25 07:43 O2 Del Method Room Air 03/26/25 07:43 TS Medications Medications Acetaminophen (Acetaminophen 325 Mg Tablet) 650 mg PO Q6H PRN PRN Reason: MILD PAIN Al Hydrox/Mg Hydrox/Simethicone (Gpgy-Eyy-Gstmhsdus-Rochelle 30 Ml Udc) 30 ml PO Q15M PRN PRN Reason: INDIGESTION Alprazolam (Alprazolam 0.5 Mg Tablet) 0.25 mg PO TID PRN PRN Reason: ANXIETY Last Admin: 03/20/25 15:22 Dose: 0.25 mg Amiodarone HCl (Amiodarone 200 Mg Tablet) 400 mg PO DAILY ON LICENSE OF [facility] Last Admin: 03/26/25 06:11 Dose: 400 mg Atropine Sulfate (Atropine 1 Mg/Ml Sdv 1 Ml) 0.5 mg IVP PRN PRN PRN Reason: Symptomatic bradycardia Clopidogrel Bisulfate (Clopidogrel 75 Mg Tablet) 75 mg PO DAILY ON LICENSE OF [facility] Last Admin: 03/26/25 06:11 Dose: 75 mg Dorzolamide/Timolol (Dorzolamide/Timolol Op Soln 10 Ml Btl) 1 drop EYE-LEFT BID ON LICENSE OF [facility] Last Admin: 03/26/25 06:11 Dose: 1 drop Magnesium Hydroxide (Magnesium Hydroxide 30 Ml Udc) 30 ml PO DAILY PRN PRN Reason: CONSTIPATION Metoprolol Succinate (Metoprolol Succinate Er (24 Hr) 25 Mg Tablet) 25 mg PO BID ON LICENSE OF [facility] Last Admin: 03/26/25 06:12 Dose: 25 mg Naloxone HCl (Naloxone 0.4 Mg/Ml Sdv) 0.1 mg IVP Q2M PRN PRN Reason: RESPIRATORY RATE < 8/MIN Nitroglycerin (Nitroglycerin 0.4 Mg Sublingual Tablet) 0.4 mg SUBLINGUAL Q5M PRN PRN Reason: CHEST PAIN Non-Formulary Medication ( Mexiletine 150mg Capsule) 150 each PO BID ON LICENSE OF [facility] Last Admin: 03/26/25 06:12 Dose: 150 each Ondansetron HCl (Ondansetron 2 Mg/Ml Sdv 2 Ml) 4 mg IVP Q8H PRN PRN Reason: vomiting, or N/V if npo Pantoprazole Sodium (Pantoprazole Dr 40 Mg Tablet) 40 mg PO DAILY ON LICENSE OF [facility] Last Admin: 03/26/25 06:12 Dose: 40 mg Discontinued Medications Amiodarone HCl (Amiodarone 200 Mg Tablet) 400 mg PO BID ON LICENSE OF [facility] Amiodarone HCl (Amiodarone 200 Mg Tablet) 400 mg PO BID ON LICENSE OF [facility] Last Admin: 03/18/25 17:13 Dose: 400 mg Amiodarone HCl (Amiodarone 200 Mg Tablet) 400 mg PO ONCE ONE Stop: 03/18/25 09:31 Last Admin: 03/18/25 09:34 Dose: 400 mg Amiodarone HCl (Amiodarone 200 Mg Tablet) 400 mg PO BID ON LICENSE OF [facility] Last Admin: 03/21/25 08:04 Dose: 400 mg Amiodarone HCl (Amiodarone 200 Mg Tablet) 400 mg PO TID ON LICENSE OF [facility] Last Admin: 03/23/25 08:32 Dose: 400 mg Amiodarone HCl (Amiodarone 200 Mg Tablet) 400 mg PO DAILY ON LICENSE OF [facility] Aspirin (Aspirin 325 Mg Tablet) 325 mg PO ONCE ONE Stop: 03/19/25 05:01 Last Admin: 03/19/25 05:00 Dose: 325 mg Aspirin (Aspirin 81 Mg Ec Tablet) 81 mg PO DAILY ON LICENSE OF [facility] Last Admin: 03/23/25 08:32 Dose: 81 mg Aspirin (Aspirin 81 Mg Ec Tablet) 81 mg PO DAILY ON LICENSE OF [facility] Last Admin: 03/25/25 05:18 Dose: 81 mg Clopidogrel Bisulfate (Clopidogrel 75 Mg Tablet) 75 mg PO DAILY ON LICENSE OF [facility] Last Admin: 03/23/25 08:32 Dose: 75 mg Clopidogrel Bisulfate (Clopidogrel 300 Mg Tablet) 600 mg PO ONCE ONE Stop: 03/19/25 04:31 Last Admin: 03/19/25 04:45 Dose: 600 mg Diphenhydramine HCl (Diphenhydramine 50 Mg Capsule) 50 mg PO ONCE ONE Stop: 03/19/25 05:01 Last Admin: 03/19/25 04:54 Dose: Not Given Dorzolamide/Timolol (Dorzolamide/Timolol Op Soln 10 Ml Btl) 1 drop EYE-LEFT BID ON LICENSE OF [facility] Last Admin: 03/23/25 17:12 Dose: 1 drop Enoxaparin Sodium (Enoxaparin 100 Mg/Ml Syringe) 86 mg SUBCUT Q24H ON LICENSE OF [facility] Enoxaparin Sodium (Enoxaparin 80 Mg/0.8 Ml Syringe) 80 mg SUBCUT Q24H ON LICENSE OF [facility] Last Admin: 03/22/25 20:05 Dose: 80 mg Fentanyl (Fentanyl 50 Mcg/Ml Inj 2ml) Confirm Administered Dose 100 mcg .ROUTE .STK-MED ONE Stop: 03/19/25 02:16 Fentanyl (Fentanyl 50 Mcg/Ml Inj 2ml) 25 mcg IVP ONCE ONE Stop: 03/19/25 13:39 Last Admin: 03/19/25 13:42 Dose: 25 mcg Furosemide (Furosemide 10 Mg/Ml Sdv 4ml) 40 mg IVP BID ON LICENSE OF [facility] Last Admin: 03/21/25 08:04 Dose: 40 mg Heparin Sodium (Porcine) (Heparin 5,000 Unit/Ml Inj 1 Ml) 5,000 unit SUBCUT Q12H ON LICENSE OF [facility] Last Admin: 03/20/25 17:54 Dose: 5,000 unit Heparin Sodium (Porcine) (Heparin 5,000 Unit/Ml Inj 1 Ml) Confirm Administered Dose 5,000 unit .ROUTE .STK-MED ONE Stop: 03/19/25 01:58 Heparin Sodium (Porcine) (Heparin 5,000 Unit/Ml Inj 1 Ml) Confirm Administered Dose 5,000 unit .ROUTE .STK-MED ONE Stop: 03/19/25 03:06 Heparin Sodium (Porcine) (Heparin 5,000 Unit/Ml Inj 1 Ml) Confirm Administered Dose 5,000 unit .ROUTE .STK-MED ONE Stop: 03/19/25 03:57 AMIODARONE HCL/D5W (Amiodarone 900 Mg/500 Ml-D5w) 900 mg in 500 mls @ 0 mls/hr IV .Q0M DEONNA; Protocol Last Titration: 03/18/25 10:52 Dose: 0 mg/min, 0 mls/hr Sodium Chloride (Sodium Chloride 0.9%) 1,000 mls @ 75 mls/hr IV .[id number] DEONNA Last Admin: 03/18/25 22:51 Dose: 75 mls/hr Sodium Chloride (Sodium Chloride 0.9%) 1,000 mls @ 50 mls/hr IV .Q20H ONE Stop: 03/20/25 00:59 Last Admin: 03/19/25 04:31 Dose: Not Given Amiodarone HCl/Dextrose (Nexterone) 150 mg in 100 mls @ 400 mls/hr IV ONCE ONE Stop: 03/18/25 22:55 Last Infusion: 03/18/25 23:15 Dose: Infused Amiodarone HCl/Dextrose (Nexterone) Confirm Administered Dose 150 mg in 100 mls @ as directed .ROUTE .STK-MED ONE Stop: 03/18/25 22:48 Last Infusion: 03/19/25 03:13 Dose: Infused AMIODARONE HCL/D5W (Amiodarone 900 Mg/500 Ml-D5w) Confirm Administered Dose 900 mg in 500 mls @ as directed .ROUTE .STK-MED ONE Stop: 03/18/25 23:07 AMIODARONE HCL/D5W (Amiodarone 900 Mg/500 Ml-D5w) 900 mg in 500 mls @ 0 mls/hr IV .Q0M DEONNA; Protocol Last Titration: 03/21/25 10:00 Dose: 0 mg/min, 0 mls/hr Magnesium Sulfate (Magnesium Sulfate Premix) 4 gm in 100 mls @ 50 mls/hr IV ONCE ONE Stop: 03/19/25 02:12 Last Admin: 03/19/25 02:45 Dose: Not Given Magnesium Sulfate (Magnesium Sulfate Premix) Confirm Administered Dose 4 gm in 100 mls @ as directed .ROUTE .STK-MED ONE Stop: 03/19/25 00:15 Last Infusion: 03/19/25 02:42 Dose: Infused Lidocaine HCl/Dextrose (Lidocaine Drip) 2,000 mg in 500 mls @ 15 mls/hr IV .Q24H DEONNA Last Infusion: 03/20/25 17:14 Dose: 0 mg/min, 0 mls/hr Lidocaine HCl/Dextrose (Lidocaine Drip) Confirm Administered Dose 2,000 mg in 500 mls @ as directed .ROUTE .[facility] ONE Stop: 03/19/25 00:25 DILTIAZEM HCL/D5W (Cardizem) Confirm Administered Dose 125 mg in 125 mls @ as directed .ROUTE .[facility] ONE Stop: 03/19/25 00:42 DILTIAZEM HCL/D5W (Cardizem) 125 mg in 125 mls @ 0 mls/hr IV .Q0M DEONNA; Protocol Last Titration: 03/19/25 04:28 Dose: 0 mg/hr, 0 mls/hr Lidocaine HCl (Xylocaine) Confirm Administered Dose 20 mls @ as directed .ROUTE .[facility] ONE Stop: 03/19/25 02:16 Sodium Chloride (Sodium Chloride 0.9% (100 Ml)) Confirm Administered Dose 100 mls @ as directed .ROUTE .[facility] ONE Stop: 03/19/25 03:43 Sodium Chloride (Sodium Chloride 0.9%) 1,000 mls @ 100 mls/hr IV .Q10H DEONNA Last Infusion: 03/19/25 19:12 Dose: 0 mls/hr DILTIAZEM HCL/D5W (Cardizem) 125 mg in 125 mls @ 0 mls/hr IV .Q0M DEONNA; Protocol Last Titration: 03/20/25 19:44 Dose: Infused DILTIAZEM HCL/D5W (Cardizem) Confirm Administered Dose 125 mg in 125 mls @ as directed .ROUTE .[facility] ONE Stop: 03/20/25 01:15 Last Admin: 03/20/25 01:22 Dose: Not Given Esmolol HCl (Brevibloc Drip) 2,500 mg in 250 mls @ 0 mls/hr IV .Q0M DEONNA; Protocol Last Titration: 03/21/25 14:40 Dose: 0 mcg/kg/min, 0 mls/hr Sodium Chloride (Sodium Chloride 0.9%) 1,000 mls @ 100 mls/hr IV .Q10H ON LICENSE OF [facility] Last Infusion: 03/22/25 14:46 Dose: 0 mls/hr Lorazepam (Lorazepam 1 Mg/0.5 Ml Injection) Confirm Administered Dose 1 mg .ROUTE .[facility] ONE Stop: 03/18/25 04:29 Last Admin: 03/18/25 05:11 Dose: Not Given Metoprolol Succinate (Metoprolol Succinate Er (24 Hr) 25 Mg Tablet) 25 mg PO DAILY ON LICENSE OF [facility] Last Admin: 03/21/25 08:04 Dose: 25 mg Metoprolol Succinate (Metoprolol Succinate Er (24 Hr) 25 Mg Tablet) 50 mg PO DAILY ON LICENSE OF [facility] Last Admin: 03/23/25 08:32 Dose: 50 mg Metoprolol Succinate (Metoprolol Succinate Er (24 Hr) 25 Mg Tablet) 25 mg PO ONCE ON LICENSE OF [facility] Metoprolol Succinate (Metoprolol Succinate Er (24 Hr) 25 Mg Tablet) 25 mg PO BID ON LICENSE OF [facility] Last Admin: 03/23/25 17:12 Dose: 25 mg Midazolam HCl (Midazolam 1 Mg/Ml Inj 2 Ml) Confirm Administered Dose 2 mg .ROUTE .[facility] ONE Stop: 03/19/25 02:16 Morphine Sulfate (Morphine 4 Mg/Ml Sdv 1 Ml) 4 mg IVP Q4H PRN PRN Reason: SEVERE PAIN Non-Formulary Medication ( Mexiletine 150mg Capsule) 150 each PO BID ON LICENSE OF [facility] Last Admin: 03/23/25 17:12 Dose: 150 each Pantoprazole Sodium (Pantoprazole Dr 40 Mg Tablet) 40 mg PO DAILY ON LICENSE OF [facility] Last Admin: 03/23/25 08:32 Dose: 40 mg Phenylephrine HCl (Phenylephrine 10 Mg/Ml Sdv 1 Ml) Confirm Administered Dose 10 mg .ROUTE .[facility] ONE Stop: 03/19/25 03:43 Allergies fenofibrate Allergy (Unknown, Verified 02/09/25 15:27) Unknown levofloxacin Allergy (Unknown, Verified 02/09/25 15:27) Unknown niacin Allergy (Unknown, Verified 02/09/25 15:27) Unknown Home Medications loratadine 10 mg tablet (Claritin) 10 mg PO BEDTIME@1900 09/12/20 [History Confirmed 03/17/25] ascorbic acid (vitamin C) 1,000 mg tablet 1 g PO BID@0700,1900 01/17/21 [History Confirmed 03/17/25] cholecalciferol (vitamin D3) 25 mcg (1,000 unit) capsule 25 mcg PO DAILY 12/21/21 [History Confirmed 03/17/25] lutein 25 mg-zeaxanthin 5 mg capsule 1 cap PO DAILY 12/26/21 [History Confirmed 03/17/25] tamsulosin 0.4 mg capsule 0.4 mg PO BEDTIME@1900 #90 caps 02/20/22 [Rx Confirmed 03/17/25] atorvastatin 40 mg tablet 40 mg PO DAILY@1900 #90 tabs 03/01/22 [Rx Confirmed 03/17/25] levothyroxine 150 mcg tablet (Euthyrox) 150 mcg PO DAILY #90 tabs 03/05/22 [Rx Confirmed 03/17/25] methenamine hippurate 1 gram tablet See Rx Instructions .Route .COMPLEX #60 tabs 09/05/22 [Rx Confirmed 03/17/25] nitroglycerin 0.4 mg sublingual tablet (Nitrostat) 0.4 mg sublingual Q5M PRN Chest Pain #30 tabs 09/13/22 [Rx Confirmed 03/17/25] triamcinolone acetonide 55 mcg nasal spray aerosol (Nasacort) 2 spray intranasal DAILY PRN allergies 04/08/23 [History Confirmed 03/17/25] dorzolamide 22.3 mg-timolol 6.8 mg/mL eye drops 1 drp ophthalmic (eye) BID 05/06/24 [History Confirmed 03/17/25] spironolactone 25 mg tablet 12.5 mg (1/2 x 25 mg) PO DAILY #90 tabs 05/29/24 [Rx Confirmed 03/17/25] lycopene 10 mg capsule 15 mg PO DAILY@0700 10/28/24 [History Confirmed 03/17/25] metoprolol succinate 25 mg tablet,extended release 24 hr 12.5 mg (1/2 x 25 mg) PO BID #45 tabs 03/16/25 [Rx Confirmed 03/17/25] sacubitril 49 mg-valsartan 51 mg tablet (Entresto) 0.5 tab PO BID #120 tabs 03/16/25 [Rx Confirmed 03/17/25] furosemide 20 mg tablet 20 mg PO DAILY 03/17/25 [History Confirmed 03/17/25] omega-3 fatty acids 1,000 mg capsule 1,000 mg PO DAILY 03/17/25 [History Confirmed 03/17/25] Discharge Plan Discharge Patient Disposition: Xfer Other Condition: Stable Prescriptions: New amiodarone in dextrose 5 % 900 mg/500 mL (1.8 mg/mL) Solution 900 mg continuous IV infusion .Q0M Qty: 0 0RF alprazolam 0.5 mg Tablet 0.25 mg PO TID PRN (Reason: Anxiety) Qty: 0 0RF clopidogrel 75 mg Tablet 75 mg PO DAILY Qty: 0 0RF lidocaine in 5 % dextrose (PF) 4 mg/mL (0.4 %) Parenteral Solution 2,000 mg continuous IV infusion .Q24H Qty: 0 0RF acetaminophen 325 mg Tablet 650 mg PO Q6H PRN (Reason: Mild Pain) Qty: 0 0RF aspirin 81 mg Tablet,Delayed Release (Dr/Ec) 81 mg PO DAILY Qty: 0 0RF Continued ascorbic acid (vitamin C) 1,000 mg tablet 1 g PO BID@0700,1900 lycopene 10 mg capsule 15 mg PO DAILY@0700 loratadine [Claritin] 10 mg tablet 10 mg PO BEDTIME@1900 lutein-zeaxanthin 25-5 mg capsule 1 cap PO DAILY dorzolamide-timolol 22.3-6.8 mg/mL drops 1 drp ophthalmic (eye) BID cholecalciferol (vitamin D3) 25 mcg (1,000 unit) capsule 25 mcg PO DAILY triamcinolone acetonide [Nasacort] 55 mcg aerosol,spray 2 spray intranasal DAILY PRN (Reason: allergies) Rx Instructions: administer into each nostril nitroglycerin [Nitrostat] 0.4 mg tablet, sublingual 0.4 mg SUBLINGUAL Q5M PRN (Reason: Chest Pain) Qty: 30 2RF spironolactone 25 mg tablet 12.5 mg PO DAILY Qty: 90 3RF tamsulosin 0.4 mg capsule 0.4 mg PO BEDTIME@1900 Qty: 90 3RF atorvastatin 40 mg tablet 40 mg PO DAILY@1900 Qty: 90 4RF levothyroxine [Euthyrox] 150 mcg tablet 150 mcg PO DAILY Qty: 90 0RF methenamine hippurate 1 gram tablet See Rx Instructions .ROUTE .COMPLEX Qty: 60 6RF Dose Instruction: TAKE 1 TABLET BY MOUTH TWICE DAILY, TAKE EACH DOSE WITH 1000 MG OF VITAMIN C Rx Instructions: TAKE 1 TABLET BY MOUTH TWICE DAILY, TAKE EACH DOSE WITH 1000 MG OF VITAMIN C metoprolol succinate 25 mg tablet extended release 24 hr 12.5 mg PO BID Qty: 45 3RF sacubitril-valsartan [Entresto] 49-51 mg tablet 0.5 tab PO BID Qty: 120 0RF omega-3 fatty acids 1,000 mg Capsule 1,000 mg PO DAILY furosemide 20 mg tablet 20 mg PO DAILY Referrals: [facility] [Outside] Lizbeth Berrios MD [Primary Care Provider, Internal Medicine] - 03/25/25 11:30 am Referral Note: Patient Instructions: Coronary Angioplasty (DC) Transfer Attestations Time Spent in Transfer Care: greater than 30 min Status at Transfer: Cognitive status at transfer: moderately impaired cognition; Behavioral status at transfer: cooperative; Quality Metrics Clinical Quality Measures [ No reported AMI, CVA or VTE this stay] Coding Level of Care Code Acute Code for Chg Fwd Total time (in minutes) for Discharge: 60 Diagnoses Ventricular tachycardia, incessant I47.29 AICD discharge Z45.02 Chronic systolic heart failure I50.22 Status post transcatheter aortic valve replacement (TAVR) using bioprosthesis Z95.3 Cardiac resynchronization therapy defibrillator ([employer]) in place Z95.810 Persistent atrial fibrillation I48.19 Atrial fibrillation type: persistent (not longstanding) Anemia D64.9 Gross hematuria R31.0 Urinary tract infection associated with indwelling urethral catheter, subsequent encounter T83.511D; N39.0 Encounter type: subsequent encounter Indwelling urinary catheter type: indwelling urethral catheter Urinary tract infection type: catheter-associated UTI 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
--- NOTE | 2025-03-26 11:14 | PC.NURSE ---
the patient was transferred to [place] at 1100. Report called to Bernard at [facility]. Patient's belongings with him at discharge. Patient's familiy says she has cane at home.
== END 2025-03-26 11:14 | disposition short-term general hospital (02) | DRG 321 ==
LOC: ER 05:22 → ICU 06:08 → CSU 16:57 → ICU 03-18 22:50 → CSU 03-23 17:20
PROVIDERS: Internal Medicine; Internal Medicine Cardiovascular Disease; Student in an Organized Health Care Education/Training Program; Admitting Provider Internal Medicine; Emergency Provider Emergency Medicine; PCP Internal Medicine; Visit Provider Student in an Organized Health Care Education/Training Program
PROC: 027035Z Dilation of Coronary Artery, One Artery with Two Drug-eluting Intraluminal Devices, Percutaneous Approach (ICD-10-PCS; principal; 2025-03-19 02:40)
PROC: 027035Z Dilation of Coronary Artery, One Artery with Two Drug-eluting Intraluminal Devices, Percutaneous Approach (ICD-10-PCS; 2025-03-19 02:40)
DX: I47.20 Ventricular tachycardia, unspecified (principal); N17.0 Acute kidney failure with tubular necrosis; T83.511A Infection and inflammatory reaction due to indwelling urethral catheter, initial encounter; I50.22 Chronic systolic (congestive) heart failure; I25.810 Atherosclerosis of coronary artery bypass graft(s) without angina pectoris; I48.19 Other persistent atrial fibrillation; D63.1 Anemia in chronic kidney disease; R31.0 Gross hematuria; Y73.8 Miscellaneous gastroenterology and urology devices associated with adverse incidents, not elsewhere classified; I25.10 Atherosclerotic heart disease of native coronary artery without angina pectoris; I95.9 Hypotension, unspecified; N47.1 Phimosis; I27.20 Pulmonary hypertension, unspecified; I08.0 Rheumatic disorders of both mitral and aortic valves; I65.23 Occlusion and stenosis of bilateral carotid arteries; N18.9 Chronic kidney disease, unspecified; I25.5 Ischemic cardiomyopathy; I49.5 Sick sinus syndrome; E78.5 Hyperlipidemia, unspecified; Z95.1 Presence of aortocoronary bypass graft; Z79.82 Long term (current) use of aspirin; Z79.02 Long term (current) use of antithrombotics/antiplatelets; Z95.810 Presence of automatic (implantable) cardiac defibrillator; Z95.3 Presence of xenogenic heart valve; N40.1 Benign prostatic hyperplasia with lower urinary tract symptoms; R33.8 Other retention of urine
CPT/HCPCS: 36415; 71045; 76770; 76882; 80048; 80053; 80076; 81001; 83735; 84100; 84484; 85007; 85025; 85347; 85730; 87077; 87086; 87186; 92507; 92522; 92526; 92610; 93005; 93296; 93306; 93455; 96365; 96372; 96374; 97116; 97162; 97167; 97530; 97535; 99152; 99153; 99285; A4222; C1725; C1769; C1874; C1887; C1894; C9600; J0282; J0283; J1644; J1650; J1938; J2003; J2250; J2371; J3010; J3475; J3490; J7030; J9999; Q9967

== ENCOUNTER 2025-04-08 14:26 | Emergency (ER) | payer MEDICARE, SELFPAY ==
--- OUTSIDE RECORDS SUMMARY | 2025-04-07 04:00 | XMS_ITS ---
Author Organization [facility] Address [address] [place] [address] Care Team Providers [employer] Name Role Phone Lizbeth Berrios Primary Care Provider LAILA Cole Unavailable [phone] BENITEZ BARFIELD Unavailable [phone] Allergies Allergen (clinical drug ingredient) Drug/Non Drug Allergy documented on EMR Reaction Allergy Type Onset Date Status Levaquin Unknown Drug Allergy Active Niaspan rash Drug Allergy Active fenofibrate Tricor Unknown Drug Allergy Activ e fenofibrate Fenofibrate allergy Drug Allergy Act cinthya REASON FOR VISIT Hematuria/UTI Medications Medication SIG (Take, Route, Frequency, Duration) Notes Start Date End Date Status Levothyroxine Sodium 150 MCG 1 tablet in the morning on an empty stomach Orally Once a day 05/29/2023 Active Vitamin C 1000 MG 1 tablet Orally twice daily Active Burwell 3 1000 MG 1/2 capsule Orally Once a day Active Claritin 10 MG 1 tablet Orally Once a day Active Nitroglycerin 0.4 MG Dissolve 1 tablet(s) under the tongue may repeat every 5 minutes. Maximum of 3 doses in 15 minutes Sublingual; Duration: 30 12/05/2011 Active Entresto 49-51 MG 1 tablet Orally Twice a day Active Amiodarone HCl 400 MG 1 tablet Orally Once a day Active Mexiletine HCl 2 tabs a day Ac tive Plavix 75 MG 1 tablet Orally Once a day Active Euthyrox 150 MCG TAKE 1 TABLET BY MOUTH ONCE DAILY FOR 90 DAYS (TAKE THIS MEDICATION SEPERATE FROM OTHER MEDICINES,VITAMI NS, AND FOOD); Duration: 90 Not-Taking Cefdinir 300 MG one capsule Orally twice daily for 7 days; Duration: 7 days Not-Taking Pepcid 20 MG one in the AM and one in the PM Orally twice a day; Duration: 30 day(s) Not-Taking Potassium Chloride ER 20 MEQ 1 tablet with food Orally Twice a day; Duration: 90 days Not-Taking Tamsulosin HCl 0.4 MG Take 1 capsule by mouth once daily at bedtime; Duration: 30 Active Nasacort AQ 55 mcg 2 spray(s) in each nostril daily NASAL; Duration: 30 *Reorder from [employer] for eRx and Interaction Alerts* 11/30/2013 Not-Taking Methenamine Hippurate 1 GM 1 tablet Orally Twice a day Active Vitamin D 25 MCG (1000 UT) 1 tablet Orally Once a day Active Atorvastatin Calcium 40 MG TAKE 1 TABLET BY MOUTH ONCE DAILY AT BEDTIME; Duration: 90 Active Furosemide 40 MG 2 tablet daily at 8am and 1 at 2pm Orally daily; Duration: 90 days dose increase Active Lycopene 10 MG 1 capsule with a meal Orally Once a day Active Spironolactone 25 MG TAKE 1 TABLET BY MOUTH ONCE DAILY IN THE MORNING; Duration: 30 Active Social History Tobacco Use: Social History Observation Description Date Details (start date - stop date) Never Smoker NA - NA Tobacco Control (Standard) Question Answer Notes Tobacco use: Nonsmoker Problems Problem Type SNOMED Code ICD Code Onset Dates Problem Status W/U Status Risk Notes Problem Long-term current use of anticoagulant (345326318) Anticoagulated (Z79.01) Active confirmed Problem History of placement of stent for coronary artery disease (situation) (414847411) History of heart artery stent (Z95.5) Active confirmed Vital Signs Blood pressure systolic 119 mm Hg 04/07/20 25 Blood pressure diastolic 69 mm Hg 025 Heart Rate 69 /min 04/07/2025 Height 69 in 04/07/2025 Weight 197.2 lbs 04/07/2025 BMI 29.12 kg/m2 04/07/2025 Weight-kg 89.45 kg 04/07/2025 Procedures Procedure Date Ordered Date Performed Result Body Sit e Catheter Insertion-Routine 04/07/2025 04/07/2025 N/A Encounters Encounter Location Date Provider Diagnosis [facility] [address] [place] [address] 04/07/2025 BENITEZ BARFIELD Gross hematuria R31. 0 ; History of recent hospitalization Z92.89 ; Chronic indwelling Lacy catheter Z97.8 ; Urinary retention R33.9 ; Anticoagulated Z79.01 and History of heart artery stent Z95.5 Assessments Encounter Date Diagnosis (ICD Code) Assessment Notes Treatment Notes Treatment Clinical Notes Section Notes 04/07/2025 Gross hematuria (ICD-10 - R31.0) 04/07/2025 History of recent hospitalization (ICD-10 - Z92.89) 04/07/2025 Chronic indwelling Lacy catheter (ICD-10 - Z97.8) 04/07/2025 Urinary retention (ICD-10 - R33.9) 04/07/2025 Anticoagulated (ICD-10 - Z79.01) 04/07/2025 History of heart artery stent (ICD-10 - Z95.5) 04/07/2025 Other Exchange Lacy today to 16 or 18 [address] as he still has a 3 way hematuria catheter in from [place]. Home Health will take over exchanges as they were doing prior to hospitalizati on. Keep f/u with PCP and Cardiology. RTC as scheduled, or PRN sooner. Plan Of Treatment Treatment Notes Assessment Notes Other Exchange Lacy today to 16 or 18 F [address] as he still has a 3 way hematuria catheter in from [place]. Home Health will take over exchanges as they were doing prior to hospitalization. Keep f/u with PCP and Cardiology. RTC as scheduled, or PRN sooner. Next Appt Details Follow Up: as scheduled, Renay son: Provider Name:LAILA Bolton, 02/14/2026 01:50:00 PM, [address] [place], [address], Progress Notes * Tank SAAVEDRA CDOB:1935 (89 yo M)Acc No.[id number]:04/07/2025 Patient: Essie Tank VERDIN Provider: FAROOQ Boyle :1935 A ge:89 Y S ex:Male Date:04/07/2025 Address:[address] [place], [place] [id number] Pcp:Lizbeth Berrios Subjective: * Chief Complaints: * 1 . Hematuria/UTI. * HPI: M igrated HPI: Manfred Sommers is an 89 -yo male patient of Dr. North with chronic indwelling Lacy. He is a prior patient of Dr. Lomas. He has a h/o BPH, s/p TURP in 2010, h/o CKD, CHF, UTIs, phimosis, and h/o gross hematuria in 2012. LAUREN in 2012, revealed a benign cyst.?He is s/p cardiac bypass, pacemaker in 2010 and pacemaker/defib in 2017, aortic valve replacement, appendectomy, and hernia repair. Cysto on 07/2023 revealed an o pen prostatic fossa with mild regrowth. Discussed options for chronic retention w ith CIC vs indwelling lacy vs SP tube. Family and patient elected to continue indwelling catheter. He was last seen in 01/2025 for annual follow up, doing well. He had cardiac stent at the end of 02/2025, put on Plavix and ASA, then developed persistent hematuria and was transferred to [place]. Lanny betancourt was inpatient from 03/26/25-04/02/25. Hematuria eventually resolved with CBI. Patient presents today for hospital follow up. states there are days where urine is dark, but no jaciel hematuria. He has stringy clots passing. Denies fever, chills, N/V or SP pain. * ROS: G eneral / Constitutional: Patient denies f ever, chills, night sweats, change in appetite. R espiratory: Patient denies c ough, shortness of breath. ? C ardiovascular: Patient denies c hest pain, dizziness, palpitations. ? G astrointestinal: Patient denies a bdominal pain, change in bowel habits, nausea, vomiting. G enitourinary: Patient denies A s documented in HPI . * Medical History: H ypertension, Hypercholesterolemia, CHF, Aortic stenosis, Atrial fibrillation, Pacemaker; Medtronic Viva Quad, Hypothyroidism, Osteoarthritis, Urinary retention and incomplete emptying, Anemia, Aortic stenosis, BPH with LUTS. * Surgical History: C oronary Artery Bypass Graft , Cataract removal; bilateral , Pacemaker implantation; Medtronic Viva Quad 01/06/2018, thyroid surgery , battery replaced in pacemaker 01/2025, 2 heart stents placed 03/19/25. * Hospitalization/Major Diagno stic Procedure: S urgeries , bacteria in blood 03/2020, GI bleed 10/2020, UTI, COVID, received blood transfusion 01/2021, hospital stay for pacemaker trouble . * Family History: M other: Hypertension. N on-Contributory. * Social History: T obacco Use: T obacco Control (Standard) T obacco use: N onsmoker. * Medications: T aking Plavix 75 MG Tablet 1 tablet Orally Once a day , Taking Amiodarone HCl 400 MG Tablet 1 tablet Orally Once a day , Taking Mexiletine HCl , Notes to Pharmacist: 2 tabs a day, Taking Entresto 49-51 MG Tablet 1 tablet Orally Twice a day , Taking Levothyroxine Sodium 150 MCG Tablet 1 tablet in the morning on an empty stomach Orally Once a day , Taking Nitroglycerin 0.4 MG Tablet Sublingual Dissolve 1 tablet(s) under the tongue may repeat every 5 minutes. Maximum of 3 doses in 15 minutes Sublingual , Taking Burwell 3 1000 MG Capsule 1/2 capsule Orally Once a day , Taking Claritin 10 MG Tablet 1 tablet Orally Once a day , Taking Vitamin C 1000 MG Tablet 1 tablet Orally twice daily , Taking Spironolactone 25 MG Tablet TAKE 1 TABLET BY MOUTH ONCE DAILY IN THE MORNING , Taking Furosemide 40 MG Tablet 2 tablet daily at 8am and 1 at 2pm Orally daily , Notes to Pharmacist: dose increase, Taking Lycopene 10 MG Capsule 1 capsule with a meal Orally Once a day , Taking Vitamin D 25 MCG (1000 UT) Tablet 1 tablet Orally Once a day , Taking Atorvastatin Calcium 40 MG Tablet TAKE 1 TABLET BY MOUTH ONCE DAILY AT BEDTIME , Taking Methenamine Hippurate 1 GM Tablet 1 tablet Orally Twice a day , Taking Tamsulosin HCl 0.4 MG Capsule Take 1 capsule by mouth once daily at bedtime , Not-Taking Nasacort AQ 55 mcg AEROSOL, SPRAY (GRAM) 2 spray(s) in each nostril daily NASAL , Notes to Pharmacist: *Reorder from [employer] for eRx and Interaction Alerts*, Not-Taking Pepcid 20 MG Tablet one in the AM and one in the PM Orally twice a day , Not-Taking Potassium Chloride ER 20 MEQ Tablet Extended Release 1 tablet with food Orally Twice a day , Not-Taking Cefdinir 300 MG Capsule one capsule Orally twice daily for 7 days , Not-Taking Euthyrox 150 MCG Tablet TAKE 1 TABLET BY MOUTH ONCE DAILY FOR 90 DAYS (TAKE THIS MEDICATION SEPERATE FROM OTHER MEDICINES,VITAMINS, AND FOOD) , Medication List reviewed and reconciled with the patient * Allergies: L evaquin: Allergy, Niaspan: rash - Allergy, Tricor: Allergy, Fenofibrate: allergy. Objective: * Vitals: B P: 119/69 mm Hg, HR: 69 /min, Wt: 197.2 lbs, Wt-k.45 kg, Ht: 69 in, BMI: 29.12 Index, Body Surface Area: 2.08. * Examination: G eneral Examination: General appearance: a lert, elderly, male, well-nourished and in no acute distress, using rolling walker. Skin: s kin is warm and dry, with no rashes, good skin turgor and normal hair distribution. Heart: r egular rate. Lungs: s ymmetrical, non labored respirations. Abdomen: s oft, non tender, non distended. Back: n o CVA tenderness. Assessment: * Assessment: 1. H istory of recent hospitalization - Z92.89 (Primary) 2 . G ross hematuria - R31.0 3 . C hronic indwelling Lacy catheter - Z97.8 4 .?Urinary retention - R33.9 5 . A nticoagulated - Z79.01 6 .?History of heart artery stent - Z95.5 Plan: * Treatment: 2.?Others? Notes: Exchange Lacy today to 16 or 18 [address] as he still has a 3 way hematuria catheter in from [place]. Home Health will take over exchanges as they were doing prior to hospitalization. Keep f/u with PCP and Cardiology. RTC as scheduled, or PRN sooner. ?? * Follow Up: a s scheduled * Billing Information: * Visit Code: 56574 Office Visit, Est Pt., Level 4. * Procedure Codes: * Electronic signature of BENITEZ BARFIELD APRN on 04/08/2025 at 03:43 PM CDT Sign off status: Pending * Provider: Baylee Barfield APRN-STUDENT [employer]CIAL SERVICES COUNSELOR Date: Generated for Amy wall/Hector/Melvaitting on: 03:43 PM CDT History and Physical Notes * Examination Category Sub-Category Detail Notes Category Not es General Examination General appearance: alert, e lderly, male, well-nourished and in no acute distress, using rolling walker Heart: regular rate Lungs: symmetrical, non lab ored respirations Abdomen: soft, non tender, no n distended Skin: skin is warm and dry , with no rashes, good skin turgor and normal hair distribution Back: no CVA tenderness
[2025-04-08 14:36] VITALS: BP 124/82; PULSE 76; RESP 18; TEMP 36.2; O2SAT 99
--- NOTE | 2025-04-08 15:19 | W.ED.MALEGU ---
HPI - Male Genitourinary General: Chief complaint: Urogenital-Male Stated complaint: Cath Not draining Time Seen by Provider: 04/08/25 14:52 History of Present Illness: 89-year-old male presents to the emergency room with complaint of his catheter not draining. Patient has significant amount of bruising as well. He was seen here recently and transferred to [facility] because of urology issues he was discharged with a Wang catheter he has been having blood in his catheter. He was seen by Dr. North yesterday replace catheter because it was clogged by blood. He states it is emptied this morning at around 7:00 and since then has had almost no output. He has about 30 to 50 mL of urine in the Wang bag at the bedside at the time that I seen him. He has a significant amount of ecchymosis on his abdomen and particularly in his left hand that has been there for some time he has been evaluated for it at [facility]. He is able to move the hand he has some discomfort and the pain and swelling but no sharp pain. Associated symptoms: Deny dysuria Related Data Home Medications ?Medication ?Instructions ?Recorded ?Confirmed loratadine 10 mg tablet (Claritin) 10 mg PO BEDTIME@1900 09/12/20 04/09/25 ascorbic acid (vitamin C) 1,000 mg 1 g PO BID@0700,1900 01/17/21 04/09/25 tablet cholecalciferol (vitamin D3) 25 25 mcg PO DAILY 12/21/21 04/09/25 mcg (1,000 unit) capsule lutein 25 mg-zeaxanthin 5 mg 1 cap PO DAILY 12/26/21 04/09/25 capsule triamcinolone acetonide 55 mcg 2 spray intranasal DAILY PRN 04/08/23 04/09/25 nasal spray aerosol (Nasacort) allergies dorzolamide 22.3 mg-timolol 6.8 1 drp ophthalmic (eye) BID 05/06/24 04/09/25 mg/mL eye drops lycopene 10 mg capsule 15 mg PO DAILY@0700 10/28/24 04/09/25 furosemide 20 mg tablet 20 mg PO DAILY 03/17/25 04/09/25 omega-3 fatty acids 1,000 mg 1,000 mg PO DAILY 03/17/25 04/09/25 capsule mexiletine 150 mg capsule 150 mg PO BID 04/08/25 04/09/25 Previous Rx's ?Medication ?Instructions ?Recorded tamsulosin 0.4 mg capsule 0.4 mg PO BEDTIME@1900 #90 caps 02/20/22 atorvastatin 40 mg tablet 40 mg PO DAILY@1900 #90 tabs 03/01/22 levothyroxine 150 mcg tablet 150 mcg PO DAILY #90 tabs 03/05/22 (Euthyrox) methenamine hippurate 1 gram tablet See Rx Instructions .Route 09/05/22 .COMPLEX #60 tabs nitroglycerin 0.4 mg sublingual 0.4 mg sublingual Q5M PRN Chest 09/13/22 tablet (Nitrostat) Pain #30 tabs spironolactone 25 mg tablet 12.5 mg (1/2 x 25 mg) PO DAILY #90 05/29/24 tabs metoprolol succinate 25 mg 12.5 mg (1/2 x 25 mg) PO BID #45 03/16/25 tablet,extended release 24 hr tabs sacubitril 49 mg-valsartan 51 mg 0.5 tab PO BID #120 tabs 03/16/25 tablet (Entresto) amiodarone 400 mg tablet 400 mg PO DAILY #90 tabs 04/06/25 clopidogrel 75 mg tablet (Plavix) 75 mg PO DAILY #90 tabs 04/06/25 Allergies Allergy/AdvReac Type Severity Reaction Status Date / Time fenofibrate Allergy Unknown Unknown Verified 02/09/25 15:27 levofloxacin Allergy Unknown Unknown Verified 02/09/25 15:27 niacin Allergy Unknown Unknown Verified 02/09/25 15:27 Review of Systems Const: Denies: fever(s) or chills Card: Denies: chest pain Resp: Denies: dyspnea GI: Denies: abdominal pain : Denies: dysuria, urinary frequency or urinary urgency Musc: Denies: neck pain or back pain Skin/Breast: Denies: rash PFSH ED PFSH: Medical History Cardiac resynchronization therapy defibrillator (CAR FILLER-D) in place CHF (congestive heart failure) Arrhythmia Urinary tract infection associated with indwelling urethral catheter, subsequent encounter History of myelodysplastic syndrome Chronic anticoagulation Clot retention of urine Hyponatremia Anemia Phimosis Urinary retention BPH (benign prostatic hyperplasia) Hypothyroidism Anticoagulation adequate with anticoagulant therapy Direct thrombin inhibitor Pradaxa Dyslipidemia Atrial fibrillation Patient has a history of recurrent GI bleed and spontaneous hematoma in the flank. So he was taken off the Pradaxa SSS (sick sinus syndrome) HTN (hypertension) ASHD (arteriosclerotic heart disease) Ischemic cardiomyopathy CKD (chronic kidney disease) Carotid stenosis, bilateral Aortic stenosis Mitral regurgitation Pulmonary HTN Surgical History H/O esophagogastroduodenoscopy (10/20/20) History of coronary artery stent placement Status post colonoscopy (10/20/20) diverticulosis, polyps S/P hernia repair S/P cataract extraction S/P CABG (coronary artery bypass graft) S/P ICD (internal cardiac defibrillator) procedure S/P TAVR (transcatheter aortic valve replacement) Family History Mother , at age 82 CAD (coronary artery disease) Father , at age 69 Stroke Social History Smoking and tobacco/nicotine status: never used tobacco/nicotine Alcohol intake: never Substance/Drug Use: never Adopted: No Caregiver/support person: No Lives independently: No Household members: spouse Marital status: Current occupational status: retired Physical Exam Const: GENERAL APPEARANCE: cooperative ORIENTATION/CONSCIOUSNESS: Yes awake, Yes oriented to person, Yes oriented to place and Yes oriented to time HENMT: COMMON NORMALS: normocephalic, atraumatic and hearing grossly normal bilaterally HEAD & SCALP: normocephalic and atraumatic Resp: COMMON NORMALS: normal respiratory effort, No retractions, No use of accessory muscles and clear to auscultation bilaterally AUSCULTATION: clear to auscultation bilaterally Cardio: COMMON NORMALS: regular rate, regular rhythm and No murmurs present (Cardio) RATE: regular rate RHYTHM: regular rhythm GI: COMMON NORMALS: Soft to palpation and No hepatosplenomegaly present AUSCULTATION: Yes normoactive bowel sounds PALPATION: Yes Soft to palpation, No Tenderness to palpation present (GI), No Guarding due to palpation present (GI) and Yes No hepatosplenomegaly present Neuro: SENSORIUM/ORIENTATION: Yes oriented to person, Yes oriented to place and Yes oriented to time Course Vital Signs: Vital signs: Vital Signs Temperature 97.2 F L 04/08/25 14:36 Pulse Rate 70 04/08/25 17:34 Respiratory Rate 16 04/08/25 17:34 Blood Pressure 119/67 04/08/25 17:34 Pulse Oximetry 92 04/08/25 17:34 Oxygen Delivery Me thod Room Air 04/08/25 16:00 MDM - Male Medical Decision Making Catheter irrigated out flowing well. We contacted on-call DrManfred For Dr. North they will see him in the next few days. Will have him hold his Plavix. Return if he is not getting good return from the catheter he should get 30 to 50 mL/h. Lab Data 04/08/25 15:48 04/08/25 15:48 Laboratory Results WBC 10.29 10^3/uL (3.29-11.43) 04/08/25 15:48 RBC 3.28 10^6/uL (3.85-5.65) L 04/08/25 15:48 Hgb 10.10 g/dL (11.27-16.99) L 04/08/25 15:48 Hct 32.6 % (37-53) L 04/08/25 15:48 MCV 99.4 fl (82-101) 04/08/25 15:48 MCH 30.8 pg (27-33) 04/08/25 15:48 MCHC 31.0 g/dL (30-55) 04/08/25 15:48 RDW 19.2 % (12.1-15.1) H 04/08/25 15:48 Plt Count 145 10^3/cmm (157-399) L 04/08/25 15:48 MPV 12.8 fL (7.4-10.4) H 04/08/25 15:48 Neut % (Auto) 73.6 % 04/08/25 15:48 Lymph % (Auto) 11.0 % 04/08/25 15:48 [place] % (Auto) 11.9 % 04/08/25 15:48 Eos % (Auto) 2.4 % 04/08/25 15:48 Baso % (Auto) 0.6 % 04/08/25 15:48 Neut # (Auto) 7.58 10^3/uL (1.8-7.7) 04/08/25 15:48 Lymph # (Auto) 1.1 10^3/uL (0.8-4.8) 04/08/25 15:48 [place] # (Auto) 1.2 10^3/uL (0.2-0.9) H 04/08/25 15:48 Eos # (Auto) 0.3 10^3/uL (0.0-0.8) 04/08/25 15:48 Baso # (Auto) 0.1 10^3/uL (0.0-0.1) 04/08/25 15:48 Nucleated RBC % (auto) 0 % 04/08/25 15:48 Nucleated RBCs # 0.0 /100WBC 04/08/25 15:48 Sodium 137 mmol/L (136-145) 04/08/25 15:48 Potassium 4.6 mmol/L (3.5-5.1) 04/08/25 15:48 Chloride 105 mmol/L (98-107) 04/08/25 15:48 Carbon Dioxide 17 mmol/L (22-29) L 04/08/25 15:48 Anion Gap 19.6 (5-19) H 04/08/25 15:48 BUN 44 mg/dL (8-23) H 04/08/25 15:48 Creatinine 1.7 mg/dL (0.7-1.2) H 04/08/25 15:48 GFR Calculation Not Reportable 04/08/25 15:48 Glucose 109 mg/dL (65-115) 04/08/25 15:48 Calculated Osmolality 296 mOsm/kg (285-295) H 04/08/25 15:48 Calcium 8.3 mg/dL (8.5-10.5) L 04/08/25 15:48 Urine Color Yellow (Yellow) 04/08/25 16:12 Urine Appearance Cloudy (CLEAR) A 04/08/25 16:12 Urine pH 5.5 (5-7) 04/08/25 16:12 Ur Specific [place] 1.013 (1.005-1.030) 04/08/25 16:12 Urine Protein 2+ (Negative) A 04/08/25 16:12 Urine Glucose (UA) Negative (Normal) 04/08/25 16:12 Urine Ketones Negative (Negative) 04/08/25 16:12 Urine Blood 3+ (Negative) A 04/08/25 16:12 Urine Nitrate Negative (Negative) 04/08/25 16:12 Urine Bilirubin Negative (Negative) 04/08/25 16:12 Urine Urobilinogen 1.0 mg/dL (Negative) 04/08/25 16:12 Ur Leukocyte Esterase Trace (Negative) A 04/08/25 16:12 Urine RBC >100 /hpf (0-2) H 04/08/25 16:12 Urine WBC 6-10 /hpf (0-5) 04/08/25 16:12 Ur Squamous Epith Cells 0-5 /hpf (0-5) 04/08/25 16:12 Amorphous Sediment Not Reportable 04/08/25 16:12 Urine Bacteria None seen /hpf (NONE) 04/08/25 16:12 Hyaline Casts 0.40 /lpf 04/08/25 16:12 No radiology studies performed this visit Discharge Plan Discharge Patient Disposition: Home Clinical Impression: Hematuria, Urinary retention Atrial fibrillation Qualifiers: Atrial fibrillation type: persistent (not longstanding) Qualified Code(s): I48.19 - Other persistent atrial fibrillation Condition: Stable Prescriptions: No Action ascorbic acid (vitamin C) 1,000 mg tablet 1 g PO BID@0700,1900 lycopene 10 mg capsule 15 mg PO DAILY@0700 loratadine [Claritin] 10 mg tablet 10 mg PO BEDTIME@1900 lutein-zeaxanthin 25-5 mg capsule 1 cap PO DAILY dorzolamide-timolol 22.3-6.8 mg/mL drops 1 drp ophthalmic (eye) BID cholecalciferol (vitamin D3) 25 mcg (1,000 unit) capsule 25 mcg PO DAILY triamcinolone acetonide [Nasacort] 55 mcg aerosol,spray 2 spray intranasal DAILY PRN (Reason: allergies) Rx Instructions: administer into each nostril nitroglycerin [Nitrostat] 0.4 mg tablet, sublingual 0.4 mg SUBLINGUAL Q5M PRN (Reason: Chest Pain) Qty: 30 2RF spironolactone 25 mg tablet 12.5 mg PO DAILY Qty: 90 3RF tamsulosin 0.4 mg capsule 0.4 mg PO BEDTIME@1900 Qty: 90 3RF atorvastatin 40 mg tablet 40 mg PO DAILY@1900 Qty: 90 4RF levothyroxine [Euthyrox] 150 mcg tablet 150 mcg PO DAILY Qty: 90 0RF methenamine hippurate 1 gram tablet See Rx Instructions .ROUTE .COMPLEX Qty: 60 6RF Dose Instruction: TAKE 1 TABLET BY MOUTH TWICE DAILY, TAKE EACH DOSE WITH 1000 MG OF VITAMIN C Rx Instructions: TAKE 1 TABLET BY MOUTH TWICE DAILY, TAKE EACH DOSE WITH 1000 MG OF VITAMIN C metoprolol succinate 25 mg tablet extended release 24 hr 12.5 mg PO BID Qty: 45 3RF sacubitril-valsartan [Entresto] 49-51 mg tablet 0.5 tab PO BID Qty: 120 0RF amiodarone 400 mg tablet 400 mg PO DAILY Qty: 90 1RF clopidogrel [Plavix] 75 mg tablet 75 mg PO DAILY Qty: 90 3RF mexiletine 150 mg capsule 150 mg PO BID omega-3 fatty acids 1,000 mg Capsule 1,000 mg PO DAILY furosemide 20 mg tablet 20 mg PO DAILY Discharge Orders: Discharge ED (Routine); Ordered 04/08/25 Ordered By: Jacek Turner Referrals: Lizbeth Berrios MD [Primary Care Provider, Internal Medicine] Discharge Diet: Usual diet Discharge Activity: Increase activity as tolerated Patient Instructions: Opioid Safety, Pain Management, Patient Portal & Parvin Instructions Activity Restrictions/Additional Instructions: Thank you for choosing [facility] for your healthcare needs today. It is very important that you follow up as instructed or that you return to the Emergency Department should you have concerns or if your condition changes or worsens in any way. Emergency department visits are focused on emergent conditions, in some cases you may require further evaluation on an outpatient basis. You were seen in the emergency room with complaints of your catheter not working well. We irrigated the catheter and it drained appropriately. We discussed with urologist from [facility]. Recommend you hold the Plavix for now. Follow-up with them next week if you notice a decrease in urine output return to the emergency room to be reevaluated by urology. (Please note that included in your discharge packet is information concerning opioid safety and pain management. This information is given to all patients were discharged from the ER regardless of their discharge diagnosis or the medicines they usually take or are prescribed.) Print Language: Australian Coding Level of Care Code ED Optometric Coordinator for Rod Burnett
--- OUTSIDE RECORDS SUMMARY | 2025-04-08 15:41 | XMS_ITS | Clinical Summary ---
Author Organization [facility] [place] Address [address] [place] [address] Phone Care Team Providers Care Automation Control Integrator Name Role Phone Immanuel Bautista MD, Clive [...] onary atherosclerosis of unspecified type of vessel, minto or graft Administer 1 [place] in each nostril daily. 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 Gender Identity Not on file Sexual Orientation [...] history exists Medical Devices Implanted Type Area Consumer Credit Counselor Device Identifier Shelf Expiration Date Model / Serial / Lot Defibrillator- 01/06/2018 Implanted:Qty: 1 on 01/06/2018 by Julieta William MD Defibrillator 12/05/2018 / [id number] / Rv Lead-01/06/2018 Implanted:Qty: 1 on 01/06/2018 by Julieta William MD Lead 11/13/2019 / [id number] / Lv Lead-01/06/2018 Implanted:Qty: 1 on 01/06/2018 by Julieta William MD Lead 08/13/2019 / [id number] / Insurance MEDICARE PART A AND B [facility] Advance Directives For more information, please contact: [phone] * Full Code (Latest Code Status on File) Date Activated Date Inactivated Comments 01/06/2018 11:37 AM 01/07/2018 11:08 AM * Full Code Date Activated Date Inactivated Comments 11/19/2017 10:35 AM 11/20/2017 1:43 PM * Full Code Date Activated Date Inactivated Comments 11/19/2017 6:02 AM 11/19/2017 10:35 AM Care Teams Automation Control Integrator Relationship Specialty Start Date End Date Clive Gambino Jr., MD [address] [place] [address] PCP - General 08/19/07
--- OUTSIDE RECORDS SUMMARY | 2025-04-08 15:41 | XMS_ITS | Encounter Summary ---
Author Organization [facility] Address [address] [place] [address] Care Team Providers Care Outsole Handler Name Role Phone Immanuel Bautista MD, Clive Fuller Primary Care Provider Encounter Details Date Type Department Care Team (Latest Contact Info) Description 08/21/2006 Outpatient Historical [facility] Cardiology- [place] [address] [place] [address] Other Specified Forms of Chronic Ischemic Heart Disease (Primary Dx); Unspecified Chronic Ischemic Heart Disease; Unspecified Essential Hypertension; Other Premature Beats Social History Tobacco Use Types Packs/Day Years Used Date Smoking Tobacco: Never Assessed Sex and Gender Information Value Date Recorded Sex Assigned at Not on file 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
--- OUTSIDE RECORDS SUMMARY | 2025-04-08 15:41 | XMS_ITS | Encounter Summary ---
Author Organization [facility] Address [address] [place] [address] Care Team Providers Care Supervisor Buffing And Pasting Name Role Phone Immanuel Bautista MD, Clive Fuller Primary Care Provider Encounter Details Date Type Department Care Team (Late st Contact Info) Description 08/19/2007 Outpatient Historical [facility] Cardiology- [place] [address] [place] [address] Navdeep Montalvo MD [address] [address] [place] [address] Social History Tobacco Use Types Packs/Day Years Used Date Smoking Tobacco: Never Assessed Sex and Gender Information Value Date Recorded Sex Assigned at Not on file 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 The NC interval is 218 msec,consistent with very mild first degree AV block. QRS duration 154 msec. QT interval is 420 msec. [place] indeterminate. Right bundle branch block. Nonspecific T abnormality. Navdeep Montalvo M.D., Cardiology , , A, 560, , Doc #: [id number] Electronically Signed by Navdeep Montalvo M.D. 08/26/2007 08:25 cc: NS SERVICE CONDUCTOR documented in this encounter Plan of Treatment Not on file documented as of this encounter Procedures Procedure Name Priority Date/Time Associated Diagnosis Comments ECG REPORT 08/26/2007 8:25 AM TRAINS SERVICE CONDUCTOR documented in this encounter Results * ECG REPORT (08/26/2007 8:25 AM TRAINS SERVICE CONDUCTOR) Narrative Transcriptions Navdeep Montalvo - 08/19/2007 12:00 AM CST 08/19/2007 Tank Saavedra [id number] 1935 12 LEAD ELECTROCARDIOGRAM: Normal sinus rhythm at 52 beats per minute.The NC interval is 218 msec, consistent with very mild first degree AVblock. QRS duration 154 msec. QT interval is 420 msec. Axisindeterminate. Right bundle branch block. Nonspecific T abnormality. Navdeep Montalvo M.D., Cardiology , , A, [address], , Doc #: [id number] Electronically Signed by Navdeep Montalvo M.D. 08/26/2007 08:25 cc: Navdeep Montalvo MD ECG ORDERABLES Final Resul t documented in this encounter Visit Diagnoses Not on filedocumented in this encounter Care Teams Supervisor Buffing And Pasting Relationship Specialty Start Date End Date Clive Gambino Jr., MD [address] [place] [address] PCP - General 08/19/07 documented as of this encounter
--- OUTSIDE RECORDS SUMMARY | 2025-04-08 15:42 | XMS_ITS | Encounter Summary ---
Author Organization [facility] Address [address] [place] [address] Care Team Providers Care Network Coordinator Name Role Phone Immanuel Bautista MD, Clive Fuller Primary Care Provider Reason for Visit * Reason Onset Date Comments Fatigue 12/03/2017 called abou t pts nausea and vomiting. 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 [place] too weak No slurred speech or weakness favoring one side. Answers question. Bp was obtained after trying several times. 116/66 Sr rate 60. Recommend calling ambulance and eval by paramedics. documented in this encounter Plan of Treatment Not on file documented as of this encounter Visit Diagnoses Not on filedocumented in this encounter Care Teams Network Coordinator Relationship Specialty Start Date End Date Clive Gambino Jr., MD [address] [place] [id number] PCP - General 08/19/07 documented as of this encounter
--- OUTSIDE RECORDS SUMMARY | 2025-04-08 15:42 | XMS_ITS | Encounter Summary ---
Author Organization [facility] Address [address] [place] [address] Care Team Providers Care Press Clipper Name Role Phone Immanuel Bautista MD, Clive Fuller Primary Care Provider Encounter Details Date Type Department Care Team (Latest Contact Info) Description 08/17/2005 Outpatient Historical [facility] Cardiology Ancillary Services-[place] [address] [place] [address] CORON ATHEROSCL [place] CORON VESSEL (Primary Dx); PRIM CARDIOMYOPATHY NEC (CMS/HCC) Social History Tobacco Use Types Packs/Day Years Used Date Smoking Tobacco: Never Assessed Sex and Gender Information Value Date Recorded Sex Assigned at Not on file 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
--- OUTSIDE RECORDS SUMMARY | 2025-04-08 15:42 | XMS_ITS | Encounter Summary ---
Author Organization [facility] Address [address] [place] [address] Care Team Providers Care Installer Apprentice Name Role Phone Immanuel Bautista MD, Clive Fuller Primary Care Provider Encounter Details Date Type Department Care Team (Latest Contact Info) Description 03/10/2001 Outpatient Historical [facility] Unspecified essential hypertension (Primary Dx); Pure hypercholesterolem; Unspecified hypothyroidism Social History Tobacco Use Types Packs/Day Years Used Date Smoking Tobacco: Never Assessed Sex and Gender Information Value Date Recorded Sex Assigned at Not on file 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
--- OUTSIDE RECORDS SUMMARY | 2025-04-08 15:42 | XMS_ITS | Encounter Summary ---
Author Organization [facility] Address [address] [place] [address] Care Team Providers Care Grand Scribe Name Role Phone Immanuel Bautista MD, Clive Fuller Primary Care Provider Encounter Details Date Type Department Care Team (Latest Contact Info) Description 11/25/2002 Outpatient Historical [facility] Gen Spec Surg [place] [address] [place] [address] NONTOX MULTINODUL GOITER (Primary Dx) Social History Tobacco Use Types Packs/Day Years Used Date Smoking Tobacco: Never Assessed Sex and Gender Information Value Date Recorded Sex Assigned at Not on file Legal Sex Male 2:37 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
--- OUTSIDE RECORDS SUMMARY | 2025-04-08 15:42 | XMS_ITS | Encounter Summary ---
Author Organization [facility] Address [address] [place] [address] Care Team Providers Care Political Researcher Name Role Phone Immanuel Bautista MD, Clive Fuller Primary Care Provider Encounter Details Date Type Department Care Team (Latest Contact Info) Description 01/13/2003 Outpatient Historical [facility] Cardiology- [place] [address] [place] [address] PREMATURE BEATS NEC (Primary Dx); HYPERTENSION NOS; Pure hypercholesterolem; Preop cardiovascular exam Social History Tobacco Use Types Packs/Day Years Used Date Smoking Tobacco: Never Assessed Sex and Gender Information Value Date Recorded Sex Assigned at Not on file 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
--- OUTSIDE RECORDS SUMMARY | 2025-04-08 15:42 | XMS_ITS | Encounter Summary ---
Author Organization [facility] Address [address] [facility] Attn: [place] [address] Care Team Providers Care Database Management System Specialist Name Role Phone Immanuel Bautista MD, Clive Fuller Primary Care Provider Encounter Details Date Type Department Care Team (Late st Contact Info) Description 03/10/2001 Outpatient Historical Clive Gambino Jr., MD [address] [place] [address] Social History Tobacco Use Types Packs/Day Years Used Date Smoking Tobacco: Never Assessed Sex and Gender Information Value Date Recorded Sex Assigned at Not on file 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
--- OUTSIDE RECORDS SUMMARY | 2025-04-08 15:42 | XMS_ITS | Encounter Summary ---
Author Organization [facility] Address [address] [place] [address] Care Team Providers Care Home Theatre Technician Name Role Phone Immanuel Bautista MD, Clive Fuller Primary Care Provider Encounter Details Date Type Department Care Team (Latest Contact Info) Description [facility]/06/2003 [facility] [place] [address] [place] [address] [place] [address] Alejandro Alejo MD NO ADDRESS ON FILE PREOP CARDIOVASC EXAM (Primary Dx) Social History Tobacco Use Types Packs/Day Years Used Date Smoking Tobacco: Never Assessed Sex and Gender Information Value Date Recorded Sex Assigned at Not on file 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
--- OUTSIDE RECORDS SUMMARY | 2025-04-08 15:42 | XMS_ITS | Encounter Summary ---
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
--- OUTSIDE RECORDS SUMMARY | 2025-04-08 15:42 | XMS_ITS | Encounter Summary ---
Author Organization [facility] Address [address] [place] [address] Care Team Providers Care Licensed Esthetician Name Role Phone Immanuel Bautista MD, Clive Fuller Primary Care Provider Encounter Details Date Type Department Care Team (Latest Contact Info) Description 05/09/2001 Outpatient Historical 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
--- OUTSIDE RECORDS SUMMARY | 2025-04-08 15:42 | XMS_ITS | Encounter Summary ---
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
--- OUTSIDE RECORDS SUMMARY | 2025-04-08 15:42 | XMS_ITS | Encounter Summary ---
Author Organization [facility] Address [address] [place] [address] Care Team Providers Care Mortgage Loan Underwriter Name Role Phone Immanuel Bautista MD, Clive Fuller Primary Care Provider Encounter Details Date Type Department Care Team (Late st Contact Info) Description 12/10/2017 Ancillary Orders [facility] Electrophysiology Lab [address] [place] [address] Julieta William MD [address] [facility] [address] [place] [address] Social History Tobacco Use Types Packs/Day Years Used Date Smoking Tobacco: Never Smokeless Tobacco: Never Alcohol Use Standard Drinks/Week Comments No 0 (1 standard drink = 0.6 oz pur e alcohol) Sex and Gender Information Value Date Recorded Sex Assigned at Not on file 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
--- OUTSIDE RECORDS SUMMARY | 2025-04-08 15:42 | XMS_ITS | Encounter Summary ---
Author Organization [facility] Address [address] [place] [address] Care Team Providers Care Chimney Supervisor Brick Name Role Phone Immanuel Bautista MD, Clive Fuller Primary Care Provider Encounter Details Date Type Department Care Team (Latest Contact Info) Description 04/19/2000 Outpatient Historical [facility] Other and unspecified hyperlipidemia (Primary Dx); Unspecified essential hypertension Social History Tobacco Use Types Packs/Day Years Used Date Smoking Tobacco: Never Assessed Sex and Gender Information Value Date Recorded Sex Assigned at Not on file 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
--- OUTSIDE RECORDS SUMMARY | 2025-04-08 15:42 | XMS_ITS | Encounter Summary ---
Author Organization [facility] Address [address] [place] [address] Care Team Providers Care Gristmiller Name Role Phone Immanuel Bautista MD, Clive Fuller Primary Care Provider Encounter Details Date Type Department Care Team (Latest Contact Info) Description 07/22/2000 Outpatient Historical [facility] Unspecified hypothyroidism (Primary Dx); Pure hypercholesterolem; Unspecified essential hypertension; Inhibited sex excitement Social History Tobacco Use Types Packs/Day Years Used Date Smoking Tobacco: Never Assessed Sex and Gender Information Value Date Recorded Sex Assigned at Not on file 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 Sex Male 2:37 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
--- OUTSIDE RECORDS SUMMARY | 2025-04-08 15:42 | XMS_ITS | Encounter Summary ---
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
--- OUTSIDE RECORDS SUMMARY | 2025-04-08 15:42 | XMS_ITS | Encounter Summary ---
Author Organization [facility] Address [address] [place] [address] Care Team Providers Care Mechanical Engineering Advisor Name Role Phone Immanuel Bautista MD, Clive Fuller Primary Care Provider Encounter Details Date Type Department Care Team (Latest Contact Info) Description 01/13/2003 Outpatient Historical [facility] Cardiovascular Services [id number] [place] [address] Navdeep Montalvo [place] [address] [address] [place] [address] CONDUCTION DISORDER NOS (Primary Dx) Social History Tobacco Use Types Packs/Day Years Used Date Smoking Tobacco: Never Assessed Sex and Gender Information Value Date Recorded Sex Assigned at Not on file Legal Sex Male 2:37 AM 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
--- OUTSIDE RECORDS SUMMARY | 2025-04-08 15:42 | XMS_ITS | Encounter Summary ---
Author Organization [employer] [facility] Address [address] [place] [address] Care Team Providers Care Advertising Dispatch Clerks Supervisor Name Role Phone Immanuel Bautista MD, Clive Fuller Primary Care Provider Encounter Details Date Type Department Care Team (Latest Contact Info) Description 04/17/2001 Outpatient Historical [facility] Pure hypercholesterolem (Primary Dx); Other and unspecified hyperlipidemia Social History Tobacco Use Types Packs/Day Years Used Date Smoking Tobacco: Never Assessed Sex and Gender Information Value Date Recorded Sex Assigned at Not on file 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
--- OUTSIDE RECORDS SUMMARY | 2025-04-08 15:42 | XMS_ITS | Encounter Summary ---
Author Organization [facility] Address [address] [place] [address] Care Team Providers Care Picture Frames Inspector Name Role Phone Immanuel Bautista MD, Clive Fuller Primary Care Provider Encounter Details Date Type Department Care Team (Latest Contact Info) Description 03/11/2000 Outpatient Historical [facility] Pure hypercholesterolem (Primary Dx); Unspecified essential hypertension; Encounter for long-term (current) use of other medications Social History Tobacco Use Types Packs/Day Years Used Date Smoking Tobacco: Never Assessed Sex and Gender Information Value Date Recorded Sex Assigned at Not on file 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
--- OUTSIDE RECORDS SUMMARY | 2025-04-08 15:42 | XMS_ITS | Encounter Summary ---
Author Organization [facility] Address [address] [place] [address] Care Team Providers Care Agricultural Loan Officer Name Role Phone Immanuel Bautista MD, Clive Fuller Primary Care Provider Encounter Details Date Type Department Care Team (Latest Contact Info) Description 09/06/2000 Outpatient Historical [facility] Unspecified sinusitis (chronic) (Primary Dx); Acute sinusitis, unspecified Social History Tobacco Use Types Packs/Day Years Used Date Smoking Tobacco: Never Assessed Sex and Gender Information Value Date Recorded Sex Assigned at Not on file 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
--- OUTSIDE RECORDS SUMMARY | 2025-04-08 15:42 | XMS_ITS | Encounter Summary ---
Author Organization [employer] 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
--- OUTSIDE RECORDS SUMMARY | 2025-04-08 15:42 | XMS_ITS | Encounter Summary ---
Author Organization [facility] Address [address] [place] [address] Care Team Providers Care Lead Electrical Controls Engineer Name Role Phone Immanuel Bautista MD, Clive Fuller Primary Care Provider Encounter Details Date Type Department Care Team (Latest Contact Info) Description 11/11/2002 Outpatient Historical [facility] Imaging Services-[facility] [address] [place] [address] NONTOX UNINODULAR GOITER (Primary Dx) Social History Tobacco Use Types Packs/Day Years Used Date Smoking Tobacco: Never Assessed Sex and Gender Information Value Date Recorded Sex Assigned at Not on file 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
--- OUTSIDE RECORDS SUMMARY | 2025-04-08 15:42 | XMS_ITS | Encounter Summary ---
Author Organization [facility] Address [address] [place] [address] Care Team Providers Care Warehouse Operations Associate Name Role Phone Immanuel Bautista MD, [...] Expiration Date Visits Re quested Visits Authorized [id number] Closed 10/30/2017 11/30/2018 1 1 Encounter Details Date Type Department Care Team (Late st Contact Info) Description 10/30/2017 Ancillary Orders [facility] Cardiology- [place] [address] [place] [address] Tank Davis MD [address] [facility] [address] [place] [address] Aortic valve stenosis, etiology of cardiac valve disease unspecified Social History Tobacco Use Types Packs/Day Years Used Date Smoking Tobacco: Never Smokeless Tobacco: Never Sex and Gender Information Value Date Recorded Sex Assigned at Not on file 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 [id number] Narrative 10/30/2017 3:[address] CARDIAC [...] can be seen with bronchiolitis/small airways disease. [id number] ORDERABLES Final Result documented in this encounter Visit Diagnoses Diagnosis Aortic valve stenosis, etiology of cardiac valve disease unspecified Aortic valve stenosis, etiology of cardiac valve disease unspecified documented in this encounter Care Teams Warehouse Operations Associate Relationship Specialty Start Date End Date Clive Gambnio Jr., MD [address] [place] [phone] PCP - General 08/19/07 documented as of this encounter
--- OUTSIDE RECORDS SUMMARY | 2025-04-08 15:42 | XMS_ITS | Clinical Summary ---
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 Gender Identity Not on file Sexual [...] history exists Medical Devices Implanted Type Area Instrumentation Supervisor Device Identifier Shelf Expiration Date Model / Serial / Lot Defibrillator- 01/06/2018 Implanted:Qty: 1 on 01/06/2018 by Julieta William MD Defibrillator 12/05/2018 / [id number] / Lv Lead-01/06/2018 Implanted:Qty: 1 on 01/06/2018 by Julieta William MD Lead 08/13/2019 / [id number] / Rv Lead-01/06/2018 Implanted:Qty: 1 on 01/06/2018 by Julieta William MD Lead 11/13/2019 / [id number] / Insurance Care Teams Assistant Federal Public Defender Relationship Specialty Start Date End Date Clive Gambino Jr., MD [facility] [place] [phone] PCP - General 08/19/07
--- OUTSIDE RECORDS SUMMARY | 2025-04-08 15:42 | XMS_ITS | Encounter Summary ---
Author Organization [employer] [facility] Address [address] [place] [address] Care Team Providers Care Milk Route Supervisor Name Role Phone Immanuel Bautista MD, Clive Fuller Primary Care Provider Encounter Details Date Type Department Care Team (Latest Contact Info) Description 03/21/2001 Outpatient Historical [facility] Pure hypercholesterolem (Primary Dx); Other and unspecified hyperlipidemia Social History Tobacco Use Types Packs/Day Years Used Date Smoking Tobacco: Never Assessed Sex and Gender Information Value Date Recorded Sex Assigned at Not on file 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
--- OUTSIDE RECORDS SUMMARY | 2025-04-08 15:42 | XMS_ITS | Encounter Summary ---
Author Organization [facility] Address [address] [place] [address] Care Team Providers Care Nicker Name Role Phone Immanuel Bautista MD, Clive Fuller Primary Care Provider Encounter Details Date Type Department Care Team (Latest Contact Info) Description 04/24/2001 Outpatient Historical [facility] RT BUNDLE BRANCH BLOCK (Primary Dx); HYPERTENSION NOS; Hypertrophy of prostate; VACCINE FOR INFLUENZA Social History Tobacco Use Types Packs/Day Years Used Date Smoking Tobacco: Never Assessed Sex and Gender Information Value Date Recorded Sex Assigned at Not on file 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
--- OUTSIDE RECORDS SUMMARY | 2025-04-08 15:42 | XMS_ITS | Encounter Summary ---
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
--- OUTSIDE RECORDS SUMMARY | 2025-04-08 15:42 | XMS_ITS | Patient Health Record ---
Author Organization [facility] Address [address] [facility] [place] [address] Care Team Providers Care Internet Sales Representative Name Role Phone Lizbeth Berrios Primary Care Provider LAILA Cole Unavailable [phone] BENITEZ BARFIELD Unavailable [phone] Allergies Allergen (clinical drug ingredient) Drug/Non Drug Allergy documented on EMR Reaction Allergy Type Onset Date Status Levaquin Unknown Drug Allergy Active Niaspan rash Drug Allergy Active fenofibrate Tricor Unknown Drug Allergy Activ e fenofibrate Fenofibrate allergy Drug Allergy Act cinthya Results Component Value Reference Range Notes Basic Metabolic Panel Reviewed date:03/30/2025 07:58:40 AM Interpretation: Performing Lab: Notes/Report: Testing performed at [facility], [address] [place] [address] [place] [address]. CLIA ID#: [id number] J-ijsmjh-q-benzoquinone imine (NAPQI) is a metabolite of acetaminophen, NAPQI concentrations of apparoximately 10 mg/L correlation to toxic levels of acetaminophen demonstrates a greater than or equil to 10% change in results. NAPQI concentrations greater than this may lead to falsely depressed results for patient samples. Calculation performed from GFR calculator provided by the National [employer] Foundation. Glomerular Filtration rate(GRF) is the best overall index of kidney function. Normal GFR varies according to age,sex, body size, and declines with age. The National Kidney Foundation recommends using the CKD-EPI Creatinine Equation(2020) to estimate GFR. Testing performed at: [address] [place] [address] CLIA ID [id number] Use of this assay is not recommended for patients undergoing treatment with phenindione, due to the potential for falsely depressed results. Sodium 140 136-145 MMOL/L Potassium 4.1 3.5-5.1 MMOL/L Chloride 110 98-107 MMOL/L CO2 20.1 20.0-31.0 MMOL/L Glucose Serum 104 71-110 MG/DL BUN 33 7-21 MG/DL Creat 1.58 .57-1.17 MG/DL GFR 41.4 Anion Gap 14 5-15 BUN/Creat Ratio 20.9 12.0-20.0 % Calcium 8.1 8.7-10.4 MG/DL Osmo Serum,Calculated 297 280-300 MOSM/KG CBC w/ Auto Diff Reviewed date:03/29/2025 03:21:14 PM Interpretation: Performing Lab: Notes/Report: Testing performed at: [place] [address] CLIA ID [id number] WBC 7.6 4.5-11.0 X10'3 RBC 4.08 4.50-5.90 X10'6 Hgb 12.3 13.5-17.5 G/DL Hct 38.9 41.0-53.0 % MCV 95.3 80.0-100.0 FL MCH 30.1 27.0-31.0 PG MCHC 31.6 31.0-37.0 G/DL Platelet 119 150-400 X10'3 RDW-SD 59.9 35.0-49.0 FL RDW-CV 17.5 12.2-15.6 % MPV 12.8 9.2-12.0 FL Neutro Auto% 72.2 40.0-70.0 % Lymph Auto% 11.1 22.0-44.0 % Caldwell Auto% 9.4 3.0-7.0 % Eos Auto% 5.8 2.0-4.0 % Baso Auto% 0.7 0.0-1.0 % Imm Gran% .8 .0-.4 % Neutro Abs 5.49 .80-7.70 Absolute Neutrophil Count 5490 Lymph Abs .84 .10-4.10 Caldwell Abs .71 .20-1.00 Eos Abs .44 .00-.40 Baso Abs .05 .00-.20 Imm Gran Abs .06 .00-.10 NRBC# .00 .00-.20 NRBC% .00 .00-.20 /100 intact WBC's Reason For Referral No Information Medications Medication SIG (Take, Route, Frequency, Duration) Notes Start Date End Date Status Furosemide 40 MG 2 tablet daily at 8am and 1 at 2pm Orally daily; Duration: 90 days dose increase Active Plavix 75 MG 1 tablet Orally Once a day Active Lycopene 10 MG 1 capsule with a meal Orally Once a day Active Vitamin C 1000 MG 1 tablet Orally twice daily Active Cefdinir 300 MG one capsule Orally twice daily for 7 days; Duration: 7 days Not-Taking Spironolactone 25 MG TAKE 1 TABLET BY MOUTH ONCE DAILY IN THE MORNING; Duration: 30 Active Euthyrox 150 MCG TAKE 1 TABLET BY MOUTH ONCE DAILY FOR 90 DAYS (TAKE THIS MEDICATION SEPERATE FROM OTHER MEDICINES,VITAMI NS, AND FOOD); Duration: 90 Not-Taking Jenkinjones 3 1000 MG 1/2 capsule Orally Once a day Active Pepcid 20 MG one in the AM and one in the PM Orally twice a day; Duration: 30 day(s) Not-Taking Claritin 10 MG 1 tablet Orally Once a day Active Potassium Chloride ER 20 MEQ 1 tablet with food Orally Twice a day; Duration: 90 days Not-Taking Tamsulosin HCl 0.4 MG Take 1 capsule by mouth once daily at bedtime; Duration: 30 Active Nitroglycerin 0.4 MG Dissolve 1 tablet(s) under the tongue may repeat every 5 minutes. Maximum of 3 doses in 15 minutes Sublingual; Duration: 30 12/05/2011 Active Nasacort AQ 55 mcg 2 spray(s) in each nostril daily NASAL; Duration: 30 *[facility] from [facility] for eRx and Interaction Alerts* 11/30/2013 Not-Taking Entresto 49-51 MG 1 tablet Orally Twice a day Active Methenamine Hippurate 1 GM 1 tablet Orally Twice a day Active Levothyroxine Sodium 150 MCG 1 tablet in the morning on an empty stomach Orally Once a day 05/29/2023 Active Amiodarone HCl 400 MG 1 tablet Orally Once a day Active Vitamin D 25 MCG (1000 UT) 1 tablet Orally Once a day Active Mexiletine HCl 2 tabs a day Ac tive Atorvastatin Calcium 40 MG TAKE 1 TABLET BY MOUTH ONCE DAILY AT BEDTIME; Duration: 90 Active Immunizations Vaccine Route Administration Date Status [...] Status W/U Status Risk Notes Problem Hypocalcemia (8844326) Hypocalcemia (E83.51) Active confirmed Problem Acute on chronic combined systolic and diastolic heart failure (004805082247175) Acute on chronic combined systolic (congestive) and diastolic (congestive) heart failure (I50.43) Active confirmed Problem Phimosis (310946601) Phimosis (N47.1) Active co nfirmed Problem Incision of bladder (42051135) Encounter for attention to cystostomy (Z43.5) Active confirmed Problem Essential hypertension (32259992) Essential hypertension (I10) Active confirmed Problem Hypercholesterolemia (78632762) Hypercholesterolemia (E78.00) Active confirmed Problem Lower urinary tract symptoms due to benign prostatic hypertrophy (07813915725874) Benign prostatic hyperplasia with lower urinary tract symptoms (N40.1) Active confirmed Problem Lower urinary tract symptoms due to benign prostatic hypertrophy (36030281085528) Benign localized hyperplasia of prostate with urinary obstruction (N40.1) Active confirmed Problem Iron deficiency anemia (26369796) Iron deficiency anemia, unspecified iron deficiency anemia type (D50.9) Active confirmed Problem Chronic retention of urine (724478358) 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) Active confirmed Problem Benign prostatic hyperplasia (192054208) BPH (benign prostatic hyperplasia) (N40.0) Active confirmed Problem Heart failure (85074707) Chronic congestive heart failure, unspecified heart failure type (I50.9) Active confirmed Problem Encounter for Fo virgen catheter replacement (Z46.6) Active confirmed Problem Catheterization of urinary bladder (902212261) Wang catheter in place (Z96.0) Active confirmed Problem Hypertension (13132170) Hypertension (I10) Active confirmed Problem Bradycardia (39089521) Bradycardia (R00.1) Active confirmed Problem History of placement of stent for coronary artery disease (situation) (085245543) History of heart artery stent (Z95.5) Active confirmed Problem Hypothyroidism (75467940) Hypothyroidism (E03.9) Active confirmed Problem History of transurethral resection of prostate (616304057) Status post transurethral resection of prostate (Z90.79) Active confirmed Problem Epididymo-orchitis (276308021) Epididymoorchitis (N45.3) Active confirmed Problem Recurrent urinary tract infection (345990555) Recurrent UTI (N39.0) Active confirmed Problem Long-term current us e of anticoagulant (020163393) Anticoagulated (Z79.01) Active confirmed Problem Atrial fibrillation (03409181) Atrial fibrillation (427.31) 2014 Active confirmed [id number]- Problem 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 Active confirmed [id number]- Problem Congestive heart failure (58221143) Congestive heart failure (428.0) 2015 Active confirmed [id number]- Problem Hypercholesterolemia (95269905) Hypercholesterolemia (272.0) 2009 Active confirmed [id number]- Problem 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 Active confirmed [facility][id number]- Problem Mixed hyperlipidemia (447061959) Mixed hyperlipidemia (272.2) 2006 Problem resolved confirmed [facility][id number]- Problem Gout (96223525) Gout, unspecifie d (274.9) 2017 Problem resolved confirmed [facility][id number]- Problem Hypocalcemia (2350863) Hypocalcemia (275.41) 2002 Problem resolved confirmed [facility][id number]- Problem Anemia (082546316) Unspecified a nemia (285.9) 2018 Problem resolved confirmed [facility][id number]- Problem Acute non-suppurativ e otitis media - serous (820614485) Acute serous otitis media (381.01) 2011 Problem resolved confirmed [facility][id number]- Problem Congestive heart failure (86418526) Congestive heart failure, unspecified (428.0) 2018 Problem resolved confirmed [facility][id number]- Problem Actinic keratosis (879970) Actinic keratosis (702.0) 2005 Problem resolved confirmed [facility]98 [id number]- Problem Pressure ulcer of buttock (309609329) Pressure ulcer, buttock (707.05) 2017 Problem resolved confirmed [facility][id number] [id number]- Problem Shortness of breath (764275843) Shortness of breath (786.05) 2011 Problem resolved confirmed [facility]98 [id number]- Problem Basal cell carcinoma of face (839037231) Basal cell carcinoma of skin of other and unspecified parts of face (173.31) 2014 Problem resolved confirmed [facility]98 [id number]- Problem Ear ache (802662924) Ear ache (388.71) 2011 Problem resolved confirmed [facility]98 [id number]- Problem Mixed hyperlipidemia (472109480) Hypercholesterolemia with hypertriglyceridemia (272.2) 2005 Problem resolved confirmed [facility]98 [id number]- Problem Infected abrasio n or friction burn of hip, thigh, leg, and ankle (916.1) 2004 Problem resolved confirmed [facility][id number] [id number]- Problem Influenza (2635226) Influenza (487.8) 2005 Problem resolved confirmed [facility][id number] [id number]- Problem Influenza immunization (18210116) Influenza immunization (V04.81) 2018 Problem resolved confirmed [facility]98 [id number]- Problem 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) Elevated homocysteine level (270.4) 2004 Problem resolved confirmed [facility]98 [id number]- Problem Generalized abdomina l pain (737536238) Generalized abdominal pain (789.07) 2006 Problem resolved confirmed [facility]98 [id number]- Problem Hyponatremia (28113811) Hyponatremia (276.1) 2016 Problem resolved confirmed [facility]98 [id number]- Problem Pneumonia and influenza (009773344) Influenza, with pneumonia (487.0) 2016 Problem resolved confirmed [facility]98 [id number]- Problem Shortness of breath (994633164) Shortness of breath (786.09) 2016 Problem resolved confirmed [facility]98 [id number]- Problem Drug reaction (62925752) Drug reaction (995.2) 2005 Problem resolved confirmed [facility]98 [id number]- Problem Screening for malignant neoplasm of colon (483193485) Screening for colorectal cancer (V76.49) 2013 Problem resolved confirmed [facility]98 [id number]- Problem Vaccine-other combinations (V06.8) 2006 Problem resolved confirmed [facility]98 [id number]- Problem Lab: Used to mat ch unlinked laboratory orders (V92) 2014 Problem resolved confirmed [facility]98 [id number]- Problem Dry skin (46286909) Dry skin (701.8) 02/23 Problem resolved confirmed [facility]98 [id number]- Problem History of multiple allergies (situation) (786211933) Allergies (477.0) 2009 Problem resolved confirmed [facility]98 [id number]- Problem History of thyroidectomy (528537681) History of thyroidectomy (V15.2) 2003 Problem resolved confirmed [facility]98 [id number]- Problem Mitral and aortic stenosis (349999571) Aortic stenosis (396.0) 2014 Problem resolved confirmed [facility]98 [id number]- Problem Hypotension (21485736) Hypotension, other (458.8) 2017 Problem resolved confirmed [facility]98 [id number]- Problem Microalbuminuria (105029801) Microalbuminuria (791.0) 2016 Problem resolved confirmed [facility]98 [id number]- Problem Inflamed seborrheic keratosis (563376467) Atypical seborrheic keratosis (702.11) 2003 Problem resolved confirmed [facility]98 [id number]- Problem Generalized pain (97073810) Generalized pain (780.99) 2016 Problem resolved confirmed [facility]98 [id number]- Problem Disorder of hematopoietic system (25628200) Other abnormal findings on blood examination (790.99) 2016 Problem resolved confirmed [facility]98 [id number]- Problem Disorder of hematopoietic system (66339211) Other abnormal laboratory result on blood (790.99) 2005 Problem resolved confirmed [facility]98 5911- Problem Localized, primary osteoarthritis of the ankle and/or foot (137379824) 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 Problem resolved confirmed [facility]98 5911- Problem Stiff neck (322301516) stiff neck (781.6) 2016 Problem resolved confirmed [facility]98 5911- Problem Laceration on th e finger(s) (883.0) 2014 Problem resolved confirmed [facility]98 [id number]- Problem Electrocardiogram abnormal (397267897) Abnormal EKG (794.31) 2011 Problem resolved confirmed [facility]98 [id number]- Problem Osteoporosis (30397143) Osteoporosis (733.09) 2003 Problem resolved confirmed [facility]98 5911- Problem Nausea and vomiting (74617092) Nausea and vomiting (787.01) 2017 Problem resolved confirmed [facility]98 5911- Problem Needs influenza immunization (130224555) Vaccination against other viral diseases, Influenza (V04.81) 2007 Problem resolved confirmed [facility]98 5911- Problem Dry skin (03921686) Dry skin (701.1) 12/23 Problem resolved confirmed [facility]98 [id number]- Problem Coronary artery disease (17039081) CAD (414.01) 2008 Problem resolved confirmed [facility]98 [id number]- Problem Essential hypertension (98655925) Essential hypertension (401.1) 2004 Problem resolved confirmed [facility]98 5911- Problem Coronary artery disease (30115808) Coronary artery disease (414.01) 2004 Problem resolved confirmed [facility]98 5911- Problem Impacted cerumen (96211554) External cerumen impaction (380.4) 2016 Problem resolved confirmed [facility]98 5911- Problem Hypertension (33833182) HTN (401.1) 2004 Problem resolved confirmed [facility]98 5911- Problem Mitral valve insufficiency (68537623) Mitral valve insufficiency (424.0) 2014 Problem resolved confirmed [facility]98 5911- Problem Gallbladder calculus (009560539) Cholelithiasis, without mention of obstruction (574.20) 2006 Problem resolved confirmed [facility]98 5911- Problem Mixed hyperlipidemia (367682841) Combined hyperlipidemia (272.4) 2006 Problem resolved confirmed [facility]98 5911- Problem Sore throat (502464259) Sore Throat (462) 2007 Problem resolved confirmed [facility]98 5911- Problem Polycythemia vera (711939592) Polycythemia vera (238.4) 2012 Problem resolved confirmed [facility]98 5911- Problem Thyroid function tests abnormal (273707598) Abnormal thyroid findings (794.5) 2003 Problem resolved confirmed [facility]98 5911- Problem Candidal intertrigo (415614001) Candidal intertrigo (112.3) 2008 Problem resolved confirmed [facility]98 5911- Problem Coronary arteriosclerosis (disorder) (13407820) ASHD (414.01) 2005 Problem resolved confirmed [facility]98 5911- Problem Syncope (337601243) Syncope (780.2) 02/28 Problem resolved confirmed [facility]98 5911- Problem Electrocardiogram abnormal (842961608) Prolonged Q-T interval (794.31) 2014 Problem resolved confirmed [facility]98 5911- Problem Calculus of bile rita t with acute cholecystitis without obstruction (13991759) Acute choledocholithiasis (574.30) 2006 Problem resolved confirmed [facility]98 5911- Problem 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 Problem resolved confirmed [facility]98 5911- Problem Gallstones (251051359) Gallstones (574.20) 2006 Problem resolved confirmed [facility]98 5911- Problem Acquired hypothyroidism (026688770) Acquired hypothyroidism (244.8) 2009 Problem resolved confirmed [facility]98 5911- Problem Swollen lymph nodes (89958649) Swollen lymph nodes (785.6) 2018 Problem resolved confirmed [facility]98 5911- Problem Disorder of lipid metabolism (048403389) Low HDL level (272.9) 2006 Problem resolved confirmed [facility]98 5911- Problem Multiple joint pain (69890120) Joint pain, multiple sites (719.49) 2005 Problem resolved confirmed [facility]98 5911- Problem Rash (002238791) Rash (782.1) 2007 Problem resolved confirmed [facility]98 5911- Problem Dizziness (813692698) Dizziness (780.4) 0 2010 Problem resolved confirmed [facility]98 5911- Problem Iron deficiency anemia (60562816) Iron deficiency anemia, unspecified (280.9) 2018 Problem resolved confirmed [facility]98 5911- Problem Screening for malignant neoplasm of prostate (946403510) Screening for prostate cancer (V76.44) 2007 Problem resolved confirmed [facility]98 5911- Problem Anemia (451978124) Anemia, unspe cified (285.9) 2017 Problem resolved confirmed [facility] 5911- Vital Signs Heart Rate 69 /min 04/07/2025 Blood pressure diastolic 69 mm Hg 04/07/2025 Weight-kg 89.45 kg 04/07/2025 Height 69 in 04/07/2025 Blood pressure systolic 119 mm Hg 04/07/2025 Weight 197.2 lbs 04/07/2025 BMI 29.12 kg/m2 04/07/2025 Procedures Procedure Date Ordered Date Performed Result Body Sit e Catheter Insertion-Routine 04/07/2025 04/07/2025 N/A Encounters Encounter Location Date Provider Diagnosis [facility] [address] [place] [address] 02/08/2025 LAILA RENDON Benign localized hyperplasia of prostate with urinary obstruction N40.1 ; Chronic retention of urine R33.9 ; Status post transurethral resection of prostate Z90.79 and Recurrent UTI N39.[address] [facility] [address] [place] [address] 04/07/2025 BENITEZ BARFIELD Gross hematuria R31. 0 ; History of recent hospitalization Z92.89 ; Chronic indwelling Wang catheter Z97.8 ; Urinary retention R33.9 ; Anticoagulated Z79.01 and History of heart artery stent Z95.5 Assessments Encounter Date Diagnosis (ICD Code) Assessment Notes Treatment Notes Treatment Clinical Notes Section Notes 04/07/2025 Gross hematuria (ICD-10 - R31.0) 04/07/2025 History of recent hospitalization (ICD-10 - Z92.89) 02/08/2025 Benign localized hyperplasia of prostate with [...] catheter well with appropriate home health management. 04/07/2025 Chronic indwelling Wang catheter (ICD-10 - Z97.8) 04/07/2025 Urinary retention (ICD-10 - R33.9) 02/08/2025 Status post transurethral resection of prostate [...] catheter well with appropriate home health management. 04/07/2025 Anticoagulated (ICD-10 - Z79.01) 04/07/2025 History of heart artery stent (ICD-10 - Z95.5) 04/07/2025 Other Exchange Wang today to 16 or 18 F Coude as he still has a 3 way hematuria catheter in from [place]. Home Health will take over exchanges as they were doing prior to hospitalization . Keep f/u with PCP and Cardiology. RTC as scheduled, or PRN sooner. 02/08/2025 Other # Urinary Retention with Indwelling [...] Bolton, 02/14/2026 01:50:00 PM, [address] [place], [address], Insurance Providers Payer Name Payer Address Payer Phone Subscriber Number Group Number Insured Name Patient Relationship to Insured Coverage Start Date Coverage End Date [employer] Medicare Advantage PPO [address] [address] [place], [place] [id number] Tank Saavedra Self - patient is the [...] thyroid surgery battery replaced in pacemaker 01/2025 2 heart stents placed 03/19/25 Hospitalization History Reason Date(Month/Year) hospital stay for pacemaker trouble UTI, COVID, received blood transfusion 0 01/2021 GI bleed 10/2020 bacteria in blood 03/2020 Surgeries
--- OUTSIDE RECORDS SUMMARY | 2025-04-08 15:42 | XMS_ITS | Encounter Summary ---
Author Organization 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
--- OUTSIDE RECORDS SUMMARY | 2025-04-08 15:42 | XMS_ITS | Encounter Summary ---
Author Organization [facility] Address [address] [place] [address] Care Team Providers Care Lithographic Photographer Apprentice Name Role Phone Immanuel Bautista MD, Clive Fuller Primary Care Provider Reason for Referral * Auth/Cert (Routine) Specialty Diagnoses / Procedures Referred By Contac t Referred To Contact Cardiology Diagnoses Cardiomyopathy, unspecified type (CMS/HCC) Procedures CL BI V ICD IMPLANT Julieta William MD Phone: tel: fax: [facility] Cardiac Reach Truck Operator [address] [place] [address] Phone: tel: fax: Referral ID Status Reason Start Date Expiration Date Visits Requested Visits Authorized [id number] Ordering Department To Schedule 12/10/2017 01/10/2019 1 1 Encounter Details Date Type Department Care Team (Late st Contact Info) Description 12/10/2017 Ancillary Orders [facility] [place] [address] [place] [address] Julieta William MD [address] [facility] [address] [place] [address] Cardiomyopathy, unspecified type (CMS/HCC) Social History Tobacco Use Types Packs/Day Years Used Date Smoking Tobacco: Never Smokeless Tobacco: Never Alcohol Use Standard Drinks/Week Comments No 0 (1 standard drink = 0.6 oz pur e alcohol) Sex and Gender Information Value Date Recorded Sex Assigned at Not on file 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 Medtronic BiV/ICD Implant 2. Medtronic Dual Chamber Pacemaker Explant 3. Contrast Venography 4. Left Subclavian Vein Access 5. Device Interrogation 6. Capping of Right Ventricular Pacemaker Lead 7. Conscious Sedation 8. Fluoroscopy with Interpretation Operators: 1. Julieta William MD, [facility] - Clinical Cardiac Electrophysiology Indication: 82 y/o [...] towards implanting of the LV lead. A Greasebook Extended Hook sheath was passed into the [...] 1114. Device Model: Medtronic Viva Quad XT CIGARETTE MAKER-D [id number] ATRIAL Lead: QUINCY [id number] Pacing Threshold: 1.0V @ 0.4ms Impedance: 342 ohms P wave: 1.0 mV RIGHT VENTRICULAR Lead: T [id number] Pacing Threshold: 0.75V @ 0.4ms Impedance: 399 ohms R wave: Paced LEFT VENTRICULAR Lead: QUINCY 4598/[id number] Pacing Threshold: 0.75V @ 0.4ms Impedance: 456 ohms R wave: Paced Complications: None Summary: 1. Successful BiV/ICD Upgrade 2. Stenotic Left Subclavian Vein Julieta William MD, FAC, RS Clinical Cardiac Electrophysiology American Sign Language Teacher of Clinical Medicine [facility] Julieta William MD FLUOROSCOPY ORDERABLES Final Result [facility] documented in this encounter Visit Diagnoses Diagnosis Cardiomyopathy, unspecified type (CMS/HCC) Ischemic cardiomyopathy- Primary Other specified forms of chronic ischemic heart disease Cardiomyopathy, unspecified type (CMS/HCC) documented in this encounter Care Teams Lithographic Photographer Apprentice Relationship Specialty Start Date End Date Clive Gambino Jr., MD [address] [place] [address] PCP - General 08/19/07 documented as of this encounter
--- OUTSIDE RECORDS SUMMARY | 2025-04-08 15:42 | XMS_ITS | Encounter Summary ---
Author Organization [facility] Address [address] [place] [address] Care Team Providers Care Cutch Cleaner Name Role Phone Immanuel Bautista MD, Clive Fuller Primary Care Provider Encounter Details Date Type Department Care Team (Latest Contact Info) Description 04/29/2000 Outpatient Historical [facility] Routine medical exam (Primary Dx); Screening for other and unspecified endocrine, nutritional, metabolic and immunity disorders; Special screening for malignant neoplasms of other sites; Screening for nephropathy Social History Tobacco Use Types Packs/Day Years Used Date Smoking Tobacco: Never Assessed Sex and Gender Information Value Date Recorded Sex Assigned at Not on file 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
--- OUTSIDE RECORDS SUMMARY | 2025-04-08 15:43 | XMS_ITS | Encounter Summary ---
Author Organization [facility] Address [address] [place] [address] Care Team Providers Care Form Maker Name Role Phone Immanuel Bautista MD, Clive Fuller Primary Care Provider Encounter Details Date Type Department Care Team (Latest Contact Info) Description 08/16/[address] 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
--- OUTSIDE RECORDS SUMMARY | 2025-04-08 15:43 | XMS_ITS | Patient Health Record ---
Author Organization [facility] Address [address] [place] [address] Care Team Providers Care Glass Maker Name Role Phone DR. Lizbeth Berrios Primary Care Provider Ranjeet Jansen Tonyzena Amos [phone] Allergies Allergen (clinical drug ingredient) Drug/Non Drug Allergy documented on EMR Reaction Allergy Type Onset Date Status Levaquin Unknown Drug Allergy Active Niaspan rash Drug Allergy Active fenofibrate Tricor Unknown Drug Allergy Activ e Results Component Value Reference Range Notes Echo Complete [id number] Reviewed date:04/02/2025 10:26:43 AM Interpretation: Performing Lab: Notes/Report: Cardiopulmonary Services Name: JOSAFAT SAAVEDRA Study Date: 03/28/2025 : 1935 Patient Location: [facility] Age: 89 yrs Gender: Male Height: 68 in Weight: 188 lb BSA: 2.0 m2 Reason For Study: recent PCI Interpretation Summary The left ventricle is mildly dilated. Left ventricular systolic function is severely reduced. Left Ventricular Function is estimated to be 25-30%. There are regional wall motion abnormalities as specified. The right ventricle is moderately dilated. The left atrium is mildly dilated. The right atrium is moderately dilated. There is moderate mitral regurgitation. There is moderate to severe tricuspid regurgitation. Mild aortic regurgitation. Mild pulmonic valvular regurgitation. There is a AICD lead in the right ventricle. Left Ventricle The left ventricle is mildly dilated. There is normal left ventricular wall thickness. Left ventricular systolic function is severely reduced. Left Ventricular Function is estimated to be 25-30%. There is akinesis of the mid inferiorlateral wall. There is hypokinesis of the anterolateral wall. There is hypokenisis of the inferior wall. There are regional wall motion abnormalities as specified. Right Ventricle The right ventricle is moderately dilated. There is a AICD lead in the right ventricle. Atria The left atrium is mildly dilated. The right atrium is moderately dilated. Great Vessels The aortic root is normal size. Pericardium/Pleural There is no pericardial effusion. There is no pleural effusion. Mitral Valve There is moderate mitral regurgitation. Aortic Valve Mild aortic regurgitation. Tricuspid Valve There is moderate to severe tricuspid regurgitation. Pulmonic Valve Mild pulmonic valvular regurgitation. MMode/2D Measurements & Calculations RVDd: 5.1 cm LVIDd: 6.1 cm FS: 12.0 % IVSd: 1.1 cm LVIDs: 5.4 cm EDV(Teich): 190.2 ml LVPWd: 0.85 cm ESV(Teich): 141.7 ml EF(Teich): 25.5 % Ao root diam: 3.3 cm LVOT diam: 2.0 cm RVIDd/LVIDd_phl: 0.83 Ao root area: 8.5 cm2 LVOT area: 3.3 cm2 LA dimension: 5.8 cm Doppler Measurements & Calculations MV E max ebenezer: 86.5 cm/sec MV V2 max: 108.7 cm/sec MV dec time: 0.33 sec MV max P.7 mmHg MV V2 mean: 64.2 cm/sec MV mean P.0 mmHg MV V2 VTI: 27.0 cm MVA(VTI): 2.1 cm2 Ao V2 max: 149.4 cm/sec LV V1 max P.5 mmHg SV(LVOT): 56.0 ml Ao max P.9 mmHg LV V1 mean P.9 mmHg Ao V2 mean: 114.5 cm/sec LV V1 max: 94.0 cm/sec Ao mean P.6 mmHg LV V1 mean: 64.9 cm/sec Ao V2 VTI: 28.4 cm LV V1 VTI: 17.1 cm PRAKASH(I,D): 2.0 cm2 PRAKASH(V,D): 2.1 cm2 PA V2 max: 46.8 cm/sec TR max ebenezer: 150.0 cm/sec RAP systole: 10.0 mmHg PA max P.88 mmHg TR max P.0 mmHg RVSP(TR): 19.0 mmHg AV VR_phl: 0.62 PRAKASH(VTI)/BSA_phl: 0.94 Ordering Physician: Tony Jansen Referring Physician: Flip Hamm Performed By: Doris Faust RCS Echo Complete [id number] Reviewed date:04/02/2025 10:26:52 AM Interpretation: Performing Lab: Notes/Report: [id number] Reason For Referral No Information Medications Medication [...] for 7 days; Duration: 7 days Active [place] 3 1000 MG Capsule 1/2 capsule Oral [...] Administration Date Status Comme nts Afluria Quadrivalent Influenza Vaccine 3 years+ IM Intramuscular 05/04/2020 Administered COVID-19 Vaccine (Moderna) Dose #1 Unknown 08/30/2020 Administered COVID-19 Vaccine (Moderna) Dose #2 Unknown 09/28/2020 Administered COVID-19 Vaccine (Moderna) Dose #3 Unknown 05/23/2021 Administered Flu vaccine no Preserv 3 and [...] Problem Status W/U Status Risk Notes Problem Mixed hyperlipidemia (763258405) Mixed hyperlipidemia (272.2) 2006 Problem resolved confirmed [id number]- Problem Gout (69317539) Gout, unspecifie d (274.9) 2017 Problem resolved confirmed [id number]- Problem Hypocalcemia (5065377) Hypocalcemia (275.41) 2002 Problem resolved confirmed [id number]- Problem Anemia (154779794) Unspecified a nemia (285.9) 2018 Problem resolved confirmed [id number]- Problem Acute non-suppurativ e otitis media - serous (928886134) Acute serous otitis media (381.01) 2011 Problem resolved confirmed [id number]- Problem Atrial fibrillation (16785369) Atrial fibrillation (427.31) 2014 Active confirmed [id number]- Problem Congestive heart failure (27151735) Congestive heart failure, unspecified (428.0) 2018 Problem resolved confirmed [id number]- Problem Actinic keratosis (304209866) Actinic keratosis (702.0) 2005 Problem resolved confirmed [id number]- Problem Pressure ulcer of buttock (476089386) Pressure ulcer, buttock (707.05) 2017 Problem resolved confirmed [id number]- Problem Shortness of breath (106327123) Shortness of breath (786.05) 2011 Problem resolved confirmed [id number]- Problem Basal cell carcinoma of face (255427324) Basal cell carcinoma of skin of other and unspecified parts of face (173.31) 2014 Problem resolved confirmed [id number]- Problem Hypocalcemia (4426831) Hypocalcemia (E83.51) Active confirmed Problem Chronic systolic heart failure (029085612) Chronic systolic (congestive) heart failure (I50.22) Active confirmed Problem Acute on chronic combined systolic and diastolic heart failure (762600873594676) Acute on chronic combined systolic (congestive) and diastolic (congestive) heart failure (I50.43) Active confirmed Problem Lower urinary tract symptoms due to benign prostatic hypertrophy (31290839678316) Benign prostatic hyperplasia with lower urinary tract symptoms (N40.1) Active confirmed Problem Essential hypertension (80258219) Essential hypertension (I10) Active confirmed Problem Iron deficiency anemia (16149189) Iron deficiency anemia, unspecified iron deficiency anemia type (D50.9) Active confirmed Problem Screening for malignant neoplasm of prostate (432994256) Screening for prostate cancer (V76.44) 2007 Problem resolved confirmed [id number]- Problem Bradycardia (82200078) Bradycardia (R00.1) Active confirmed Problem Congestive heart failure (68542694) CHF (congestive heart failure) (I50.9) Active confirmed Problem Anemia (746223951) Anemia, unspe cified (285.9) 2017 Problem resolved confirmed [id number]- Problem Rash (508909349) Rash (782.1) 2007 Problem resolved confirmed [id number]- Problem Long-term current us e of drug therapy (960439415) Antiplatelet or antithrombotic long-term use (Z79.02) Active confirmed Problem Dizziness (653022505) Dizziness (780.4) 0 2010 Problem resolved confirmed [id number]- Problem Hypothyroidism (09392562) Hypothyroidism (E03.9) Active confirmed Problem Atherosclerotic hear t disease of [place] coronary artery without angina pectoris (154141471812823) Arteriosclerosis of coronary artery (I25.10) Active confirmed Problem Hypercholesterolemia (59894999) Hypercholesterolemia (E78.00) Active confirmed Problem Hypertension (15466256) Hypertension (I10) Active confirmed Problem Iron deficiency anemia (00633467) Iron deficiency anemia, unspecified (280.9) 2018 Problem resolved confirmed [id number]- Problem Heart failure (62436026) Chronic congestive heart failure, unspecified heart failure type (I50.9) Active confirmed Problem Vaccine-other combinations (V06.8) 2006 Problem resolved confirmed [id number]- Problem Dry skin (97381795) Dry skin (701.8) 02/23 Problem resolved confirmed [id number]- Problem Generalized pain (62581152) Generalized pain (780.99) 2016 Problem resolved confirmed [id number]- Problem History of thyroidectomy (265594872) History of thyroidectomy (V15.2) 2003 Problem resolved confirmed [id number]- Problem Hypercholesterolemia (05833622) Hypercholesterolemia (272.0) 2009 Active confirmed [id number]- Problem Hypotension (74912243) Hypotension, other (458.8) 2017 Problem resolved confirmed [id number]- Problem Laceration on th e finger(s) (883.0) 2014 Problem resolved confirmed [id number]-[id number]- Problem Shortness of breath (197988503) Shortness of breath (786.09) 2016 Problem resolved confirmed [id number]-[id number]- Problem Allergic rhinitis caused by pollen (77845529) Allergies (477.0) 2009 Problem resolved confirmed [id number]-[id number]- Problem Mitral and aortic stenosis (295755742) Aortic stenosis (396.0) 2014 Problem resolved confirmed [id number]-[id number]- Problem Inflamed seborrheic keratosis (454454951) Atypical seborrheic keratosis (702.11) 2003 Problem resolved confirmed [id number]-[id number]- Problem Disorder of hematopoietic system (87007267) Other abnormal findings on blood examination (790.99) 2016 Problem resolved confirmed [id number]-[id number]- Problem Disorder of hematopoietic system (56139859) Other abnormal laboratory result on blood (790.99) 2005 Problem resolved confirmed [id number]-[id number]- Problem Sore throat (346385654) Sore Throat (462) 2007 Problem resolved confirmed [id number]-[id number]- Problem Congestive heart failure (14202287) Congestive heart failure (428.0) 2015 Active confirmed [id number]- Problem Drug reaction (177943327) Drug reaction (995.2) 2005 Problem resolved confirmed Ramez-[id number]- Problem 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) Elevated homocysteine level (270.4) 2004 Problem resolved confirmed Ramez-[id number]- Problem Generalized abdomina l pain (954448103) Generalized abdominal pain (789.07) 2006 Problem resolved confirmed [id number]-[id number]- Problem Lab: Used to mat ch unlinked laboratory orders (V92) 2014 Problem resolved confirmed Ramez-[id number]- Problem Ear ache (400249026) Ear ache (388.71) 2011 Problem resolved confirmed Ramez-[id number] [id number]- Problem Mixed hyperlipidemia (613551994) Hypercholesterolemia with hypertriglyceridemia (272.2) 2005 Problem resolved confirmed [id number]-[id number]- Problem Hyponatremia (46544650) Hyponatremia (276.1) 2016 Problem resolved confirmed [id number]-[id number]- Problem Infected abrasio n or friction burn of hip, thigh, leg, and ankle (916.1) 2004 Problem resolved confirmed Ramez-[id number]- Problem Influenza (8970938) Influenza (487.8) 2005 Problem resolved confirmed Ramez-[id number] [id number]- Problem Influenza immunization (56178565) Influenza immunization (V04.81) 2018 Problem resolved confirmed Ramez-[id number] [id number]- Problem Pneumonia and influenza (715192446) Influenza, with pneumonia (487.0) 2016 Problem resolved confirmed Ramez-[id number] [id number]- Problem Screening for malignant neoplasm of colon (780416805) Screening for colorectal cancer (V76.49) 2013 Problem resolved confirmed Ramez-[id number]- Problem Microalbuminuria (350693192) Microalbuminuria (791.0) 2016 Problem resolved confirmed Ramez-[id number]- Problem Stiff neck (252149810) stiff neck (781.6) 2016 Problem resolved confirmed Ramez-[id number] [id number]- Problem Needs influenza immunization (067534949) Vaccination against other viral diseases, Influenza (V04.81) 2007 Problem resolved confirmed Ramez-[id number]- Problem Electrocardiogram abnormal (550580549) Abnormal EKG (794.31) 2011 Problem resolved confirmed Ramez-[id number] [id number]- Problem Coronary artery disease (84680094) CAD (414.01) 2008 Problem resolved confirmed Ramez-[id number] [id number]- Problem Coronary artery disease (33893246) Coronary artery disease (414.01) 2004 Problem resolved confirmed Ramez-[id number] [id number]- Problem 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 Active confirmed Ramez-[id number]- Problem Polycythemia vera (429085574) Polycythemia vera (238.4) 2012 Problem resolved confirmed Ramez-[id number] [id number]- Problem Gallbladder calculus (997494572) Cholelithiasis, without mention of obstruction (574.20) 2006 Problem resolved confirmed Ramez-[id number] [id number]- Problem Mixed hyperlipidemia (161844783) Combined hyperlipidemia (272.4) 2006 Problem resolved confirmed Ramez-[id number] [id number]- Problem Thyroid function tests abnormal (469689251) Abnormal thyroid findings (794.5) 2003 Problem resolved confirmed Ramez-[id number]- Problem Calculus of bile rita t with acute cholecystitis without obstruction (62895034) Acute choledocholithiasis (574.30) 2006 Problem resolved confirmed Ramez-[id number]- Problem Coronary arteriosclerosis (disorder) (60944658) ASHD (414.01) 2005 Problem resolved confirmed Armez-[id number]- Problem Candidal intertrigo (119134407) Candidal intertrigo (112.3) 2008 Problem resolved confirmed Ramez-[id number] [id number]- Problem Gallstones (397295127) Gallstones (574.20) 2006 Problem resolved confirmed Ramez-[id number] [id number]- Problem 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 Problem resolved confirmed Ramez-[id number] [id number]- Problem Multiple joint pain (70647383) Joint pain, multiple sites (719.49) 2005 Problem resolved confirmed Ramez-[id number] [id number]- Problem Acquired hypothyroidism (321128745) Acquired hypothyroidism (244.8) 2009 Problem resolved confirmed Ramez-98 [id number]- Problem Disorder of lipid metabolism (369698870) Low HDL level (272.9) 2006 Problem resolved confirmed Ramez-98 [id number]- Problem Swollen lymph nodes (98542897) Swollen lymph nodes (785.6) 2018 Problem resolved confirmed Ramez-98 [id number]- Problem 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 Ramez-98 [id number]- Problem Nausea and vomiting (65892374) Nausea and vomiting (787.01) 2017 Problem resolved confirmed Ramez-98 [id number]- Problem Localized, primary osteoarthritis of the ankle and/or foot (542656421) 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 Problem resolved confirmed Ramez-[id number] [id number]- Problem Osteoporosis (05470740) Osteoporosis (733.09) 2003 Problem resolved confirmed Ramez-98 [id number]- Problem Dry skin (76998934) Dry skin (701.1) 12/23 Problem resolved confirmed Ramez-98 [id number]- Problem Essential hypertension (42186909) Essential hypertension (401.1) 2004 Problem resolved confirmed Ramez-98 [id number]- Problem Impacted cerumen (83837085) External cerumen impaction (380.4) 2016 Problem resolved confirmed Ramez-98 [id number]- Problem Hypertension (40246313) HTN (401.1) 2004 Problem resolved confirmed Ramez-98 [id number]- Problem Mitral valve insufficiency (44343169) Mitral valve insufficiency (424.0) 2014 Problem resolved confirmed Ramez-98 [id number]- Problem Syncope (216147878) Syncope (780.2) 02/28 Problem resolved confirmed Ramez-98 [id number]- Problem Automatic implantabl e cardiac defibrillator in situ (979736176) AICD (automatic cardioverter/defibri llator) present (Z95.810) Active confirmed Problem Electrocardiogram abnormal (992266542) Prolonged Q-T interval (794.31) 2014 Problem resolved confirmed Ramez-[id number]- Problem History of placement of stent for coronary artery disease (situation) (456631519) Status post coronary artery stent placement (Z95.5) Active confirmed Plan Of Treatment No Information Insurance Providers Payer Name Payer Address Payer Phone Subscriber Number Group Number Insured Name Patient Relationship to Insured Coverage Start Date Coverage End Date [facility] Medicare Advantage PPO [address] [address] [place] [address] [id number] Josafat Saavedra Self - patient is the insured [place] [address] [address] [place] [address] [id number] Josafat Saavedra Self - patient is the insured [facility] Commercial [address] [address] [place] [address] [id number] Josafat Saavedra Self - patient is the insured Medical (General) History Medical History History ICD Code Hypertension Hypercholesterolemia CHF Aortic stenosis Atrial fibrillation Pacemaker; Medtronic Viva Quad Hypothyroidism Osteoarthritis Surgical History Surgery Date(Month/Year) Pacemaker implantation; Medtronic Viva Q uad 01/06/2018 Cataract removal; bilateral Coronary Artery Bypass Graft Hospitalization History Reason Date(Month/Year) UTI, COVID, received blood transfusion 0 01/2021 GI bleed 10/2020 bacteria in blood 03/2020 Surgeries
--- OUTSIDE RECORDS SUMMARY | 2025-04-08 15:43 | XMS_ITS | Encounter Summary ---
Author Organization [facility] Address [address] [place] [address] Care Team Providers Care Chemical Research Technician Name Role Phone Immanuel Bautista MD, Clive Fuller Primary Care Provider Encounter Details Date Type Department Care Team (Latest Contact Info) Description 07/14/2003 Outpatient Historical [facility] Cardiology- [place] [address] [place] [address] PREMATURE BEATS NEC (Primary Dx); HYPERTENSION NOS; CORON ATHEROSCL [place] CORON VESSEL; Pure hypercholesterolem Social History Tobacco Use Types Packs/Day Years Used Date Smoking Tobacco: Never Assessed Sex and Gender Information Value Date Recorded Sex Assigned at Not on file Legal Sex Male 2:37 AM EMTS Gender Identity Not on file Sexual Orientation Not on file documented as of this encounter Plan of Treatment Not on file documented as of this encounter Visit Diagnoses Diagnosis Other premature beats- Primary Unspecified essential hypertension Coronary atherosclerosis of [place] coronary artery Pure hypercholesterolem Pure hypercholesterolemia documented in this encounter Care Teams Chemical Research Technician Relationship Specialty Start Date End Date Clive Gambino Jr., MD [address] [place] [address] PCP - General 08/19/07 documented as of this encounter
--- OUTSIDE RECORDS SUMMARY | 2025-04-08 15:43 | XMS_ITS | Encounter Summary ---
Author Organization [facility] Address [address] [place] [address] Care Team Providers Care Washer Meat Name Role Phone Immanuel Bautista MD, Clive Fuller Primary Care Provider Encounter Details Date Type Department Care Team (Latest Contact Info) Description 11/11/2002 Outpatient Historical [facility] Endocrinology-Saavedra Thomas [place] [address] [place] [address] NONTOX MULTINODUL GOITER (Primary Dx) Social History Tobacco Use Types Packs/Day Years Used Date Smoking Tobacco: Never Assessed Sex and Gender Information Value Date Recorded Sex Assigned at Not on file 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
--- OUTSIDE RECORDS SUMMARY | 2025-04-08 15:43 | XMS_ITS | Encounter Summary ---
Author Organization 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
--- OUTSIDE RECORDS SUMMARY | 2025-04-08 15:43 | XMS_ITS | Encounter Summary ---
Author Organization [facility] Address [address] [place] [address] Care Team Providers Care Prospecting Driller Name Role Phone Immanuel Bautista MD, Clive Fuller Primary Care Provider Encounter Details Date Type Department Care Team (Latest Contact Info) Description 07/23/2001 Outpatient Historical [facility] Nuclear Med Services-Quentin Carrillonn [place] [address] [place] [address] GOITER NOS (Primary Dx) Social History Tobacco Use Types Packs/Day Years Used Date Smoking Tobacco: Never Assessed Sex and Gender Information Value Date Recorded Sex Assigned at Not on file 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
--- OUTSIDE RECORDS SUMMARY | 2025-04-08 15:43 | XMS_ITS | Encounter Summary ---
Author Organization [facility] Address [address] [place] [address] Care Team Providers Care Fish Trapper Name Role Phone Immanuel Bautista MD, Clive Fuller Primary Care Provider Encounter Details Date Type Department Care Team (Latest Contact Info) Description 08/16/2003 Outpatient Historical [facility] Cardiology- [place] [address] [place] [address] HYPERTENSION NOS (Primary Dx); CORON ATHEROSCL [place] CORON VESSEL; Pure hypercholesterolem; PRECORDIAL PAIN Social History Tobacco Use Types Packs/Day Years Used Date Smoking Tobacco: Never Assessed Sex and Gender Information Value Date Recorded Sex Assigned at Not on file 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
--- OUTSIDE RECORDS SUMMARY | 2025-04-08 15:43 | XMS_ITS | Encounter Summary ---
Author Organization [facility] Address [address] [place] [address] Care Team Providers Care Helicopter Officer Name Role Phone Immanuel Bautista MD, Clive Fuller Primary Care Provider Encounter Details Date Type Department Care Team (Latest Contact Info) Description 11/11/2002 Outpatient Historical [facility] Imaging Services-Quetnin Leonard [place] [address] [place] [address] Elise Jama MD [address] [place] [address] NONTOX MULTINODUL GOITER (Primary Dx) Social History Tobacco Use Types Packs/Day Years Used Date Smoking Tobacco: Never Assessed Sex and Gender Information Value Date Recorded Sex Assigned at Not on file 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
--- OUTSIDE RECORDS SUMMARY | 2025-04-08 15:43 | XMS_ITS | Encounter Summary ---
Author Organization 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
--- OUTSIDE RECORDS SUMMARY | 2025-04-08 15:43 | XMS_ITS | Encounter Summary ---
Author Organization [facility] Address [address] [place] [address] Care Team Providers Care Stage Director Name Role Phone Immanuel Bautista MD, Clive Fuller Primary Care Provider Encounter Details Date Type Department Care Team (Latest Contact Info) Description 03/27/2002 Outpatient Historical [facility] SCREENING-ENDOC/NUT/ MET/IMMUN OTHER (Primary Dx); SCREENING-THYROID DISORDER; SCREENING MAL NEOP-PROSTATE Social History Tobacco Use Types Packs/Day Years Used Date Smoking Tobacco: Never Assessed Sex and Gender Information Value Date Recorded Sex Assigned at Not on file 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
--- OUTSIDE RECORDS SUMMARY | 2025-04-08 15:43 | XMS_ITS | Encounter Summary ---
Author Organization [facility] Address [address] [place] [address] Care Team Providers Care Preschool Assistant Teacher Name Role Phone Immanuel Bautista MD, Clive Fuller Primary Care Provider Encounter Details Date Type Department Care Team (Latest Contact Info) Description 04/26/1999 Outpatient Historical [facility] Routine medical exam (Primary Dx); Unspecified essential hypertension; Need for prophylactic vaccination against Streptococcus pneumoniae (pneumococcus); Hyperplasia of prostate Social History Tobacco Use Types Packs/Day Years Used Date Smoking Tobacco: Never Assessed Sex and Gender Information Value Date Recorded Sex Assigned at Not on file 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
--- OUTSIDE RECORDS SUMMARY | 2025-04-08 15:43 | XMS_ITS | Encounter Summary ---
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
--- OUTSIDE RECORDS SUMMARY | 2025-04-08 15:43 | XMS_ITS | Encounter Summary ---
Author Organization [facility] Address [address] [place] [address] Care Team Providers Care Corporate Meeting Planner Name Role Phone Immanuel Bautista MD, Clive Fuller Primary Care Provider Encounter Details Date Type Department Care Team (Latest Contact Info) Description 09/06/1999 Outpatient Historical [facility] Skin sensation disturb (Primary Dx); Allergic rhinitis, cause unspecified; Unspecified hypothyroidism Social History Tobacco Use Types Packs/Day Years Used Date Smoking Tobacco: Never Assessed Sex and Gender Information Value Date Recorded Sex Assigned at Not on file 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
--- OUTSIDE RECORDS SUMMARY | 2025-04-08 15:43 | XMS_ITS | Encounter Summary ---
Author Organization [facility] Address [address] [place] [address] Care Team Providers Care System Developer Associate Manager Name Role Phone Immanuel Bautista MD, Clive Fuller Primary Care Provider Encounter Details Date Type Department Care Team (Latest Contact Info) Description 04/26/2003 Outpatient Historical 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
--- OUTSIDE RECORDS SUMMARY | 2025-04-08 15:43 | XMS_ITS | Encounter Summary ---
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
--- OUTSIDE RECORDS SUMMARY | 2025-04-08 15:43 | XMS_ITS | Encounter Summary ---
Author Organization [facility] Address [address] [place] [address] Care Team Providers Care Underwriting Assistant Name Role Phone Immanuel Bautista MD, Clive Fuller Primary Care Provider Encounter Details Date Type Department Care Team (Latest Contact Info) Description 04/24/2002 Outpatient Historical [facility] [place] [address] [place] [address] NONTOX MULTINODUL GOITER (Primary Dx) Social History Tobacco Use Types Packs/Day Years Used Date Smoking Tobacco: Never Assessed Sex and Gender Information Value Date Recorded Sex Assigned at Not on file 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
--- OUTSIDE RECORDS SUMMARY | 2025-04-08 15:43 | XMS_ITS | Encounter Summary ---
Author Organization [facility] Address [address] [place] [address] Care Team Providers Care Punch Machine Hand Name Role Phone Immanuel Bautista MD, Clive Fuller Primary Care Provider Encounter Details Date Type Department Care Team (Latest Contact Info) Description 10/20/1999 Outpatient Historical [facility] Unspecified essential hypertension (Primary Dx); Inhibited sex excitement Social History Tobacco Use Types Packs/Day Years Used Date Smoking Tobacco: Never Assessed Sex and Gender Information Value Date Recorded Sex Assigned at Not on file 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
--- OUTSIDE RECORDS SUMMARY | 2025-04-08 15:43 | XMS_ITS | Encounter Summary ---
Author Organization [facility] Address [address] [place] [address] Care Team Providers Care Database Management System Specialist Name Role Phone Immanuel Bautista MD, Clive Fuller Primary Care Provider Encounter Details Date Type Department Care Team (Latest Contact Info) Description 04/07/2003 Outpatient Historical [facility] Routine medical exam (Primary Dx); SCREENING MAL NEOP-COLON; SCREENING FOR COND NEC; Vaccine for influenza Social History Tobacco Use Types Packs/Day Years Used Date Smoking Tobacco: Never Assessed Sex and Gender Information Value Date Recorded Sex Assigned at Not on file Legal Sex Male 2:37 AM SPARERIBS TRIMMER Gender Identity Not on file Sexual Orientation [...] influenza documented in this encounter Care Teams Database Management System Specialist Relationship Specialty Start Date End Date Clive Gambino Jr., MD [address] [place] [phone] PCP - General 08/19/07 documented as of this encounter
--- OUTSIDE RECORDS SUMMARY | 2025-04-08 15:43 | XMS_ITS | Encounter Summary ---
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); Unspecified essential hypertension; Inhibited sex excitement Social History Tobacco Use Types Packs/Day Years Used Date Smoking Tobacco: Never Assessed Sex and Gender Information Value Date Recorded Sex Assigned at Not on file 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 Gender Identity Not on file Sexual Orientation Not on file documented as of this encounter Plan of Treatment Not on file documented as of this encounter Visit Diagnoses Diagnosis 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
--- OUTSIDE RECORDS SUMMARY | 2025-04-08 15:43 | XMS_ITS | Encounter Summary ---
Author Organization [facility] Address [address] [place] [address] Care Team Providers Care Shochet Name Role Phone Immanuel Bautista MD, Clive Fuller Primary Care Provider Encounter Details Date Type Department Care Team (Latest Contact Info) Description 04/20/2002 Outpatient Historical [facility] Imaging Services-Quentin Leonard [place] [address] [place] [address] NONTOX UNINODULAR GOITER (Primary Dx) Social History Tobacco Use Types Packs/Day Years Used Date Smoking Tobacco: Never Assessed Sex and Gender Information Value Date Recorded Sex Assigned at Not on file 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
--- OUTSIDE RECORDS SUMMARY | 2025-04-08 15:43 | XMS_ITS | Encounter Summary ---
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
--- OUTSIDE RECORDS SUMMARY | 2025-04-08 15:43 | XMS_ITS | Encounter Summary ---
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
--- OUTSIDE RECORDS SUMMARY | 2025-04-08 15:43 | XMS_ITS | Encounter Summary ---
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
--- OUTSIDE RECORDS SUMMARY | 2025-04-08 15:43 | XMS_ITS | Encounter Summary ---
Author Organization [facility] Address [address] [facility] Attn: [place] [address] Care Team Providers Care Outreach Nurse Name Role Phone Immanuel Bautista MD, Clive Fuller Primary Care Provider Encounter Details Date Type Department Care Team (Late st Contact Info) Description 11/03/2001 Outpatient Historical Elise Jama MD [address] [place] [address] Social History Tobacco Use Types Packs/Day Years Used Date Smoking Tobacco: Never Assessed Sex and Gender Information Value Date Recorded Sex Assigned at Not on file 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
--- OUTSIDE RECORDS SUMMARY | 2025-04-08 15:43 | XMS_ITS | Encounter Summary ---
Author Organization [facility] Address [address] [place] [address] Care Team Providers Care Teller Coordinator Name Role Phone Immanuel Bautista MD, Clive Fuller Primary Care Provider Encounter Details Date Type Department Care Team (Latest Contact Info) Description 11/27/2001 Outpatient Historical [facility] Toxic effect venom (Primary Dx); Venomous spider bite; HYPERTENSION NOS Social History Tobacco Use Types Packs/Day Years Used Date Smoking Tobacco: Never Assessed Sex and Gender Information Value Date Recorded Sex Assigned at Not on file 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
--- OUTSIDE RECORDS SUMMARY | 2025-04-08 15:43 | XMS_ITS | Encounter Summary ---
Author Organization [facility] Address [address] [place] [address] Care Team Providers Care Food Inspector Name Role Phone Immanuel Bautista MD, Clive Fuller Primary Care Provider Encounter Details Date Type Department Care Team (Latest Contact Info) Description 07/23/2001 Outpatient Historical [facility] [address] [place] [address] NONTOX MULTINODUL GOITER (Primary Dx) Social History Tobacco Use Types Packs/Day Years Used Date Smoking Tobacco: Never Assessed Sex and Gender Information Value Date Recorded Sex Assigned at Not on file 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
--- OUTSIDE RECORDS SUMMARY | 2025-04-08 15:43 | XMS_ITS | Encounter Summary ---
Author Organization [facility] Address [address] [place] [address] Care Team Providers Care Junior Oracle Dba Name Role Phone Immanuel Bautista MD, Clive Fuller Primary Care Provider Encounter Details Date Type Department Care Team (Latest Contact Info) Description 05/17/2003 Outpatient Historical [facility] Pre[facility] [address] [place] [address] [place] [address] Alejandro Alejo MD NO ADDRESS ON FILE PREOP EXAM OTHER SPECIFIED (Primary Dx) Social History Tobacco Use Types Packs/Day Years Used Date Smoking Tobacco: Never Assessed Sex and Gender Information Value Date Recorded Sex Assigned at Not on file Legal Sex Male 2:37 AM SPECIAL EDUCATION TUTOR Gender Identity Not on file Sexual Orientation Not on file documented as of this encounter Plan of Treatment Not on file documented as of this encounter Visit Diagnoses Diagnosis Other specified pre-operative examination- Primary documented in this encounter Care Teams Junior Oracle Dba Relationship Specialty Start Date End Date Clive Gambino Jr., MD [address] [place] [phone] PCP - General 08/19/07 documented as of this encounter
--- OUTSIDE RECORDS SUMMARY | 2025-04-08 15:43 | XMS_ITS | Encounter Summary ---
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
--- OUTSIDE RECORDS SUMMARY | 2025-04-08 15:43 | XMS_ITS | Encounter Summary ---
Author Organization [facility] Address [address] [place] [address] Care Team Providers Care Sales Contracts Analyst Name Role Phone Immanuel Bautista MD, Clive Fuller Primary Care Provider Encounter Details Date Type Department Care Team (Late st Contact Info) Description 04/24/1999 Outpatient Historical [facility] Social History Tobacco Use Types Packs/Day Years Used Date Smoking Tobacco: Never Assessed Sex and Gender Information Value Date Recorded Sex Assigned at Not on file Legal Sex Male 2:[address] Gender Identity Not on file Sexual Orientation Not on file documented as of this encounter Plan of Treatment Not on file documented as of this encounter Visit Diagnoses Not on filedocumented in this encounter Care Teams Sales Contracts Analyst Relationship Specialty Start Date End Date Clive Gambino Jr., MD [address] [place] [phone] PCP - General 08/19/07 documented as of this encounter
--- OUTSIDE RECORDS SUMMARY | 2025-04-08 15:43 | XMS_ITS | Encounter Summary ---
Author Organization [facility] Address [address] [place] [address] Care Team Providers Care Supervisor Toy Parts Former Name Role Phone Immanuel Bautista MD, Clive Fuller Primary Care Provider Encounter Details Date Type Department Care Team (Latest Contact Info) Description 08/17/2005 Outpatient Historical [facility] Cardiology- [place] [address] [place] [address] PRIM CARDIOMYOPATHY NEC (CMS/HCC) (Primary Dx); PALPITATIONS; PREMATURE BEATS NEC; HYPERTENSION NOS Social History Tobacco Use Types Packs/Day Years Used Date Smoking Tobacco: Never Assessed Sex and Gender Information Value Date Recorded Sex Assigned at Not on file 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
--- OUTSIDE RECORDS SUMMARY | 2025-04-08 15:43 | XMS_ITS | Encounter Summary ---
Author Organization 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
--- OUTSIDE RECORDS SUMMARY | 2025-04-08 15:43 | XMS_ITS | Encounter Summary ---
Author Organization [facility] Address [address] [place] [address] Care Team Providers Care Feedmobile Driver Name Role Phone Immanuel Bautista MD, Clive Fuller Primary Care Provider Encounter Details Date Type Department Care Team (Latest Contact Info) Description 06/09/2003 Outpatient Historical [facility] Gen Spec Surg [place] [address] [facility] [address] [place] [address] TOX MULTNOD GOIT NO BHAVESH (Primary Dx); SURGERY FOLLOWUP, UNSPEC Social History Tobacco Use Types Packs/Day Years Used Date Smoking Tobacco: Never Assessed Sex and Gender Information Value Date Recorded Sex Assigned at Not on file 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
--- OUTSIDE RECORDS SUMMARY | 2025-04-08 15:43 | XMS_ITS | Encounter Summary ---
Author Organization [facility] Address [address] [place] [address] Care Team Providers Care Contract Manager Name Role Phone Immanuel Bautista MD, Clive Fuller Primary Care Provider Encounter Details Date Type Department Care Team (Latest Contact Info) Description 05/04/1998 Outpatient Historical [facility] Routine medical exam (Primary Dx); Unspecified essential hypertension; Pure hypercholesterolem; Gout, unspecified Social History Tobacco Use Types Packs/Day Years Used Date Smoking Tobacco: Never Assessed Sex and Gender Information Value Date Recorded Sex Assigned at Not on file 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
--- OUTSIDE RECORDS SUMMARY | 2025-04-08 15:43 | XMS_ITS | Encounter Summary ---
Author Organization [facility] Address [address] [place] [address] Care Team Providers Care Switch House Operator Name Role Phone Immanuel Bautista MD, Clive Fuller Primary Care Provider Encounter Details Date Type Department Care Team (Latest Contact Info) Description 07/14/2003 Outpatient Historical [facility] Cardiovascular Services [address] [place] [address] [place] [address] Navdeep Montalvo MD [address] [address] [place] [address] CARDIAC DYSRHYTHMIAS NEC (Primary Dx) Social History Tobacco Use Types Packs/Day Years Used Date Smoking Tobacco: Never Assessed Sex and Gender Information Value Date Recorded Sex Assigned at Not on file 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
--- OUTSIDE RECORDS SUMMARY | 2025-04-08 15:43 | XMS_ITS | Encounter Summary ---
Author Organization [facility] Address [address] [place] [address] Care Team Providers Care Job Press Operator Name Role Phone Immanuel Bautista MD, Clive Fuller Primary Care Provider Encounter Details Date Type Department Care Team (Latest Contact Info) Description 07/21/2003 Outpatient Historical [facility] Spec Surg [place] [address] [facility] [address] [place] [address] TOX MULTNOD GOIT NO BHAVESH (Primary Dx); SURGERY FOLLOWUP, UNSPEC Social History Tobacco Use Types Packs/Day Years Used Date Smoking Tobacco: Never Assessed Sex and Gender Information Value Date Recorded Sex Assigned at Not on file Legal Sex Male 2:37 AM NON DESTRUCTIVE TESTING SUPERVISOR Gender Identity Not on file Sexual Orientation Not on file documented as of this encounter Plan of Treatment Not on file documented as of this encounter Visit Diagnoses Diagnosis 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
--- OUTSIDE RECORDS SUMMARY | 2025-04-08 15:43 | XMS_ITS | Encounter Summary ---
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
--- OUTSIDE RECORDS SUMMARY | 2025-04-08 15:43 | XMS_ITS | Encounter Summary ---
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
--- OUTSIDE RECORDS SUMMARY | 2025-04-08 15:43 | XMS_ITS | Encounter Summary ---
Author Organization [facility] Address [address] [facility] Attn: [place] [address] Care Team Providers Care Gas Or Water Meter Installer Name Role Phone Immanuel Bautista MD, Clive Fuller Primary Care Provider Encounter Details Date Type Department Care Team (Late st Contact Info) Description 11/28/2001 Outpatient Historical Clive Gambino Jr., MD [address] [place] [address] Social History Tobacco Use Types Packs/Day Years Used Date Smoking Tobacco: Never Assessed Sex and Gender Information Value Date Recorded Sex Assigned at Not on file 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
--- OUTSIDE RECORDS SUMMARY | 2025-04-08 15:44 | XMS_ITS | Encounter Summary ---
Author Organization [facility] Address [address] [place] [address] Care Team Providers Care Heat Treat Supervisor Name Role Phone Immanuel Bautista MD, Clive Fuller Primary Care Provider Encounter Details Date Type Department Care Team (Latest Contact Info) Description 02/09/2003 [facility] [place] [place] [address] German Catherine MD NO ADDRESS ON FILE PREOP EXAM OTHER SPECIFIED (Primary Dx) Social History Tobacco Use Types Packs/Day Years Used Date Smoking Tobacco: Never Assessed Sex and Gender Information Value Date Recorded Sex Assigned at Not on file Legal Sex Male 2:37 AM FREIGHT CHECKER Gender Identity Not on file Sexual Orientation Not on file documented as of this encounter Plan of Treatment Not on file documented as of this encounter Visit Diagnoses Diagnosis Other specified pre-operative examination- Primary documented in this encounter Care Teams Heat Treat Supervisor Relationship Specialty Start Date End Date Clive Gambino Jr., MD [address] [place] [phone] PCP - General 08/19/07 documented as of this encounter
--- OUTSIDE RECORDS SUMMARY | 2025-04-08 15:44 | XMS_ITS | Encounter Summary ---
Author Organization [facility] Address [address] [place] [address] Care Team Providers Care Rapid Extractor Operator Name Role Phone Immanuel Bautista MD, Clive Fuller Primary Care Provider Encounter Details Date Type Department Care Team (Late st Contact Info) Description 02/10/2003 Inpatient Historical [facility] German Catherine MD NO ADDRESS ON FILE CORON ATHEROSCL [place] CORON VESSEL (Primary Dx) Social History Tobacco Use Types Packs/Day Years Used Date Smoking Tobacco: Never Assessed Sex and Gender Information Value Date Recorded Sex Assigned at Not on file 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
--- OUTSIDE RECORDS SUMMARY | 2025-04-08 15:44 | XMS_ITS | Encounter Summary ---
Author Organization [facility] Address [address] [place] [address] Care Team Providers Care Email Campaign Manager Name Role Phone Immanuel Bautista MD, Clive Fuller Primary Care Provider Encounter Details Date Type Department Care Team (Latest Contact Info) Description 10/28/2000 Outpatient Historical [facility] Pure hypercholesterolem (Primary Dx); Unspecified essential hypertension; Unspecified hypothyroidism Social History Tobacco Use Types Packs/Day Years Used Date Smoking Tobacco: Never Assessed Sex and Gender Information Value Date Recorded Sex Assigned at Not on file 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
--- OUTSIDE RECORDS SUMMARY | 2025-04-08 15:44 | XMS_ITS | Encounter Summary ---
Author Organization [facility] Address [address] [place] [address] Care Team Providers Care Shopping Investigator Name Role Phone Immanuel Bautista MD, Clive Fuller Primary Care Provider Encounter Details Date Type Department Care Team (Latest Contact Info) Description 03/11/2003 Outpatient Historical [facility] Cardiology- [place] [address] [place] [address] German Catherine MD NO ADDRESS ON FILE CORON ATHEROSCL [place] CORON VESSEL (Primary Dx) Social History Tobacco Use Types Packs/Day Years Used Date Smoking Tobacco: Never Assessed Sex and Gender Information Value Date Recorded Sex Assigned at Not on file 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
--- OUTSIDE RECORDS SUMMARY | 2025-04-08 15:44 | XMS_ITS | Encounter Summary ---
Author Organization [facility] Address [address] [place] [address] Care Team Providers Care Manager Field Sales Name Role Phone Immanuel Bautista MD, Clive Fuller Primary Care Provider Encounter Details Date Type Department Care Team (Latest Contact Info) Description 02/01/2003 Outpatient Historical [facility] Cardiology- [place] [address] [place] [address] PRIM CARDIOMYOPATHY NEC (CMS/HCC) (Primary Dx); PREMATURE BEATS NEC; HYPERTENSION NOS; Pure hypercholesterolem Social History Tobacco Use Types Packs/Day Years Used Date Smoking Tobacco: Never Assessed Sex and Gender Information Value Date Recorded Sex Assigned at Not on file 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
--- OUTSIDE RECORDS SUMMARY | 2025-04-08 15:44 | XMS_ITS | Encounter Summary ---
Author Organization [facility] Address [address] [facility] Attn: [place] [address] Care Team Providers Care Vp Packaging Name Role Phone Immanuel Bautista MD, Clive Fuller Primary Care Provider Encounter Details Date Type Department Care Team (Late st Contact Info) Description 12/09/2000 Outpatient Historical Clive Gambino Jr., MD [address] [place] [address] Social History Tobacco Use Types Packs/Day Years Used Date Smoking Tobacco: Never Assessed Sex and Gender Information Value Date Recorded Sex Assigned at Not on file 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
--- OUTSIDE RECORDS SUMMARY | 2025-04-08 15:44 | XMS_ITS | Encounter Summary ---
Author Organization [facility] Address [address] [place] [address] Care Team Providers Care Liberal Arts And Humanities Chair Name Role Phone Immanuel Bautista MD, Clive Fuller Primary Care Provider Encounter Details Date Type Department Care Team (Latest Contact Info) Description 01/13/2003 Outpatient Historical [facility] Cardiology [facility] [address] [place] [address] Malignant hypertension (Primary Dx); Preop cardiovascular exam Social History Tobacco Use Types Packs/Day Years Used Date Smoking Tobacco: Never Assessed Sex and Gender Information Value Date Recorded Sex Assigned at Not on file 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
--- OUTSIDE RECORDS SUMMARY | 2025-04-08 15:44 | XMS_ITS | Encounter Summary ---
Author Organization [facility] Address [address] [place] [address] Care Team Providers Care Billing Specialist Name Role Phone Immanuel Bautista MD, Clive Fuller Primary Care Provider Encounter Details Date Type Department Care Team (Latest Contact Info) Description 01/27/2003 Outpatient Historical [facility] [address] [place] [address] Navdeep Montalvo MD [address] [address] [place] [address] ASCVD (Primary Dx) Social History Tobacco Use Types Packs/Day Years Used Date Smoking Tobacco: Never Assessed Sex and Gender Information Value Date Recorded Sex Assigned at Not on file 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
--- OUTSIDE RECORDS SUMMARY | 2025-04-08 15:44 | XMS_ITS | Encounter Summary ---
Author Organization [facility] Address [address] 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
--- OUTSIDE RECORDS SUMMARY | 2025-04-08 15:44 | XMS_ITS | Encounter Summary ---
Author Organization [facility] Address [address] [place] [address] Care Team Providers Care Electrical Maintenance Mechanic Name Role Phone Immanuel Bautista MD, Clive Fuller Primary Care Provider Encounter Details Date Type Department Care Team (Latest Contact Info) Description 02/03/2003 Outpatient Historical [facility] Cardiac Pricing Actuary [address] [place] [address] Tank Davis MD [address] [facility] [address] [place] [address] CORON ATHEROSCL [place] CORON VESSEL (Primary Dx) Social History Tobacco Use Types Packs/Day Years Used Date Smoking Tobacco: Never Assessed Sex and Gender Information Value Date Recorded Sex Assigned at Not on file 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
--- OUTSIDE RECORDS SUMMARY | 2025-04-08 15:44 | XMS_ITS | Encounter Summary ---
Author Organization [facility] Address [address] [place] [address] Care Team Providers Care Carburetor Rebuilder Name Role Phone Immanuel Bautista MD, Clive Fuller Primary Care Provider Encounter Details Date Type Department Care Team (Late st Contact Info) Description 02/08/2003 Outpatient Historical [facility] Cardiac Thoracic Vascular Surg [place] [address] [place] [address] Social History Tobacco Use Types Packs/Day Years Used Date Smoking Tobacco: Never Assessed Sex and Gender Information Value Date Recorded Sex Assigned at Not on file 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
--- OUTSIDE RECORDS SUMMARY | 2025-04-08 15:44 | XMS_ITS | Encounter Summary ---
Author Organization [facility] Address [address] [place] [address] Care Team Providers Care Mems Device Scientist Name Role Phone Immanuel Bautista MD, Clive Fuller Primary Care Provider Encounter Details Date Type Department Care Team (Latest Contact Info) Description 03/11/2003 Outpatient Historical [facility] Cardiac Thoracic Vascular Surg [place] [address] [place] [address] CORON ATHEROSCL [place] CORON VESSEL (Primary Dx) Social History Tobacco Use Types Packs/Day Years Used Date Smoking Tobacco: Never Assessed Sex and Gender Information Value Date Recorded Sex Assigned at Not on file 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
--- OUTSIDE RECORDS SUMMARY | 2025-04-08 15:44 | XMS_ITS | Encounter Summary ---
Author Organization [facility] Address [address] [place] [address] Care Team Providers Care Health Promotion Officer Name Role Phone Immanuel Bautista MD, Clive Fuller Primary Care Provider Encounter Details Date Type Department Care Team (Latest Contact Info) Description 03/15/[address] 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
[2025-04-08 16:00] VITALS: BP 90/64; PULSE 69; RESP 16; O2SAT 92
--- NOTE | 2025-04-08 16:14 | PC.NURSE ---
pts lacy irrigated with 500 mL sterile water. 500mL instilled, 1175mL returned.
[2025-04-08 16:19] LABS: Glucose Urine UA Negative (Normal); Nitrate Urine Negative (Negative); Specific Gravity, Urine 1.013 (1.005-1.030)
[2025-04-08 16:21] LABS: Add Urine Microscopic? YES
[2025-04-08 16:23] LABS: Anion Gap 19.6 (5-19); Blood Urea Nitrogen 44 mg/dL (8-23); Calcium 8.3 mg/dL (8.5-10.5); Carbon Dioxide 17 mmol/L (22-29); Chloride 105 mmol/L (98-107); Creatinine Clr Calc Pharmacy 32.8703; Glucose 109 mg/dL (65-115); Osmolality Calculated 296 mOsm/kg (285-295); Potassium 4.6 mmol/L (3.5-5.1); Sodium 137 mmol/L (136-145)
[2025-04-08 16:35] LABS: Hematocrit 32.6 % (37-53); Hemoglobin 10.10 g/dL (11.27-16.99); Mean Corpuscular HGB Conc 31.0 g/dL (30-55); Mean Corpuscular Hemoglobin 30.8 pg (27-33); Mean Corpuscular Volume 99.4 fl (82-101); Nucleated Red Blood Cells % 0 %; Platelet Count 145 10^3/cmm (157-399); Red Blood Count 3.28 10^6/uL (3.85-5.65); White Blood Count 10.29 10^3/uL (3.29-11.43)
--- NOTE | 2025-04-08 16:48 | PC.PHAR ---
Patient was recently prescribed Amiodarone 400mg and Plavix 75 mg. Patient's family members don't know if it was called in .[facility] don't have it . I did call to verify.
[2025-04-08 16:55] VITALS: BP 108/65; PULSE 69; RESP 14; O2SAT 93
[2025-04-08 17:34] VITALS: BP 119/67; PULSE 70; RESP 16; O2SAT 92
== END 2025-04-08 17:42 | disposition home or self-care (01) ==
PROVIDERS: Emergency Provider Family Medicine; PCP Internal Medicine
DX: T83.091A Other mechanical complication of indwelling urethral catheter, initial encounter (principal); R33.9 Retention of urine, unspecified; R31.9 Hematuria, unspecified; I48.19 Other persistent atrial fibrillation; Z79.02 Long term (current) use of antithrombotics/antiplatelets; Z95.1 Presence of aortocoronary bypass graft; E78.5 Hyperlipidemia, unspecified; I13.0 Hypertensive heart and chronic kidney disease with heart failure and stage 1 through stage 4 chronic kidney disease, or unspecified chronic kidney disease; N18.9 Chronic kidney disease, unspecified; I50.9 Heart failure, unspecified; X58.XXXA Exposure to other specified factors, initial encounter
CPT/HCPCS: 36415; 51798; 80048; 81001; 85025; 87086; 99283

== ENCOUNTER 2025-04-09 12:31 | Inpatient (IN) | payer MEDICARE, SELFPAY ==
[2025-04-09] VITALS (13 sets, daily range): BP systolic 94–127; BP diastolic 47–83; PULSE 69–111; RESP 17–24; TEMP 36.1–36.7; O2SAT 71–100; BMI 30.6
--- NOTE | 2025-04-09 12:33 | USCV_ITS ---
Tank Saavedra Age: 89 Gender: M : 1935 Exam Date: 04/09/2025 14:02 Ordering Phys: Cuca Perez MD Technologist: Burton Cannon Exam Location: [facility]_ Indication: arm swelling PROCEDURES: Venous duplex imaging was performed in only the left upper extremity. The following venous structures were evaluated: internal jugular vein, subclavian vein, axillary vein, and brachial veins. In addition, the basilic vein, cephalic vein, radial vein, and ulnar vein. Serial compression, augmentation maneuvers, and spectral Doppler flow evaluation were performed. FINDINGS: The veins of the left upper extremity are readily compressible with normal venous flow dynamics including spontaneous flow, respiratory phasic variation and augmentation. There appers to be a large complex area noted in the inner/upper lt arm. Unable to measure length accurately. Medial to left AC space there is another complex area that also has mobile material within it. Neither areas appear to have blood flow. CONCLUSIONS No left upper extremity DVT. Nonvascular complex soft tissues masses left upper extremity are most likely hematomas. Masses are difficult to meassure due to their large size. Dr. Phyllis Connors DO (Electronically Signed) Final Date: 09 April 2025 15:29 S
--- NOTE | 2025-04-09 12:34 | XR_ITS ---
WS: [id number] XR chest 1V portable [id number] REASON FOR EXAM: Shortness of breath FINDINGS: The chest is unchanged compared to 03/22/2025. Sternal sutures with previous aortocoronary bypass surgery. Cardiac device overlying the left chest with multiple trans left subclavian vein leads the right atrium and right ventricular apex. Endovascular aortic valve stent graft. Mild cardiomegaly with minimal central pulmonary venous congestion. No findings of pulmonary edema or other acute pulmonary parenchymal or pleural abnormality. XR/XR chest 1V portable [id number] IMPRESSION: Stable chest without acute abnormality.
--- OUTSIDE RECORDS SUMMARY | 2025-04-09 12:37 | XMS_ITS | Clinical Summary ---
Author Organization [facility] Address [address] [facility] Attn: [place] [address] Care Team Providers Care Velvet Steamer Name Role Phone Immanuel Bautista MD, Clive [...] on file Legal Sex Male 2:25 PM STEEPING PRESS OPERATOR Gender Identity Not on file Sexual [...] history exists Medical Devices Implanted Type Area Trolley Coach Driver Device Identifier Shelf Expiration Date Model / Serial / Lot Defibrillator- 01/06/2018 Implanted:Qty: 1 on 01/06/2018 by Julieta William MD Defibrillator 12/05/2018 / [id number] / Lv Lead-01/06/2018 Implanted:Qty: 1 on 01/06/2018 by Julieta William MD Lead 08/13/2019 / [id number] / Rv Lead-01/06/2018 Implanted:Qty: 1 on 01/06/2018 by Julieta William MD Lead 11/13/2019 / [id number] / Insurance Care Teams Velvet Steamer Relationship Specialty Start Date End Date Clive Gambino Jr., MD [facility] [place] [phone] PCP - General 08/19/07
--- NOTE | 2025-04-09 13:34 | W.ED.GENADLT ---
HPI - General Adult General: Chief complaint: General Medical Stated complaint: L arm and hand black swelling blood in uraine Time Seen by Provider: 04/09/25 13:10 History of Present Illness: 89-year-old man with a history of congestive heart failure, mild dysplastic syndrome, chronic anticoagulation, hyponatremia, BPH, hypothyroidism, hyperlipidemia, atrial fibrillation, sick sinus syndrome, hypertension, coronary artery disease, carotid stenosis, aortic stenosis, mitral regurgitation and pulmonary hypertension who presents to the emergency room from cardiology clinic with concerns for worsening swelling in the left arm. He has had a complicated recent history. He had most recently been admitted for refractory reticular tachycardia and AICD discharge. He also had hematuria and ultimately had to be transferred to [facility] for that. He has been off his Plavix. He was also seen in the emergency room yesterday for Wang catheter issues. Related Data Home Medications ?Medication ?Instructions ?Recorded ?Confirmed loratadine 10 mg tablet (Claritin) 10 mg PO BEDTIME@1900 09/12/20 04/08/25 ascorbic acid (vitamin C) 1,000 mg 1 g PO BID@0700,1900 01/17/21 04/08/25 tablet cholecalciferol (vitamin D3) 25 25 mcg PO DAILY 12/21/21 04/08/25 mcg (1,000 unit) capsule lutein 25 mg-zeaxanthin 5 mg 1 cap PO DAILY 12/26/21 04/08/25 capsule triamcinolone acetonide 55 mcg 2 spray intranasal DAILY PRN 04/08/23 04/08/25 nasal spray aerosol (Nasacort) allergies dorzolamide 22.3 mg-timolol 6.8 1 drp ophthalmic (eye) BID 05/06/24 04/08/25 mg/mL eye drops lycopene 10 mg capsule 15 mg PO DAILY@0700 10/28/24 04/08/25 furosemide 20 mg tablet 20 mg PO DAILY 03/17/25 04/08/25 omega-3 fatty acids 1,000 mg 1,000 mg PO DAILY 03/17/25 04/08/25 capsule mexiletine 150 mg capsule 150 mg PO BID 04/08/25 04/08/25 Previous Rx's ?Medication ?Instructions ?Recorded tamsulosin 0.4 mg capsule 0.4 mg PO BEDTIME@1900 #90 caps 02/20/22 atorvastatin 40 mg tablet 40 mg PO DAILY@1900 #90 tabs 03/01/22 levothyroxine 150 mcg tablet 150 mcg PO DAILY #90 tabs 03/05/22 (Euthyrox) methenamine hippurate 1 gram tablet See Rx Instructions .Route 09/05/22 .COMPLEX #60 tabs nitroglycerin 0.4 mg sublingual 0.4 mg sublingual Q5M PRN Chest 09/13/22 tablet (Nitrostat) Pain #30 tabs spironolactone 25 mg tablet 12.5 mg (1/2 x 25 mg) PO DAILY #90 05/29/24 tabs metoprolol succinate 25 mg 12.5 mg (1/2 x 25 mg) PO BID #45 03/16/25 tablet,extended release 24 hr tabs sacubitril 49 mg-valsartan 51 mg 0.5 tab PO BID #120 tabs 03/16/25 tablet (Entresto) amiodarone 400 mg tablet 400 mg PO DAILY #90 tabs 04/06/25 clopidogrel 75 mg tablet (Plavix) 75 mg PO DAILY #90 tabs 04/06/25 Allergies Allergy/AdvReac Type Severity Reaction Status Date / Time fenofibrate Allergy Unknown Unknown Verified 02/09/25 15:27 levofloxacin Allergy Unknown Unknown Verified 02/09/25 15:27 niacin Allergy Unknown Unknown Verified 02/09/25 15:27 Review of Systems Narrative: Constitutional symptoms: Negative except as documented in HPI. Skin symptoms: Negative except as documented in HPI. Eye symptoms: Negative except as documented in HPI. ENMT symptoms: Negative except as documented in HPI. Respiratory symptoms: Negative except as documented in HPI. Cardiovascular symptoms: Negative except as documented in HPI. Gastrointestinal symptoms: Negative except as documented in HPI. Genitourinary symptoms: Negative except as documented in HPI. Musculoskeletal symptoms: Negative except as documented in HPI. Neurologic symptoms: Negative except as documented in HPI. Psychiatric symptoms: Negative except as documented in HPI. Endocrine symptoms: Negative except as documented in HPI. PFS ED PFSH: Medical History (Updated 04/09/25 @ 15:03 by Cuca Perez MD) Cardiac resynchronization therapy defibrillator (REEL FILM INSPECTOR-D) in place CHF (congestive heart failure) Arrhythmia Urinary tract infection associated with indwelling urethral catheter, subsequent encounter History of myelodysplastic syndrome Chronic anticoagulation Clot retention of urine Hyponatremia Anemia Phimosis Urinary retention BPH (benign prostatic hyperplasia) Hypothyroidism Anticoagulation adequate with anticoagulant therapy Direct thrombin inhibitor Pradaxa Dyslipidemia Atrial fibrillation Patient has a history of recurrent GI bleed and spontaneous hematoma in the flank. So he was taken off the Pradaxa SSS (sick sinus syndrome) HTN (hypertension) ASHD (arteriosclerotic heart disease) Ischemic cardiomyopathy CKD (chronic kidney disease) Carotid stenosis, bilateral Aortic stenosis Mitral regurgitation Pulmonary HTN Surgical History H/O esophagogastroduodenoscopy (10/20/20) History of coronary artery stent placement Status post colonoscopy (10/20/20) diverticulosis, polyps S/P hernia repair S/P cataract extraction S/P CABG (coronary artery bypass graft) S/P ICD (internal cardiac defibrillator) procedure S/P TAVR (transcatheter aortic valve replacement) Family History Mother , at age 82 CAD (coronary artery disease) Father , at age 69 Stroke Social History Smoking and tobacco/nicotine status: never used tobacco/nicotine Alcohol intake: never Substance/Drug Use: never Adopted: No Caregiver/support person: No Lives independently: No Household members: spouse Marital status: Current occupational status: retired Physical Exam Narrative: EXAM NARRATIVE: General: Alert, no acute distress. Skin: Warm, dry. Head: Normocephalic, atraumatic. Neck: Supple, trachea midline. Eye: Extraocular movements are intact. Ears, nose, mouth and throat: mucosa moist. Cardiovascular: Regular, Normal peripheral perfusion. Anasarca but the left arm is exceptionally swollen. Is nonpainful. He has purpling of his hand and fingers on the left. Respiratory: Lungs are clear to auscultation, respirations are non-labored, breath sounds are equal, Symmetrical chest wall expansion. Gastrointestinal: Soft, Nontender, Non distended Musculoskeletal: Normal ROM, no deformity. Neurological: Alert and oriented, No focal neurological deficit observed. Psychiatric: Cooperative, appropriate mood & affect. Course Vital Signs: Vital signs: Vital Signs Temperature 97.0 F L 04/09/25 12:36 Pulse Rate 70 04/09/25 12:36 Respiratory Rate 18 04/09/25 12:36 Blood Pressure 103/73 04/09/25 12:36 Pulse Oximetry 100 04/09/25 12:36 Oxygen Delivery Me thod Room Air 04/09/25 12:36 MDM - General Adult Medical Decision Making Medical decision making: Differential diagnosis including but not limited to and based on the above HPI, review of systems and physical exam: for patient with edema: Congestive heart failure. Kidney failure. DVT / Pulmonary embolism. Protein malnutrition. Cirrhosis. Orders placed to evaluate differential diagnosis based on the above differential, HPI and physical exam Chest x-ray: No acute process. AICD and pacemaker in place. Stable cardiomegaly. Sternotomy wires. This was reviewed and interpreted by myself the emergency room physician. I also reviewed the radiology report. Lab Review: Laboratory results were reviewed and interpreted by myself the emergency room physician. No leukocytosis. Hemoglobin 11. BUN and creatinine at 45 and 1.9. This is around his baseline. I reviewed the patient's medical record. 89-year-old man with a history of congestive heart failure, mild dysplastic syndrome, chronic anticoagulation, hyponatremia, BPH, hypothyroidism, hyperlipidemia, atrial fibrillation, sick sinus syndrome, hypertension, coronary artery disease, carotid stenosis, aortic stenosis, mitral regurgitation and pulmonary hypertension. He has had a complicated recent history. He had most recently been admitted for refractory reticular tachycardia and AICD discharge. He also had hematuria and ultimately had to be transferred to [facility] for that. He has been off his Plavix. Reexamination: Patient remained stable. No increased work of breathing. No altered mental status. No focal motor deficits. No oxygen requirement. Consultation: I spoke with Dr. Forman the patient's tongue and groove machine feeder prior to transfer to the emergency room. He recommends ultrasound of the upper extremity and admission for diuresis. Consultation: I spoke with Dr. Courtney who is on-call for the hospitalist service who agrees to admission. Assessment and plan: Edema of the left upper extremity with bruising Anasarca Congestive heart failure -I discussed the patient with the hospitalist on-call who is admitting the patient. - Discussed findings and plan with patient. Answered any questions. - All laboratory values were reviewed and interpreted personally by myself, the ER physician - All imaging was reviewed and interpreted personally by myself, the ER physician. - Evaluation and treatment of this problem were appropriate in the emergency setting Lab Data 04/09/25 13:35 04/09/25 13:35 Radiology Impressions Chest X-Ray 04/09/25 12:34 IMPRESSION: Stable chest without acute abnormality. Laboratory Results WBC 8.53 10^3/uL (3.29-11.43) 04/09/25 13:35 RBC 3.50 10^6/uL (3.85-5.65) L 04/09/25 13:35 Hgb 11.10 g/dL (11.27-16.99) L 04/09/25 13:35 Hct 34.1 % (37-53) L 04/09/25 13:35 MCV 97.4 fl (82-101) 04/09/25 13:35 MCH 31.7 pg (27-33) 04/09/25 13:35 MCHC 32.6 g/dL (30-55) D 04/09/25 13:35 RDW 19.1 % (12.1-15.1) H 04/09/25 13:35 Plt Count 146 10^3/cmm (157-399) L 04/09/25 13:35 MPV 12.5 fL (7.4-10.4) H 04/09/25 13:35 Neut % (Auto) 73.5 % 04/09/25 13:35 Lymph % (Auto) 13.2 % 04/09/25 13:35 [place] % (Auto) 9.4 % 04/09/25 13:35 Eos % (Auto) 2.7 % 04/09/25 13:35 Baso % (Auto) 0.7 % 04/09/25 13:35 Neut # (Auto) 6.27 10^3/uL (1.8-7.7) 04/09/25 13:35 Lymph # (Auto) 1.1 10^3/uL (0.8-4.8) 04/09/25 13:35 [place] # (Auto) 0.8 10^3/uL (0.2-0.9) 04/09/25 13:35 Eos # (Auto) 0.2 10^3/uL (0.0-0.8) 04/09/25 13:35 Baso # (Auto) 0.1 10^3/uL (0.0-0.1) 04/09/25 13:35 Nucleated RBC % (auto) 0 % 04/09/25 13:35 Nucleated RBCs # 0.0 /100WBC 04/09/25 13:35 Sodium 134 mmol/L (136-145) L 04/09/25 13:35 Potassium 4.6 mmol/L (3.5-5.1) 04/09/25 13:35 Chloride 102 mmol/L (98-107) 04/09/25 13:35 Carbon Dioxide 17 mmol/L (22-29) L 04/09/25 13:35 Anion Gap 19.6 (5-19) H 04/09/25 13:35 BUN 45 mg/dL (8-23) H 04/09/25 13:35 Creatinine 1.9 mg/dL (0.7-1.2) H 04/09/25 13:35 GFR Calculation Not Reportable 04/09/25 13:35 Glucose 93 mg/dL (65-115) 04/09/25 13:35 Calculated Osmolality 289 mOsm/kg (285-295) 04/09/25 13:35 Lactic Acid 1.5 mmol/L (0.5-2.2) 04/09/25 13:35 Calcium 8.8 mg/dL (8.5-10.5) 04/09/25 13:35 Total Bilirubin 1.5 mg/dL (0.15-1.2) H 04/09/25 13:35 AST 24 U/L (0-40) 04/09/25 13:35 ALT 20 U/L (0-41) 04/09/25 13:35 Alkaline Phosphatase 210 U/L (40-130) H 04/09/25 13:35 Troponin T Baseline 36 ng/L (0-15) H 04/09/25 13:35 NT-Pro-B Natriuret Pep 1238 pg/mL (0-450) H 04/09/25 13:35 Total Protein 7.3 g/dL (6.6-8.7) 04/09/25 13:35 Albumin 4.3 g/dL (3.5-5.2) 04/09/25 13:35 Globulin 3.0 g/dL (1.3-4.6) 10/17/25 13:35 All radiology interpretation(s) finalized by discharge Discharge Plan Discharge Patient Disposition: Admitted As Inpatient Clinical Impression: Edema of left upper extremity, Anasarca, Hematuria Condition: Stable Coding Level of Care Code ED Saturation Equipment Operator for Rod Burnett
[2025-04-09 13:45] LABS: Hematocrit 34.1 % (37-53); Hemoglobin 11.10 g/dL (11.27-16.99); Mean Corpuscular HGB Conc 32.6 g/dL (30-55); Mean Corpuscular Hemoglobin 31.7 pg (27-33); Mean Corpuscular Volume 97.4 fl (82-101); Nucleated Red Blood Cells % 0 %; Platelet Count 146 10^3/cmm (157-399); Red Blood Count 3.50 10^6/uL (3.85-5.65); White Blood Count 8.53 10^3/uL (3.29-11.43)
[2025-04-09 14:05] LABS: Lactic Sepsis W/Reflex 1.5 mmol/L (0.5-2.2)
[2025-04-09 14:10] LABS: Troponin(5th) Baseline 36 ng/L (0-15)
[2025-04-09 14:19] LABS: Alanine Aminotransferase 20 U/L (0-41); Albumin Level 4.3 g/dL (3.5-5.2); Alkaline Phosphatase 210 U/L (40-130); Anion Gap 19.6 (5-19); Aspartate Amino Transferase 24 U/L (0-40); Blood Urea Nitrogen 45 mg/dL (8-23); Calcium 8.8 mg/dL (8.5-10.5); Carbon Dioxide 17 mmol/L (22-29); Chloride 102 mmol/L (98-107); Creatinine Clr Calc Pharmacy 29.3426; Globulin 3.0 g/dL (1.3-4.6); Glucose 93 mg/dL (65-115); NT Pro B Type Natriuretic Pept 1238 pg/mL (0-450); Osmolality Calculated 289 mOsm/kg (285-295); Potassium 4.6 mmol/L (3.5-5.1); Sodium 134 mmol/L (136-145); Total Protein 7.3 g/dL (6.6-8.7)
--- NOTE | 2025-04-09 14:34 | ECG_ITS ---
[facility] Test Date: 2025-04-09 Pat Name: Tank Saavedra Department: Room: Gender: Male Child Custody Evaluator: : 1935 Requested By: Cuca Whipple Order Number: [id number] Martinez MD: Marek Redmond M.D. Measurements Intervals [place] Rate: 71 P: 169 NE: 107 QRS: 150 QRSD: 33 T: 60 QT: 158 QTc: 172 Interpretive Statements ELECTRONIC ATRIAL PACEMAKER RIGHT AXIS DEVIATION [QRS AXIS > 100] LOW QRS VOLTAGE [QRS DEFLECTION < 0.5/1.0 mV IN LIMB/CHEST LEADS] POSSIBLE ANTEROSEPTAL MYOCARDIAL INFARCTION , PROBABLY OLD [30 ms Q WAVE IN V1-V4] Compared to ECG 03/17/2025 08:45:17 ST (T wave) deviation now present Ventricular-paced complex(es) or rhythm no longer present Ventricular premature complex(es) no longer present Electronically Signed On 04-10-2025 12:07:40 CDT by Marek Redmond M.D. [email or web address]
[2025-04-09 16:19] LABS: Troponin 5 2HR 30.66 ng/L (0-15)
[2025-04-09 16:21] LABS: Troponin 5 2HR Delta -5.34 ABS# (0-10)
[2025-04-09] MEDS: FUROsemide 10 mg/mL SDV 4mL 40 MG IVP (17:55)
--- NOTE | 2025-04-09 17:58 | PC.NURSE ---
300ml emptied out of pts lacy by this RN.
--- NOTE | 2025-04-09 18:05 | P.HP_ITS ---
Providers/Chief Complaint 2 Admitting Physician: Marti Courtney MD Primary Care Provider: Lizbeth Berrios MD Chief Complaint: L arm and hand black swelling blood in uraine History of Present Illness Tank Saavedra is a 89 year old male with past medical history of atrial fibrillation, cardiomyopathy, s/p PLANNING DIVISION SUPERINTENDENT-D , A fib, systolic CHF (LVEF 37%), status post TAVR, CAD status post CABG . He was recently admitted here between Mar 17- 03/26 after having been shocked by his PLANNING DIVISION SUPERINTENDENT-D multiple times. He was taken to laborer/key man for incessant VT which showed multivessel disease. He underwent PCI to mid obtuse marginal with a drug-eluting stent and PCI to mid circumflex with drug-eluting stent. He is currently maintained on Amiodarone, metoprolol and Mexiletene. VT eventually resolved. He had been started on aspirin and Plavix afterwards and was on full dose lovenox given A fib however hospital course was complicated by gross hematuria for which he eventually required transfer to [facility] where his states he had several procedures , presumably cytoscopy following which hematuria resolved and he was discharged. He has not been taking Plavix or lasix since discharge since he did not have prescriptions for these meds. He followed with Dr. Forman and was found to have anasarca for which he was directed to the ER. He had been in the ER yesterday since his lacy cath had stopped draining urine after having been replaced at [facility] just a day prior. a new lacy was placed in the ER. He was found to have LUE ecchymosis additionally. Review of Systems 2 General: Reports: 10 or more systems reviewed and unremarkable except in HPI and below Const: Denies: fever(s), chills or body aches Eyes: Denies: change in vision, blurry vision or photophobia ENMT: Reports: hoarseness; Denies: throat pain, enlarged tonsils, odynophagia or nasal congestion Card: Denies: chest pain, palpitations, irregular heart rhythm, edema, swelling of feet/ankles, lightheadedness, pre-syncope, dyspnea on exertion or orthopnea Resp: Denies: dyspnea, productive cough, non-productive cough, wheezing, stridor, pain on inspiration, change in phlegm color, hemoptysis or chest congestion GI: Denies: abdominal pain, nausea, vomiting, hematemesis, coffee ground emesis, dysphagia, heartburn, diarrhea, constipation, GI cramping, change in stool character, hematochezia or melena : Denies: flank pain, dysuria, urinary frequency, urinary urgency, urinary hesitancy or hematuria Musc: Denies: neck pain, back pain, extremity pain, joint swelling, joint warmth or deformity Neuro: Denies: headache(s), numbness in extremities, weakness in extremities, sensory changes, difficulty walking, frequent falls, dizziness, vertigo, behavioral changes, Slurred speech present or seizure-like activity Psych: Denies: anxiety, depression, suicidal ideation or homicidal ideation Endo: Denies: polyuria, polydipsia, tired all the time, cold intolerance or hot flashes [place]/Lymph: Denies: easy bruising or easy bleeding Medications/Allergies Home Medications ?Medication ?Instructions ?Recorded ?Confirmed ?Last Taken ?Type loratadine 10 mg tablet (Claritin) 10 mg PO BEDTIME@19 00 09/12/20 04/09/25 04/08/25 20:00 History ascorbic acid (vitamin C) 1,000 mg 1 g PO BID@0700,190 0 01/17/21 04/09/25 04/09/25 08:00 History tablet cholecalciferol (vitamin D3) 25 25 mcg PO DAILY 04/09/25 04/09/25 08:00 History mcg (1,000 unit) capsule lutein 25 mg-zeaxanthin 5 mg 1 cap PO DAILY 12/26/21 1 04/09/25 08:00 History capsule tamsulosin 0.4 mg capsule 0.4 mg PO BEDTIME@1900 #90 c aps 02/20/22 04/09/25 04/08/25 19:00 Rx atorvastatin 40 mg tablet 40 mg PO DAILY@1900 #90 tabs 03/01/22 04/09/25 04/08/25 19:00 Rx levothyroxine 150 mcg tablet 150 mcg PO DAILY #90 tabs 03/05/22 04/09/25 04/09/25 07:00 Rx (Euthyrox) methenamine hippurate 1 gram tablet See Rx Instruction s .Route 09/05/22 04/09/25 04/09/25 08:00 Rx .COMPLEX #60 tabs nitroglycerin 0.4 mg sublingual 0.4 mg sublingual Q5M PRN Chest 09/13/22 04/09/25 01/28/25 Rx tablet (Nitrostat) Pain #30 tabs triamcinolone acetonide 55 mcg 2 spray intranasal DEREK Y PRN 04/08/23 04/09/25 04/08/25 19:00 History nasal spray aerosol (Nasacort) allergies dorzolamide 22.3 mg-timolol 6.8 1 drp ophthalmic (eye) BID 05/06/24 04/09/25 04/08/25 20:00 History mg/mL eye drops spironolactone 25 mg tablet 12.5 mg (1/2 x 25 mg) PO D AILY #90 05/29/24 04/09/25 04/09/25 08:00 Rx tabs lycopene 10 mg capsule 15 mg PO DAILY@0700 10/28/24 04/09/25 04/09/25 07:00 History metoprolol succinate 25 mg 12.5 mg (1/2 x 25 mg) PO BI D #45 03/16/25 04/09/25 04/09/25 08:00 Rx tablet,extended release 24 hr tabs sacubitril 49 mg-valsartan 51 mg 0.5 tab PO BID #120 t abs 03/16/25 04/09/25 04/09/25 08:00 Rx tablet (Entresto) furosemide 20 mg tablet 20 mg PO DAILY 03/17/2503/2404/09/25 08:00 History omega-3 fatty acids 1,000 mg 1,000 mg PO DAILY 5 04/09/25 04/09/25 08:00 History capsule amiodarone 400 mg tablet 400 mg PO DAILY #90 tabs 04/09/25 Unknown Rx clopidogrel 75 mg tablet (Plavix) 75 mg PO DAILY #90 t abs 04/06/25 04/09/25 Unknown Rx mexiletine 150 mg capsule 150 mg PO BID 04/08/2504/0904/09/25 08:00 History Allergies Allergy/AdvReac Type Severity Reaction Status Date / Time fenofibrate Allergy Unknown Unknown Verified 02/09/25 15:27 levofloxacin Allergy Unknown Unknown Verified 02/09/25 15:27 niacin Allergy Unknown Unknown Verified 02/09/25 15:27 PFSH Acute 2 PFSH: Medical History Cardiac resynchronization therapy defibrillator (PLANNING DIVISION SUPERINTENDENT-D) in place CHF (congestive heart failure) Arrhythmia Urinary tract infection associated with indwelling urethral catheter, subsequent encounter History of myelodysplastic syndrome Chronic anticoagulation Clot retention of urine Hyponatremia Anemia Phimosis Urinary retention BPH (benign prostatic hyperplasia) Hypothyroidism Anticoagulation adequate with anticoagulant therapy Direct thrombin inhibitor Pradaxa Dyslipidemia Atrial fibrillation Patient has a history of recurrent GI bleed and spontaneous hematoma in the flank. So he was taken off the Pradaxa SSS (sick sinus syndrome) HTN (hypertension) ASHD (arteriosclerotic heart disease) Ischemic cardiomyopathy CKD (chronic kidney disease) Carotid stenosis, bilateral Aortic stenosis Mitral regurgitation Pulmonary HTN Surgical History H/O esophagogastroduodenoscopy (10/20/20) History of coronary artery stent placement Status post colonoscopy (10/20/20) diverticulosis, polyps S/P hernia repair S/P cataract extraction S/P CABG (coronary artery bypass graft) S/P ICD (internal cardiac defibrillator) procedure S/P TAVR (transcatheter aortic valve replacement) Family History Mother , at age 82 CAD (coronary artery disease) Father , at age 69 Stroke Social History Smoking and tobacco/nicotine status: never used tobacco/nicotine Alcohol intake: never Substance/Drug Use: never Adopted: No Caregiver/support person: No Lives independently: No Household members: spouse Marital status: Current occupational status: retired Vitals/I&O/Wt Last Vital Signs Temp 97.0 F L 04/09/25 12:36 Pulse 98 04/09/25 13:30 Resp 17 04/09/25 13:30 BP 105/51 04/09/25 13:30 Pulse Ox 96 04/09/25 13:30 O2 Del Method Room Air 04/09/25 12:36 Weight last 48 hrs Weight 90.718 kg Physical Exam 2 Narrative: General: No acute distress, AO x3, frail appearing elderly male HEENT: PERRLA, pupils bilaterally equal and reactive, pallors not present Chest: Normal vesicular breath sounds, no added sounds, equal good air entry bilaterally CVS: S1-S2 regular, no murmurs, no tachycardia, no gallops, no rubs Abdomen: Soft, nontender, no organomegaly, bowel sounds present Data 04/09/25 13:35 04/09/25 13:35 Micro: Microbiology 04/09/25 13:35 Blood Culture - Preliminary Blood SPECIMEN COLLECTED 04/09/25 13:35 Blood Culture - Preliminary Blood SPECIMEN COLLECTED Other data: Radiology Impressions Chest X-Ray 04/09/25 12:34 IMPRESSION: Stable chest without acute abnormality. Laboratory Results WBC 8.53 10^3/uL (3.29-11.43) 04/09/25 13:35 RBC 3.50 10^6/uL (3.85-5.65) L 04/09/25 13:35 Hgb 11.10 g/dL (11.27-16.99) L 04/09/25 13:35 Hct 34.1 % (37-53) L 04/09/25 13:35 MCV 97.4 fl (82-101) 04/09/25 13:35 MCH 31.7 pg (27-33) 04/09/25 13:35 MCHC 32.6 g/dL (30-55) D 04/09/25 13:35 RDW 19.1 % (12.1-15.1) H 04/09/25 13:35 Plt Count 146 10^3/cmm (157-399) L 04/09/25 13:35 MPV 12.5 fL (7.4-10.4) H 04/09/25 13:35 Neut % (Auto) 73.5 % 04/09/25 13:35 Lymph % (Auto) 13.2 % 04/09/25 13:35 [place] % (Auto) 9.4 % 04/09/25 13:35 Eos % (Auto) 2.7 % 04/09/25 13:35 Baso % (Auto) 0.7 % 04/09/25 13:35 Neut # (Auto) 6.27 10^3/uL (1.8-7.7) 04/09/25 13:35 Lymph # (Auto) 1.1 10^3/uL (0.8-4.8) 04/09/25 13:35 [place] # (Auto) 0.8 10^3/uL (0.2-0.9) 04/09/25 13:35 Eos # (Auto) 0.2 10^3/uL (0.0-0.8) 04/09/25 13:35 Baso # (Auto) 0.1 10^3/uL (0.0-0.1) 04/09/25 13:35 Nucleated RBC % (auto) 0 % 04/09/25 13:35 Nucleated RBCs # 0.0 /100WBC 04/09/25 13:35 Sodium 134 mmol/L (136-145) L 04/09/25 13:35 Potassium 4.6 mmol/L (3.5-5.1) 04/09/25 13:35 Chloride 102 mmol/L (98-107) 04/09/25 13:35 Carbon Dioxide 17 mmol/L (22-29) L 04/09/25 13:35 Anion Gap 19.6 (5-19) H 04/09/25 13:35 BUN 45 mg/dL (8-23) H 04/09/25 13:35 Creatinine 1.9 mg/dL (0.7-1.2) H 04/09/25 13:35 GFR Calculation Not Reportable 04/09/25 13:35 Glucose 93 mg/dL (65-115) 04/09/25 13:35 Calculated Osmolality 289 mOsm/kg (285-295) 04/09/25 13:35 Lactic Acid 1.5 mmol/L (0.5-2.2) 04/09/25 13:35 Calcium 8.8 mg/dL (8.5-10.5) 04/09/25 13:35 Total Bilirubin 1.5 mg/dL (0.15-1.2) H 04/09/25 13:35 AST 24 U/L (0-40) 04/09/25 13:35 ALT 20 U/L (0-41) 04/09/25 13:35 Alkaline Phosphatase 210 U/L (40-130) H 04/09/25 13:35 Troponin T Baseline 36 ng/L (0-15) H 04/09/25 13:35 Troponin T 120 Minute 30.66 ng/L (0-15) H 04/09/25 15:49 Delta Troponin T -5.34 ABS# (0-10) L 04/09/25 15:49 Troponin T Hi Sens 6Hr 31.01 ng/L (0-15) H 04/09/25 20:19 Troponin T Hi Sens 6Hr Delta -4.99 ng/L (0-12) L 04/09/25 20:19 NT-Pro-B Natriuret Pep 1238 pg/mL (0-450) H 04/09/25 13:35 Total Protein 7.3 g/dL (6.6-8.7) 04/09/25 13:35 Albumin 4.3 g/dL (3.5-5.2) 04/09/25 13:35 Globulin 3.0 g/dL (1.3-4.6) 04/09/25 13:35 A&P Assessment and plan 1. Chronic systolic heart failure: 2. Status post transcatheter aortic valve replacement (TAVR) using bioprosthesis: 3. Atrial fibrillation: 4. Cardiac resynchronization therapy defibrillator (PLANNING DIVISION SUPERINTENDENT-D) in place: 5. Hematuria: 6. Anasarca: Plan: 89F with recent history as noted above presenting today for anasarca , sent in from cardiology clinic patient has been off lasix since his recent discharge Anasarca likely related to acute on chronic sytsolic heart failure lasix 40mg iv given, start 40mg iv daily closely monitor renal function with diuresis Lacy cathetr in place, changed yesterday mild hematuria currently We will be resuming Plavix and ASA given recent stent placement Discussed with patient and risk of worsened hematuria, did offer transfer to [facility] in view of ongoing hematuria, however declined for now stating it is hard for them to visit him at [facility], will only transfer in case of massive bleeding. left arm hematoma, UE venous duplex negative for DVT dvt ppx: SCD only, no a/c due to hematoma and hematuria full code PDMP PDMP Reviewed: Not Reviewed Attestations 2 Medical Necessity Statement*: > 2 midnight stay anticipated Coding Level of Care Code Acute Code for Chg Fwd Diagnoses Chronic systolic heart failure I50.22 Status post transcatheter aortic valve replacement (TAVR) using bioprosthesis Z95.3 Atrial fibrillation I48.91 Cardiac resynchronization therapy defibrillator (PLANNING DIVISION SUPERINTENDENT-D) in place Z95.810 Hematuria R31.9 Scooter R60.1
--- NOTE | 2025-04-09 18:34 | ECG_ITS ---
[employer] Test Date: 2025-04-09 Pat Name: Tank Saavedra Department: Room: 107 Gender: Male [employer] Operator: : 1935 Requested By: Cuca Whipple Order Number: [id number] Martinez MD: Marek Redmond M.D. Measurements Intervals [place] Rate: 69 P: 116 MN: 110 QRS: 60 QRSD: 9 T: 48 QT: 135 QTc: 145 Interpretive Statements ELECTRONIC ATRIAL PACEMAKER LOW QRS VOLTAGE [QRS DEFLECTION < 0.5/1.0 mV IN LIMB/CHEST LEADS] POSSIBLE ANTERIOR MYOCARDIAL INFARCTION , PROBABLY OLD [30 ms Q WAVE IN V3/V4, OR R < 0.2 mV IN V4] INFERIOR MYOCARDIAL INFARCTION, AGE INDETERMINATE Compared to ECG 04/09/2025 14:46:29 Right-axis deviation no longer present Myocardial infarct finding still present ST (T wave) deviation still present Electronically Signed On 04-10-2025 12:06:08 CDT by Marke Redmond M.D. [email or web address]
--- NOTE | 2025-04-09 20:20 | PM.CONSULT ---
Providers/Reason For Consult Consulting Physician/Specialty*: Blair Yan MD Reason for Consult*: Volume overload/CHF Requesting Physician: Marti Courtney MD Attending Physician: Marti Courtney MD Primary Care Provider: Lizbeth Berrios MD History of Present Illness History of Present Illness Tank Saavedra is a 89 year old male with a history of coronary artery disease, CABG, paroxysmal atrial fibrillation, ventricular tachycardia, ischemic cardiomyopathy, chronic heart failure with reduced ejection fraction, TAVR and CONTRACT MANAGER?D therapy with biventricular pacemaker who was admitted from March 17 to March 26, 2025 as [facility]. The patient had presented with recurrent ICD shocks for incessant ventricular tachycardia. Urgent heart catheterization revealed multivessel coronary artery disease and drug-eluting stents were placed to the obtuse marginal and circumflex vessels. The patient had subsequent ventricular tachycardia that was ultimately controlled with metoprolol, amiodarone and mexiletine. EP was contacted who felt that VT ablation was not necessary. During the hospitalization the patient developed hematuria and the patient was transferred to [facility] for urological care. The patient received bladder irrigation and Wang catheter treatment was continued. The patient was seen in follow-up today in cardiology clinic with Dr. LILLIAN ZAMBRANO who found the patient to be volume overloaded and to have severe swelling and ecchymosis of the left upper extremity and hand. The patient was sent to the emergency room where a venous Doppler of the left upper extremity was negative for DVT. The patient is being admitted for IV diuresis. The patient denies chest pain but does have some shortness of breath Pacemaker interrogation from 04/07/2025 personally interpreted by myself showed no ventricular tachycardia or atrial fibrillation in the last month. Medications/Allergies Home Medications ?Medication ?Instructions ?Recorded ?Confirmed ?Last Taken ?Type loratadine 10 mg tablet (Claritin) 10 mg PO BEDTIME@1900 09/12/20 04/09/25 04/08/25 20:00 History ascorbic acid (vitamin C) 1,000 mg 1 g PO BID@0700,1900 01/17/21 04/09/25 04/09/25 08:00 History tablet cholecalciferol (vitamin D3) 25 25 mcg PO DAILY 12/21/21 04/09/25 04/09/25 08:00 History mcg (1,000 unit) capsule lutein 25 mg-zeaxanthin 5 mg 1 cap PO DAILY 12/26/21 04/09/25 04/09/25 08:00 History capsule tamsulosin 0.4 mg capsule 0.4 mg PO BEDTIME@1900 #90 caps 02/20/22 04/09/25 04/08/25 19:00 Rx atorvastatin 40 mg tablet 40 mg PO DAILY@1900 #90 tabs 03/01/22 04/09/25 04/08/25 19:00 Rx levothyroxine 150 mcg tablet 150 mcg PO DAILY #90 tabs 03/05/22 04/09/25 04/09/25 07:00 Rx (Euthyrox) methenamine hippurate 1 gram tablet See Rx Instructions .Route 09/05/22 04/09/25 04/09/25 08:00 Rx .COMPLEX #60 tabs nitroglycerin 0.4 mg sublingual 0.4 mg sublingual Q5M PRN Chest 09/13/22 04/09/25 01/28/25 Rx tablet (Nitrostat) Pain #30 tabs triamcinolone acetonide 55 mcg 2 spray intranasal DAILY PRN 04/08/23 04/09/25 04/08/25 19:00 History nasal spray aerosol (Nasacort) allergies dorzolamide 22.3 mg-timolol 6.8 1 drp ophthalmic (eye) BID 05/06/24 04/09/25 04/08/25 20:00 History mg/mL eye drops spironolactone 25 mg tablet 12.5 mg (1/2 x 25 mg) PO DAILY #90 05/29/24 04/09/25 04/09/25 08:00 Rx tabs lycopene 10 mg capsule 15 mg PO DAILY@0700 10/28/24 04/09/25 04/09/25 07:00 History metoprolol succinate 25 mg 12.5 mg (1/2 x 25 mg) PO BID #45 03/16/25 04/09/25 04/09/25 08:00 Rx tablet,extended release 24 hr tabs sacubitril 49 mg-valsartan 51 mg 0.5 tab PO BID #120 tabs 03/16/25 04/09/25 04/09/25 08:00 Rx tablet (Entresto) furosemide 20 mg tablet 20 mg PO DAILY 09/04/09/25 04/09/25 08:00 History omega-3 fatty acids 1,000 mg 1,000 mg PO DAILY 03/17/25 04/09/25 04/09/25 08:00 History capsule amiodarone 400 mg tablet 400 mg PO DAILY #90 tabs 04/06/25 04/09/25 Unknown Rx clopidogrel 75 mg tablet (Plavix) 75 mg PO DAILY #90 tabs 04/06/25 04/09/25 Unknown Rx mexiletine 150 mg capsule 150 mg PO BID 04/08/25 04/09/25 04/09/25 08:00 History Allergies Allergy/AdvReac Type Severity Reaction Status Date / Time fenofibrate Allergy Unknown Unknown Verified 02/09/25 15:27 levofloxacin Allergy Unknown Unknown Verified 02/09/25 15:27 niacin Allergy Unknown Unknown Verified 02/09/25 15:27 Current Medications Generic Name Dose Route Start Last Admin Trade Name Freq PRN Reason Stop Dose Admin Atorvastatin Calcium 40 mg 04/09/25 19:00 04/09/25 20:01 Atorvastatin 40 Mg Tablet PO 40 mg DAILY@1900 DEONNA Administration Tamsulosin HCl 0.4 mg 04/09/25 19:00 04/09/25 20:01 Tamsulosin 0.4 Mg Capsule PO 0.4 mg BEDTIME@1900 DEONNA Administration PFSH Acute PFSH: Medical History (Updated 04/09/25 @ 20:34 by Blair Yan MD) Cardiac resynchronization therapy defibrillator (CONTRACT MANAGER-D) in place CHF (congestive heart failure) Arrhythmia Urinary tract infection associated with indwelling urethral catheter, subsequent encounter History of myelodysplastic syndrome Chronic anticoagulation Clot retention of urine Hyponatremia Anemia Phimosis Urinary retention BPH (benign prostatic hyperplasia) Hypothyroidism Anticoagulation adequate with anticoagulant therapy Direct thrombin inhibitor Pradaxa Dyslipidemia Atrial fibrillation Patient has a history of recurrent GI bleed and spontaneous hematoma in the flank. So he was taken off the Pradaxa SSS (sick sinus syndrome) HTN (hypertension) ASHD (arteriosclerotic heart disease) Ischemic cardiomyopathy CKD (chronic kidney disease) Carotid stenosis, bilateral Aortic stenosis Mitral regurgitation Pulmonary HTN Surgical History H/O esophagogastroduodenoscopy (10/20/20) History of coronary artery stent placement Status post colonoscopy (10/20/20) diverticulosis, polyps S/P hernia repair S/P cataract extraction S/P CABG (coronary artery bypass graft) S/P ICD (internal cardiac defibrillator) procedure S/P TAVR (transcatheter aortic valve replacement) Family History Mother , at age 82 CAD (coronary artery disease) Father , at age 69 Stroke Social History Smoking and tobacco/nicotine status: never used tobacco/nicotine Alcohol intake: never Substance/Drug Use: never Adopted: No Caregiver/support person: No Lives independently: No Household members: spouse Marital status: Current occupational status: retired Vitals/I&O/Wt Last Vital Signs Temp 98.0 F 04/09/25 19:25 Pulse 70 04/09/25 19:25 Resp 17 04/09/25 19:25 BP 112/68 04/09/25 19:25 Pulse Ox 100 04/09/25 19:25 O2 Del Method Room Air 04/09/25 19:25 O2 Flow Rate 3 04/09/25 14:30 Weight last 48 hrs Weight 200 lb Physical Exam Narrative: General: In no acute distress Neck: No jugular venous distention or carotid bruits Heart:RRR Lungs: Normal respiratory effort with no use of intercostal muscles, clear lungs sounds to auscultation Extremities: 2+ bilateral LE edema. Severe swelling and ecchymoses of the left arm and hand Neuro: Alert and oriented Data 04/09/25 13:35 04/09/25 13:35 Micro: Microbiology 04/09/25 13:35 Blood Culture - Preliminary Blood SPECIMEN COLLECTED 04/09/25 13:35 Blood Culture - Preliminary Blood SPECIMEN COLLECTED A&P Assessment and plan 1. Edema of left upper extremity: Left upper extremity venous Doppler negative for DVT Elevate left hand and arm Lasix 40 mg IV x 1 now 2. CAD (coronary artery disease): History of CABG Status post drug-eluting stents to OM and circumflex vessels 02/2025 Having no angina symptoms Continue Plavix 75 mg daily 3. Cardiac resynchronization therapy defibrillator (CONTRACT MANAGER-D) in place: Functioning normally on pacer interrogation 4. Status post transcatheter aortic valve replacement (TAVR) using bioprosthesis: 5. Chronic systolic heart failure: Biventricular failure, LV EF 37% 03/17/25 With acute exacerbation and volume overload Start Lasix 40 mg IV x 1 now and then twice daily if renal function is stable Continue metoprolol, Entresto, spironolactone SGLT2 inhibitor is not recommended in patient of this age 6. Ventricular tachycardia, incessant: Stable with no recurrence over the past month Resume amiodarone 400 mg a day and mexiletine 7. Hematuria: Wang catheter in place defer treatment to Hospitalist 8. PAF (paroxysmal atrial fibrillation): No A-fib according to pacemaker interrogation over the past month Holding anticoagulation due to hematuria Continue metoprolol and amiodarone PDMP PDMP Reviewed: Not Reviewed Coding Level of Care Code 93477 Diagnoses Edema of left upper extremity R60.0 CAD (coronary artery disease) I25.10 Cardiac resynchronization therapy defibrillator (CONTRACT MANAGER-D) in place Z95.810 Status post transcatheter aortic valve replacement (TAVR) using bioprosthesis Z95.3 Chronic systolic heart failure I50.22 Ventricular tachycardia, incessant I47.29 Hematuria R31.9 PAF (paroxysmal atrial fibrillation) I48.0
[2025-04-09 21:10] LABS: Troponin 5 6HR 31.01 ng/L (0-15)
[2025-04-09 21:15] LABS: Troponin 5 6HR Delta -4.99 ng/L (0-12)
[2025-04-10] VITALS (7 sets, daily range): BP systolic 83–112; BP diastolic 56–63; PULSE 70–79; RESP 15–23; TEMP 36.6–37; O2SAT 91–100
--- NOTE | 2025-04-10 04:30 | PC.NURSE ---
Contacted physician because patient has 400mg of amiodarone PO and metoprolol succinate 12.5mg PO due now, but his blood pressure is 97/57 with a map of 70. Per physician hold both medications.
[2025-04-10 05:09] LABS: Hematocrit 28.6 % (37-53); Hemoglobin 9.10 g/dL (11.27-16.99); Mean Corpuscular HGB Conc 31.8 g/dL (30-55); Mean Corpuscular Hemoglobin 31.1 pg (27-33); Mean Corpuscular Volume 97.6 fl (82-101); Nucleated Red Blood Cells % 0 %; Platelet Count 111 10^3/cmm (157-399); Red Blood Count 2.93 10^6/uL (3.85-5.65); White Blood Count 6.94 10^3/uL (3.29-11.43)
[2025-04-10 05:35] LABS: Alanine Aminotransferase 20 U/L (0-41); Albumin Level 3.5 g/dL (3.5-5.2); Alkaline Phosphatase 164 U/L (40-130); Blood Urea Nitrogen 45 mg/dL (8-23); Calcium 8.6 mg/dL (8.5-10.5); Carbon Dioxide 18 mmol/L (22-29); Chloride 105 mmol/L (98-107); Globulin 2.6 g/dL (1.3-4.6); Glucose 98 mg/dL (65-115); Osmolality Calculated 292 mOsm/kg (285-295); Sodium 135 mmol/L (136-145); Total Protein 6.1 g/dL (6.6-8.7)
[2025-04-10 05:36] LABS: Creatinine Clr Calc Pharmacy 35.4255
[2025-04-10 05:37] LABS: Anion Gap 16.7 (5-19); Aspartate Amino Transferase 28 U/L (0-40); Potassium 4.7 mmol/L (3.5-5.1)
--- NOTE | 2025-04-10 11:37 | PM.PN ---
Subjective Subjective: Denies SOB, lightheadedness and chest pain Vitals/I&O/Wt Last Vital Signs Temp 97.9 F 04/10/25 07:40 Pulse 70 04/10/25 07:40 Resp 15 04/10/25 07:40 BP 96/56 04/10/25 07:40 Pulse Ox 99 04/10/25 07:40 O2 Del Method Room Air 04/10/25 07:40 O2 Flow Rate 3 04/09/25 14:30 04/09/25 04/10/25 04/10/25 22:59 06:59 14:59 Intake Total 360 / 360 120 / 480 240 / 240 Output Total 750 / 750 450 / 1200 Balance -390 / -390 -330 / -720 240 / 240 Weight last 48 hrs Weight 207 lb 10.807 oz Weight 207 lb 3.752 oz Weight 200 lb Physical Exam Narrative: General: In no acute distress Neck: No jugular venous distention or carotid bruits Heart:RRR Lungs: Normal respiratory effort with no use of intercostal muscles, clear lungs sounds to auscultation Extremities: 2+ bilateral LE edema. Severe swelling and ecchymoses of the left arm and hand Neuro: Alert and oriented Data 04/10/25 04:27 04/10/25 04:27 Micro: Microbiology 04/09/25 13:35 Blood Culture - Preliminary Blood SPECIMEN COLLECTED 04/09/25 13:35 Blood Culture - Preliminary Blood SPECIMEN COLLECTED A&P Assessment and plan 1. Edema of left upper extremity: Left upper extremity venous Doppler negative for DVT Swelling and bruising improving continue to elevate left hand and arm Lasix 40 mg IV q 12 hours 2. CAD (coronary artery disease): History of CABG Status post drug-eluting stents to OM and circumflex vessels 02/2025 Having no angina symptoms Continue Plavix 75 mg daily 3. Cardiac resynchronization therapy defibrillator (CUTTING MACHINE TENDER DECORATIVE-D) in place: Functioning normally on pacer interrogation 4. Status post transcatheter aortic valve replacement (TAVR) using bioprosthesis: 5. Chronic systolic heart failure: Biventricular failure, LV EF 37% 03/17/25 With acute exacerbation and volume overload Diuresed well and improvement in Cr after one dose of lasix 40mg IV Continue metoprolol, Entresto, spironolactone SGLT2 inhibitor is not recommended in patient of this age start Lasix 40mg IV [id number] repeat bmp in am 6. Ventricular tachycardia, incessant: Stable with no recurrence over the past month Resume amiodarone 400 mg a day and mexiletine 7. Hematuria: Wang catheter in place defer treatment to Hospitalist 8. PAF (paroxysmal atrial fibrillation): No A-fib according to pacemaker interrogation over the past month Holding anticoagulation due to hematuria Continue metoprolol and amiodarone PDMP PDMP Reviewed: Not Reviewed Attestations Medical Necessity Statement*: needs 2 more midnights in hospital due to CHF exacerbation Coding Level of Care Code Acute Code for Chg Fwd Diagnoses Edema of left upper extremity R60.0 CAD (coronary artery disease) I25.10 Cardiac resynchronization therapy defibrillator (CUTTING MACHINE TENDER DECORATIVE-D) in place Z95.810 Status post transcatheter aortic valve replacement (TAVR) using bioprosthesis Z95.3 Chronic systolic heart failure I50.22 Ventricular tachycardia, incessant I47.29 Hematuria R31.9 PAF (paroxysmal atrial fibrillation) I48.0
--- NOTE | 2025-04-10 12:19 | PC.NURSE ---
Patients blood pressures have been soft, average MAP in the high 60's. School Leader aware, orders to proceed with lasix.
--- NOTE | 2025-04-10 12:33 | P.PN_ITS ---
Subjective 2 Subjective: Left upper extremity swelling improving by significantly bruised Vitals/I&O/Wt Last Vital Signs Temp 98.5 F 04/10/25 11:55 Pulse 76 04/10/25 11:55 Resp 19 H 04/10/25 11:55 BP 83/59 04/10/25 11:55 Pulse Ox 91 04/10/25 11:55 O2 Del Method Room Air 04/10/25 11:55 O2 Flow Rate 3 04/09/25 14:30 04/09/25 04/10/25 04/10/25 22:59 06:59 14:59 Intake Total 360 / 360 120 / 480 240 / 240 Output Total 750 / 750 450 / 1200 Balance -390 / -390 -330 / -720 240 / 240 Weight last 48 hrs Weight 94.2 kg Weight 94 kg Weight 90.718 kg Physical Exam 2 Narrative: Patient with always cheerful disposition very pleasant He denies complaint upon rounds and denies any pain Does have some light hematuria HEENT normocephalic/atraumatic neck neck is supple cardiovascular heart rate is regular lungs are pretty much clear abdomen soft nontender nondistended unremarkable extremities are intact but significant swelling of the left upper extremity with edema has good pulses. Neurology has no focality lab studies lab studies reviewed and noted. Data 04/10/25 04:27 04/10/25 04:27 Micro: Microbiology 04/09/25 13:35 Blood Culture - Preliminary Blood SPECIMEN COLLECTED 04/09/25 13:35 Blood Culture - Preliminary Blood SPECIMEN COLLECTED A&P Assessment and plan 1. PAF (paroxysmal atrial fibrillation): 2. Hematuria: 3. Anasarca: 4. Edema of left upper extremity: 5. CAD (coronary artery disease): 6. Cardiomyopathy: Plan: Left upper extremity edema DVT negative swelling and bruised - Improved today on Lasix - Patient is on spironolactone IV Lasix for 40 mg twice daily baseline creatinine had been 0.9-1 today is 1.6 - Will exercise caution concerning risk for ATN - Will continue to treat and monitor Ischemic cardiomyopathy - No chest pains - Continue cardiac medication Recent coronary artery disease with stent placement chest last month - Continue Plavix Gross hematuria - This is minimizing - Hemoglobin is stable - Continue to monitor and follow-up closely PDMP PDMP Reviewed: Not Reviewed Attestations 2 Medical Necessity Statement*: Patient have active medical problem with left upper extremity swelling 3 times more than the contralateral side with active hematuria and anasarca requiring IV Lasix will need at least 2 midnights for optimization of care Coding Level of Care Code 82097 Diagnoses PAF (paroxysmal atrial fibrillation) I48.0 Hematuria R31.9 Anasarca R60.1 Edema of left upper extremity R60.0 CAD (coronary artery disease) I25.10 Cardiomyopathy I42.9 Time Spent (min) 40
[2025-04-10] MEDS: FUROsemide 10 mg/mL SDV 4mL 40 MG IVP ×2 (13:28→23:40)
[2025-04-10 17:54] LABS: Hematocrit 30.3 % (37-53); Hemoglobin 9.50 g/dL (11.27-16.99); Mean Corpuscular HGB Conc 31.4 g/dL (30-55); Mean Corpuscular Hemoglobin 31.7 pg (27-33); Mean Corpuscular Volume 101.0 fl (82-101); Nucleated Red Blood Cells % 0 %; Platelet Count 130 10^3/cmm (157-399); Red Blood Count 3.00 10^6/uL (3.85-5.65); White Blood Count 8.08 10^3/uL (3.29-11.43)
[2025-04-10] MEDS: metoprolol succinate ER (24 HR) 25 mg Tablet 12.5 MG PO (18:01)
[2025-04-10 18:20] LABS: Alanine Aminotransferase 18 U/L (0-41); Albumin Level 3.3 g/dL (3.5-5.2); Alkaline Phosphatase 173 U/L (40-130); Blood Urea Nitrogen 47 mg/dL (8-23); Calcium 8.3 mg/dL (8.5-10.5); Carbon Dioxide 15 mmol/L (22-29); Chloride 104 mmol/L (98-107); Creatinine Clr Calc Pharmacy 33.3750; Globulin 2.9 g/dL (1.3-4.6); Glucose 97 mg/dL (65-115); Osmolality Calculated 288 mOsm/kg (285-295); Sodium 133 mmol/L (136-145); Total Protein 6.2 g/dL (6.6-8.7)
[2025-04-10 18:22] LABS: Anion Gap 18.6 (5-19); Potassium 4.6 mmol/L (3.5-5.1)
[2025-04-10 18:23] LABS: Aspartate Amino Transferase 24 U/L (0-40)
[2025-04-10 22:58] LABS: Glucose Urine UA Norm (Normal); Nitrate Urine Negative (Negative); Specific Gravity, Urine 1.020 (1.005-1.030)
[2025-04-10 22:59] LABS: UA Manual Slide Review YES
[2025-04-11] VITALS (13 sets, daily range): BP systolic 92–109; BP diastolic 46–66; PULSE 68–77; RESP 13–21; TEMP 36.5–36.7; O2SAT 83–100
[2025-04-11 03:45] LABS: Hematocrit 28.4 % (37-53); Hemoglobin 9.20 g/dL (11.27-16.99); Mean Corpuscular HGB Conc 32.4 g/dL (30-55); Mean Corpuscular Hemoglobin 31.3 pg (27-33); Mean Corpuscular Volume 96.6 fl (82-101); Nucleated Red Blood Cells % 0 %; Platelet Count 109 10^3/cmm (157-399); Red Blood Count 2.94 10^6/uL (3.85-5.65); White Blood Count 7.44 10^3/uL (3.29-11.43)
[2025-04-11 04:05] LABS: Alanine Aminotransferase 17 U/L (0-41); Albumin Level 3.4 g/dL (3.5-5.2); Alkaline Phosphatase 181 U/L (40-130); Anion Gap 16.2 (5-19); Aspartate Amino Transferase 20 U/L (0-40); Blood Urea Nitrogen 47 mg/dL (8-23); Calcium 8.2 mg/dL (8.5-10.5); Carbon Dioxide 19 mmol/L (22-29); Chloride 104 mmol/L (98-107); Globulin 2.6 g/dL (1.3-4.6); Glucose 99 mg/dL (65-115); Osmolality Calculated 292 mOsm/kg (285-295); Potassium 4.2 mmol/L (3.5-5.1); Sodium 135 mmol/L (136-145); Total Protein 6.0 g/dL (6.6-8.7)
[2025-04-11 04:31] LABS: Creatinine Clr Calc Pharmacy 33.0417
--- NOTE | 2025-04-11 06:45 | PC.NURSE ---
Patient BP soft, Dr Trivedi notified and metoprolol and amio held this am.
--- NOTE | 2025-04-11 12:18 | P.PN_ITS ---
Subjective 2 Subjective: Denies SOB and CP Vitals/I&O/Wt Last Vital Signs Temp 98.1 F 04/11/25 11:15 Pulse 70 04/11/25 11:15 Resp 16 04/11/25 11:15 BP 101/59 04/11/25 11:15 Pulse Ox 96 04/11/25 11:15 O2 Del Method Room Air 04/11/25 11:15 O2 Flow Rate 3 04/09/25 14:30 04/10/25 04/11/25 04/11/25 22:59 06:59 14:59 Intake Total 120 / 600 480 / 1080 240 / 240 Output Total 600 / 750 450 / 1200 Balance -480 / -150 30 / -120 240 / 240 Weight last 48 hrs Weight 203 lb 4.259 oz Weight 207 lb 10.807 oz Weight 207 lb 3.752 oz Weight 200 lb Physical Exam 2 Narrative: General: In no acute distress Neck: No jugular venous distention or carotid bruits Heart:RRR Lungs: Normal respiratory effort with no use of intercostal muscles, clear lungs sounds to auscultation Extremities: 2+ bilateral LE edema. Severe swelling and ecchymoses of the left arm and hand mildly improved from admission Neuro: Alert and oriented Data 04/11/25 03:06 04/11/25 03:06 Micro: Microbiology 04/09/25 13:35 Blood Culture - Preliminary Blood Staphylococcus sp coag neg 04/09/25 13:35 Blood Culture - Preliminary Blood NEGATIVE TO DATE A&P Assessment and plan 1. Edema of left upper extremity: Left upper extremity venous Doppler negative for DVT Swelling and bruising improving slowly continue to elevate left hand and arm Lasix 40 mg IV q 12 hours 2. CAD (coronary artery disease): History of CABG Status post drug-eluting stents to OM and circumflex vessels 02/2025 Having no angina symptoms Continue Plavix 75 mg daily 3. Cardiac resynchronization therapy defibrillator (ELECTRIC TRUCKER-D) in place: Functioning normally on pacer interrogation 4. Status post transcatheter aortic valve replacement (TAVR) using bioprosthesis: 5. Chronic systolic heart failure: Biventricular failure, LV EF 37% 03/17/25 With acute exacerbation and volume overload Diuresed well and improvement in Cr after one dose of lasix 40mg IV, however I/O no longer net negative Continue metoprolol, Entresto, spironolactone SGLT2 inhibitor is not recommended in patient of this age continue Lasix 40mg IV [id number] Add Metolazone 5mg 30 minute before next Lasix dose repeat bmp in am 6. Ventricular tachycardia, incessant: Stable with no recurrence over the past month Resume amiodarone 400 mg a day and mexiletine 7. Hematuria: Wang catheter in place defer treatment to Hospitalist 8. PAF (paroxysmal atrial fibrillation): No A-fib according to pacemaker interrogation over the past month Holding anticoagulation due to hematuria Continue metoprolol and amiodarone PDMP PDMP Reviewed: Not Reviewed Attestations 2 Medical Necessity Statement*: needs atleast 2 more midnights in hospital for chf Coding Level of Care Code Acute Code for Chg Fwd Diagnoses Edema of left upper extremity R60.0 CAD (coronary artery disease) I25.10 Cardiac resynchronization therapy defibrillator (ELECTRIC TRUCKER-D) in place Z95.810 Status post transcatheter aortic valve replacement (TAVR) using bioprosthesis Z95.3 Chronic systolic heart failure I50.22 Ventricular tachycardia, incessant I47.29 Hematuria R31.9 PAF (paroxysmal atrial fibrillation) I48.0
[2025-04-11] MEDS: FUROsemide 10 mg/mL SDV 4mL 40 MG IVP (14:20)
--- NOTE | 2025-04-11 17:23 | P.PN_ITS ---
Vitals/I&O/Wt Last Vital Signs Temp 97.9 F 04/11/25 15:10 Pulse 70 04/11/25 15:10 Resp 18 04/11/25 15:10 BP 100/63 04/11/25 15:10 Pulse Ox 100 04/11/25 15:10 O2 Del Method Room Air 04/11/25 15:10 O2 Flow Rate 3 04/09/25 14:30 04/11/25 04/11/25 04/11/25 06:59 14:59 22:59 Intake Total 480 / 1080 480 / 480 Output Total 450 / 1200 300 / 300 Balance 30 / -120 180 / 180 Weight last 48 hrs Weight 92.2 kg Weight 94.2 kg Weight 94 kg Physical Exam 2 Narrative: General the patient is in no apparent distress and the patient hematuria had resolved urine is very clean and clear. Patient is nearing discharge. had indicated that Ms. Gomez 100 mg twice daily that the patient was supposed to be taking is at home and did not bring get to the hospital. And this is for patient's V. tach and arrhythmia.. Patient had not had any arrhythmia of of my olindalin. Patient will be discharged tomorrow and can continue this medicine at home home is far from the hospita, the said HEENT normocephalic/atraumatic neck neck is supple cardiovascular heart rate is regular lungs are pretty much clear abdomen soft nontender nondistended unremarkable extremities are intact no edema has good pulses neurology has no focality lab studies lab studies reviewed and noted. Data 04/11/25 03:06 04/11/25 03:06 Micro: Microbiology 04/09/25 13:35 Blood Culture - Preliminary Blood Staphylococcus sp coag neg 04/09/25 13:35 Blood Culture - Preliminary Blood NEGATIVE TO DATE A&P Assessment and plan 1. Cardiomyopathy: 2. PAF (paroxysmal atrial fibrillation): 3. Hematuria: 4. Anasarca: 5. Edema of left upper extremity: 6. CAD (coronary artery disease): 7. Ventricular tachycardia, incessant: 8. AICD discharge: Plan: Anasarca - Patient with diuresis - Patient is having ill effects of hypotension from this leading to acute renal failure - Will initiate albumin at this time and midodrine to keep the blood pressure up and probably improve the volume status will continue to feed into the kidney Gross hematuria - Resolved, urine is very clear david urine - UA is negative for any microorganism on culture 04/08/2025 AICD discharge-resolved Patient is on amiodarone but not on Maxilene, patient has masculine at home -Case discussed with cardiology Dr. Levine and Dr. Echavarria on a right prescription outpatient so that the family can get the mexiletine 150 mg twice daily outpatient for inpatient use. Rate limiting step for discharge is optimization of anasarca and maintaining good renal function for this patient. Patient baseline creatinine is 0.8-0.9 now the creatinine is rising to a 1.7 in this 89-year-old. Debility -PT OT to follow-up with the patient from bedside PT as tolerated until the blood pressure comes up patient will not be able to walk across the hallway. PDMP PDMP Reviewed: Not Reviewed Attestations 2 Medical Necessity Statement*: Patient need 48 hours or more to optimize care prior to going home on account of acute renal failure and left upper extremity edema on diuresis. Coding Level of Care Code 22430 Diagnoses Cardiomyopathy I42.9 PAF (paroxysmal atrial fibrillation) I48.0 Hematuria R31.9 Anasarca R60.1 Edema of left upper extremity R60.0 CAD (coronary artery disease) I25.10 Ventricular tachycardia, incessant I47.29 AICD discharge Z45.02 Time Spent (min) 60
[2025-04-11] MEDS: albumin 25 G/100 ML BAG 60 G IV (23:55)
[2025-04-12] VITALS (49 sets, daily range): BP systolic 76–113; BP diastolic 38–78; PULSE 66–77; RESP 0–24; TEMP 36.5–36.6; O2SAT 81–100
--- NOTE | 2025-04-12 03:50 | PC.NURSE ---
Around 0100 patient was almost finihsed with albumin and this nurse was going to give lasix 40 mg scheduled. Patient BP is 89/54. Notified Dr. smith and received orders to hold lasix for a SBP of less than 100. Also notified that patient does have JVD. Discussed respiratory status.
[2025-04-12 09:54] LABS: Hematocrit 27.6 % (37-53); Hemoglobin 9.10 g/dL (11.27-16.99); Mean Corpuscular HGB Conc 33.0 g/dL (30-55); Mean Corpuscular Hemoglobin 32.2 pg (27-33); Mean Corpuscular Volume 97.5 fl (82-101); Nucleated Red Blood Cells % 0 %; Platelet Count 116 10^3/cmm (157-399); Red Blood Count 2.83 10^6/uL (3.85-5.65); White Blood Count 6.61 10^3/uL (3.29-11.43)
--- NOTE | 2025-04-12 10:09 | PC.NURSE ---
0845 lasix held due to blood pressure being below parameters. Will re assess around 12
[2025-04-12 10:14] LABS: Alanine Aminotransferase 13 U/L (0-41); Albumin Level 3.6 g/dL (3.5-5.2); Alkaline Phosphatase 166 U/L (40-130); Anion Gap 16.0 (5-19); Aspartate Amino Transferase 18 U/L (0-40); Blood Urea Nitrogen 49 mg/dL (8-23); Calcium 8.2 mg/dL (8.5-10.5); Carbon Dioxide 18 mmol/L (22-29); Chloride 101 mmol/L (98-107); Creatinine Clr Calc Pharmacy 33.8750; Globulin 2.6 g/dL (1.3-4.6); Glucose 108 mg/dL (65-115); Osmolality Calculated 286 mOsm/kg (285-295); Potassium 4.0 mmol/L (3.5-5.1); Sodium 131 mmol/L (136-145); Total Protein 6.2 g/dL (6.6-8.7)
--- NOTE | 2025-04-12 10:37 | PC.SOCIAL ---
IMM Update pg 2 of IMM Updated and reviewed w/ patient. Copy provided and copy dated, initialed and placed in chart.
[2025-04-12] MEDS: albumin 25 G/100 ML BAG 60 G IV ×2 (11:48→23:41)
[2025-04-12] MEDS: FUROsemide 10 mg/mL SDV 4mL 40 MG IVP ×2 (14:11→22:42)
--- NOTE | 2025-04-12 16:56 | PM.PN ---
Subjective Subjective: Denies SOB layin gin bed Vitals/I&O/Wt Last Vital Signs Temp 97.9 F 04/12/25 11:34 Pulse 69 04/12/25 16:00 Resp 20 H 04/12/25 16:00 BP 95/48 04/12/25 16:00 Pulse Ox 99 04/12/25 16:00 O2 Del Method Room Air 04/12/25 14:11 O2 Flow Rate 3 04/09/25 14:30 04/12/25 04/12/25 04/12/25 06:59 14:59 22:59 Intake Total 100 / 820 700 / 700 Output Total 450 / 750 500 / 500 Balance -350 / 70 700 / 700 -500 / 200 Weight last 48 hrs Weight 214 lb 4.629 oz Weight 203 lb 4.259 oz Physical Exam Narrative: General: In no acute distress Neck: No jugular venous distention or carotid bruits Heart:RRR Lungs: Normal respiratory effort with no use of intercostal muscles, clear lungs sounds to auscultation Extremities: 1+ bilateral LE edema. Severe swelling and ecchymoses of the left arm and hand mildly improved from yesterday Neuro: Alert and oriented Data 04/12/25 09:36 04/12/25 09:36 Micro: Microbiology 04/10/25 21:49 Urine Culture - Preliminary Urine,Clean Catch A&P Assessment and plan 1. Edema of left upper extremity: Left upper extremity venous Doppler negative for DVT Swelling and bruising improving slowly continue to elevate left hand and arm Albumin 25mg IV followed by Lasix 40 mg IV q 12 hours 2. CAD (coronary artery disease): History of CABG Status post drug-eluting stents to OM and circumflex vessels 02/2025 Having no angina symptoms Continue Plavix 75 mg daily 3. Cardiac resynchronization therapy defibrillator (ELECTRONIC BENCH TECHNICIAN-D) in place: Functioning normally on pacer interrogation 4. Status post transcatheter aortic valve replacement (TAVR) using bioprosthesis: 5. Chronic systolic heart failure: Biventricular failure, LV EF 37% 03/17/25 With acute exacerbation and volume overload SGLT2 inhibitor is not recommended in patient of this age Albumin 25gm followed by Lasix 40mg IV [id number] compression repeat bmp in am 6. Ventricular tachycardia, incessant: Stable with no recurrence over the past month Resume amiodarone 400 mg a day and mexiletine 150mg bid 7. Hematuria: Wang catheter in place defer treatment to Hospitalist 8. PAF (paroxysmal atrial fibrillation): No A-fib according to pacemaker interrogation over the past month Holding anticoagulation due to hematuria Continue metoprolol and amiodarone PDMP PDMP Reviewed: Not Reviewed Attestations Medical Necessity Statement*: needs 2 more midnights due to chf Coding Level of Care Code 50364 Diagnoses Edema of left upper extremity R60.0 CAD (coronary artery disease) I25.10 Cardiac resynchronization therapy defibrillator (ELECTRONIC BENCH TECHNICIAN-D) in place Z95.810 Status post transcatheter aortic valve replacement (TAVR) using bioprosthesis Z95.3 Chronic systolic heart failure I50.22 Ventricular tachycardia, incessant I47.29 Hematuria R31.9 PAF (paroxysmal atrial fibrillation) I48.0
[2025-04-12] MEDS: metoprolol succinate ER (24 HR) 25 mg Tablet 12.5 MG PO (19:01)
[2025-04-12] MEDS: MEXILETINE 150 MG 150 EACH PO (19:01)
--- NOTE | 2025-04-12 19:50 | P.PN_ITS ---
Subjective 2 Subjective: Patient is with no hematuria but does have anasarca undergoing diuresis with very soft blood pressure systolic blood pressure this morning was in the 70s and they were getting ready to give patient Lasix and spironolactone and amiodarone parameters have been written to hold and reassess this medication for a better blood pressure of at least above 90 but most importantly for MAP 65 or greater. Creatinine is being watched and has stayed 1.7 for the past 2 days patient baseline creatinine is 0.8-0.9 Vitals/I&O/Wt Last Vital Signs Temp 97.8 F 04/12/25 19:36 Pulse 70 04/12/25 19:36 Resp 15 04/12/25 19:36 BP 106/52 04/12/25 19:36 Pulse Ox 98 04/12/25 19:36 O2 Del Method Room Air 04/12/25 19:36 O2 Flow Rate 3 04/09/25 14:30 04/12/25 04/12/25 04/12/25 06:59 14:59 22:59 Intake Total 100 / 820 700 / 700 480 / 1180 Output Total 450 / 750 850 / 850 Balance -350 / 70 700 / 700 -370 / 330 Weight last 48 hrs Weight 97.2 kg Weight 92.2 kg Physical Exam 2 Narrative: Generally patient is quiet today while visited and other family member at the bedside I have come a couple of time patient was sleeping. HEENT normocephalic atraumatic neck neck is supple cardiovascular heart rate is regular lungs are pretty much clear abdomen soft nontender nondistended unremarkable extremities are intact no edema has good pulses neurology has no focality lab studies lab studies reviewed and noted. Data 04/12/25 09:36 04/12/25 09:36 Micro: Microbiology 04/10/25 21:49 Urine Culture - Preliminary Urine,Clean Catch A&P Assessment and plan 1. Cardiomyopathy: 2. PAF (paroxysmal atrial fibrillation): 3. Hematuria: 4. Anasarca: 5. Edema of left upper extremity: 6. CAD (coronary artery disease): 7. AICD discharge: Plan: Anasarca - Patient with diuresis - Patient is having ill effects of hypotension from this leading to acute renal failure - Will initiate albumin at this time and midodrine to keep the blood pressure up and probably improve the volume status will continue to feed into the kidney Gross hematuria - Resolved, urine is very clear david urine - UA is negative for any microorganism on culture 04/08/2025 AICD discharge-resolved Patient is on amiodarone Maxiletine continued, -Case discussed with cardiology Dr. Levine the mexiletine 150 mg twice daily was obtained and patient continue with this medication. . Rate limiting step for discharge is optimization of anasarca and maintaining good renal function for this patient. Patient baseline creatinine is 0.8-0.9 now the creatinine is rising to a 1.7 in this 89-year-old. Debility -PT OT to follow-up with the patient from bedside PT as tolerated until the blood pressure comes up patient will not be able to walk across the hallway. PDMP PDMP Reviewed: Not Reviewed Attestations 2 Medical Necessity Statement*: Patient will need some few days to be optimized because of extensive anasarca and left upper extremity bruising and hematoma and swelling. Coding Level of Care Code 49301 Diagnoses Cardiomyopathy I42.9 PAF (paroxysmal atrial fibrillation) I48.0 Hematuria R31.9 Anasarca R60.1 Edema of left upper extremity R60.0 CAD (coronary artery disease) I25.10 AICD discharge Z45.02 Time Spent (min) 60
[2025-04-13] VITALS (50 sets, daily range): BP systolic 86–115; BP diastolic 52–71; PULSE 64–92; RESP 11–22; TEMP 36.4–36.8; O2SAT 89–100
[2025-04-13] MEDS: MEXILETINE 150 MG 150 EACH PO ×2 (05:35→17:16)
--- NOTE | 2025-04-13 07:48 | PC.NURSE ---
Dr Bentley notified of patient soft bp. Waws ordered to give antiarrhythmics but wait on metoprolol to give and recheck bp. BP was rechecked and still was contraindicated to give metoprolol so medicine was held per dr baez.
[2025-04-13] MEDS: FUROsemide 10 mg/mL SDV 4mL 40 MG IVP (08:36)
--- NOTE | 2025-04-13 09:34 | P.PN_ITS ---
<Statement entered by Bo Forman MD - 04/14/25 08:15> Patient was evaluated and cared for in conjunction with an advanced practice practitioner. I personally examined the patient and reviewed the chart and all pertinent data including imaging, telemetry, and laboratory results. I discussed the patient in detail with the advanced practice practitioner. Please see their note for complete H&P testing result and agreed upon plan of care for the patient. Patient states he is feeling better denies any shortness of breath no arrhythmia, left arm swelling still present with 2+ edema GENERAL: Patient is alert, awake and oriented x3. HEART: Regular S1 and S2. No murmur, rub or gallop. LUNGS: Clear to auscultate bilaterally. CENTRAL NERVOUS SYSTEM: Grossly nonfocal. EXTREMITIES: Left arm swollen bruised with 2+ edema Assessment and plan Left arm swelling most likely secondary to hematoma History of hematuria now clearing up Acute on chronic decompensated systolic heart failure now compensated Recurrent incessant VT now stable on amiodarone and mexiletine Atrial fibrillation Plan: Switch to oral diuretics, continue aspirin statin beta-jacqueline and clopidogrel. Not on anticoagulation due to hematoma and hematuria. Recent stent needs and necessitate continuation of dual antiplatelet therapy. Patient is awaiting SNF Subjective 2 Subjective: Left arm still very bruised, no DVT. Reducing metoprolol to 6.25mg BID. Continuing aspirin and Plavix, no gross hematuria. Vitals/I&O/Wt Last Vital Signs Temp 98.3 F 04/13/25 07:41 Pulse 69 04/13/25 07:41 Resp 18 04/13/25 07:41 BP 96/55 04/13/25 07:41 Pulse Ox 97 04/13/25 07:41 O2 Del Method Room Air 04/13/25 07:41 O2 Flow Rate 3 04/09/25 14:30 04/12/25 04/13/25 04/13/25 22:59 06:59 14:59 Intake Total 480 / 1380 200 / 1380 Output Total 1275 / 1825 550 / 1825 Balance -795 / -445 -350 / -445 Weight last 48 hrs Weight 212 lb 9.6 oz Weight 214 lb 4.629 oz Physical Exam 2 Const: COMMON NORMALS: no acute distress and patient oriented x3 GENERAL APPEARANCE: cooperative and comfortable ORIENTATION/CONSCIOUSNESS: Yes awake, Yes oriented to person, Yes oriented to place and Yes oriented to time Chest: COMMONS NORMALS: normal inspection of the chest and normal palpation of entire chest wall CHEST: Yes Symmetrical chest wall rise Resp: COMMON NORMALS: normal respiratory effort, No retractions, No use of accessory muscles and clear to auscultation bilaterally EFFORT & INSPECTION: Yes symmetric chest movement AUSCULTATION: clear to auscultation bilaterally Cardio: COMMON NORMALS: regular rate, regular rhythm, S1 normal heart sound present, S2 normal heart sound present, No gallops present (Cardio), No clicks present (Cardio), No murmurs present (Cardio) and No rub (Cardio) RATE: r egular rate RHYTHM: regular rhythm HEART SOUNDS: S1 normal heart sound present and S2 normal heart sound present PERIPHERAL PULSES: radial pulses present Extremity: COMMON NORMALS: no pedal edema Neuro: COMMON NORMALS: patient oriented x3 and moves all extremities S ENSORIUM/ORIENTATION: Yes oriented to person, Yes oriented to place and Yes oriented to time Data 04/12/25 09:36 04/12/25 09:36 Micro: Microbiology 04/09/25 13:35 Blood Culture - Final Blood Staphylococcus hominis 04/10/25 21:49 Urine Culture - Preliminary Urine,Clean Catch A&P Assessment and plan 1. ASHD (arteriosclerotic heart disease): 2. Cardiac resynchronization therapy defibrillator (MANAGER TRAFFIC-D) in place: 3. Status post transcatheter aortic valve replacement (TAVR) using bioprosthesis: 4. PAF (paroxysmal atrial fibrillation): 5. Ventricular tachycardia, incessant: Plan: Doing well from cardiac perspective, left arm swelling and hematoma improved. Continue amiodarone, mexiletine, changing Lasix to oral 40mg twice a day. Continue aspirin, Plavix, statin. PDMP PDMP Reviewed: Not Reviewed Attestations 2 Medical Necessity Statement*: per hospitalist Coding Level of Care Code Acute Code for g Fwd Diagnoses ASHD (arteriosclerotic heart disease) I25.10 Cardiac resynchronization therapy defibrillator (MANAGER TRAFFIC-D) in place Z95.810 Status post transcatheter aortic valve replacement (TAVR) using bioprosthesis Z95.3 PAF (paroxysmal atrial fibrillation) I48.0 Ventricular tachycardia, incessant I47.29
[2025-04-13 11:45] LABS: Hematocrit 29.4 % (37-53); Hemoglobin 9.00 g/dL (11.27-16.99); Mean Corpuscular HGB Conc 30.6 g/dL (30-55); Mean Corpuscular Hemoglobin 30.8 pg (27-33); Mean Corpuscular Volume 100.7 fl (82-101); Nucleated Red Blood Cells % 0 %; Platelet Count 106 10^3/cmm (157-399); Red Blood Count 2.92 10^6/uL (3.85-5.65); White Blood Count 6.45 10^3/uL (3.29-11.43)
[2025-04-13 11:50] LABS: Alanine Aminotransferase 14 U/L (0-41); Albumin Level 3.9 g/dL (3.5-5.2); Alkaline Phosphatase 175 U/L (40-130); Anion Gap 19.2 (5-19); Aspartate Amino Transferase 19 U/L (0-40); Blood Urea Nitrogen 51 mg/dL (8-23); Calcium 8.2 mg/dL (8.5-10.5); Carbon Dioxide 17 mmol/L (22-29); Chloride 101 mmol/L (98-107); Creatinine Clr Calc Pharmacy 33.7473; Globulin 2.6 g/dL (1.3-4.6); Glucose 98 mg/dL (65-115); Osmolality Calculated 290 mOsm/kg (285-295); Potassium 4.2 mmol/L (3.5-5.1); Sodium 133 mmol/L (136-145); Total Protein 6.5 g/dL (6.6-8.7)
[2025-04-13] MEDS: albumin 25 G/100 ML BAG 60 G IV (12:09)
--- NOTE | 2025-04-13 16:15 | PC.NURSE ---
pt's left arm remains swollen and discolored...but has much improved since this nurse examined him 3 days ago.Arm is soft to touch and less discolored and less swollen.pt denies pain in arm.palpable radial pulse noted.left arm is elevated on pillows.
--- NOTE | 2025-04-13 16:22 | P.PN_ITS ---
Subjective 2 Subjective: Patient is with interval improvement of the left upper extremity edema and hematoma and overall anasarca. Patient is in ATN with creatinine for age at 1.7 patient baseline creatinine 0.8-0.9 as of last month creatinine has stayed consistent at 1.7 over the past 2 to 3 days cardiology wants to continue these IV Lasix high-dose at 40 twice daily Vitals/I&O/Wt Last Vital Signs Temp 98.3 F 04/13/25 16:00 Pulse 69 04/13/25 16:00 Resp 14 04/13/25 16:00 BP 91/68 04/13/25 16:00 Pulse Ox 96 04/13/25 16:00 O2 Del Method Room Air 04/13/25 16:00 O2 Flow Rate 3 04/09/25 14:30 04/13/25 04/13/25 04/13/25 06:59 14:59 22:59 Intake Total 200 / 1380 720 / 720 Output Total 550 / 1825 350 / 350 Balance -350 / -445 370 / 370 Weight last 48 hrs Weight 96.434 kg Weight 97.2 kg Physical Exam 2 Narrative: Generally patient is calm and quiet today hematuria had been resolved for the past 2 to 3 days HEENT normocephalic atraumatic neck neck is supple cardiovascular heart rate is regular lungs are pretty much clear abdomen soft nontender nondistended unremarkable extremities are intact no edema has good pulses neurology has no focality lab studies lab studies reviewed and noted. Data 04/13/25 11:12 04/13/25 11:12 Micro: Microbiology 04/10/25 21:49 Urine Culture - Final Urine,Clean Catch 04/09/25 13:35 Blood Culture - Final Blood Staphylococcus hominis A&P Assessment and plan 1. Cardiomyopathy: 2. PAF (paroxysmal atrial fibrillation): 3. Hematuria: 4. Anasarca: 5. Edema of left upper extremity: 6. Hematuria: 7. Acute renal failure: 8. CAD (coronary artery disease): Plan: Anasarca with significant left upper extremity edema and hematoma - Anasarca is improving responding to diuresis - Left upper extremity edema and hematoma is improving - Rate limiting step here is that patient is now in ATN for age with a creatinine of 1.7 from a baseline of 0.8-0.9 as of the last 1 month - Patient blood pressure is soft cardiology like patient to be on high-dose diuretics of 40 mg twice daily - Must protect renal function like to decrease diuresis as patient is responding - Patient has been converted to oral Lasix at 40 once daily today - Family change mild that he needs to go to short-term skilled care and then come home - As of yesterday and patient like to be home to get the and have home with home health - If they have a skilled care that can take him tomorrow then he goes Atrial fibrillation - Continue amnio, beta-jacqueline - In sinus - Off Eliquis because of left upper extremity hematoma and swelling Coronary artery disease -Status post stent placement last month to proximal and mid LAD - Must be on Plavix and aspirin and this is continued AICD discharges -This has resolved - Patient had discharges of VT tach and V-fib and manage with treating the coronary artery disease and Medical management of incessant slow V. tach V-fib with metoprolol and mexiletine Hematuria--- resolved Disposition -Short-term skilled to get stronger prior to going home with home care as a plan PDMP PDMP Reviewed: Not Reviewed Attestations 2 Medical Necessity Statement*: Patient needs another day for oral Lasix transition to go to SNF care as a new change by the family Coding Level of Care Code 30828 Diagnoses Cardiomyopathy I42.9 PAF (paroxysmal atrial fibrillation) I48.0 Hematuria R31.9 Anasarca R60.1 Edema of left upper extremity R60.0 Acute renal failure N17.9 CAD (coronary artery disease) I25.10 Time Spent (min) 60
[2025-04-13] MEDS: metoprolol succinate ER (24 HR) 25 mg Tablet 6.25 MG PO (17:17)
[2025-04-13] MEDS: dorzolamide 2% Op Soln 10 mL Btl 1 DROP EYE-BOTH (17:41)
[2025-04-14] VITALS (8 sets, daily range): BP systolic 91–127; BP diastolic 56–78; PULSE 60–205; RESP 12–19; TEMP 36.1–36.9; O2SAT 96–100
--- NOTE | 2025-04-14 04:44 | PC.NURSE ---
Patient started having hematuria in his lacy catheter. Dr Crouch was notified and an order for CBI was placed. Maximo Houston and Lulu GREENE replaced patient catheter and irrigated bladder to remove clots and then started the CBI. Patient tolerated procedure with no issues. CBI was started at 00:00 and has ran continuously. CBI has been documented per CBI documentation. Dr Bentley was notified for pain medication for patient for procedure. New orders were placed per Dr. Bentley.
[2025-04-14] MEDS: metoprolol succinate ER (24 HR) 25 mg Tablet 6.25 MG PO ×2 (05:08→17:51)
[2025-04-14] MEDS: MEXILETINE 150 MG 150 EACH PO ×2 (05:08→17:50)
[2025-04-14] MEDS: dorzolamide 2% Op Soln 10 mL Btl 1 DROP EYE-BOTH ×2 (05:08→17:51)
--- NOTE | 2025-04-14 05:31 | PC.NURSE ---
1 cbi 3000ml bag 2 ns 1000ml bags = 5000ml
--- NOTE | 2025-04-14 08:04 | US_ITS ---
WS: [id number] ULTRASOUND SOFT TISSUES perineum. HISTORY: Swelling around the penis possible abscess. COMPARISON: 03/25/2025 TECHNIQUE: 2-D and color Doppler imaging is submitted. The amount of soft tissue edema around the base of the penis and surrounding the penis has improved since the prior study. There is continued diffuse edema and soft tissue swelling but no fluid collection. US/US soft tissue/extremity [id number] IMPRESSION: Limited evaluation of soft tissues around the penis. No abscess identified. The re is continued diffuse soft tissue edema.
--- NOTE | 2025-04-14 08:04 | PC.NURSE ---
Patient having swelling to genital area that can be expressed by applied pressure, fluid is pink tinged and dime size clots can be expressed provider notified instructions received to obtain a soft tissue ultra sound
--- NOTE | 2025-04-14 08:44 | P.PN_ITS ---
<Statement entered by Bo Forman MD - 04/14/25 20:28> Patient was evaluated and cared for in conjunction with an advanced practice practitioner. I personally examined the patient and reviewed the chart and all pertinent data including imaging, telemetry, and laboratory results. I discussed the patient in detail with the advanced practice practitioner. Please see their note for complete H&P testing result and agreed upon plan of care for the patient. Patient developed hematuria and there is worsening He also has hematoma of the left arm which is improving GENERAL: Patient is alert, awake and oriented x3. Left arm hematoma with discoloration of hand and arm HEART: Regular S1 and S2. No murmur, rub or gallop. LUNGS: Clear to auscultate bilaterally. CENTRAL NERVOUS SYSTEM: Grossly nonfocal. History of coronary artery disease status post recent drug-eluting stent couple weeks ago History of incessant VT currently under control no more VT Atrial fibrillation Acute decompensated systolic heart failure now compensated Chronic kidney disease Given continuous hematuria hematoma of the left arm and penis it appeared to me patient has possible dysfunctional platelets given his comorbidities and advanced age Eliquis was already stopped despite of that he continues to have hematuria, he will be transferred to urology From a cardiovascular perspective discontinue aspirin continue Plavix given he has recent stents Risk of bleeding overweighs the benefit for stroke in case of atrial fibrillation and stent placement Subjective 2 Subjective: He began having hematuria again last night, CBI started. Pending transfer for urology evaluation. No chest pain. Left arm still bruised and swollen. No VT or other arrhythmias noted. Vitals/I&O/Wt Last Vital Signs Temp 96.9 F L 04/14/25 07:04 Pulse 73 04/14/25 07:04 Resp 19 H 04/14/25 07:04 BP 112/78 04/14/25 07:04 Pulse Ox 98 04/14/25 07:04 O2 Del Method Room Air 04/14/25 04:00 O2 Flow Rate 3 04/09/25 14:30 04/13/25 04/14/25 04/14/25 22:59 06:59 14:59 Intake Total 240 / 1540 480 / 1540 Output Total 200 / 2425 1875 / 2425 Balance 40 / -885 -1395 / -885 Weight last 48 hrs Weight 214 lb 11.684 oz Weight 212 lb 9.6 oz Physical Exam 2 Const: COMMON NORMALS: no acute distress and patient oriented x3 GENERAL APPEARANCE: cooperative and comfortable ORIENTATION/CONSCIOUSNESS: Yes awake, Yes oriented to person, Yes oriented to place and Yes oriented to time Chest: COMMONS NORMALS: normal inspection of the chest and normal palpation of entire chest wall CHEST: Yes Symmetrical chest wall rise Resp: COMMON NORMALS: normal respiratory effort, No retractions, No use of accessory muscles and clear to auscultation bilaterally EFFORT & INSPECTION: Yes symmetric chest movement AUSCULTATION: clear to auscultation bilaterally Cardio: COMMON NORMALS: regular rate, regular rhythm, S1 normal heart sound present, S2 normal heart sound present, No gallops present (Cardio), No clicks present (Cardio), No murmurs present (Cardio) and No rub (Cardio) RATE: r egular rate RHYTHM: regular rhythm HEART SOUNDS: S1 normal heart sound present and S2 normal heart sound present PERIPHERAL PULSES: radial pulses present Extremity: COMMON NORMALS: no pedal edema Neuro: COMMON NORMALS: patient oriented x3 and moves all extremities S ENSORIUM/ORIENTATION: Yes oriented to person, Yes oriented to place and Yes oriented to time Data 04/13/25 11:12 04/13/25 11:12 Micro: Microbiology 04/10/25 21:49 Urine Culture - Final Urine,Clean Catch 04/09/25 13:35 Blood Culture - Final Blood Staphylococcus hominis A&P Assessment and plan 1. CAD (coronary artery disease): 2. 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 Status post transcatheter aortic valve replacement (TAVR) using bioprosthesis: 4. Chronic systolic heart failure: 5. PAF (paroxysmal atrial fibrillation): Plan: Agree with transfer for repeat episode of gross hematuria. He requires continued antiplatelet therapy due to recent stents to OM and circumflex on 03/19/25. Rhythm is stable, continue amiodarone, mexiletine, metoprolol, statin. Blood pressure stable on midodrine. 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
--- NOTE | 2025-04-14 08:48 | PC.NURSE ---
Family updated on patients current condition all questions answered
--- NOTE | 2025-04-14 10:51 | PC.SOCIAL ---
IMM Update pg 2 of IMM Updated and reviewed w/ patient. Copy provided and copy dated, initialed and placed in chart.
--- NOTE | 2025-04-14 13:46 | PC.NURSE ---
spoke with provider about concerns for patients blood pressure and administraion of 0900 lasix instructions received to hold unless systolic was above 100 non admin the medication 5 hours later due to bp staying under 100 systolic will reassess at next dose
--- NOTE | 2025-04-14 18:37 | P.TS_ITS ---
Transfer Summary Providers Date of Admission: 04/09/25 16:47 Date of Discharge/Transfer: 04/14/25 Attending Provider at Admission: Marti Courtney MD Attending Provider at Transfer: Ruth Trivedi MD Primary Care Provider: Lizbeth Berrios MD Transfer Plans: Anticipated date of transfer: 04/14/25 . Diagnoses at Discharge Discharge Diagnosis 1. CAD (coronary artery disease): 2. Cardiac resynchronization therapy defibrillator ([employer] HAY SORTER-D) in place: 3. Status post transcatheter aortic valve replacement (TAVR) using bioprosthesis: 4. Chronic systolic heart failure: 5. PAF (paroxysmal atrial fibrillation): Reason for Visit Reason for Visit L arm and hand black swelling blood in uraine Brief History: As per previous notes and the patient Tank Saavedra is a 89 year old male with past medical history of atrial fibrillation, cardiomyopathy, s/p [employer] HAY SORTER-D , A fib, systolic CHF (LVEF 37%), status post TAVR, CAD status post CABG . He was recently admitted here between Mar 17- 03/26 after having been shocked by his [employer] HAY SORTER-D multiple times. He was taken to school laboratory technician for incessant VT which showed multivessel disease. He underwent PCI to mid obtuse marginal with a drug-eluting stent and PCI to mid circumflex with drug-eluting stent. His heart rate was maintained on amiodarone, metoprolol and Mexiletene. VT eventually resolved. He had been started on aspirin and Plavix afterwards and was on full dose lovenox given A fib however hospital course was complicated by gross hematuria for which he eventually required transfer to [facility] where his states he had several procedures , presumably cytoscopy following which hematuria resolved and he was discharged. He has not been taking Plavix or lasix since discharge since he did not have prescriptions for these meds. He followed with Dr. Forman and was found to have anasarca for which he was directed to the ER. He had been in the ER since his lacy cath had stopped draining urine after having been replaced at [facility] just a day prior. a new lacy was placed in the ER. He was found to have LUE ecchymosis additionally. Hospital Course Hospital Course Patient was also found to have ATN with a creatinine of 1.7 which increased from baseline 0.8-0.9. His left upper extremity ecchymosis is secondary to hematoma that is currently getting better. Cardiology on board recommended to continue with dual antiplatelet therapy considering he has recent stents to OM and circumflex on 03/19/2025. And also mentioned as the rhythm is stable therefore to continue amiodarone mexiletine metoprolol based on the blood pressure. And to continue on midodrine as well. However the patient is having intermittent hematuria and such bleeding episodes therefore a thorough discussion with the smt machine operator was performed and advised that the patient to continue only on Plavix and to hold aspirin. Patient platelets are low and there might be a possibility that the platelets are not having aggregation/thrombus forming quality performance that could be the reason of his ongoing intermittent bleeding episodes. The bleeding episodes carries high risk which also include intracranial or life-threatening intra-abdominal bleed therefore based on the benefits and risk patient to be kept on single antiplatelet agent which is Plavix. And therefore to continue further for monitoring of any further hematomas or bleeding episodes. He was diuresed during his hospital stay later on after euvolemic state is IV from converted to oral Lasix. The patient was having hematuria intermittently and was placed on bladder irrigation by the previous managing hospitalist. Today while taking care and noticed some penile swelling while hematuria was clearing. The penile swelling was concerning therefore called urology initially at [facility] and then called [facility] considering bed availability and urologist. After thorough discussion with on-call urologist/hospitalist and need of urologist on board for the management of penile swelling with on and off no hematuria and also with the family the transfer was initiated to [facility]. Patient in terms of his anasarca/cardiomyopathy/atrial fibrillation is getting better and is stable. And looking forward for short-term [facility]entiary home versus home care with plan for patient disposition after he stabilized from his ongoing urology and cardiac issues. Patient medications reconciled after discussion with the cardiology and doses adjusted as per inpatient plans and further to improvised according to patient's hemodynamics and clinical status. Patient condition has been discussed at length with the patient/family, I have independently reviewed the chart labs imaging/diagnostics/EKG. the goals of care and code status with the patient/family/NOK/legal customer sales representative, and documented accordingly. The patient/family has been informed about the current condition and further plan of care. Agreed with the plan of care and understood without any language barrier. Every effort was made to ensure accuracy of sorter/assay tech. Any obvious errors or omissions should be clarified with the author of the document. Physical Exam Narrative: General: Alert and oriented, lying comfortably without any distress at room air HEENT: Normocephalic, atraumatic, grossly unremarkable exam Cardio: normal rate rhythm, normal S1-S2 without any murmurs, rubs, or gallops and JVD normal Respiratory: normal vascular breathing with mild crackles at the bases without wheezes or stridor GI: Abdomen soft, nontender, nondistended, normoactive bowel sounds present all 4 quadrants, Neuro: intact cranial nerves motor and sensory and cerebellar/coordination function without any focal neurological deficit Behavior: Appropriate and cooperative Extremities: Adequate palpable pulses, gross edema/hematoma with bruising of the left upper extremity currently subsiding, peripheral pulses adequately palpable and no limitation of the range of motion. Mild trace pedal edema appreciated. TS Data Studies Completed and Pending Pending at discharge Category Date Time Status CBC Auto Diff [Complete Blood Count w/Auto] AM LABS Lab 04/15/25 04:00 Ordered CMP [Comprehensive Metabolic Panel] AM LABS Lab 04/15/25 04:00 Ordered US soft tissue and or extremity [US soft tissue/ Ultrasound 04/14/25 08:04 Taken extremity [id number]] Routine Completed Studies During Hospitalization Category Date Time Status XR chest 1V portable [id number] Stat Exams 04/09/25 12:34 Completed US venous duplex upper extremity LT [CV venous duplex Ultrasound 04/09/25 12:33 [place] [id number]] Stat Laboratory Last Values WBC 6.45 10^3/uL (3.29-11.43) 04/13/25 11:12 RBC 2.92 10^6/uL (3.85-5.65) L 04/13/25 11:12 Hgb 9.00 g/dL (11.27-16.99) L 04/13/25 11:12 Hct 29.4 % (37-53) L 04/13/25 11:12 MCV 100.7 fl (82-101) 04/13/25 11:12 MCH 30.8 pg (27-33) 04/13/25 11:12 MCHC 30.6 g/dL (30-55) D 04/13/25 11:12 RDW 18.7 % (12.1-15.1) H 04/13/25 11:12 Plt Count 106 10^3/cmm (157-399) L 04/13/25 11:12 MPV 12.2 fL (7.4-10.4) H 04/13/25 11:12 Neut % (Auto) 69.4 % 04/13/25 11:12 Lymph % (Auto) 10.4 % 04/13/25 11:12 Yancey % (Auto) 11.3 % 04/13/25 11:12 Eos % (Auto) 8.1 % 04/13/25 11:12 Baso % (Auto) 0.5 % 04/13/25 11:12 Neut # (Auto) 4.48 10^3/uL (1.8-7.7) 04/13/25 11:12 Lymph # (Auto) 0.7 10^3/uL (0.8-4.8) L 04/13/25 11:12 Yancey # (Auto) 0.7 10^3/uL (0.2-0.9) 04/13/25 11:12 Eos # (Auto) 0.5 10^3/uL (0.0-0.8) 04/13/25 11:12 Baso # (Auto) 0.0 10^3/uL (0.0-0.1) 04/13/25 11:12 Nucleated RBC % (auto) 0 % 04/13/25 11:12 Nucleated RBCs # 0.0 /100WBC 04/13/25 11:12 Sodium 133 mmol/L (136-145) L 04/13/25 11:12 Potassium 4.2 mmol/L (3.5-5.1) 04/13/25 11:12 Chloride 101 mmol/L (98-107) 04/13/25 11:12 Carbon Dioxide 17 mmol/L (22-29) L 04/13/25 11:12 Anion Gap 19.2 (5-19) H 04/13/25 11:12 BUN 51 mg/dL (8-23) H 04/13/25 11:12 Creatinine 1.7 mg/dL (0.7-1.2) H 04/13/25 11:12 GFR Calculation Not Reportable 04/13/25 11:12 Glucose 98 mg/dL (65-115) 04/13/25 11:12 Calculated Osmolality 290 mOsm/kg (285-295) 04/13/25 11:12 Lactic Acid 1.5 mmol/L (0.5-2.2) 04/09/25 13:35 Calcium 8.2 mg/dL (8.5-10.5) L 04/13/25 11:12 Total Bilirubin 1.6 mg/dL (0.15-1.2) H 04/13/25 11:12 AST 19 U/L (0-40) 04/13/25 11:12 ALT 14 U/L (0-41) 04/13/25 11:12 Alkaline Phosphatase 175 U/L (40-130) H 04/13/25 11:12 Troponin T Baseline 36 ng/L (0-15) H 04/09/25 13:35 Troponin T 120 Minute 30.66 ng/L (0-15) H 04/09/25 15:49 Delta Troponin T -5.34 ABS# (0-10) L 04/09/25 15:49 Troponin T Hi Sens 6Hr 31.01 ng/L (0-15) H 04/09/25 20:19 Troponin T Hi Sens 6Hr Delta -4.99 ng/L (0-12) L 04/09/25 20:19 NT-Pro-B Natriuret Pep 1238 pg/mL (0-450) H 04/09/25 13:35 Total Protein 6.5 g/dL (6.6-8.7) L 04/13/25 11:12 Albumin 3.9 g/dL (3.5-5.2) 04/13/25 11:12 Globulin 2.6 g/dL (1.3-4.6) 04/13/25 11:12 Urine Color Yellow (Yellow) 04/10/25 21:49 Urine Appearance Slightly cloudy (CLEAR) 04/10/25 21:49 Urine pH 5 (5-7) 04/10/25 21:49 Ur Specific [place] 1.020 (1.005-1.030) 04/10/25 21:49 Urine Protein 2+ (Negative) H 04/10/25 21:49 Urine Glucose (UA) Norm (Normal) 04/10/25 21:49 Urine Ketones Negative (Negative) 04/10/25 21:49 Urine Blood 3+ (Negative) H 04/10/25 21:49 Urine Nitrate Negative (Negative) 04/10/25 21:49 Urine Bilirubin Neg (Negative) 04/10/25 21:49 Urine Urobilinogen Neg mg/dL (Negative) 04/10/25 21:49 Ur Leukocyte Esterase 1+ (Negative) H 04/10/25 21:49 Urine RBC 80-100 /hpf (0-2) H 04/10/25 21:49 Urine WBC 21-50 /hpf (0-5) H 04/10/25 21:49 Ur Squamous Epith Cells 3-5 /hpf (0-5) 04/10/25 21:49 Amorphous Sediment Not Reportable 04/10/25 21:49 Urine Bacteria 1+ /hpf (NONE) H 04/10/25 21:49 Hyaline Casts 10-15 /lpf H 04/10/25 21:49 Fine Granular Casts 5-10 /lpf H 04/10/25 21:49 Coarse Granular Casts 0-4 /lpf H 04/10/25 21:49 Radiology Impressions Chest X-Ray 04/09/25 12:34 IMPRESSION: Stable chest without acute abnormality. Recent Clincial Data Last Vital Signs Temp 98.1 F 04/14/25 11:37 Pulse 69 04/14/25 16:09 Resp 18 04/14/25 16:09 BP 127/68 04/14/25 16:09 Pulse Ox 99 04/14/25 16:09 O2 Del Method Room Air 04/14/25 04:00 O2 Flow Rate 3 04/09/25 14:30 Vital Signs Temp Pulse Resp BP Pulse Ox 04/14/25 16:09 69 18 127/68 99 04/14/25 14:00 60 04/14/25 11:37 98.1 F 70 15 97/64 99 04/14/25 07:04 96.9 F L 73 19 H 112/78 98 Intake & Output/Weight 04/12/25 04/13/25 04/14/25 04/15/25 06:59 06:59 06:59 06:59 Intake Total 820 / 820 1380 / 1380 1540 / 1540 1075 / 1075 Output Total 750 / 750 1825 / 1825 2425 / 2425 Balance 70 / 70 -445 / -445 -885 / -885 1075 / 1075 Weight 97.2 kg 96.434 kg 97.4 kg Vitals Last Vital Signs Temp 98.1 F 04/14/25 11:37 Pulse 69 04/14/25 16:09 Resp 18 04/14/25 16:09 BP 127/68 04/14/25 16:09 Pulse Ox 99 04/14/25 16:09 O2 Del Method Room Air 04/14/25 04:00 O2 Flow Rate 3 04/09/25 14:30 TS Medications Medications Acetaminophen (Acetaminophen 325 Mg Tablet) 650 mg PO Q6H PRN PRN Reason: Mild/Mod Pain Or Temp >/= 101 Hydrocodone Bitart/Acetaminophen (Hydrocodone-Acetaminophen 5-325 Mg Tablet) 1 tab PO Q4H PRN PRN Reason: MODERATE PAIN Stop: 04/17/25 00:14 Amiodarone HCl (Amiodarone 200 Mg Tablet) 400 mg PO DAILY [facility] Last Admin: 04/14/25 05:07 Dose: 400 mg Aspirin (Aspirin 81 Mg Ec Tablet) 81 mg PO DAILY [facility] Last Admin: 04/14/25 05:07 Dose: 81 mg Atorvastatin Calcium (Atorvastatin 40 Mg Tablet) 40 mg PO DAILY@1900 [facility] Last Admin: 04/14/25 17:53 Dose: 40 mg Clopidogrel Bisulfate (Clopidogrel 75 Mg Tablet) 75 mg PO DAILY [facility] Last Admin: 04/14/25 05:07 Dose: 75 mg Dorzolamide HCl (Dorzolamide 2% Op Soln 10 Ml Btl) 1 drop EYE-BOTH BID [facility] Last Admin: 04/14/25 17:51 Dose: 1 drop Furosemide (Furosemide 40 Mg Tablet) 40 mg PO BID@08,16 [facility] Last Admin: 04/14/25 17:51 Dose: 40 mg Levothyroxine Sodium (Levothyroxine 150 Mcg Tablet) 150 mcg PO DAILY [facility] Last Admin: 04/14/25 05:07 Dose: 150 mcg Metoprolol Succinate (Metoprolol Succinate Er (24 Hr) 25 Mg Tablet) 6.25 mg PO BID [facility] Last Admin: 04/14/25 17:51 Dose: 6.25 mg Midodrine (Midodrine 5 Mg Tablet) 5 mg PO TID [facility] Last Admin: 04/14/25 13:48 Dose: 5 mg Morphine Sulfate (Morphine 4 Mg/Ml Sdv 1 Ml) 2 mg IVP Q4H PRN PRN Reason: SEVERE PAIN Non-Formulary Medication (Mexiletine) 150 mg PO BID [facility] Last Admin: 04/14/25 17:50 Dose: 150 mg Ondansetron HCl (Ondansetron 2 Mg/Ml Sdv 2 Ml) 4 mg IVP Q8H PRN PRN Reason: vomiting, or N/V if npo Pantoprazole Sodium (Pantoprazole Dr 40 Mg Tablet) 40 mg PO DAILY [facility] Last Admin: 04/14/25 05:07 Dose: 40 mg Tamsulosin HCl (Tamsulosin 0.4 Mg Capsule) 0.4 mg PO BEDTIME@1900 [facility] Last Admin: 04/14/25 17:53 Dose: 0.4 mg Discontinued Medications Aspirin (Aspirin 81 Mg Ec Tablet) 81 mg PO DAILY [facility] Last Admin: 04/13/25 05:35 Dose: 81 mg Furosemide (Furosemide 10 Mg/Ml Sdv 4ml) 40 mg IVP ONCE ONE Stop: 04/09/25 17:45 Last Admin: 04/09/25 17:55 Dose: 40 mg Furosemide (Furosemide 10 Mg/Ml Sdv 4ml) 40 mg IVP Q12H [facility] Last Admin: 04/10/25 23:40 Dose: 40 mg Furosemide (Furosemide 10 Mg/Ml Sdv 4ml) 40 mg IVP Q24H [facility] Furosemide (Furosemide 10 Mg/Ml Sdv 4ml) 40 mg IVP Q12H [facility] Last Admin: 04/12/25 14:11 Dose: 40 mg Furosemide (Furosemide 10 Mg/Ml Sdv 4ml) 40 mg IVP Q12H [facility] Last Admin: 04/13/25 08:36 Dose: 40 mg Albumin Human (Albumin) 25 g in 100 mls @ 60 mls/hr IV Q12H [facility] Last Infusion: 04/13/25 13:50 Dose: Infused Metoprolol Succinate (Metoprolol Succinate Er (24 Hr) 25 Mg Tablet) 12.5 mg PO BID [facility] Last Admin: 04/13/25 07:48 Dose: Not Given Allergies fenofibrate Allergy (Unknown, Verified 02/09/25 15:27) Unknown levofloxacin Allergy (Unknown, Verified 02/09/25 15:27) Unknown niacin Allergy (Unknown, Verified 02/09/25 15:27) Unknown Home Medications loratadine 10 mg tablet (Claritin) 10 mg PO BEDTIME@1900 03/22/21 [History Confirmed 04/09/25] ascorbic acid (vitamin C) 1,000 mg tablet 1 g PO BID@0700,1900 01/17/21 [History Confirmed 04/09/25] cholecalciferol (vitamin D3) 25 mcg (1,000 unit) capsule 25 mcg PO DAILY 12/21/21 [History Confirmed 04/09/25] lutein 25 mg-zeaxanthin 5 mg capsule 1 cap PO DAILY 12/26/21 [History Confirmed 04/09/25] tamsulosin 0.4 mg capsule 0.4 mg PO BEDTIME@1900 #90 caps 02/20/22 [Rx Confirmed 04/09/25] atorvastatin 40 mg tablet 40 mg PO DAILY@1900 #90 tabs 03/01/22 [Rx Confirmed 04/09/25] levothyroxine 150 mcg tablet (Euthyrox) 150 mcg PO DAILY #90 tabs 03/05/22 [Rx Confirmed 04/09/25] methenamine hippurate 1 gram tablet See Rx Instructions .Route .COMPLEX #60 tabs 09/05/22 [Rx Confirmed 04/09/25] nitroglycerin 0.4 mg sublingual tablet (Nitrostat) 0.4 mg sublingual Q5M PRN Chest Pain #30 tabs 09/13/22 [Rx Confirmed 04/09/25] triamcinolone acetonide 55 mcg nasal spray aerosol (Nasacort) 2 spray intranasal DAILY PRN allergies 04/08/23 [History Confirmed 04/09/25] dorzolamide 22.3 mg-timolol 6.8 mg/mL eye drops 1 drp ophthalmic (eye) BID 05/06/24 [History Confirmed 04/09/25] spironolactone 25 mg tablet 12.5 mg (1/2 x 25 mg) PO DAILY #90 tabs 05/29/24 [Rx Confirmed 04/09/25] lycopene 10 mg capsule 15 mg PO DAILY@0700 10/28/24 [History Confirmed 04/09/25] metoprolol succinate 25 mg tablet,extended release 24 hr 12.5 mg (1/2 x 25 mg) PO BID #45 tabs 03/16/25 [Rx Confirmed 04/09/25] sacubitril 49 mg-valsartan 51 mg tablet (Entresto) 0.5 tab PO BID #120 tabs 03/16/25 [Rx Confirmed 04/09/25] furosemide 20 mg tablet 20 mg PO DAILY 03/17/25 [History Confirmed 04/09/25] omega-3 fatty acids 1,000 mg capsule 1,000 mg PO DAILY 03/17/25 [History Confirmed 04/09/25] amiodarone 400 mg tablet 400 mg PO DAILY #90 tabs 04/06/25 [Rx Confirmed 04/09/25] clopidogrel 75 mg tablet (Plavix) 75 mg PO DAILY #90 tabs 04/06/25 [Rx Confirmed 04/09/25] mexiletine 150 mg capsule 150 mg PO BID 04/08/25 [History Confirmed 04/09/25] Discharge Plan Discharge Patient Disposition: Xfer Other Condition: Stable Prescriptions: New pantoprazole 40 mg Tablet,Delayed Release (Dr/Ec) 40 mg PO DAILY 60 Days Qty: 60 0RF furosemide 40 mg Tablet 40 mg PO BID@08,16 60 Days Qty: 120 0RF midodrine 5 mg Tablet 5 mg PO TID 60 Days Qty: 180 0RF metoprolol succinate 25 mg Tablet Extended Release 24 Hr 6.25 mg PO BID 60 Days Qty: 30 0RF Continued ascorbic acid (vitamin C) 1,000 mg tablet 1 g PO BID@0700,1900 lycopene 10 mg capsule 15 mg PO DAILY@0700 loratadine [Claritin] 10 mg tablet 10 mg PO BEDTIME@1900 lutein-zeaxanthin 25-5 mg capsule 1 cap PO DAILY dorzolamide-timolol 22.3-6.8 mg/mL drops 1 drp ophthalmic (eye) BID cholecalciferol (vitamin D3) 25 mcg (1,000 unit) capsule 25 mcg PO DAILY triamcinolone acetonide [Nasacort] 55 mcg aerosol,spray 2 spray intranasal DAILY PRN (Reason: allergies) Rx Instructions: administer into each nostril nitroglycerin [Nitrostat] 0.4 mg tablet, sublingual 0.4 mg SUBLINGUAL Q5M PRN (Reason: Chest Pain) Qty: 30 2RF spironolactone 25 mg tablet 12.5 mg PO DAILY Qty: 90 3RF tamsulosin 0.4 mg capsule 0.4 mg PO BEDTIME@1900 Qty: 90 3RF atorvastatin 40 mg tablet 40 mg PO DAILY@1900 Qty: 90 4RF levothyroxine [Euthyrox] 150 mcg tablet 150 mcg PO DAILY Qty: 90 0RF methenamine hippurate 1 gram tablet See Rx Instructions .ROUTE .COMPLEX Qty: 60 6RF Dose Instruction: TAKE 1 TABLET BY MOUTH TWICE DAILY, TAKE EACH DOSE WITH 1000 MG OF VITAMIN C Rx Instructions: TAKE 1 TABLET BY MOUTH TWICE DAILY, TAKE EACH DOSE WITH 1000 MG OF VITAMIN C sacubitril-valsartan [Entresto] 49-51 mg tablet 0.5 tab PO BID Qty: 120 0RF amiodarone 400 mg tablet 400 mg PO DAILY Qty: 90 1RF clopidogrel [Plavix] 75 mg tablet 75 mg PO DAILY Qty: 90 3RF mexiletine 150 mg capsule 150 mg PO BID omega-3 fatty acids 1,000 mg Capsule 1,000 mg PO DAILY Discontinued metoprolol succinate 25 mg tablet extended release 24 hr 12.5 mg PO BID Qty: 45 3RF furosemide 20 mg tablet 20 mg PO DAILY Human Machine Interface Engineer [place] for DC: Cardiology Referrals: Lizbeth Berrios MD [Primary Care Provider, Internal Medicine] - 04/20/25 9:30 am Discharge Diet: Advance as tolerated and Usual diet Discharge Activity: Resume usual activity, Increase activity as tolerated and Limit activity as instructed Patient Instructions: Opioid Safety, Patient Portal & [facility] Instructions Transfer Attestations Time Spent in Transfer Care: greater than 30 min Specific Discharge Activities: educating patient, educating and/or supporting family/caregiver, discussing with pcp/other providers, discussing with manager of case/social workers/dc planners, documenting/other paperwork and evaluating patient/reviewing data Status at Transfer: Cognitive status at transfer: moderately impaired cognition ; Behavioral status at transfer: cooperative ; Functional status at transfer: other assisted ambulation ; Overall status at transfer: patient is progressing back to baseline Quality Metrics Clinical Quality Measures [ No reported AMI, CVA or VTE this stay] Coding Level of Care Code 91419 Diagnoses CAD (coronary artery disease) I25.10 Cardiac resynchronization therapy defibrillator ([employer] HAY SORTER-D) in place Z95.810 Status post transcatheter aortic valve replacement (TAVR) using bioprosthesis Z95.3 Chronic systolic heart failure I50.22 PAF (paroxysmal atrial fibrillation) I48.0
== END 2025-04-14 18:45 | disposition short-term general hospital (02) | DRG 291 ==
LOC: ER 15:03 → ER IP 16:47 → CSU 18:00
PROVIDERS: Internal Medicine; Admitting Provider Student in an Organized Health Care Education/Training Program; Emergency Provider Emergency Medicine; PCP Internal Medicine; Visit Provider Student in an Organized Health Care Education/Training Program
DX: I13.0 Hypertensive heart and chronic kidney disease with heart failure and stage 1 through stage 4 chronic kidney disease, or unspecified chronic kidney disease (principal); I50.23 Acute on chronic systolic (congestive) heart failure; N17.0 Acute kidney failure with tubular necrosis; N18.9 Chronic kidney disease, unspecified; I25.10 Atherosclerotic heart disease of native coronary artery without angina pectoris; I48.0 Paroxysmal atrial fibrillation; R31.9 Hematuria, unspecified; S40.022A Contusion of left upper arm, initial encounter; X58.XXXA Exposure to other specified factors, initial encounter; R22.2 Localized swelling, mass and lump, trunk; I42.9 Cardiomyopathy, unspecified; I49.5 Sick sinus syndrome; N40.0 Benign prostatic hyperplasia without lower urinary tract symptoms; E78.5 Hyperlipidemia, unspecified; E03.9 Hypothyroidism, unspecified; R53.81 Other malaise; Z95.0 Presence of cardiac pacemaker; Z95.2 Presence of prosthetic heart valve; Z95.1 Presence of aortocoronary bypass graft; Z95.5 Presence of coronary angioplasty implant and graft; Z79.02 Long term (current) use of antithrombotics/antiplatelets
CPT/HCPCS: 36415; 51798; 71045; 76882; 80048; 80053; 81001; 83605; 83880; 84484; 85025; 87040; 87077; 87086; 87150; 87186; 87205; 93005; 93971; 96374; 97161; 97530; 99283; 99285; J1938; J9999; P9046

== ENCOUNTER 2025-04-23 11:54 | Outpatient (CLI) | payer MEDICARE, SELFPAY ==
[2025-04-23 12:42] LABS: Anion Gap 21.1 (5-19); Blood Urea Nitrogen 71 mg/dL (8-23); Calcium 9.0 mg/dL (8.5-10.5); Carbon Dioxide 18 mmol/L (22-29); Chloride 99 mmol/L (98-107); Glucose 105 mg/dL (65-115); NT Pro B Type Natriuretic Pept 2017 pg/mL (0-450); Osmolality Calculated 299 mOsm/kg (285-295); Potassium 4.1 mmol/L (3.5-5.1); Sodium 134 mmol/L (136-145)
== END 2025-04-23 11:55 | disposition home or self-care (01) ==
LOC: LAB 11:56
PROVIDERS: PCP Internal Medicine; Visit Provider Internal Medicine
DX: I50.42 Chronic combined systolic (congestive) and diastolic (congestive) heart failure (principal); N18.9 Chronic kidney disease, unspecified
CPT/HCPCS: 80048; 83880

== ENCOUNTER 2025-04-29 11:18 | Outpatient (CLI) | payer MEDICARE, SELFPAY ==
[2025-04-29 12:00] LABS: Anion Gap 19.7 (5-19); Blood Urea Nitrogen 63 mg/dL (8-23); Calcium 9.4 mg/dL (8.5-10.5); Carbon Dioxide 21 mmol/L (22-29); Chloride 100 mmol/L (98-107); Glucose 92 mg/dL (65-115); NT Pro B Type Natriuretic Pept 1858 pg/mL (0-450); Osmolality Calculated 302 mOsm/kg (285-295); Potassium 3.7 mmol/L (3.5-5.1); Sodium 137 mmol/L (136-145)
== END 2025-04-29 11:19 | disposition home or self-care (01) ==
PROVIDERS: PCP Internal Medicine; Visit Provider Internal Medicine
DX: I13.0 Hypertensive heart and chronic kidney disease with heart failure and stage 1 through stage 4 chronic kidney disease, or unspecified chronic kidney disease (principal); I50.42 Chronic combined systolic (congestive) and diastolic (congestive) heart failure; N18.9 Chronic kidney disease, unspecified
CPT/HCPCS: 80048; 83880

== ENCOUNTER → 2025-05-06 14:06 | Outpatient (BNVA) | payer MEDICARE, SELFPAY | PROVIDERS: PCP Internal Medicine; Visit Provider Thoracic Surgery (Cardiothoracic Vascular Surgery) | DX: I96 Gangrene, not elsewhere classified (principal); L97.511 Non-pressure chronic ulcer of other part of right foot limited to breakdown of skin | CPT/HCPCS: 97597; 99213; A6021 ==

== ENCOUNTER → 2025-05-13 11:05 | Outpatient (BNVA) | payer MEDICARE, SELFPAY | PROVIDERS: PCP Internal Medicine; Visit Provider Thoracic Surgery (Cardiothoracic Vascular Surgery) | DX: Z09 Encounter for follow-up examination after completed treatment for conditions other than malignant neoplasm (principal); Z87.2 Personal history of diseases of the skin and subcutaneous tissue | CPT/HCPCS: A6212 ==